=== PATIENT | male | born 1950 | race Caucasian/White ===

== ENCOUNTER 2022-11-28 10:15 | Outpatient (OUT) | payer MEDICARE, SELFPAY ==
--- NOTE | 2022-11-28 10:00 | CA_ITS ---
Patient: JOSE WEST Exam Date: 11/28/2022 : 1950 Gender:M Ordering : DR BERNADETTE KIM M.D. Admission #: [id number] Family : PETRA CASTELLANOS . Order #: [id number] CLICK HERE TO VIEW EXAM ECHOCARDIOGRAM REPORT PROCEDURE: CA ECHO DOPPLER COMPLETE INDICATIONS: Abnormal ECG, Hypertension, Mechanical Aortic Valve (2011) COMPARISON: None. DESCRIPTION: COMPLETE ECHOCARDIOGRAM Real-time transthoracic echocardiography with 2D, M-mode, spectral and color flow Doppler performed. QUALITY: Technical quality was good. LEFT VENTRICLE: Normal chamber size. Mild concentric left ventricular hypertrophy. Normal systolic function. LV EF: Normal left ventricular ejection fraction, (55-60%). DIASTOLIC: Normal diastolic function. ATRIAL SEPTUM: Visually appears intact. LEFT ATRIUM: Normal chamber size. RIGHT ATRIUM: Mild dilatation. RIGHT VENTRICLE: Normal chamber size. Normal right ventricular systolic function. TRICUSPID VALVE: Normal mobility and thickness. No stenosis with trivial regurgitation. Doppler studies reveal moderately (45-60) elevated right sided pressures. RVSP 48 mmHg MITRAL VALVE: Normal mobility and thickness. No evidence of mitral valve stenosis. Mild mitral annular calcification. Trivial mitral regurgitation. AORTIC VALVE: Mechanical valve appears well seated in the aortic position. Unable to assess Doppler flows accurately due to poor alignment of the Doppler beam with the aortic outflow. Trivial aortic regurgitation. AORTIC ROOT: Normal diameter and appearance. PULMONIC VALVE: Normal thickness and mobility. No stenosis. Mild regurgitation. PERICARDIUM: No evidence of pericardial effusion. IVC: Collapses with inspirations. PLEURA: CONCLUSION: 1. Concentric left ventricular hypertrophy. Normal ventricular systolic function. LVEF is 55 to 60%. 2. Mechanical aortic valve is well-seated with trivial regurgitation. Unable to assess systolic flows accurately due to poor alignment of the Doppler beam. 3. Moderately elevated right-sided pressures. 4. No pericardial effusion. Adult Echocardiography Procedure Report Left Ventricle LVEDD (3.7 - 5.6 cm): 4.50 cm LVESD (2.2 - 4.0 cm): 2.82 cm LVIVS thickness (0.6 - 1.2 cm): 1.20 cm LVPW thickness (0.5 - 1.0 cm): 1.20 cm e': 0.11 m/s E - e': 9.91 LVOT Max Gradient: 1.98 mm[Hg] LVOT Area (cm2): 0.70 m/s Peak Velocity (LVOT): 0.70 m/s LVOT Diameter 2.19 cm Left Atrium LA Volume Index (2D A2C): 32.00 ml/m2 Left Atrium Systolic Dimension: 3.41 cm Mitral Valve MV E to A Ratio: 1.08 Mitral Valve A-Wave Peak Velocity: 1.01 m/s Mitral Valve E-Wave Peak Velocity: 1.09 m/s Right Ventricle Aorta AO Root Diam: 3.31 cm Aortic Valve AoV Area (Peak Bubba): 1.08 cm2, 1.08 cm2 Peak Velocity(Antegrade Flow): 2.45 m/s Peak Gradient(Antegrade Flow): 24.00 mm[Hg] Tricuspid Valve Peak Velocity (Regurgitant Flow): 3.37 m/s, 2.83 m/s Pulmonic Valve Mean Gradient: 2.60 mm[Hg] Mean Velocity: 0.76 m/s Peak Velocity: 1.05 m/s, 0.98 m/s Peak Gradient: 4.39 mm[Hg], 3.81 mm[Hg] Right Atrium Right Atrium Systolic Pressure: 68.02 ml, 68.02 ml Dictated by: Jeremy Reddy M.D. on 12/03/2022 at 10:52 Approved by: Jeremy Reddy M.D. on 12/03/2022 at 11:02
== END 2022-11-28 10:16 ==
PROVIDERS: PCP Family Medicine; Visit Provider Internal Medicine Interventional Cardiology
DX: R94.31 Abnormal electrocardiogram [ECG] [EKG] (principal); I10 Essential (primary) hypertension; I51.7 Cardiomegaly; Z95.2 Presence of prosthetic heart valve
CPT/HCPCS: 93306

== ENCOUNTER 2022-12-02 18:33 | Outpatient (RCR) | payer MEDICARE, SELFPAY | END 2022-12-26 23:59 | disposition home or self-care (01) | LOC: MM 18:33 | PROVIDERS: PCP Internal Medicine; Visit Provider Internal Medicine | DX: Z51.81 Encounter for therapeutic drug level monitoring (principal); Z79.01 Long term (current) use of anticoagulants; I48.91 Unspecified atrial fibrillation | CPT/HCPCS: 85610; G0463 ==

== ENCOUNTER 2023-01-01 10:08 | Outpatient (RCR) | payer MEDICARE, SELFPAY | END 2023-01-26 17:06 | disposition home or self-care (01) | LOC: MM 10:08 | PROVIDERS: PCP Internal Medicine; Visit Provider Internal Medicine | DX: Z51.81 Encounter for therapeutic drug level monitoring (principal); Z79.01 Long term (current) use of anticoagulants; I48.91 Unspecified atrial fibrillation | CPT/HCPCS: 85610; G0463 ==

== ENCOUNTER 2023-01-27 09:35 | Outpatient (RCR) | payer MEDICARE, SELFPAY | END 2023-02-26 17:41 | disposition home or self-care (01) | LOC: MM 09:35 | PROVIDERS: PCP Internal Medicine; Visit Provider Internal Medicine | DX: Z51.81 Encounter for therapeutic drug level monitoring (principal); Z79.01 Long term (current) use of anticoagulants; I48.91 Unspecified atrial fibrillation | CPT/HCPCS: 85610; G0463 ==

== ENCOUNTER 2023-02-27 10:35 | Outpatient (RCR) | payer MEDICARE, SELFPAY | END 2023-03-27 16:59 | disposition home or self-care (01) | LOC: MM 10:35 | PROVIDERS: PCP Internal Medicine; Visit Provider Internal Medicine | DX: Z51.81 Encounter for therapeutic drug level monitoring (principal); Z79.01 Long term (current) use of anticoagulants; I48.91 Unspecified atrial fibrillation | CPT/HCPCS: 85610; G0463 ==

== ENCOUNTER 2023-03-30 02:05 | Outpatient (RCR) | payer MEDICARE, SELFPAY | END 2023-04-28 17:28 | disposition home or self-care (01) | LOC: MM 02:05 | PROVIDERS: PCP Family Medicine; Visit Provider Internal Medicine | DX: Z51.81 Encounter for therapeutic drug level monitoring (principal); Z79.01 Long term (current) use of anticoagulants; I48.91 Unspecified atrial fibrillation | CPT/HCPCS: 85610; G0463 ==

== ENCOUNTER 2023-03-30 14:39 | Outpatient (OUT) | payer MEDICARE, SELFPAY | END 2023-03-30 14:40 | disposition home or self-care (01) | LOC: PST 14:39 | PROVIDERS: PCP Family Medicine; Visit Provider Surgery | DX: Z01.818 Encounter for other preprocedural examination (principal); R19.5 Other fecal abnormalities ==

== ENCOUNTER 2023-04-08 06:20 | Day surgery (SDC) | payer MEDICARE, SELFPAY ==
--- NOTE | 2023-04-08 | OP_ITS ---
OPERATION DATE: ??04/08/2023 PREOPERATIVE DIAGNOSIS:? Positive fecal occult blood. POSTOPERATIVE DIAGNOSIS:? Severe sigmoid diverticulosis. PROCEDURE:? Colonoscopy to cecum. SURGEON:? Leo Knowles M.D. ANESTHESIA:? Monitored anesthesia care. ESTIMATED BLOOD LOSS:? Zero. INDICATIONS AND CONSENT:? Patient is a 73-year-old male with recent positive fecal occult blood.? Indications, risks, benefits, alternatives of proceeding with colonoscopy were explained extensively to the patient, including the risks of bleeding, colon perforation or anesthetic complications.? All of his questions were answered.? Informed consent was obtained. PROCEDURE:? Patient brought to the operating room, placed in the left lateral decubitus position.? Monitored anesthesia care was provided.? Rectal exam was performed which showed no masses or blood.? The scope was inserted into the anal canal.? Under direct visualization was advanced to the cecum where cecal markings were clearly identified.? There was noted to be a fair prep with some brown liquid stool and semi-solid stool throughout the colon that was partially irrigated clear.? Upon withdrawal of the scope, mucosal surfaces were carefully examined.? There were no mass lesions or polyps.? No inflammatory changes or ulcerations.? There was severe sigmoid diverticulosis without inflammatory changes or scarring.? The scope was retroflexed in the anal canal.? There was no significant hemorrhoidal disease.? Scope was then withdrawn.? Patient tolerated procedure well, was sent to recovery room in good condition.screening colonoscopy should be in 10 years if patient is in good health. CC:? Abhishek Wooten M.D. [id number]
[2023-04-08 06:38] VITALS: BP 135/71; PULSE 60; RESP 16; TEMP 35.9; O2SAT 100; BMI 35.2
[2023-04-08] MEDS: LACTATED RINGER'S SOLUTION 1,000 ML 50 ML IV (07:01)
[2023-04-08 07:59] VITALS: BP 98/54; PULSE 52; RESP 20; O2SAT 95
[2023-04-08 08:03] VITALS: BP 96/49; PULSE 60; RESP 20; O2SAT 93
[2023-04-08 08:18] VITALS: BP 122/66; PULSE 63; RESP 20; O2SAT 94
== END 2023-04-08 08:18 | disposition home or self-care (01) ==
PROVIDERS: PCP Family Medicine; Visit Provider Surgery
PROC: (CPT 45378; principal; 2023-04-08 07:30)
DX: R19.5 Other fecal abnormalities (principal); K57.30 Diverticulosis of large intestine without perforation or abscess without bleeding; I25.10 Atherosclerotic heart disease of native coronary artery without angina pectoris; J44.9 Chronic obstructive pulmonary disease, unspecified; I10 Essential (primary) hypertension; K21.9 Gastro-esophageal reflux disease without esophagitis; I25.2 Old myocardial infarction; E78.5 Hyperlipidemia, unspecified; Z79.01 Long term (current) use of anticoagulants; E66.01 Morbid (severe) obesity due to excess calories; Z68.35 Body mass index [BMI] 35.0-35.9, adult; Z95.2 Presence of prosthetic heart valve; G47.33 Obstructive sleep apnea (adult) (pediatric); Z79.82 Long term (current) use of aspirin; Z87.891 Personal history of nicotine dependence
CPT/HCPCS: 45378; J2704

== ENCOUNTER 2023-04-29 00:18 | Outpatient (RCR) | payer MEDICARE, SELFPAY | END 2023-05-28 16:07 | disposition home or self-care (01) | LOC: MM 00:18 | PROVIDERS: PCP Family Medicine; Visit Provider Internal Medicine | DX: Z51.81 Encounter for therapeutic drug level monitoring (principal); Z79.01 Long term (current) use of anticoagulants; I48.91 Unspecified atrial fibrillation | CPT/HCPCS: 85610; G0463 ==

== ENCOUNTER 2023-05-29 09:42 | Outpatient (RCR) | payer MEDICARE, SELFPAY | END 2023-06-26 15:25 | disposition home or self-care (01) | LOC: MM 09:42 | PROVIDERS: PCP Family Medicine; Visit Provider Internal Medicine | DX: Z51.81 Encounter for therapeutic drug level monitoring (principal); Z79.01 Long term (current) use of anticoagulants; I48.91 Unspecified atrial fibrillation | CPT/HCPCS: 85610; G0463 ==

== ENCOUNTER 2023-06-29 02:03 | Outpatient (RCR) | payer MEDICARE, SELFPAY | END 2023-07-29 17:06 | disposition home or self-care (01) | LOC: MM 02:03 | PROVIDERS: PCP Family Medicine; Visit Provider Internal Medicine | DX: Z51.81 Encounter for therapeutic drug level monitoring (principal); Z79.01 Long term (current) use of anticoagulants; I48.91 Unspecified atrial fibrillation ==

== ENCOUNTER 2023-07-30 01:42 | Outpatient (RCR) | payer MEDICARE, SELFPAY | END 2023-08-27 17:33 | disposition home or self-care (01) | LOC: MM 01:42 | PROVIDERS: PCP Family Medicine; Visit Provider Internal Medicine | DX: Z51.81 Encounter for therapeutic drug level monitoring (principal); Z79.01 Long term (current) use of anticoagulants; I48.91 Unspecified atrial fibrillation | CPT/HCPCS: 85610; G0463 ==

== ENCOUNTER 2023-08-28 01:23 | Outpatient (RCR) | payer MEDICARE, SELFPAY | END 2023-09-25 13:55 | disposition home or self-care (01) | LOC: MM 01:23 | PROVIDERS: PCP Family Medicine; Visit Provider Internal Medicine | DX: Z51.81 Encounter for therapeutic drug level monitoring (principal); Z79.01 Long term (current) use of anticoagulants; I48.91 Unspecified atrial fibrillation | CPT/HCPCS: 85610; G0463 ==

== ENCOUNTER 2023-09-28 00:14 | Outpatient (RCR) | payer MEDICARE, SELFPAY | END 2023-10-27 17:56 | disposition home or self-care (01) | LOC: MM 00:14 | PROVIDERS: PCP Family Medicine; Visit Provider Internal Medicine | DX: Z51.81 Encounter for therapeutic drug level monitoring (principal); Z79.01 Long term (current) use of anticoagulants; I48.91 Unspecified atrial fibrillation | CPT/HCPCS: 85610; G0463 ==

== ENCOUNTER 2023-10-28 00:20 | Outpatient (RCR) | payer MEDICARE, SELFPAY | END 2023-11-27 11:17 | disposition home or self-care (01) | LOC: MM 00:20 | PROVIDERS: PCP Family Medicine; Visit Provider Internal Medicine | DX: Z51.81 Encounter for therapeutic drug level monitoring (principal); Z79.01 Long term (current) use of anticoagulants; I48.91 Unspecified atrial fibrillation | CPT/HCPCS: 85610; G0463 ==

== ENCOUNTER 2023-11-26 10:37 | Outpatient (OUT) | payer MEDICARE, SELFPAY ==
--- OUTSIDE RECORDS SUMMARY | 2023-11-26 11:00 | XMS_ITS ---
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 Name Role Phone EMAUNEL ., DR LAMBERT Primary Care Unavailable FAWWAD, DIEZ H Attending Unavailable FAWWAD, DIEZ H Admitting Unavailable HOY ., DR LAMBERT Primary Care Unavailable FAWWAD, DIEZ H Attending Unavailable FAWWAD, DIEZ H Admitting Unavailable FAWWAD, DIEZ H Admitting Unavailable HOY ., DR LAMBERT Primary Care Unavailable FAWWAD, DIEZ H Attending Unavailable HOY ., DR LAMBERT Primary Care Unavailable FAWWAD, DIEZ H Attending Unavailable FAWWAD, DIEZ H Admitting Unavailable HOY ., DR LAMBERT Primary Care Unavailable FAWWAD, DIEZ H Attending Unavailable FAWWAD, DIEZ H Admitting Unavailable HOY ., DR LAMBERT Primary Care Unavailable HOY ., DR LAMBERT Consulting Unavailable HOY ., DR LAMBERT Admitting Unavailable HOY ., DR LAMBERT Attending Unavailable FAWWAD, DIEZ H Admitting Unavailable HOY ., DR LAMBERT Primary Care Unavailable FAWWAD, DIEZ H Attending Unavailable FAWWAD, DIEZ H Admitting Unavailable HOY ., DR LAMBERT Primary Care Unavailable FAWWAD, DIEZ H Attending Unavailable FAWWAD, DIEZ H Admitting Unavailable HOY ., DR LAMBERT Primary Care Unavailable FAWWAD, DIEZ H Attending Unavailable HOY ., DR LAMBERT Primary Care Unavailable FAWWAD, DIEZ H Attending Unavailable FAWWAD, DIEZ H Admitting Unavailable HOY ., DR LAMBERT Primary Care Unavailable FAWWAD, DIEZ H Attending Unavailable FAWWAD, DIEZ H Admitting Unavailable FAWWAD, DIEZ H Admitting Unavailable HOY ., DR LAMBERT Primary Care Unavailable FAWWAD, DIEZ H Attending Unavailable HOY ., DR LAMBERT Primary Care Unavailable JACKIE, DR AMBROSIO Boggs Consulting Unavailabl e REINJOSE A, DR AMBROSIO Boggs Attending Unavailabl e JACKIE, DR AMBROSIO Boggs Admitting Unavailabl e BAILEY ., VAL Consulting Unavailable HOY ., DR LAMBERT Attending Unavailable HOY ., DR LAMBERT Admitting Unavailable HOY ., DR LAMBERT Consulting Unavailable HOY ., DR LAMBERT Primary Care Unavailable REINECK, DR AMBROSIO Boggs Consulting Unavailabl e SNELL, MARTY Consulting Unavailable HOY ., DR LAMBERT Primary Care Unavailable HOY ., DR LAMBERT Admitting Unavailable HOY ., DR LAMBERT Consulting Unavailable HOY ., DR LAMBERT Attending Unavailable NEED[place]LE, DR LISBET Santamaria Consulting Unavailable RAULGAGE Consulting Unavailable HOY ., DR LAMBERT Primary Care Unavailable HOY ., DR LAMBERT Admitting Unavailable HOY ., DR LAMBERT Consulting Unavailable HOY ., DR LAMBERT Attending Unavailable HOY ., DR LAMBERT Primary Care Unavailable ELMP, DR FLEMING Consulting [facility]available [facility] DR FLEMING Attending Unavailable JULIO, DR FLMEING Admitting Unavailable Petra Wooten Primary Care Physician [phone] ALAYNA LANGLEY Attending Unavailable Leo TATE Attending Unavailable Leo TATE Attending Unavailable Allergies Allergy Classification Reported Allergen(s) Allergy Type Date of Onset Reaction(s) Facility (1 source) No Known Medication Allergies; Translations: [No Known Medication Allergies] Propensity to adverse reactions (disorder) [facility] Rep[facility] Encounters Encounter Date Encounter Type Care Provider Facility Start: 04-08-2023 End: 04-09-2023 ambulatory Leo TATE Facility:CD:[id number] Start: 03-18-2023 End: 03-19-2023 ambulatory Leo TATE Facility:[facility] Start: 03-18-2023 End: 03-18-2023 Patient encounter procedure Leo TATE General Surgery [facility]/Paula Villaseñor Start: 03-18-2023 End: 03-18-2023 [facility] Start: 03-06-2023 ambulatory Leo TATE Facility:[facility] Start: 03-05-2023 ambulatory Leo TATE Facility:[facility] Start: 11-14-2022 End: 11-15-[address] PETRA WOOTEN . Facility:[facility] Start: 10-27-2022 End: 11-26-[address] PETRA WOOTEN . Facility:[facility] Start: 09-29-2022 End: 10-24-[address] PETRA WOOTEN . Facility:[facility] Start: 08-27-2022 End: 09-26-[address] PETRA WOOTEN . Facility:[facility] Start: 07-30-2022 End: 08-27-[address] PETRA WOOTEN . Facility:[facility] Start: 06-30-2022 End: 07-30-[address] PETRA WOOTEN . Facility:[facility] Start: 06-08-2022 End: 06-08-[address] PETRA WOOTEN . Facility:[facility] Start: 06-02-2022 End: 06-02-[address] PETRA WOOTEN . Facility:[facility] Start: 05-29-2022 End: 06-29-2022 ambulatory Juan Luis EPSTEINLONNIE Facility:[facility] Start: 04-29-2022 End: 05-28-2022 ambulatory Juan Luis BEATRIZ Facility:[facility] Start: 03-30-2022 End: 04-28-2022 ambulatory Juan Luis BEATRIZ Facility:[facility] Start: 03-12-2022 End: 03-13-[address] PETRA WOOTEN . Facility:[facility] Start: 02-27-2022 End: 03-29-2022 ambulatory Juan Luis EPSTEINLONNIE Facility:[facility] Start: 01-27-2022 End: 02-26-2022 ambulatory Juan Luis BEATRIZ Facility:[facility] Start: 12-27-2021 End: 01-24-[address] PETRA WOOTEN . Facility:[facility] Start: 12-25-2021 End: 12-26-[address] PETRA WOOTEN . Facility:[facility] Start: 12-17-2021 End: 12-18-2021 Evaluation and management of inpatient DR PETRA WOOTEN . Facility:[facility] Immunizations Immunization Date Immunization Notes Care Provider Fa cility 04-03-2022 SARS-CoV-2 (COVID-19 ) [id number] Leo TATE [facility] 12-02-2021 SARS-CoV-2 mRNA (obtzrgochge-lacx-yling se) vaccine Leo TATE [facility] 03-23-2021 SARS-CoV-2 (COVID-19 ) mRNA BNT-162b2 vax Leo [facility] Comment on above: Result Comment: 2022: [id number] 08-30-2020 SARS-CoV-2 (COVID-19 ) mRNA BNT-162b2 vax [employer] [facility] Comment on above: Result Comment: 2022: [id number] 08-09-2020 SARS-CoV-2 (COVID-19 ) mRNA BNT-162b2 vax Leo [facility] Comment on above: Result Comment: 2022: [id number] Medications Current Medications Medication Drug Class(es) Dates Sig (Normalized) Sig (Original) aspirin 81 mg delayed release oral tablet (1 source) Platelet Aggregation Inhibitor, Nonsteroidal Anti-inflammatory Drug Start: 03-13-2023 take 1 tablet by mouth once daily aspirin 81 mg Oral EC Tab 81 mg = 1 tab(s), Oral, Daily, Refills(s) 0 Start Date: 03/13/23 Status: Ordered carvedilol 25 mg oral tablet (1 source) alpha-Adrenergic Benja, beta-Adrenergic Benja Start: 03-13-2023 take 1 tablet by mouth every eight hours carvedilol 25 mg Tab 25 mg = 1 tab(s), Oral, q8hr, Refills(s) 0 Start Date: 03/13/23 Status: Ordered Centrum Silver oral tablet (1 source) Start: 03-13-2023 take 1 tablet by mouth once daily Centrum Silver oral tablet 1 tab(s), Oral, Daily, Refill(s) 0 Start Date: 03/13/23 Status: Ordered chlorthalidone 25 mg oral tablet (1 source) Thiazide-like Diuretic Start: 03-13-2023 take 1 tablet by mouth once daily chlorthalidone 25 mg Tab 25 mg = 1 tab(s), Oral, Daily, Refills(s) 0 Start Date: 03/13/23 Status: Ordered citalopram 20 mg oral tablet (1 source) Serotonin Reuptake Inhibitor Start: 03-18-2023 take 1 tablet by mouth once daily CeleXA 20 mg Tab 20 mg = 1 tab(s), Oral, Daily, Refills(s) 0 Start Date: 03/18/23 Status: Ordered cloNIDine hydrochloride 0.1 mg oral tablet (1 source) Central alpha-2 Adrenergic Agonist Start: 03-13-2023 take 1 tablet by mouth three times daily cloNIDine 0.1 mg tab 0.1 mg = 1 tab(s), Oral, TID, Refills(s) 0 Start Date: 03/13/23 Status: Ordered doxazosin 8 mg oral tablet (1 source) alpha-Adrenergic Benja Start: 03-13-2023 take 1 tablet by mouth once daily doxazosin 8 mg oral tablet 8 mg = 1 tab(s), Oral, Daily, Refills(s) 0 Start Date: 03/13/23 Status: Ordered gemfibrozil 600 mg oral tablet (1 source) Peroxisome Proliferator Receptor alpha Agonist Start: 03-13-2023 take 1 tablet by mouth twice daily Lopid 600 mg Tab 600 mg = 1 tab(s), Oral, BID, Refills(s) 0 Start Date: 03/13/23 Status: Ordered lisinopril 40 mg oral tablet (1 source) Angiotensin Converting Enzyme Inhibitor Start: 03-13-2023 take 1 tablet by mouth once daily lisinopril 40 mg Tab 40 mg = 1 tab(s), Oral, Daily, Refills(s) 0 Start Date: 03/13/23 Status: Ordered pantoprazole 40 mg delayed release oral tablet (1 source) Proton Pump Inhibitor Start: 03-13-2023 take 1 tablet by mouth once daily Pantoprazole [address] Tab 40 mg = 1 tab(s), Oral, Daily, Refills(s) 0 Start Date: 03/13/23 Status: Ordered simvastatin 40 mg oral tablet (1 source) HMG-CoA Reductase Inhibitor Start: 03-13-2023 take 1 tablet by mouth once daily in the evening simvastatin 40 mg Tab 40 mg = 1 tab(s), Oral, qPM, Refills(s) 0 Start Date: 03/13/23 Status: Ordered warfarin sodium 4 mg oral tablet (1 source) Vitamin K Antagonist Start: 03-13-2023 warfarin 4 mg Tab 4 mg = 1 tab(s), Oral, as directed, Refills(s) 0 Start Date: 03/13/23 Status: Ordered Payers Date Payer Category Payer Unknown [id number] 1957 Medicare [id number] 1957 Unknown [id number] 1957 Unknown [id number] 1950 Unknown [id number] 2.16.84 0.1.914599.3.579.2.593 1950 Unknown [id number] 2.16.84 0.1.147863.3.579.2.593 1950 Unknown [id number] 2.16.84 0.1.235650.3.579.2.593 1950 Unknown [id number] 2.16.84 0.1.035567.3.579.2.593 1950 Unknown [id number] 2.16.84 0.1.943623.3.579.2.593 1950 Unknown [id number] 2.16.84 0.1.897213.3.579.2.593 1950 Unknown [id number] 2.16.84 0.1.432769.3.579.2.593 1950 Unknown [id number] 2.16.84 0.1.534884.3.579.2.593 1950 Unknown [id number] 2.16.84 0.1.373988.3.579.2.593 1950 Unknown [id number] 2.16.84 0.1.619339.3.579.2.593 1950 Unknown [id number] 2.16.84 0.1.785686.3.579.2.593 1950 Unknown [id number] 2.16.84 0.1.663891.3.579.2.593 1950 Unknown [id number] 2.16.84 0.1.722516.3.579.2.593 1950 Unknown [id number] 2.16.84 0.1.589319.3.579.2.593 1950 Unknown [id number] 2.16.84 0.1.438571.3.579.2.593 1950 Unknown [id number] 2.16.84 0.1.842689.3.579.2.593 1950 Unknown [id number] 2.16.84 0.1.024036.3.579.2.593 1950 Unknown [id number] 2.16.8 40.1.288779.3.579.2.727 1950 Unknown [id number] 2.16.8 40.1.184562.3.579.2.727 1950 Unknown [id number] 2.16.8 40.1.369099.3.579.2.727 Problems Active Problems Problem Classification Problem Date Documented Da te Episodic/Chronic Chronic obstructive pulmonary disease and bronchiectasis (2 sources) Chronic obstructive pulmonary disease, unspecified; Translations: [Chronic obstructive lung disease] Onset: 01-01-2022 03-13-2023 Chronic Congestive heart failure; nonhypertensive (2 sources) Heart failure, unspecified; Translations: [Heart failure] Onset: 06-11-2022 03-13-2023 Chronic Coronary atherosclerosis and other heart disease (5 sources) Old myocardial infarction; Translations: [Coronary arteriosclerosis] Onset: 06-11-2022 03-13-2023 Chronic Diabetes mellitus without complication (1 source) Type 2 diabetes mellitus without complications; Translations: [TYPE 2 DM WITHOUT COMPLICATIONS] Onset: 11-17-2022 Chronic Disorders of lipid metabolism (3 sources) Hyperlipidemia, unspecified; Translations: [Pure hypercholesterolemi a, unspecified] Onset: 06-11-2022 03-13-2023 Chronic Diverticulosis and diverticulitis (1 source) Diverticular disease 03-13-2023 Chronic Esophageal disorders (2 sources) Gastro-esophageal reflux disease without esophagitis; Translations: [Gastroesophageal reflux disease] Onset: 11-17-2022 03-13-2023 Chronic Essential hypertension (5 sources) Essential (primary) hypertension; Translations: [Essential hypertension] Onset: 11-14-2022 Chronic Headache; including migraine (4 sources) Headache; including migraine; Translations: [HEADACHE UNSPECIFIED] Onset: 12-25-2021 Heart valve disorders (1 source) Presence of prosthetic heart valve; Translations: [PRESENCE OF PROSTHETIC HEART VALVE] Onset: 01-01-2022 Chronic Hemorrhoids (1 source) Internal hemorrhoids 03-13-2023 Episodic Hypertension with complications and secondary hypertension (2 sources) Hypertensive heart disease with heart failure; Translations: [Hypertensive urgency] Onset: 01-01-2022 Chronic Other aftercare (5 sources) Encounter for therapeutic drug level monitoring; Translations: [ENC THERAPEUTC DRUG LEVL MONITORING] Onset: 01-01-2022 Episodic Other aftercare (1 source) 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; Translations: [GROUP HOME CURRNT USE ANTICOAGULANTS] Onset: 11-26-2022 Episodic Other aftercare (2 sources) Long-term current use of anticoagulant; Translations: [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] Onset: 03-18-2023 Episodic Other and ill-defined heart disease (1 source) Cardiomegaly 03-13-2023 Chronic Other circulatory disease (1 source) Carotid bruit 03-13-2023 Episodic Other gastrointestinal disorders (1 source) Abnormal feces; Translations: [Other fecal abnormalities] Onset: 03-18-2023 Episodic Other gastrointestinal disorders (1 source) Occult blood in stools 03-13-2023 Episodic Other nutritional; endocrine; and metabolic disorders (1 source) Body mass index 30+ - obesity 03-18-2023 Chronic Other nutritional; endocrine; and metabolic disorders (1 source) Morbid obesity 03-18-2023 Chronic Other screening for suspected conditions (not mental disorders or infectious disease) (2 sources) Encounter for screening for malignant neoplasm of prostate; Translations: [Encounter for screening for malignant neoplasm of rectum] Onset: 11-17-2022 Episodic Residual codes; unclassified (1 source) Sleep apnea 03-13-2023 Chronic Substance-related disorders (1 source) Nicotine dependence 03-18-2023 Chronic Unclassified (1 source) PERSONAL HISTORY OF COVID-19; Translations: [PERSONAL HISTORY OF COVID-19] Onset: 06-11-2022 Unclassified (4 sources) CONTACT W/AND (SUSP) EXPOS COVID-19; Translations: [CONTACT W/AND (SUSP) EXPOS COVID-19] Onset: 01-01-2022 Unclassified (1 source) COUGH, UNSPECIFIED; Translations: [COUGH, UNSPECIFIED] Onset: 06-07-2022 Past or Other Problems Problem Classification Problem Date Documented Da te Episodic/Chronic Diabetes mellitus without complication (4 sources) Hyperglycemia, unspecified; Translations: [HYPERGLYCEMIA UNSPECIFIED] Onset: 06-08-2022 Episodic Other aftercare (1 source) 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; Translations: [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 CURRENT DRUG THERAPY] Onset: 06-11-2022 Episodic Other aftercare (1 source) custodial (current) use of aspirin; Translations: [GROUP HOME CURRENT USE OF ASPIRIN] Onset: 01-01-2022 Episodic Other lower respiratory disease (1 source) Shortness of breath; Translations: [SHORTNESS OF BREATH] Onset: 12-24-2021 Episodic Other upper respiratory disease (1 source) Nasal congestion; Translations: [NASAL CONGESTION] Onset: 06-07-2022 Episodic Screening and history of mental health and substance abuse codes (1 source) Personal history of nicotine dependence; Translations: [PERSONAL HISTORY OF NICOTINE DEPEND] Onset: 01-01-2022 Episodic Unclassified (1 source) CONTACT W/AND (SUSP) EXPOS COVID-19; Translations: [CONTACT W/AND (SUSP) EXPOS COVID-19] Onset: 06-02-2022 Procedures Date Procedure Procedure Detail Performing Clinician Start: 11-14-[address] LIZZIE WOOTEN . Comment on above: Performed By: #### C MP, BNP #### [facility] [address] [place] [address] Dr. Kamlajit Browning Start: 03-17-2018 Colonoscopy Leo KONG Start: 08-28-2011 Replacement of aorti c valve Leo TATE Results Test Name Value Interpretation Reference Range Facility Outside Colonoscopyon 2022 Outside Colonoscopy [id number]#1 .00TIFF [facility] Reminderson 04-09-2023 Reminders - From: Karlene Stewart LPN To: N - Clinical; Sent: 04/09/2023 10:49:10 EDT Show up: 03/09/2033 07:00:00 EDT Subject: colonoscopy recall Due Date/Time: 04/08/2033 07:00:00 EDT Reminder/Recall Patient due for screening colonoscopy 04/08/2033. [facility] Consent for Procedure/Surger yon 03-19-2023 Consent for Procedure/Surgery [id number] 1.00CD:127 [facility] Facesheeton 03-19-2023 Facesheet [id number]# 1.00CD:127 [facility] Ambulatory Visit Summaryon 0 03-18-2023 Ambulatory Visit Summary MARTIN WEST :1950 Visit Date:03/18/2023 Ambulatory Visit Instructions Your Diagnosis Fecal occult blood test positive custodial current use of anticoagulant Your Care Team Attending Physician - BENSON RODRIGUES, Leo Melgar Primary Care Physician - Petra Wooten MD This Is Your Medications List Contact prescribing physician if questions or concerns aspirin (aspirin 81 mg Oral EC Tab) carvedilol (carvedilol 25 mg Tab) chlorthalidone (chlorthalidone 25 mg Tab) citalopram (CeleXA 20 mg Tab) clonidine (cloNIDine 0.1 mg tab) doxazosin (doxazosin 8 mg oral tablet) gemfibrozil (Lopid 600 mg Tab) lisinopril (lisinopril 40 mg Tab) multivitamin with minerals (Centrum Silver oral tablet) pantoprazole (Pantoprazole [address] Tab) simvastatin (simvastatin 40 mg Tab) warfarin (warfarin 4 mg Tab) Procedures Performed Colonoscopy (03/17/2018), AVR - Aortic valve replacement (08/2011). Discharge Vitals Heart Rate (Peripheral) 70 Respiratory Rate 16 Blood Pressure 130/86 Height 168.9 cm Height 66 in Weight 100.8 kg Weight 221.76 lb BMI 35.33 Medications What How Much When Instructions Unchanged aspirin (aspirin 81 mg Oral EC Tab) 1 Tablets By Mouth Every day Contact prescribing physician if questions or concerns Unchanged carvedilol (carvedilol 25 mg Tab) 1 Tablets By Mouth Every 8 hours Contact prescribing physician if questions or concerns Unchanged chlorthalidone (chlorthalidone 25 mg Tab) 1 Tablets By Mouth Every day Contact prescribing physician if questions or concerns Unchanged citalopram (CeleXA 20 mg Tab) 1 Tablets By Mouth Every day Contact prescribing physician if questions or concerns Unchanged clonidine (cloNIDine 0.1 mg tab) 1 Tablets By Mouth 3 times a day Contact prescribing physician if questions or concerns Unchanged doxazosin (doxazosin 8 mg oral tablet) 1 Tablets By Mouth Every day Contact prescribing physician if questions or concerns Unchanged gemfibrozil (Lopid 600 mg Tab) 1 Tablets By Mouth 2 times a day Contact prescribing physician if questions or concerns Unchanged lisinopril (lisinopril 40 mg Tab) 1 Tablets By Mouth Every day Contact prescribing physician if questions or concerns Unchanged multivitamin with minerals (Centrum Silver oral tablet) 1 Tablets By Mouth Every day Contact prescribing physician if questions or concerns Unchanged pantoprazole (Pantoprazole [address] Tab) 1 Tablets By Mouth Every day Contact prescribing physician if questions or concerns Unchanged simvastatin (simvastatin 40 mg Tab) 1 Tablets By Mouth Once a day (in the evening) Contact prescribing physician if questions or concerns Unchanged warfarin (warfarin 4 mg Tab) 1 Tablets By Mouth as directed Contact prescribing physician if questions or concerns Allergies No Known Allergies No Known Medication Allergies Problems Ongoing - Any problem that you are currently receiving treatment for. 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 Nicotine dependence Normal [facility] Office Visiton 03-18-2023 Follow-up visit [id number] Martin West 1950 M Date Provider Department Center 03/18/2023 [id number], EHAB CARD [facility] No family history on file Level of Service:70330 [place] OFFICE/OUTPATIENT ESTABLISHED LOW MDM 20-29 MIN Normal [facility] Physician Referralon 023 Physician Referral [id number]. 00CD:127 Normal [facility] INSULINon 11-15-2022 Insulin 20.3 uIU/mL Normal 2.6-24.9 [facility] Comment on above: Performed By: #### I NSULIN #### [facility] [address] [place] [address] Dr. Kamaljit Browning CBC AUTO DIFFon 11-14-2022 BASO # 0.0 103/ul Normal 0.0-0.1 [facility] Comment on above: Performed By: #### C MP, BNP #### [facility] [address] [place] [address] Dr. Kamaljit Browning Basophils/100 WBC (Bld) 0.8 % Normal 0.2-2.0 [facility] Comment on above: Performed By: #### C MP, BNP #### [facility] [address] [place] [address] Dr. Kamaljit Brownnig EO # 0.1 103/ul Normal 0.0-0.7 [facility] Comment on above: Performed By: #### C MP, BNP #### [facility] [address] [place] [address] Dr. Kamaljit Browning Eosinophils/100 WBC (Bld) 1.7 % Normal 0.9-7.0 [facility] Comment on above: Performed By: #### C MP, BNP #### [facility] [address] [place] [address] Dr. Kamaljit Browning Erythrocyte distribution width (RBC) [Ratio] 12.7 % Normal 11.0-15.0 [facility] Comment on above: Performed By: #### C MP, BNP #### [facility] [address] [place] [address] Dr. Kamaljit Browning Hematocrit (Bld) [Volume fraction] 38.4 % Critically low 42.0-54.0 [facility] Comment on above: Performed By: #### C MP, BNP #### [facility] [address] [place] [address] Dr. Kamaljit Browning Hemoglobin (Bld) [Mass/Vol] 12.8 g/dL Critically low 14.0-18.0 [facility] Comment on above: Performed By: #### C MP, BNP #### [facility] [address] [place] [address] Dr. Kamaljit Browning IG # 0.02 10e3/ul Normal 0.00-0.03 [facility] Comment on above: Performed By: #### C MP, BNP #### [facility] [address] [place] [address] Dr. Kamaljit Browning IG % 0.4 % Normal 0.0-0.5 [facility] Comment on above: Performed By: #### C MP, BNP #### [facility] [address] [place] [address] Dr. Kamaljit Browning LYMPH # 0.8 103/ul Critically low 1.2-3.8 [facility] Comment on above: Performed By: #### C MP, BNP #### [facility] [address] [place] [address] Dr. Kamaljit Browning Lymphocytes/100 WBC (Bld) 15.2 % Critically low 20.5-60.0 [facility] Comment on above: Performed By: #### C MP, BNP #### [facility] [address] [place] [address] Dr. Kamaljit Browning MANUAL DIFF REQ NO Normal [facility] Comment on above: Performed By: #### C MP, BNP #### [facility] [address] [place] [address] Dr. Kamaljit Browning MCH (RBC) [Entitic mass] 30.6 pg Normal 25.9-34.0 [facility] Comment on above: Performed By: #### C MP, BNP #### [facility] [address] [address] [address] Kamaljit Browning MCHC (RBC) [Mass/Vol] 33.3 g/dL Normal 29.9-35.2 [facility] Comment on above: Performed By: #### C MP, BNP #### [facility] [address] [place] [address] Dr. Kamaljit Browning MCV (RBC) [Entitic vol] 91.9 fL Normal 80.0-94.0 [facility] Comment on above: Performed By: #### C MP, BNP #### [facility] [address] [place] [address] Dr. Kamaljit Browning MONO # 0.5 103/ul Normal 0.3-0.8 [facility] Comment on above: Performed By: #### C MP, BNP #### [facility] [address] [place] [address] Dr. Kamaljit Browning Monocytes/100 WBC (Bld) 8.9 % Normal 1.7-12.0 [facility] Comment on above: Performed By: #### C MP, BNP #### [facility] [address] [place] [address] Dr. Kamaljit Browning NEUT # 3.8 103/ul Normal 1.4-6.5 [facility] Comment on above: Performed By: #### C MP, BNP #### [facility] [address] [place] [address] Dr. Kamaljit Browning Neutrophils/100 WBC (Bld) 73.0 % Normal 43.0-75.0 [facility] Comment on above: Performed By: #### C MP, BNP #### [facility] [address] [place] [address] Dr. Kamaljit Browning Platelet mean volume (Bld) [Entitic vol] 12.5 fL Normal 9.5-13.5 [facility] Comment on above: Performed By: #### C MP, BNP #### [facility] [address] [place] [address] Dr. Kamaljit Browning PLT 126 103/ul Critically low 150-450 [facility] Comment on above: Performed By: #### C MP, BNP #### [facility] [address] [address] [address] Kamaljit Browning RBC 4.18 106/ul Critically low 4.70-6.10 [facility] Comment on above: Performed By: #### C MP, BNP #### [facility] [address] [address] [address] Kamaljit Browning WBC 5.2 103/ul Normal 4.0-11.0 [facility] Comment on above: Performed By: #### C MP, BNP #### [facility] [address] [address] [address] Kamaljit Browning FREE THYROXINE INDEX T7on FTI 2.31 Normal 1.30-4.50 [facility] Comment on above: Performed By: #### C BC #### [facility] [address] [address] [address] Kamaljit Browning T3U 34.0 % Normal 33.0-40.0 [facility] Comment on above: Performed By: #### C BC #### [facility] [address] [address] [address] Kamaljit Browning T4 [Mass/Vol] 6.80 ug/dL Normal 4.50-12.10 [facility] Comment on above: Performed By: #### C BC #### [facility] [address] [address] [address] Kamaljit Browning GLYCOHEMOGLOBIN A1Con 2022 ADA RECOMMENDATION SEE BELOW Normal [facility] Comment on above: Result Comment: ADA RECOMMENDED LIMIT 4.0 - 6.0 ADA THERAPEUTIC TARGET < 7.0 ACTION SUGGESTED > 7.0 Performed By: #### A 1C #### [facility] [address] [address] [address] Kamaljit Browning Glucose [Mass/Vol] 154 mg/dL Normal [facility] Comment on above: Performed By: #### A 1C #### [facility] [address] [address] [address] Kamaljit Browning HbA1c (Bld) [Mass fraction] 7.0 % Critically high 4.5-6.2 [facility] Comment on above: Performed By: #### A 1C #### [facility] [address] [address] [address] Kamaljit Browning LIPID PROFILEon 11-14-2022 CHOL-HDL RATIO NORM SEE BELOW Normal [facility] Comment on above: Result Comment: 3.3 - 4.4 LOW RISK 4.4 - 7.1 AVERAGE RISK 7.1 - 11.0 MODERATE RISK >11.0 HIGH RISK Performed By: #### A 1C #### [facility] [address] [address] [address] Kamaljit Browning Cholesterol [Mass/Vol] 148 mg/dL Normal <=200 [facility] Comment on above: Performed By: #### A 1C #### [facility] [address] [address] [address] Kamaljit Browning Cholesterol in HDL [Mass/Vol] 41 mg/dL Normal 40-60 [facility] Comment on above: Performed By: #### A 1C #### [facility] [address] [address] [address] Kamaljit Browning Cholesterol in LDL [Mass/Vol] 81.6 mg/dL Normal [facility] Comment on above: Performed By: #### A 1C #### [facility] [address] [address] [address] Kamaljit Browning Cholesterol.total/Ch olesterol in HDL [Mass ratio] 3.6 {ratio} Normal [facility] Comment on above: Performed By: #### A 1C #### [facility] [address] [address] [address] Kamaljit Browning HDL NORMAL > or = 60 mg/dl - LO W CARDIOVASCULAR RISK <40 mg/dl - HIGH CARDIOVASCULAR RISK Normal [facility] Comment on above: Performed By: #### A 1C #### [facility] [address] [address] [address] Kamaljit Browning LDL CALC NORMAL SEE BELOW Normal [facility] Comment on above: Result Comment: <100 mg/dl OPTIMAL 100 - 129 mg/dl NEAR OR ABOVE OPTIMAL 130 - 159 mg/dl BORDERLINE HIGH 160 - 189 mg/dl HIGH >190 mg/dl VERY HIGH Performed By: #### A 1C #### [facility] [address] [place] [address] Dr. Kamaljit Browning Triglyceride [Mass/Vol] 127 mg/dL Normal <=150 [facility] Comment on above: Performed By: #### A 1C #### [facility] [address] [place] [address] Dr. Kamaljit Browning VLDL CALC 25.4 mg/dL Normal [facility] Comment on above: Performed By: #### A 1C #### [facility] [address] [place] [address] Dr. Kamaljit Browning PROF 14(COMP METB)on 023 Albumin [Mass/Vol] 4.2 g/dL Normal 3.4-5.0 [facility] Comment on above: Performed By: #### A 1C #### [facility] [address] [place] [address] Dr. Kamaljit Browning Albumin/Globulin [Mass ratio] 1.3 {ratio} Normal [facility] Comment on above: Performed By: #### A 1C #### [facility] [address] [place] [address] Dr. Kamaljit Browning ALP [Catalytic activity/Vol] 79 U/L Normal 46-116 [facility] Comment on above: Performed By: #### A 1C #### [facility] [address] [place] [address] Dr. Kamaljit Browning ALT [Catalytic activity/Vol] 27 U/L Normal 16-63 [facility] Comment on above: Performed By: #### A 1C #### [facility] [address] [place] [address] Dr. Kamaljit Browning Anion gap [Moles/Vol] 15.0 mmol/L Normal [facility] Comment on above: Performed By: #### A 1C #### [facility] [address] [place] [address] Dr. Kamaljit Browning AST [Catalytic activity/Vol] 23 U/L Normal 15-37 [facility] Comment on above: Performed By: #### A 1C #### [facility] [address] [place], [place] [id number] Dr. Kamaljit Browning Bilirubin [Mass/Vol] 0.3 mg/dL Normal 0.2-1.0 [facility] Comment on above: Performed By: #### A 1C #### [facility] [address] [place] [address] Dr. Kamaljit Browning Calcium [Mass/Vol] 9.0 mg/dL Normal 8.5-10.[address] [facility] Comment on above: Performed By: #### A 1C #### [facility] [address] [place] [address] Dr. Kamaljit Browning Chloride [Moles/Vol] 105 mmol/L Normal 98-107 [facility] Comment on above: Performed By: #### A 1C #### [facility] [address] [place] [address] Dr. Kamaljit Browning CO2 [Moles/Vol] 24.7 mmol/L Normal 21.0-32.0 [facility] Comment on above: Performed By: #### A 1C #### [facility] [address] [place] [address] Dr. Kamaljit Browning Creatinine [Mass/Vol] 1.55 mg/dL Critically high 0.70-1.30 [facility] Comment on above: Performed By: #### A 1C #### [facility] [address] [place] [address] Dr. Kamaljit Browning EGFR-AF SLOVAK 54 mL/min/1.73m2 Critically low >=60 [facility] Comment on above: Performed By: #### A 1C #### [facility] [address] [place] [address] Dr. Kamaljit Browning EGFR-NON AF SLOVAK 45 mL/min/1.73m2 Critically low >=60 [facility] Comment on above: Performed By: #### A 1C #### [facility] [address] [place] [address] Dr. Kamaljit Browning Globulin (S) [Mass/Vol] 3.3 g/dL Normal [facility] Comment on above: Performed By: #### A 1C #### [facility] [address] [place] [address] Dr. Kamaljit Browning Glucose [Mass/Vol] 129 mg/dL Critically high 74-106 [facility] Comment on above: Performed By: #### A 1C #### [facility] [address] [address] [address] Kamaljit Browning Potassium [Moles/Vol] 4.7 mmol/L Normal 3.5-5.1 [facility] Comment on above: Performed By: #### A 1C #### [facility] [address] [address] [address] Kamaljit Browning Protein [Mass/Vol] 7.5 g/dL Normal 6.4-8.[address] [facility] Comment on above: Performed By: #### A 1C #### [facility] [address] [address] [address] Kamaljit Browning Sodium [Moles/Vol] 140 mmol/L Normal 136-[address] [facility] Comment on above: Performed By: #### A 1C #### [facility] [address] [address] [address] Kamaljit Browning Urea nitrogen [Mass/Vol] 30.0 mg/dL Critically high 7.0-18.0 [facility] Comment on above: Performed By: #### A 1C #### [facility] [address] [address] [address] Kamaljit Browning Urea nitrogen/Creatinine [Mass ratio] 19.4 mg/mg Normal [facility] Comment on above: Performed By: #### A 1C #### [facility] [address] [address] [address] Kamaljit Browning TSHon 11-14-2022 TSH 1.597 uIU/mL Normal 0.358-3.740 [facility] Comment on above: Performed By: #### A 1C #### [facility] [address] [address] [address] Kamaljit Browning URIC ACID SERUMon 11-14-2022 Urate [Mass/Vol] 9.4 mg/dL Critically high 3.5-7.2 [facility] Comment on above: Performed By: #### C BC #### [facility] [address] [address] [address] Kamaljit Browning OCC BLD IMMUNO SCREENon 10-27 OCCULT BLOOD Positive Abnormal NEGATIVE [facility] Comment on above: Performed By: #### C MP, BNP #### [facility] [address] [address] [address] Kamaljit Browning POINT OF CARE GLUCOSEon 05-29 Glucose [Mass/Vol] 329 mg/dL Critically high 74-106 [facility] Comment on above: Performed By: #### A 1C #### [facility] [address] [address] [address] Kamaljit Browning Covid-19 PCR ([facility])on SARS-CoV-2 (COVID-19) RNA SOURAV+probe Ql (Unsp spec) Not detected Normal NOT DETECTED [facility] Comment on above: Result Comment: When diagnostic testing is negative, the possibility of a false negative should be considered in the context of a patient's recent exposures and the presence of clinical signs and symptoms consistent with SARS-CoV-2. This test is not yet approved or cleared by the [place] FDA. When there are no FDA-approved or cleared tests available, and other criteria are met, FDA can make tests available under an emergency access mechanism called an Emergency Use Authorization (EUA). The EUA for this test is supported by the [place] of Health and Human Service's declaration that circumstances exist to justify the emergency use of in vitro diagnostics for the detection and/or diagnosis of the virus that causes COVID-19. This EUA will remain in effect for the duration of the COVID-19 declaration justifying emergency of IVDs, unless it is terminated or revoked by the FDA (after which the test may no longer be used). Performed By: #### A 1C #### [facility] [address] [place] [address] Dr. Kamaljit Browning INFLUENZA A AND B AGon 06-02 INFLUANEGH SEE BELOW Normal [facility] Comment on above: Result Comment: Nega tive for Flu A protein angiten. Infection due to Flu A cannot be ruled out. Flu A angiten in the sample may be below the detection limit of the test. Performed By: #### C BC #### [facility] [address] [place] [address] Dr. Kamaljit Browning [facility] SEE BELOW Normal [facility] Comment on above: Result Comment: Nega tive for Flu B protein antigen. Infection due to Flu B cannot be ruled out. Flu B antigen in the sample may be below the detection limit of the test. Performed By: #### C BC #### [facility] [address] [place] [address] Dr. Kamaljit Browning INFLUENZA A AG Negative Normal NEGATIVE SEE COMMENT [facility] Comment on above: Performed By: #### C BC #### [facility] [address] [place] [address] Dr. Kamaljit Browning INFLUENZA B AG Negative Normal NEGATIVE SEE COMMENT [facility] Comment on above: Performed By: #### C BC #### [facility] [address] [place] [address] Dr. Kamaljit Browning INTERNAL CONTROLS Within Normal Limits Normal Wi thin Normal Limits [facility] Comment on above: Performed By: #### C BC #### [facility] [address] [place] [address] Dr. Kamaljit Browning PROF CHEM 8 (BAS METB)on Anion gap [Moles/Vol] 13.1 mmol/L Normal [facility] Comment on above: Performed By: #### C BC #### [facility] [address] [place] [address] Dr. Kamaljit Browning Calcium [Mass/Vol] 8.9 mg/dL Normal 8.5-10.1 [facility] Comment on above: Performed By: #### C BC #### [facility] [address] [place] [address] Dr. Kamaljit Browning Chloride [Moles/Vol] 105 mmol/L Normal 98-107 [facility] Comment on above: Performed By: #### C BC #### [facility] [address] [place] [address] Dr. Kamaljit Browning CO2 [Moles/Vol] 27.3 mmol/L Normal 21.0-32.0 [facility] Comment on above: Performed By: #### C BC #### [facility] [address] [address] [address] Kamaljit Browning Creatinine [Mass/Vol] 1.28 mg/dL Normal 0.70-1.30 [facility] Comment on above: Performed By: #### C BC #### [facility] [address] [address] [address] Kamaljit Browning EGFR-AF SLOVAK >60 Normal >=60 [facility] Comment on above: Performed By: #### C BC #### [facility] [address] [address] [address] Kamaljit Browning EGFR-NON AF SLOVAK 56 mL/min/1.73m2 Critically low >=60 [facility] Comment on above: Performed By: #### C BC #### [facility] [address] [address] [address] Kamaljit Browning Glucose [Mass/Vol] 119 mg/dL Critically high 74-106 [facility] Comment on above: Performed By: #### C BC #### [facility] [address] [address] [address] Kamaljit Browning Potassium [Moles/Vol] 4.4 mmol/L Normal 3.5-5.1 [facility] Comment on above: Performed By: #### C BC #### [facility] [address] [address] [address] Kamaljit Browning Sodium [Moles/Vol] 141 mmol/L Normal 136-[address] [facility] Comment on above: Performed By: #### C BC #### [facility] [address] [address] [address] Kamaljit Browning Urea nitrogen [Mass/Vol] 20.0 mg/dL Critically high 7.0-18.0 [facility] Comment on above: Performed By: #### C BC #### [facility] [address] [address] [address] Kamaljit Browning Urea nitrogen/Creatinine [Mass ratio] 15.6 mg/mg Normal [facility] Comment on above: Performed By: #### C BC #### [facility] [address] [place] [address] Dr. Kamaljit Browning METANEPHRINES PLASMA FREEon 01-18-2022 Metanephrine, Pl 46.2 pg/mL Normal 0.0-88.0 [facility] Comment on above: Performed By: #### C MP, BNP #### [facility] [address] [place] [address] Dr. Kamaljit Browning Normetanephrine, Pl 33.2 pg/mL Normal 0.0-285.2 [facility] Comment on above: Performed By: #### C MP, BNP #### [facility] [address] [place] [address] Dr. Kamaljit Browning ALDOSTERONE: RENIN RATIOon 0 01-08-2022 Aldos/Renin Ratio UPTCAL Normal [facility] Comment on above: Result Comment: Unab le to calculate result since non-numeric result obtained for component test. Units: ng/dL per ng/mL/hr Performed By: #### A LDOREN #### [facility] [address] [place] [address] Dr. Kamaljit Browning Aldosterone <1.0 Normal 0.0-30.0 [facility] Comment on above: Performed By: #### A LDOREN #### [facility] [address] [place] [address] Dr. Kamaljit Browning Renin Activity, Plasma <0.167 Critically low 0.167-5.380 [facility] Comment on above: Performed By: #### A LDOREN #### [facility] [address] [place] [address] Dr. Kamaljit Browning CATECHOLAMINES FRAC, PLASMAo n 12-31-2021 Dopamine, Pl <30 Normal 0-48 [facility] Comment on above: Performed By: #### C MP, BNP #### [facility] [address] [place] [address] Dr. Kamaljit Browning Epinephrine, Pl 58 pg/mL Normal 0-62 [facility] Comment on above: Performed By: #### C MP, BNP #### [facility] [address] [place] [address] Dr. Kamaljit Browning Norepinephrine, Pl 246 pg/mL Normal 0-874 [facility] Comment on above: Performed By: #### C MP, BNP #### [facility] [address] [place] [address] Dr. Kamaljit Browning BNPon 12-26-2021 Natriuretic peptide B (Bld) [Mass/Vol] 126.0 pg/mL Normal <=900.0 [facility] Comment on above: Performed By: #### C MP, BNP #### [facility] [address] [place] [address] Dr. Kamaljit Browning CBC AUTO DIFFon 12-26-2021 BASO # 0.1 103/ul Normal 0.0-0.1 [facility] Comment on above: Performed By: #### C BC #### [facility] [address] [place] [address] Dr. Kamaljit Browning Basophils/100 WBC (Bld) 0.9 % Normal 0.2-2.0 [facility] Comment on above: Performed By: #### C BC #### [facility] [address] [place] [address] Dr. Kamaljit Browning EO # 0.1 103/ul Normal 0.0-0.7 [facility] Comment on above: Performed By: #### C BC #### [facility] [address] [place] [address] Dr. Kamaljit Browning Eosinophils/100 WBC (Bld) 1.0 % Normal 0.9-7.0 [facility] Comment on above: Performed By: #### C BC #### [facility] [address] [place] [address] Dr. Kamaljit Browning Erythrocyte distribution width (RBC) [Ratio] 12.1 % Normal 11.0-15.0 [facility] Comment on above: Performed By: #### C BC #### [facility] [address] [place] [address] Dr. Kamaljit Browning Hematocrit (Bld) [Volume fraction] 39.2 % Critically low 42.0-54.0 [facility] Comment on above: Performed By: #### C BC #### [facility] [address] [address] [address] Kamaljit Browning Hemoglobin (Bld) [Mass/Vol] 13.2 g/dL Critically low 14.0-18.0 [facility] Comment on above: Performed By: #### C BC #### [facility] [address] [address] [address] Kamaljit Browning IG # 0.01 10e3/ul Normal 0.00-0.03 [facility] Comment on above: Performed By: #### C BC #### [facility] [address] [place] [address] Dr. Kamaljit Browning IG % 0.2 % Normal 0.0-0.5 [facility] Comment on above: Performed By: #### C BC #### [facility] [address] [place] [address] Dr. Kamaljit Browning LYMPH # 1.1 103/ul Critically low 1.2-3.8 [facility] Comment on above: Performed By: #### C BC #### [facility] [address] [place] [address] Dr. Kamaljit Browning Lymphocytes/100 WBC (Bld) 18.5 % Critically low 20.5-60.0 [facility] Comment on above: Performed By: #### C BC #### [facility] [address] [place] [address] Dr. Kamaljit Browning MANUAL DIFF REQ NO Normal [facility] Comment on above: Performed By: #### C BC #### [facility] [address] [place] [address] Dr. Kamaljit Browning MCH (RBC) [Entitic mass] 30.5 pg Normal 25.9-34.0 [facility] Comment on above: Performed By: #### C BC #### [facility] [address] [place] [address] Dr. Kamaljit Browning MCHC (RBC) [Mass/Vol] 33.7 g/dL Normal 29.9-35.2 [facility] Comment on above: Performed By: #### C BC #### [facility] [address] [place] [address] Dr. Kamaljit Browning MCV (RBC) [Entitic vol] 90.5 fL Normal 80.0-94.0 [facility] Comment on above: Performed By: #### C BC #### [facility] [address] [place] [address] Dr. Kamaljit Browning MONO # 0.4 103/ul Normal 0.3-0.8 [facility] Comment on above: Performed By: #### C BC #### [facility] [address] [place] [address] Dr. Kamaljit Browning Monocytes/100 WBC (Bld) 7.7 % Normal 1.7-12.0 [facility] Comment on above: Performed By: #### C BC #### [facility] [address] [place] [address] Dr. Kamaljit Browning NEUT # 4.1 103/ul Normal 1.4-6.5 [facility] Comment on above: Performed By: #### C BC #### [facility] [address] [place] [address] Dr. Kamaljit Browning Neutrophils/100 WBC (Bld) 71.7 % Normal 43.0-75.0 [facility] Comment on above: Performed By: #### C BC #### [facility] [address] [place] [address] Dr. Kamaljit Browning Platelet mean volume (Bld) [Entitic vol] 12.9 fL Normal 9.5-13.5 [facility] Comment on above: Performed By: #### C BC #### [facility] [address] [place] [address] Dr. Kamaljit Browning PLT 129 103/ul Critically low 150-450 [facility] Comment on above: Performed By: #### C BC #### [facility] [address] [place], [place] [id number] Dr. Kamaljit Browning RBC 4.33 106/ul Critically low 4.70-6.10 [facility] Comment on above: Performed By: #### C BC #### [facility] [address] [place] [address] Dr. Kamaljit Browning WBC 5.7 103/ul Normal 4.0-11.0 [facility] Comment on above: Performed By: #### C BC #### [facility] [address] [place] [address] Dr. Kamaljit Browning PROF 14(COMP METB)on 022 Albumin [Mass/Vol] 3.9 g/dL Normal 3.4-5.[address] [facility] Comment on above: Performed By: #### C MP, BNP #### [facility] [address] [place] [address] Dr. Kamaljit Browning Albumin/Globulin [Mass ratio] 1.2 {ratio} Normal [facility] Comment on above: Performed By: #### C MP, BNP #### [facility] [address] [place] [address] Dr. Kamaljit Browning ALP [Catalytic activity/Vol] 83 U/L Normal 46-116 [facility] Comment on above: Performed By: #### C MP, BNP #### [facility] [address] [place] [address] Dr. Kamaljit Browning ALT [Catalytic activity/Vol] 30 U/L Normal 16-63 [facility] Comment on above: Performed By: #### C MP, BNP #### [facility] [address] [place] [address] Dr. Kamaljit Browning Anion gap [Moles/Vol] 12.6 mmol/L Normal [facility] Comment on above: Performed By: #### C MP, BNP #### [facility] [address] [place] [address] Dr. Kamaljit Browning AST [Catalytic activity/Vol] 28 U/L Normal 15-37 [facility] Comment on above: Performed By: #### C MP, BNP #### [facility] [address] [place] [address] Dr. Kamaljit Browning Bilirubin [Mass/Vol] 0.6 mg/dL Normal 0.2-1.0 [facility] Comment on above: Performed By: #### C MP, BNP #### [facility] [address] [place] [address] Dr. Kamaljit Browning Calcium [Mass/Vol] 8.9 mg/dL Normal 8.5-10.[address] [facility] Comment on above: Performed By: #### C MP, BNP #### [facility] [address] [place] [address] Dr. Kamaljit Browning Chloride [Moles/Vol] 107 mmol/L Normal 98-107 [facility] Comment on above: Performed By: #### C MP, BNP #### [facility] [address] [place] [address] Dr. Kamaljit Browning CO2 [Moles/Vol] 26.4 mmol/L Normal 21.0-32.0 [facility] Comment on above: Performed By: #### C MP, BNP #### [facility] [facility] [address] [place] [address] Dr. Kamaljit Browning Creatinine [Mass/Vol] 1.11 mg/dL Normal 0.70-1.30 [facility] Comment on above: Performed By: #### C MP, BNP #### [facility] [address] [place] [address] Dr. Kamaljit Browning EGFR-AF SLOVAK >60 Normal >=60 [facility] Comment on above: Performed By: #### C MP, BNP #### [facility] [address] [place] [address] Dr. Kamaljit Browning EGFR-NON AF SLOVAK >60 Normal >=60 [facility] Comment on above: Performed By: #### C MP, BNP #### [facility] [address] [place] [address] Dr. Kamaljit Browning Globulin (S) [Mass/Vol] 3.2 g/dL Normal [facility] Comment on above: Performed By: #### C MP, BNP #### [facility] [address] [place] [address] Dr. Kamaljit Browning Glucose [Mass/Vol] 112 mg/dL Critically high 74-106 [facility] Comment on above: Performed By: #### C MP, BNP #### [facility] [address] [place] [address] Dr. Kamaljit Browning Potassium [Moles/Vol] 4.0 mmol/L Normal 3.5-5.1 [facility] Comment on above: Performed By: #### C MP, BNP #### [facility] [address] [place] [address] Dr. Kamaljit Browning Protein [Mass/Vol] 7.1 g/dL Normal 6.4-8.2 [facility] Comment on above: Performed By: #### C MP, BNP #### [facility] [address] [place] [address] Dr. Kamaljit Browning Sodium [Moles/Vol] 142 mmol/L Normal 136-145 [facility] Comment on above: Performed By: #### C MP, BNP #### [facility] [address] [place] [address] Dr. Kamaljit Browning Urea nitrogen [Mass/Vol] 15.0 mg/dL Normal 7.0-18.0 [facility] Comment on above: Performed By: #### C MP, BNP #### [facility] [address] [place] [address] Dr. Kamaljit Browning Urea nitrogen/Creatinine [Mass ratio] 13.5 mg/mg Normal [facility] Comment on above: Performed By: #### C MP, BNP #### [facility] [address] [place] [address] Dr. Kamaljit Browning PROTIMEon 12-26-2021 INR Coag (PPP) [Relative time] 3.98 {INR} Normal [facility] Comment on above: Performed By: #### A 1C #### [facility] [address] [place] [address] Dr. Kamaljit Browning INR GUIDELINES SEE BELOW Normal [facility] Comment on above: Result Comment: NILDA RED INR: 2.0 - 3.0 CONDITIONS NOT LISTED BELOW 2.5 - 3.5 FOR PROSTHETIC HEART VALVE REPLACEMENT 2.5 - 3.5 RECURRENT THROMBOSIS Performed By: #### A 1C #### [facility] [address] [place] [address] Dr. Kamaljit Browning PT Coag (PPP) [Time] 39.3 s Critically high 9.0-11.6 [facility] Comment on above: Performed By: #### A 1C #### [facility] [address] [address] [address] Kamaljit Browning T3, TOTAL (TRIIODOTHYRONINE) on 12-26-2021 T3, TOTAL 67 ng/dL Critically low 71-180 [facility] Comment on above: Performed By: #### C BC #### [facility] [address] [address] [address] Kamaljit Browning US VASCULAR ORG CMPLon 12-26 US VASCULAR ORG CMPL EXAMINATION: US KIDNEYS, US VASCULAR ORG CMPL, Doppler HISTORY: Hypertensive disorder COMPARISON: No relevant comparison available. TECHNIQUE: Ultrasound examination was performed of the bladder. FINDINGS: Right Kidney: Normal in size, contour and echotexture. No solid cortical mass, hydronephrosis or obstructing nephrolithiasis. The cortex measures 1.8 cm. 4 mm cortical echogenic focus, calcification Height: 5.2 cm Length: 10.7 cm Width: 6.0 cm Left Kidney: Normal in size, contour and echotexture. No solid cortical mass, hydronephrosis or obstructing nephrolithiasis. The cortex measures 1.9 cm Height: 5.8 cm Length: 11.7 cm Width: 4.7 cm The urinary bladder is normal in appearance measuring 8.3 x 7.6 x 4.8 cm a volume of 210 mL. Aorta: Peak systolic 107 cm/s Right renal artery: Proximal: 167 cm/s Mid: 134 cm/s Distal: 150 cm/s Left renal artery: Proximal: 160 cm/s Mid: 162 cm/s Distal: 143 cm/s IMPRESSION: No focal renal mass or hydronephrosis Renal arteries flow velocities and renal artery to aortic ratio are normal. Findings are not consistent with renovascular hypertension Electronically authenticated by: LISBET BRANCH Date: 2021-12-26 09:34 Normal [facility] BNPon 12-25-2021 Natriuretic peptide B (Bld) [Mass/Vol] 106.0 pg/mL Normal <=900.0 [facility] Comment on above: Performed By: #### C MP, BNP #### [facility] [address] [address] [address] Kamaljit Browning CARDIAC GABRIELLA 3-6on 2 CK [Catalytic activity/Vol] 98 U/L Normal 39-308 [facility] Comment on above: Performed By: #### C MP, BNP #### [facility] [address] [place] [address] Dr. Kamaljit Browning CK [Catalytic activity/Vol] 92 U/L Normal 39-308 [facility] Comment on above: Performed By: #### C MP, BNP #### [facility] [address] [place] [address] Dr. Kamaljit Browning CK.MB [Mass/Vol] 1.25 ng/mL Normal <=3.60 [facility] Comment on above: Performed By: #### C MP, BNP #### [facility] [address] [place] [address] Dr. Kamaljit Browning CK.MB [Mass/Vol] 1.08 ng/mL Normal <=3.60 [facility] Comment on above: Performed By: #### C MP, BNP #### [facility] [address] [place] [address] Dr. Kamaljit Browning HSTROP 23.6 pg/mL Normal 4.0-76.1 [facility] Comment on above: Result Comment: CUT- OFF POINTS HAVE BEEN ESTABLISHED BASED ON THE FOURTH UNIVERSAL DEFINITIONS OF MYOCARDIAL INFARCTION. THE UPPER REFERENCE LIMIT (URL) OF TROPONIN, DEFINED THE 99TH PERCENTILE OF cTnI DISTRIBUTION IN A REFERENCE POPULATION, HAS BEEN CONFIRMED THE DECISION THRESHOLD FOR PR DIAGNOSIS. Performed By: #### C MP, BNP #### [facility] [address] [place] [address] Dr. Kamaljit Browning HSTROP 21.7 pg/mL Normal 4.0-76.1 [facility] Comment on above: Result Comment: CUT- OFF POINTS HAVE BEEN ESTABLISHED BASED ON THE FOURTH UNIVERSAL DEFINITIONS OF MYOCARDIAL INFARCTION. THE UPPER REFERENCE LIMIT (URL) OF TROPONIN, DEFINED THE 99TH PERCENTILE OF cTnI DISTRIBUTION IN A REFERENCE POPULATION, HAS BEEN CONFIRMED THE DECISION THRESHOLD FOR PR DIAGNOSIS. Performed By: #### C MP, BNP #### [facility] [address] [place] [address] Dr. Kamaljit Browning CARDIAC GABRIELLA ADMITon 022 CK [Catalytic activity/Vol] 105 U/L Normal 39-308 [facility] Comment on above: Performed By: #### C MP, BNP #### [facility] [address] [place] [address] Dr. Kamaljit Browning CK.MB [Mass/Vol] 0.99 ng/mL Normal <=3.60 [facility] Comment on above: Performed By: #### C MP, BNP #### [facility] [address] [place] [address] Dr. Kamaljit Browning HSTROP 24.9 pg/mL Normal 4.0-76.1 [facility] Comment on above: Result Comment: CUT- OFF POINTS HAVE BEEN ESTABLISHED BASED ON THE FOURTH UNIVERSAL DEFINITIONS OF MYOCARDIAL INFARCTION. THE UPPER REFERENCE LIMIT (URL) OF TROPONIN, DEFINED THE 99TH PERCENTILE OF cTnI DISTRIBUTION IN A REFERENCE POPULATION, HAS BEEN CONFIRMED THE DECISION THRESHOLD FOR PR DIAGNOSIS. Performed By: #### C MP, BNP #### [facility] [address] [place] [address] Dr. Kamaljit Browning SANDI 51 ng/mL Normal 16-96 [facility] Comment on above: Performed By: #### C MP, BNP #### [facility] [address] [place] [address] Dr. Kamaljit Browning CBC AUTO DIFFon 12-25-2021 BASO # 0.1 103/ul Normal 0.0-0.1 [facility] Comment on above: Performed By: #### C BC #### [facility] [address] [place] [address] Dr. Kamaljit Browning Basophils/100 WBC (Bld) 0.8 % Normal 0.2-2.0 [facility] Comment on above: Performed By: #### C BC #### [facility] [address] [place] [address] Dr. Kamaljit Browning EO # 0.1 103/ul Normal 0.0-0.7 [facility] Comment on above: Performed By: #### C BC #### [facility] [address] [place] [address] Dr. Kamaljit Browning Eosinophils/100 WBC (Bld) 1.0 % Normal 0.9-7.0 [facility] Comment on above: Performed By: #### C BC #### [facility] [address] [place] [address] Dr. Kamaljit Browning Erythrocyte distribution width (RBC) [Ratio] 12.1 % Normal 11.0-15.0 [facility] Comment on above: Performed By: #### C BC #### [facility] [address] [place] [address] Dr. Kamaljit Browning Hematocrit (Bld) [Volume fraction] 42.2 % Normal 42.0-54.0 [facility] Comment on above: Performed By: #### C BC #### [facility] [address] [place] [address] Dr. Kamaljit Browning Hemoglobin (Bld) [Mass/Vol] 14.2 g/dL Normal 14.0-18.0 [facility] Comment on above: Performed By: #### C BC #### [facility] [address] [place] [address] Dr. Kamaljit Browning IG # 0.02 10e3/ul Normal 0.00-0.03 [facility] Comment on above: Performed By: #### C BC #### [facility] [address] [place] [address] Dr. Kamaljit Browning IG % 0.3 % Normal 0.0-0.5 [facility] Comment on above: Performed By: #### C BC #### [facility] [address] [place] [address] Dr. Kamaljit Browning LYMPH # 0.9 103/ul Critically low 1.2-3.8 [facility] Comment on above: Performed By: #### C BC #### [facility] [address] [place] [address] Dr. Kamaljit Browning Lymphocytes/100 WBC (Bld) 14.7 % Critically low 20.5-60.0 [facility] Comment on above: Performed By: #### C BC #### [facility] [address] [place] [address] Dr. Kamaljit Browning MANUAL DIFF REQ NO Normal [facility] Comment on above: Performed By: #### C BC #### [facility] [address] [address] [address] Kamaljit Browning MCH (RBC) [Entitic mass] 30.4 pg Normal 25.9-34.0 [facility] Comment on above: Performed By: #### C BC #### [facility] [address] [address] [address] Kamaljit Browning MCHC (RBC) [Mass/Vol] 33.6 g/dL Normal 29.9-35.2 [facility] Comment on above: Performed By: #### C BC #### [facility] [address] [address] [address] Kamaljit Browning MCV (RBC) [Entitic vol] 90.4 fL Normal 80.0-94.0 [facility] Comment on above: Performed By: #### C BC #### [facility] [address] [place] [address] Dr. Kamlajit Browning MONO # 0.4 103/ul Normal 0.3-0.8 [facility] Comment on above: Performed By: #### C BC #### [facility] [address] [place] [address] Dr. Kamaljit Browning Monocytes/100 WBC (Bld) 6.5 % Normal 1.7-12.0 [facility] Comment on above: Performed By: #### C BC #### [facility] [address] [place] [address] Dr. Kamaljit Browning NEUT # 4.6 103/ul Normal 1.4-6.5 [facility] Comment on above: Performed By: #### C BC #### [facility] [address] [place] [address] Dr. Kamaljit Browning Neutrophils/100 WBC (Bld) 76.7 % Critically high 43.0-75.0 [facility] Comment on above: Performed By: #### C BC #### [facility] [address] [place] [address] Dr. Kamaljit Browning Platelet mean volume (Bld) [Entitic vol] 12.2 fL Normal 9.5-13.5 [facility] Comment on above: Performed By: #### C BC #### [facility] [address] [address] [address] Kamaljit Browning PLT 120 103/ul Critically low 150-450 [facility] Comment on above: Performed By: #### C BC #### [facility] [address] [address] [address] Kamaljit Browning RBC 4.67 106/ul Critically low 4.70-6.10 [facility] Comment on above: Performed By: #### C BC #### [facility] [address] [address] [address] Kamaljit Browning WBC 6.0 103/ul Normal 4.0-11.0 [facility] Comment on above: Performed By: #### C BC #### [facility] [address] [place] [address] Dr. Kamaljit Browning CULTURE URINEon 12-25-2021 CULTURE URINE Culture Observations : NO GROWTH. Normal [facility] Comment on above: Performed By: #### C MP, BNP #### [facility] [address] [address] [address] Kamaljit Browning Covid-19 PCR ([facility])on 11-28 SARS-CoV-2 (COVID-19) RNA SOURAV+probe Ql (Unsp spec) Not detected Normal NOT DETECTED [facility] Comment on above: Result Comment: When diagnostic testing is negative, the possibility of a false negative should be considered in the context of a patient's recent exposures and the presence of clinical signs and symptoms consistent with SARS-CoV-2. This test is not yet approved or cleared by the [place] FDA. When there are no FDA-approved or cleared tests available, and other criteria are met, FDA can make tests available under an emergency access mechanism called an Emergency Use Authorization (EUA). The EUA for this test is supported by the Global Regulatory Affairs Manager of Health and Human Service's declaration that circumstances exist to justify the emergency use of in vitro diagnostics for the detection and/or diagnosis of the virus that causes COVID-19. This EUA will remain in effect for the duration of the COVID-19 declaration justifying emergency of IVDs, unless it is terminated or revoked by the FDA (after which the test may no longer be used). Performed By: #### C #### [facility] [address] [place] [address] Dr. Kamaljit Browning ECHOCARDIO M/2D COMPLETEon 0 12-25-2021 ECHOCARDIO M/2D COMPLETE Patient: MARTIN WEST Exam Date: 12/25/2021 : 1950 Gender:M Ordering : DR PETRA WOOTEN . Admission #: [id number] Family : DR ALAYNA LANGLEY M.D. Order #: [id number] CLICK HERE TO VIEW EXAM ECHOCARDIOGRAM REPORT PROCEDURE: CARDIO PULMONARY ECHOCARDIO M/2D COMP INDICATIONS: Hypertensive urgency COMPARISON: None. DESCRIPTION: COMPLETE ECHOCARDIOGRAM Real-time transthoracic echocardiography with 2D, M-mode, spectral and color flow Doppler performed. QUALITY: Technical quality was good. LEFT VENTRICLE: Normal chamber size. Mild concentric left ventricular hypertrophy. Global left ventricular systolic function is normal. LV EF: Calculated left ventricular ejection fraction is 63% DIASTOLIC: Grade II diastolic dysfunction. ATRIAL SEPTUM: LEFT ATRIUM: Normal chamber size. RIGHT ATRIUM: Mild dilatation. RIGHT VENTRICLE: Normal chamber size. Normal right ventricular systolic function. TRICUSPID VALVE: Normal mobility and thickness. No stenosis with trivial regurgitation. Mild pulmonary hypertension. RVSP 39 mmHg MITRAL VALVE: Normal mobility and thickness. No mitral valve prolapse. No evidence of mitral valve stenosis. Mild mitral annular calcification. Trivial mitral regurgitation. AORTIC VALVE: Mechanical valve with abnormal flow. Aortic valve area 0.85 cm?, DVI 0.27. Peak velocity 3.2 cm/s, peak gradient 41 mmHg. No perivalvular regurgitation. No aortic regurgitation. The findings are consistent with possible patient prosthesis mismatch. AORTIC ROOT: Normal diameter and appearance. PULMONIC VALVE: Normal thickness and mobility. No stenosis. Trivial regurgitation. PERICARDIUM: No evidence of pericardial effusion. IVC: Collapses with inspirations. Normal size. PLEURA: CONCLUSION: 1. Mild concentric left ventricular hypertrophy. 2. Normal left ventricular systolic function. LV ejection fraction is 65%. 3. Grade 2 diastolic dysfunction. 4. Normal right ventricular size and function. 5. Mechanical aortic valve with elevated Doppler flows suggestive of possible patient prosthesis mismatch. 6. Mildly elevated right-sided pressures. 7. No pericardial effusion. Adult Echocardiography Procedure Report Left Ventricle LVEDD (3.7 - 5.6 cm): 5.13 cm LVESD (2.2 - 4.0 cm): 2.78 cm LVIVS thickness (0.6 - 1.2 cm): 1.25 cm LVPW thickness (0.5 - 1.0 cm): 1.23 cm e': 7.02 cm/s E - e': 17.70 LVOT Area (cm2): 3.14 cm2 LVOT Diameter 2.00 cm Left Ventricular Ejection Fraction: 65 % Left Atrium LA Volume Index (2D A2C): 28.40 ml/m2 Left Atrium Systolic Dimension: 3.80 cm Left Atrium Systolic Area(A2C): 22.00 cm2 Left Atrium Systolic Area(A4C): 22.50 cm2 Left Atrium Systolic Volume(A2C): 73547 mm3 Left Atrium Systolic Volume(A4C): 23464 mm3 Mitral Valve MV E to A Ratio: 1 Deceleration Clay: 5860 mm/s2 Mitral Valve A-Wave Peak Velocity: 122.00 cm/s Mitral Valve E-Wave Peak Velocity: 124.00 cm/s Right Ventricle RV Internal Diastolic Dimension: 4.02 cm Aorta AO Root Diam: 2.00 cm Aortic Valve Peak Velocity (Antegrade Flow): 261.00 cm/s, 272.00 cm/s AoV Area (Peak Bubba): 1.01 cm2 AoV Area (VTI): 1.19 cm2 Peak Velocity(Antegrade Flow): 274.00 cm/s Peak Gradient(Antegrade Flow): 30 mm[Hg] Mean Velocity(Antegrade Flow): 174.00 cm/s Mean Gradient(Antegrade Flow): 14 mm[Hg], 14 mm[Hg] Velocity Time Integral: 63.20 cm Tricuspid Valve Peak Velocity (Regurgitant Flow): 267.00 cm/s, 273.00 cm/s Pulmonic Valve Peak Velocity: 114.00 cm/s Peak Gradient: 5 mm[Hg] Right Atrium Dictated by: Jeremy Reddy M.D. on 12/25/2021 at 16:36 Approved by: Jeremy Reddy M.D. on 12/25/2021 at 16:48 Normal [facility] MAGNESIUMon 12-25-2021 Magnesium [Mass/Vol] 2.2 mg/dL Normal 1.8-2.4 [facility] Comment on above: Performed By: #### C MP, BNP #### [facility] [address] [place] [address] Dr. Kamaljit Browning PHOSPHORUSon 12-25-2021 Phosphate [Mass/Vol] 3.2 mg/dL Normal 2.6-4.7 [facility] Comment on above: Performed By: #### C MP, BNP #### [facility] [address] [place] [address] Dr. Kamaljit Browning PROF 14(COMP METB)on 022 Albumin [Mass/Vol] 4.4 g/dL Normal 3.4-5.[address] [facility] Comment on above: Performed By: #### C MP, BNP #### [facility] [address] [place] [address] Dr. Kamaljit Browning Albumin/Globulin [Mass ratio] 1.2 {ratio} Normal [facility] Comment on above: Performed By: #### C MP, BNP #### [facility] [address] [place] [address] Dr. Kamaljit Browning ALP [Catalytic activity/Vol] 95 U/L Normal 46-116 [facility] Comment on above: Performed By: #### C MP, BNP #### [facility] [address] [place] [address] Dr. Kamaljit Browning ALT [Catalytic activity/Vol] 30 U/L Normal 16-63 [facility] Comment on above: Performed By: #### C MP, BNP #### [facility] [address] [place] [address] Dr. Kamaljit Browning Anion gap [Moles/Vol] 12.0 mmol/L Normal [facility] Comment on above: Performed By: #### C MP, BNP #### [facility] [address] [place] [address] Dr. Kamaljit Browning AST [Catalytic activity/Vol] 27 U/L Normal 15-37 [facility] Comment on above: Performed By: #### C MP, BNP #### [facility] [address] [place] [address] Dr. Kamaljit Browning Bilirubin [Mass/Vol] 0.8 mg/dL Normal 0.2-1.0 [facility] Comment on above: Performed By: #### C MP, BNP #### [facility] [address] [place] [address] Dr. Kamaljit Browning Calcium [Mass/Vol] 9.1 mg/dL Normal 8.5-10.[address] [facility] Comment on above: Performed By: #### C MP, BNP #### [facility] [address] [place] [address] Dr. Kamaljit Browning Chloride [Moles/Vol] 107 mmol/L Normal 98-107 [facility] Comment on above: Performed By: #### C MP, BNP #### [facility] [address] [place] [address] Dr. Kamaljit Browning CO2 [Moles/Vol] 27.6 mmol/L Normal 21.0-32.0 [facility] Comment on above: Performed By: #### C MP, BNP #### [facility] [address] [place] [address] Dr. Kamaljit Browning Creatinine [Mass/Vol] 1.01 mg/dL Normal 0.70-1.30 [facility] Comment on above: Performed By: #### C MP, BNP #### [facility] [address] [place] [address] Dr. Kamaljit Browning EGFR-AF SLOVAK >60 Normal >=60 [facility] Comment on above: Performed By: #### C MP, BNP #### [facility] [address] [place] [address] Dr. Kamaljit Browning EGFR-NON AF SLOVAK >60 Normal >=60 [facility] Comment on above: Performed By: #### C MP, BNP #### [facility] [address] [place] [address] Dr. Kamaljit Browning Globulin (S) [Mass/Vol] 3.6 g/dL Normal [facility] Comment on above: Performed By: #### C MP, BNP #### [facility] [address] [place] [address] Dr. Kamaljit Browning Glucose [Mass/Vol] 123 mg/dL Critically high 74-106 [facility] Comment on above: Performed By: #### C MP, BNP #### [facility] [address] [address] [address] Kamaljit Browning Potassium [Moles/Vol] 4.6 mmol/L Normal 3.5-5.1 [facility] Comment on above: Performed By: #### C MP, BNP #### [facility] [address] [place] [address] Dr. Kamaljit Browning Protein [Mass/Vol] 8.0 g/dL Normal 6.4-8.2 [facility] Comment on above: Performed By: #### C MP, BNP #### [facility] [address] [place] [address] Dr. Kamaljit Browning Sodium [Moles/Vol] 142 mmol/L Normal 136-[address] [facility] Comment on above: Performed By: #### C MP, BNP #### [facility] [address] [place] [address] Dr. Kamaljit Browning Urea nitrogen [Mass/Vol] 12.0 mg/dL Normal 7.0-18.0 [facility] Comment on above: Performed By: #### C MP, BNP #### [facility] [address] [place] [address] Dr. Kamaljit Browning Urea nitrogen/Creatinine [Mass ratio] 11.9 mg/mg Normal [facility] Comment on above: Performed By: #### C MP, BNP #### [facility] [address] [place] [address] Dr. Kamaljit Browning PROTIMEon 12-25-2021 INR Coag (PPP) [Relative time] 3.75 {INR} Normal [facility] Comment on above: Performed By: #### P T, PTT #### [facility] [address] [place] [address] Dr. Kamaljit Browning INR GUIDELINES SEE BELOW Normal [facility] Comment on above: Result Comment: NILDA RED INR: 2.0 - 3.0 CONDITIONS NOT LISTED BELOW 2.5 - 3.5 FOR PROSTHETIC HEART VALVE REPLACEMENT 2.5 - 3.5 RECURRENT THROMBOSIS Performed By: #### P T, PTT #### [facility] [address] [place] [address] Dr. Kamaljit Browning PT Coag (PPP) [Time] 37.1 s Critically high 9.0-11.6 [facility] Comment on above: Performed By: #### P T, PTT #### [facility] [address] [place] [address] Dr. Kamaljit Browning PTTon 12-25-2021 aPTT Coag (Bld) [Time] 55.4 s Critically high 22.3-36.2 [facility] Comment on above: Performed By: #### P T, PTT #### [facility] [address] [place] [address] Dr. Kamaljit Browning T4on 12-25-2021 T4 [Mass/Vol] 8.90 ug/dL Normal 4.50-12.10 [facility] Comment on above: Performed By: #### C MP, BNP #### [facility] [facility] [address] [place] [address] Dr. Kamaljit Browning TSHon 12-25-2021 TSH 0.778 uIU/mL Normal 0.358-3.740 [facility] Comment on above: Performed By: #### C MP, BNP #### [facility] [address] [place] [address] Dr. Kamaljit Browning UA RANDOM W/MICROSCOPICon BACTERIA NONE SEEN Normal NONE SEEN [facility] Comment on above: Performed By: #### A 1C #### [facility] [address] [place] [address] Dr. Kamaljit Browning Bilirubin Ql (U) Negative Normal NEGATIVE [facility] Comment on above: Performed By: #### A 1C #### [facility] [address] [place] [address] Dr. Kamaljit Browning CAST NONE SEEN Normal NONE SEEN [facility] Comment on above: Performed By: #### A 1C #### [facility] [address] [place] [address] Dr. Kamaljit Browning Clarity (U) CLEAR Normal CLEAR [facility] Comment on above: Performed By: #### A 1C #### [facility] [address] [place] [address] Dr. Kamaljit Browning Color (U) LT. YELLOW Normal YELLOW [facility] Comment on above: Performed By: #### A 1C #### [facility] [address] [place] [address] Dr. Kamaljit Browning Crystals LM Nom (Urine sed) NONE SEEN Normal NONE SEEN [facility] Comment on above: Performed By: #### A 1C #### [facility] [address] [place] [address] Dr. Kamaljit Browning Epithelial cells LM Ql (Urine sed) NONE SEEN Normal NONE SEEN /RARE [facility] Comment on above: Performed By: #### A 1C #### [facility] [address] [place] [address] Dr. Kamaljit Browning Glucose Ql (U) Negative Normal NEGATIVE [facility] Comment on above: Performed By: #### A 1C #### [facility] [address] [place] [address] Dr. Kamaljit Browning Hemoglobin Ql (U) Negative Normal NEGATIVE [facility] Comment on above: Performed By: #### A 1C #### [facility] [address] [place] [address] Dr. Kamaljit Browning Ketones Ql (U) Negative Normal NEGATIVE [facility] Comment on above: Performed By: #### A 1C #### [facility] [address] [place] [address] Dr. Kamaljit Browning LEUKOCYTES Negative Normal NEGATIVE [facility] Comment on above: Performed By: #### A 1C #### [facility] [address] [place] [address] Dr. Kamaljit Browning MUCOUS NONE SEEN Normal NONE SEEN [facility] Comment on above: Performed By: #### A 1C #### [facility] [address] [place] [address] Dr. Kamaljit Browning Nitrite Ql (U) Negative Normal NEGATIVE [facility] Comment on above: Performed By: #### A 1C #### [facility] [address] [place] [address] Dr. Kamaljit Browning pH (U) 6.0 [pH] Normal 5-9 [facility] Comment on above: Performed By: #### A 1C #### [facility] [address] [place] [address] Dr. Kamaljit Browning RBC NONE SEEN Abnormal 0-2 [facility] Comment on above: Performed By: #### A 1C #### [facility] [address] [place] [address] Dr. Kamaljit Browning SPEC GRAVITY 1.010 Normal 1.005-<=1.025 [facility] Comment on above: Performed By: #### A 1C #### [facility] [address] [place] [address] Dr. Kamaljit Browning UA PROTEIN Negative Normal NEGATIVE/ TRACE [facility] Comment on above: Performed By: #### A 1C #### [facility] [address] [place] [address] Dr. Kamaljit Browning Urobilinogen Qn (U) 0.2 {Mari'U}/dL Normal 0.2 - 1. 0 [facility] Comment on above: Performed By: #### A 1C #### [facility] [address] [place] [address] Dr. Kamaljit Browning WBC NONE SEEN Normal NONE SEEN [facility] Comment on above: Performed By: #### A 1C #### [facility] [address] [place] [address] Dr. Kamaljit Browning CBC AUTO DIFFon 12-18-2021 BASO # 0.0 103/ul Normal 0.0-0.1 [facility] Comment on above: Performed By: #### C BC #### [facility] [address] [place] [address] Dr. Kamaljit Browning Basophils/100 WBC (Bld) 0.6 % Normal 0.2-2.0 [facility] Comment on above: Performed By: #### C BC #### [facility] [address] [place] [address] Dr. Kamaljit Browning EO # 0.1 103/ul Normal 0.0-0.7 [facility] Comment on above: Performed By: #### C BC #### [facility] [address] [place] [address] Dr. Kamaljit Browning Eosinophils/100 WBC (Bld) 1.1 % Normal 0.9-7.0 [facility] Comment on above: Performed By: #### C BC #### [facility] [address] [place] [address] Dr. Kamaljit Browning Erythrocyte distribution width (RBC) [Ratio] 12.5 % Normal 11.0-15.0 [facility] Comment on above: Performed By: #### C BC #### [facility] [address] [place] [address] Dr. Kamaljit Browning Hematocrit (Bld) [Volume fraction] 40.5 % Critically low 42.0-54.0 [facility] Comment on above: Performed By: #### C BC #### [facility] [address] [place] [address] Dr. Kamaljit Browning Hemoglobin (Bld) [Mass/Vol] 13.5 g/dL Critically low 14.0-18.0 [facility] Comment on above: Performed By: #### C BC #### [facility] [address] [place] [address] Dr. Kamaljit Browning IG # 0.02 10e3/ul Normal 0.00-0.03 [facility] Comment on above: Performed By: #### C BC #### [facility] [address] [place] [address] Dr. Kamaljit Browning IG % 0.3 % Normal 0.0-0.5 [facility] Comment on above: Performed By: #### C BC #### [facility] [address] [place] [address] Dr. Kamaljit Browning LYMPH # 1.0 103/ul Critically low 1.2-3.8 [facility] Comment on above: Performed By: #### C BC #### [facility] [address] [place] [address] Dr. Kamaljit Browning Lymphocytes/100 WBC (Bld) 14.8 % Critically low 20.5-60.0 [facility] Comment on above: Performed By: #### C BC #### [facility] [address] [place] [address] Dr. Kamaljit Browning MANUAL DIFF REQ NO Normal [facility] Comment on above: Performed By: #### C BC #### [facility] [address] [place] [address] Dr. Kamaljit Browning MCH (RBC) [Entitic mass] 30.3 pg Normal 25.9-34.0 [facility] Comment on above: Performed By: #### C BC #### [facility] [address] [place] [address] Dr. Kamaljit Browning MCHC (RBC) [Mass/Vol] 33.3 g/dL Normal 29.9-35.2 [facility] Comment on above: Performed By: #### C BC #### [facility] [address] [place] [address] Dr. Kamaljit Browning MCV (RBC) [Entitic vol] 91.0 fL Normal 80.0-94.0 [facility] Comment on above: Performed By: #### C BC #### [facility] [address] [place] [address] Dr. Kamaljit Browning MONO # 0.6 103/ul Normal 0.3-0.8 [facility] Comment on above: Performed By: #### C BC #### [facility] [address] [place] [address] Dr. Kamaljit Browning Monocytes/100 WBC (Bld) 9.0 % Normal 1.7-12.0 [facility] Comment on above: Performed By: #### C BC #### [facility] [address] [place] [address] Dr. Kamaljit Browning NEUT # 5.2 103/ul Normal 1.4-6.5 [facility] Comment on above: Performed By: #### C BC #### [facility] [address] [place] [address] Dr. Kamaljit Browning Neutrophils/100 WBC (Bld) 74.2 % Normal 43.0-75.0 [facility] Comment on above: Performed By: #### C BC #### [facility] [address] [address] [address] Kamaljit Browning Platelet mean volume (Bld) [Entitic vol] 12.7 fL Normal 9.5-13.5 [facility] Comment on above: Performed By: #### C BC #### [facility] [address] [place] [address] Dr. Kamaljit Browning PLT 114 103/ul Critically low 150-450 [facility] Comment on above: Performed By: #### C BC #### [facility] [address] [address] [address] Kamaljit Browning RBC 4.45 106/ul Critically low 4.70-6.10 [facility] Comment on above: Performed By: #### C BC #### [facility] [address] [place] [address] Dr. Kamaljit Browning WBC 7.0 103/ul Normal 4.0-11.0 [facility] Comment on above: Performed By: #### C BC #### [facility] [address] [place] [address] Dr. Kamaljit Browning MAGNESIUMon 12-18-2021 Magnesium [Mass/Vol] 2.1 mg/dL Normal 1.8-2.4 [facility] Comment on above: Performed By: #### C BC #### [facility] [address] [place] [address] Dr. Kamaljit Browning PROF CHEM 8 (BAS METB)on Anion gap [Moles/Vol] 13.2 mmol/L Normal [facility] Comment on above: Performed By: #### C BC #### [facility] [address] [place] [address] Dr. Kamaljit Browning Calcium [Mass/Vol] 8.7 mg/dL Normal 8.5-10.1 [facility] Comment on above: Performed By: #### C BC #### [facility] [address] [place] [address] Dr. Kamaljit Browning Chloride [Moles/Vol] 108 mmol/L Critically high 98-107 [facility] Comment on above: Performed By: #### C BC #### [facility] [address] [address] [address] Kamaljit Browning CO2 [Moles/Vol] 25.7 mmol/L Normal 21.0-32.0 [facility] Comment on above: Performed By: #### C BC #### [facility] [address] [address] [address] Kamaljit Browning Creatinine [Mass/Vol] 1.10 mg/dL Normal 0.70-1.30 [facility] Comment on above: Performed By: #### C BC #### [facility] [address] [address] [address] Kamaljit Browning EGFR-AF SLOVAK >60 Normal >=60 [facility] Comment on above: Performed By: #### C BC #### [facility] [address] [address] [address] Kamaljit Browning EGFR-NON AF SLOVAK >60 Normal >=60 [facility] Comment on above: Performed By: #### C BC #### [facility] [address] [address] [address] Kamaljit Browning Glucose [Mass/Vol] 118 mg/dL Critically high 74-106 [facility] Comment on above: Performed By: #### C BC #### [facility] [address] [address] [address] Kamaljit Browning Potassium [Moles/Vol] 3.9 mmol/L Normal 3.5-5.1 [facility] Comment on above: Performed By: #### C BC #### [facility] [address] [address] [address] Kamaljit Browning Sodium [Moles/Vol] 143 mmol/L Normal 136-[address] [facility] Comment on above: Performed By: #### C BC #### [facility] [address] [address] [address] Kamaljit Browning Urea nitrogen [Mass/Vol] 12.0 mg/dL Normal 7.0-18.0 [facility] Comment on above: Performed By: #### C BC #### [facility] [address] [place] [address] Dr. Kamaljit Browning Urea nitrogen/Creatinine [Mass ratio] 10.9 mg/mg Normal [facility] Comment on above: Performed By: #### C BC #### [facility] [address] [place] [address] Dr. Kamaljit Browning PROTIMEon 12-18-2021 INR Coag (PPP) [Relative time] 2.47 {INR} Normal [facility] Comment on above: Performed By: #### C MP, BNP #### [facility] [address] [place] [address] Dr. Kamaljit Browning INR GUIDELINES SEE BELOW Normal [facility] Comment on above: Result Comment: NILDA RED INR: 2.0 - 3.0 CONDITIONS NOT LISTED BELOW 2.5 - 3.5 FOR PROSTHETIC HEART VALVE REPLACEMENT 2.5 - 3.5 RECURRENT THROMBOSIS Performed By: #### C MP, BNP #### [facility] [address] [place] [address] Dr. Kamaljit Browning PT Coag (PPP) [Time] 25.1 s Critically high 9.0-11.6 [facility] Comment on above: Performed By: #### C MP, BNP #### [facility] [address] [place] [address] Dr. Kamaljit Browning TSHon 12-18-2021 TSH 1.850 uIU/mL Normal 0.358-3.740 [facility] Comment on above: Performed By: #### C BC #### [facility] [address] [place] [address] Dr. Kamaljit Browning BNPon 12-17-2021 Natriuretic peptide B (Bld) [Mass/Vol] 50.0 pg/mL Normal <=900.0 [facility] Comment on above: Performed By: #### A 1C #### [facility] [address] [place] [address] Dr. Kamaljit Browning CBC AUTO DIFFon 12-17-2021 BASO # 0.1 103/ul Normal 0.0-0.1 [facility] Comment on above: Performed By: #### C BC #### [facility] [address] [place] [address] Dr. Kamaljit Browning Basophils/100 WBC (Bld) 1.0 % Normal 0.2-2.0 [facility] Comment on above: Performed By: #### C BC #### [facility] [address] [place] [address] Dr. Kamaljit Browning EO # 0.1 103/ul Normal 0.0-0.7 [facility] Comment on above: Performed By: #### C BC #### [facility] [address] [place] [address] Dr. Kamaljit Browning Eosinophils/100 WBC (Bld) 1.2 % Normal 0.9-7.0 [facility] Comment on above: Performed By: #### C BC #### [facility] [address] [place] [address] Dr. Kamaljit Browning Erythrocyte distribution width (RBC) [Ratio] 12.4 % Normal 11.0-15.0 [facility] Comment on above: Performed By: #### C BC #### [facility] [address] [place] [address] Dr. Kamaljit Browning Hematocrit (Bld) [Volume fraction] 43.8 % Normal 42.0-54.0 [facility] Comment on above: Performed By: #### C BC #### [facility] [address] [place] [address] Dr. Kamaljit Browning Hemoglobin (Bld) [Mass/Vol] 14.4 g/dL Normal 14.0-18.0 [facility] Comment on above: Performed By: #### C BC #### [facility] [address] [place] [address] Dr. Kamaljit Browning IG # 0.02 10e3/ul Normal 0.00-0.03 [facility] Comment on above: Performed By: #### C BC #### [facility] [address] [place] [address] Dr. Kamaljit Browning IG % 0.3 % Normal 0.0-0.5 [facility] Comment on above: Performed By: #### C BC #### [facility] [address] [address] [address] Kamaljit Browning LYMPH # 1.1 103/ul Critically low 1.2-3.8 [facility] Comment on above: Performed By: #### C BC #### [facility] [address] [place] [address] Dr. Kamaljit Browning Lymphocytes/100 WBC (Bld) 18.5 % Critically low 20.5-60.0 [facility] Comment on above: Performed By: #### C BC #### [facility] [address] [place] [address] Dr. Kamaljit Browning MANUAL DIFF REQ NO Normal [facility] Comment on above: Performed By: #### C BC #### [facility] [address] [place] [address] Dr. Kamaljit Browning MCH (RBC) [Entitic mass] 30.2 pg Normal 25.9-34.0 [facility] Comment on above: Performed By: #### C BC #### [facility] [address] [place] [address] Dr. Kamaljit Browning MCHC (RBC) [Mass/Vol] 32.9 g/dL Normal 29.9-35.2 [facility] Comment on above: Performed By: #### C BC #### [facility] [address] [place] [address] Dr. Kamaljit Browning MCV (RBC) [Entitic vol] 91.8 fL Normal 80.0-94.0 [facility] Comment on above: Performed By: #### C BC #### [facility] [address] [place] [address] Dr. Kamaljit Browning MONO # 0.4 103/ul Normal 0.3-0.8 [facility] Comment on above: Performed By: #### C BC #### [facility] [address] [place] [address] Dr. Kamaljit Browning Monocytes/100 WBC (Bld) 7.4 % Normal 1.7-12.0 [facility] Comment on above: Performed By: #### C BC #### [facility] [address] [place] [address] Dr. Kamaljit Browning NEUT # 4.1 103/ul Normal 1.4-6.5 [facility] Comment on above: Performed By: #### C BC #### [facility] [address] [place] [address] Dr. Kamaljit Browning Neutrophils/100 WBC (Bld) 71.6 % Normal 43.0-75.0 [facility] Comment on above: Performed By: #### C BC #### [facility] [address] [place] [address] Dr. Kamaljit Browning Platelet mean volume (Bld) [Entitic vol] 12.4 fL Normal 9.5-13.5 [facility] Comment on above: Performed By: #### C BC #### [facility] [address] [place] [address] Dr. Kamaljit Browning PLT 111 103/ul Critically low 150-450 [facility] Comment on above: Performed By: #### C BC #### [facility] [address] [place] [address] Dr. Kamaljit Browning RBC 4.77 106/ul Normal 4.70-6.10 [facility] Comment on above: Performed By: #### C BC #### [facility] [address] [place] [address] Dr. Kamaljit Browning WBC 5.8 103/ul Normal 4.0-11.0 [facility] Comment on above: Performed By: #### C BC #### [facility] [address] [place] [address] Dr. Kamaljit Browning Covid-19 PCR ([facility])on 11-28 SARS-CoV-2 (COVID-19) RNA SOURAV+probe Ql (Unsp spec) Not detected Normal NOT DETECTED [facility] Comment on above: Result Comment: When diagnostic testing is negative, the possibility of a false negative should be considered in the context of a patient's recent exposures and the presence of clinical signs and symptoms consistent with SARS-CoV-2. This test is not yet approved or cleared by the [place] FDA. When there are no FDA-approved or cleared tests available, and other criteria are met, FDA can make tests available under an emergency access mechanism called an Emergency Use Authorization (EUA). The EUA for this test is supported by the Global Regulatory Affairs Manager of Health and Human Service's declaration that circumstances exist to justify the emergency use of in vitro diagnostics for the detection and/or diagnosis of the virus that causes COVID-19. This EUA will remain in effect for the duration of the COVID-19 declaration justifying emergency of IVDs, unless it is terminated or revoked by the FDA (after which the test may no longer be used). Performed By: #### C MP, BNP #### [facility] [address] [place] [address] Dr. Kamaljit Browning PROF 14(COMP METB)on 022 Albumin [Mass/Vol] 4.3 g/dL Normal 3.4-5.[address] [facility] Comment on above: Performed By: #### A 1C #### [facility] [address] [place] [address] Dr. Kamaljit Browning Albumin/Globulin [Mass ratio] 1.2 {ratio} Normal [facility] Comment on above: Performed By: #### A 1C #### [facility] [address] [place] [address] Dr. Kamaljit Browning ALP [Catalytic activity/Vol] 115 U/L Normal 46-116 [facility] Comment on above: Performed By: #### A 1C #### [facility] [address] [place] [address] Dr. Kamaljit Browning ALT [Catalytic activity/Vol] 35 U/L Normal 16-63 [facility] Comment on above: Performed By: #### A 1C #### [facility] [address] [place] [address] Dr. Kamaljit Browning Anion gap [Moles/Vol] 15.0 mmol/L Normal [facility] Comment on above: Performed By: #### A 1C #### [facility] [address] [place] [address] Dr. Kamaljit Browning AST [Catalytic activity/Vol] 26 U/L Normal 15-37 [facility] Comment on above: Performed By: #### A 1C #### [facility] [address] [place], [place] [id number] Dr. Kamaljit Browning Bilirubin [Mass/Vol] 0.5 mg/dL Normal 0.2-1.0 [facility] Comment on above: Performed By: #### A 1C #### [facility] [address] [place] [address] Dr. Kamaljit Browning Calcium [Mass/Vol] 8.6 mg/dL Normal 8.5-10.[address] [facility] Comment on above: Performed By: #### A 1C #### [facility] [address] [place] [address] Dr. Kamaljit Browning Chloride [Moles/Vol] 106 mmol/L Normal 98-107 [facility] Comment on above: Performed By: #### A 1C #### [facility] [address] [place] [address] Dr. Kamaljit Browning CO2 [Moles/Vol] 24.0 mmol/L Normal 21.0-32.0 [facility] Comment on above: Performed By: #### A 1C #### [facility] [address] [place] [address] Dr. Kamaljit Browning Creatinine [Mass/Vol] 1.02 mg/dL Normal 0.70-1.30 [facility] Comment on above: Performed By: #### A 1C #### [facility] [address] [place] [address] Dr. Kamaljit Browning EGFR-AF SLOVAK >60 Normal >=60 [facility] Comment on above: Performed By: #### A 1C #### [facility] [address] [place] [address] Dr. Kamaljit Browning EGFR-NON AF SLOVAK >60 Normal >=60 [facility] Comment on above: Performed By: #### A 1C #### [facility] [address] [place] [address] Dr. Kamaljit Browning Globulin (S) [Mass/Vol] 3.5 g/dL Normal [facility] Comment on above: Performed By: #### A 1C #### [facility] [address] [place] [address] Dr. Kamaljit Browning Glucose [Mass/Vol] 138 mg/dL Critically high 74-106 [facility] Comment on above: Performed By: #### A 1C #### [facility] [address] [address] [address] Kamaljit Browning Potassium [Moles/Vol] 4.0 mmol/L Normal 3.5-5.1 [facility] Comment on above: Performed By: #### A 1C #### [facility] [address] [address] [address] Kamaljit Browning Protein [Mass/Vol] 7.8 g/dL Normal 6.4-8.[address] [facility] Comment on above: Performed By: #### A 1C #### [facility] [address] [address] [address] Kamaljit Browning Sodium [Moles/Vol] 141 mmol/L Normal 136-[address] [facility] Comment on above: Performed By: #### A 1C #### [facility] [address] [address] [address] Kamaljit Browning Urea nitrogen [Mass/Vol] 13.0 mg/dL Normal 7.0-18.0 [facility] Comment on above: Performed By: #### A 1C #### [facility] [address] [place] [address] Dr. Kamaljit Browning Urea nitrogen/Creatinine [Mass ratio] 12.7 mg/mg Normal [facility] Comment on above: Performed By: #### A 1C #### [facility] [address] [place] [address] Dr. Kamaljit Browning TROPONIN, HIGH SENSITIVITYon 12-17-2021 HSTROP 11.1 pg/mL Normal 4.0-76.1 [facility] Comment on above: Result Comment: CUT- OFF POINTS HAVE BEEN ESTABLISHED BASED ON THE FOURTH UNIVERSAL DEFINITIONS OF MYOCARDIAL INFARCTION. THE UPPER REFERENCE LIMIT (URL) OF TROPONIN, DEFINED THE 99TH PERCENTILE OF cTnI DISTRIBUTION IN A REFERENCE POPULATION, HAS BEEN CONFIRMED THE DECISION THRESHOLD FOR PR DIAGNOSIS. Performed By: #### A 1C #### [facility] [address] [place] [address] Dr. Kamaljit Browning Social History Date Type Detail Facility Start: 03-18-2023 Tobacco smoking status Ex-smoker (fi [facility]ding) [facility] [facility] Tobacco smoking status Never [facility] Sex Assigned At Male [facility] Vital Signs Date Time Vital Sign Value Performing Clinician Perez michaelayo 03-18-2023 14:09-0400 Blood Pressure Location [facility] 03-18-2023 14:09-0400 Diastolic blood pressure 86 mm[Hg] [facility] 03-18-2023 14:09-0400 Heart rate 70 /min [facility] 03-18-2023 14:09-0400 Respiratory rate 16 /min [facility] 03-18-2023 14:09-0400 Systolic blood pressure 130 mm[Hg] [facility] Functional Status Date Assessment Result Facility 03-18-2023 Functional Status N/A [facility] Clinical Note 04-01-2023 Note Date & Type Note Facility 04-01-2023 Note [id number] #[id number] Kiana from [facility] called stating he is ok to hold coumadin 4 days before procedure and will not need bridged, she will call pt tp inform him [facility] Comment on above: Result Comment: Elec tronically Signed By: Norma Barajas\Date and Time Signed: 04/01/23 11:59 EDT Clinical Note 03-18-2023 Note Date & Type Note Facility 03-18-2023 Note Chief Complaint consultation for positive occult stool HPI Staff 73 year old male presents on consultation from Dr. Wooten for positive occult stool. Denies abdominal or rectal pain. No rectal bleeding or change in bowel habits. Denies nausea or vomiting. No unexplained weight loss. Patient on Coumadin for history of valve replacement. He can not recall how this was managed for previous colonoscopy. He had yearly check up with Dr. Langley this morning. Last colonoscopy completed 02/2018 with diverticulosis, internal hemorrhoids and incomplete bowel prep. No known family history of colon cancer. History of Present Illness 73 yo male with h/o AVR, on Coumadin, CAD, htn, hyperlipidemia, COPD, PARAG, GERD, referred for positive fecal occult blood; denies change in bms or blood in stools, no abd complaints; no abd operations, last colonoscopy 2017 with diverticulosis, poor prep; on baby asa and Coumadin daily, no NSAIDs; uses SBE Prophylaxis; no fmhx of GI malignancy; former smoker, quit 11 years ago. Review of Systems PHQ Score Initial Depression Screen Score: 0 ROS - Provider Constitutional: no fever, no sweats, no weight loss. Eyes: no glasses, no blurred vision, no visual loss. ENMT: no dentures, no hoarseness, no swallowing difficulties, no hearing loss, no ear infection(s), no nose bleeds. Cardiovascular: normal blood pressure, no chest pain, regular heartbeat, no heart murmur. Respiratory: no shortness of breath, no cough, no asthma, no wheezing. Gastrointestinal: no nausea, no vomiting, no diarrhea, no constipation, no blood in stool, no change in bowel habits, no abdominal pain, no hepatitis. Genitourinary: no kidney stones, no urine infection, no dysuria. Musculoskeletal: no pain, no weakness. Skin: no changing moles, no rash, no skin lumps. Neurologic: no seizures, no epilepsy, no headache. Psychiatric: no emotional or psychiatric problem. Heme/Lymph: no bleeding problems, no anemia, no blood clots, no transfusions. Allergy/Immunologic: no swollen lymph nodes/glands, no IV drug abuse. Other: Additional ROS info: Except as noted in the above Review of Systems and in the History of Present Illness, all other systems have been reviewed and are negative or noncontributory. Physical Exam Vitals & Measurements HR: 70(Peripheral) RR: 16 BP: 130/86 HT: 66 in HT: 168.9 cm WT: 100.8 kg WT: 221.76 lb BMI: 35.33 HEENT: normal conjunctiva, sclera clear, no scleral icterus, EOM intact, PERRLA, oral mucosa moist without lesions. Neck: trachea midline, no mass, symmetric, no thyromegaly or nodules, no adenopathy Respiratory: lungs CTA, respirations non labored. Cardiovascular: regular rate and rhythm, no murmur, no pedal edema or varicosities. Gastrointestinal: obese, soft, non distended, no tenderness, no masses, no palpable hernias, diastasis recti no, no hepatosplenomegaly; normal bs Lymphatic: no cervical adenopathy, no supraclavicular adenopathy. Musculoskeletal: normal gait, digits and nails without infection, nodes, cyanosis, clubbing. Skin: no rashes, no lesions, no ulcers, no subcutaneous nodules, induration. Psychiatric/Neuro: oriented to time, place, person, judgement normal, affect appropriate for age, insight intact, no focal deficits. Tests: labs reviewed,review of old records completed, Discussed surgical options, risks, and possible complications with patient. Assessment/Plan 1. Fecal occult blood test positive (R19.5: Other fecal abnormalities) plan colonoscopy under anesthesia, informed consent obtained. discuss with Cardiology need for Bridging with Lovenox while Coumadin is held; Unasyn preop for SBE prophylaxis. 2. 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 Medications aspirin 81 mg Oral EC Tab, 81 mg= 1 tab(s), Oral, Daily carvedilol 25 mg Tab, 25 mg= 1 tab(s), Oral, q8hr CeleXA 20 mg Tab, 20 mg= 1 tab(s), Oral, Daily Centrum Silver oral tablet, 1 tab(s), Oral, Daily chlorthalidone 25 mg Tab, 25 mg= 1 tab(s), Oral, Daily cloNIDine 0.1 mg tab, 0.1 mg= 1 tab(s), Oral, TID doxazosin 8 mg oral tablet, 8 mg= 1 tab(s), Oral, Daily lisinopril 40 mg Tab, 40 mg= 1 tab(s), Oral, Daily Lopid 600 mg Tab, 600 mg= 1 tab(s), Oral, BID Pantoprazole [address] Tab, 40 mg= 1 tab(s), Oral, Daily simvastatin 40 mg Tab, 40 mg= 1 ta (more content not included)... [facility] Comment on above: Result Comment: Elec tronically Signed By: BENSON RODRIGUES, Leo Monae\Date and Time Signed: 03/18/23 14:47 EDT Progress note 03-18-2023 Note Date & Type Note Facility 03-18-2023 Note [facility] Cardiology Clinic Note Chief Complaint: Patient here for 1 year follow up aortic valve disorder, CAD, and hypertension. Hydrochlorothiazide was switched to chlorthalidone at last apt. Dr. Wooten switched it to every other day. He had echo in November 2022. He denies chest pain, SOB, and palpitations. Doing very well. HPI: Martin West is a 73 y.o. male with a history of coronary artery disease, aortic valve stenosis s/p valve replacement and labile hypertension here in routine follow-up Doing well; no new symptoms Blood pressure at home has been well controlled Cardiology ROS: Review of Systems All other systems reviewed and are negative. Past Medical History He has no past medical history on file. Surgical History He has no past surgical history on file. Social History He has no history on file for tobacco use, alcohol use, and drug use. Family History No family history on file. Allergies Patient has no allergy information on record. Medications Current Outpatient Medications: chlorthalidone (Hygroton) 25 mg tablet, Take 1 tablet (25 mg) by mouth in the morning., Disp: 90 tablet, Rfl: 0 Last Recorded Vitals BP (!) 185/79 (BP Location: Left arm, Patient Position: Sitting) Pulse 58 Ht 1.676 m (5' 6 ) Wt 89.8 kg (198 lb) SpO2 97% BMI 31.96 kg/m??? Physical Examination: GENERAL: alert and oriented x3, well developed, in no acute distress. HEAD: atraumatic, normocephalic. EYES: MARAH, EOMI. NECK: trachea midline, no JVD present, no carotid bruits present. CARDIAC: S1, S2 present. RRR. No murmur, rubs, or gallops. RESPIRATORY: CTAB, no increased effort of breathing, no rales, rhonchi, or wheezing. ABDOMEN: soft, nontender, nondistended. EXTREMITIES: no lower extremity edema, peripheral pulses are 2+ bilaterally. No rash/skin discoloration present. NEURO: strength/sensation equal and symmetric in bilateral upper and lower extremities. PSYCH: appropriate mood, affect, and judgement. Investigations: Echocardiography from 2017 show a maximum velocity of 3.42, mean gradient of 23.3 and a max gradient of 46.7. Doppler velocities are high likely due to elevated LVOT Doppler velocities and hyperdynamic LV systolic function. Renal Dopplers 12/25/2021: Renal artery flow velocities and renal artery to aortic ratio are normal. Findings are not consistent with renovascular hypertension. Echocardiogram 11/28/2022: Global left ventricular systolic function is normal; EF is 55 to 60%. Concentric left ventricular hypertrophy. Mechanical aortic valve is well-seated with trivial regurgitation. Unable to assess systolic flows accurately due to poor alignment of the Doppler beam. Moderately elevated right-sided pressures. Mild pulmonic regurgitation Assessment: 1. Aortic valve disorder - Established (stable) - 21 mmOnX Mechanical Valve On Coumadin I35.9: Nonrheumatic aortic valve disorder, unspecified HEART VALVE DISEASE: CARE INSTRUCTIONS 2. Coronary atherosclerosis - Established (stable) - MILD I25.10: Atherosclerotic heart disease of [place] coronary artery without angina pectoris 3. Essential hypertension - Established (stable) I10: Essential (primary) hypertension HIGH BLOOD PRESSURE: CARE INSTRUCTIONS LEARNING ABOUT HIGH BLOOD PRESSURE 4. Hypertensive urgency I16.0: Hypertensive urgency 5. Gastroesophageal reflux disease K21.9: Gastro-esophageal reflux disease without esophagitis GASTROESOPHAGEAL REFLUX DISEASE (GERD): CARE INSTRUCTIONS 6. Labile hypertension due to being in a clinical environment I15.8: Other secondary hypertension Plan: Continue optimal medical therapy for coronary artery disease including aspirin, statin, and a beta-benja He is on Coumadin and follows up with the Coumadin clinic for his history of mechanical aortic valve He is to monitor his blood pressure and heart rate at home and let us know of any significant fluctuations Return to clinic in 1 year or sooner should problems arise Alayna Langley MD, MPH, FACC, [facility], [facility] Interventional Cardiology Pager Email: [email or web address] Evaluation + Plan note Note Date & Type Note Facility Evaluation + Plan note No data available for this section [facility] Discharge instructions Note Date & Type Note Facility Hospital Discharge instructions No data available for this section [facility] note Note Date & Type Note Facility Progress note No data available for this section General [facility] Summary Purpose Family History No Family History Records FoundNo Family History Records FoundNo Family History Records Found Advance Directives No Advanced Directives Records FoundNo Advanced Directives Records FoundNo Advanced Directives Records Found Additional Source Comments (unrecognized sect ion and content) No Status Records FoundNo Status Records FoundNo Status Records Found INFORMATION SOURCE (unrecogn ized section and content) DATE CREATED AUTHOR 12/05/2022 [facility] DATE CREATED AUTHOR AUTHOR'S ORGANIZ ATION 03/20/2023 [facility] DATE CREATED AUTHOR AUTHOR'S ORGANIZ ATION 04/28/2023 [facility] Patient Care team informatio n (unrecognized section and content) Personnel Name: Petra Wooten MD Address: Address: [address] [place] [address] FOR RECORDS PERTAINING TO PATIENTS WHO ARE OR HAVE BEEN ENROLLED IN A CHEMICAL DEPENDENCY/SUBSTANCEABUSE PROGRAM, SOME INFORMATION MAY BE OMITTED. This clinical summary was aggregated from multiple sources. Caution should be exercised in using it in the provision of clinical care. This summary normalizes information from multiple sources, and as a consequence, information in this document may materially change the coding, format and clinical context of patient data. In addition, data may be omitted in some cases. CLINICAL DECISIONS SHOULD BE BASED ON THE PRIMARY CLINICAL RECORDS. [facility] [employer] provides no warranty or guarantee of the accuracy or completeness of information in this document.
[2023-11-26 12:03] LABS: Basophils Absolute Auto 0.1 10^3/uL (0.0-0.1); Basophils Percent Auto 0.9 % (0.2-2.0); Eosinophils Absolute Auto 0.1 10^3/uL (0.0-0.7); Eosinophils Percent Auto 1.5 % (0.9-7.0); Hematocrit 40.9 % (42.0-54.0); Hemoglobin 13.3 g/dL (14.0-18.0); Immature Granulocytes Abs Auto 0.02 10^3/uL (0.00-0.03); Immature Granulocytes Pct Auto 0.4 % (0.0-0.5); Lymphocytes Absolute Auto 0.9 10^3/uL (1.2-3.8); Mean Corpuscular HGB Conc 32.5 g/dL (29.9-35.2); Mean Corpuscular Hemoglobin 30.6 pg (25.9-34.0); Mean Platelet Volume 12.8 fL (9.5-13.5); Monocytes Absolute Auto 0.4 10^3/uL (0.3-0.8); Monocytes Percent Auto 6.8 % (1.7-12.0); Neutrophils Percent Auto 73.4 % (43.0-75.0); Platelet Count 109 10^3/uL (150-450); Red Blood Count 4.35 10^6/uL (4.70-6.10); White Blood Count 5.5 10^3/uL (4.0-11.0)
[2023-11-26 12:53] LABS: Alanine Aminotransferase 38 U/L (16-63); Albumin Globulin Ratio 1.2; Alkaline Phosphatase 94 U/L (46-116); Anion Gap 12.3; Aspartate Amino Transferase 27 U/L (15-37); BUN Creatinine Ratio 16.4; Bilirubin Total 0.4 mg/dL (0.2-1.0); Calcium 8.5 mg/dL (8.5-10.1); Carbon Dioxide 28.3 mmol/L (21.0-32.0); Chloride 106 mmol/L (98-107); Cholesterol 165 mg/dL (<=200); Estimated GFR (African America >60 (>=60); Estimated GFR (Non-African Ame 55 (>=60); Globulin 3.4 g/dL; Glucose 149 mg/dL (74-106); HDL Cholesterol 41 mg/dL (40-60); LDL Cholesterol Calculated 96.4 mg/dL; Potassium 4.6 mmol/L (3.5-5.1); Sodium 142 mmol/L (136-145); Thyroid Stimulating Hormone 1.514 uIU/mL (0.358-3.740); Total Protein 7.4 g/dL (6.4-8.2); Triglycerides 138 mg/dL (<=150); VLDL CHOLESTEROL 27.6 mg/dL
[2023-11-26 13:09] LABS: Estimated Average Glucose 163 mg/dL; Glycohemoglobin A1C 7.3 % (4.5-6.2)
== END 2023-11-26 10:38 | disposition home or self-care (01) ==
LOC: LAB 10:40
PROVIDERS: PCP Family Medicine; Visit Provider Family Medicine
DX: E78.5 Hyperlipidemia, unspecified (principal); E11.9 Type 2 diabetes mellitus without complications; I10 Essential (primary) hypertension; K21.9 Gastro-esophageal reflux disease without esophagitis
CPT/HCPCS: 36415; 80053; 80061; 83036; 84436; 84443; 84481; 85025

== ENCOUNTER 2023-11-30 03:18 | Outpatient (RCR) | payer MEDICARE, SELFPAY | END 2023-12-25 10:46 | disposition home or self-care (01) | LOC: MM 03:18 | PROVIDERS: PCP Family Medicine; Visit Provider Internal Medicine | DX: Z51.81 Encounter for therapeutic drug level monitoring (principal); Z79.01 Long term (current) use of anticoagulants; I48.91 Unspecified atrial fibrillation ==

== ENCOUNTER 2023-12-28 00:27 | Outpatient (RCR) | payer MEDICARE, SELFPAY | END 2024-01-27 10:06 | disposition home or self-care (01) | LOC: MM 00:27 | PROVIDERS: PCP Family Medicine; Visit Provider Internal Medicine | DX: Z51.81 Encounter for therapeutic drug level monitoring (principal); Z79.01 Long term (current) use of anticoagulants; I48.91 Unspecified atrial fibrillation | CPT/HCPCS: 85610; G0463 ==

== ENCOUNTER 2024-01-11 16:35 | Outpatient (OUT) | payer MEDICARE, SELFPAY ==
--- OUTSIDE RECORDS SUMMARY | 2024-01-11 16:55 | XMS_ITS ---
Patient Summarization (C-CDA 2.1 CCD) Created on: January 11, 2024 MARTIN WEST : 1950 Sex: Male Author Organization Sample organization Care Team Providers Care Pressroom Foreman Name Role Phone EMANUEL ., DR LAMBERT Primary Care Unavailable FAWWAD, [...] HOY ., DR LAMBERT Primary Care Unavailable ANNAECK, DR AMBROSIO Bogsg Consulting Unavailabl e JACKIE, DR AMBROSIO Boggs Attending Unavailabl e JACKIE, [...] Unavailable HOY ., DR LAMBERT Attending Unavailable [place], DR LISBET Santamaria Consulting Unavailable RAULGAGE Consulting Unavailable HOY ., DR LAMBERT Primary Care Unavailable HOY ., DR LAMBERT Admitting Unavailable HOY ., DR LAMBERT Consulting Unavailable HOY ., DR LAMBERT Attending Unavailable HOY ., DR LAMBERT Primary Care Unavailable ELTAHAWY, DR FLEMING Consulting Unavailable ELTAHAWJessica, DR FLEMING Attending Unavailable ELMP, DR FLEMING Admitting Unavailable Petra Wooten Primary Care Physician [phone] ALAYNA LANGLEY Attending Unavailable Leo TATE Attending Unavailable Leo TATE Attending Unavailable Allergies Allergy Classification Reported Allergen(s) Allergy Type Date of Onset Reaction(s) Facility (1 source) No Known Medication Allergies; Translations: [No Known Medication Allergies] Propensity to adverse reactions (disorder) [facility] Repository Encounters Encounter Date Encounter Type Care Provider Facility Start: 04-08-2023 End: 04-09-2023 ambulatory Leo TATE Facility:CD:[id number] Start: 03-18-2023 End: 03-19-2023 ambulatory Leo TATE Facility:DEVON Villaseñor Start: 03-18-2023 End: 03-18-2023 Patient encounter procedure Leo TATE General Surgery Benson/Paula Villaseñor Start: 03-18-2023 End: 03-18-2023 ambulatory ALAYNA [facility] Start: 03-06-2023 ambulatory Leo TATE Facility:[facility] Start: 03-05-2023 ambulatory Leo BENSON Facility:[facility] Start: 11-14-2022 End: 11-15-2022 ambulatory [...] BEATRIZ Facility:[facility] Start: 03-30-2022 End: 04-28-2022 ambulatory SHAIKH Juan Luis HENDERSON Facility:[facility] Start: 03-12-2022 End: 03-13-[address] [...] Date Immunization Notes Care Provider Fa cility 10-06-2022 SARS-CoV-2 (COVID-19 ) mRNAMUL.ORD![id number] Leo TATE [facility] 12-02-2021 SARS-CoV-2 mRNA (oplaxvvrinm-natw-ohugu se) vaccine Leo ADAMSFix That [facility] 03-23-2021 SARS-CoV-2 (COVID-19 ) mRNA BNT-162b2 vax [facility]You [facility] Comment on above: Result Comment: 2022: [id number] 08-30-2020 SARS-CoV-2 (COVID-19 ) mRNA BNT-162b2 vax [facility] Comment on above: Result Comment: 2022: [id number] 08-09-2020 SARS-CoV-2 (COVID-19 ) mRNA BNT-162b2 vax [facility]You [facility] Comment on above: Result Comment: 2022: [...] Ordered Payers Date Payer Category Payer Unknown [id number] 1957 Medicare [id number] 1959 Unknown [id number] 1959 Unknown [id number] 1950 Unknown [id number] 2.16.84 0.1.444835.3.579.2.593 1950 Unknown [id number] 2.16.84 0.1.709423.3.579.2.593 1950 Unknown [id number] 2.16.84 0.1.560451.3.579.2.593 1950 Unknown [id number] 2.16.84 0.1.506955.3.579.2.593 1950 Unknown [id number] 2.16.84 0.1.570039.3.579.2.593 1950 Unknown [id number] 2.16.84 0.1.657894.3.579.2.593 1950 Unknown [id number] 2.16.84 0.1.807283.3.579.2.593 1950 Unknown [id number] 2.16.84 0.1.562243.3.579.2.593 1950 Unknown [id number] 2.16.84 0.1.500939.3.579.2.593 1950 Unknown [id number] 2.16.84 0.1.483598.3.579.2.593 1950 Unknown [id number] 2.16.84 0.1.591229.3.579.2.593 1950 Unknown [id number] 2.16.84 0.1.551677.3.579.2.593 1950 Unknown [id number] 2.16.84 0.1.604908.3.579.2.593 1950 Unknown [id number] 2.16.84 0.1.481966.3.579.2.593 1950 Unknown [id number] 2.16.84 0.1.527973.3.579.2.593 1950 Unknown [id number] 2.16.84 0.1.786435.3.579.2.593 1950 Unknown [id number] 2.16.84 0.1.500625.3.579.2.593 1950 Unknown [id number] 2.16.8 40.1.202219.3.579.2.727 1950 Unknown [id number] 2.16.8 40.1.082315.3.579.2.727 1950 Unknown [id number] 2.16.8 40.1.379485.3.579.2.727 Problems Active Problems Problem Classification Problem Date [...] Onset: 01-01-2022 Episodic Other aftercare (1 source) care home (current) use of anticoagulants; Translations: [[facility]I CURRNT USE ANTICOAGULANTS] Onset: 11-26-2022 Episodic Other aftercare (2 sources) Long-term current use of anticoagulant; Translations: [care home (current) use of anticoagulants] Onset: 03-18-2023 Episodic [...] 06-08-2022 Episodic Other aftercare (1 source) Other shelter (current) drug therapy; Translations: [OTH [facility] CURRENT DRUG THERAPY] Onset: 06-11-2022 Episodic Other aftercare (1 source) care home (current) use of aspirin; Translations: [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 Kamaljit Browning Start: 03-17-2018 Colonoscopy Leo KNOG Start: 08-28-2011 Replacement of aorti c valve Leo TATE Results Test Name Value Interpretation Reference Range Facility Outside Colonoscopyon 2022 Outside Colonoscopy [id number]#1 .00TIFF [facility] Reminderson 04-09-2023 Reminders - From: Karlene Stewart LPN To: N - Clinical; Sent: 04/09/2023 10:49:10 EDT Show up: 03/09/2033 07:00:00 EDT Subject: colonoscopy recall Due Date/Time: 04/08/2033 07:00:00 EDT Reminder/Recall Patient due for screening colonoscopy 04/08/2033. 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 Nicotine dependence Normal [facility] Office Visiton 03-18-2023 Follow-up visit [id number] Martin West 1950 M Date Provider Department Center 03/18/2023 271-KADETAMASON, EHAB CARD [facility] No family history on file Level of Service:59370 CO OFFICE/OUTPATIENT ESTABLISHED LOW MDM 20-29 MIN Normal [facility] Physician Referralon 023 Physician Referral [id number]. 00CD:127 Normal [facility] INSULINon 11-15-2022 Insulin 20.3 uIU/mL Normal 2.6-24.9 [facility] Comment on above: Performed By: #### I NSULIN #### [facility] [address] [place] [address] Dr. Kamaljit Browning CBC AUTO DIFFon 11-14-2022 BASO # 0.0 103/ul Normal 0.0-0.1 [facility] Comment on above: Performed By: #### C MP, BNP #### [facility] [address] [place] [address] Dr. Kamaljit Browning Basophils/100 WBC (Bld) 0.8 % Normal 0.2-2.0 [facility] Comment on above: Performed By: #### C MP, BNP #### [facility] [address] [place] [address] Dr. Kamaljit Browning EO # 0.1 103/ul Normal 0.0-0.7 [facility] Comment on above: Performed By: #### C MP, BNP #### [facility] [address] [place] [address] Dr. Kamaljit Browning Eosinophils/100 WBC (Bld) 1.7 % Normal 0.9-7.0 [facility] Comment on above: Performed By: #### C MP, BNP #### [facility] [address] [place] [address] Dr. Kamaljit Browning Erythrocyte distribution width (RBC) [Ratio] 12.7 % Normal 11.0-15.0 [facility] Comment on above: Performed By: #### C MP, BNP #### [facility] [address] [place] [address] Dr. Kamaljit Browning Hematocrit (Bld) [Volume fraction] 38.4 % Critically low 42.0-54.0 [facility] Comment on above: Performed By: #### C MP, BNP #### [facility] [address] [place] [address] Dr. Kamaljit Browning Hemoglobin (Bld) [Mass/Vol] 12.8 g/dL Critically low 14.0-18.0 [facility] Comment on above: Performed By: #### C MP, BNP #### [facility] [address] [place] [address] Dr. Kamaljit Browning IG # 0.02 10e3/ul Normal 0.00-0.03 [facility] Comment on above: Performed By: #### C MP, BNP #### [facility] [address] [place] [address] Dr. Kamaljit Browning IG % 0.4 % Normal 0.0-0.5 [facility] Comment on above: Performed By: #### C MP, BNP #### [facility] [address] [place] [address] Dr. Kamaljit Browning LYMPH # 0.8 103/ul Critically low 1.2-3.8 [facility] Comment on above: Performed By: #### C MP, BNP #### [facility] [address] [place] [address] Dr. Kamaljit Browning Lymphocytes/100 WBC (Bld) 15.2 % Critically low 20.5-60.0 [facility] Comment on above: Performed By: #### C MP, BNP #### [facility] [address] [place] [address] Dr. Kamaljit Browning MANUAL DIFF REQ NO Normal [facility] Comment on above: Performed By: #### C MP, BNP #### [facility] [address] [place] [address] Dr. Kamaljit Browning MCH (RBC) [Entitic mass] 30.6 pg Normal 25.9-34.0 [facility] Comment on above: Performed By: #### C MP, BNP #### [facility] [address] [place], [place] [id number] Dr. Kamaljit Browning MCHC (RBC) [Mass/Vol] 33.3 g/dL Normal 29.9-35.2 [facility] Comment on above: Performed By: #### C MP, BNP #### [facility] [address] [place] [address] Dr. Kamaljit Browning MCV (RBC) [Entitic vol] 91.9 fL Normal 80.0-94.0 [facility] Comment on above: Performed By: #### C MP, BNP #### [facility] [address] [place] [address] Dr. Kamaljit Browning MONO # 0.5 103/ul Normal 0.3-0.8 [facility] Comment on above: Performed By: #### C MP, BNP #### [facility] [address] [place] [address] Dr. Kamaljit Browning Monocytes/100 WBC (Bld) 8.9 % Normal 1.7-12.0 [facility] Comment on above: Performed By: #### C MP, BNP #### [facility] [address] [place] [address] Dr. Kamaljit Browning NEUT # 3.8 103/ul Normal 1.4-6.5 [facility] Comment on above: Performed By: #### C MP, BNP #### [facility] [address] [place] [address] Dr. Kamaljit Browning Neutrophils/100 WBC (Bld) 73.0 % Normal 43.0-75.0 [facility] Comment on above: Performed By: #### C MP, BNP #### [facility] [address] [place] [address] Dr. Kamaljit Browning Platelet mean volume (Bld) [Entitic vol] 12.5 fL Normal 9.5-13.5 [facility] Comment on above: Performed By: #### C MP, BNP #### [facility] [address] [place] [address] Dr. Kamaljit Browning PLT 126 103/ul Critically low 150-450 [facility] Comment on above: Performed By: #### C MP, BNP #### [facility] [address] [address] [address] Kamaljit Browning RBC 4.18 106/ul Critically low 4.70-6.10 [facility] Comment on above: Performed By: #### C MP, BNP #### [facility] [address] [address] [address] Kamaljit Browning WBC 5.2 103/ul Normal 4.0-11.0 [facility] Comment on above: Performed By: #### C MP, BNP #### [facility] [address] [address] [address] Kamaljit Browning FREE THYROXINE INDEX T7on FTI 2.31 Normal 1.30-4.50 [facility] Comment on above: Performed By: #### C BC #### [facility] [address] [address] [address] Kamaljit Browning T3U 34.0 % Normal 33.0-40.0 [facility] Comment on above: Performed By: #### C BC #### [facility] [address] [address] [address] Kamaljit Browning T4 [Mass/Vol] 6.80 ug/dL Normal 4.50-12.10 [facility] Comment on above: Performed By: #### C BC #### [facility] [address] [address] [address] Kamaljit Browning GLYCOHEMOGLOBIN A1Con 2022 ADA RECOMMENDATION SEE BELOW Normal [facility] Comment on above: Result Comment: ADA RECOMMENDED LIMIT 4.0 - 6.0 ADA THERAPEUTIC TARGET < 7.0 ACTION SUGGESTED > 7.0 Performed By: #### A 1C #### [facility] [address] [address] [address] Kamaljit Browning Glucose [Mass/Vol] 154 mg/dL Normal [facility] Comment on above: Performed By: #### A 1C #### [facility] [address] [address] [address] Kamaljit Browning HbA1c (Bld) [Mass fraction] 7.0 % Critically high 4.5-6.2 [facility] Comment on above: Performed By: #### A 1C #### [facility] [address] [address] [address] Kamaljit Browning LIPID PROFILEon 11-14-2022 CHOL-HDL RATIO NORM SEE BELOW Normal [facility] Comment on above: Result Comment: 3.3 - 4.4 LOW RISK 4.4 - 7.1 AVERAGE RISK 7.1 - 11.0 MODERATE RISK >11.0 HIGH RISK Performed By: #### A 1C #### [facility] [address] [address] [address] Kamaljit Browning Cholesterol [Mass/Vol] 148 mg/dL Normal <=200 [facility] Comment on above: Performed By: #### A 1C #### [facility] [address] [address] [address] Kamaljit Browning Cholesterol in HDL [Mass/Vol] 41 mg/dL Normal 40-60 [facility] Comment on above: Performed By: #### A 1C #### [facility] [address] [address] [address] Kamaljit Browning Cholesterol in LDL [Mass/Vol] 81.6 mg/dL Normal [facility] Comment on above: Performed By: #### A 1C #### [facility] [address] [address] [address] Kamaljit Browning Cholesterol.total/Ch olesterol in HDL [Mass ratio] 3.6 {ratio} Normal [facility] Comment on above: Performed By: #### A 1C #### [facility] [address] [address] [address] Kamaljit Browning HDL NORMAL > or = 60 mg/dl - LO W CARDIOVASCULAR RISK <40 mg/dl - HIGH CARDIOVASCULAR RISK Normal [facility] Comment on above: Performed By: #### A 1C #### [facility] [address] [address] [address] Kamaljit Browning LDL CALC NORMAL SEE BELOW Normal [facility] Comment on above: Result Comment: <100 mg/dl OPTIMAL 100 - 129 mg/dl NEAR OR ABOVE OPTIMAL 130 - 159 mg/dl BORDERLINE HIGH 160 - 189 mg/dl HIGH >190 mg/dl VERY HIGH Performed By: #### A 1C #### [facility] [address] [place] [address] Dr. Kamaljit Browning Triglyceride [Mass/Vol] 127 mg/dL Normal <=150 [facility] Comment on above: Performed By: #### A 1C #### [facility] [address] [address] [address] Kamaljit Browning VLDL CALC 25.4 mg/dL Normal [facility] Comment on above: Performed By: #### A 1C #### [facility] [address] [place] [address] Dr. Kamaljit Browning PROF 14(COMP METB)on 023 Albumin [Mass/Vol] 4.2 g/dL Normal 3.4-5.0 [facility] Comment on above: Performed By: #### A 1C #### [facility] [address] [place] [address] Dr. Kamaljit Browning Albumin/Globulin [Mass ratio] 1.3 {ratio} Normal [facility] Comment on above: Performed By: #### A 1C #### [facility] [address] [place] [address] Dr. Kamaljit Browning ALP [Catalytic activity/Vol] 79 U/L Normal 46-116 [facility] Comment on above: Performed By: #### A 1C #### [facility] [address] [place] [address] Dr. Kamaljit Browning ALT [Catalytic activity/Vol] 27 U/L Normal 16-63 [facility] Comment on above: Performed By: #### A 1C #### [facility] [address] [place] [address] Dr. Kamaljit Browning Anion gap [Moles/Vol] 15.0 mmol/L Normal [facility] Comment on above: Performed By: #### A 1C #### [facility] [address] [place] [address] Dr. Kamaljit Browning AST [Catalytic activity/Vol] 23 U/L Normal 15-37 [facility] Comment on above: Performed By: #### A 1C #### [facility] [address] [place] [address] Dr. Kamaljit Browning Bilirubin [Mass/Vol] 0.3 mg/dL Normal 0.2-1.0 [facility] Comment on above: Performed By: #### A 1C #### [facility] [address] [address] [address] Kamaljit Browning Calcium [Mass/Vol] 9.0 mg/dL Normal 8.5-10.1 [facility] Comment on above: Performed By: #### A 1C #### [facility] [address] [address] [address] Kamaljit Browning Chloride [Moles/Vol] 105 mmol/L Normal 98-107 [facility] Comment on above: Performed By: #### A 1C #### [facility] [address] [address] [address] Kamaljit Browning CO2 [Moles/Vol] 24.7 mmol/L Normal 21.0-32.0 [facility] Comment on above: Performed By: #### A 1C #### [facility] [address] [address] [address] Kamaljit Browning Creatinine [Mass/Vol] 1.55 mg/dL Critically high 0.70-1.30 [facility] Comment on above: Performed By: #### A 1C #### [facility] [address] [place] [address] Dr. Kamaljit Browning EGFR-AF DUTCH 54 mL/min/1.73m2 Critically low >=60 [facility] Comment on above: Performed By: #### A 1C #### [facility] [address] [address] [address] Kamaljit Browning EGFR-NON AF DUTCH 45 mL/min/1.73m2 Critically low >=60 [facility] Comment on above: Performed By: #### A 1C #### [facility] [address] [address] [address] Kamaljit Browning Globulin (S) [Mass/Vol] 3.3 g/dL Normal [facility] Comment on above: Performed By: #### A 1C #### [facility] [address] [address] [address] Kamaljit Browning Glucose [Mass/Vol] 129 mg/dL Critically high 74-106 [facility] Comment on above: Performed By: #### A 1C #### [facility] [address] [address] [address] Kamaljit Browning Potassium [Moles/Vol] 4.7 mmol/L Normal 3.5-5.1 [facility] Comment on above: Performed By: #### A 1C #### [facility] [address] [address] [address] Kamaljit Browning Protein [Mass/Vol] 7.5 g/dL Normal 6.4-8.2 [facility] Comment on above: Performed By: #### A 1C #### [facility] [address] [place] [address] Dr. Kamaljit Browning Sodium [Moles/Vol] 140 mmol/L Normal 136-145 [facility] Comment on above: Performed By: #### A 1C #### [facility] [address] [place] [address] Dr. Kamaljit Browning Urea nitrogen [Mass/Vol] 30.0 mg/dL Critically high 7.0-18.0 [facility] Comment on above: Performed By: #### A 1C #### [facility] [address] [place] [address] Dr. Kamaljit Browning Urea nitrogen/Creatinine [Mass ratio] 19.4 mg/mg Normal [facility] Comment on above: Performed By: #### A 1C #### [facility] [address] [place] [address] Dr. Kamaljit Browning TSHon 11-14-2022 TSH 1.597 uIU/mL Normal 0.358-3.740 [facility] Comment on above: Performed By: #### A 1C #### [facility] [address] [place] [address] Dr. Kamaljit Browning URIC ACID SERUMon 11-14-2022 Urate [Mass/Vol] 9.4 mg/dL Critically high 3.5-7.2 [facility] Comment on above: Performed By: #### C BC #### [facility] [address] [address] [address] Kamaljit Browning OCC BLD IMMUNO SCREENon 10-27 OCCULT BLOOD Positive Abnormal NEGATIVE [facility] Comment on above: Performed By: #### C MP, BNP #### [facility] [address] [place], [place] [address] Dr. Kamaljit Browning POINT OF CARE GLUCOSEon 05-29 Glucose [Mass/Vol] 329 mg/dL Critically high 74-106 [facility] Comment on above: Performed By: #### A 1C #### [facility] [address] [address] [address] Kamaljit Browning Covid-19 PCR (CVDTB)on SARS-CoV-2 (COVID-19) RNA SOURAV+probe Ql (Unsp spec) Not detected Normal NOT DETECTED [facility] Comment on above: Result Comment: When [...] for this test is supported by the [employer]'s declaration that [...] used). Performed By: #### A 1C #### [facility] [address] [place] [address] Dr. Kamaljit Browning INFLUENZA A AND B AGon 06-02 INFLUANEGH SEE BELOW Normal [facility] Comment on above: Result Comment: Nega tive for Flu A protein angiten. Infection due to Flu A cannot be ruled out. Flu A angiten in the sample may be below the detection limit of the test. Performed By: #### C BC #### [facility] [address] [place] [address] Dr. Kamaljit Browning [facility] SEE BELOW Normal [facility] Comment on above: Result Comment: Nega tive for Flu B protein antigen. Infection due to Flu B cannot be ruled out. Flu B antigen in the sample may be below the detection limit of the test. Performed By: #### C BC #### [facility] [address] [place] [address] Dr. Kamaljit Browning INFLUENZA A AG Negative Normal NEGATIVE SEE COMMENT [facility] Comment on above: Performed By: #### C BC #### [facility] [address] [place] [address] Dr. Kamaljit Browning INFLUENZA B AG Negative Normal NEGATIVE SEE COMMENT [facility] Comment on above: Performed By: #### C BC #### [facility] [address] [place] [address] Dr. Kamaljit Browning INTERNAL CONTROLS Within Normal Limits Normal Wi thin Normal Limits [facility] Comment on above: Performed By: #### C BC #### [facility] [address] [place] [address] Dr. Kamaljit Browning PROF CHEM 8 (BAS METB)on Anion gap [Moles/Vol] 13.1 mmol/L Normal [facility] Comment on above: Performed By: #### C BC #### [facility] [address] [place] [address] Dr. Kamaljit Browning Calcium [Mass/Vol] 8.9 mg/dL Normal 8.5-10.1 [facility] Comment on above: Performed By: #### C BC #### [facility] [address] [place] [address] Dr. Kamaljit Browning Chloride [Moles/Vol] 105 mmol/L Normal 98-107 [facility] Comment on above: Performed By: #### C BC #### [facility] [address] [place] [address] Dr. Kamaljit Browning CO2 [Moles/Vol] 27.3 mmol/L Normal 21.0-32.0 [facility] Comment on above: Performed By: #### C BC #### [facility] [address] [address] [address] Kamaljit Browning Creatinine [Mass/Vol] 1.28 mg/dL Normal 0.70-1.30 [facility] Comment on above: Performed By: #### C BC #### [facility] [address] [address] [address] Kamaljit Browning EGFR-AF DUTCH >60 Normal >=60 [facility] Comment on above: Performed By: #### C BC #### [facility] [address] [address] [address] Kamaljit Browning EGFR-NON AF DUTCH 56 mL/min/1.73m2 Critically low >=60 [facility] Comment on above: Performed By: #### C BC #### [facility] [address] [address] [address] Kamaljit Browning Glucose [Mass/Vol] 119 mg/dL Critically high 74-106 [facility] Comment on above: Performed By: #### C BC #### [facility] [address] [address] [address] Kamaljit Browning Potassium [Moles/Vol] 4.4 mmol/L Normal 3.5-5.1 [facility] Comment on above: Performed By: #### C BC #### [facility] [address] [address] [address] Kamaljit Browning Sodium [Moles/Vol] 141 mmol/L Normal 136-145 [facility] Comment on above: Performed By: #### C BC #### [facility] [address] [id number] Dr. Kamaljit Browning Urea nitrogen [Mass/Vol] 20.0 mg/dL Critically high 7.0-18.0 [facility] Comment on above: Performed By: #### C BC #### [facility] [address] [address] [address] Kamaljit Browning Urea nitrogen/Creatinine [Mass ratio] 15.6 mg/mg Normal [facility] Comment on above: Performed By: #### C BC #### [facility] [address] [place] [address] Dr. Kamaljit Browning METANEPHRINES PLASMA FREEon 01-18-2022 Metanephrine, Pl 46.2 pg/mL Normal 0.0-88.0 [facility] Comment on above: Performed By: #### C MP, BNP #### [facility] [address] [place] [address] Dr. Kamaljit Browning Normetanephrine, Pl 33.2 pg/mL Normal 0.0-285.2 [facility] Comment on above: Performed By: #### C MP, BNP #### [facility] [address] [place] [address] Dr. Kamaljit Browning ALDOSTERONE: RENIN RATIOon 0 01-08-2022 Aldos/Renin Ratio UPTCAL Normal [facility] Comment on above: Result Comment: Unab le to calculate result since non-numeric result obtained for component test. Units: ng/dL per ng/mL/hr Performed By: #### A LDOREN #### [facility] [address] [place] [address] Dr. Kamaljit Browning Aldosterone <1.0 Normal 0.0-30.0 [facility] Comment on above: Performed By: #### A LDOREN #### [facility] [address] [place] [address] Dr. Kamaljit Browning Renin Activity, Plasma <0.167 Critically low 0.167-5.380 [facility] Comment on above: Performed By: #### A LDOREN #### [facility] [address] [address] [address] Kamaljit Browning CATECHOLAMINES FRAC, PLASMAo n 12-31-2021 Dopamine, Pl <30 Normal 0-48 [facility] Comment on above: Performed By: #### C MP, BNP #### [facility] [address] [place] [address] Dr. Kamaljit Browning Epinephrine, Pl 58 pg/mL Normal 0-62 [facility] Comment on above: Performed By: #### C MP, BNP #### [facility] [address] [place] [address] Dr. Kamaljit Browning Norepinephrine, Pl 246 pg/mL Normal 0-874 [facility] Comment on above: Performed By: #### C MP, BNP #### [facility] [address] [place] [address] Dr. Kamaljit Browning BNPon 12-26-2021 Natriuretic peptide B (Bld) [Mass/Vol] 126.0 pg/mL Normal <=900.0 [facility] Comment on above: Performed By: #### C MP, BNP #### [facility] [address] [place] [address] Dr. Kamaljit Browning CBC AUTO DIFFon 12-26-2021 BASO # 0.1 103/ul Normal 0.0-0.1 [facility] Comment on above: Performed By: #### C BC #### [facility] [address] [place] [address] Dr. Kamaljit Browning Basophils/100 WBC (Bld) 0.9 % Normal 0.2-2.0 [facility] Comment on above: Performed By: #### C BC #### [facility] [address] [place] [address] Dr. Kamaljit Browning EO # 0.1 103/ul Normal 0.0-0.7 [facility] Comment on above: Performed By: #### C BC #### [facility] [address] [place] [address] Dr. Kamaljit Browning Eosinophils/100 WBC (Bld) 1.0 % Normal 0.9-7.0 [facility] Comment on above: Performed By: #### C BC #### [facility] [address] [place] [address] Dr. Kamaljit Browning Erythrocyte distribution width (RBC) [Ratio] 12.1 % Normal 11.0-15.0 [facility] Comment on above: Performed By: #### C BC #### [facility] [address] [place] [address] Dr. Kamaljit Browning Hematocrit (Bld) [Volume fraction] 39.2 % Critically low 42.0-54.0 [facility] Comment on above: Performed By: #### C BC #### [facility] [address] [address] [address] Kamaljit Browning Hemoglobin (Bld) [Mass/Vol] 13.2 g/dL Critically low 14.0-18.0 [facility] Comment on above: Performed By: #### C BC #### [facility] [address] [address] [address] Kamaljit Browning IG # 0.01 10e3/ul Normal 0.00-0.03 [facility] Comment on above: Performed By: #### C BC #### [facility] [address] [place] [address] Dr. Kamaljit Browning IG % 0.2 % Normal 0.0-0.5 [facility] Comment on above: Performed By: #### C BC #### [facility] [address] [place] [address] Dr. Kamaljit Browning LYMPH # 1.1 103/ul Critically low 1.2-3.8 [facility] Comment on above: Performed By: #### C BC #### [facility] [address] [place] [address] Dr. Kamaljit Browning Lymphocytes/100 WBC (Bld) 18.5 % Critically low 20.5-60.0 [facility] Comment on above: Performed By: #### C BC #### [facility] [address] [place] [address] Dr. Kamaljit Browning MANUAL DIFF REQ NO Normal [facility] Comment on above: Performed By: #### C BC #### [facility] [address] [place] [address] Dr. Kamaljit Browning MCH (RBC) [Entitic mass] 30.5 pg Normal 25.9-34.0 [facility] Comment on above: Performed By: #### C BC #### [facility] [address] [place] [address] Dr. Kamaljit Browning MCHC (RBC) [Mass/Vol] 33.7 g/dL Normal 29.9-35.2 [facility] Comment on above: Performed By: #### C BC #### [facility] [address] [place] [address] Dr. Kamaljit Browning MCV (RBC) [Entitic vol] 90.5 fL Normal 80.0-94.0 [facility] Comment on above: Performed By: #### C BC #### [facility] [address] [place] [address] Dr. Kamaljit Browning MONO # 0.4 103/ul Normal 0.3-0.8 [facility] Comment on above: Performed By: #### C BC #### [facility] [address] [place] [address] Dr. Kamaljit Browning Monocytes/100 WBC (Bld) 7.7 % Normal 1.7-12.0 [facility] Comment on above: Performed By: #### C BC #### [facility] [address] [place] [address] Dr. Kamaljit Browning NEUT # 4.1 103/ul Normal 1.4-6.5 [facility] Comment on above: Performed By: #### C BC #### [facility] [address] [place] [address] Dr. Kamaljit Browning Neutrophils/100 WBC (Bld) 71.7 % Normal 43.0-75.0 [facility] Comment on above: Performed By: #### C BC #### [facility] [address] [place] [address] Dr. Kamaljit Browning Platelet mean volume (Bld) [Entitic vol] 12.9 fL Normal 9.5-13.5 [facility] Comment on above: Performed By: #### C BC #### [facility] [address] [place] [address] Dr. Kamaljit Browning PLT 129 103/ul Critically low 150-450 [facility] Comment on above: Performed By: #### C BC #### [facility] [address] [place], [place] [id number] Dr. Kamaljit Browning RBC 4.33 106/ul Critically low 4.70-6.10 [facility] Comment on above: Performed By: #### C BC #### [facility] [address] [place] [address] Dr. Kamaljit Browning WBC 5.7 103/ul Normal 4.0-11.0 [facility] Comment on above: Performed By: #### C BC #### [facility] [address] [place] [address] Dr. Kamaljit Browning PROF 14(COMP METB)on 022 Albumin [Mass/Vol] 3.9 g/dL Normal 3.4-5.0 [facility] Comment on above: Performed By: #### C MP, BNP #### [facility] [address] [place] [address] Dr. Kamaljit Browning Albumin/Globulin [Mass ratio] 1.2 {ratio} Normal [facility] Comment on above: Performed By: #### C MP, BNP #### [facility] [address] [place] [address] Dr. Kamaljit Brownign ALP [Catalytic activity/Vol] 83 U/L Normal 46-116 [facility] Comment on above: Performed By: #### C MP, BNP #### [facility] [address] [place] [address] Dr. Kamaljit Browning ALT [Catalytic activity/Vol] 30 U/L Normal 16-63 [facility] Comment on above: Performed By: #### C MP, BNP #### [facility] [address] [place] [address] Dr. Kamaljit Browning Anion gap [Moles/Vol] 12.6 mmol/L Normal [facility] Comment on above: Performed By: #### C MP, BNP #### [facility] [address] [place] [address] Dr. Kamaljit Browning AST [Catalytic activity/Vol] 28 U/L Normal 15-37 [facility] Comment on above: Performed By: #### C MP, BNP #### [facility] [address] [place] [address] Dr. Kamaljit Browning Bilirubin [Mass/Vol] 0.6 mg/dL Normal 0.2-1.0 [facility] Comment on above: Performed By: #### C MP, BNP #### [facility] [address] [place] [address] Dr. Kamaljit Browning Calcium [Mass/Vol] 8.9 mg/dL Normal 8.5-10.1 [facility] Comment on above: Performed By: #### C MP, BNP #### [facility] [address] [place] [address] Dr. Kamaljit Browning Chloride [Moles/Vol] 107 mmol/L Normal 98-107 [facility] Comment on above: Performed By: #### C MP, BNP #### [facility] [address] [place] [address] Dr. Kamaljit Browning CO2 [Moles/Vol] 26.4 mmol/L Normal 21.0-32.0 [facility] Comment on above: Performed By: #### C MP, BNP #### [facility] [address] [place] [address] Dr. Kamaljit Browning Creatinine [Mass/Vol] 1.11 mg/dL Normal 0.70-1.30 [facility] Comment on above: Performed By: #### C MP, BNP #### [facility] [address] [place] [address] Dr. Kamaljit Browning EGFR-AF DUTCH >60 Normal >=60 [facility] Comment on above: Performed By: #### C MP, BNP #### [facility] [address] [place] [address] Dr. Kamaljit Browning EGFR-NON AF DUTCH >60 Normal >=60 [facility] Comment on above: Performed By: #### C MP, BNP #### [facility] [address] [place] [address] Dr. Kamaljit Browning Globulin (S) [Mass/Vol] 3.2 g/dL Normal [facility] Comment on above: Performed By: #### C MP, BNP #### [facility] [address] [place] [address] Dr. Kamaljit Browning Glucose [Mass/Vol] 112 mg/dL Critically high 74-106 [facility] Comment on above: Performed By: #### C MP, BNP #### [facility] [address] [place] [address] Dr. Kamaljit Browning Potassium [Moles/Vol] 4.0 mmol/L Normal 3.5-5.1 [facility] Comment on above: Performed By: #### C MP, BNP #### [facility] [address] [place] [address] Dr. Kamaljit Browning Protein [Mass/Vol] 7.1 g/dL Normal 6.4-8.2 [facility] Comment on above: Performed By: #### C MP, BNP #### [facility] [address] [place] [address] Dr. Kamaljit Browning Sodium [Moles/Vol] 142 mmol/L Normal 136-145 [facility] Comment on above: Performed By: #### C MP, BNP #### [facility] [address] [place] [address] Dr. Kamaljit Browning Urea nitrogen [Mass/Vol] 15.0 mg/dL Normal 7.0-18.0 [facility] Comment on above: Performed By: #### C MP, BNP #### [facility] [address] [place] [address] Dr. Kamaljit Browning Urea nitrogen/Creatinine [Mass ratio] 13.5 mg/mg Normal [facility] Comment on above: Performed By: #### C MP, BNP #### [facility] [address] [place] [address] Dr. Kamaljit Browning PROTIMEon 12-26-2021 INR Coag (PPP) [Relative time] 3.98 {INR} Normal [facility] Comment on above: Performed By: #### A 1C #### [facility] [address] [place] [address] Dr. Kamaljit Browning INR GUIDELINES SEE BELOW Normal [facility] Comment on above: Result Comment: NILDA RED INR: 2.0 - 3.0 CONDITIONS NOT LISTED BELOW 2.5 - 3.5 FOR PROSTHETIC HEART VALVE REPLACEMENT 2.5 - 3.5 RECURRENT THROMBOSIS Performed By: #### A 1C #### [facility] [address] [place] [address] Dr. Kamaljit Browning PT Coag (PPP) [Time] 39.3 s Critically high 9.0-11.6 [facility] Comment on above: Performed By: #### A 1C #### [facility] [address] [address] [address] Kamaljit Browning T3, TOTAL (TRIIODOTHYRONINE) on 12-26-2021 T3, TOTAL 67 ng/dL Critically low 71-180 [facility] Comment on above: Performed By: #### C BC #### [facility] [address] [address] [address] Kamaljit Browning US VASCULAR ORG CMPLon [...] LISBET BRANCH Date: 2021-12-26 09:34 Normal [facility] BNPon 12-25-2021 Natriuretic peptide B (Bld) [Mass/Vol] 106.0 pg/mL Normal <=900.0 [facility] Comment on above: Performed By: #### C MP, BNP #### [facility] [address] [address] [address] Kamaljit Browning CARDIAC GABRIELLA 3-6on 2 CK [Catalytic activity/Vol] 98 U/L Normal 39-308 [facility] Comment on above: Performed By: #### C MP, BNP #### [facility] [address] [place] [address] Dr. Kamaljit Browning CK [Catalytic activity/Vol] 92 U/L Normal 39-308 [facility] Comment on above: Performed By: #### C MP, BNP #### [facility] [address] [place] [address] Dr. Kamaljit Browning CK.MB [Mass/Vol] 1.25 ng/mL Normal <=3.60 [facility] Comment on above: Performed By: #### C MP, BNP #### [facility] [address] [place] [address] Dr. Kamaljit Browning CK.MB [Mass/Vol] 1.08 ng/mL Normal <=3.60 [facility] Comment on above: Performed By: #### C MP, BNP #### [facility] [address] [place] [address] Dr. Kamaljit Browning HSTROP 23.6 pg/mL Normal 4.0-76.1 [facility] Comment on above: Result Comment: CUT- OFF POINTS HAVE BEEN ESTABLISHED BASED ON THE FOURTH UNIVERSAL DEFINITIONS OF MYOCARDIAL INFARCTION. THE UPPER REFERENCE LIMIT (URL) OF TROPONIN, DEFINED THE 99TH PERCENTILE OF cTnI DISTRIBUTION IN A REFERENCE POPULATION, HAS BEEN CONFIRMED THE DECISION THRESHOLD FOR MO DIAGNOSIS. Performed By: #### C MP, BNP #### [facility] [address] [place] [address] Dr. Kamaljit Browning HSTROP 21.7 pg/mL Normal 4.0-76.1 [facility] Comment on above: Result Comment: CUT- OFF POINTS HAVE BEEN ESTABLISHED BASED ON THE FOURTH UNIVERSAL DEFINITIONS OF MYOCARDIAL INFARCTION. THE UPPER REFERENCE LIMIT (URL) OF TROPONIN, DEFINED THE 99TH PERCENTILE OF cTnI DISTRIBUTION IN A REFERENCE POPULATION, HAS BEEN CONFIRMED THE DECISION THRESHOLD FOR MO DIAGNOSIS. Performed By: #### C MP, BNP #### [facility] [address] [place] [address] Dr. Kamaljit Browning CARDIAC GABRIELLA ADMITon 06-29-2 022 CK [Catalytic activity/Vol] 105 U/L Normal 39-308 [facility] Comment on above: Performed By: #### C MP, BNP #### [facility] [address] [place] [address] Dr. Kamaljit Browning CK.MB [Mass/Vol] 0.99 ng/mL Normal <=3.60 [facility] Comment on above: Performed By: #### C MP, BNP #### [facility] [address] [place] [address] Dr. Kamaljit Browning HSTROP 24.9 pg/mL Normal 4.0-76.1 [facility] Comment on above: Result Comment: CUT- OFF POINTS HAVE BEEN ESTABLISHED BASED ON THE FOURTH UNIVERSAL DEFINITIONS OF MYOCARDIAL INFARCTION. THE UPPER REFERENCE LIMIT (URL) OF TROPONIN, DEFINED THE 99TH PERCENTILE OF cTnI DISTRIBUTION IN A REFERENCE POPULATION, HAS BEEN CONFIRMED THE DECISION THRESHOLD FOR MO DIAGNOSIS. Performed By: #### C MP, BNP #### [facility] [address] [place] [address] Dr. Kamaljit Browning SANDI 51 ng/mL Normal 16-96 [facility] Comment on above: Performed By: #### C MP, BNP #### [facility] [address] [place] [address] Dr. Kamaljit Browning CBC AUTO DIFFon 12-25-2021 BASO # 0.1 103/ul Normal 0.0-0.1 [facility] Comment on above: Performed By: #### C BC #### [facility] [address] [place] [address] Dr. Kamaljit Browning Basophils/100 WBC (Bld) 0.8 % Normal 0.2-2.0 [facility] Comment on above: Performed By: #### C BC #### [facility] [address] [place] [address] Dr. Kamaljit Browning EO # 0.1 103/ul Normal 0.0-0.7 [facility] Comment on above: Performed By: #### C BC #### [facility] [address] [place] [address] Dr. Kamaljit Browning Eosinophils/100 WBC (Bld) 1.0 % Normal 0.9-7.0 [facility] Comment on above: Performed By: #### C BC #### [facility] [address] [place] [address] Dr. Kamaljit Browning Erythrocyte distribution width (RBC) [Ratio] 12.1 % Normal 11.0-15.0 [facility] Comment on above: Performed By: #### C BC #### [facility] [address] [place] [address] Dr. Kamaljit Browning Hematocrit (Bld) [Volume fraction] 42.2 % Normal 42.0-54.0 [facility] Comment on above: Performed By: #### C BC #### [facility] [address] [place] [address] Dr. Kamaljit Browning Hemoglobin (Bld) [Mass/Vol] 14.2 g/dL Normal 14.0-18.0 [facility] Comment on above: Performed By: #### C BC #### [facility] [address] [place] [address] Dr. Kamaljit Browning IG # 0.02 10e3/ul Normal 0.00-0.03 [facility] Comment on above: Performed By: #### C BC #### [facility] [address] [place] [address] Dr. Kamaljit Browning IG % 0.3 % Normal 0.0-0.5 [facility] Comment on above: Performed By: #### C BC #### [facility] [address] [place] [address] Dr. Kamaljit Browning LYMPH # 0.9 103/ul Critically low 1.2-3.8 [facility] Comment on above: Performed By: #### C BC #### [facility] [address] [place] [address] Dr. Kamaljit Browning Lymphocytes/100 WBC (Bld) 14.7 % Critically low 20.5-60.0 [facility] Comment on above: Performed By: #### C BC #### [facility] [address] [place] [address] Dr. Kamaljit Browning MANUAL DIFF REQ NO Normal [facility] Comment on above: Performed By: #### C BC #### [facility] [address] [address] [address] Kamaljit Browning MCH (RBC) [Entitic mass] 30.4 pg Normal 25.9-34.0 [facility] Comment on above: Performed By: #### C BC #### [facility] [address] [address] [address] Kamaljit Browning MCHC (RBC) [Mass/Vol] 33.6 g/dL Normal 29.9-35.2 [facility] Comment on above: Performed By: #### C BC #### [facility] [address] [address] [address] Kamaljit Browning MCV (RBC) [Entitic vol] 90.4 fL Normal 80.0-94.0 [facility] Comment on above: Performed By: #### C BC #### [facility] [address] [place] [address] Dr. Kamaljit Browning MONO # 0.4 103/ul Normal 0.3-0.8 [facility] Comment on above: Performed By: #### C BC #### [facility] [address] [place] [address] Dr. Kamaljit Browning Monocytes/100 WBC (Bld) 6.5 % Normal 1.7-12.0 [facility] Comment on above: Performed By: #### C BC #### [facility] [address] [place] [address] Dr. Kamaljit Browning NEUT # 4.6 103/ul Normal 1.4-6.5 [facility] Comment on above: Performed By: #### C BC #### [facility] [address] [place] [address] Dr. Kamaljit Browning Neutrophils/100 WBC (Bld) 76.7 % Critically high 43.0-75.0 [facility] Comment on above: Performed By: #### C BC #### [facility] [address] [place] [address] Dr. Kamaljit Browning Platelet mean volume (Bld) [Entitic vol] 12.2 fL Normal 9.5-13.5 [facility] Comment on above: Performed By: #### C BC #### [facility] [address] [address] [address] Kamaljit Browning PLT 120 103/ul Critically low 150-450 [facility] Comment on above: Performed By: #### C BC #### [facility] [address] [address] [address] Kamaljit Browning RBC 4.67 106/ul Critically low 4.70-6.10 [facility] Comment on above: Performed By: #### C BC #### [facility] [address] [address] [address] Kamaljit Browning WBC 6.0 103/ul Normal 4.0-11.0 [facility] Comment on above: Performed By: #### C BC #### [facility] [address] [address] [address] Kamaljit Browning CULTURE URINEon 12-25-2021 CULTURE URINE Culture Observations : NO GROWTH. Normal [facility] Comment on above: Performed By: #### C MP, BNP #### [facility] [address] [address] [address] Kamaljit Browning [facility]-28 SARS-CoV-2 (COVID-19) RNA SOURAV+probe Ql (Unsp spec) Not detected Normal NOT DETECTED [facility] Comment on above: Result Comment: When [...] for this test is supported by the [place] of Health and Human Service's declaration that [...] be used). Performed By: #### C #### [facility] [address] [place] [address] Dr. Kamaljit Browning ECHOCARDIO M/2D COMPLETEon 0 12-25-2021 ECHOCARDIO M/2D COMPLETE Patient: MARTIN WEST Exam Date: 12/25/2021 : 1950 Gender:M Ordering : DR PETRA WOOTEN . Admission #: [id number] Family : DR ALAYNA LANGLEY M.D. Order #: [id number] CLICK HERE TO VIEW EXAM ECHOCARDIOGRAM REPORT [...] Area(A4C): 22.50 cm2 Left Atrium Systolic Volume(A2C): 27295 mm3 Left Atrium Systolic Volume(A4C): 51674 mm3 Mitral Valve MV E to A Ratio: 1 Deceleration Treasure: 5860 mm/s2 Mitral Valve A-Wave Peak Velocity: [...] Reddy M.D. on 12/25/2021 at 16:[address] [facility] MAGNESIUMon 12-25-2021 Magnesium [Mass/Vol] 2.2 mg/dL Normal 1.8-2.4 [facility] Comment on above: Performed By: #### C MP, BNP #### [facility] [address] [place] [address] Dr. Kamaljit Browning PHOSPHORUSon 12-25-2021 Phosphate [Mass/Vol] 3.2 mg/dL Normal 2.6-4.7 [facility] Comment on above: Performed By: #### C MP, BNP #### [facility] [address] [place] [address] Dr. Kamaljit Browning PROF 14(COMP METB)on 022 Albumin [Mass/Vol] 4.4 g/dL Normal 3.4-5.0 [facility] Comment on above: Performed By: #### C MP, BNP #### [facility] [address] [place] [address] Dr. Kamaljit Browning Albumin/Globulin [Mass ratio] 1.2 {ratio} Normal [facility] Comment on above: Performed By: #### C MP, BNP #### [facility] [address] [place] [address] Dr. Kamaljit Browning ALP [Catalytic activity/Vol] 95 U/L Normal 46-116 [facility] Comment on above: Performed By: #### C MP, BNP #### [facility] [address] [place] [address] Dr. Kamaljit Browning ALT [Catalytic activity/Vol] 30 U/L Normal 16-63 [facility] Comment on above: Performed By: #### C MP, BNP #### [facility] [address] [place] [address] Dr. Kamaljit Browning Anion gap [Moles/Vol] 12.0 mmol/L Normal [facility] Comment on above: Performed By: #### C MP, BNP #### [facility] [address] [place] [address] Dr. Kamaljit Browning AST [Catalytic activity/Vol] 27 U/L Normal 15-37 [facility] Comment on above: Performed By: #### C MP, BNP #### [facility] [address] [place] [address] Dr. Kamaljit Browning Bilirubin [Mass/Vol] 0.8 mg/dL Normal 0.2-1.0 [facility] Comment on above: Performed By: #### C MP, BNP #### [facility] [address] [place] [address] Dr. Kamaljit Browning Calcium [Mass/Vol] 9.1 mg/dL Normal 8.5-10.1 [facility] Comment on above: Performed By: #### C MP, BNP #### [facility] [address] [place] [address] Dr. Kamaljit Browning Chloride [Moles/Vol] 107 mmol/L Normal 98-107 [facility] Comment on above: Performed By: #### C MP, BNP #### [facility] [address] [place] [address] Dr. Kamaljit Browning CO2 [Moles/Vol] 27.6 mmol/L Normal 21.0-32.0 [facility] Comment on above: Performed By: #### C MP, BNP #### [facility] [address] [place] [address] Dr. Kamaljit Browning Creatinine [Mass/Vol] 1.01 mg/dL Normal 0.70-1.30 [facility] Comment on above: Performed By: #### C MP, BNP #### [facility] [address] [place] [address] Dr. Kamaljit Browning EGFR-AF DUTCH >60 Normal >=60 [facility] Comment on above: Performed By: #### C MP, BNP #### [facility] [address] [place] [address] Dr. Kamaljit Browning EGFR-NON AF DUTCH >60 Normal >=60 [facility] Comment on above: Performed By: #### C MP, BNP #### [facility] [address] [place] [address] Dr. Kamaljit Browning Globulin (S) [Mass/Vol] 3.6 g/dL Normal [facility] Comment on above: Performed By: #### C MP, BNP #### [facility] [address] [place] [address] Dr. Kamaljit Browning Glucose [Mass/Vol] 123 mg/dL Critically high 74-106 T [facility] Comment on above: Performed By: #### C MP, BNP #### [facility] [address] [place] [address] Dr. Kamaljit Browning Potassium [Moles/Vol] 4.6 mmol/L Normal 3.5-5.1 [facility] Comment on above: Performed By: #### C MP, BNP #### [facility] [address] [place] [address] Dr. Kamaljit Browning Protein [Mass/Vol] 8.0 g/dL Normal 6.4-8.2 [facility] Comment on above: Performed By: #### C MP, BNP #### [facility] [address] [place] [address] Dr. Kamaljit Browning Sodium [Moles/Vol] 142 mmol/L Normal 136-145 [facility] Comment on above: Performed By: #### C MP, BNP #### [facility] [address] [place] [address] Dr. Kamaljit Browning Urea nitrogen [Mass/Vol] 12.0 mg/dL Normal 7.0-18.0 [facility] Comment on above: Performed By: #### C MP, BNP #### [facility] [address] [place] [address] Dr. Kamaljit Browning Urea nitrogen/Creatinine [Mass ratio] 11.9 mg/mg Normal [facility] Comment on above: Performed By: #### C MP, BNP #### [facility] [address] [place] [address] Dr. Kamaljit Browning PROTIMEon 12-25-2021 INR Coag (PPP) [Relative time] 3.75 {INR} Normal [facility] Comment on above: Performed By: #### P T, PTT #### [facility] [address] [place] [address] Dr. Kamaljit Browning INR GUIDELINES SEE BELOW Normal [facility] Comment on above: Result Comment: NILDA RED INR: 2.0 - 3.0 CONDITIONS NOT LISTED BELOW 2.5 - 3.5 FOR PROSTHETIC HEART VALVE REPLACEMENT 2.5 - 3.5 RECURRENT THROMBOSIS Performed By: #### P T, PTT #### [facility] [address] [place] [address] Dr. Kamaljit Browning PT Coag (PPP) [Time] 37.1 s Critically high 9.0-11.6 [facility] Comment on above: Performed By: #### P T, PTT #### [facility] [address] [place] [address] Dr. Kamaljit Browning PTTon 12-25-2021 aPTT Coag (Bld) [Time] 55.4 s Critically high 22.3-36.2 [facility] Comment on above: Performed By: #### P T, PTT #### [facility] [address] [place] [address] Dr. Kamaljit Browning T4on 12-25-2021 T4 [Mass/Vol] 8.90 ug/dL Normal 4.50-12.10 [facility] Comment on above: Performed By: #### C MP, BNP #### [facility] [address] [place] [address] Dr. Kamaljit Browning TSHon 12-25-2021 TSH 0.778 uIU/mL Normal 0.358-3.740 [facility] Comment on above: Performed By: #### C MP, BNP #### [facility] [address] [place] [address] Dr. Kamaljit Browning UA RANDOM W/MICROSCOPICon BACTERIA NONE SEEN Normal NONE SEEN [facility] Comment on above: Performed By: #### A 1C #### [facility] [address] [place] [address] Dr. Kamaljit Browning Bilirubin Ql (U) Negative Normal NEGATIVE [facility] Comment on above: Performed By: #### A 1C #### [facility] [address] [place] [address] Dr. Kamaljit Browning CAST NONE SEEN Normal NONE SEEN [facility] Comment on above: Performed By: #### A 1C #### [facility] [address] [place] [address] Dr. Kamaljit Browning Clarity (U) CLEAR Normal CLEAR [facility] Comment on above: Performed By: #### A 1C #### [facility] [address] [place] [address] Dr. Kamaljit Browning Color (U) LT. YELLOW Normal YELLOW [facility] Comment on above: Performed By: #### A 1C #### [facility] [address] [place] [address] Dr. Kamaljit Browning Crystals LM Nom (Urine sed) NONE SEEN Normal NONE SEEN [facility] Comment on above: Performed By: #### A 1C #### [facility] [address] [place] [address] Dr. Kamaljit Browning Epithelial cells LM Ql (Urine sed) NONE SEEN Normal NONE SEEN /RARE [facility] Comment on above: Performed By: #### A 1C #### [facility] [address] [place] [address] Dr. Kamaljit Browning Glucose Ql (U) Negative Normal NEGATIVE [facility] Comment on above: Performed By: #### A 1C #### [facility] [address] [place] [address] Dr. Kamaljit Browning Hemoglobin Ql (U) Negative Normal NEGATIVE [facility] Comment on above: Performed By: #### A 1C #### [facility] [address] [place] [address] Dr. Kamaljit Browning Ketones Ql (U) Negative Normal NEGATIVE [facility] Comment on above: Performed By: #### A 1C #### [facility] [address] [place] [address] Dr. Kamaljit Browning LEUKOCYTES Negative Normal NEGATIVE [facility] Comment on above: Performed By: #### A 1C #### [facility] [address] [place] [address] Dr. Kamaljit Browning MUCOUS NONE SEEN Normal NONE SEEN [facility] Comment on above: Performed By: #### A 1C #### [facility] [address] [place] [address] Dr. Kamaljit Browning Nitrite Ql (U) Negative Normal NEGATIVE [facility] Comment on above: Performed By: #### A 1C #### [facility] [address] [place] [address] Dr. Kamaljit Browning pH (U) 6.0 [pH] Normal 5-9 [facility] Comment on above: Performed By: #### A 1C #### [facility] [address] [place] [address] Dr. Kamaljit Browning RBC NONE SEEN Abnormal 0-2 [facility] Comment on above: Performed By: #### A 1C #### [facility] [address] [place] [address] Dr. Kamaljit Browning SPEC GRAVITY 1.010 Normal 1.005-<=1.025 [facility] Comment on above: Performed By: #### A 1C #### [facility] [address] [place] [address] Dr. Kamaljit Browning UA PROTEIN Negative Normal NEGATIVE/ TRACE [facility] Comment on above: Performed By: #### A 1C #### [facility] [address] [place] [address] Dr. Kamaljit Browning Urobilinogen Qn (U) 0.2 {Mari'U}/dL Normal 0.2 - 1. 0 [facility] Comment on above: Performed By: #### A 1C #### [facility] [address] [place] [address] Dr. Kamaljit Browning WBC NONE SEEN Normal NONE SEEN [facility] Comment on above: Performed By: #### A 1C #### [facility] [address] [place] [address] Dr. Kamaljit Browning CBC AUTO DIFFon 12-18-2021 BASO # 0.0 103/ul Normal 0.0-0.1 [facility] Comment on above: Performed By: #### C BC #### [facility] [address] [place] [address] Dr. Kamaljit Browning Basophils/100 WBC (Bld) 0.6 % Normal 0.2-2.0 [facility] Comment on above: Performed By: #### C BC #### [facility] [address] [place] [address] Dr. Kamaljit Browning EO # 0.1 103/ul Normal 0.0-0.7 [facility] Comment on above: Performed By: #### C BC #### [facility] [address] [place] [address] Dr. Kamaljit Browning Eosinophils/100 WBC (Bld) 1.1 % Normal 0.9-7.0 [facility] Comment on above: Performed By: #### C BC #### [facility] [address] [place] [address] Dr. Kamaljit Browning Erythrocyte distribution width (RBC) [Ratio] 12.5 % Normal 11.0-15.0 [facility] Comment on above: Performed By: #### C BC #### [facility] [address] [place] [address] Dr. Kamaljit Browning Hematocrit (Bld) [Volume fraction] 40.5 % Critically low 42.0-54.0 [facility] Comment on above: Performed By: #### C BC #### [facility] [address] [place] [address] Dr. Kamaljit Browning Hemoglobin (Bld) [Mass/Vol] 13.5 g/dL Critically low 14.0-18.0 [facility] Comment on above: Performed By: #### C BC #### [facility] [address] [place] [address] Dr. Kamaljit Browning IG # 0.02 10e3/ul Normal 0.00-0.03 [facility] Comment on above: Performed By: #### C BC #### [facility] [address] [place] [address] Dr. Kamaljit Browning IG % 0.3 % Normal 0.0-0.5 [facility] Comment on above: Performed By: #### C BC #### [facility] [address] [place] [address] Dr. Kamaljit Browning LYMPH # 1.0 103/ul Critically low 1.2-3.8 [facility] Comment on above: Performed By: #### C BC #### [facility] [address] [place] [address] Dr. Kamaljit Brownnig Lymphocytes/100 WBC (Bld) 14.8 % Critically low 20.5-60.0 [facility] Comment on above: Performed By: #### C BC #### [facility] [address] [place] [address] Dr. Kamaljit Browning MANUAL DIFF REQ NO Normal [facility] Comment on above: Performed By: #### C BC #### [facility] [address] [place] [address] Dr. Kamaljit Browning MCH (RBC) [Entitic mass] 30.3 pg Normal 25.9-34.0 [facility] Comment on above: Performed By: #### C BC #### [facility] [address] [place] [address] Dr. Kamaljit Browning MCHC (RBC) [Mass/Vol] 33.3 g/dL Normal 29.9-35.2 [facility] Comment on above: Performed By: #### C BC #### [facility] [address] [place] [address] Dr. Kamaljit Browning MCV (RBC) [Entitic vol] 91.0 fL Normal 80.0-94.0 [facility] Comment on above: Performed By: #### C BC #### [facility] [address] [place] [address] Dr. Kamaljit Browning MONO # 0.6 103/ul Normal 0.3-0.8 [facility] Comment on above: Performed By: #### C BC #### [facility] [address] [place] [address] Dr. Kamaljit Browning Monocytes/100 WBC (Bld) 9.0 % Normal 1.7-12.0 [facility] Comment on above: Performed By: #### C BC #### [facility] [address] [place] [address] Dr. Kamaljit Browning NEUT # 5.2 103/ul Normal 1.4-6.5 [facility] Comment on above: Performed By: #### C BC #### [facility] [address] [place] [address] Dr. Kamaljit Browning Neutrophils/100 WBC (Bld) 74.2 % Normal 43.0-75.0 [facility] Comment on above: Performed By: #### C BC #### [facility] [address] [address] [address] Kamaljit Browning Platelet mean volume (Bld) [Entitic vol] 12.7 fL Normal 9.5-13.5 [facility] Comment on above: Performed By: #### C BC #### [facility] [address] [address] [address] Kamaljit Browning PLT 114 103/ul Critically low 150-450 [facility] Comment on above: Performed By: #### C BC #### [facility] [address] [address] [address] Kamaljit Browning RBC 4.45 106/ul Critically low 4.70-6.10 [facility] Comment on above: Performed By: #### C BC #### [facility] [address] [place] [address] Dr. Kamaljit Browning WBC 7.0 103/ul Normal 4.0-11.0 [facility] Comment on above: Performed By: #### C BC #### [facility] [address] [place] [address] Dr. Kamaljit Browning MAGNESIUMon 12-18-2021 Magnesium [Mass/Vol] 2.1 mg/dL Normal 1.8-2.4 [facility] Comment on above: Performed By: #### C BC #### [facility] [address] [place] [address] Dr. Kamaljit Browning PROF CHEM 8 (BAS METB)on Anion gap [Moles/Vol] 13.2 mmol/L Normal [facility] Comment on above: Performed By: #### C BC #### [facility] [address] [place] [address] Dr. Kamaljit Browning Calcium [Mass/Vol] 8.7 mg/dL Normal 8.5-10.1 [facility] Comment on above: Performed By: #### C BC #### [facility] [address] [place] [address] Dr. Kamaljit Browning Chloride [Moles/Vol] 108 mmol/L Critically high 98-107 [facility] Comment on above: Performed By: #### C BC #### [facility] [address] [address] [address] Kamaljit Browning CO2 [Moles/Vol] 25.7 mmol/L Normal 21.0-32.0 [facility] Comment on above: Performed By: #### C BC #### [facility] [address] [address] [address] Kamaljit Browning Creatinine [Mass/Vol] 1.10 mg/dL Normal 0.70-1.30 [facility] Comment on above: Performed By: #### C BC #### [facility] [address] [address] [address] Kamaljit Browning EGFR-AF DUTCH >60 Normal >=60 [facility] Comment on above: Performed By: #### C BC #### [facility] [address] [address] [address] Kamaljit Browning EGFR-NON AF DUTCH >60 Normal >=60 [facility] Comment on above: Performed By: #### C BC #### [facility] [address] [address] [address] Kamaljit Browning Glucose [Mass/Vol] 118 mg/dL Critically high 74-106 [facility] Comment on above: Performed By: #### C BC #### [facility] [address] [address] [address] Kamaljit Browning Potassium [Moles/Vol] 3.9 mmol/L Normal 3.5-5.1 [facility] Comment on above: Performed By: #### C BC #### [facility] [address] [address] [address] Kamaljit Browning Sodium [Moles/Vol] 143 mmol/L Normal 136-145 [facility] Comment on above: Performed By: #### C BC #### [facility] [address] [address] [address] Kamaljit Browning Urea nitrogen [Mass/Vol] 12.0 mg/dL Normal 7.0-18.0 [facility] Comment on above: Performed By: #### C BC #### [facility] [address] [place] [address] Dr. Kamaljit Browning Urea nitrogen/Creatinine [Mass ratio] 10.9 mg/mg Normal [facility] Comment on above: Performed By: #### C BC #### [facility] [address] [place] [address] Dr. Kamaljit Browning PROTIMEon 12-18-2021 INR Coag (PPP) [Relative time] 2.47 {INR} Normal [facility] Comment on above: Performed By: #### C MP, BNP #### [facility] [address] [place] [address] Dr. Kamaljit Browning INR GUIDELINES SEE BELOW Normal [facility] Comment on above: Result Comment: NILDA RED INR: 2.0 - 3.0 CONDITIONS NOT LISTED BELOW 2.5 - 3.5 FOR PROSTHETIC HEART VALVE REPLACEMENT 2.5 - 3.5 RECURRENT THROMBOSIS Performed By: #### C MP, BNP #### [facility] [address] [place] [address] Dr. Kamaljit Browning PT Coag (PPP) [Time] 25.1 s Critically high 9.0-11.6 [facility] Comment on above: Performed By: #### C MP, BNP #### [facility] [address] [place] [address] Dr. Kamaljit Browning TSHon 12-18-2021 TSH 1.850 uIU/mL Normal 0.358-3.740 [facility] Comment on above: Performed By: #### C BC #### [facility] [address] [place] [address] Dr. Kamaljit Browning BNPon 12-17-2021 Natriuretic peptide B (Bld) [Mass/Vol] 50.0 pg/mL Normal <=900.0 [facility] Comment on above: Performed By: #### A 1C #### [facility] [address] [place] [address] Dr. Kamaljit Browning CBC AUTO DIFFon 12-17-2021 BASO # 0.1 103/ul Normal 0.0-0.1 [facility] Comment on above: Performed By: #### C BC #### [facility] [address] [place] [address] Dr. Kamaljit Browning Basophils/100 WBC (Bld) 1.0 % Normal 0.2-2.0 [facility] Comment on above: Performed By: #### C BC #### [facility] [address] [place] [address] Dr. Kamaljit Browning EO # 0.1 103/ul Normal 0.0-0.7 [facility] Comment on above: Performed By: #### C BC #### [facility] [address] [place] [address] Dr. Kamaljit Browning Eosinophils/100 WBC (Bld) 1.2 % Normal 0.9-7.0 [facility] Comment on above: Performed By: #### C BC #### [facility] [address] [place] [address] Dr. Kamaljit Browning Erythrocyte distribution width (RBC) [Ratio] 12.4 % Normal 11.0-15.0 [facility] Comment on above: Performed By: #### C BC #### [facility] [address] [place] [address] Dr. Kamaljit Browning Hematocrit (Bld) [Volume fraction] 43.8 % Normal 42.0-54.0 [facility] Comment on above: Performed By: #### C BC #### [facility] [address] [place] [address] Dr. Kamaljit Browning Hemoglobin (Bld) [Mass/Vol] 14.4 g/dL Normal 14.0-18.0 [facility] Comment on above: Performed By: #### C BC #### [facility] [address] [place] [address] Dr. Kamaljit Browning IG # 0.02 10e3/ul Normal 0.00-0.03 [facility] Comment on above: Performed By: #### C BC #### [facility] [address] [place] [address] Dr. Kamaljit Browning IG % 0.3 % Normal 0.0-0.5 [facility] Comment on above: Performed By: #### C BC #### [facility] [address] [place], [place] [id number] Dr. Kamaljit Browning LYMPH # 1.1 103/ul Critically low 1.2-3.8 [facility] Comment on above: Performed By: #### C BC #### [facility] [address] [place] [address] Dr. Kamaljit Browning Lymphocytes/100 WBC (Bld) 18.5 % Critically low 20.5-60.0 [facility] Comment on above: Performed By: #### C BC #### [facility] [address] [place] [address] Dr. Kamaljit Browning MANUAL DIFF REQ NO Normal [facility] Comment on above: Performed By: #### C BC #### [facility] [address] [place] [address] Dr. Kamaljit Browning MCH (RBC) [Entitic mass] 30.2 pg Normal 25.9-34.0 [facility] Comment on above: Performed By: #### C BC #### [facility] [address] [place] [address] Dr. Kamaljit Browning MCHC (RBC) [Mass/Vol] 32.9 g/dL Normal 29.9-35.2 [facility] Comment on above: Performed By: #### C BC #### [facility] [address] [place] [address] Dr. Kamalijt Browning MCV (RBC) [Entitic vol] 91.8 fL Normal 80.0-94.0 [facility] Comment on above: Performed By: #### C BC #### [facility] [address] [place] [address] Dr. Kamaljit Browning MONO # 0.4 103/ul Normal 0.3-0.8 [facility] Comment on above: Performed By: #### C BC #### [facility] [address] [place] [address] Dr. Kamaljit Browning Monocytes/100 WBC (Bld) 7.4 % Normal 1.7-12.0 [facility] Comment on above: Performed By: #### C BC #### [facility] [address] [place] [address] Dr. Kamaljit Browning NEUT # 4.1 103/ul Normal 1.4-6.5 [facility] Comment on above: Performed By: #### C BC #### [facility] [address] [place] [address] Dr. Kamaljit Browning Neutrophils/100 WBC (Bld) 71.6 % Normal 43.0-75.0 [facility] Comment on above: Performed By: #### C BC #### [facility] [address] [place] [address] Dr. Kamaljit Browning Platelet mean volume (Bld) [Entitic vol] 12.4 fL Normal 9.5-13.5 [facility] Comment on above: Performed By: #### C BC #### [facility] [address] [place] [address] Dr. Kamaljit Browning PLT 111 103/ul Critically low 150-450 [facility] Comment on above: Performed By: #### C BC #### [facility] [address] [place] [address] Dr. Kamaljit Browning RBC 4.77 106/ul Normal 4.70-6.10 [facility] Comment on above: Performed By: #### C BC #### [facility] [address] [place] [address] Dr. Kamaljit Browning WBC 5.8 103/ul Normal 4.0-11.0 [facility] Comment on above: Performed By: #### C BC #### [facility] [address] [place] [address] Dr. Kamaljit Browning Covid-19 PCR ([facility])on 11-28 SARS-CoV-2 (COVID-19) RNA SOURAV+probe Ql (Unsp spec) Not detected Normal NOT DETECTED [facility] Comment on above: Result Comment: When [...] for this test is supported by the [place] of Health and Human Service's declaration that [...] Performed By: #### C MP, BNP #### [facility] [address] [place] [address] Dr. Kamaljit Browning PROF 14(COMP METB)on 022 Albumin [Mass/Vol] 4.3 g/dL Normal 3.4-5.0 [facility] Comment on above: Performed By: #### A 1C #### [facility] [address] [place] [address] Dr. Kamaljit Browning Albumin/Globulin [Mass ratio] 1.2 {ratio} Normal [facility] Comment on above: Performed By: #### A 1C #### [facility] [address] [place] [address] Dr. Kamaljit Browning ALP [Catalytic activity/Vol] 115 U/L Normal 46-116 [facility] Comment on above: Performed By: #### A 1C #### [facility] [address] [place] [address] Dr. Kamaljit Browning ALT [Catalytic activity/Vol] 35 U/L Normal 16-63 [facility] Comment on above: Performed By: #### A 1C #### [facility] [address] [place] [address] Dr. Kamaljit Browning Anion gap [Moles/Vol] 15.0 mmol/L Normal [facility] Comment on above: Performed By: #### A 1C #### [facility] [address] [place] [address] Dr. Kamaljit Browning AST [Catalytic activity/Vol] 26 U/L Normal 15-37 [facility] Comment on above: Performed By: #### A 1C #### [facility] [address] [place] [address] Dr. Kamaljit Browning Bilirubin [Mass/Vol] 0.5 mg/dL Normal 0.2-1.0 [facility] Comment on above: Performed By: #### A 1C #### [facility] [address] [address] [address] Kamaljit Browning Calcium [Mass/Vol] 8.6 mg/dL Normal 8.5-10.1 [facility] Comment on above: Performed By: #### A 1C #### [facility] [address] [address] [address] Kamaljit Browning Chloride [Moles/Vol] 106 mmol/L Normal 98-107 [facility] Comment on above: Performed By: #### A 1C #### [facility] [address] [address] [address] Kamaljit Browning CO2 [Moles/Vol] 24.0 mmol/L Normal 21.0-32.0 [facility] Comment on above: Performed By: #### A 1C #### [facility] [address] [address] [address] Kamaljit Browning Creatinine [Mass/Vol] 1.02 mg/dL Normal 0.70-1.30 [facility] [facility] Comment on above: Performed By: #### A 1C #### [facility] [address] [place] [address] Dr. Kamaljit Browning EGFR-AF DUTCH >60 Normal >=60 [facility] Comment on above: Performed By: #### A 1C #### [facility] [address] [address] [address] Kamaljit Browning EGFR-NON AF DUTCH >60 Normal >=60 [facility] Comment on above: Performed By: #### A 1C #### [facility] [address] [address] [address] Kamaljit Browning Globulin (S) [Mass/Vol] 3.5 g/dL Normal [facility] Comment on above: Performed By: #### A 1C #### [facility] [address] [address] [address] Kamaljit Browning Glucose [Mass/Vol] 138 mg/dL Critically high 74-106 T [facility] Comment on above: Performed By: #### A 1C #### [facility] [address] [address] [address] Kamaljit Browinng Potassium [Moles/Vol] 4.0 mmol/L Normal 3.5-5.1 [facility] Comment on above: Performed By: #### A 1C #### [facility] [address] [address] [address] Kamaljit Browning Protein [Mass/Vol] 7.8 g/dL Normal 6.4-8.2 [facility] Comment on above: Performed By: #### A 1C #### [facility] [address] [address] [address] Kamaljit Browning Sodium [Moles/Vol] 141 mmol/L Normal 136-145 [facility] Comment on above: Performed By: #### A 1C #### [facility] [address] [address] [address] Kamaljit Browning Urea nitrogen [Mass/Vol] 13.0 mg/dL Normal 7.0-18.0 [facility] Comment on above: Performed By: #### A 1C #### [facility] [address] [address] [address] Kamaljit Browning Urea nitrogen/Creatinine [Mass ratio] 12.7 mg/mg Normal [facility] Comment on above: Performed By: #### A 1C #### [facility] [address] [address] [address] Kamaljit Browning TROPONIN, HIGH SENSITIVITYon 12-17-2021 HSTROP 11.1 pg/mL Normal 4.0-76.1 [facility] Comment on above: Result Comment: CUT- OFF POINTS HAVE BEEN ESTABLISHED BASED ON THE FOURTH UNIVERSAL DEFINITIONS OF MYOCARDIAL INFARCTION. THE UPPER REFERENCE LIMIT (URL) OF TROPONIN, DEFINED THE 99TH PERCENTILE OF cTnI DISTRIBUTION IN A REFERENCE POPULATION, HAS BEEN CONFIRMED THE DECISION THRESHOLD FOR MO DIAGNOSIS. Performed By: #### A 1C #### [facility] [address] [place] [address] Dr. Kamaljit Browning Social History Date Type Detail Facility Start: 03-18-2023 Tobacco smoking status Ex-smoker (fi nding) [facility] Tobacco smoking status Never [facility] [place] Sex Assigned At Male [facility] Vital Signs Date Time Vital Sign Value Performing Clinician Perez ortiz 03-18-2023 14:09-0400 Blood Pressure Location [place] [facility] 03-18-2023 14:09-0400 Diastolic blood pressure 86 mm[Hg] [facility] 03-18-2023 14:09-0400 Heart rate 70 /min [facility] 03-18-2023 14:09-0400 Respiratory rate 16 /min 9[facility] 03-18-2023 14:09-0400 Systolic blood pressure 130 mm[Hg] [place] [facility] Functional Status Date Assessment Result Facility 03-18-2023 Functional Status N/A [facility] Clinical Note 04-01-2023 Note Date & Type Note Facility 04-01-2023 Note [id number] #[id number] Kiana from [facility] med management called stating he is ok to hold coumadin 4 days before procedure and will not need bridged, she will call pt tp inform him [facility] Comment on above: Result Comment: Elec tronically Signed By: Norma Barajas\.devan\Date and Time Signed: 04/01/23 11:59 EDT Clinical [...] held; Unasyn preop for SBE prophylaxis. 2. 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 [facility] Comment on above: Result Comment: Elec tronically Signed By: BENSON RODRIGUES, Leo Monae\Date and Time Signed: 03/18/23 14:47 EDT Progress note 03-18-2023 Note Date & Type Note Facility 03-18-2023 Note [facility] Note Chief Complaint: Patient here [...] - MILD I25.10: Atherosclerotic heart disease of [place] coronary artery without angina pectoris 3. Essential [...] problems arise Alayna Langley MD, MPH, FACC, [facility] [place], [facility] Interventional Cardiology Pager Email: [email or web address] Evaluation + Plan note Note Date & Type Note Facility Evaluation + Plan note No data available for this section General [facility] Discharge instructions Note Date & Type Note Facility Hospital Discharge instructions No data available for this section General [facility] [place] Progress note Note Date & Type Note Facility Progress note No data available for this section General [facility] [place] Summary Purpose Family History No Family History [...] DATE CREATED AUTHOR 12/05/2022 [facility] DATE CREATED AUTHOR AUTHOR'S ORGANIZ ATION 03/20/2023 [facility] DATE CREATED AUTHOR AUTHOR'S ORGANIZ ATION 04/28/2023 [facility] Patient Care team informatio n (unrecognized section and content) Personnel Name: Petra Wooten MD Address: Address: [address] [place] [address] FOR RECORDS PERTAINING TO PATIENTS WHO ARE [...] BE BASED ON THE PRIMARY CLINICAL RECORDS. [facility] [employer] provides no warranty or guarantee of the accuracy or completeness of information in this document.
[2024-01-11 17:10] LABS: Basophils Absolute Auto 0.1 10^3/uL (0.0-0.1); Basophils Percent Auto 0.9 % (0.2-2.0); Eosinophils Absolute Auto 0.1 10^3/uL (0.0-0.7); Eosinophils Percent Auto 1.4 % (0.9-7.0); Hematocrit 38.5 % (42.0-54.0); Hemoglobin 12.7 g/dL (14.0-18.0); Immature Granulocytes Abs Auto 0.04 10^3/uL (0.00-0.03); Immature Granulocytes Pct Auto 0.7 % (0.0-0.5); Lymphocytes Absolute Auto 1.1 10^3/uL (1.2-3.8); Mean Corpuscular Hemoglobin 30.7 pg (25.9-34.0); Mean Platelet Volume 12.4 fL (9.5-13.5); Monocytes Absolute Auto 0.4 10^3/uL (0.3-0.8); Monocytes Percent Auto 7.5 % (1.7-12.0); Neutrophils Absolute Auto 4.1 10^3/uL (1.4-6.5); Neutrophils Percent Auto 70.5 % (43.0-75.0); Platelet Count 121 10^3/uL (150-450); Red Blood Count 4.14 10^6/uL (4.70-6.10); Red Cell Distribution Width 12.3 % (11.0-15.0); White Blood Count 5.8 10^3/uL (4.0-11.0)
[2024-01-11 17:31] LABS: Alanine Aminotransferase 39 U/L (16-63); Albumin Globulin Ratio 1.3; Alkaline Phosphatase 97 U/L (46-116); Anion Gap 13.5; Aspartate Amino Transferase 27 U/L (15-37); BUN Creatinine Ratio 14.4; Bilirubin Total 0.4 mg/dL (0.2-1.0); Calcium 8.6 mg/dL (8.5-10.1); Carbon Dioxide 27.9 mmol/L (21.0-32.0); Chloride 106 mmol/L (98-107); Estimated GFR (African America >60 (>=60); Estimated GFR (Non-African Ame 50 (>=60); Globulin 3.2 g/dL; Glucose 130 mg/dL (74-106); Potassium 4.4 mmol/L (3.5-5.1); Sodium 143 mmol/L (136-145); Thyroid Stimulating Hormone 1.923 uIU/mL (0.358-3.740); Total Protein 7.2 g/dL (6.4-8.2)
[2024-01-11 18:07] LABS: Free T4 0.99 ng/dL (0.76-1.46)
== END 2024-01-11 16:36 | disposition home or self-care (01) ==
LOC: LAB 16:38
PROVIDERS: PCP Family Medicine; Visit Provider Family Medicine
DX: I10 Essential (primary) hypertension (principal)
CPT/HCPCS: 36415; 80053; 83880; 84439; 84443; 85025

== ENCOUNTER 2024-01-12 12:54 | Outpatient (OUT) | payer MEDICARE, SELFPAY ==
--- OUTSIDE RECORDS SUMMARY | 2024-01-12 13:01 | XMS_ITS | CCD ---
Author Organization [facility] Care Team Providers Care Shank Breaker Name Role Phone EMANUEL ., DR LAMBERT [...] HOY ., DR LAMBERT Primary Care Unavailable SHAIKH Juan Luis HENDERSON Attending Unavailable EMANUEL ., DR LAMBERT Primary Care Unavailable JACKIE, DR AMBROSIO Boggs Consulting Unavailabl e JACKIE, DR AMBROSIO Boggs [...] Unavailable HOY ., DR LAMBERT Attending Unavailable BROCK, DR LISBET Santamaria Consulting Unavailable GAGE CARTER Consulting Unavailable HOY ., DR LAMBERT Primary Care Unavailable HOY ., DR LAMBERT Admitting Unavailable HOY ., DR LAMBERT Consulting Unavailable HOY ., DR LAMBERT Attending Unavailable HOY ., DR LAMBERT Primary Care Unavailable ELTAGINOY, DR FLEMING Consulting Unavailable ELTAHAWY, DR FLEMING Attending Unavailable ELMP, DR FLEMING Admitting Unavailable Petra Wooten Primary Care Physician ALAYNA LANGLEY Attending Unavailable Leo TATE Attending Unavailable Leo TATE Attending Unavailable Allergies Allergy Classification Reported Allergen(s) Allergy Type Date of Onset Reaction(s) Facility (1 source) No Known Medication Allergies; Translations: [No Known Medication Allergies] Propensity to adverse reactions (disorder) [facility] Repository Medications Current Medications Medication Drug Class(es) Dates [...] Refills(s) 0 Start Date: 03/13/23 Status: Ordered Problems Active Problems Problem Classification Problem Date [...] Onset: 01-01-2022 Episodic Other aftercare (1 source) [facility] (current) use of anticoagulants; Translations: [BOOK ILLUSTRATOR CURRNT USE ANTICOAGULANTS] Onset: 11-26-2022 Episodic Other aftercare (2 sources) Long-term current use of anticoagulant; Translations: [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] Onset: 03-18-2023 Episodic [...] 06-08-2022 Episodic Other aftercare (1 source) Other supervisor intermediates (current) drug therapy; Translations: [OTH USP CURRENT DRUG THERAPY] Onset: 06-11-2022 Episodic Other aftercare (1 source) [facility] (current) use of aspirin; Translations: [USP CURRENT USE OF ASPIRIN] Onset: 01-01-2022 Episodic [...] [CONTACT W/AND (SUSP) EXPOS COVID-19] Onset: 06-02-2022 Results Test Name Value Interpretation Reference Range Facility Outside Colonoscopyon 2022 Outside Colonoscopy [id number] .00TIFF [facility] Reminderson 04-09-2023 Reminders - From: Karlene Stewart LPN To: N - Clinical; Sent: 04/09/2023 10:49:10 EDT Show up: 03/09/2033 07:00:00 EDT Subject: colonoscopy recall Due Date/Time: 04/08/2033 07:00:00 EDT Reminder/Recall Patient due for screening colonoscopy 04/08/2033. 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 Nicotine dependence Normal [facility] Office Visiton 03-18-2023 Follow-up visit [id number] Martin West 1950 M Date Provider Department Center 03/18/2023 271-ALAYNA LANGLEY [facility] No family history on file Level of Service:35725 MA OFFICE/OUTPATIENT ESTABLISHED LOW MDM 20-29 MIN Normal [facility] Physician Referralon 023 Physician Referral [id number]. 00CD:127 Normal [facility] INSULINon 11-15-2022 Insulin 20.3 uIU/mL Normal 2.6-24.9 [facility] Comment on above: Performed By: #### I NSULIN #### [facility] [address] [place] [address] Dr. Kamaljit Browning CBC AUTO DIFFon 11-14-2022 BASO # 0.0 103/ul Normal 0.0-0.1 [facility] Comment on above: Performed By: #### C MP, BNP #### [facility] [address] [place] [address] Dr. Kamaljit Browning Basophils/100 WBC (Bld) 0.8 % Normal 0.2-2.0 [facility] Comment on above: Performed By: #### C MP, BNP #### [facility] [address] [place] [address] Dr. Kamaljit Browning EO # 0.1 103/ul Normal 0.0-0.7 [facility] Comment on above: Performed By: #### C MP, BNP #### [facility] [address] [place] [address] Dr. Kamaljit Browning Eosinophils/100 WBC (Bld) 1.7 % Normal 0.9-7.0 [facility] Comment on above: Performed By: #### C MP, BNP #### [facility] [address] [place] [address] Dr. Kamaljit Browning Erythrocyte distribution width (RBC) [Ratio] 12.7 % Normal 11.0-15.0 [facility] Comment on above: Performed By: #### C MP, BNP #### [facility] [address] [place] [address] Dr. Kamaljit Browning Hematocrit (Bld) [Volume fraction] 38.4 % Critically low 42.0-54.0 [facility] Comment on above: Performed By: #### C MP, BNP #### [facility] [address] [place] [address] Dr. Kamaljit Browning Hemoglobin (Bld) [Mass/Vol] 12.8 g/dL Critically low 14.0-18.0 [facility] Comment on above: Performed By: #### C MP, BNP #### [facility] [address] [place] [address] Dr. Kamaljit Browning IG # 0.02 10e3/ul Normal 0.00-0.03 [facility] Comment on above: Performed By: #### C MP, BNP #### [facility] [address] [place] [address] Dr. Kamaljit Browning IG % 0.4 % Normal 0.0-0.5 [facility] Comment on above: Performed By: #### C MP, BNP #### [facility] [address] [address] [address] Kamaljit Browning LYMPH # 0.8 103/ul Critically low 1.2-3.8 [facility] Comment on above: Performed By: #### C MP, BNP #### [facility] [address] [address] [address] Kamaljit Browning Lymphocytes/100 WBC (Bld) 15.2 % Critically low 20.5-60.0 [facility] Comment on above: Performed By: #### C MP, BNP #### [facility] [address] [address] [address] Kamaljit Browning MANUAL DIFF REQ NO Normal [facility] Comment on above: Performed By: #### C MP, BNP #### [facility] [address] [place] [address] Dr. Kamaljit Browning MCH (RBC) [Entitic mass] 30.6 pg Normal 25.9-34.0 [facility] Comment on above: Performed By: #### C MP, BNP #### [facility] [address] [place] [address] Dr. Kamaljit Browning MCHC (RBC) [Mass/Vol] 33.3 g/dL Normal 29.9-35.2 [facility] Comment on above: Performed By: #### C MP, BNP #### [facility] [address] [place] [address] Dr. Kamaljit Browning MCV (RBC) [Entitic vol] 91.9 fL Normal 80.0-94.0 [facility] Comment on above: Performed By: #### C MP, BNP #### [facility] [address] [place] [address] Dr. Kamaljit Browning MONO # 0.5 103/ul Normal 0.3-0.8 [facility] Comment on above: Performed By: #### C MP, BNP #### [facility] [address] [place] [address] Dr. Kamaljit Browning Monocytes/100 WBC (Bld) 8.9 % Normal 1.7-12.0 [facility] Comment on above: Performed By: #### C MP, BNP #### [facility] [address] [place] [address] Dr. Kamaljit Browning NEUT # 3.8 103/ul Normal 1.4-6.5 [facility] Comment on above: Performed By: #### C MP, BNP #### [facility] [address] [address] [address] Kamaljit Browning Neutrophils/100 WBC (Bld) 73.0 % Normal 43.0-75.0 [facility] Comment on above: Performed By: #### C MP, BNP #### [facility] [address] [place] [address] Dr. Kamaljit Browning Platelet mean volume (Bld) [Entitic vol] 12.5 fL Normal 9.5-13.5 [facility] Comment on above: Performed By: #### C MP, BNP #### [facility] [address] [place] [address] Dr. Kamaljit Browning PLT 126 103/ul Critically low 150-450 [facility] Comment on above: Performed By: #### C MP, BNP #### [facility] [address] [place] [address] Dr. Kamaljit Browning RBC 4.18 106/ul Critically low 4.70-6.10 [facility] Comment on above: Performed By: #### C MP, BNP #### [facility] [address] [place] [address] Dr. Kamaljit Browning WBC 5.2 103/ul Normal 4.0-11.0 [facility] Comment on above: Performed By: #### C MP, BNP #### [facility] [address] [place] [address] Dr. Kamaljit Browning FREE THYROXINE INDEX T7on FTI 2.31 Normal 1.30-4.50 [facility] Comment on above: Performed By: #### C BC #### [facility] [address] [place] [address] Dr. Kamaljit Browning T3U 34.0 % Normal 33.0-40.0 [facility] Comment on above: Performed By: #### C BC #### [facility] [address] [address] [address] Kamaljit Browning T4 [Mass/Vol] 6.80 ug/dL Normal 4.50-12.10 [facility] Comment on above: Performed By: #### C BC #### [facility] [address] [address] [address] Kamaljit Browning GLYCOHEMOGLOBIN A1Con 2022 ADA RECOMMENDATION SEE BELOW Normal [facility] Comment on above: Result Comment: ADA RECOMMENDED LIMIT 4.0 - 6.0 ADA THERAPEUTIC TARGET < 7.0 ACTION SUGGESTED > 7.0 Performed By: #### A 1C #### [facility] [address] [place] [address] Dr. Kamaljit Browning Glucose [Mass/Vol] 154 mg/dL Normal [facility] Comment on above: Performed By: #### A 1C #### [facility] [address] [place] [address] Dr. Kamaljit Browning HbA1c (Bld) [Mass fraction] 7.0 % Critically high 4.5-6.2 [facility] Comment on above: Performed By: #### A 1C #### [facility] [address] [place] [address] Dr. Kamaljit Browning LIPID PROFILEon 11-14-2022 CHOL-HDL RATIO NORM SEE BELOW Normal [facility] Comment on above: Result Comment: 3.3 - 4.4 LOW RISK 4.4 - 7.1 AVERAGE RISK 7.1 - 11.0 MODERATE RISK >11.0 HIGH RISK Performed By: #### A 1C #### [facility] [address] [place] [address] Dr. Kamaljit Browning Cholesterol [Mass/Vol] 148 mg/dL Normal <=200 [facility] Comment on above: Performed By: #### A 1C #### [facility] [address] [place] [address] Dr. Kamaljit Browning Cholesterol in HDL [Mass/Vol] 41 mg/dL Normal 40-60 [facility] Comment on above: Performed By: #### A 1C #### [facility] [address] [place], [place] [id number] Dr. Kamaljit Browning Cholesterol in LDL [Mass/Vol] 81.6 mg/dL Normal [facility] Comment on above: Performed By: #### A 1C #### [facility] [address] [address] [address] Kamaljit Browning Cholesterol.total/Ch olesterol in HDL [Mass ratio] 3.6 {ratio} Normal [facility] Comment on above: Performed By: #### A 1C #### [facility] [address] [address] [address] Kamaljit Browning HDL NORMAL > or = 60 mg/dl - LO W CARDIOVASCULAR RISK <40 mg/dl - HIGH CARDIOVASCULAR RISK Normal [facility] Comment on above: Performed By: #### A 1C #### [facility] [address] [place] [address] Dr. Kamaljit Browning LDL CALC NORMAL SEE BELOW Normal [facility] Comment on above: Result Comment: <100 mg/dl OPTIMAL 100 - 129 mg/dl NEAR OR ABOVE OPTIMAL 130 - 159 mg/dl BORDERLINE HIGH 160 - 189 mg/dl HIGH >190 mg/dl VERY HIGH Performed By: #### A 1C #### [facility] [address] [address] [address] Kamaljit Browning Triglyceride [Mass/Vol] 127 mg/dL Normal <=150 [facility] Comment on above: Performed By: #### A 1C #### [facility] [address] [place] [address] Dr. Kamaljit Browning VLDL CALC 25.4 mg/dL Normal [facility] Comment on above: Performed By: #### A 1C #### [facility] [address] [address] [address] Kamaljit Browning PROF 14(COMP METB)on 023 Albumin [Mass/Vol] 4.2 g/dL Normal 3.4-5.0 [facility] Comment on above: Performed By: #### A 1C #### [facility] [address] [place] [address] Dr. Kamaljit Browning Albumin/Globulin [Mass ratio] 1.3 {ratio} Normal [facility] Comment on above: Performed By: #### A 1C #### [facility] [address] [address] [address] Kamaljit Browning ALP [Catalytic activity/Vol] 79 U/L Normal 46-116 [facility] Comment on above: Performed By: #### A 1C #### [facility] [address] [address] [address] Kamaljit Browning ALT [Catalytic activity/Vol] 27 U/L Normal 16-63 [facility] Comment on above: Performed By: #### A 1C #### [facility] [address] [address] [address] Kamaljit Browning Anion gap [Moles/Vol] 15.0 mmol/L Normal [facility] Comment on above: Performed By: #### A 1C #### [facility] [address] [place] [address] Dr. Kamaljit Browning AST [Catalytic activity/Vol] 23 U/L Normal 15-37 [facility] Comment on above: Performed By: #### A 1C #### [facility] [address] [place] [address] Dr. Kamaljit Browning Bilirubin [Mass/Vol] 0.3 mg/dL Normal 0.2-1.0 [facility] Comment on above: Performed By: #### A 1C #### [facility] [address] [place] [address] Dr. Kamaljit Browning Calcium [Mass/Vol] 9.0 mg/dL Normal 8.5-10.1 [facility] Comment on above: Performed By: #### A 1C #### [facility] [address] [place] [address] Dr. Kamaljit Browning Chloride [Moles/Vol] 105 mmol/L Normal 98-107 [facility] Comment on above: Performed By: #### A 1C #### [facility] [address] [place] [address] Dr. Kamaljit Browning CO2 [Moles/Vol] 24.7 mmol/L Normal 21.0-32.0 [facility] Comment on above: Performed By: #### A 1C #### [facility] [address] [address] [address] Kamaljit Browning Creatinine [Mass/Vol] 1.55 mg/dL Critically high 0.70-1.30 [facility] Comment on above: Performed By: #### A 1C #### [facility] [address] [address] [address] Kamaljit Browning EGFR-AF LAO 54 mL/min/1.73m2 Critically low >=60 [facility] Comment on above: Performed By: #### A 1C #### [facility] [address] [address] [address] Kamaljit Browning EGFR-NON AF LAO 45 mL/min/1.73m2 Critically low >=60 [facility] Comment on above: Performed By: #### A 1C #### [facility] [address] [address] [address] Kamaljit Browning Globulin (S) [Mass/Vol] 3.3 g/dL Normal [facility] Comment on above: Performed By: #### A 1C #### [facility] [address] [address] [address] Kamaljit Browning Glucose [Mass/Vol] 129 mg/dL Critically high 74-106 [facility] Comment on above: Performed By: #### A 1C #### [facility] [address] [address] [address] Kamaljit Browning Potassium [Moles/Vol] 4.7 mmol/L Normal 3.5-5.1 [facility] Comment on above: Performed By: #### A 1C #### [facility] [address] [address] [address] Kamaljit Browning Protein [Mass/Vol] 7.5 g/dL Normal 6.4-8.2 [facility] Comment on above: Performed By: #### A 1C #### [facility] [address] [address] [address] Kamaljit Browning Sodium [Moles/Vol] 140 mmol/L Normal 136-145 [facility] Comment on above: Performed By: #### A 1C #### [facility] [address] [address] [address] Kamaljit Browning Urea nitrogen [Mass/Vol] 30.0 mg/dL Critically high 7.0-18.0 [facility] Comment on above: Performed By: #### A 1C #### [facility] [address] [place] [address] Dr. Kamaljit Browning Urea nitrogen/Creatinine [Mass ratio] 19.4 mg/mg Normal [facility] Comment on above: Performed By: #### A 1C #### [facility] [address] [place] [address] Dr. Kamaljit Browning TSHon 11-14-2022 TSH 1.597 uIU/mL Normal 0.358-3.740 [facility] Comment on above: Performed By: #### A 1C #### [facility] [address] [place] [address] Dr. Kamaljit Browning URIC ACID SERUMon 11-14-2022 Urate [Mass/Vol] 9.4 mg/dL Critically high 3.5-7.2 [facility] Comment on above: Performed By: #### C BC #### [facility] [address] [place] [address] Dr. Kamaljit Browning OCC BLD IMMUNO SCREENon 10-27 OCCULT BLOOD Positive Abnormal NEGATIVE [facility] Comment on above: Performed By: #### C MP, BNP #### [facility] [address] [place] [address] Dr. Kamaljit Browning POINT OF CARE GLUCOSEon 05-29 Glucose [Mass/Vol] 329 mg/dL Critically high 74-106 [facility] Comment on above: Performed By: #### A 1C #### [facility] [address] [place] [address] Dr. Kamaljit Browning [facility]on SARS-CoV-2 (COVID-19) RNA SOURAV+probe Ql (Unsp spec) Not detected Normal NOT DETECTED [facility] Comment on above: Result Comment: When [...] for this test is supported by the [place] of Health and Human Service's declaration that [...] used). Performed By: #### A 1C #### [facility] [address] [place] [address] Dr. Kamaljit Browning INFLUENZA A AND B [facility] 06-02 [facility] SEE BELOW Normal [facility] Comment on above: Result Comment: Nega tive for Flu A protein angiten. Infection due to Flu A cannot be ruled out. Flu A angiten in the sample may be below the detection limit of the test. Performed By: #### C BC #### [facility] [address] [place] [address] Dr. Kamaljit Browning [facility] Normal [facility] Comment on above: Result Comment: Nega tive for Flu B protein antigen. Infection due to Flu B cannot be ruled out. Flu B antigen in the sample may be below the detection limit of the test. Performed By: #### C BC #### [facility] [address] [place] [address] Dr. Kamaljit Browning INFLUENZA A AG Negative Normal NEGATIVE SEE COMMENT [facility] Comment on above: Performed By: #### C BC #### [facility] [address] [place] [address] Dr. Kamaljit Browning INFLUENZA B AG Negative Normal NEGATIVE SEE COMMENT [facility] Comment on above: Performed By: #### C BC #### [facility] [address] [place] [address] Dr. Kamaljit Browning INTERNAL CONTROLS Within Normal Limits Normal Wi thin Normal Limits [facility] Comment on above: Performed By: #### C BC #### [facility] [address] [address] [address] Kamaljit Browning PROF CHEM 8 (BAS METB)on Anion gap [Moles/Vol] 13.1 mmol/L Normal [facility] Comment on above: Performed By: #### C BC #### [facility] [address] [address] [address] Kamaljit Browning Calcium [Mass/Vol] 8.9 mg/dL Normal 8.5-10.1 [facility] Comment on above: Performed By: #### C BC #### [facility] [address] [place] [address] Dr. Kamaljit Browning Chloride [Moles/Vol] 105 mmol/L Normal 98-107 [facility] Comment on above: Performed By: #### C BC #### [facility] [address] [place] [address] Dr. Kamaljit Browning CO2 [Moles/Vol] 27.3 mmol/L Normal 21.0-32.0 [facility] Comment on above: Performed By: #### C BC #### [facility] [address] [place] [address] Dr. Kamaljit Browning Creatinine [Mass/Vol] 1.28 mg/dL Normal 0.70-1.30 [facility] Comment on above: Performed By: #### C BC #### [facility] [address] [place] [address] Dr. Kamaljit Browning EGFR-AF LAO >60 Normal >=60 [facility] Comment on above: Performed By: #### C BC #### [facility] [address] [place] [address] Dr. Kamaljit Browning EGFR-NON AF LAO 56 mL/min/1.73m2 Critically low >=60 [facility] Comment on above: Performed By: #### C BC #### [facility] [address] [place] [address] Dr. Kamaljit Browning Glucose [Mass/Vol] 119 mg/dL Critically high 74-106 [facility] Comment on above: Performed By: #### C BC #### [facility] [address] [address] [address] Kamaljit Browning Potassium [Moles/Vol] 4.4 mmol/L Normal 3.5-5.1 [facility] Comment on above: Performed By: #### C BC #### [facility] [address] [address] [address] Kamaljit Browning Sodium [Moles/Vol] 141 mmol/L Normal 136-145 [facility] Comment on above: Performed By: #### C BC #### [facility] [address] [address] [address] Kamaljit Browning Urea nitrogen [Mass/Vol] 20.0 mg/dL Critically high 7.0-18.0 [facility] Comment on above: Performed By: #### C BC #### [facility] [address] [place] [address] Dr. Kamaljit Browning Urea nitrogen/Creatinine [Mass ratio] 15.6 mg/mg Normal [facility] Comment on above: Performed By: #### C BC #### [facility] [address] [address] [address] Kamaljit Browning METANEPHRINES PLASMA FREEon 01-18-2022 Metanephrine, Pl 46.2 pg/mL Normal 0.0-88.0 [facility] Comment on above: Performed By: #### C MP, BNP #### [facility] [address] [address] [address] Kamaljit Browning Normetanephrine, Pl 33.2 pg/mL Normal 0.0-285.2 [facility] Comment on above: Performed By: #### C MP, BNP #### [facility] [address] [address] [address] Kamaljit Browning ALDOSTERONE: RENIN RATIOon 0 01-08-2022 Aldos/Renin Ratio UPTCAL Normal [facility] Comment on above: Result Comment: Unab le to calculate result since non-numeric result obtained for component test. Units: ng/dL per ng/mL/hr Performed By: #### A LDOREN #### [facility] [address] [place] [address] Dr. Kamaljit Browning Aldosterone <1.0 Normal 0.0-30.0 [facility] Comment on above: Performed By: #### A LDOREN #### [facility] [address] [place] [address] Dr. Kamaljit Browning Renin Activity, Plasma <0.167 Critically low 0.167-5.380 [facility] Comment on above: Performed By: #### A LDOREN #### [facility] [address] [place] [address] Dr. Kamaljit Browning CATECHOLAMINES FRAC, PLASMAo n 12-31-2021 Dopamine, Pl <30 Normal 0-48 [facility] Comment on above: Performed By: #### C MP, BNP #### [facility] [address] [place] [address] Dr. Kamaljit Browning Epinephrine, Pl 58 pg/mL Normal 0-62 [facility] Comment on above: Performed By: #### C MP, BNP #### [facility] [address] [place] [address] Dr. Kamaljit Browning Norepinephrine, Pl 246 pg/mL Normal 0-874 [facility] Comment on above: Performed By: #### C MP, BNP #### [facility] [address] [place] [address] Dr. Kamaljit Browning BNPon 12-26-2021 Natriuretic peptide B (Bld) [Mass/Vol] 126.0 pg/mL Normal <=900.0 [facility] Comment on above: Performed By: #### C MP, BNP #### [facility] [address] [place] [address] Dr. Kamaljit Browning CBC AUTO DIFFon 12-26-2021 BASO # 0.1 103/ul Normal 0.0-0.1 [facility] Comment on above: Performed By: #### C BC #### [facility] [address] [place] [address] Dr. Kamaljit Browning Basophils/100 WBC (Bld) 0.9 % Normal 0.2-2.0 [facility] Comment on above: Performed By: #### C BC #### [facility] [address] [place] [address] Dr. Kamaljit Browning EO # 0.1 103/ul Normal 0.0-0.7 [facility] Comment on above: Performed By: #### C BC #### [facility] [address] [place] [address] Dr. Kamaljit Browning Eosinophils/100 WBC (Bld) 1.0 % Normal 0.9-7.0 [facility] Comment on above: Performed By: #### C BC #### [facility] [address] [place] [address] Dr. Kamaljit Browning Erythrocyte distribution width (RBC) [Ratio] 12.1 % Normal 11.0-15.0 [facility] Comment on above: Performed By: #### C BC #### [facility] [address] [place] [address] Dr. Kamaljit Browning Hematocrit (Bld) [Volume fraction] 39.2 % Critically low 42.0-54.0 [facility] Comment on above: Performed By: #### C BC #### [facility] [address] [place] [address] Dr. Kamaljit Browning Hemoglobin (Bld) [Mass/Vol] 13.2 g/dL Critically low 14.0-18.0 [facility] Comment on above: Performed By: #### C BC #### [facility] [address] [place] [address] Dr. Kamaljit Browning IG # 0.01 10e3/ul Normal 0.00-0.03 [facility] Comment on above: Performed By: #### C BC #### [facility] [address] [place] [address] Dr. Kamaljit Browning IG % 0.2 % Normal 0.0-0.5 [facility] Comment on above: Performed By: #### C BC #### [facility] [address] [place] [address] Dr. Kamaljit Browning LYMPH # 1.1 103/ul Critically low 1.2-3.8 [facility] Comment on above: Performed By: #### C BC #### [facility] [address] [address] [address] Kamaljit Browning Lymphocytes/100 WBC (Bld) 18.5 % Critically low 20.5-60.0 [facility] Comment on above: Performed By: #### C BC #### [facility] [address] [address] [address] Kamaljit Browning MANUAL DIFF REQ NO Normal [facility] Comment on above: Performed By: #### C BC #### [facility] [address] [place] [address] Dr. Kamaljit Browning MCH (RBC) [Entitic mass] 30.5 pg Normal 25.9-34.0 [facility] Comment on above: Performed By: #### C BC #### [facility] [address] [place] [address] Dr. Kamaljit Browning MCHC (RBC) [Mass/Vol] 33.7 g/dL Normal 29.9-35.2 [facility] Comment on above: Performed By: #### C BC #### [facility] [address] [place] [address] Dr. Kamaljit Browning MCV (RBC) [Entitic vol] 90.5 fL Normal 80.0-94.0 [facility] Comment on above: Performed By: #### C BC #### [facility] [address] [place] [address] Dr. Kamaljit Browning MONO # 0.4 103/ul Normal 0.3-0.8 [facility] Comment on above: Performed By: #### C BC #### [facility] [address] [place] [address] Dr. Kamaljit Browning Monocytes/100 WBC (Bld) 7.7 % Normal 1.7-12.0 [facility] Comment on above: Performed By: #### C BC #### [facility] [address] [place] [address] Dr. Kamaljit Browning NEUT # 4.1 103/ul Normal 1.4-6.5 [facility] Comment on above: Performed By: #### C BC #### [facility] [address] [address] [address] Kamaljit Browning Neutrophils/100 WBC (Bld) 71.7 % Normal 43.0-75.0 [facility] Comment on above: Performed By: #### C BC #### [facility] [address] [address] [address] Kamaljit Browning Platelet mean volume (Bld) [Entitic vol] 12.9 fL Normal 9.5-13.5 [facility] Comment on above: Performed By: #### C BC #### [facility] [address] [address] [address] Kamaljit Browning PLT 129 103/ul Critically low 150-450 [facility] Comment on above: Performed By: #### C BC #### [facility] [address] [place] [address] Dr. Kamaljit Browning RBC 4.33 106/ul Critically low 4.70-6.10 [facility] Comment on above: Performed By: #### C BC #### [facility] [address] [place] [address] Dr. Kamaljit Browning WBC 5.7 103/ul Normal 4.0-11.0 [facility] Comment on above: Performed By: #### C BC #### [facility] [address] [place] [address] Dr. Kamaljit Browning PROF 14(COMP METB)on 022 Albumin [Mass/Vol] 3.9 g/dL Normal 3.4-5.0 [facility] Comment on above: Performed By: #### C MP, BNP #### [facility] [address] [place] [address] Dr. Kamaljit Browning Albumin/Globulin [Mass ratio] 1.2 {ratio} Normal [facility] Comment on above: Performed By: #### C MP, BNP #### [facility] [address] [place] [address] Dr. Kamaljit Browning ALP [Catalytic activity/Vol] 83 U/L Normal 46-116 [facility] Comment on above: Performed By: #### C MP, BNP #### [facility] [address] [place] [address] Dr. Kamaljit Browning ALT [Catalytic activity/Vol] 30 U/L Normal 16-63 [facility] Comment on above: Performed By: #### C MP, BNP #### [facility] [address] [place] [address] Dr. Kamaljit Browning Anion gap [Moles/Vol] 12.6 mmol/L Normal [facility] Comment on above: Performed By: #### C MP, BNP #### [facility] [address] [place] [address] Dr. Kamaljit Browning AST [Catalytic activity/Vol] 28 U/L Normal 15-37 [facility] Comment on above: Performed By: #### C MP, BNP #### [facility] [address] [place] [address] Dr. Kamaljit Browning Bilirubin [Mass/Vol] 0.6 mg/dL Normal 0.2-1.0 [facility] Comment on above: Performed By: #### C MP, BNP #### [facility] [address] [place] [address] Dr. Kamaljit Browning Calcium [Mass/Vol] 8.9 mg/dL Normal 8.5-10.1 [facility] Comment on above: Performed By: #### C MP, BNP #### [facility] [address] [place] [address] Dr. Kamaljit Browning Chloride [Moles/Vol] 107 mmol/L Normal 98-107 [facility] Comment on above: Performed By: #### C MP, BNP #### [facility] [address] [place] [address] Dr. Kamaljit Browning CO2 [Moles/Vol] 26.4 mmol/L Normal 21.0-32.0 [facility] Comment on above: Performed By: #### C MP, BNP #### [facility] [address] [place] [address] Dr. Kamaljit Browning Creatinine [Mass/Vol] 1.11 mg/dL Normal 0.70-1.30 [facility] Comment on above: Performed By: #### C MP, BNP #### [facility] [address] [place] [address] Dr. Kamaljit Browning EGFR-AF LAO >60 Normal >=60 [facility] Comment on above: Performed By: #### C MP, BNP #### [facility] [address] [place] [address] Dr. Kamaljit Browning EGFR-NON AF LAO >60 Normal >=60 [facility] Comment on above: Performed By: #### C MP, BNP #### [facility] [address] [address] [address] Kamaljit Browning Globulin (S) [Mass/Vol] 3.2 g/dL Normal [facility] Comment on above: Performed By: #### C MP, BNP #### [facility] [address] [place] [address] Dr. Kamaljit Browning Glucose [Mass/Vol] 112 mg/dL Critically high 74-106 [facility] Comment on above: Performed By: #### C MP, BNP #### [facility] [address] [place] [address] Dr. Kamaljit Browning Potassium [Moles/Vol] 4.0 mmol/L Normal 3.5-5.1 [facility] Comment on above: Performed By: #### C MP, BNP #### [facility] [address] [place] [address] Dr. Kamaljit Browning Protein [Mass/Vol] 7.1 g/dL Normal 6.4-8.2 [facility] Comment on above: Performed By: #### C MP, BNP #### [facility] [address] [place] [address] Dr. Kamaljit Browning Sodium [Moles/Vol] 142 mmol/L Normal 136-145 [facility] Comment on above: Performed By: #### C MP, BNP #### [facility] [address] [place] [address] Dr. Kamaljit Browning Urea nitrogen [Mass/Vol] 15.0 mg/dL Normal 7.0-18.0 [facility] Comment on above: Performed By: #### C MP, BNP #### [facility] [address] [place], [place] [id number] Dr. Kamaljit Browning Urea nitrogen/Creatinine [Mass ratio] 13.5 mg/mg Normal [facility] Comment on above: Performed By: #### C MP, BNP #### [facility] [address] [place] [address] Dr. Kamaljit Browning PROTIMEon 12-26-2021 INR Coag (PPP) [Relative time] 3.98 {INR} Normal [facility] Comment on above: Performed By: #### A 1C #### [facility] [address] [place] [address] Dr. Kamaljit Browning INR GUIDELINES SEE BELOW Normal [facility] Comment on above: Result Comment: NILDA RED INR: 2.0 - 3.0 CONDITIONS NOT LISTED BELOW 2.5 - 3.5 FOR PROSTHETIC HEART VALVE REPLACEMENT 2.5 - 3.5 RECURRENT THROMBOSIS Performed By: #### A 1C #### [facility] [address] [place] [address] Dr. Kamaljit Browning PT Coag (PPP) [Time] 39.3 s Critically high 9.0-11.6 [facility] Comment on above: Performed By: #### A 1C #### [facility] [address] [place] [address] Dr. Kamaljit Browning T3, TOTAL (TRIIODOTHYRONINE) on 12-26-2021 T3, TOTAL 67 ng/dL Critically low 71-180 [facility] Comment on above: Performed By: #### C BC #### [facility] [address] [place] [address] Dr. Kamaljit Browning US VASCULAR ORG CMPLon [...] LISBET BRANCH Date: 2021-12-26 09:34 Normal [facility] BNPon 12-25-2021 Natriuretic peptide B (Bld) [Mass/Vol] 106.0 pg/mL Normal <=900.0 [facility] Comment on above: Performed By: #### C MP, BNP #### [facility] [address] [place] [address] Dr. Kamaljit Browning CARDIAC GABRIELLA 3-6on 2 CK [Catalytic activity/Vol] 92 U/L Normal 39-308 [facility] Comment on above: Performed By: #### C MP, BNP #### [facility] [address] [place] [address] Dr. Kamaljit Browning CK.MB [Mass/Vol] 1.08 ng/mL Normal <=3.60 [facility] Comment on above: Performed By: #### C MP, BNP #### [facility] [address] [place] [address] Dr. Kamaljit Browning HSTROP 21.7 pg/mL Normal 4.0-76.1 [facility] Comment on above: Result Comment: CUT- OFF POINTS HAVE BEEN ESTABLISHED BASED ON THE FOURTH UNIVERSAL DEFINITIONS OF MYOCARDIAL INFARCTION. THE UPPER REFERENCE LIMIT (URL) OF TROPONIN, DEFINED THE 99TH PERCENTILE OF cTnI DISTRIBUTION IN A REFERENCE POPULATION, HAS BEEN CONFIRMED THE DECISION THRESHOLD FOR DE DIAGNOSIS. Performed By: #### C MP, BNP #### [facility] [address] [place] [address] Dr. Kamaljit Browning CK [Catalytic activity/Vol] 98 U/L Normal 39-308 [facility] Comment on above: Performed By: #### C MP, BNP #### [facility] [address] [place] [address] Dr. Kamaljit Browning CK.MB [Mass/Vol] 1.25 ng/mL Normal <=3.60 [facility] Comment on above: Performed By: #### C MP, BNP #### [facility] [address] [place] [address] Dr. Kamaljit Browning HSTROP 23.6 pg/mL Normal 4.0-76.1 [facility] Comment on above: Result Comment: CUT- OFF POINTS HAVE BEEN ESTABLISHED BASED ON THE FOURTH UNIVERSAL DEFINITIONS OF MYOCARDIAL INFARCTION. THE UPPER REFERENCE LIMIT (URL) OF TROPONIN, DEFINED THE 99TH PERCENTILE OF cTnI DISTRIBUTION IN A REFERENCE POPULATION, HAS BEEN CONFIRMED THE DECISION THRESHOLD FOR DE DIAGNOSIS. Performed By: #### C MP, BNP #### [facility] [address] [place] [address] Dr. Kamaljit Browning CARDIAC GABRIELLA ADMITon 022 CK [Catalytic activity/Vol] 105 U/L Normal 39-308 [facility] Comment on above: Performed By: #### C MP, BNP #### [facility] [address] [place] [address] Dr. Kamaljit Browning CK.MB [Mass/Vol] 0.99 ng/mL Normal <=3.60 [facility] Comment on above: Performed By: #### C MP, BNP #### [facility] [address] [place] [address] Dr. Kamaljit Browning HSTROP 24.9 pg/mL Normal 4.0-76.1 [facility] Comment on above: Result Comment: CUT- OFF POINTS HAVE BEEN ESTABLISHED BASED ON THE FOURTH UNIVERSAL DEFINITIONS OF MYOCARDIAL INFARCTION. THE UPPER REFERENCE LIMIT (URL) OF TROPONIN, DEFINED THE 99TH PERCENTILE OF cTnI DISTRIBUTION IN A REFERENCE POPULATION, HAS BEEN CONFIRMED THE DECISION THRESHOLD FOR DE DIAGNOSIS. Performed By: #### C MP, BNP #### [facility] [address] [place] [address] Dr. Kamaljit Browning SANDI 51 ng/mL Normal 16-96 [facility] Comment on above: Performed By: #### C MP, BNP #### [facility] [address] [place] [address] Dr. Kamaljit Browning CBC AUTO DIFFon 12-25-2021 BASO # 0.1 103/ul Normal 0.0-0.1 [facility] Comment on above: Performed By: #### C BC #### [facility] [address] [place] [address] Dr. Kamaljit Browning Basophils/100 WBC (Bld) 0.8 % Normal 0.2-2.0 [facility] Comment on above: Performed By: #### C BC #### [facility] [address] [place] [address] Dr. Kamaljit Browning EO # 0.1 103/ul Normal 0.0-0.7 [facility] Comment on above: Performed By: #### C BC #### [facility] [address] [place] [address] Dr. Kamaljit Browning Eosinophils/100 WBC (Bld) 1.0 % Normal 0.9-7.0 [facility] Comment on above: Performed By: #### C BC #### [facility] [address] [place] [address] Dr. Kamaljit Browning Erythrocyte distribution width (RBC) [Ratio] 12.1 % Normal 11.0-15.0 [facility] Comment on above: Performed By: #### C BC #### [facility] [address] [place] [address] Dr. Kamaljit Browning Hematocrit (Bld) [Volume fraction] 42.2 % Normal 42.0-54.0 [facility] Comment on above: Performed By: #### C BC #### [facility] [address] [place] [address] Dr. Kamaljit Browning Hemoglobin (Bld) [Mass/Vol] 14.2 g/dL Normal 14.0-18.0 [facility] Comment on above: Performed By: #### C BC #### [facility] [address] [place] [address] Dr. Kamaljit Browinng IG # 0.02 10e3/ul Normal 0.00-0.03 [facility] Comment on above: Performed By: #### C BC #### [facility] [address] [place] [address] Dr. Kamaljit Browning IG % 0.3 % Normal 0.0-0.5 [facility] Comment on above: Performed By: #### C BC #### [facility] [address] [place] [address] Dr. Kamaljit Browning LYMPH # 0.9 103/ul Critically low 1.2-3.8 [facility] Comment on above: Performed By: #### C BC #### [facility] [address] [place] [address] Dr. Kamaljit Browning Lymphocytes/100 WBC (Bld) 14.7 % Critically low 20.5-60.0 [facility] Comment on above: Performed By: #### C BC #### [facility] [address] [place] [address] Dr. Kamaljit Browning MANUAL DIFF REQ NO Normal [facility] Comment on above: Performed By: #### C BC #### [facility] [address] [place] [address] Dr. Kamaljit Browning MCH (RBC) [Entitic mass] 30.4 pg Normal 25.9-34.0 [facility] Comment on above: Performed By: #### C BC #### [facility] [address] [place] [address] Dr. Kamaljit Browning MCHC (RBC) [Mass/Vol] 33.6 g/dL Normal 29.9-35.2 [facility] Comment on above: Performed By: #### C BC #### [facility] [address] [place] [address] Dr. Kamaljit Browning MCV (RBC) [Entitic vol] 90.4 fL Normal 80.0-94.0 [facility] Comment on above: Performed By: #### C BC #### [facility] [address] [place] [address] Dr. Kamlajit Browning MONO # 0.4 103/ul Normal 0.3-0.8 [facility] Comment on above: Performed By: #### C BC #### [facility] [address] [address] [address] Kamaljit Browning Monocytes/100 WBC (Bld) 6.5 % Normal 1.7-12.0 [facility] Comment on above: Performed By: #### C BC #### [facility] [address] [address] [address] Kamaljit Browning NEUT # 4.6 103/ul Normal 1.4-6.5 [facility] Comment on above: Performed By: #### C BC #### [facility] [address] [place] [address] Dr. Kamaljit Browning Neutrophils/100 WBC (Bld) 76.7 % Critically high 43.0-75.0 [facility] Comment on above: Performed By: #### C BC #### [facility] [address] [place] [address] Dr. Kamaljit Brownnig Platelet mean volume (Bld) [Entitic vol] 12.2 fL Normal 9.5-13.5 [facility] Comment on above: Performed By: #### C BC #### [facility] [address] [place] [address] Dr. Kamaljit Browning PLT 120 103/ul Critically low 150-450 [facility] Comment on above: Performed By: #### C BC #### [facility] [address] [place] [address] Dr. Kamaljit Browning RBC 4.67 106/ul Critically low 4.70-6.10 [facility] Comment on above: Performed By: #### C BC #### [facility] [address] [place] [address] Dr. Kamaljit Browning WBC 6.0 103/ul Normal 4.0-11.0 [facility] Comment on above: Performed By: #### C BC #### [facility] [address] [place] [address] Dr. Kamaljit Browning CULTURE URINEon 12-25-2021 CULTURE URINE Culture Observations : NO GROWTH. Normal [facility] Comment on above: Performed By: #### C MP, BNP #### [facility] [address] [address] [address] Kamaljit Browning [facility] SARS-CoV-2 (COVID-19) RNA SOURAV+probe Ql (Unsp spec) Not detected Normal NOT DETECTED [facility] Comment on above: Result Comment: When [...] for this test is supported by the Software Developer Intern of Health and Human Service's declaration that [...] longer be used). Performed By: #### C BC #### [facility] [address] [place] [address] Dr. Kamaljit Browning ECHOCARDIO M/2D COMPLETEon 0 12-25-2021 ECHOCARDIO M/2D COMPLETE Patient: MARTIN WEST Exam Date: 12/25/2021 : 1950 Gender:M Ordering : DR PETRA WOOTEN . Admission #: [id number] Family : DR ALAYNA LANGLEY M.D. Order #: [id number] CLICK HERE TO VIEW EXAM ECHOCARDIOGRAM REPORT [...] Area(A4C): 22.50 cm2 Left Atrium Systolic Volume(A2C): 07558 mm3 Left Atrium Systolic Volume(A4C): 72038 mm3 Mitral Valve MV E to A Ratio: 1 Deceleration Colbert: 5860 mm/s2 Mitral Valve A-Wave Peak Velocity: [...] Reddy M.D. on 12/25/2021 at 16:48 Normal [facility] MAGNESIUMon 12-25-2021 Magnesium [Mass/Vol] 2.2 mg/dL Normal 1.8-2.4 [facility] Comment on above: Performed By: #### C MP, BNP #### [facility] [address] [place] [address] Dr. Kamaljit Browning PHOSPHORUSon 12-25-2021 Phosphate [Mass/Vol] 3.2 mg/dL Normal 2.6-4.7 [facility] Comment on above: Performed By: #### C MP, BNP #### [facility] [address] [place] [address] Dr. Kamaljit Browning PROF 14(COMP METB)on 022 Albumin [Mass/Vol] 4.4 g/dL Normal 3.4-5.0 [facility] Comment on above: Performed By: #### C MP, BNP #### [facility] [address] [place] [address] Dr. Kamaljit Browning Albumin/Globulin [Mass ratio] 1.2 {ratio} Normal [facility] Comment on above: Performed By: #### C MP, BNP #### [facility] [address] [address] [address] Kamaljit Browning ALP [Catalytic activity/Vol] 95 U/L Normal 46-116 [facility] Comment on above: Performed By: #### C MP, BNP #### [facility] [address] [address] [address] Kamaljit Browning ALT [Catalytic activity/Vol] 30 U/L Normal 16-63 [facility] Comment on above: Performed By: #### C MP, BNP #### [facility] [address] [address] [address] Kamaljit Browning Anion gap [Moles/Vol] 12.0 mmol/L Normal [facility] Comment on above: Performed By: #### C MP, BNP #### [facility] [address] [place] [address] Dr. Kamaljit Browning AST [Catalytic activity/Vol] 27 U/L Normal 15-37 [facility] Comment on above: Performed By: #### C MP, BNP #### [facility] [address] [place] [address] Dr. Kamaljit Browning Bilirubin [Mass/Vol] 0.8 mg/dL Normal 0.2-1.0 [facility] Comment on above: Performed By: #### C MP, BNP #### [facility] [address] [place] [address] Dr. Kamaljit Browning Calcium [Mass/Vol] 9.1 mg/dL Normal 8.5-10.1 [facility] Comment on above: Performed By: #### C MP, BNP #### [facility] [address] [place] [address] Dr. Kamaljit Browning Chloride [Moles/Vol] 107 mmol/L Normal 98-107 [facility] Comment on above: Performed By: #### C MP, BNP #### [facility] [address] [place] [address] Dr. Kamaljit Browning CO2 [Moles/Vol] 27.6 mmol/L Normal 21.0-32.0 [facility] Comment on above: Performed By: #### C MP, BNP #### [facility] [address] [place] [address] Dr. Kamaljit Browning Creatinine [Mass/Vol] 1.01 mg/dL Normal 0.70-1.30 [facility] Comment on above: Performed By: #### C MP, BNP #### [facility] [address] [address] [address] Kamaljit Browning EGFR-AF LAO >60 Normal >=60 [facility] Comment on above: Performed By: #### C MP, BNP #### [facility] [address] [place] [address] Dr. Kamaljti Browning EGFR-NON AF LAO >60 Normal >=60 [facility] Comment on above: Performed By: #### C MP, BNP #### [facility] [address] [place] [address] Dr. Kamaljit Browning Globulin (S) [Mass/Vol] 3.6 g/dL Normal [facility] Comment on above: Performed By: #### C MP, BNP #### [facility] [address] [place] [address] Dr. Kamaljit Browning Glucose [Mass/Vol] 123 mg/dL Critically high 74-106 [facility] Comment on above: Performed By: #### C MP, BNP #### [facility] [address] [place] [address] Dr. Kamaljit Browning Potassium [Moles/Vol] 4.6 mmol/L Normal 3.5-5.1 [facility] Comment on above: Performed By: #### C MP, BNP #### [facility] [address] [place] [address] Dr. Kamaljit Browning Protein [Mass/Vol] 8.0 g/dL Normal 6.4-8.2 [facility] Comment on above: Performed By: #### C MP, BNP #### [facility] [address] [place] [address] Dr. Kamaljit Browning Sodium [Moles/Vol] 142 mmol/L Normal 136-145 [facility] Comment on above: Performed By: #### C MP, BNP #### [facility] [address] [place] [address] Dr. Kamaljit Browning Urea nitrogen [Mass/Vol] 12.0 mg/dL Normal 7.0-18.0 [facility] Comment on above: Performed By: #### C MP, BNP #### [facility] [address] [place] [address] Dr. Kamaljit Browning Urea nitrogen/Creatinine [Mass ratio] 11.9 mg/mg Normal [facility] Comment on above: Performed By: #### C MP, BNP #### [facility] [address] [place] [address] Dr. Kamaljit Browning PROTIMEon 12-25-2021 INR Coag (PPP) [Relative time] 3.75 {INR} Normal [facility] Comment on above: Performed By: #### P T, PTT #### [facility] [address] [place] [address] Dr. Kamaljit Browning INR GUIDELINES SEE BELOW Normal [facility] Comment on above: Result Comment: NILDA RED INR: 2.0 - 3.0 CONDITIONS NOT LISTED BELOW 2.5 - 3.5 FOR PROSTHETIC HEART VALVE REPLACEMENT 2.5 - 3.5 RECURRENT THROMBOSIS Performed By: #### P T, PTT #### [facility] [address] [place] [address] Dr. Kamaljit Browning PT Coag (PPP) [Time] 37.1 s Critically high 9.0-11.6 [facility] Comment on above: Performed By: #### P T, PTT #### [facility] [address] [place] [address] Dr. Kamaljit Browning PTTon 12-25-2021 aPTT Coag (Bld) [Time] 55.4 s Critically high 22.3-36.2 [facility] Comment on above: Performed By: #### P T, PTT #### [facility] [address] [place] [address] Dr. Kamaljit Browning T4on 12-25-2021 T4 [Mass/Vol] 8.90 ug/dL Normal 4.50-12.10 [facility] Comment on above: Performed By: #### C MP, BNP #### [facility] [address] [place] [address] Dr. Kamaljit Browning TSHon 12-25-2021 TSH 0.778 uIU/mL Normal 0.358-3.740 [facility] Comment on above: Performed By: #### C MP, BNP #### [facility] [address] [place] [address] Dr. Kamaljit Browning UA RANDOM W/MICROSCOPICon BACTERIA NONE SEEN Normal NONE SEEN [facility] Comment on above: Performed By: #### A 1C #### [facility] [address] [place] [address] Dr. Kamaljit Browning Bilirubin Ql (U) Negative Normal NEGATIVE [facility] Comment on above: Performed By: #### A 1C #### [facility] [address] [place] [address] Dr. Kamaljit Browning CAST NONE SEEN Normal NONE SEEN [facility] Comment on above: Performed By: #### A 1C #### [facility] [address] [place] [address] Dr. Kamaljit Browning Clarity (U) CLEAR Normal CLEAR [facility] Comment on above: Performed By: #### A 1C #### [facility] [address] [place] [address] Dr. Kamaljit Browning Color (U) LT. YELLOW Normal YELLOW [facility] Comment on above: Performed By: #### A 1C #### [facility] [address] [place] [address] Dr. Kamaljit Browning Crystals LM Nom (Urine sed) NONE SEEN Normal NONE SEEN [facility] Comment on above: Performed By: #### A 1C #### [facility] [address] [place] [address] Dr. Kamaljit Browning Epithelial cells LM Ql (Urine sed) NONE SEEN Normal NONE SEEN /RARE [facility] Comment on above: Performed By: #### A 1C #### [facility] [address] [place] [address] Dr. Kamaljit Browning Glucose Ql (U) Negative Normal NEGATIVE [facility] Comment on above: Performed By: #### A 1C #### [facility] [address] [place] [address] Dr. Kamaljit Browning Hemoglobin Ql (U) Negative Normal NEGATIVE [facility] Comment on above: Performed By: #### A 1C #### [facility] [address] [place] [address] Dr. Kamaljit Browning Ketones Ql (U) Negative Normal NEGATIVE [facility] Comment on above: Performed By: #### A 1C #### [facility] [address] [place] [address] Dr. Kamaljit Browning LEUKOCYTES Negative Normal NEGATIVE [facility] Comment on above: Performed By: #### A 1C #### [facility] [address] [place] [address] Dr. Kamaljit Browning MUCOUS NONE SEEN Normal NONE SEEN [facility] Comment on above: Performed By: #### A 1C #### [facility] [address] [place] [address] Dr. Kamaljit Browning Nitrite Ql (U) Negative Normal NEGATIVE [facility] Comment on above: Performed By: #### A 1C #### [facility] [address] [place] [address] Dr. Kamaljit Browning pH (U) 6.0 [pH] Normal 5-9 [facility] Comment on above: Performed By: #### A 1C #### [facility] [address] [place] [address] Dr. Kamaljit Browning RBC NONE SEEN Abnormal 0-2 [facility] Comment on above: Performed By: #### A 1C #### [facility] [address] [place] [address] Dr. Kamaljit Browning SPEC GRAVITY 1.010 Normal 1.005-<=1.025 [facility] Comment on above: Performed By: #### A 1C #### [facility] [address] [place] [address] Dr. Kamaljit Browning UA PROTEIN Negative Normal NEGATIVE/ TRACE [facility] Comment on above: Performed By: #### A 1C #### [facility] [address] [place] [address] Dr. Kamaljit Browning Urobilinogen Qn (U) 0.2 {Mari'U}/dL Normal 0.2 - 1. 0 [facility] Comment on above: Performed By: #### A 1C #### [facility] [address] [place] [address] Dr. Kamaljit Browning WBC NONE SEEN Normal NONE SEEN [facility] Comment on above: Performed By: #### A 1C #### [facility] [address] [place] [address] Dr. Kamaljit Browning CBC AUTO DIFFon 12-18-2021 BASO # 0.0 103/ul Normal 0.0-0.1 [facility] Comment on above: Performed By: #### C BC #### [facility] [address] [place] [address] Dr. Kamaljit Browning Basophils/100 WBC (Bld) 0.6 % Normal 0.2-2.0 [facility] Comment on above: Performed By: #### C BC #### [facility] [address] [place] [address] Dr. Kamaljit Browning EO # 0.1 103/ul Normal 0.0-0.7 [facility] Comment on above: Performed By: #### C BC #### [facility] [address] [place] [address] Dr. Kamaljit Bronwing Eosinophils/100 WBC (Bld) 1.1 % Normal 0.9-7.0 [facility] Comment on above: Performed By: #### C BC #### [facility] [address] [place] [address] Dr. Kamaljit Browning Erythrocyte distribution width (RBC) [Ratio] 12.5 % Normal 11.0-15.0 [facility] Comment on above: Performed By: #### C BC #### [facility] [address] [place] [address] Dr. Kamaljit Browning Hematocrit (Bld) [Volume fraction] 40.5 % Critically low 42.0-54.0 [facility] Comment on above: Performed By: #### C BC #### [facility] [address] [place] [address] Dr. Kamaljit Browning Hemoglobin (Bld) [Mass/Vol] 13.5 g/dL Critically low 14.0-18.0 [facility] Comment on above: Performed By: #### C BC #### [facility] [address] [place] [address] Dr. Kamaljit Browning IG # 0.02 10e3/ul Normal 0.00-0.03 [facility] Comment on above: Performed By: #### C BC #### [facility] [address] [place] [address] Dr. Kamaljit Browning IG % 0.3 % Normal 0.0-0.5 [facility] Comment on above: Performed By: #### C BC #### [facility] [address] [place] [address] Dr. Kamaljit Browning LYMPH # 1.0 103/ul Critically low 1.2-3.8 [facility] Comment on above: Performed By: #### C BC #### [facility] [address] [place] [address] Dr. Kamaljit Browning Lymphocytes/100 WBC (Bld) 14.8 % Critically low 20.5-60.0 [facility] Comment on above: Performed By: #### C BC #### [facility] [address] [place] [address] Dr. Kamaljit Browning MANUAL DIFF REQ NO Normal [facility] Comment on above: Performed By: #### C BC #### [facility] [address] [place] [address] Dr. Kamaljit Browning MCH (RBC) [Entitic mass] 30.3 pg Normal 25.9-34.0 [facility] Comment on above: Performed By: #### C BC #### [facility] [address] [place] [address] Dr. Kamaljit Browning MCHC (RBC) [Mass/Vol] 33.3 g/dL Normal 29.9-35.2 [facility] Comment on above: Performed By: #### C BC #### [facility] [address] [place] [address] Dr. Kamaljit Browning MCV (RBC) [Entitic vol] 91.0 fL Normal 80.0-94.0 [facility] Comment on above: Performed By: #### C BC #### [facility] [address] [address] [address] Kamaljit Browning MONO # 0.6 103/ul Normal 0.3-0.8 [facility] Comment on above: Performed By: #### C BC #### [facility] [address] [address] [address] Kamaljit Browning Monocytes/100 WBC (Bld) 9.0 % Normal 1.7-12.0 [facility] Comment on above: Performed By: #### C BC #### [facility] [address] [address] [address] Kamaljit Browning NEUT # 5.2 103/ul Normal 1.4-6.5 [facility] Comment on above: Performed By: #### C BC #### [facility] [address] [address] [address] Kamaljit Browning Neutrophils/100 WBC (Bld) 74.2 % Normal 43.0-75.0 [facility] Comment on above: Performed By: #### C BC #### [facility] [address] [address] [address] Kamaljit Browning Platelet mean volume (Bld) [Entitic vol] 12.7 fL Normal 9.5-13.5 [facility] Comment on above: Performed By: #### C BC #### [facility] [address] [address] [address] Kamaljit Browning PLT 114 103/ul Critically low 150-450 [facility] Comment on above: Performed By: #### C BC #### [facility] [address] [address] [address] Kamaljit Browning RBC 4.45 106/ul Critically low 4.70-6.10 [facility] Comment on above: Performed By: #### C BC #### [facility] [address] [address] [address] Kamaljit Browning WBC 7.0 103/ul Normal 4.0-11.0 [facility] Comment on above: Performed By: #### C BC #### [facility] [address] [address] [address] Kamaljit Browning MAGNESIUMon 12-18-2021 Magnesium [Mass/Vol] 2.1 mg/dL Normal 1.8-2.4 [facility] Comment on above: Performed By: #### C BC #### [facility] [address] [address] [address] Kamaljit Browning PROF CHEM 8 (BAS METB)on Anion gap [Moles/Vol] 13.2 mmol/L Normal [facility] Comment on above: Performed By: #### C BC #### [facility] [address] [address] [address] Kamaljit Browning Calcium [Mass/Vol] 8.7 mg/dL Normal 8.5-10.1 [facility] Comment on above: Performed By: #### C BC #### [facility] [address] [place] [address] Dr. Kamaljit Browning Chloride [Moles/Vol] 108 mmol/L Critically high 98-107 [facility] Comment on above: Performed By: #### C BC #### [facility] [address] [address] [address] Kamaljit Browning CO2 [Moles/Vol] 25.7 mmol/L Normal 21.0-32.0 [facility] Comment on above: Performed By: #### C BC #### [facility] [address] [address] [address] Kamaljit Browning Creatinine [Mass/Vol] 1.10 mg/dL Normal 0.70-1.30 [facility] Comment on above: Performed By: #### C BC #### [facility] [address] [address] [address] Kamaljit Browning EGFR-AF LAO >60 Normal >=60 [facility] Comment on above: Performed By: #### C BC #### [facility] [address] [place] [address] Dr. Kamaljit Browning EGFR-NON AF LAO >60 Normal >=60 [facility] Comment on above: Performed By: #### C BC #### [facility] [address] [address] [address] Kamaljit Browning Glucose [Mass/Vol] 118 mg/dL Critically high 74-106 [facility] Comment on above: Performed By: #### C BC #### [facility] [address] [address] [address] Kamaljit Browning Potassium [Moles/Vol] 3.9 mmol/L Normal 3.5-5.1 [facility] Comment on above: Performed By: #### C BC #### [facility] [address] [address] [address] Kamaljit Browning Sodium [Moles/Vol] 143 mmol/L Normal 136-145 [facility] Comment on above: Performed By: #### C BC #### [facility] [address] [address] [address] Kamaljit Browning Urea nitrogen [Mass/Vol] 12.0 mg/dL Normal 7.0-18.0 [facility] Comment on above: Performed By: #### C BC #### [facility] [address] [address] [address] Kamaljit Browning Urea nitrogen/Creatinine [Mass ratio] 10.9 mg/mg Normal [facility] Comment on above: Performed By: #### C BC #### [facility] [address] [address] [address] Kamaljit Browning PROTIMEon 12-18-2021 INR Coag (PPP) [Relative time] 2.47 {INR} Normal [facility] Comment on above: Performed By: #### C MP, BNP #### [facility] [address] [place] [address] Dr. Kamaljit Browning INR GUIDELINES SEE BELOW Normal [facility] Comment on above: Result Comment: NILDA RED INR: 2.0 - 3.0 CONDITIONS NOT LISTED BELOW 2.5 - 3.5 FOR PROSTHETIC HEART VALVE REPLACEMENT 2.5 - 3.5 RECURRENT THROMBOSIS Performed By: #### C MP, BNP #### [facility] [address] [place] [address] Dr. Kamaljit Browning PT Coag (PPP) [Time] 25.1 s Critically high 9.0-11.6 [facility] Comment on above: Performed By: #### C MP, BNP #### [facility] [address] [place] [address] Dr. Kamaljit Browning TSHon 12-18-2021 TSH 1.850 uIU/mL Normal 0.358-3.740 [facility] Comment on above: Performed By: #### C BC #### [facility] [address] [place] [address] Dr. Kamaljit Browning BNPon 12-17-2021 Natriuretic peptide B (Bld) [Mass/Vol] 50.0 pg/mL Normal <=900.0 [facility] Comment on above: Performed By: #### A 1C #### [facility] [address] [place] [address] Dr. Kamaljit Browning CBC AUTO DIFFon 12-17-2021 BASO # 0.1 103/ul Normal 0.0-0.1 [facility] Comment on above: Performed By: #### C BC #### [facility] [address] [place] [address] Dr. Kamaljit Browning Basophils/100 WBC (Bld) 1.0 % Normal 0.2-2.0 [facility] Comment on above: Performed By: #### C BC #### [facility] [address] [place] [address] Dr. Kamaljit Browning EO # 0.1 103/ul Normal 0.0-0.7 [facility] Comment on above: Performed By: #### C BC #### [facility] [address] [place] [address] Dr. Kamaljit Browning Eosinophils/100 WBC (Bld) 1.2 % Normal 0.9-7.0 [facility] Comment on above: Performed By: #### C BC #### [facility] [address] [place] [address] Dr. Kamaljit Bronwing Erythrocyte distribution width (RBC) [Ratio] 12.4 % Normal 11.0-15.0 [facility] Comment on above: Performed By: #### C BC #### [facility] [address] [address] [address] Kamaljit Browning Hematocrit (Bld) [Volume fraction] 43.8 % Normal 42.0-54.0 [facility] Comment on above: Performed By: #### C BC #### [facility] [address] [address] [address] Kamaljit Browning Hemoglobin (Bld) [Mass/Vol] 14.4 g/dL Normal 14.0-18.0 [facility] Comment on above: Performed By: #### C BC #### [facility] [address] [place] [address] Dr. Kamaljit Browning IG # 0.02 10e3/ul Normal 0.00-0.03 [facility] Comment on above: Performed By: #### C BC #### [facility] [address] [place] [address] Dr. Kamaljit Browning IG % 0.3 % Normal 0.0-0.5 [facility] Comment on above: Performed By: #### C BC #### [facility] [address] [place] [address] Dr. Kamaljit Browning LYMPH # 1.1 103/ul Critically low 1.2-3.8 [facility] Comment on above: Performed By: #### C BC #### [facility] [address] [place] [address] Dr. Kamaljit Browning Lymphocytes/100 WBC (Bld) 18.5 % Critically low 20.5-60.0 [facility] Comment on above: Performed By: #### C BC #### [facility] [address] [place] [address] Dr. Kamaljit Browning MANUAL DIFF REQ NO Normal [facility] Comment on above: Performed By: #### C BC #### [facility] [address] [place] [address] Dr. Kamaljit Browning MCH (RBC) [Entitic mass] 30.2 pg Normal 25.9-34.0 [facility] Comment on above: Performed By: #### C BC #### [facility] [address] [place] [address] Dr. Kamaljit Browning MCHC (RBC) [Mass/Vol] 32.9 g/dL Normal 29.9-35.2 [facility] Comment on above: Performed By: #### C BC #### [facility] [address] [place] [address] Dr. Kamaljit Browning MCV (RBC) [Entitic vol] 91.8 fL Normal 80.0-94.0 [facility] Comment on above: Performed By: #### C BC #### [facility] [address] [place] [address] Dr. Kamaljit Browning MONO # 0.4 103/ul Normal 0.3-0.8 [facility] Comment on above: Performed By: #### C BC #### [facility] [address] [place] [address] Dr. Kamaljit Browning Monocytes/100 WBC (Bld) 7.4 % Normal 1.7-12.0 [facility] Comment on above: Performed By: #### C BC #### [facility] [address] [place] [address] Dr. Kamaljit Browning NEUT # 4.1 103/ul Normal 1.4-6.5 [facility] Comment on above: Performed By: #### C BC #### [facility] [address] [place] [address] Dr. Kamaljit Browning Neutrophils/100 WBC (Bld) 71.6 % Normal 43.0-75.0 [facility] Comment on above: Performed By: #### C BC #### [facility] [address] [place] [address] Dr. Kamaljit Browning Platelet mean volume (Bld) [Entitic vol] 12.4 fL Normal 9.5-13.5 [facility] Comment on above: Performed By: #### C BC #### [facility] [address] [place] [address] Dr. Kamaljit Browning PLT 111 103/ul Critically low 150-450 [facility] Comment on above: Performed By: #### C BC #### [facility] [address] [place] [address] Dr. Kamaljit Browning RBC 4.77 106/ul Normal 4.70-6.10 [facility] Comment on above: Performed By: #### C BC #### [facility] [address] [place] [address] Dr. Kamaljit Browning WBC 5.8 103/ul Normal 4.0-11.0 [facility] Comment on above: Performed By: #### C BC #### [facility] [address] [place] [address] Dr. Kamaljit Browning Covid-19 PCR ([facility])on 11-28 SARS-CoV-2 (COVID-19) RNA SOURAV+probe Ql (Unsp spec) Not detected Normal NOT DETECTED [facility] Comment on above: Result Comment: When [...] for this test is supported by the Software Developer [employer] of Health and Human Service's declaration that [...] Performed By: #### C MP, BNP #### [facility] [address] [place] [address] Dr. Kamaljit Browning PROF 14(COMP METB)on 022 Albumin [Mass/Vol] 4.3 g/dL Normal 3.4-5.0 [facility] Comment on above: Performed By: #### A 1C #### [facility] [address] [place] [address] Dr. Kamaljit Browning Albumin/Globulin [Mass ratio] 1.2 {ratio} Normal [facility] Comment on above: Performed By: #### A 1C #### [facility] [address] [address] [address] Kamaljit Browning ALP [Catalytic activity/Vol] 115 U/L Normal 46-116 [facility] Comment on above: Performed By: #### A 1C #### [facility] [address] [address] [address] Kamaljit Browning ALT [Catalytic activity/Vol] 35 U/L Normal 16-63 [facility] Comment on above: Performed By: #### A 1C #### [facility] [address] [address] [address] Kamaljit Browning Anion gap [Moles/Vol] 15.0 mmol/L Normal [facility] Comment on above: Performed By: #### A 1C #### [facility] [address] [place] [address] Dr. Kamaljit Browning AST [Catalytic activity/Vol] 26 U/L Normal 15-37 [facility] Comment on above: Performed By: #### A 1C #### [facility] [address] [place] [address] Dr. Kamaljit Browning Bilirubin [Mass/Vol] 0.5 mg/dL Normal 0.2-1.0 [facility] Comment on above: Performed By: #### A 1C #### [facility] [address] [place] [address] Dr. Kamaljit Browning Calcium [Mass/Vol] 8.6 mg/dL Normal 8.5-10.1 [facility] Comment on above: Performed By: #### A 1C #### [facility] [address] [place] [address] Dr. Kamaljit Browning Chloride [Moles/Vol] 106 mmol/L Normal 98-107 [facility] Comment on above: Performed By: #### A 1C #### [facility] [address] [place] [address] Dr. Kamaljit Browning CO2 [Moles/Vol] 24.0 mmol/L Normal 21.0-32.0 [facility] Comment on above: Performed By: #### A 1C #### [facility] [address] [address] [address] Kamaljit Browning Creatinine [Mass/Vol] 1.02 mg/dL Normal 0.70-1.30 [facility] Comment on above: Performed By: #### A 1C #### [facility] [address] [place] [address] Dr. Kamaljit Browning EGFR-AF LAO >60 Normal >=60 [facility] Comment on above: Performed By: #### A 1C #### [facility] [address] [address] [address] Kamaljit Browning EGFR-NON AF LAO >60 Normal >=60 [facility] Comment on above: Performed By: #### A 1C #### [facility] [address] [place] [address] Dr. Kamaljit Browning Globulin (S) [Mass/Vol] 3.5 g/dL Normal [facility] Comment on above: Performed By: #### A 1C #### [facility] [address] [address] [address] Kamaljit Browning Glucose [Mass/Vol] 138 mg/dL Critically high 74-106 [facility] Comment on above: Performed By: #### A 1C #### [facility] [address] [place] [address] Dr. Kamaljit Browning Potassium [Moles/Vol] 4.0 mmol/L Normal 3.5-5.1 [facility] Comment on above: Performed By: #### A 1C #### [facility] [address] [place] [address] Dr. Kamaljit Browning Protein [Mass/Vol] 7.8 g/dL Normal 6.4-8.2 [facility] Comment on above: Performed By: #### A 1C #### [facility] [address] [place] [address] Dr. Kamaljit Browning Sodium [Moles/Vol] 141 mmol/L Normal 136-145 [facility] Comment on above: Performed By: #### A 1C #### [facility] [address] [place] [address] Dr. Kamaljit Browning Urea nitrogen [Mass/Vol] 13.0 mg/dL Normal 7.0-18.0 [facility] Comment on above: Performed By: #### A 1C #### [facility] [address] [place] [address] Dr. Kamaljit Browning Urea nitrogen/Creatinine [Mass ratio] 12.7 mg/mg Normal [facility] Comment on above: Performed By: #### A 1C #### [facility] [address] [address] [address] Kamaljit Browning TROPONIN, HIGH SENSITIVITYon 12-17-2021 HSTROP 11.1 pg/mL Normal 4.0-76.1 [facility] Comment on above: Result Comment: CUT- OFF POINTS HAVE BEEN ESTABLISHED BASED ON THE FOURTH UNIVERSAL DEFINITIONS OF MYOCARDIAL INFARCTION. THE UPPER REFERENCE LIMIT (URL) OF TROPONIN, DEFINED THE 99TH PERCENTILE OF cTnI DISTRIBUTION IN A REFERENCE POPULATION, HAS BEEN CONFIRMED THE DECISION THRESHOLD FOR DE DIAGNOSIS. Performed By: #### A 1C #### [facility] [address] [place] [address] Dr. Kamaljit Browning Vital Signs Date Time Vital Sign Value Performing Clinician Faci lity 03-18-2023 14:09-0400 Blood Pressure Location Leo NILL [facility] 03-18-2023 14:09-0400 Diastolic blood pressure 86 mm[Hg] Leo NILL [facility] 03-18-2023 14:09-0400 Heart rate 70 /min Leo NILL [facility] 03-18-2023 14:09-0400 Respiratory rate 16 /min Leo NILL [facility] 03-18-2023 14:09-0400 Systolic blood pressure 130 mm[Hg] Leo NILL [facility] Encounters Encounter Date Encounter Type Care Provider Facility Start: 04-08-2023 End: 04-09-2023 ambulatory Leo TATE Facility:CD:[id number] Start: 03-18-2023 End: 03-19-2023 ambulatory Leo Melgar NILL Facility:[facility] Start: 03-18-2023 End: 03-18-2023 Patient encounter procedure [facility] Melgar [facility]Paula Villaseñor Start: 03-18-2023 End: 03-18-2023 ambulatory AB [facility] Start: 03-06-2023 ambulatory Leo BEBETO [facility] Start: 03-05-2023 ambulatory Leo TATE [facility] Start: 11-14-2022 End: 11-15-[address] PETRA [...] . Facility:[facility] Start: 05-29-2022 End: 06-29-2022 ambulatory SHAIKH Juan Luis HENDERSON Facility:[facility] Start: 04-29-2022 End: 05-28-2022 ambulatory SHAIKH Juan Luis HENDERSON Facility:[facility] Start: 03-30-2022 End: 04-28-2022 ambulatory SHAIKH Juan Luis HENDERSON Facility:[facility] Start: 03-12-2022 End: 03-13-[address] PETRA WOOTEN . Facility:[facility] Start: 02-27-2022 End: 03-29-2022 ambulatory SHAIKH Juan Luis HENDERSON Facility:[facility] Start: 01-27-2022 End: 02-26-2022 ambulatory H FAWWAD Facility:[facility] Start: 12-27-2021 End: 01-24-[address] PETRA WOOTEN . Facility:[facility] Start: 12-25-2021 End: 12-26-[address] PETRA WOOTEN . Facility:[facility] Start: 12-17-2021 End: 12-18-2021 Evaluation and management of inpatient DR PETRA WOOTEN . Facility: Procedures Date Procedure Procedure Detail Performing Clinician Start: 11-14-[address] LIZZIE WOOTEN . Comment on above: Performed By: #### C MP, BNP #### [facility] [address] [address] [address] 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 Immunizations Immunization Date Immunization Notes Care Provider Fa cili 04-03-2022 SARS-CoV-2 (COVID-19 ) [id number] Leo TATE [facility] 12-02-2021 SARS-CoV-2 mRNA (hhnlmjqhpul-miyb-yculf se) vaccine Leo TATE [facility] 03-23-2021 SARS-CoV-2 (COVID-19 ) mRNA BNT-162b2 vax Leo ADAMSL [facility] Comment on above: Result Comment: 2022: [id number] 08-30-2020 SARS-CoV-2 (COVID-19 ) mRNA BNT-162b2 vax Leo NILL [facility] Comment on above: Result Comment: 2022: [id number] 08-09-2020 SARS-CoV-2 (COVID-19 ) mRNA BNT-162b2 vax Leo NILL [facility] Comment on above: Result Comment: 2022: [id number] Payers Date Payer Category Payer Unknown [id number] 1957 Medicare [id number] 1957 Unknown [id number] 1957 Unknown [id number] 1952 Unknown [id number] 2.16.84 0.1.791714.3.579.2.593 1952 Unknown [id number] 2.16.84 0.1.111237.3.579.2.593 1952 Unknown [id number] 2.16.84 0.1.449489.3.579.2.593 1952 Unknown [id number] 2.16.84 0.1.172514.3.579.2.593 1952 Unknown [id number] 2.16.84 0.1.041890.3.579.2.593 1952 Unknown [id number] 2.16.84 0.1.148283.3.579.2.593 1952 Unknown [id number] 2.16.84 0.1.536276.3.579.2.593 1952 Unknown [id number] 2.16.84 0.1.076772.3.579.2.593 1952 Unknown [id number] 2.16.84 0.1.816825.3.579.2.593 1952 Unknown [id number] 2.16.84 0.1.238581.3.579.2.593 1952 Unknown [id number] 2.16.84 0.1.364645.3.579.2.593 1952 Unknown [id number] 2.16.84 0.1.303220.3.579.2.593 1952 Unknown [id number] 2.16.84 0.1.659321.3.579.2.593 1952 Unknown [id number] 2.16.84 0.1.372396.3.579.2.593 1952 Unknown [id number] 2.16.84 0.1.078110.3.579.2.593 1952 Unknown [id number] 2.16.84 0.1.349324.3.579.2.593 1952 Unknown [id number] 2.16.84 0.1.189528.3.579.2.593 1952 Unknown [id number] 2.16.8 40.1.694194.3.579.2.727 1952 Unknown [id number] 2.16.8 40.1.800364.3.579.2.727 1952 Unknown [id number] 2.16.8 40.1.817078.3.579.2.727 Social History Date Type Detail Facility Start: 03-18-2023 Tobacco smoking status Ex-smoker (fi nding) [facility] Tobacco smoking status Never [facility] Sex Assigned At Male [facility] Functional Status Date Assessment Result Facility 03-18-2023 Functional Status N/A [facility] Clinical Note 04-01-2023 Note Date & Type Note Facility 04-01-2023 Note [id number] #[id number]:127 Kiana from [facility] called stating he is ok to hold coumadin 4 days before procedure and will not need bridged, she will call pt tp inform him [facility] Comment on above: Result Comment: Elec tronically Signed By: Norma Barajas.br\Date and Time Signed: 04/01/23 11:59 EDT Clinical [...] held; Unasyn preop for SBE prophylaxis. 2. [facility] current use of anticoagulant (Z79.01: [facility] (current) use of anticoagulants) see # 1 Follow-up No qualifying data available Problem List/Past Medical History Ongoing BMI 35.0-35.9,adult CAD (coronary artery disease) Cardiomegaly Carotid bruit Chronic obstructive pulmonary disease Diverticular disease Essential hypertension Fecal occult blood test positive GERD (gastroesophageal reflux disease) Heart failure History of myocardial infarction Hyperlipidemia Internal hemorrhoids [facility] current use of anticoagulant Morbid obesity Sleep [...] mg= 1 ta (more content not included)... [facility] Comment on above: Result Comment: Elec tronically Signed By: BEBETO RODRIGUES, Leo Monae\Date and Time Signed: 03/18/23 14:47 EDT Progress note 03-18-2023 Note Date & Type Note Facility 03-18-2023 Note [facility] Card[facility] Clinic Note Chief Complaint: [...] - MILD I25.10: Atherosclerotic heart disease of [place] coronary artery without angina pectoris 3. Essential [...] problems arise Alayna Langley MD, MPH, FACC, [facility], [facility] Interventional Cardiology Pager Email: [email or web address] Evaluation + Plan note Note Date & Type Note Facility Evaluation + Plan note No data available for this section [facility] Discharge instructions Note Date & Type Note Facility Hospital Discharge instructions No data available for this section [facility] Progress note Note Date & Type Note Facility Progress note No data available for this section [facility] Summary Purpose Family History No Family History Records FoundNo Family History Records FoundNo Family History Records Found Advance Directives No Advanced Directives Records FoundNo Advanced Directives Records FoundNo Advanced Directives Records Found Additional Source Comments (unrecognized sect ion and content) No Status Records FoundNo Status Records FoundNo Status Records Found INFORMATION SOURCE (unrecogn ized section and content) DATE CREATED AUTHOR 12/05/2022 [facility] DATE CREATED AUTHOR AUTHOR'S ORGANIZ ATION 03/20/2023 [facility] DATE CREATED AUTHOR AUTHOR'S ORGANIZ ATION 04/28/2023 [facility] Patient Care team informatio n (unrecognized section and content) Personnel Name: Petra Wooten MD Address: Address: [address] [place] [address] FOR RECORDS PERTAINING TO PATIENTS WHO ARE [...] BE BASED ON THE PRIMARY CLINICAL RECORDS. [facility]. provides no warranty or guarantee of the accuracy or completeness of information in this document.
== END 2024-01-12 12:55 | disposition home or self-care (01) ==
LOC: CARD 12:55
PROVIDERS: PCP Family Medicine; Visit Provider Family Medicine
DX: R09.89 Other specified symptoms and signs involving the circulatory and respiratory systems (principal); I10 Essential (primary) hypertension; R55 Syncope and collapse
CPT/HCPCS: 93246

== ENCOUNTER 2024-01-28 00:35 | Outpatient (RCR) | payer MEDICARE, SELFPAY | END 2024-02-26 10:07 | disposition home or self-care (01) | LOC: MM 00:35 | PROVIDERS: PCP Family Medicine; Visit Provider Internal Medicine | DX: Z51.81 Encounter for therapeutic drug level monitoring (principal); Z79.01 Long term (current) use of anticoagulants; I48.91 Unspecified atrial fibrillation | CPT/HCPCS: 85610; G0463 ==

== ENCOUNTER 2024-02-17 06:42 | Outpatient (OUT) | payer MEDICARE, SELFPAY ==
--- NOTE | 2024-02-17 06:42 | PCN_ITS ---
CARDIAC STRESS TEST ? Requesting Physician:? Alayna Langley M.D. ? Procedure Date:? 02/17/2024 ? PERFORMING PROVIDER:? Ciaran Frederick M.D. ? INDICATION:? Dizziness, NSVT. ? STRESS TEST PROTOCOL:? Lexiscan myocardial perfusion imaging. ? Resting heart rate:? 53 Max heart rate:? 70 Peak maximal heart rate percentage:? 47 Resting blood pressure:? 122/92 Maximum blood pressure:? 122/92 Reason for termination:? Completion of test. ST changes:? No ST changes meeting the criteria for ischemia. Symptoms:? No symptoms. Arrhythmias:? Isolated PVC. ? CONCLUSION: 1.? Resting EKG demonstrate sinus bradycardia. 2.? There were no EKG changes meeting the criteria for ischemia post Lexiscan infusion. 3.? Please refer to separately interpreted and reported nuclear myocardial perfusion imaging. [facility]
--- OUTSIDE RECORDS SUMMARY | 2024-02-17 06:47 | XMS_ITS | CCD ---
Author Organization [facility] Care Team Providers Care Stage Hand Name Role Phone EMANUEL ., DR LAMBERT [...] Unavailable HOY ., DR LAMBERT Attending Unavailable DAYTON, DR LISBET Santamaria Consulting Unavailable GAGE CARTER Consulting Unavailable HOY ., DR LAMBERT Primary Care Unavailable HOY ., DR LAMBERT Admitting Unavailable HOY ., DR LAMBERT Consulting Unavailable HOY ., DR LAMBERT Attending Unavailable HOY ., DR LAMBERT Primary Care Unavailable ELTAHAWY, DR FLEMING Consulting Unavailable ELTAMASON, DR FLEMING Attending Unavailable JULIO, DR FLEMNIG Admitting Unavailable Petra Wooten Primary Care Physician [phone] Leo TATE Attending Unavailable Leo TATE Attending Unavailable [facility]IUM[facility]ica, ALAYNA Attending Unavailable JULIO, ALAYNA Attending Unavailable Allergies Allergy Classification Reported Allergen(s) Allergy Type Date of Onset Reaction(s) Facility (1 source) No Known Medication Allergies; Translations: [No Known Medication Allergies] Propensity to adverse reactions (disorder) [facility] Repository Medications Current Medications Medication Drug Class(es) [...] obstructive lung disease] Onset: 01-01-2022 03-13-2023 Chronic Conditions associated with dizziness or vertigo (2 sources) Dizziness and giddiness; Translations: [Dizziness and giddiness] Onset: 02-01-2024 Episodic Congestive heart failure; nonhypertensive (2 sources) Heart [...] disease] Onset: 11-17-2022 03-13-2023 Chronic Essential hypertension (7 sources) Essential (primary) hypertension; Translations: [Essential hypertension] [...] Onset: 01-01-2022 Episodic Other aftercare (1 source) 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 (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) use of anticoagulants; Translations: [PRISON CURRNT USE ANTICOAGULANTS] Onset: 11-26-2022 Episodic Other aftercare (2 sources) Long-term current use of anticoagulant; Translations: [residential (current) use of anticoagulants] Onset: 03-18-2023 Episodic [...] disorders (1 source) Nicotine dependence 03-18-2023 Chronic Syncope (2 sources) Syncope and collapse; Translations: [Syncope and collapse] Onset: 02-01-2024 Episodic Unclassified (1 source) PERSONAL HISTORY OF COVID-19; [...] Other shelter (current) drug therapy; Translations: [OTH PRISON CURRENT DRUG THERAPY] Onset: 06-11-2022 Episodic Other aftercare (1 source) residential (current) use of aspirin; Translations: [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ALAYNA LANGLEY C[facility] Family History Problem Relation Age of Onset No Known Problems Mother No Known Problems Father Family Status - Relation Status Age at Mother Father Level of Service:07406 NM OFFICE/OUTPATIENT ESTABLISHED MOD MDM 30 MIN Normal [facility] Outside Colonoscopyon 2022 Outside Colonoscopy [id number] .[id number] Normal [facility] Reminderson 04-09-2023 Reminders - From: Karlene Stewart LPN To: N - Clinical; Sent: 04/09/2023 10:49:10 EDT Show up: 03/09/2033 07:00:00 EDT Subject: colonoscopy recall Due Date/Time: 04/08/2033 07:00:00 EDT Reminder/Recall Patient due for screening colonoscopy 04/08/2033. 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 Nicotine dependence Normal [facility] Office Visiton 03-18-2023 Follow-up visit [id number] Martin [place] 1950 M Date Provider Department Center 03/18/2023 [id number], MARLONAB BH CARD [facility] No family history on file Level of Service:70641 NM OFFICE/OUTPATIENT ESTABLISHED LOW MDM 20-29 MIN Normal [facility] Physician Referralon 023 Physician Referral [id number]. 00CD:127 Normal [facility] INSULINon 11-15-2022 Insulin 20.3 uIU/mL Normal 2.6-24.9 [facility] Comment on above: Performed By: #### I NSULIN #### [facility] [address] [place] [address] Dr. Kamaljit Browning CBC AUTO DIFFon 11-14-2022 BASO # 0.0 103/ul Normal 0.0-0.1 [facility] Comment on above: Performed By: #### C MP, BNP #### [facility] [address] [place] [address] Dr. Kamaljit Browning Basophils/100 WBC (Bld) 0.8 % Normal 0.2-2.0 [facility] Comment on above: Performed By: #### C MP, BNP #### [facility] [address] [place] [address] Dr. Kamaljit Browning EO # 0.1 103/ul Normal 0.0-0.7 [facility] Comment on above: Performed By: #### C MP, BNP #### [facility] [address] [place] [address] Dr. Kamaljit Browning Eosinophils/100 WBC (Bld) 1.7 % Normal 0.9-7.0 [facility] Comment on above: Performed By: #### C MP, BNP #### [facility] [address] [place] [address] Dr. Kamaljit Browning Erythrocyte distribution width (RBC) [Ratio] 12.7 % Normal 11.0-15.0 [facility] Comment on above: Performed By: #### C MP, BNP #### [facility] [address] [place] [address] Dr. Kamaljit Browning Hematocrit (Bld) [Volume fraction] 38.4 % Critically low 42.0-54.0 [facility] Comment on above: Performed By: #### C MP, BNP #### [facility] [address] [place] [address] Dr. Kamaljit Browning Hemoglobin (Bld) [Mass/Vol] 12.8 g/dL Critically low 14.0-18.0 [facility] Comment on above: Performed By: #### C MP, BNP #### [facility] [address] [place] [address] Dr. Kamaljit Browning IG # 0.02 10e3/ul Normal 0.00-0.03 [facility] Comment on above: Performed By: #### C MP, BNP #### [facility] [address] [place] [address] Dr. Kamaljit Browning IG % 0.4 % Normal 0.0-0.5 [facility] Comment on above: Performed By: #### C MP, BNP #### [facility] [address] [place] [address] Dr. Kamaljit Browning LYMPH # 0.8 103/ul Critically low 1.2-3.8 [facility] Comment on above: Performed By: #### C MP, BNP #### [facility] [address] [place] [address] Dr. Kamaljit Browning Lymphocytes/100 WBC (Bld) 15.2 % Critically low 20.5-60.0 [facility] Comment on above: Performed By: #### C MP, BNP #### [facility] [address] [place] [address] Dr. Kamaljit Browning MANUAL DIFF REQ NO Normal [facility] Comment on above: Performed By: #### C MP, BNP #### [facility] [address] [place] [address] Dr. Kamaljit Browning MCH (RBC) [Entitic mass] 30.6 pg Normal 25.9-34.0 [facility] Comment on above: Performed By: #### C MP, BNP #### [facility] [address] [place] [address] Dr. Kamaljit Browning MCHC (RBC) [Mass/Vol] 33.3 g/dL Normal 29.9-35.2 [facility] Comment on above: Performed By: #### C MP, BNP #### [facility] [address] [place] [address] Dr. Kamaljit Browning MCV (RBC) [Entitic vol] 91.9 fL Normal 80.0-94.0 [facility] Comment on above: Performed By: #### C MP, BNP #### [facility] [address] [place] [address] Dr. Kamaljit Browning MONO # 0.5 103/ul Normal 0.3-0.8 [facility] Comment on above: Performed By: #### C MP, BNP #### [facility] [address] [place] [address] Dr. Kamaljit Browning Monocytes/100 WBC (Bld) 8.9 % Normal 1.7-12.0 [facility] Comment on above: Performed By: #### C MP, BNP #### [facility] [address] [place] [address] Dr. Kamaljit Browning NEUT # 3.8 103/ul Normal 1.4-6.5 [facility] Comment on above: Performed By: #### C MP, BNP #### [facility] [address] [place] [address] Dr. Kamaljit Browning Neutrophils/100 WBC (Bld) 73.0 % Normal 43.0-75.0 [facility] Comment on above: Performed By: #### C MP, BNP #### [facility] [address] [place] [address] Dr. Kamaljit Browning Platelet mean volume (Bld) [Entitic vol] 12.5 fL Normal 9.5-13.5 [facility] Comment on above: Performed By: #### C MP, BNP #### [facility] [address] [place] [address] Dr. Kamaljit Browning PLT 126 103/ul Critically low 150-450 [facility] Comment on above: Performed By: #### C MP, BNP #### [facility] [address] [place] [address] Dr. Kamaljit Browning RBC 4.18 106/ul Critically low 4.70-6.10 [facility] Comment on above: Performed By: #### C MP, BNP #### [facility] [address] [address] [address] Kamaljit Browning WBC 5.2 103/ul Normal 4.0-11.0 [facility] Comment on above: Performed By: #### C MP, BNP #### [facility] [address] [address] [address] Kamaljit Browning FREE THYROXINE INDEX T7on FTI 2.31 Normal 1.30-4.50 [facility] Comment on above: Performed By: #### C BC #### [facility] [address] [place] [address] Dr. Kamaljit Browning T3U 34.0 % Normal 33.0-40.0 [facility] Comment on above: Performed By: #### C BC #### [facility] [address] [place] [address] Dr. Kamaljit Browning T4 [Mass/Vol] 6.80 ug/dL Normal 4.50-12.10 [facility] Comment on above: Performed By: #### C BC #### [facility] [address] [place] [address] Dr. Kamaljit Browning GLYCOHEMOGLOBIN A1Con 2022 ADA RECOMMENDATION SEE BELOW Normal [facility] Comment on above: Result Comment: ADA RECOMMENDED LIMIT 4.0 - 6.0 ADA THERAPEUTIC TARGET < 7.0 ACTION SUGGESTED > 7.0 Performed By: #### A 1C #### [facility] [address] [place] [address] Dr. Kamaljit Browning Glucose [Mass/Vol] 154 mg/dL Normal [facility] Comment on above: Performed By: #### A 1C #### [facility] [address] [place] [address] Dr. Kamaljit Browning HbA1c (Bld) [Mass fraction] 7.0 % Critically high 4.5-6.2 [facility] Comment on above: Performed By: #### A 1C #### [facility] [address] [place] [address] Dr. Kamaljit Browning LIPID PROFILEon 11-14-2022 CHOL-HDL RATIO NORM SEE BELOW Normal [facility] Comment on above: Result Comment: 3.3 - 4.4 LOW RISK 4.4 - 7.1 AVERAGE RISK 7.1 - 11.0 MODERATE RISK >11.0 HIGH RISK Performed By: #### A 1C #### [facility] [address] [address] [address] Kamaljit Browning Cholesterol [Mass/Vol] 148 mg/dL Normal <=200 [facility] Comment on above: Performed By: #### A 1C #### [facility] [address] [address] [address] Kamaljit Browning Cholesterol in HDL [Mass/Vol] 41 mg/dL Normal 40-60 [facility] Comment on above: Performed By: #### A 1C #### [facility] [address] [place] [address] Dr. Kamaljit Browning Cholesterol in LDL [Mass/Vol] 81.6 mg/dL Normal [facility] Comment on above: Performed By: #### A 1C #### [facility] [address] [address] [address] Kamaljit Browning Cholesterol.total/Ch olesterol in HDL [Mass ratio] 3.6 {ratio} Normal [facility] Comment on above: Performed By: #### A 1C #### [facility] [address] [place] [address] Dr. Kamaljit Browning HDL NORMAL > or = 60 mg/dl - LO W CARDIOVASCULAR RISK <40 mg/dl - HIGH CARDIOVASCULAR RISK Normal [facility] Comment on above: Performed By: #### A 1C #### [facility] [address] [address] [address] Kamaljit Browning LDL CALC NORMAL SEE BELOW Normal [facility] Comment on above: Result Comment: <100 mg/dl OPTIMAL 100 - 129 mg/dl NEAR OR ABOVE OPTIMAL 130 - 159 mg/dl BORDERLINE HIGH 160 - 189 mg/dl HIGH >190 mg/dl VERY HIGH Performed By: #### A 1C #### [facility] [address] [address] [address] Kamaljit Browning Triglyceride [Mass/Vol] 127 mg/dL Normal <=150 [facility] Comment on above: Performed By: #### A 1C #### [facility] [address] [place] [address] Dr. Kamaljit Browning VLDL CALC 25.4 mg/dL Normal [facility] Comment on above: Performed By: #### A 1C #### [facility] [address] [place] [address] Dr. Kamaljit Browning PROF 14(COMP METB)on 023 Albumin [Mass/Vol] 4.2 g/dL Normal 3.4-5.0 [facility] Comment on above: Performed By: #### A 1C #### [facility] [address] [place] [address] Dr. Kamaljit Browning Albumin/Globulin [Mass ratio] 1.3 {ratio} Normal [facility] Comment on above: Performed By: #### A 1C #### [facility] [address] [place] [address] Dr. Kamaljit Browning ALP [Catalytic activity/Vol] 79 U/L Normal 46-116 [facility] Comment on above: Performed By: #### A 1C #### [facility] [address] [place] [address] Dr. Kamaljit Browning ALT [Catalytic activity/Vol] 27 U/L Normal 16-63 [facility] Comment on above: Performed By: #### A 1C #### [facility] [address] [place] [address] Dr. Kamaljit Browning Anion gap [Moles/Vol] 15.0 mmol/L Normal [facility] Comment on above: Performed By: #### A 1C #### [facility] [address] [place] [address] Dr. Kamaljit Browning AST [Catalytic activity/Vol] 23 U/L Normal 15-37 [facility] Comment on above: Performed By: #### A 1C #### [facility] [address] [place] [address] Dr. Kamaljit Brownign Bilirubin [Mass/Vol] 0.3 mg/dL Normal 0.2-1.0 [facility] Comment on above: Performed By: #### A 1C #### [facility] [address] [place] [address] Dr. Kamaljit Browning Calcium [Mass/Vol] 9.0 mg/dL Normal 8.5-10.1 [facility] Comment on above: Performed By: #### A 1C #### [facility] [address] [address] [address] Kamaljit Browning Chloride [Moles/Vol] 105 mmol/L Normal 98-107 [facility] Comment on above: Performed By: #### A 1C #### [facility] [address] [address] [address] Kamaljit Browning CO2 [Moles/Vol] 24.7 mmol/L Normal 21.0-32.0 [facility] Comment on above: Performed By: #### A 1C #### [facility] [address] [place] [address] Dr. Kamaljit Browning Creatinine [Mass/Vol] 1.55 mg/dL Critically high 0.70-1.30 [facility] Comment on above: Performed By: #### A 1C #### [facility] [address] [place] [address] Dr. Kamaljit Browning EGFR-AF SAO TOMEAN 54 mL/min/1.73m2 Critically low >=60 [facility] Comment on above: Performed By: #### A 1C #### [facility] [address] [place] [address] Dr. Kamaljit Browning EGFR-NON AF SAO TOMEAN 45 mL/min/1.73m2 Critically low >=60 [facility] Comment on above: Performed By: #### A 1C #### [facility] [address] [address] [address] Kamaljit Browning Globulin (S) [Mass/Vol] 3.3 g/dL Normal [facility] Comment on above: Performed By: #### A 1C #### [facility] [address] [place] [address] Dr. Kamaljit Browning Glucose [Mass/Vol] 129 mg/dL Critically high 74-106 [facility] Comment on above: Performed By: #### A 1C #### [facility] [address] [place] [address] Dr. Kamaljit Browning Potassium [Moles/Vol] 4.7 mmol/L Normal 3.5-5.1 [facility] Comment on above: Performed By: #### A 1C #### [facility] [address] [place] [address] Dr. Kamaljit Browning Protein [Mass/Vol] 7.5 g/dL Normal 6.4-8.2 [facility] Comment on above: Performed By: #### A 1C #### [facility] [address] [place] [address] Dr. Kamaljit Browning Sodium [Moles/Vol] 140 mmol/L Normal 136-145 [facility] Comment on above: Performed By: #### A 1C #### [facility] [address] [place] [address] Dr. Kamaljit Browning Urea nitrogen [Mass/Vol] 30.0 mg/dL Critically high 7.0-18.0 [facility] Comment on above: Performed By: #### A 1C #### [facility] [address] [place] [address] Dr. Kamaljit Browning Urea nitrogen/Creatinine [Mass ratio] 19.4 mg/mg Normal [facility] Comment on above: Performed By: #### A 1C #### [facility] [address] [place] [address] Dr. Kamaljit Browning TSHon 11-14-2022 TSH 1.597 uIU/mL Normal 0.358-3.740 [facility] Comment on above: Performed By: #### A 1C #### [facility] [address] [place] [address] Dr. Kamaljit Browning URIC ACID SERUMon 11-14-2022 Urate [Mass/Vol] 9.4 mg/dL Critically high 3.5-7.2 [facility] Comment on above: Performed By: #### C BC #### [facility] [address] [place] [address] Dr. Kamaljit Browning OCC BLD IMMUNO SCREENon 10-27 OCCULT BLOOD Positive Abnormal NEGATIVE [facility] Comment on above: Performed By: #### C MP, BNP #### [facility] [address] [place] [address] Dr. Kamaljit Browning POINT OF CARE GLUCOSEon 05-29 Glucose [Mass/Vol] 329 mg/dL Critically high 74-106 T he [facility] Comment on above: Performed By: #### A 1C #### [facility] [address] [place] [address] [id number] [address] Kamaljit Browning Covid-19 PCR ([facility])on SARS-CoV-2 (COVID-19) RNA SOURAV+probe Ql (Unsp spec) Not detected Normal NOT DETECTED [facility] Comment on above: Result Comment: When [...] for this test is supported by the [employer] of [employer] and Human Service's declaration that [...] used). Performed By: #### A 1C #### [facility] [address] [place] [address] Dr. Kamaljit Browning INFLUENZA A AND B AGon 06-02 INFLUANEGH SEE BELOW Normal [facility] Comment on above: Result Comment: Nega tive for Flu A protein angiten. Infection due to Flu A cannot be ruled out. Flu A angiten in the sample may be below the detection limit of the test. Performed By: #### C BC #### [facility] [address] [place], [place] [id number] Dr. Kamaljit Browning INFLUBNEG SEE BELOW Normal [facility] Comment on above: Result Comment: Nega tive for Flu B protein antigen. Infection due to Flu B cannot be ruled out. Flu B antigen in the sample may be below the detection limit of the test. Performed By: #### C BC #### [facility] [address] [place] [address] Dr. Kamaljit Browning INFLUENZA A AG Negative Normal NEGATIVE SEE COMMENT [facility] Comment on above: Performed By: #### C BC #### [facility] [address] [place] [address] Dr. Kamaljit Browning INFLUENZA B AG Negative Normal NEGATIVE SEE COMMENT [facility] Comment on above: Performed By: #### C BC #### [facility] [address] [place] [address] Dr. Kamaljit Browning INTERNAL CONTROLS Within Normal Limits Normal Wi thin Normal Limits [facility] Comment on above: Performed By: #### C BC #### [facility] [address] [place] [address] Dr. Kamaljit Browning PROF CHEM 8 (BAS METB)on Anion gap [Moles/Vol] 13.1 mmol/L Normal [facility] Comment on above: Performed By: #### C BC #### [facility] [address] [place] [address] Dr. Kamaljit Browning Calcium [Mass/Vol] 8.9 mg/dL Normal 8.5-10.1 [facility] Comment on above: Performed By: #### C BC #### [facility] [address] [place] [address] Dr. Kamaljit Browning Chloride [Moles/Vol] 105 mmol/L Normal 98-107 [facility] Comment on above: Performed By: #### C BC #### [facility] [address] [place] [address] Dr. Kamaljit Browning CO2 [Moles/Vol] 27.3 mmol/L Normal 21.0-32.0 [facility] Comment on above: Performed By: #### C BC #### [facility] [address] [place] [address] Dr. Kamaljit Browning Creatinine [Mass/Vol] 1.28 mg/dL Normal 0.70-1.30 [facility] Comment on above: Performed By: #### C BC #### [facility] [address] [address] [address] Kamaljit Browning EGFR-AF SAO TOMEAN >60 Normal >=60 [facility] [facility] Comment on above: Performed By: #### C BC #### [facility] [address] [address] [address] Kamaljit Browning EGFR-NON AF SAO TOMEAN 56 mL/min/1.73m2 Critically low >=60 [facility] Comment on above: Performed By: #### C BC #### [facility] [address] [address] [address] Kamaljit Browning Glucose [Mass/Vol] 119 mg/dL Critically high 74-106 [facility] Comment on above: Performed By: #### C BC #### [facility] [address] [address] [address] Kamaljit Browning Potassium [Moles/Vol] 4.4 mmol/L Normal 3.5-5.1 [facility] Comment on above: Performed By: #### C BC #### [facility] [address] [address] [address] Kamaljit Browning Sodium [Moles/Vol] 141 mmol/L Normal 136-145 [facility] Comment on above: Performed By: #### C BC #### [facility] [address] [address] [address] Kamaljit Browning Urea nitrogen [Mass/Vol] 20.0 mg/dL Critically high 7.0-18.0 [facility] Comment on above: Performed By: #### C BC #### [facility] [address] [address] [address] Kamaljit Browning Urea nitrogen/Creatinine [Mass ratio] 15.6 mg/mg Normal [facility] Comment on above: Performed By: #### C BC #### [facility] [address] [address] [address] Kamaljit Browning METANEPHRINES PLASMA FREEon 01-18-2022 Metanephrine, Pl 46.2 pg/mL Normal 0.0-88.0 [facility] Comment on above: Performed By: #### C MP, BNP #### [facility] [address] [place] [address] Dr. Kamaljit Browning Normetanephrine, Pl 33.2 pg/mL Normal 0.0-285.2 [facility] Comment on above: Performed By: #### C MP, BNP #### [facility] [address] [place] [address] Dr. Kamaljit Browning ALDOSTERONE: RENIN RATIOon 0 01-08-2022 Aldos/Renin Ratio UPTCAL Normal [facility] Comment on above: Result Comment: Unab le to calculate result since non-numeric result obtained for component test. Units: ng/dL per ng/mL/hr Performed By: #### A LDOREN #### [facility] [address] [place] [address] Dr. Kamaljit Browning Aldosterone <1.0 Normal 0.0-30.0 [facility] Comment on above: Performed By: #### A LDOREN #### [facility] [address] [place] [address] Dr. Kamaljit Browning Renin Activity, Plasma <0.167 Critically low 0.167-5.380 [facility] Comment on above: Performed By: #### A LDOREN #### [facility] [address] [place] [address] Dr. Kamaljit Browning CATECHOLAMINES FRAC, PLASMAo n 12-31-2021 Dopamine, Pl <30 Normal 0-48 [facility] Comment on above: Performed By: #### C MP, BNP #### [facility] [address] [place] [address] Dr. Kamaljit Browning Epinephrine, Pl 58 pg/mL Normal 0-62 [facility] Comment on above: Performed By: #### C MP, BNP #### [facility] [address] [place] [address] Dr. Kamaljit Browning Norepinephrine, Pl 246 pg/mL Normal 0-874 [facility] Comment on above: Performed By: #### C MP, BNP #### [facility] [address] [place] [address] Dr. Kamaljit Browning BNPon 12-26-2021 Natriuretic peptide B (Bld) [Mass/Vol] 126.0 pg/mL Normal <=900.0 [facility] Comment on above: Performed By: #### C MP, BNP #### [facility] [address] [place] [address] Dr. Kamaljit Browning CBC AUTO DIFFon 12-26-2021 BASO # 0.1 103/ul Normal 0.0-0.1 [facility] Comment on above: Performed By: #### C BC #### [facility] [address] [place] [address] Dr. Kamaljit Browning Basophils/100 WBC (Bld) 0.9 % Normal 0.2-2.0 [facility] Comment on above: Performed By: #### C BC #### [facility] [address] [place] [address] Dr. Kamaljit Browning EO # 0.1 103/ul Normal 0.0-0.7 [facility] Comment on above: Performed By: #### C BC #### [facility] [address] [place] [address] Dr. Kamaljit Browning Eosinophils/100 WBC (Bld) 1.0 % Normal 0.9-7.0 [facility] Comment on above: Performed By: #### C BC #### [facility] [address] [place] [address] Dr. Kamaljit Browning Erythrocyte distribution width (RBC) [Ratio] 12.1 % Normal 11.0-15.0 [facility] Comment on above: Performed By: #### C BC #### [facility] [address] [place] [address] Dr. Kamaljit Browning Hematocrit (Bld) [Volume fraction] 39.2 % Critically low 42.0-54.0 [facility] Comment on above: Performed By: #### C BC #### [facility] [address] [place] [address] Dr. Kamaljit Browning Hemoglobin (Bld) [Mass/Vol] 13.2 g/dL Critically low 14.0-18.0 [facility] Comment on above: Performed By: #### C BC #### [facility] [address] [place] [address] Dr. Kamaljit Browning IG # 0.01 10e3/ul Normal 0.00-0.03 [facility] Comment on above: Performed By: #### C BC #### [facility] [address] [place] [address] Dr. Kamaljit Browning IG % 0.2 % Normal 0.0-0.5 [facility] Comment on above: Performed By: #### C BC #### [facility] [address] [place] [address] Dr. Kamaljit Browning LYMPH # 1.1 103/ul Critically low 1.2-3.8 [facility] Comment on above: Performed By: #### C BC #### [facility] [address] [place] [address] Dr. Kamaljit Browning Lymphocytes/100 WBC (Bld) 18.5 % Critically low 20.5-60.0 [facility] Comment on above: Performed By: #### C BC #### [facility] [address] [place] [address] Dr. Kamaljit Browning MANUAL DIFF REQ NO Normal [facility] Comment on above: Performed By: #### C BC #### [facility] [address] [place] [address] Dr. Kamaljit Browning MCH (RBC) [Entitic mass] 30.5 pg Normal 25.9-34.0 [facility] Comment on above: Performed By: #### C BC #### [facility] [address] [place] [address] Dr. Kamaljit Browning MCHC (RBC) [Mass/Vol] 33.7 g/dL Normal 29.9-35.2 [facility] Comment on above: Performed By: #### C BC #### [facility] [address] [place] [address] Dr. Kamaljit Browning MCV (RBC) [Entitic vol] 90.5 fL Normal 80.0-94.0 [facility] Comment on above: Performed By: #### C BC #### [facility] [address] [place] [address] Dr. Kamaljit Browning MONO # 0.4 103/ul Normal 0.3-0.8 [facility] Comment on above: Performed By: #### C BC #### [facility] [address] [address] [address] Kamaljit Browning Monocytes/100 WBC (Bld) 7.7 % Normal 1.7-12.0 [facility] Comment on above: Performed By: #### C BC #### [facility] [address] [address] [address] Kamaljit Browning NEUT # 4.1 103/ul Normal 1.4-6.5 [facility] Comment on above: Performed By: #### C BC #### [facility] [address] [place] [address] Dr. Kamaljit Bronwing Neutrophils/100 WBC (Bld) 71.7 % Normal 43.0-75.0 [facility] Comment on above: Performed By: #### C BC #### [facility] [address] [place] [address] Dr. Kamaljit Browning Platelet mean volume (Bld) [Entitic vol] 12.9 fL Normal 9.5-13.5 [facility] Comment on above: Performed By: #### C BC #### [facility] [address] [place] [address] Dr. Kamaljit Browning PLT 129 103/ul Critically low 150-450 [facility] Comment on above: Performed By: #### C BC #### [facility] [address] [address] [address] Kamaljit Browning RBC 4.33 106/ul Critically low 4.70-6.10 [facility] Comment on above: Performed By: #### C BC #### [facility] [address] [place] [address] Dr. Kamaljit Browning WBC 5.7 103/ul Normal 4.0-11.0 [facility] Comment on above: Performed By: #### C BC #### [facility] [address] [place] [address] Dr. Kamaljit Browning PROF 14(COMP METB)on 022 Albumin [Mass/Vol] 3.9 g/dL Normal 3.4-5.0 [facility] Comment on above: Performed By: #### C MP, BNP #### [facility] [address] [place] [address] Dr. Kamaljit Browning Albumin/Globulin [Mass ratio] 1.2 {ratio} Normal [facility] Comment on above: Performed By: #### C MP, BNP #### [facility] [address] [place] [address] Dr. Kamaljit Browning ALP [Catalytic activity/Vol] 83 U/L Normal 46-116 [facility] Comment on above: Performed By: #### C MP, BNP #### [facility] [address] [place] [address] Dr. Kamaljit Browning ALT [Catalytic activity/Vol] 30 U/L Normal 16-63 [facility] Comment on above: Performed By: #### C MP, BNP #### [facility] [address] [place] [address] Dr. Kamaljit Browning Anion gap [Moles/Vol] 12.6 mmol/L Normal [facility] Comment on above: Performed By: #### C MP, BNP #### [facility] [address] [place] [address] Dr. Kamaljit Browning AST [Catalytic activity/Vol] 28 U/L Normal 15-37 [facility] Comment on above: Performed By: #### C MP, BNP #### [facility] [address] [place] [address] Dr. Kamaljit Browning Bilirubin [Mass/Vol] 0.6 mg/dL Normal 0.2-1.0 [facility] Comment on above: Performed By: #### C MP, BNP #### [facility] [address] [place] [address] Dr. Kamaljit Browning Calcium [Mass/Vol] 8.9 mg/dL Normal 8.5-10.1 [facility] Comment on above: Performed By: #### C MP, BNP #### [facility] [address] [place] [address] Dr. Kamaljit Browning Chloride [Moles/Vol] 107 mmol/L Normal 98-107 [facility] Comment on above: Performed By: #### C MP, BNP #### [facility] [address] [place] [address] Dr. Kamaljit Browning CO2 [Moles/Vol] 26.4 mmol/L Normal 21.0-32.0 [facility] Comment on above: Performed By: #### C MP, BNP #### [facility] [address] [place] [address] Dr. Kamaljit Browning Creatinine [Mass/Vol] 1.11 mg/dL Normal 0.70-1.30 [facility] Comment on above: Performed By: #### C MP, BNP #### [facility] [address] [place] [address] Dr. Kamaljit Browning EGFR-AF SAO TOMEAN >60 Normal >=60 [facility] Comment on above: Performed By: #### C MP, BNP #### [facility] [address] [place] [address] Dr. Kamaljit Browning EGFR-NON AF SAO TOMEAN >60 Normal >=60 [facility] Comment on above: Performed By: #### C MP, BNP #### [facility] [address] [place] [address] Dr. Kamaljit Browning Globulin (S) [Mass/Vol] 3.2 g/dL Normal [facility] Comment on above: Performed By: #### C MP, BNP #### [facility] [address] [place] [address] Dr. Kamaljit Browning Glucose [Mass/Vol] 112 mg/dL Critically high 74-106 [facility] Comment on above: Performed By: #### C MP, BNP #### [facility] [address] [place] [address] Dr. Kamaljit Browning Potassium [Moles/Vol] 4.0 mmol/L Normal 3.5-5.1 [facility] Comment on above: Performed By: #### C MP, BNP #### [facility] [address] [place] [address] Dr. Kamaljit Browning Protein [Mass/Vol] 7.1 g/dL Normal 6.4-8.2 [facility] Comment on above: Performed By: #### C MP, BNP #### [facility] [address] [place] [address] Dr. Kamaljit Browning Sodium [Moles/Vol] 142 mmol/L Normal 136-145 [facility] Comment on above: Performed By: #### C MP, BNP #### [facility] [address] [place] [address] Dr. Kamaljit Browning Urea nitrogen [Mass/Vol] 15.0 mg/dL Normal 7.0-18.0 [facility] Comment on above: Performed By: #### C MP, BNP #### [facility] [address] [place] [address] Dr. Kamaljit Browning Urea nitrogen/Creatinine [Mass ratio] 13.5 mg/mg Normal [facility] Comment on above: Performed By: #### C MP, BNP #### [facility] [address] [place] [address] Dr. Kamaljit Browning PROTIMEon 12-26-2021 INR Coag (PPP) [Relative time] 3.98 {INR} Normal [facility] Comment on above: Performed By: #### A 1C #### [facility] [address] [place] [address] Dr. Kamaljit Browning INR GUIDELINES SEE BELOW Normal [facility] Comment on above: Result Comment: NILDA RED INR: 2.0 - 3.0 CONDITIONS NOT LISTED BELOW 2.5 - 3.5 FOR PROSTHETIC HEART VALVE REPLACEMENT 2.5 - 3.5 RECURRENT THROMBOSIS Performed By: #### A 1C #### [facility] [address] [place] [address] Dr. Kamaljit Browning PT Coag (PPP) [Time] 39.3 s Critically high 9.0-11.6 [facility] Comment on above: Performed By: #### A 1C #### [facility] [address] [place] [address] Dr. Kamaljit Browning T3, TOTAL (TRIIODOTHYRONINE) on 12-26-2021 T3, TOTAL 67 ng/dL Critically low 71-180 [facility] Comment on above: Performed By: #### C BC #### [facility] [address], [place] [address] Dr. Kamaljit Browning VASCULAR ORG CMPLon 12-26 US VASCULAR ORG [...] LISBET BRANCH Date: 2021-12-26 09:34 Normal [facility] BNPon 12-25-2021 Natriuretic peptide B (Bld) [Mass/Vol] 106.0 pg/mL Normal <=900.0 [facility] Comment on above: Performed By: #### C MP, BNP #### [facility] [address] [address] [address] Kamaljit Browning CARDIAC GABRIELLA 3-6on 2 CK [Catalytic activity/Vol] 92 U/L Normal 39-308 [facility] Comment on above: Performed By: #### C MP, BNP #### [facility] [address], [place] [address] Dr. Kamaljit Browning CK.MB [Mass/Vol] 1.08 ng/mL Normal <=3.60 [facility] Comment on above: Performed By: #### C MP, BNP #### [facility] [address] [place] [address] Dr. Kamaljit Browning HSTROP 21.7 pg/mL Normal 4.0-76.1 [facility] Comment on above: Result Comment: CUT- OFF POINTS HAVE BEEN ESTABLISHED BASED ON THE FOURTH UNIVERSAL DEFINITIONS OF MYOCARDIAL INFARCTION. THE UPPER REFERENCE LIMIT (URL) OF TROPONIN, DEFINED THE 99TH PERCENTILE OF cTnI DISTRIBUTION IN A REFERENCE POPULATION, HAS BEEN CONFIRMED THE DECISION THRESHOLD FOR TX DIAGNOSIS. Performed By: #### C MP, BNP #### [facility] [address] [place] [address] Dr. Kamaljit Browning CK [Catalytic activity/Vol] 98 U/L Normal 39-308 [facility] Comment on above: Performed By: #### C MP, BNP #### [facility] [address] [place] [address] Dr. Kamaljit Browning CK.MB [Mass/Vol] 1.25 ng/mL Normal <=3.60 [facility] Comment on above: Performed By: #### C MP, BNP #### [facility] [address] [place] [address] Dr. Kamaljit Browning HSTROP 23.6 pg/mL Normal 4.0-76.1 [facility] Comment on above: Result Comment: CUT- OFF POINTS HAVE BEEN ESTABLISHED BASED ON THE FOURTH UNIVERSAL DEFINITIONS OF MYOCARDIAL INFARCTION. THE UPPER REFERENCE LIMIT (URL) OF TROPONIN, DEFINED THE 99TH PERCENTILE OF cTnI DISTRIBUTION IN A REFERENCE POPULATION, HAS BEEN CONFIRMED THE DECISION THRESHOLD FOR TX DIAGNOSIS. Performed By: #### C MP, BNP #### [facility] [address] [place] [address] Dr. Kamaljit Browning CARDIAC GABRIELLA ADMITon 022 CK [Catalytic activity/Vol] 105 U/L Normal 39-308 [facility] Comment on above: Performed By: #### C MP, BNP #### [facility] [address] [place] [address] Dr. Kamaljit Browning CK.MB [Mass/Vol] 0.99 ng/mL Normal <=3.60 [facility] Comment on above: Performed By: #### C MP, BNP #### [facility] [address] [place] [address] Dr. Kamaljit Browning HSTROP 24.9 pg/mL Normal 4.0-76.1 [facility] Comment on above: Result Comment: CUT- OFF POINTS HAVE BEEN ESTABLISHED BASED ON THE FOURTH UNIVERSAL DEFINITIONS OF MYOCARDIAL INFARCTION. THE UPPER REFERENCE LIMIT (URL) OF TROPONIN, DEFINED THE 99TH PERCENTILE OF cTnI DISTRIBUTION IN A REFERENCE POPULATION, HAS BEEN CONFIRMED THE DECISION THRESHOLD FOR TX DIAGNOSIS. Performed By: #### C MP, BNP #### [facility] [address] [place] [address] Dr. Kamaljit Browning SANDI 51 ng/mL Normal 16-96 [facility] Comment on above: Performed By: #### C MP, BNP #### [facility] [address] [place] [address] Dr. Kamaljit Browinng CBC AUTO DIFFon 12-25-2021 BASO # 0.1 103/ul Normal 0.0-0.1 [facility] Comment on above: Performed By: #### C BC #### [facility] [address] [place] [address] Dr. Kamaljit Browning Basophils/100 WBC (Bld) 0.8 % Normal 0.2-2.0 [facility] Comment on above: Performed By: #### C BC #### [facility] [address] [place] [address] Dr. Kamaljit Browning EO # 0.1 103/ul Normal 0.0-0.7 [facility] Comment on above: Performed By: #### C BC #### [facility] [address] [place] [address] Dr. Kamaljit Browning Eosinophils/100 WBC (Bld) 1.0 % Normal 0.9-7.0 [facility] Comment on above: Performed By: #### C BC #### [facility] [address] [place] [address] Dr. Kamaljit Browning Erythrocyte distribution width (RBC) [Ratio] 12.1 % Normal 11.0-15.0 [facility] Comment on above: Performed By: #### C BC #### [facility] [address] [place] [address] Dr. Kamaljit Browning Hematocrit (Bld) [Volume fraction] 42.2 % Normal 42.0-54.0 [facility] Comment on above: Performed By: #### C BC #### [facility] [address] [place] [address] Dr. Kamaljit Browning Hemoglobin (Bld) [Mass/Vol] 14.2 g/dL Normal 14.0-18.0 [facility] Comment on above: Performed By: #### C BC #### [facility] [address] [place] [address] Dr. Kamaljit Browning IG # 0.02 10e3/ul Normal 0.00-0.03 [facility] Comment on above: Performed By: #### C BC #### [facility] [address] [place] [address] Dr. Kamaljit Browning IG % 0.3 % Normal 0.0-0.5 [facility] Comment on above: Performed By: #### C BC #### [facility] [address] [place] [address] Dr. Kamaljit Browning LYMPH # 0.9 103/ul Critically low 1.2-3.8 [facility] Comment on above: Performed By: #### C BC #### [facility] [address] [place] [address] Dr. Kamaljit Browning Lymphocytes/100 WBC (Bld) 14.7 % Critically low 20.5-60.0 [facility] Comment on above: Performed By: #### C BC #### [facility] [address] [place] [address] Dr. Kamaljit Browning MANUAL DIFF REQ NO Normal [facility] Comment on above: Performed By: #### C BC #### [facility] [address] [place] [address] Dr. Kamaljit Browning MCH (RBC) [Entitic mass] 30.4 pg Normal 25.9-34.0 [facility] Comment on above: Performed By: #### C BC #### [facility] [address] [address] [address] Kamaljit Browning MCHC (RBC) [Mass/Vol] 33.6 g/dL Normal 29.9-35.2 [facility] Comment on above: Performed By: #### C BC #### [facility] [address] [address] [address] Kamaljit Browning MCV (RBC) [Entitic vol] 90.4 fL Normal 80.0-94.0 [facility] Comment on above: Performed By: #### C BC #### [facility] [address] [address] [address] Kamaljit Browning MONO # 0.4 103/ul Normal 0.3-0.8 [facility] Comment on above: Performed By: #### C BC #### [facility] [address] [place] [address] Dr. Kamaljit Browning Monocytes/100 WBC (Bld) 6.5 % Normal 1.7-12.0 [facility] Comment on above: Performed By: #### C BC #### [facility] [address] [address] [address] Kamaljit Browning NEUT # 4.6 103/ul Normal 1.4-6.5 [facility] Comment on above: Performed By: #### C BC #### [facility] [address] [place] [address] Dr. Kamaljit Browning Neutrophils/100 WBC (Bld) 76.7 % Critically high 43.0-75.0 [facility] Comment on above: Performed By: #### C BC #### [facility] [address] [address] [address] Kamaljit Browning Platelet mean volume (Bld) [Entitic vol] 12.2 fL Normal 9.5-13.5 [facility] Comment on above: Performed By: #### C BC #### [facility] [address] [place] [address] Dr. Kamaljit Browning PLT 120 103/ul Critically low 150-450 [facility] Comment on above: Performed By: #### C BC #### [facility] [address] [address] [address] Kamaljit Browning RBC 4.67 106/ul Critically low 4.70-6.10 [facility] Comment on above: Performed By: #### C BC #### [facility] [address] [address] [address] Kamaljit Browning WBC 6.0 103/ul Normal 4.0-11.0 [facility] Comment on above: Performed By: #### C BC #### [facility] [address] [address] [address] Kamaljit Browning CULTURE URINEon 12-25-2021 CULTURE URINE Culture Observations : NO GROWTH. Normal [facility] Comment on above: Performed By: #### C MP, BNP #### [facility] [address] [place] [address] Dr. Kamaljit Browning Covid-19 PCR (CVDTB)on 11-28 SARS-CoV-2 (COVID-19) RNA SOURAV+probe Ql (Unsp spec) Not detected Normal NOT DETECTED [facility] Comment on above: Result Comment: When [...] for this test is supported by the [place] of [employer] and Human Service's declaration that [...] used). Performed By: #### C BC #### [facility] [address] [place] [address] Dr. Kamaljit Browning ECHOCARDIO M/2D COMPLETEon 0 12-25-2021 ECHOCARDIO M/2D COMPLETE Patient: MARTIN WEST Exam Date: 12/25/2021 : 1950 Gender:M Ordering : DR PETRA WOOTEN . Admission #: [id number] Family : DR ALAYNA LANGLEY M.D. Order #: [id number] CLICK HERE TO VIEW EXAM ECHOCARDIOGRAM REPORT [...] Area(A4C): 22.50 cm2 Left Atrium Systolic Volume(A2C): 70543 mm3 Left Atrium Systolic Volume(A4C): 58224 mm3 Mitral Valve MV E to A Ratio: 1 Deceleration Miller: 5860 mm/s2 Mitral Valve A-Wave Peak Velocity: [...] Reddy M.D. on 12/25/2021 at 16:48 Normal [facility] MAGNESIUMon 12-25-2021 Magnesium [Mass/Vol] 2.2 mg/dL Normal 1.8-2.4 [facility] Comment on above: Performed By: #### C MP, BNP #### [facility] [address] [place] [address] Dr. Kamaljit Browning PHOSPHORUSon 12-25-2021 Phosphate [Mass/Vol] 3.2 mg/dL Normal 2.6-4.7 [facility] Comment on above: Performed By: #### C MP, BNP #### [facility] [address] [place] [address] Dr. Kamaljit Browning PROF 14(COMP METB)on 022 Albumin [Mass/Vol] 4.4 g/dL Normal 3.4-5.0 [facility] Comment on above: Performed By: #### C MP, BNP #### [facility] [address] [place] [address] Dr. Kamaljit Browning Albumin/Globulin [Mass ratio] 1.2 {ratio} Normal [facility] Comment on above: Performed By: #### C MP, BNP #### [facility] [address] [place] [address] Dr. Kamaljit Browning ALP [Catalytic activity/Vol] 95 U/L Normal 46-116 [facility] Comment on above: Performed By: #### C MP, BNP #### [facility] [address] [place] [address] Dr. Kamaljit Browning ALT [Catalytic activity/Vol] 30 U/L Normal 16-63 [facility] Comment on above: Performed By: #### C MP, BNP #### [facility] [address] [place] [address] Dr. Kamaljit Browning Anion gap [Moles/Vol] 12.0 mmol/L Normal [facility] Comment on above: Performed By: #### C MP, BNP #### [facility] [address] [place] [address] Dr. Kamaljit Browning AST [Catalytic activity/Vol] 27 U/L Normal 15-37 [facility] Comment on above: Performed By: #### C MP, BNP #### [facility] [address] [place] [address] Dr. Kamaljit Browning Bilirubin [Mass/Vol] 0.8 mg/dL Normal 0.2-1.0 [facility] Comment on above: Performed By: #### C MP, BNP #### [facility] [address] [place] [address] Dr. Kamaljit Browning Calcium [Mass/Vol] 9.1 mg/dL Normal 8.5-10.1 [facility] Comment on above: Performed By: #### C MP, BNP #### [facility] [address] [place] [address] Dr. Kamaljit Browning Chloride [Moles/Vol] 107 mmol/L Normal 98-107 [facility] Comment on above: Performed By: #### C MP, BNP #### [facility] [address] [place] [address] Dr. Kamaljit Browning CO2 [Moles/Vol] 27.6 mmol/L Normal 21.0-32.0 [facility] Comment on above: Performed By: #### C MP, BNP #### [facility] [address] [place] [address] Dr. Kamaljit Browning Creatinine [Mass/Vol] 1.01 mg/dL Normal 0.70-1.30 [facility] Comment on above: Performed By: #### C MP, BNP #### [facility] [address] [place] [address] Dr. Kamaljit Browning EGFR-AF SAO TOMEAN >60 Normal >=60 [facility] Comment on above: Performed By: #### C MP, BNP #### [facility] [address] [place] [address] Dr. Kamaljit Browning EGFR-NON AF SAO TOMEAN >60 Normal >=60 [facility] Comment on above: Performed By: #### C MP, BNP #### [facility] [address] [place] [address] Dr. Kamaljit Browning Globulin (S) [Mass/Vol] 3.6 g/dL Normal [facility] Comment on above: Performed By: #### C MP, BNP #### [facility] [address] [place] [address] Dr. Kamaljit Browning Glucose [Mass/Vol] 123 mg/dL Critically high 74-106 [facility] Comment on above: Performed By: #### C MP, BNP #### [facility] [address] [place] [address] Dr. Kamaljit Browning Potassium [Moles/Vol] 4.6 mmol/L Normal 3.5-5.1 [facility] Comment on above: Performed By: #### C MP, BNP #### [facility] [address] [place] [address] Dr. Kamaljit Browning Protein [Mass/Vol] 8.0 g/dL Normal 6.4-8.2 [facility] Comment on above: Performed By: #### C MP, BNP #### [facility] [address] [place] [address] Dr. Kamaljit Browning Sodium [Moles/Vol] 142 mmol/L Normal 136-145 [facility] Comment on above: Performed By: #### C MP, BNP #### [facility] [address] [place] [address] Dr. Kamaljit Browning Urea nitrogen [Mass/Vol] 12.0 mg/dL Normal 7.0-18.0 [facility] Comment on above: Performed By: #### C MP, BNP #### [facility] [address] [place] [address] Dr. Kamaljit Browning Urea nitrogen/Creatinine [Mass ratio] 11.9 mg/mg Normal [facility] Comment on above: Performed By: #### C MP, BNP #### [facility] [address] [place] [address] Dr. Kamaljit Browning PROTIMEon 12-25-2021 INR Coag (PPP) [Relative time] 3.75 {INR} Normal [facility] Comment on above: Performed By: #### P T, PTT #### [facility] [address] [place] [address] Dr. Kamaljit Browning INR GUIDELINES SEE BELOW Normal [facility] Comment on above: Result Comment: NILDA RED INR: 2.0 - 3.0 CONDITIONS NOT LISTED BELOW 2.5 - 3.5 FOR PROSTHETIC HEART VALVE REPLACEMENT 2.5 - 3.5 RECURRENT THROMBOSIS Performed By: #### P T, PTT #### [facility] [address] [place] [address] Dr. Kamaljit Browning PT Coag (PPP) [Time] 37.1 s Critically high 9.0-11.6 [facility] Comment on above: Performed By: #### P T, PTT #### [facility] [address] [place] [address] Dr. Kamaljit Browning PTTon 12-25-2021 aPTT Coag (Bld) [Time] 55.4 s Critically high 22.3-36.2 [facility] Comment on above: Performed By: #### P T, PTT #### [facility] [address] [place] [address] Dr. Kamaljit Browning T4on 12-25-2021 T4 [Mass/Vol] 8.90 ug/dL Normal 4.50-12.10 [facility] Comment on above: Performed By: #### C MP, BNP #### [facility] [address] [place] [address] Dr. Kamaljit Browning TSHon 12-25-2021 TSH 0.778 uIU/mL Normal 0.358-3.740 [facility] Comment on above: Performed By: #### C MP, BNP #### [facility] [address] [place] [address] Dr. Kamaljit Browning UA RANDOM W/MICROSCOPICon BACTERIA NONE SEEN Normal NONE SEEN [facility] Comment on above: Performed By: #### A 1C #### [facility] [address] [place] [address] Dr. Kamaljit Browning Bilirubin Ql (U) Negative Normal NEGATIVE [facility] Comment on above: Performed By: #### A 1C #### [facility] [address] [place] [address] Dr. Kamaljit Browning CAST NONE SEEN Normal NONE SEEN [facility] Comment on above: Performed By: #### A 1C #### [facility] [address] [place] [address] Dr. Kamaljit Browning Clarity (U) CLEAR Normal CLEAR [facility] Comment on above: Performed By: #### A 1C #### [facility] [address] [place] [address] Dr. Kamaljit Browning Color (U) LT. YELLOW Normal YELLOW [facility] Comment on above: Performed By: #### A 1C #### [facility] [address] [place] [address] Dr. Kamaljit Browning Crystals LM Nom (Urine sed) NONE SEEN Normal NONE SEEN [facility] Comment on above: Performed By: #### A 1C #### [facility] [address] [place] [address] Dr. Kamaljit Browning Epithelial cells LM Ql (Urine sed) NONE SEEN Normal NONE SEEN /RARE [facility] Comment on above: Performed By: #### A 1C #### [facility] [address] [place] [address] Dr. Kamaljit Browning Glucose Ql (U) Negative Normal NEGATIVE [facility] Comment on above: Performed By: #### A 1C #### [facility] [address] [place] [address] Dr. Kamaljit Browning Hemoglobin Ql (U) Negative Normal NEGATIVE [facility] Comment on above: Performed By: #### A 1C #### [facility] [address] [place] [address] Dr. Kamaljit Browning Ketones Ql (U) Negative Normal NEGATIVE [facility] Comment on above: Performed By: #### A 1C #### [facility] [address] [place] [address] Dr. Kamaljit Browning LEUKOCYTES Negative Normal NEGATIVE [facility] Comment on above: Performed By: #### A 1C #### [facility] [address] [place] [address] Dr. Kamaljit Browning MUCOUS NONE SEEN Normal NONE SEEN [facility] Comment on above: Performed By: #### A 1C #### [facility] [address] [place] [address] Dr. Kamaljit Browning Nitrite Ql (U) Negative Normal NEGATIVE [facility] Comment on above: Performed By: #### A 1C #### [facility] [address] [place] [address] Dr. Kamaljit Browning pH (U) 6.0 [pH] Normal 5-9 [facility] Comment on above: Performed By: #### A 1C #### [facility] [address] [place] [address] Dr. Kamaljit Browning RBC NONE SEEN Abnormal 0-2 [facility] Comment on above: Performed By: #### A 1C #### [facility] [address] [place] [address] Dr. Kamaljit Browning SPEC GRAVITY 1.010 Normal 1.005-<=1.025 [facility] Comment on above: Performed By: #### A 1C #### [facility] [address] [place] [address] Dr. Kamaljit Browning UA PROTEIN Negative Normal NEGATIVE/ TRACE [facility] Comment on above: Performed By: #### A 1C #### [facility] [address] [place] [address] Dr. Kamaljit Browning Urobilinogen Qn (U) 0.2 {Mari'U}/dL Normal 0.2 - 1. 0 [facility] Comment on above: Performed By: #### A 1C #### [facility] [address] [place] [address] Dr. Kamaljit Browning WBC NONE SEEN Normal NONE SEEN [facility] Comment on above: Performed By: #### A 1C #### [facility] [address] [place] [address] Dr. Kamaljit Browning CBC AUTO DIFFon 12-18-2021 BASO # 0.0 103/ul Normal 0.0-0.1 [facility] Comment on above: Performed By: #### C BC #### [facility] [address] [place] [address] Dr. Kamaljit Browning Basophils/100 WBC (Bld) 0.6 % Normal 0.2-2.0 [facility] Comment on above: Performed By: #### C BC #### [facility] [address] [place] [address] Dr. Kamaljit Browning EO # 0.1 103/ul Normal 0.0-0.7 [facility] Comment on above: Performed By: #### C BC #### [facility] [address] [place] [address] Dr. Kamaljit Browning Eosinophils/100 WBC (Bld) 1.1 % Normal 0.9-7.0 [facility] Comment on above: Performed By: #### C BC #### [facility] [address] [place] [address] Dr. Kamaljit Browning Erythrocyte distribution width (RBC) [Ratio] 12.5 % Normal 11.0-15.0 [facility] Comment on above: Performed By: #### C BC #### [facility] [address] [place] [address] Dr. Kamaljit Browning Hematocrit (Bld) [Volume fraction] 40.5 % Critically low 42.0-54.0 [facility] Comment on above: Performed By: #### C BC #### [facility] [address] [place] [address] Dr. Kamaljit Browning Hemoglobin (Bld) [Mass/Vol] 13.5 g/dL Critically low 14.0-18.0 [facility] Comment on above: Performed By: #### C BC #### [facility] [address] [place] [address] Dr. Kamaljit Browning IG # 0.02 10e3/ul Normal 0.00-0.03 [facility] Comment on above: Performed By: #### C BC #### [facility] [address] [place] [address] Dr. Kamaljit Browning IG % 0.3 % Normal 0.0-0.5 [facility] Comment on above: Performed By: #### C BC #### [facility] [address] [place] [address] Dr. Kamaljit Browning LYMPH # 1.0 103/ul Critically low 1.2-3.8 [facility] Comment on above: Performed By: #### C BC #### [facility] [address] [place] [address] Dr. Kamaljit Browning Lymphocytes/100 WBC (Bld) 14.8 % Critically low 20.5-60.0 [facility] Comment on above: Performed By: #### C BC #### [facility] [address] [place] [address] Dr. Kamaljit Browning MANUAL DIFF REQ NO Normal [facility] Comment on above: Performed By: #### C BC #### [facility] [address] [place] [address] Dr. Kamaljit Browning MCH (RBC) [Entitic mass] 30.3 pg Normal 25.9-34.0 [facility] Comment on above: Performed By: #### C BC #### [facility] [address] [place] [address] Dr. Kamaljit Browning MCHC (RBC) [Mass/Vol] 33.3 g/dL Normal 29.9-35.2 [facility] Comment on above: Performed By: #### C BC #### [facility] [address] [place] [address] Dr. Kamaljit Browning MCV (RBC) [Entitic vol] 91.0 fL Normal 80.0-94.0 [facility] Comment on above: Performed By: #### C BC #### [facility] [address] [place] [address] Dr. Kamaljit Browning MONO # 0.6 103/ul Normal 0.3-0.8 [facility] Comment on above: Performed By: #### C BC #### [facility] [address] [place] [address] Dr. Kamaljit Browning Monocytes/100 WBC (Bld) 9.0 % Normal 1.7-12.0 [facility] Comment on above: Performed By: #### C BC #### [facility] [address] [place] [address] Dr. Kamaljit Browning NEUT # 5.2 103/ul Normal 1.4-6.5 [facility] Comment on above: Performed By: #### C BC #### [facility] [address] [place] [address] Dr. Kamaljit Browning Neutrophils/100 WBC (Bld) 74.2 % Normal 43.0-75.0 [facility] Comment on above: Performed By: #### C BC #### [facility] [address] [place] [address] Dr. Kamaljit Browning Platelet mean volume (Bld) [Entitic vol] 12.7 fL Normal 9.5-13.5 [facility] Comment on above: Performed By: #### C BC #### [facility] [address] [address] [address] Kamaljti Browning PLT 114 103/ul Critically low 150-450 [facility] Comment on above: Performed By: #### C BC #### [facility] [address] [address] [address] Kamaljit Browning RBC 4.45 106/ul Critically low 4.70-6.10 [facility] Comment on above: Performed By: #### C BC #### [facility] [address] [place] [address] Dr. Kamaljit Browning WBC 7.0 103/ul Normal 4.0-11.0 [facility] Comment on above: Performed By: #### C BC #### [facility] [address] [place] [address] Dr. Kamaljit Browning MAGNESIUMon 12-18-2021 Magnesium [Mass/Vol] 2.1 mg/dL Normal 1.8-2.4 [facility] Comment on above: Performed By: #### C BC #### [facility] [address] [place] [address] Dr. Kamaljit Browning PROF CHEM 8 (BAS METB)on Anion gap [Moles/Vol] 13.2 mmol/L Normal [facility] Comment on above: Performed By: #### C BC #### [facility] [address] [place] [address] Dr. Kamaljit Browning Calcium [Mass/Vol] 8.7 mg/dL Normal 8.5-10.1 [facility] Comment on above: Performed By: #### C BC #### [facility] [address] [place] [address] Dr. Kamaljit Browning Chloride [Moles/Vol] 108 mmol/L Critically high 98-107 [facility] Comment on above: Performed By: #### C BC #### [facility] [address] [place] [address] Dr. Kamaljit Browning CO2 [Moles/Vol] 25.7 mmol/L Normal 21.0-32.0 [facility] Comment on above: Performed By: #### C BC #### [facility] [address] [place] [address] Dr. Kamaljit Browning Creatinine [Mass/Vol] 1.10 mg/dL Normal 0.70-1.30 [facility] Comment on above: Performed By: #### C BC #### [facility] [address] [place] [address] Dr. Kamaljit Bronwing EGFR-AF SAO TOMEAN >60 Normal >=60 [facility] Comment on above: Performed By: #### C BC #### [facility] [address] [place] [address] Dr. Kamaljit Browning EGFR-NON AF SAO TOMEAN >60 Normal >=60 [facility] Comment on above: Performed By: #### C BC #### [facility] [address] [place] [address] Dr. Kamaljit Browning Glucose [Mass/Vol] 118 mg/dL Critically high 74-106 [facility] Comment on above: Performed By: #### C BC #### [facility] [address] [place] [address] Dr. Kamaljit Browning Potassium [Moles/Vol] 3.9 mmol/L Normal 3.5-5.1 [facility] Comment on above: Performed By: #### C BC #### [facility] [address] [place] [address] Dr. Kamaljit Browning Sodium [Moles/Vol] 143 mmol/L Normal 136-145 [facility] Comment on above: Performed By: #### C BC #### [facility] [address] [place] [address] Dr. Kamaljit Browning Urea nitrogen [Mass/Vol] 12.0 mg/dL Normal 7.0-18.0 [facility] Comment on above: Performed By: #### C BC #### [facility] [address] [place] [address] Dr. Kamaljit Browning Urea nitrogen/Creatinine [Mass ratio] 10.9 mg/mg Normal [facility] Comment on above: Performed By: #### C BC #### [facility] [address] [place] [address] Dr. Kamaljit Browning PROTIMEon 12-18-2021 INR Coag (PPP) [Relative time] 2.47 {INR} Normal [facility] Comment on above: Performed By: #### C MP, BNP #### [facility] [address] [place] [address] Dr. Kamaljit Browning INR GUIDELINES SEE BELOW Normal [facility] Comment on above: Result Comment: NILDA RED INR: 2.0 - 3.0 CONDITIONS NOT LISTED BELOW 2.5 - 3.5 FOR PROSTHETIC HEART VALVE REPLACEMENT 2.5 - 3.5 RECURRENT THROMBOSIS Performed By: #### C MP, BNP #### [facility] [address] [place] [address] Dr. Kamaljit Browning PT Coag (PPP) [Time] 25.1 s Critically high 9.0-11.6 [facility] Comment on above: Performed By: #### C MP, BNP #### [facility] [address] [place] [address] Dr. Kamaljit Browning TSHon 12-18-2021 TSH 1.850 uIU/mL Normal 0.358-3.740 [facility] Comment on above: Performed By: #### C BC #### [facility] [address] [place] [address] Dr. Kamaljit Browning BNPon 12-17-2021 Natriuretic peptide B (Bld) [Mass/Vol] 50.0 pg/mL Normal <=900.0 [facility] Comment on above: Performed By: #### A 1C #### [facility] [address] [place] [address] Dr. Kamaljit Browning CBC AUTO DIFFon 12-17-2021 BASO # 0.1 103/ul Normal 0.0-0.1 [facility] Comment on above: Performed By: #### C BC #### [facility] [address] [place] [address] Dr. Kamaljit Browning Basophils/100 WBC (Bld) 1.0 % Normal 0.2-2.0 [facility] Comment on above: Performed By: #### C BC #### [facility] [address] [place] [address] Dr. Kamaljit Browning EO # 0.1 103/ul Normal 0.0-0.7 [facility] Comment on above: Performed By: #### C BC #### [facility] [address] [place] [address] Dr. Kamaljit Browning Eosinophils/100 WBC (Bld) 1.2 % Normal 0.9-7.0 [facility] Comment on above: Performed By: #### C BC #### [facility] [address] [place] [address] Dr. Kamaljit Browning Erythrocyte distribution width (RBC) [Ratio] 12.4 % Normal 11.0-15.0 [facility] Comment on above: Performed By: #### C BC #### [facility] [address] [place] [address] Dr. Kamaljit Browning Hematocrit (Bld) [Volume fraction] 43.8 % Normal 42.0-54.0 [facility] Comment on above: Performed By: #### C BC #### [facility] [address] [place] [address] Dr. Kamaljit Browning Hemoglobin (Bld) [Mass/Vol] 14.4 g/dL Normal 14.0-18.0 [facility] Comment on above: Performed By: #### C BC #### [facility] [address] [place] [address] Dr. Kamaljit Browning IG # 0.02 10e3/ul Normal 0.00-0.03 [facility] Comment on above: Performed By: #### C BC #### [facility] [address] [place] [address] Dr. Kamaljit Browning IG % 0.3 % Normal 0.0-0.5 [facility] Comment on above: Performed By: #### C BC #### [facility] [address] [place] [address] Dr. Kamaljit Browning LYMPH # 1.1 103/ul Critically low 1.2-3.8 [facility] Comment on above: Performed By: #### C BC #### [facility] [address] [place] [address] Dr. Kamaljit Browning Lymphocytes/100 WBC (Bld) 18.5 % Critically low 20.5-60.0 [facility] Comment on above: Performed By: #### C BC #### [facility] [address] [place] [address] Dr. Kamaljit Browning MANUAL DIFF REQ NO Normal [facility] Comment on above: Performed By: #### C BC #### [facility] [address] [place] [address] Dr. Kamaljit Browning MCH (RBC) [Entitic mass] 30.2 pg Normal 25.9-34.0 [facility] Comment on above: Performed By: #### C BC #### [facility] [address] [place] [address] Dr. Kamaljit Browning MCHC (RBC) [Mass/Vol] 32.9 g/dL Normal 29.9-35.2 [facility] Comment on above: Performed By: #### C BC #### [facility] [address] [place] [address] Dr. Kamaljit Browning MCV (RBC) [Entitic vol] 91.8 fL Normal 80.0-94.0 [facility] Comment on above: Performed By: #### C BC #### [facility] [address] [place] [address] Dr. Kamaljit Browning MONO # 0.4 103/ul Normal 0.3-0.8 [facility] Comment on above: Performed By: #### C BC #### [facility] [address] [place] [address] Dr. Kamaljit Browning Monocytes/100 WBC (Bld) 7.4 % Normal 1.7-12.0 [facility] Comment on above: Performed By: #### C BC #### [facility] [address] [place] [address] Dr. Kamaljit Browning NEUT # 4.1 103/ul Normal 1.4-6.5 [facility] Comment on above: Performed By: #### C BC #### [facility] [address] [place] [address] Dr. Kamaljit Browning Neutrophils/100 WBC (Bld) 71.6 % Normal 43.0-75.0 [facility] Comment on above: Performed By: #### C BC #### [facility] [address] [place] [address] Dr. Kamaljit Browning Platelet mean volume (Bld) [Entitic vol] 12.4 fL Normal 9.5-13.5 [facility] Comment on above: Performed By: #### C BC #### [facility] [address] [place] [address] Dr. Kamaljit Browning PLT 111 103/ul Critically low 150-450 [facility] Comment on above: Performed By: #### C BC #### [facility] [address] [place] [address] Dr. Kamaljit Browning RBC 4.77 106/ul Normal 4.70-6.10 [facility] Comment on above: Performed By: #### C BC #### [facility] [address] [place] [address] Dr. Kamaljit Browning WBC 5.8 103/ul Normal 4.0-11.0 [facility] Comment on above: Performed By: #### C BC #### [facility] [address] [place] [address] Dr. Kamaljit Browning Covid-19 PCR ([facility])on 11-28 SARS-CoV-2 (COVID-19) RNA SOURAV+probe Ql (Unsp spec) Not detected Normal NOT DETECTED [facility] Comment on above: Result Comment: When [...] for this test is supported by the [employer] Education [employer] Teacher of Health and Human Service's declaration that [...] Performed By: #### C MP, BNP #### [facility] [address] [place] [address] Dr. Kamaljit Browning PROF 14(COMP METB)on 022 Albumin [Mass/Vol] 4.3 g/dL Normal 3.4-5.0 [facility] Comment on above: Performed By: #### A 1C #### [facility] [address] [place] [address] Dr. Kamaljit Browning Albumin/Globulin [Mass ratio] 1.2 {ratio} Normal [facility] Comment on above: Performed By: #### A 1C #### [facility] [address] [place] [address] Dr. Kamaljit Browning ALP [Catalytic activity/Vol] 115 U/L Normal 46-116 [facility] Comment on above: Performed By: #### A 1C #### [facility] [address] [place] [address] Dr. Kamaljit Browning ALT [Catalytic activity/Vol] 35 U/L Normal 16-63 [facility] Comment on above: Performed By: #### A 1C #### [facility] [address] [place] [address] Dr. Kamaljit Browning Anion gap [Moles/Vol] 15.0 mmol/L Normal [facility] Comment on above: Performed By: #### A 1C #### [facility] [address] [place] [address] Dr. Kamaljit Browning AST [Catalytic activity/Vol] 26 U/L Normal 15-37 [facility] Comment on above: Performed By: #### A 1C #### [facility] [address] [place] [address] Dr. Kamaljit Browning Bilirubin [Mass/Vol] 0.5 mg/dL Normal 0.2-1.0 [facility] Comment on above: Performed By: #### A 1C #### [facility] [address] [place] [address] Dr. Kamaljit Browning Calcium [Mass/Vol] 8.6 mg/dL Normal 8.5-10.1 [facility] Comment on above: Performed By: #### A 1C #### [facility] [address] [place] [address] Dr. Kamaljit Browning Chloride [Moles/Vol] 106 mmol/L Normal 98-107 [facility] Comment on above: Performed By: #### A 1C #### [facility] [address] [address] [address] Kamaljit Browning CO2 [Moles/Vol] 24.0 mmol/L Normal 21.0-32.0 [facility] Comment on above: Performed By: #### A 1C #### [facility] [address] [place] [address] Dr. Kamaljit Browning Creatinine [Mass/Vol] 1.02 mg/dL Normal 0.70-1.30 [facility] Comment on above: Performed By: #### A 1C #### [facility] [address] [place] [address] Dr. Kamaljit Browning EGFR-AF SAO TOMEAN >60 Normal >=60 [facility] Comment on above: Performed By: #### A 1C #### [facility] [address] [place] [address] Dr. Kamaljit Browning EGFR-NON AF SAO TOMEAN >60 Normal >=60 [facility] Comment on above: Performed By: #### A 1C #### [facility] [address] [place] [address] Dr. Kamaljit Browning Globulin (S) [Mass/Vol] 3.5 g/dL Normal [facility] Comment on above: Performed By: #### A 1C #### [facility] [address] [place] [address] Dr. Kamaljit Browning Glucose [Mass/Vol] 138 mg/dL Critically high 74-106 [facility] Comment on above: Performed By: #### A 1C #### [facility] [address] [place] [address] Dr. Kamaljit Browning Potassium [Moles/Vol] 4.0 mmol/L Normal 3.5-5.1 [facility] Comment on above: Performed By: #### A 1C #### [facility] [address] [address] [address] Kamaljit Browning Protein [Mass/Vol] 7.8 g/dL Normal 6.4-8.2 [facility] Comment on above: Performed By: #### A 1C #### [facility] [address] [address] [address] Kamaljit Browning Sodium [Moles/Vol] 141 mmol/L Normal 136-145 [facility] Comment on above: Performed By: #### A 1C #### [facility] [address] [address] [address] Kamaljit Browning Urea nitrogen [Mass/Vol] 13.0 mg/dL Normal 7.0-18.0 [facility] Comment on above: Performed By: #### A 1C #### [facility] [address] [address] [address] Kamaljit Browning Urea nitrogen/Creatinine [Mass ratio] 12.7 mg/mg Normal [facility] Comment on above: Performed By: #### A 1C #### [facility] [address] [address] [address] Kamaljit Browning TROPONIN, HIGH SENSITIVITYon 12-17-2021 HSTROP 11.1 pg/mL Normal 4.0-76.1 [facility] Comment on above: Result Comment: CUT- OFF POINTS HAVE BEEN ESTABLISHED BASED ON THE FOURTH UNIVERSAL DEFINITIONS OF MYOCARDIAL INFARCTION. THE UPPER REFERENCE LIMIT (URL) OF TROPONIN, DEFINED THE 99TH PERCENTILE OF cTnI DISTRIBUTION IN A REFERENCE POPULATION, HAS BEEN CONFIRMED THE DECISION THRESHOLD FOR TX DIAGNOSIS. Performed By: #### A 1C #### [facility] [address] [address] [address] Kamaljit Browning Vital Signs Date Time Vital Sign Value Performing Clinician Perez ortiz 03-18-2023 14:09-0400 Blood Pressure Location Leo TATE [facility] 03-18-2023 14:09-0400 Diastolic blood pressure 86 mm[Hg] Leo TATE [facility] 03-18-2023 14:090400 Heart rate 70 /min Leo BRYANL [facility] [place] 03-18-2023 14:090400 Respiratory rate 16 /min Leo BRYANL [facility] 03-18-2023 14:09-0400 Systolic blood pressure 130 mm[Hg] Leo ADAMSL [facility] [place] Encounters Encounter Date Encounter Type Care Provider Facility Start: 02-01-2024 End: 02-01-2024 ambulatory [facility] Start: 04-08-2023 End: 04-09-2023 ambulatory Leo Melgar BEBETO Facility:CD:[id number] Start: 03-18-2023 End: 03-19-2023 ambulatory Leo ADAMSL Facility:[facility] Start: 03-18-2023 End: 03-18-2023 Patient encounter procedure Leo Melgar BEBETO [facility] Start: 03-18-2023 End: 03-18-2023 ambulatory [facility] Start: 03-06-2023 ambulatory Leo TATE Facility:[facility] Start: 03-05-2023 ambulatory Leo TATE Facility:[facility] Start: 11-14-2022 End: 11-15-[address] PETRA [...] 03-30-2022 End: 04-28-2022 ambulatory SHAIKH Juan Luis ROBERTSSowmya Facility:[facility] Start: 03-12-2022 End: 03-13-[address] PETRA WOOTEN . Facility:[facility] Start: 02-27-2022 End: 03-29-2022 ambulatory SHAIKH Juan Luis ROBERTSSowmya Facility:[facility] Start: 01-27-2022 End: 02-26-2022 ambulatory SHAIKH Juan Luis HENDERSON Facility:[facility] Start: 12-27-2021 End: 01-24-[address] PETRA WOOTEN . Facility:[facility] Start: 12-25-2021 End: 12-26-[address] PETRA WOOTEN . Facility:[facility] Start: 12-17-2021 End: 12-18-2021 Evaluation and management of inpatient DR PETRA WOOTEN . Facility: Procedures Date Procedure Procedure Detail Performing Clinician Start: 11-14-[address] LIZZIE WOOTEN . Comment on above: Performed By: #### C MP, BNP #### [facility] [address] [place] [address] Dr. 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 Immunizations Immunization Date Immunization Notes Care Provider Fa cility 04-03-2022 SARS-CoV-2 (COVID-19 ) [id number] Leo TATE [facility] 12-02-2021 SARS-CoV-2 mRNA (pviybaezwil-ryes-mvabs se) vaccine Leo TATE [facility] 03-23-2021 SARS-CoV-2 (COVID-19 ) mRNA BNT-162b2 sejal ADAMSL [facility] [place] Comment on above: Result Comment: 2022: [id number] 08-30-2020 SARS-CoV-2 (COVID-19 ) mRNA BNT-162b2 sejal Bailey [employer] [facility] [place] Comment on above: Result Comment: 2022: [id number] 08-09-2020 SARS-CoV-2 (COVID-19 ) mRNA BNT-162b2 [employer] Leo [employer] [facility] [place] Comment on above: Result Comment: 2022: [id number] Payers Date Payer Category Payer Unknown [id number] 1957 Medicare [id number] 1957 Unknown [id number] 1957 Unknown [id number] 1952 Unknown [id number] 2.16.84 0.1.769403.3.579.2.593 1952 Unknown [id number] 2.16.84 0.1.597272.3.579.2.593 1952 Unknown [id number] 2.16.84 0.1.873040.3.579.2.593 1952 Unknown [id number] 2.16.84 0.1.356790.3.579.2.593 1952 Unknown [id number] 2.16.84 0.1.443845.3.579.2.593 1952 Unknown [id number] 2.16.84 0.1.565146.3.579.2.593 1952 Unknown [id number] 2.16.84 0.1.034122.3.579.2.593 1952 Unknown [id number] 2.16.84 0.1.223614.3.579.2.593 1952 Unknown [id number] 2.16.84 0.1.775792.3.579.2.593 1952 Unknown [id number] 2.16.84 0.1.158095.3.579.2.593 1952 Unknown [id number] 2.16.84 0.1.850288.3.579.2.593 1952 Unknown [id number] 2.16.84 0.1.022642.3.579.2.593 1952 Unknown [id number] 2.16.84 0.1.585298.3.579.2.593 1952 Unknown [id number] 2.16.84 0.1.273529.3.579.2.593 1952 Unknown [id number] 2.16.84 0.1.251608.3.579.2.593 1952 Unknown [id number] 2.16.84 0.1.701946.3.579.2.593 1952 Unknown [id number] 2.16.84 0.1.226215.3.579.2.593 1952 Unknown [id number] 2.16.8 40.1.349472.3.579.2.727 1952 Unknown [id number] 2.16.8 40.1.299104.3.579.2.727 1952 Unknown [id number] 2.16.8 40.1.346653.3.579.2.727 Social History Date Type Detail Facility Start: 03-18-2023 Tobacco smoking status Ex-smoker (fi nding) [facility] [place] Tobacco smoking status Never [facility] [place] Sex Assigned At Male [facility] Functional Status Date Assessment Result Facility 03-18-2023 Functional Status N/A [facility] Progress note 02-01-2024 Note Date & Type Note Facility 02-01-2024 Note car [facility] Progress note 02-01-2024 Note Date & Type Note Facility 02-01-2024 Note [facility] Cardiology Clinic Note Chief Complaint: Patient here for 1 year follow up aortic valve disorder, CAD, and hypertension. Had routine labs w/ lipid panel in October 2023. Wore 7 day Holter monitor a few weeks ago for Dr. Wooten for 3 episodes of lightheadedness/loss of balance. He denies chest pain, SOB, palpitations, and syncope. HPI: Martin West is a 74 y.o. male With history of coronary artery disease, mechanical aortic valve, and hypertension Episode as described above Has had less significant or severe symptoms multiple times since No chest pain, no shortness of breath Cardiology ROS: Review of Systems All other systems reviewed and are negative. Past Medical History He has a past medical history of Abnormal ECG, Arrhythmia, Atrial fibrillation (CMS/HCC), Coronary artery disease, GERD (gastroesophageal reflux disease), Heart valve disease, and Hyperlipidemia. Surgical History He has a past surgical history that includes Cardiac catheterization and Aortic valve replacement. Social History He reports that he has quit smoking. His smoking use included cigarettes. He has never used smokeless tobacco. No history on file for alcohol use and drug use. Family History Family History Problem Relation Name Age of Onset No Known Problems Mother No Known Problems Father Allergies Patient has no known allergies. Medications Current Outpatient Medications: aspirin 81 mg EC tablet, Take 1 tablet by mouth in the morning., Disp: , Rfl: carvedilol (Coreg) 25 mg tablet, TAKE 1 TABLET BY MOUTH EVERY 8 HOURS WITH FOOD, Disp: , Rfl: chlorthalidone (Hygroton) 25 mg tablet, Take 1 tablet (25 mg) by mouth in the morning. (Patient taking differently: Take 25 mg by mouth every other day.), Disp: 90 tablet, Rfl: 3 citalopram (CeleXA) 20 mg tablet, Take 1 tablet by mouth in the morning., Disp: , Rfl: cloNIDine (Catapres) 0.1 mg tablet, Take 0.1 mg by mouth in the morning, afternoon, and at bedtime., Disp: , Rfl: doxazosin (Cardura) 8 mg tablet, Take 1 tablet by mouth in the morning., Disp: , Rfl: gemfibrozil (Lopid) 600 mg tablet, Take 1 tablet by mouth in the morning and at bedtime., Disp: , Rfl: lisinopril 40 mg tablet, Take 1 tablet by mouth in the morning., Disp: , Rfl: pantoprazole (ProtoNix) 40 mg EC tablet, Take 1 tablet by mouth in the morning., Disp: , Rfl: simvastatin (Zocor) 40 mg tablet, Take 40 mg by mouth in the morning., Disp: , Rfl: warfarin (Coumadin) 4 mg tablet, Take 4 mg by mouth., Disp: , Rfl: Last Recorded Vitals BP 130/84 (BP Location: Left arm, Patient Position: Sitting) Pulse 56 Ht 1.676 m (5' 6 ) Wt 98.9 kg (218 lb) SpO2 97% BMI 35.19 kg/m??? Physical Examination: GENERAL: alert and oriented [...] Moderately elevated right-sided pressures. Mild pulmonic regurgitation Holter monitor 01/25/2024: Predominant rhythm is sinus with an average rate of 57 bpm Fastest rate of 158 bpm PSVT and a/rate of 39 bpm 40 PVCs, 4 couplets 1 short run of nonsustained ventricular tachycardia 4 beat duration No atrial fibrillation No blocks or pauses Cholesterol panel 11/26/2023: Triglycerides 138, total cholesterol 165, LDL 96.4, HDL 41 Assessment: 1. Aortic valve disorder - Established (stable) - 21 mmOnX Mechanical Valve On Coumadin I35.9: Nonrheumatic aortic valve disorder, unspecified HEART VALVE DISEASE: CARE INSTRUCTIONS 2. Coronary atherosclerosis - Established (stable) - MILD I25.10: Atherosclerotic heart disease of nikolski coronary artery without angina pectoris 3. Essential hypertension - Established (stable) I10: Essential (primary) hypertensio (more content not included)... [facility] Clinical Note 04-01-2023 Note Date & Type Note Facility 04-01-2023 Note [id number] #[id number] Kiana from [facility] med management called stating he is ok to hold coumadin 4 days before procedure and will not need bridged, she will call pt tp inform him [facility] Comment on above: Result Comment: Elec tronically Signed By: Norma Barajas\.br\Date and Time Signed: 04/01/23 11:59 EDT Clinical [...] held; Unasyn preop for SBE prophylaxis. 2. residential current use of anticoagulant (Z79.01: residential (current) use of anticoagulants) see # 1 Follow-up No qualifying data available Problem List/Past Medical History Ongoing BMI 35.0-35.9,adult CAD (coronary artery disease) Cardiomegaly Carotid bruit Chronic obstructive pulmonary disease Diverticular disease Essential hypertension Fecal occult blood test positive GERD (gastroesophageal reflux disease) Heart failure History of myocardial infarction Hyperlipidemia Internal hemorrhoids residential current use of anticoagulant Morbid obesity Sleep [...] mg= 1 ta (more content not included)... [facility] Comment on above: Result Comment: Elec tronically Signed By: BEBETO RODRIGUES, Leo R\.br\Date and Time Signed: 03/18/23 14:47 EDT Progress note 03-18-2023 Note Date & Type Note Facility 03-18-2023 Note [facility] Cardiology Clinic Note Chief Complaint: Patient [...] - MILD I25.10: Atherosclerotic heart disease of nikolski coronary artery without angina pectoris 3. Essential [...] problems arise Alayna Langley MD, MPH, FACC, [facility], [facility] Interventional Cardiology Pager Email: [email or web address] Evaluation + Plan note Note Date & Type Note Facility Evaluation + Plan note No data available for this section [facility] [place] [facility] Discharge instructions Note Date & Type Note Facility Hospital Discharge instructions No data available for this section [facility] [place] Progress note Note Date & Type Note Facility Progress note No data available for this section [facility] Summary Purpose Family History No Family History Records FoundNo Family History Records FoundNo Family History Records Found Advance Directives No Advanced Directives Records FoundNo Advanced Directives Records FoundNo Advanced Directives Records Found Additional Source Comments (unrecognized sect ion and content) No Status Records FoundNo Status Records FoundNo Status Records Found INFORMATION SOURCE (unrecogn ized section and content) DATE CREATED AUTHOR 12/05/2022 [facility] DATE CREATED AUTHOR AUTHOR'S ORGANIZ ATION 04/28/2023 [facility] DATE CREATED AUTHOR AUTHOR'S ORGANIZ ATION 02/02/2024 [facility] Patient Care team informatio n (unrecognized section and content) Personnel Name: Petra Wooten MD Address: Address: [address] [place], [place] [id number] FOR RECORDS PERTAINING TO PATIENTS WHO ARE [...] BE BASED ON THE PRIMARY CLINICAL RECORDS. [facility] [employer] [facility]. provides no warranty or guarantee of the accuracy or completeness of information in this document.
--- NOTE | 2024-02-17 06:58 | CA_ITS ---
Patient Name: JOSE WEST MR#: [id number] : 1950 Exam Date: 02/17/2024 Ordering Doctor: DR Alayna Langley M.D. ECHOCARDIOGRAM REPORT PROCEDURE: CA ECHO DOPPLER COMPLETE INDICATIONS: Nonrheumatic aortic valve stenosis COMPARISON: None. DESCRIPTION: COMPLETE ECHOCARDIOGRAM Real-time transthoracic echocardiography with 2D, M-mode, spectral and color flow Doppler performed. QUALITY: Technical quality was good. LEFT VENTRICLE: Normal chamber size. Thickened septal wall. LV EF: Global left ventricular systolic function is normal; visually estimated ejection fraction is 60 to 65%. No significant wall motion abnormalities. DIASTOLIC: Diastolic function is indeterminate. ATRIAL SEPTUM: Inadequately seen. LEFT ATRIUM: Normal chamber size. RIGHT ATRIUM: Normal chamber size. RIGHT VENTRICLE: Normal chamber size. Normal right ventricular systolic function. TRICUSPID VALVE: Normal mobility and thickness. Trivial tricuspid regurgitation. Mild pulmonary hypertension. RVSP 35mmHg MITRAL VALVE: Normal mobility and thickness. No evidence of mitral valve stenosis. Mild mitral annular calcification. Trivial mitral regurgitation. AORTIC VALVE: Mechanical valve well seated in the aortic position with elevated Doppler flow. Peak velocity is 3.58 m/sec. DVI is 0.32. Trivial aortic regurgitation. AORTIC ROOT: Normal diameter and appearance. PULMONIC VALVE: Normal thickness and mobility. No stenosis. Mild regurgitation. PERICARDIUM: No evidence of pericardial effusion. IVC: Collapses with inspirations. Normal size. CONCLUSION: 1. Global left ventricular systolic function is normal; visually estimated ejection fraction is 60 to 65% 2. Normal right ventricular size and systolic function 3. Diastolic function is indeterminate 4. Mildly elevated right ventricular systolic pressure; RVSP 35 mmHg 5. A mechanical aortic valve is seen with elevated Doppler flow; trivial aortic regurgitation 6. Mild pulmonic regurgitation Adult Echocardiography Procedure Report Left Ventricle LVEDD (3.7 - 5.6 cm): 3.81 cm LVESD (2.2 - 4.0 cm): 2.46 cm LVIVS thickness (0.6 - 1.2 cm): 1.45 cm LVPW thickness (0.5 - 1.0 cm): 1.23 cm e': 0.08 m/s E - e': 8.45 LVOT Max Gradient: 5.12 mm[Hg] LVOT Area (cm2): 1.13 m/s Peak Velocity (LVOT): 1.13 m/s Mean Velocity (LVOT): 0.80 m/s LVOT Diameter 2.17 cm Left Ventricular Ejection Fraction: 61.93 % Left Atrium LA Volume Index (2D A2C): 35.99 ml/m2 Left Atrium Systolic Dimension: 4.13 cm Mitral Valve MV E to A Ratio: 0.64 Mitral Valve A-Wave Peak Velocity: 0.99 m/s Mitral Valve E-Wave Peak Velocity: 0.64 m/s Right Ventricle RV Internal Diastolic Dimension: 3.33 cm Aorta AO Root Diam: 2.53 cm Ascending Ao Diam: 2.85 cm Aortic Valve AoV Area (Peak Bubba): 1.58 cm2, 1.56 cm2, 1.68 cm2, 1.68 cm2 AoV Area (VTI): 1.76 cm2, 1.68 cm2 Peak Velocity(Antegrade Flow): 2.68 m/s, 2.63 m/s, 2.49 m/s Peak Gradient(Antegrade Flow): 28.81 mm[Hg], 27.76 mm[Hg], 24.76 mm[Hg] Mean Velocity(Antegrade Flow): 1.83 m/s, 1.62 m/s Mean Gradient(Antegrade Flow): 15.26 mm[Hg], 12.80 mm[Hg] Velocity Time Integral: 51.95 cm, 47.59 cm Tricuspid Valve Peak Velocity (Regurgitant Flow): 2.54 m/s, 2.54 m/s, 2.84 m/s Pulmonic Valve Mean Gradient: 2.47 mm[Hg], 1.91 mm[Hg] Mean Velocity: 0.73 m/s, 0.64 m/s Peak Velocity: 1.07 m/s Peak Gradient: 5.12 mm[Hg], 4.10 mm[Hg] Right Atrium Right Atrium Systolic Pressure: 43.93 ml, 43.93 ml Dictated by: Alayna Langley M.D. on 02/17/2024 at 13:44 Approved by: Alayna Langley M.D. on 02/17/2024 at 13:50
[2024-02-17 07:56] LABS: Chol HDL Ratio 3.4; Cholesterol 151 mg/dL (<=200); HDL Cholesterol 44 mg/dL (40-60); Triglycerides 190 mg/dL (<=150)
--- NOTE | 2024-02-17 08:15 | NM_ITS ---
Patient Name: JOSE WEST MR#: [id number] : 1950 Exam Date: 02/17/2024 Ordering Doctor: DR BERNADETTE KIM M.D. RADIOLOGY REPORT PROCEDURE: NM SANDI PERF SPECT REST STR COMPARISON: None. INDICATIONS: ABNORMAL EKG, VENTRICULAR TACHYCARDIA TECHNIQUE: Exam Description: Stress/Rest one day protocol gated SPECT Rest Imagin.9 mCi Tc-99m Cardiolite IV on 02/17/2024 Stress Imaging 29.5 mCi Tc-99m Cardiolite IV on 02/17/2024 Exercise Protocol: 0.4 mg Lexiscan given IV Heart Rate (bpm): Rest: 53 Max: 70 PMHR: 47 Blood Pressure: Rest: 122/92 Max: 122/92 Symptoms: Rest and peak stress ECG findings were normal and the exercise portion of the study was normal per attending physician Dr. Frederick . For more details please see separate cardiac stress test report. FINDINGS: QUALITY OF STUDY: Excellent. PERFUSION DEFECT: LOCATION: Mid-inferior. SIZE: Small (1-2 segments). SEVERITY: Mild. TYPE: Persistent. WALL MOTION: Normal. LV SIZE: Normal. 59 mL. TID / TCD: None; 0.9 LVEF: Normal. Calculated EF 76%. SUMMARY: Myocardial perfusion imaging study has ABNORMAL findings. CONCLUSION: 1. No acute or reversible ischemia. 2. Diaphragm attenuation artifact versus small , mild fixed perfusion defect of mid inferior wall. 3. Normal wall motion, left ventricle volume, and ejection fraction. Dictated by: Jay Hernandez M.D. on 02/18/2024 at 12:51 Approved by: Jay Hernandez M.D. on 02/18/2024 at 15:24
[2024-02-17 09:53] LABS: Alanine Aminotransferase 42 U/L (16-63); Albumin Globulin Ratio 1.2; Albumin Level 4.1 g/dL (3.4-5.0); Alkaline Phosphatase 107 U/L (46-116); Aspartate Amino Transferase 31 U/L (15-37); Bilirubin Direct 0.1 mg/dL (0.0-0.2); Bilirubin Total 0.4 mg/dL (0.2-1.0); Globulin 3.4 g/dL; Total Protein 7.5 g/dL (6.4-8.2)
[2024-02-17] MEDS: REGADENOSON 0.4 MG/5 ML SYRINGE IV (10:35)
--- NOTE | 2024-02-17 10:52 | PC.NURSE ---
Nursing Note Cardiac Stress Test Reviewed: Medication, allergies and patient history reviewed. Stress Test: [x ] Patient tolerated stress test well. [ ] Patient unable to tolerate walking on treadmill. Switched to Lexiscan stress test. [x ] No chest pain noted per patient [ ] Chest pain that resolved prior to leaving stress lab. [ x] No dyspnea noted. [ ] Dyspnea that resolved prior to leaving stress lab. [x ] Patient left stress lab asymptomatic and hemodynamically stable. [ ] Patient taken to the Emergency Room due to non-resolving symptoms following stress test. [ ] Patient achieved target heart rate. [ ] Patient unable to achieve target heart rate. [ ] Aminophylline administered as reversal agent to Lexiscan (Regadenoson). [ ] Nitro administered. Nursing Comments:Pt tolerated Lexiscan stress test well. No issues noted. Pt left stress lab to go eat breakfast with no symptoms.
--- NOTE | 2024-02-17 11:36 | US_ITS ---
The [address] [address] Patient Name: JOSE WEST MRN: [id number] date: 1950 Sex: M Assigned Patient Location: LAB Current Patient Location: LAB Accession/Order Number: [id number] Exam Date: 02/17/2024 11:40 Report Date: 02/17/2024 20:26 At the request of: BERNADETTE KIM Procedure: US carotid duplex BI DUPLEX ULTRASOUND EXAMINATION OF THE CAROTID ARTERIES. COMPARISON: None. HISTORY / INDICATIONS: Dizziness TECHNIQUE: Bilateral common carotid arteries, extracranial internal and external carotid arteries are evaluated with woodward-scale imaging, color Doppler, and spectral analysis according to a standard protocol. ICA-CCA ratios are calculated with civil rights representative peak-systolic velocities and recorded. Vertebral arteries are evaluated in one segment to evaluate for patency and character of flow. Comparison with previous evaluation is performed when available. Unless otherwise specified, all velocities are measured in cm/sec. Carotid stenosis is reported according to validated velocity parameters, similar to NASCET criteria. FINDINGS: Right Carotid: Plaque was noted. Velocity measurements as follows: Internal Carotid Artery 81/27, 58/12, and 143/53. ICA to CCA ratio: 1.4. Left Carotid: Plaque was noted. Velocity measurements as follows: Internal Carotid Artery 111/19, 89/22, and 82/17. ICA to CCA ratio: 0.9. Retrograde flow is noted within the right vertebral artery. Antegrade flow seen within the left vertebral artery. CONCLUSION: 1. Less than 50% stenosis of the right ICA. 2. Less than 50% stenosis of the left ICA. 3. Retrograde right vertebral artery flow with antegrade left vertebral artery flow. Electronically authenticated by: Juan ANDERSEN Date: 02/17/2024 20:26
== END 2024-02-17 06:43 | disposition home or self-care (01) ==
LOC: LAB 06:44
PROVIDERS: PCP Family Medicine; Visit Provider Internal Medicine Interventional Cardiology
DX: R94.31 Abnormal electrocardiogram [ECG] [EKG] (principal); I47.29 Other ventricular tachycardia; I35.0 Nonrheumatic aortic (valve) stenosis; R42 Dizziness and giddiness; E78.5 Hyperlipidemia, unspecified
CPT/HCPCS: 36415; 78452; 80061; 80076; 93017; 93306; 93880; A9500; J2785

== ENCOUNTER 2024-02-29 01:37 | Outpatient (RCR) | payer MEDICARE, SELFPAY | END 2024-03-28 23:57 | disposition home or self-care (01) | LOC: MM 01:37 | PROVIDERS: PCP Family Medicine; Visit Provider Internal Medicine | DX: Z51.81 Encounter for therapeutic drug level monitoring (principal); Z79.01 Long term (current) use of anticoagulants; I48.91 Unspecified atrial fibrillation ==

== ENCOUNTER 2024-03-04 09:49 | Outpatient (OUT) | payer MEDICARE, SELFPAY ==
--- OUTSIDE RECORDS SUMMARY | 2024-03-04 10:03 | XMS_ITS | CCD ---
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 Name Role Phone SUGAR ., DR LAMBERT Primary Care Unavailable FAWWAD, [...] Unavailable SHAIKH Juan Luis HENDERSON Attending Unavailable SUGAR ., DR LAMBERT Primary Care Unavailable JACKIE, [...] Unavailable HOY ., DR LAMBERT Attending Unavailable DALLAS, DR LISBET Santamaria Consulting Unavailable GAGE CARTER Consulting Unavailable HOY ., DR LAMBERT Primary Care Unavailable HOY ., DR LAMBERT Admitting Unavailable HOY ., DR LAMBERT Consulting Unavailable HOY ., DR LAMBERT Attending Unavailable HOY ., DR LAMBERT Primary Care Unavailable ELTAHAWY, DR FLEMING Consulting Unavailable ELTAHAWJessica, DR FLEMING Attending Unavailable JULIO, DR FLEMING Admitting Unavailable Petra Wooten Primary Care Physician Leo TATE Attending Unavailable Leo TATE Attending Unavailable ELTAHAWJessica, ALAYNA Attending Unavailable ELTAHAWJessica, ALAYNA Attending Unavailable [facility]LAYNA Attending Unavailable Allergies Allergy Classification Reported Allergen(s) Allergy Type Date of Onset Reaction(s) Facility (1 source) No Known Medication Allergies; Translations: [No Known Medication Allergies] Propensity to adverse reactions (disorder) [facility] Repository Medications Current Medications Medication [...] Onset: 11-17-2022 Chronic Disorders of lipid metabolism (5 sources) Hyperlipidemia, unspecified; Translations: [Pure hypercholesterolemi a, [...] Onset: 01-01-2022 Episodic Other aftercare (1 source) FDC (current) use of anticoagulants; Translations: [LOG FEEDER CURRNT USE ANTICOAGULANTS] Onset: 11-26-2022 Episodic Other aftercare (2 sources) Long-term current use of anticoagulant; Translations: [terminal makeup operator (current) use of anticoagulants] Onset: 03-18-2023 Episodic [...] mental disorders or infectious disease) (2 sources) Abnormal findings on diagnostic imaging of other specified body structures; Translations: [Abnormal findings on diagnostic imaging of other specified body structures] Onset: 03-01-2024 Chronic Other screening for suspected conditions (not [...] 06-08-2022 Episodic Other aftercare (1 source) Other terminal makeup operator (current) drug therapy; Translations: [OTH PRISON CURRENT DRUG THERAPY] Onset: 06-11-2022 Episodic Other aftercare (1 source) terminal makeup operator (current) use of aspirin; Translations: [PRISON CURRENT USE OF ASPIRIN] Onset: 01-01-2022 Episodic [...] Test Name Value Interpretation Reference Range Facility Office Visiton 03-01-2024 Follow-up visit [id number] Martin West 1950 M Date Provider Department Center 03/01/2024 Sandra-ALAYNA LANGLEY DELISA Kelley Family History Problem Relation Age of Onset No Known Problems Mother No Known Problems Father Family Status - Relation Status Age at Mother Father Level of Service:[address] [place] OFFICE/OUTPATIENT ESTABLISHED MOD MDM 30 MIN Normal [facility] 36on 02-24-2024 36 Spoke with patient and informed him of results. He is scheduled for follow up with Dr. Langley on 03/01 and would like to discuss things with him then. [facility] 36on 02-22-2024 36 Regarding stress bro t from 02/17/2024: MD Sophy Breaux MA Please reassure the patient that his stress test was nonischemic Thank you Dr. Langley, were you able to also review his carotid US and echo from last week? [facility] 36on 02-17-2024 36 I just scanned in patient's lipid and liver profiles that were drawn this morning. I believe you wanted them done in Apr. Can you review them and I'll also let the patient know they'll need to be repeated in 3 months if you still want them. Thanks! [facility] Follow-Upon 02-01-2024 Follow-Up [id number] Martin West 1950 M Date Provider Department Center 02/01/2024 ALAYNA RANDALL CARD Charleen Hos Family History Problem Relation Age of Onset No Known Problems Mother No Known Problems Father Family Status - Relation Status Age at Mother Father Level of Service:[address]625 [place] OFFICE/OUTPATIENT ESTABLISHED MOD MDM 30 MIN [facility] Outside Colonoscopyon 2022 Outside Colonoscopy [id number] .00TIFF [facility] Reminderson 04-09-2023 Reminders - From: Karlene Stewart LPN To: GSN - Clinical; Sent: 04/09/2023 10:49:10 EDT Show up: 03/09/2033 07:00:00 EDT Subject: colonoscopy recall Due Date/Time: 04/08/2033 07:00:00 EDT Reminder/Recall Patient due for screening colonoscopy 04/08/2033. [facility] Consent for Procedure/Surger yon 03-19-2023 Consent for Procedure/Surgery [id number]# 1.00CD:127 Normal [facility] Facesheeton 03-19-2023 Facesheet [id number]# 1.00CD:127 Normal [facility] Ambulatory Visit Summaryon 0 03-18-2023 Ambulatory Visit Summary MARTIN WEST :1950 Visit Date:03/18/2023 Ambulatory Visit Instructions Your Diagnosis Fecal occult blood test positive FDC current use of anticoagulant Your Care Team Attending Physician - BEBETO RODRIGUES, Leo Melgar Primary Care Physician - Sugar RODRIGUES, Petra This Is Your Medications List Contact prescribing [...] History of myocardial infarction Hyperlipidemia Internal hemorrhoids 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 Nicotine dependence Normal [facility] Office Visiton 03-18-2023 Follow-up visit [id number] Martin West 1950 M Date Provider Department [facility] No family history on file Level of Service:[address] [place] OFFICE/OUTPATIENT ESTABLISHED LOW MDM 20-29 MIN Normal [facility] Physician Referralon 023 Physician Referral [id number]. 00CD:127 Normal [facility] INSULINon 11-15-2022 Insulin 20.3 uIU/mL Normal 2.6-24.9 [facility] Comment on above: Performed By: #### I NSULIN #### [facility] [address] [address] [address] Kamaljit Browning CBC AUTO DIFFon 11-14-2022 BASO # 0.0 103/ul Normal 0.0-0.1 [facility] Comment on above: Performed By: #### C MP, BNP #### [facility] [address] [place] [address] Dr. Kamaljit Browning Basophils/100 WBC (Bld) 0.8 % Normal 0.2-2.0 [facility] Comment on above: Performed By: #### C MP, BNP #### [facility] [address] [place] [address] Dr. Kamaljit Browning EO # 0.1 103/ul Normal 0.0-0.7 [facility] Comment on above: Performed By: #### C MP, BNP #### [facility] [address] [place] [address] Dr. Kamaljit Browning Eosinophils/100 WBC (Bld) 1.7 % Normal 0.9-7.0 [facility] Comment on above: Performed By: #### C MP, BNP #### [facility] [address] [place] [address] Dr. Kamaljit Browning Erythrocyte distribution width (RBC) [Ratio] 12.7 % Normal 11.0-15.0 [facility] Comment on above: Performed By: #### C MP, BNP #### [facility] [address] [place] [address] Dr. Kamaljit Browning Hematocrit (Bld) [Volume fraction] 38.4 % Critically low 42.0-54.0 [facility] Comment on above: Performed By: #### C MP, BNP #### [facility] [address] [place] [address] Dr. Kamaljit Browning Hemoglobin (Bld) [Mass/Vol] 12.8 g/dL Critically low 14.0-18.0 [facility] Comment on above: Performed By: #### C MP, BNP #### [facility] [address] [place] [address] Dr. Kamaljit Browning IG # 0.02 10e3/ul Normal 0.00-0.03 [facility] Comment on above: Performed By: #### C MP, BNP #### [facility] [address] [place] [address] Dr. Kamaljit Browning IG % 0.4 % Normal 0.0-0.5 [facility] Comment on above: Performed By: #### C MP, BNP #### [facility] [address] [place] [address] Dr. Kamaljit Browning LYMPH # 0.8 103/ul Critically low 1.2-3.8 [facility] Comment on above: Performed By: #### C MP, BNP #### [facility] [address] [place] [address] Dr. Kamaljit Browning Lymphocytes/100 WBC (Bld) 15.2 % Critically low 20.5-60.0 [facility] Comment on above: Performed By: #### C MP, BNP #### [facility] [address] [place] [address] Dr. Kamaljit Browning MANUAL DIFF REQ NO Normal [facility] Comment on above: Performed By: #### C MP, BNP #### [facility] [address] [place] [address] Dr. Kamaljit Browning MCH (RBC) [Entitic mass] 30.6 pg Normal 25.9-34.0 [facility] Comment on above: Performed By: #### C MP, BNP #### [facility] [address] [place] [address] Dr. Kamaljit Browning MCHC (RBC) [Mass/Vol] 33.3 g/dL Normal 29.9-35.2 [facility] Comment on above: Performed By: #### C MP, BNP #### [facility] [address] [place] [address] Dr. Kamaljit Browning MCV (RBC) [Entitic vol] 91.9 fL Normal 80.0-94.0 [facility] Comment on above: Performed By: #### C MP, BNP #### [facility] [address] [place] [address] Dr. Kamaljit Browning MONO # 0.5 103/ul Normal 0.3-0.8 [facility] Comment on above: Performed By: #### C MP, BNP #### [facility] [address] [place], [place] [id number] Dr. Kamaljit Browning Monocytes/100 WBC (Bld) 8.9 % Normal 1.7-12.0 [facility] Comment on above: Performed By: #### C MP, BNP #### [facility] [address] [place] [address] Dr. Kamaljit Browning NEUT # 3.8 103/ul Normal 1.4-6.5 [facility] Comment on above: Performed By: #### C MP, BNP #### [facility] [address] [place] [address] Dr. Kamaljit Browning Neutrophils/100 WBC (Bld) 73.0 % Normal 43.0-75.0 [facility] Comment on above: Performed By: #### C MP, BNP #### [facility] [address] [place] [address] Dr. Kamaljit Browning Platelet mean volume (Bld) [Entitic vol] 12.5 fL Normal 9.5-13.5 [facility] Comment on above: Performed By: #### C MP, BNP #### [facility] [address] [place] [address] Dr. Kamaljit Browning PLT 126 103/ul Critically low 150-450 [facility] Comment on above: Performed By: #### C MP, BNP #### [facility] [address] [place] [address] Dr. Kamaljit Browning RBC 4.18 106/ul Critically low 4.70-6.10 [facility] Comment on above: Performed By: #### C MP, BNP #### [facility] [address] [place] [address] Dr. Kamaljit Browning WBC 5.2 103/ul Normal 4.0-11.0 [facility] Comment on above: Performed By: #### C MP, BNP #### [facility] [address] [place] [address] Dr. Kamaljit Browning FREE THYROXINE INDEX T7on FTI 2.31 Normal 1.30-4.50 [facility] Comment on above: Performed By: #### C BC #### [facility] [address] [address] [address] Kamaljit Browning T3U 34.0 % Normal 33.0-40.0 [facility] Comment on above: Performed By: #### C BC #### [facility] [address] [address] [address] Kamaljit Browning T4 [Mass/Vol] 6.80 ug/dL Normal 4.50-12.10 [facility] Comment on above: Performed By: #### C BC #### [facility] [address] [place] [address] Dr. Kamaljit Browning GLYCOHEMOGLOBIN A1Con 2022 ADA RECOMMENDATION SEE BELOW Normal [facility] Comment on above: Result Comment: ADA RECOMMENDED LIMIT 4.0 - 6.0 ADA THERAPEUTIC TARGET < 7.0 ACTION SUGGESTED > 7.0 Performed By: #### A 1C #### [facility] [address] [place] [address] Dr. Kamaljit Browning Glucose [Mass/Vol] 154 mg/dL Normal [facility] Comment on above: Performed By: #### A 1C #### [facility] [address] [place] [address] Dr. Kamaljit Browning HbA1c (Bld) [Mass fraction] 7.0 % Critically high 4.5-6.2 [facility] Comment on above: Performed By: #### A 1C #### [facility] [address] [place] [address] Dr. Kamaljit Browning LIPID PROFILEon 11-14-2022 CHOL-HDL RATIO NORM SEE BELOW Normal [facility] Comment on above: Result Comment: 3.3 - 4.4 LOW RISK 4.4 - 7.1 AVERAGE RISK 7.1 - 11.0 MODERATE RISK >11.0 HIGH RISK Performed By: #### A 1C #### [facility] [address] [place] [address] Dr. Kamaljit Browning Cholesterol [Mass/Vol] 148 mg/dL Normal <=200 [facility] Comment on above: Performed By: #### A 1C #### [facility] [address] [place] [address] Dr. Kamaljit Browning Cholesterol in HDL [Mass/Vol] 41 mg/dL Normal 40-60 [facility] Comment on above: Performed By: #### A 1C #### [facility] [address] [address] [address] Kamaljit Browning Cholesterol in LDL [Mass/Vol] 81.6 mg/dL Normal [facility] Comment on above: Performed By: #### A 1C #### [facility] [address] [address] [address] Kamaljit Browning Cholesterol.total/Ch olesterol in HDL [Mass ratio] 3.6 {ratio} Normal [facility] Comment on above: Performed By: #### A 1C #### [facility] [address] [place] [address] Dr. Kamaljit Browning HDL NORMAL > or = 60 mg/dl - LO W CARDIOVASCULAR RISK <40 mg/dl - HIGH CARDIOVASCULAR RISK Normal [facility] Comment on above: Performed By: #### A 1C #### [facility] [address] [address] [address] Kamaljit Browning LDL CALC NORMAL SEE BELOW Normal [facility] Comment on above: Result Comment: <100 mg/dl OPTIMAL 100 - 129 mg/dl NEAR OR ABOVE OPTIMAL 130 - 159 mg/dl BORDERLINE HIGH 160 - 189 mg/dl HIGH >190 mg/dl VERY HIGH Performed By: #### A 1C #### [facility] [address] [place] [address] Dr. Kamaljit Browning Triglyceride [Mass/Vol] 127 mg/dL Normal <=150 [facility] Comment on above: Performed By: #### A 1C #### [facility] [address] [place] [address] Dr. Kamaljit Browning VLDL CALC 25.4 mg/dL Normal [facility] Comment on above: Performed By: #### A 1C #### [facility] [address] [place] [address] Dr. Kamaljit Browning PROF 14(COMP METB)on 023 Albumin [Mass/Vol] 4.2 g/dL Normal 3.4-5.0 [facility] Comment on above: Performed By: #### A 1C #### [facility] [address] [place] [address] Dr. Kamaljit Browning Albumin/Globulin [Mass ratio] 1.3 {ratio} Normal [facility] Comment on above: Performed By: #### A 1C #### [facility] [address] [place] [address] Dr. Kamaljit Browning ALP [Catalytic activity/Vol] 79 U/L Normal 46-116 [facility] Comment on above: Performed By: #### A 1C #### [facility] [address] [place] [address] Dr. Kamaljit Browning ALT [Catalytic activity/Vol] 27 U/L Normal 16-63 [facility] Comment on above: Performed By: #### A 1C #### [facility] [address] [place] [address] Dr. Kamaljit Browning Anion gap [Moles/Vol] 15.0 mmol/L Normal [facility] Comment on above: Performed By: #### A 1C #### [facility] [address] [place] [address] Dr. Kamaljit Browning AST [Catalytic activity/Vol] 23 U/L Normal 15-37 [facility] Comment on above: Performed By: #### A 1C #### [facility] [address] [place] [address] Dr. Kamaljit Browning Bilirubin [Mass/Vol] 0.3 mg/dL Normal 0.2-1.0 [facility] Comment on above: Performed By: #### A 1C #### [facility] [address] [place] [address] Dr. Kamaljit Browning Calcium [Mass/Vol] 9.0 mg/dL Normal 8.5-10.1 [facility] Comment on above: Performed By: #### A 1C #### [facility] [address] [place] [address] Dr. Kamaljit Browning Chloride [Moles/Vol] 105 mmol/L Normal 98-107 [facility] Comment on above: Performed By: #### A 1C #### [facility] [address] [place] [address] Dr. Kamaljit Browning CO2 [Moles/Vol] 24.7 mmol/L Normal 21.0-32.0 [facility] Comment on above: Performed By: #### A 1C #### [facility] [address] [address] [address] Kamaljit Browning Creatinine [Mass/Vol] 1.55 mg/dL Critically high 0.70-1.30 [facility] Comment on above: Performed By: #### A 1C #### [facility] [address] [address] [address] Kamaljit Browning EGFR-AF [place] 54 mL/min/1.73m2 Critically low >=60 [facility] Comment on above: Performed By: #### A 1C #### [facility] [address] [address] [address] Kamaljit Browning EGFR-NON AF [place] 45 mL/min/1.73m2 Critically low >=60 [facility] Comment on above: Performed By: #### A 1C #### [facility] [address] [address] [address] Kamaljit Browning Globulin (S) [Mass/Vol] 3.3 g/dL Normal [facility] Comment on above: Performed By: #### A 1C #### [facility] [address] [address] [address] Kamaljit Browning Glucose [Mass/Vol] 129 mg/dL Critically high 74-[address] [facility] Comment on above: Performed By: #### A 1C #### [facility] [address] [address] [address] Kamaljit Browning Potassium [Moles/Vol] 4.7 mmol/L Normal 3.5-5.1 [facility] Comment on above: Performed By: #### A 1C #### [facility] [address] [address] [address] Kamaljit Browning Protein [Mass/Vol] 7.5 g/dL Normal 6.4-8.2 [facility] Comment on above: Performed By: #### A 1C #### [facility] [address] [address] [address] Kamaljit Browning Sodium [Moles/Vol] 140 mmol/L Normal 136-145 [facility] Comment on above: Performed By: #### A 1C #### [facility] [address] [place] [address] Dr. Kamaljit Browning Urea nitrogen [Mass/Vol] 30.0 mg/dL Critically high 7.0-18.0 [facility] Comment on above: Performed By: #### A 1C #### [facility] [address] [place] [address] Dr. Kamaljit Browning Urea nitrogen/Creatinine [Mass ratio] 19.4 mg/mg Normal [facility] Comment on above: Performed By: #### A 1C #### [facility] [address] [place] [address] Dr. Kamaljit Browning TSHon 11-14-2022 TSH 1.597 uIU/mL Normal 0.358-3.740 [facility] Comment on above: Performed By: #### A 1C #### [facility] [address] [place] [address] Dr. Kamaljit Browning URIC ACID SERUMon 11-14-2022 Urate [Mass/Vol] 9.4 mg/dL Critically high 3.5-7.2 [facility] Comment on above: Performed By: #### C BC #### [facility] [address] [place] [address] Dr. Kamaljit Browning OCC BLD IMMUNO SCREENon 10-27 OCCULT BLOOD Positive Abnormal NEGATIVE [facility] Comment on above: Performed By: #### C MP, BNP #### [facility] [address] [place] [address] Dr. Kamaljit Browning POINT OF CARE GLUCOSEon 05-29 Glucose [Mass/Vol] 329 mg/dL Critically high 74-[address] [facility] Comment on above: Performed By: #### A 1C #### [facility] [address] [place] [address] Dr. Kamaljit Browning Covid-19 [facility]on SARS-CoV-2 (COVID-19) RNA SOURAV+probe Ql (Unsp spec) Not detected Normal NOT DETECTED [facility] Comment on above: Result Comment: When [...] for this test is supported by the [employer] Sales Consultant of Health and Human Service's declaration that [...] used). Performed By: #### A 1C #### [facility] [address] [place] [address] Dr. Kamaljit Browning INFLUENZA A AND B [facility] 06-02 [facility] SEE BELOW Normal [facility] Comment on above: Result Comment: Nega tive for Flu A protein angiten. Infection due to Flu A cannot be ruled out. Flu A angiten in the sample may be below the detection limit of the test. Performed By: #### C BC #### [facility] [address] [place] [address] Dr. Kamaljit Browning [facility] SEE BELOW Normal [facility] Comment on above: Result Comment: Nega tive for Flu B protein antigen. Infection due to Flu B cannot be ruled out. Flu B antigen in the sample may be below the detection limit of the test. Performed By: #### C BC #### [facility] [address] [place] [address] Dr. Kamaljit Browning INFLUENZA A AG Negative Normal NEGATIVE SEE COMMENT [facility] Comment on above: Performed By: #### C BC #### [facility] [address] [place] [address] Dr. Kamaljit Browning INFLUENZA B AG Negative Normal NEGATIVE SEE COMMENT [facility] Comment on above: Performed By: #### C BC #### [facility] [address] [address] [address] Kamaljit Browning INTERNAL CONTROLS Within Normal Limits Normal Wi thin Normal Limits [facility] Comment on above: Performed By: #### C BC #### [facility] [address] [address] [address] Kamaljit Browning PROF CHEM 8 (BAS METB)on Anion gap [Moles/Vol] 13.1 mmol/L Normal [facility] Comment on above: Performed By: #### C BC #### [facility] [address] [address] [address] Kamaljit Browning Calcium [Mass/Vol] 8.9 mg/dL Normal 8.5-10.1 [facility] Comment on above: Performed By: #### C BC #### [facility] [address] [address] [address] Kamaljit Browning Chloride [Moles/Vol] 105 mmol/L Normal 98-107 [facility] Comment on above: Performed By: #### C BC #### [facility] [address] [address] [address] Kamaljit Browning CO2 [Moles/Vol] 27.3 mmol/L Normal 21.0-32.0 [facility] Comment on above: Performed By: #### C BC #### [facility] [address] [address] [address] Kamaljit Browning Creatinine [Mass/Vol] 1.28 mg/dL Normal 0.70-1.30 [facility] Comment on above: Performed By: #### C BC #### [facility] [address] [address] [address] Kamaljit Browning EGFR-AF [place]ER >60 Normal >=60 [facility] Comment on above: Performed By: #### C BC #### [facility] [address] [address] [address] Kamaljit Browning EGFR-NON AF [place] 56 mL/min/1.73m2 Critically low >=60 [facility] Comment on above: Performed By: #### C BC #### [facility] [address] [address] [address] Kamaljit Browning Glucose [Mass/Vol] 119 mg/dL Critically high 74-[address] [facility] Comment on above: Performed By: #### C BC #### [facility] [address] [address] [address] Kamaljit Browning Potassium [Moles/Vol] 4.4 mmol/L Normal 3.5-5.1 [facility] Comment on above: Performed By: #### C BC #### [facility] [address] [address] [address] Kamaljit Browning Sodium [Moles/Vol] 141 mmol/L Normal 136-145 [facility] Comment on above: Performed By: #### C BC #### [facility] [address] [place] [address] Dr. Kamaljit Browning Urea nitrogen [Mass/Vol] 20.0 mg/dL Critically high 7.0-18.0 [facility] Comment on above: Performed By: #### C BC #### [facility] [address] [place] [address] Dr. Kamaljit Browning Urea nitrogen/Creatinine [Mass ratio] 15.6 mg/mg Normal [facility] Comment on above: Performed By: #### C BC #### [facility] [address] [address] [address] Kamaljit Browning METANEPHRINES PLASMA FREEon 01-18-2022 Metanephrine, Pl 46.2 pg/mL Normal 0.0-88.0 [facility] Comment on above: Performed By: #### C MP, BNP #### [facility] [address] [place] [address] Dr. aKmaljit Browning Normetanephrine, Pl 33.2 pg/mL Normal 0.0-285.2 [facility] Comment on above: Performed By: #### C MP, BNP #### [facility] [address] [address] [address] Kamaljit Browning ALDOSTERONE: RENIN RATIOon 0 01-08-2022 Aldos/Renin Ratio UPTCAL Normal [facility] Comment on above: Result Comment: Unab le to calculate result since non-numeric result obtained for component test. Units: ng/dL per ng/mL/hr Performed By: #### A LDOREN #### [facility] [address] [place] [address] Dr. Kamaljit Browning Aldosterone <1.0 Normal 0.0-30.0 [facility] Comment on above: Performed By: #### A LDOREN #### [facility] [address] [place] [address] Dr. Kamaljit Browning Renin Activity, Plasma <0.167 Critically low 0.167-5.380 [facility] Comment on above: Performed By: #### A LDOREN #### [facility] [address] [place] [address] Dr. Kamaljit Browning CATECHOLAMINES FRAC, PLASMAo n 12-31-2021 Dopamine, Pl <30 Normal 0-48 [facility] Comment on above: Performed By: #### C MP, BNP #### [facility] [address] [place] [address] Dr. Kamaljit Browning Epinephrine, Pl 58 pg/mL Normal 0-62 [facility] Comment on above: Performed By: #### C MP, BNP #### [facility] [address] [place] [address] Dr. Kamaljit Browning Norepinephrine, Pl 246 pg/mL Normal 0-874 [facility] Comment on above: Performed By: #### C MP, BNP #### [facility] [address] [place] [address] Dr. Kamaljit Browning BNPon 12-26-2021 Natriuretic peptide B (Bld) [Mass/Vol] 126.0 pg/mL Normal <=900.0 [facility] Comment on above: Performed By: #### C MP, BNP #### [facility] [address] [place] [address] Dr. Kamaljit Browning CBC AUTO DIFFon 12-26-2021 BASO # 0.1 103/ul Normal 0.0-0.1 [facility] Comment on above: Performed By: #### C BC #### [facility] [address] [place] [address] Dr. Kamaljit Browning Basophils/100 WBC (Bld) 0.9 % Normal 0.2-2.0 [facility] Comment on above: Performed By: #### C BC #### [facility] [address] [place] [address] Dr. Kamaljit Browning EO # 0.1 103/ul Normal 0.0-0.7 [facility] Comment on above: Performed By: #### C BC #### [facility] [address] [place] [address] Dr. Kamaljit Browning Eosinophils/100 WBC (Bld) 1.0 % Normal 0.9-7.0 [facility] Comment on above: Performed By: #### C BC #### [facility] [address] [place] [address] Dr. Kamaljit Browning Erythrocyte distribution width (RBC) [Ratio] 12.1 % Normal 11.0-15.0 [facility] Comment on above: Performed By: #### C BC #### [facility] [address] [place] [address] Dr. Kamaljit Browning Hematocrit (Bld) [Volume fraction] 39.2 % Critically low 42.0-54.0 [facility] Comment on above: Performed By: #### C BC #### [facility] [address] [place] [address] Dr. Kamaljit Browning Hemoglobin (Bld) [Mass/Vol] 13.2 g/dL Critically low 14.0-18.0 [facility] Comment on above: Performed By: #### C BC #### [facility] [address] [place] [address] Dr. Kamaljit Browning IG # 0.01 10e3/ul Normal 0.00-0.03 [facility] Comment on above: Performed By: #### C BC #### [facility] [address] [place] [address] Dr. Kamaljit Browning IG % 0.2 % Normal 0.0-0.5 [facility] Comment on above: Performed By: #### C BC #### [facility] [address] [place], [place] [id number] Dr. Kamaljit Browning LYMPH # 1.1 103/ul Critically low 1.2-3.8 [facility] Comment on above: Performed By: #### C BC #### [facility] [address] [place] [address] Dr. Kamaljit rBowning Lymphocytes/100 WBC (Bld) 18.5 % Critically low 20.5-60.0 [facility] Comment on above: Performed By: #### C BC #### [facility] [address] [place] [address] Dr. Kamaljit Browning MANUAL DIFF REQ NO Normal [facility] Comment on above: Performed By: #### C BC #### [facility] [address] [place] [address] Dr. Kamaljit Browning MCH (RBC) [Entitic mass] 30.5 pg Normal 25.9-34.0 [facility] Comment on above: Performed By: #### C BC #### [facility] [address] [place] [address] Dr. Kamaljit Browning MCHC (RBC) [Mass/Vol] 33.7 g/dL Normal 29.9-35.2 [facility] Comment on above: Performed By: #### C BC #### [facility] [address] [place] [address] Dr. Kamaljit Browning MCV (RBC) [Entitic vol] 90.5 fL Normal 80.0-94.0 [facility] Comment on above: Performed By: #### C BC #### [facility] [address] [place] [address] Dr. Kamaljit Browning MONO # 0.4 103/ul Normal 0.3-0.8 [facility] Comment on above: Performed By: #### C BC #### [facility] [address] [place] [address] Dr. Kamaljit Browning Monocytes/100 WBC (Bld) 7.7 % Normal 1.7-12.0 [facility] Comment on above: Performed By: #### C BC #### [facility] [address] [place] [address] Dr. Kamaljit Browning NEUT # 4.1 103/ul Normal 1.4-6.5 [facility] Comment on above: Performed By: #### C BC #### [facility] [address] [place] [address] Dr. Kamaljit Browning Neutrophils/100 WBC (Bld) 71.7 % Normal 43.0-75.0 [facility] Comment on above: Performed By: #### C BC #### [facility] [address] [place] [address] Dr. Kamaljit Browning Platelet mean volume (Bld) [Entitic vol] 12.9 fL Normal 9.5-13.5 [facility] Comment on above: Performed By: #### C BC #### [facility] [address] [place] [address] Dr. Kamaljit Browning PLT 129 103/ul Critically low 150-450 [facility] Comment on above: Performed By: #### C BC #### [facility] [address] [place] [address] Dr. Kamaljit Browning RBC 4.33 106/ul Critically low 4.70-6.10 [facility] Comment on above: Performed By: #### C BC #### [facility] [address] [place] [address] Dr. Kamaljit Browning WBC 5.7 103/ul Normal 4.0-11.0 [facility] Comment on above: Performed By: #### C BC #### [facility] [address] [place] [address] Dr. Kamaljit Browning PROF 14(COMP METB)on 022 Albumin [Mass/Vol] 3.9 g/dL Normal 3.4-5.0 [facility] Comment on above: Performed By: #### C MP, BNP #### [facility] [address] [place] [address] Dr. Kamaljit Browning Albumin/Globulin [Mass ratio] 1.2 {ratio} Normal [facility] Comment on above: Performed By: #### C MP, BNP #### [facility] [address] [place] [address] Dr. Kamaljit Browning ALP [Catalytic activity/Vol] 83 U/L Normal 46-116 [facility] Comment on above: Performed By: #### C MP, BNP #### [facility] [address] [place] [address] Dr. Kamaljit Browning ALT [Catalytic activity/Vol] 30 U/L Normal 16-63 [facility] Comment on above: Performed By: #### C MP, BNP #### [facility] [address] [place] [address] Dr. Kamaljit Browning Anion gap [Moles/Vol] 12.6 mmol/L Normal [facility] Comment on above: Performed By: #### C MP, BNP #### [facility] [address] [place] [address] Dr. Kamaljit Browning AST [Catalytic activity/Vol] 28 U/L Normal 15-37 [facility] Comment on above: Performed By: #### C MP, BNP #### [facility] [address] [place] [address] Dr. Kamaljit Browning Bilirubin [Mass/Vol] 0.6 mg/dL Normal 0.2-1.0 [facility] Comment on above: Performed By: #### C MP, BNP #### [facility] [address] [place] [address] Dr. Kamaljit Browning Calcium [Mass/Vol] 8.9 mg/dL Normal 8.5-10.1 [facility] Comment on above: Performed By: #### C MP, BNP #### [facility] [address] [place] [address] Dr. Kamaljit Browning Chloride [Moles/Vol] 107 mmol/L Normal 98-107 [facility] Comment on above: Performed By: #### C MP, BNP #### [facility] [address] [place] [address] Dr. Kamaljit Browning CO2 [Moles/Vol] 26.4 mmol/L Normal 21.0-32.0 [facility] Comment on above: Performed By: #### C MP, BNP #### [facility] [address] [place] [address] Dr. Kamaljit Browning Creatinine [Mass/Vol] 1.11 mg/dL Normal 0.70-1.30 [facility] Comment on above: Performed By: #### C MP, BNP #### [facility] [address] [place] [address] Dr. Kamaljit Browning EGFR-AF CAY[place] ISLANDER >60 Normal >=60 [facility] Comment on above: Performed By: #### C MP, BNP #### [facility] [address] [address] [address] Kamaljit Browning EGFR-NON AF [place] ISLANDER >60 Normal >=60 [facility] Comment on above: Performed By: #### C MP, BNP #### [facility] [address] [place] [address] Dr. Kamaljit Browning Globulin (S) [Mass/Vol] 3.2 g/dL Normal [facility] Comment on above: Performed By: #### C MP, BNP #### [facility] [address] [place] [address] Dr. Kamaljit Browning Glucose [Mass/Vol] 112 mg/dL Critically high 74-106 [facility] Comment on above: Performed By: #### C MP, BNP #### [facility] [address] [place] [address] Dr. Kamaljit Browning Potassium [Moles/Vol] 4.0 mmol/L Normal 3.5-5.1 [facility] Comment on above: Performed By: #### C MP, BNP #### [facility] [address] [place] [address] Dr. Kamaljit Browning Protein [Mass/Vol] 7.1 g/dL Normal 6.4-8.2 [facility] Comment on above: Performed By: #### C MP, BNP #### [facility] [address] [place] [address] Dr. Kamaljit Browning Sodium [Moles/Vol] 142 mmol/L Normal 136-145 [facility] Comment on above: Performed By: #### C MP, BNP #### [facility] [address] [place] [address] Dr. Kamaljit Browning Urea nitrogen [Mass/Vol] 15.0 mg/dL Normal 7.0-18.0 [facility] Comment on above: Performed By: #### C MP, BNP #### [facility] [address] [place] [address] Dr. Kamaljit Browning Urea nitrogen/Creatinine [Mass ratio] 13.5 mg/mg Normal [facility] Comment on above: Performed By: #### C MP, BNP #### [facility] [address] [place] [address] Dr. Kamaljit Browning PROTIMEon 12-26-2021 INR Coag (PPP) [Relative time] 3.98 {INR} Normal [facility] Comment on above: Performed By: #### A 1C #### [facility] [address] [place] [address] Dr. Kamaljit Browning INR GUIDELINES SEE BELOW Normal [facility] Comment on above: Result Comment: NILDA RED INR: 2.0 - 3.0 CONDITIONS NOT LISTED BELOW 2.5 - 3.5 FOR PROSTHETIC HEART VALVE REPLACEMENT 2.5 - 3.5 RECURRENT THROMBOSIS Performed By: #### A 1C #### [facility] [address] [place] [address] Dr. Kamaljit Browning PT Coag (PPP) [Time] 39.3 s Critically high 9.0-11.6 [facility] Comment on above: Performed By: #### A 1C #### [facility] [address] [place] [address] Dr. Kamaljit Browning T3, TOTAL (TRIIODOTHYRONINE) on 12-26-2021 T3, TOTAL 67 ng/dL Critically low 71-180 [facility] Comment on above: Performed By: #### C BC #### [facility] [address] [place] [address] Dr. Kamaljit Browning US VASCULAR ORG CMPLon [...] LISBET BRANCH Date: 2021-12-26 09:34 Normal [facility] BNPon 12-25-2021 Natriuretic peptide B (Bld) [Mass/Vol] 106.0 pg/mL Normal <=900.0 [facility] Comment on above: Performed By: #### C MP, BNP #### [facility] [address] [place] [address] Dr. Kamaljit Browning CARDIAC GABRIELLA 3-6on 2 CK [Catalytic activity/Vol] 92 U/L Normal 39-308 [facility] Comment on above: Performed By: #### C MP, BNP #### [facility] [address] [place] [address] Dr. Kamaljit Browning CK.MB [Mass/Vol] 1.08 ng/mL Normal <=3.60 [facility] Comment on above: Performed By: #### C MP, BNP #### [facility] [address] [place] [address] Dr. Kamaljit Browning HSTROP 21.7 pg/mL Normal 4.0-76.1 [facility] Comment on above: Result Comment: CUT- OFF POINTS HAVE BEEN ESTABLISHED BASED ON THE FOURTH UNIVERSAL DEFINITIONS OF MYOCARDIAL INFARCTION. THE UPPER REFERENCE LIMIT (URL) OF TROPONIN, DEFINED THE 99TH PERCENTILE OF cTnI DISTRIBUTION IN A REFERENCE POPULATION, HAS BEEN CONFIRMED THE DECISION THRESHOLD FOR NH DIAGNOSIS. Performed By: #### C MP, BNP #### [facility] [address] [address] [address] Kamaljit Browning CK [Catalytic activity/Vol] 98 U/L Normal 39-308 [facility] Comment on above: Performed By: #### C MP, BNP #### [facility] [address] [address] [address] Kamaljit Browning CK.MB [Mass/Vol] 1.25 ng/mL Normal <=3.60 [facility] Comment on above: Performed By: #### C MP, BNP #### [facility] [address] [address] [address] Kamaljit Browning HSTROP 23.6 pg/mL Normal 4.0-76.1 [facility] Comment on above: Result Comment: CUT- OFF POINTS HAVE BEEN ESTABLISHED BASED ON THE FOURTH UNIVERSAL DEFINITIONS OF MYOCARDIAL INFARCTION. THE UPPER REFERENCE LIMIT (URL) OF TROPONIN, DEFINED THE 99TH PERCENTILE OF cTnI DISTRIBUTION IN A REFERENCE POPULATION, HAS BEEN CONFIRMED THE DECISION THRESHOLD FOR NH DIAGNOSIS. Performed By: #### C MP, BNP #### [facility] [address] [address] [address] Kamaljit Browning CARDIAC GABRIELLA ADMITon 022 CK [Catalytic activity/Vol] 105 U/L Normal 39-308 [facility] Comment on above: Performed By: #### C MP, BNP #### [facility] [address] [address] [address] Kamaljit Browning CK.MB [Mass/Vol] 0.99 ng/mL Normal <=3.60 [facility] Comment on above: Performed By: #### C MP, BNP #### [facility] [address] [address] [address] Kamaljit Browning HSTROP 24.9 pg/mL Normal 4.0-76.1 [facility] Comment on above: Result Comment: CUT- OFF POINTS HAVE BEEN ESTABLISHED BASED ON THE FOURTH UNIVERSAL DEFINITIONS OF MYOCARDIAL INFARCTION. THE UPPER REFERENCE LIMIT (URL) OF TROPONIN, DEFINED THE 99TH PERCENTILE OF cTnI DISTRIBUTION IN A REFERENCE POPULATION, HAS BEEN CONFIRMED THE DECISION THRESHOLD FOR NH DIAGNOSIS. Performed By: #### C MP, BNP #### [facility] [address] [address] [address] Kaamljit Browning SANDI 51 ng/mL Normal 16-96 [facility] Comment on above: Performed By: #### C MP, BNP #### [facility] [address] [place] [address] Dr. Kamaljit Browning CBC AUTO DIFFon 12-25-2021 BASO # 0.1 103/ul Normal 0.0-0.1 [facility] Comment on above: Performed By: #### C BC #### [facility] [address] [place] [address] Dr. Kamaljit Browning Basophils/100 WBC (Bld) 0.8 % Normal 0.2-2.0 [facility] Comment on above: Performed By: #### C BC #### [facility] [address] [place] [address] Dr. Kamaljit Browning EO # 0.1 103/ul Normal 0.0-0.7 [facility] Comment on above: Performed By: #### C BC #### [facility] [address] [place] [address] Dr. Kamaljit Browning Eosinophils/100 WBC (Bld) 1.0 % Normal 0.9-7.0 [facility] Comment on above: Performed By: #### C BC #### [facility] [address] [place] [address] Dr. Kamaljit Browning Erythrocyte distribution width (RBC) [Ratio] 12.1 % Normal 11.0-15.0 [facility] Comment on above: Performed By: #### C BC #### [facility] [address] [place] [address] Dr. Kamaljit Browning Hematocrit (Bld) [Volume fraction] 42.2 % Normal 42.0-54.0 [facility] Comment on above: Performed By: #### C BC #### [facility] [address] [place] [address] Dr. Kamaljit Browning Hemoglobin (Bld) [Mass/Vol] 14.2 g/dL Normal 14.0-18.0 [facility] Comment on above: Performed By: #### C BC #### [facility] [address] [address] [address] Kamaljit Browning IG # 0.02 10e3/ul Normal 0.00-0.03 [facility] Comment on above: Performed By: #### C BC #### [facility] [address] [address] [address] Kamaljit Browning IG % 0.3 % Normal 0.0-0.5 [facility] Comment on above: Performed By: #### C BC #### [facility] [address] [place] [address] Dr. Kamaljit Browning LYMPH # 0.9 103/ul Critically low 1.2-3.8 [facility] Comment on above: Performed By: #### C BC #### [facility] [address] [place] [address] Dr. Kamaljit Browning Lymphocytes/100 WBC (Bld) 14.7 % Critically low 20.5-60.0 [facility] Comment on above: Performed By: #### C BC #### [facility] [address] [place] [address] Dr. Kamaljit Browning MANUAL DIFF REQ NO Normal [facility] Comment on above: Performed By: #### C BC #### [facility] [address] [place] [address] Dr. Kamaljit Browning MCH (RBC) [Entitic mass] 30.4 pg Normal 25.9-34.0 [facility] Comment on above: Performed By: #### C BC #### [facility] [address] [place] [address] Dr. Kamaljit Browning MCHC (RBC) [Mass/Vol] 33.6 g/dL Normal 29.9-35.2 [facility] Comment on above: Performed By: #### C BC #### [facility] [address] [place] [address] Dr. Kamaljit Browning MCV (RBC) [Entitic vol] 90.4 fL Normal 80.0-94.0 [facility] Comment on above: Performed By: #### C BC #### [facility] [address] [address] [address] Kamaljit Browning MONO # 0.4 103/ul Normal 0.3-0.8 [facility] Comment on above: Performed By: #### C BC #### [facility] [address] [address] [address] Kamaljit Browning Monocytes/100 WBC (Bld) 6.5 % Normal 1.7-12.0 [facility] Comment on above: Performed By: #### C BC #### [facility] [address] [address] [address] Kamaljit Browning NEUT # 4.6 103/ul Normal 1.4-6.5 [facility] Comment on above: Performed By: #### C BC #### [facility] [address] [address] [address] Kamaljit Browning Neutrophils/100 WBC (Bld) 76.7 % Critically high 43.0-75.0 [facility] Comment on above: Performed By: #### C BC #### [facility] [address] [address] [address] Kamaljit Browning Platelet mean volume (Bld) [Entitic vol] 12.2 fL Normal 9.5-13.5 [facility] Comment on above: Performed By: #### C BC #### [facility] [address] [address] [address] Kamaljit Browning PLT 120 103/ul Critically low 150-450 [facility] Comment on above: Performed By: #### C BC #### [facility] [address] [address] [address] Kamaljit Browning RBC 4.67 106/ul Critically low 4.70-6.10 [facility] Comment on above: Performed By: #### C BC #### [facility] [address] [address] [address] Kamaljit Browning WBC 6.0 103/ul Normal 4.0-11.0 [facility] Comment on above: Performed By: #### C BC #### [facility] [address] [place], [place] [address] Dr. Kamaljit Browning CULTURE URINEon 12-25-2021 CULTURE URINE Culture Observations : NO GROWTH. Normal [facility] Comment on above: Performed By: #### C MP, BNP #### [facility] [address] [place], [place] [address] Dr. Kamaljit Browning Cov[facility]28 SARS-CoV-2 (COVID-19) RNA SOURAV+probe Ql (Unsp spec) Not detected Normal NOT DETECTED [facility] Comment on above: Result Comment: When [...] for this test is supported by the [employer]ant of Health and Human Service's declaration that [...] used). Performed By: #### C BC #### [facility] [id number] Kamaljit Browning ECHOCARDIO M/2D COMPLETEon 0 12-25-2021 ECHOCARDIO M/2D COMPLETE Patient: MARTIN WEST Exam Date: 12/25/2021 : 1950 Gender:M Ordering : DR PETRA WOOTEN . Admission #: [id number] Family : DR ALAYNA LANGLEY M.D. Order #: [id number] CLICK HERE TO VIEW EXAM ECHOCARDIOGRAM REPORT [...] Area(A4C): 22.50 cm2 Left Atrium Systolic Volume(A2C): 80120 mm3 Left Atrium Systolic Volume(A4C): 48470 mm3 Mitral Valve MV E to A Ratio: 1 Deceleration [place]: 5860 mm/s2 Mitral Valve A-Wave Peak Velocity: [...] Reddy M.D. on 12/25/2021 at 16:48 Normal [facility] MAGNESIUMon 12-25-2021 Magnesium [Mass/Vol] 2.2 mg/dL Normal 1.8-2.4 [facility] Comment on above: Performed By: #### C MP, BNP #### [facility] [address] [place] [address] Dr. Kamaljit Browning PHOSPHORUSon 12-25-2021 Phosphate [Mass/Vol] 3.2 mg/dL Normal 2.6-4.7 [facility] Comment on above: Performed By: #### C MP, BNP #### [facility] [address] [place] [address] Dr. Kamaljit Browning PROF 14(COMP METB)on 022 Albumin [Mass/Vol] 4.4 g/dL Normal 3.4-5.0 [facility] Comment on above: Performed By: #### C MP, BNP #### [facility] [address] [place] [address] Dr. Kamaljit Browning Albumin/Globulin [Mass ratio] 1.2 {ratio} Normal [facility] Comment on above: Performed By: #### C MP, BNP #### [facility] [address] [place] [address] Dr. Kamaljit Browning ALP [Catalytic activity/Vol] 95 U/L Normal 46-116 [facility] Comment on above: Performed By: #### C MP, BNP #### [facility] [address] [place] [address] Dr. Kamaljit Browning ALT [Catalytic activity/Vol] 30 U/L Normal 16-63 [facility] Comment on above: Performed By: #### C MP, BNP #### [facility] [address] [place] [address] Dr. Kamaljit Browning Anion gap [Moles/Vol] 12.0 mmol/L Normal [facility] Comment on above: Performed By: #### C MP, BNP #### [facility] [address] [place] [address] Dr. Kamaljit Browning AST [Catalytic activity/Vol] 27 U/L Normal 15-37 [facility] Comment on above: Performed By: #### C MP, BNP #### [facility] [address] [place] [address] Dr. Kamaljit Browning Bilirubin [Mass/Vol] 0.8 mg/dL Normal 0.2-1.0 [facility] [facility] Comment on above: Performed By: #### C MP, BNP #### [facility] [address] [place] [address] Dr. Kamaljit Browning Calcium [Mass/Vol] 9.1 mg/dL Normal 8.5-10.1 [facility] Comment on above: Performed By: #### C MP, BNP #### [facility] [address] [place] [address] Dr. Kamaljit Browning Chloride [Moles/Vol] 107 mmol/L Normal 98-107 [facility] Comment on above: Performed By: #### C MP, BNP #### [facility] [address] [place] [address] Dr. Kamaljit Browning CO2 [Moles/Vol] 27.6 mmol/L Normal 21.0-32.0 [facility] Comment on above: Performed By: #### C MP, BNP #### [facility] [address] [place] [address] Dr. Kamaljit Browning Creatinine [Mass/Vol] 1.01 mg/dL Normal 0.70-1.30 [facility] Comment on above: Performed By: #### C MP, BNP #### [facility] [address] [address] [address] Kamaljit Browning EGFR-AF CAYMAN ISLANDER >60 Normal >=60 [facility] Comment on above: Performed By: #### C MP, BNP #### [facility] [address] [place] [address] Dr. Kamaljit Browning EGFR-NON AF CAY[place] ISLANDER >60 Normal >=60 [facility] Comment on above: Performed By: #### C MP, BNP #### [facility] [address] [place] [address] Dr. Kamaljit Browning Globulin (S) [Mass/Vol] 3.6 g/dL Normal [facility] Comment on above: Performed By: #### C MP, BNP #### [facility] [address] [place] [address] Dr. Kamaljit Browning Glucose [Mass/Vol] 123 mg/dL Critically high 74-106 [facility] Comment on above: Performed By: #### C MP, BNP #### [facility] [address] [place] [address] Dr. Kamaljit Browning Potassium [Moles/Vol] 4.6 mmol/L Normal 3.5-5.1 [facility] Comment on above: Performed By: #### C MP, BNP #### [facility] [address] [place] [address] Dr. Kamaljit Browning Protein [Mass/Vol] 8.0 g/dL Normal 6.4-8.2 [facility] Comment on above: Performed By: #### C MP, BNP #### [facility] [address] [place] [address] Dr. Kamaljit Browning Sodium [Moles/Vol] 142 mmol/L Normal 136-145 [facility] Comment on above: Performed By: #### C MP, BNP #### [facility] [address] [place] [address] Dr. Kamaljit Browning Urea nitrogen [Mass/Vol] 12.0 mg/dL Normal 7.0-18.0 [facility] Comment on above: Performed By: #### C MP, BNP #### [facility] [address] [place] [address] Dr. Kamaljit Browning Urea nitrogen/Creatinine [Mass ratio] 11.9 mg/mg Normal [facility] Comment on above: Performed By: #### C MP, BNP #### [facility] [address] [place] [address] Dr. Kamaljit Browning PROTIMEon 12-25-2021 INR Coag (PPP) [Relative time] 3.75 {INR} Normal [facility] Comment on above: Performed By: #### P T, PTT #### [facility] [address] [place] [address] Dr. Kamaljit Browning INR GUIDELINES SEE BELOW Normal [facility] Comment on above: Result Comment: NILDA RED INR: 2.0 - 3.0 CONDITIONS NOT LISTED BELOW 2.5 - 3.5 FOR PROSTHETIC HEART VALVE REPLACEMENT 2.5 - 3.5 RECURRENT THROMBOSIS Performed By: #### P T, PTT #### [facility] [address] [place] [address] Dr. Kamaljit Brwoning PT Coag (PPP) [Time] 37.1 s Critically high 9.0-11.6 [facility] Comment on above: Performed By: #### P T, PTT #### [facility] [address] [place] [address] Dr. Kamaljit Browning PTTon 12-25-2021 aPTT Coag (Bld) [Time] 55.4 s Critically high 22.3-36.2 [facility] Comment on above: Performed By: #### P T, PTT #### [facility] [address] [place] [address] Dr. Kamaljit Browning T4on 12-25-2021 T4 [Mass/Vol] 8.90 ug/dL Normal 4.50-12.10 [facility] Comment on above: Performed By: #### C MP, BNP #### [facility] [address] [place] [address] Dr. Kamaljit Browning TSHon 12-25-2021 TSH 0.778 uIU/mL Normal 0.358-3.740 [facility] Comment on above: Performed By: #### C MP, BNP #### [facility] [address] [place] [address] Dr. Kamaljit Browning UA RANDOM W/MICROSCOPICon BACTERIA NONE SEEN Normal NONE SEEN [facility] Comment on above: Performed By: #### A 1C #### [facility] [address] [place] [address] Dr. Kamaljit Browning Bilirubin Ql (U) Negative Normal NEGATIVE [facility] Comment on above: Performed By: #### A 1C #### [facility] [address] [place] [address] Dr. Kamaljit Browning CAST NONE SEEN Normal NONE SEEN [facility] Comment on above: Performed By: #### A 1C #### [facility] [address] [place] [address] Dr. Kamaljit Browning Clarity (U) CLEAR Normal CLEAR [facility] Comment on above: Performed By: #### A 1C #### [facility] [address] [place] [address] Dr. Kamaljit Browning Color (U) LT. YELLOW Normal YELLOW [facility] Comment on above: Performed By: #### A 1C #### [facility] [address] [place] [address] Dr. Kamaljit Browning Crystals LM Nom (Urine sed) NONE SEEN Normal NONE SEEN [facility] Comment on above: Performed By: #### A 1C #### [facility] [address] [place] [address] Dr. Kamaljit Browning Epithelial cells LM Ql (Urine sed) NONE SEEN Normal NONE SEEN /RARE [facility] Comment on above: Performed By: #### A 1C #### [facility] [address] [place] [address] Dr. Kamaljit Browning Glucose Ql (U) Negative Normal NEGATIVE [facility] Comment on above: Performed By: #### A 1C #### [facility] [address] [place] [address] Dr. Kamaljit Browning Hemoglobin Ql (U) Negative Normal NEGATIVE [facility] Comment on above: Performed By: #### A 1C #### [facility] [address] [place] [address] Dr. Kamaljit Browning Ketones Ql (U) Negative Normal NEGATIVE [facility] Comment on above: Performed By: #### A 1C #### [facility] [address] [place] [address] Dr. Kamaljit Browning LEUKOCYTES Negative Normal NEGATIVE [facility] Comment on above: Performed By: #### A 1C #### [facility] [address] [place] [address] Dr. Kamaljit Browning MUCOUS NONE SEEN Normal NONE SEEN [facility] Comment on above: Performed By: #### A 1C #### [facility] [address] [place] [address] Dr. Kamaljit Browning Nitrite Ql (U) Negative Normal NEGATIVE [facility] Comment on above: Performed By: #### A 1C #### [facility] [address] [place] [address] Dr. Kamaljit Browning pH (U) 6.0 [pH] Normal 5-9 [facility] Comment on above: Performed By: #### A 1C #### [facility] [address] [place] [address] Dr. Kamaljit Browning RBC NONE SEEN Abnormal 0-2 [facility] Comment on above: Performed By: #### A 1C #### [facility] [address] [place] [address] Dr. Kamaljit Browning SPEC GRAVITY 1.010 Normal 1.005-<=1.025 [facility] Comment on above: Performed By: #### A 1C #### [facility] [address] [place] [address] Dr. Kamaljit Browning UA PROTEIN Negative Normal NEGATIVE/ TRACE [facility] Comment on above: Performed By: #### A 1C #### [facility] [address] [place] [address] Dr. Kamaljit Browning Urobilinogen Qn (U) 0.2 {Mari'U}/dL Normal 0.2 - 1. 0 [facility] Comment on above: Performed By: #### A 1C #### [facility] [address] [place] [address] Dr. Kamaljit Browning WBC NONE SEEN Normal NONE SEEN [facility] Comment on above: Performed By: #### A 1C #### [facility] [address] [place] [address] Dr. Kamaljit Browning CBC AUTO DIFFon 12-18-2021 BASO # 0.0 103/ul Normal 0.0-0.1 [facility] Comment on above: Performed By: #### C BC #### [facility] [address] [place] [address] Dr. Kamaljit Browning Basophils/100 WBC (Bld) 0.6 % Normal 0.2-2.0 [facility] Comment on above: Performed By: #### C BC #### [facility] [address] [place] [address] Dr. Kamaljit Browning EO # 0.1 103/ul Normal 0.0-0.7 [facility] Comment on above: Performed By: #### C BC #### [facility] [address] [place] [address] Dr. Kamaljit Browning Eosinophils/100 WBC (Bld) 1.1 % Normal 0.9-7.0 [facility] Comment on above: Performed By: #### C BC #### [facility] [address] [place] [address] Dr. Kamaljit Browning Erythrocyte distribution width (RBC) [Ratio] 12.5 % Normal 11.0-15.0 [facility] Comment on above: Performed By: #### C BC #### [facility] [address] [place] [address] Dr. Kamaljit Browning Hematocrit (Bld) [Volume fraction] 40.5 % Critically low 42.0-54.0 [facility] Comment on above: Performed By: #### C BC #### [facility] [address] [place] [address] Dr. Kamaljit Browning Hemoglobin (Bld) [Mass/Vol] 13.5 g/dL Critically low 14.0-18.0 [facility] Comment on above: Performed By: #### C BC #### [facility] [address] [place] [address] Dr. Kamaljit Browning IG # 0.02 10e3/ul Normal 0.00-0.03 [facility] Comment on above: Performed By: #### C BC #### [facility] [address] [place] [address] Dr. Kamaljit Browning IG % 0.3 % Normal 0.0-0.5 [facility] Comment on above: Performed By: #### C BC #### [facility] [address] [place] [address] Dr. Kamaljit Browning LYMPH # 1.0 103/ul Critically low 1.2-3.8 [facility] Comment on above: Performed By: #### C BC #### [facility] [address] [place] [address] Dr. Kamaljit Browning Lymphocytes/100 WBC (Bld) 14.8 % Critically low 20.5-60.0 [facility] Comment on above: Performed By: #### C BC #### [facility] [address] [place] [address] Dr. Kamaljit Browning MANUAL DIFF REQ NO Normal [facility] Comment on above: Performed By: #### C BC #### [facility] [address] [place] [address] Dr. Kamaljit Browning MCH (RBC) [Entitic mass] 30.3 pg Normal 25.9-34.0 [facility] Comment on above: Performed By: #### C BC #### [facility] [address] [place] [address] Dr. Kamaljit Browning MCHC (RBC) [Mass/Vol] 33.3 g/dL Normal 29.9-35.2 [facility] Comment on above: Performed By: #### C BC #### [facility] [id number] Kamaljit Browning MCV (RBC) [Entitic vol] 91.0 fL Normal 80.0-94.0 [facility] Comment on above: Performed By: #### C BC #### [facility] [id number] Kamaljit Browning MONO # 0.6 103/ul Normal 0.3-0.8 [facility] Comment on above: Performed By: #### C BC #### [facility] [address] [address] [address] Kamaljit Browning Monocytes/100 WBC (Bld) 9.0 % Normal 1.7-12.0 [facility] Comment on above: Performed By: #### C BC #### [facility] [address] [address] [address] Kamaljit Browning NEUT # 5.2 103/ul Normal 1.4-6.5 [facility] Comment on above: Performed By: #### C BC #### [facility] [address] [address] [address] Kamaljit Browning Neutrophils/100 WBC (Bld) 74.2 % Normal 43.0-75.0 [facility] Comment on above: Performed By: #### C BC #### [facility] [address] [address] [address] Kamaljit Browning Platelet mean volume (Bld) [Entitic vol] 12.7 fL Normal 9.5-13.5 [facility] Comment on above: Performed By: #### C BC #### [facility] [address] [address] [address] Kamaljit Browning PLT 114 103/ul Critically low 150-450 [facility] Comment on above: Performed By: #### C BC #### [facility] [id number] Kamaljit Browning RBC 4.45 106/ul Critically low 4.70-6.10 [facility] Comment on above: Performed By: #### C BC #### [facility] [address] [address] [address] Kamaljit Browning WBC 7.0 103/ul Normal 4.0-11.0 [facility] Comment on above: Performed By: #### C BC #### [facility] [address] [place] [address] Dr. Kamaljit Browning MAGNESIUMon 12-18-2021 Magnesium [Mass/Vol] 2.1 mg/dL Normal 1.8-2.4 [facility] Comment on above: Performed By: #### C BC #### [facility] [address] [place] [address] Dr. Kamaljit Browning PROF CHEM 8 (BAS METB)on Anion gap [Moles/Vol] 13.2 mmol/L Normal [facility] Comment on above: Performed By: #### C BC #### [facility] [address] [place] [address] Dr. Kamaljit Browning Calcium [Mass/Vol] 8.7 mg/dL Normal 8.5-10.1 [facility] Comment on above: Performed By: #### C BC #### [facility] [address] [place] [address] Dr. Kamaljit Browning Chloride [Moles/Vol] 108 mmol/L Critically high 98-107 [facility] Comment on above: Performed By: #### C BC #### [facility] [address] [place] [address] Dr. Kamaljit Browning CO2 [Moles/Vol] 25.7 mmol/L Normal 21.0-32.0 [facility] Comment on above: Performed By: #### C BC #### [facility] [address] [place] [address] Dr. Kamaljit Browning Creatinine [Mass/Vol] 1.10 mg/dL Normal 0.70-1.30 [facility] Comment on above: Performed By: #### C BC #### [facility] [address] [place] [address] Dr. Kamaljit Browning EGFR-AF [place] ISLANDER >60 Normal >=60 [facility] Comment on above: Performed By: #### C BC #### [facility] [address] [address] [address] Kamaljit Browning EGFR-NON AF [place] ISLANDER >60 Normal >=60 [facility] Comment on above: Performed By: #### C BC #### [facility] [address] [address] [address] Kamaljit Browning Glucose [Mass/Vol] 118 mg/dL Critically high 74-[address] [facility] Comment on above: Performed By: #### C BC #### [facility] [address] [address] [address] Kamaljit Browning Potassium [Moles/Vol] 3.9 mmol/L Normal 3.5-5.1 [facility] Comment on above: Performed By: #### C BC #### [facility] [address] [address] [address] Kamaljit Browning Sodium [Moles/Vol] 143 mmol/L Normal 136-145 [facility] Comment on above: Performed By: #### C BC #### [facility] [address] [address] [address] Kamaljit Browning Urea nitrogen [Mass/Vol] 12.0 mg/dL Normal 7.0-18.0 [facility] Comment on above: Performed By: #### C BC #### [facility] [address] [address] [address] Kamaljit Browning Urea nitrogen/Creatinine [Mass ratio] 10.9 mg/mg Normal [facility] Comment on above: Performed By: #### C BC #### [facility] [address] [address] [address] Kamaljit Browning PROTIMEon 12-18-2021 INR Coag (PPP) [Relative time] 2.47 {INR} Normal [facility] Comment on above: Performed By: #### C MP, BNP #### [facility] [address] [address] [address] Kamaljit Browning INR GUIDELINES SEE BELOW Normal [facility] Comment on above: Result Comment: NILDA RED INR: 2.0 - 3.0 CONDITIONS NOT LISTED BELOW 2.5 - 3.5 FOR PROSTHETIC HEART VALVE REPLACEMENT 2.5 - 3.5 RECURRENT THROMBOSIS Performed By: #### C MP, BNP #### [facility] [address] [place] [address] Dr. Kamaljit Browning PT Coag (PPP) [Time] 25.1 s Critically high 9.0-11.6 [facility] Comment on above: Performed By: #### C MP, BNP #### [facility] [address] [place] [address] Dr. Kamaljit Browning TSHon 12-18-2021 TSH 1.850 uIU/mL Normal 0.358-3.740 [facility] Comment on above: Performed By: #### C BC #### [facility] [address] [place] [address] Dr. Kamaljit Browning BNPon 12-17-2021 Natriuretic peptide B (Bld) [Mass/Vol] 50.0 pg/mL Normal <=900.0 [facility] Comment on above: Performed By: #### A 1C #### [facility] [address] [place] [address] Dr. Kamaljit Browning CBC AUTO DIFFon 12-17-2021 BASO # 0.1 103/ul Normal 0.0-0.1 [facility] Comment on above: Performed By: #### C BC #### [facility] [address] [place] [address] Dr. Kamaljit Browning Basophils/100 WBC (Bld) 1.0 % Normal 0.2-2.0 [facility] Comment on above: Performed By: #### C BC #### [facility] [address] [place] [address] Dr. Kamaljit Browning EO # 0.1 103/ul Normal 0.0-0.7 [facility] Comment on above: Performed By: #### C BC #### [facility] [address] [place] [address] Dr. Kamaljit Browning Eosinophils/100 WBC (Bld) 1.2 % Normal 0.9-7.0 [facility] Comment on above: Performed By: #### C BC #### [facility] [address] [place] [address] Dr. Kamaljit Browning Erythrocyte distribution width (RBC) [Ratio] 12.4 % Normal 11.0-15.0 [facility] Comment on above: Performed By: #### C BC #### [facility] [address] [place] [address] Dr. Kamaljit Browning Hematocrit (Bld) [Volume fraction] 43.8 % Normal 42.0-54.0 [facility] Comment on above: Performed By: #### C BC #### [facility] [address] [place] [address] Dr. Kamaljit Browning Hemoglobin (Bld) [Mass/Vol] 14.4 g/dL Normal 14.0-18.0 [facility] Comment on above: Performed By: #### C BC #### [facility] [address] [place] [address] Dr. Kamaljit Browning IG # 0.02 10e3/ul Normal 0.00-0.03 [facility] Comment on above: Performed By: #### C BC #### [facility] [address] [place] [address] Dr. Kamaljit Browning IG % 0.3 % Normal 0.0-0.5 [facility] Comment on above: Performed By: #### C BC #### [facility] [address] [place] [address] Dr. Kamaljit Browning LYMPH # 1.1 103/ul Critically low 1.2-3.8 [facility] Comment on above: Performed By: #### C BC #### [facility] [address] [place] [address] Dr. Kamaljit Browning Lymphocytes/100 WBC (Bld) 18.5 % Critically low 20.5-60.0 [facility] Comment on above: Performed By: #### C BC #### [facility] [address] [place] [address] Dr. Kamaljit Browning MANUAL DIFF REQ NO Normal [facility] Comment on above: Performed By: #### C BC #### [facility] [address] [place] [address] Dr. Kamaljit Browning MCH (RBC) [Entitic mass] 30.2 pg Normal 25.9-34.0 [facility] Comment on above: Performed By: #### C BC #### [facility] [address] [place] [address] Dr. Kamaljit Browning MCHC (RBC) [Mass/Vol] 32.9 g/dL Normal 29.9-35.2 [facility] Comment on above: Performed By: #### C BC #### [facility] [address] [place] [address] Dr. Kamaljit Browning MCV (RBC) [Entitic vol] 91.8 fL Normal 80.0-94.0 [facility] Comment on above: Performed By: #### C BC #### [facility] [address] [place] [address] Dr. Kamaljit Browning MONO # 0.4 103/ul Normal 0.3-0.8 [facility] Comment on above: Performed By: #### C BC #### [facility] [address] [place] [address] Dr. Kamaljit Browning Monocytes/100 WBC (Bld) 7.4 % Normal 1.7-12.0 [facility] Comment on above: Performed By: #### C BC #### [facility] [address] [place] [address] Dr. Kamaljit Browning NEUT # 4.1 103/ul Normal 1.4-6.5 [facility] Comment on above: Performed By: #### C BC #### [facility] [address] [place] [address] Dr. Kamaljit Browning Neutrophils/100 WBC (Bld) 71.6 % Normal 43.0-75.0 [facility] Comment on above: Performed By: #### C BC #### [facility] [address] [place] [address] Dr. Kamaljit Browning Platelet mean volume (Bld) [Entitic vol] 12.4 fL Normal 9.5-13.5 [facility] Comment on above: Performed By: #### C BC #### [facility] [address] [place] [address] Dr. Kamaljit Browning PLT 111 103/ul Critically low 150-450 [facility] Comment on above: Performed By: #### C BC #### [facility] [address] [place] [address] Dr. Kamaljit Browning RBC 4.77 106/ul Normal 4.70-6.10 [facility] Comment on above: Performed By: #### C BC #### [facility] [address] [address] [address] Kamaljit Browning WBC 5.8 103/ul Normal 4.0-11.0 [facility] Comment on above: Performed By: #### C BC #### [facility] [address] [address] [address] Kamaljit Browning Covid-19 PCR ([facility])on 11-28 SARS-CoV-2 (COVID-19) RNA SOURAV+probe Ql (Unsp spec) Not detected Normal NOT DETECTED [facility] Comment on above: Result Comment: When [...] for this test is supported by the [employer] of Health and Human Service's declaration that [...] Performed By: #### C MP, BNP #### [facility] [address] [place] [address] Dr. Kamaljit Browning PROF 14(COMP METB)on 022 Albumin [Mass/Vol] 4.3 g/dL Normal 3.4-5.0 [facility] Comment on above: Performed By: #### A 1C #### [facility] [address] [place] [address] Dr. Kamaljit Browning Albumin/Globulin [Mass ratio] 1.2 {ratio} Normal [facility] Comment on above: Performed By: #### A 1C #### [facility] [address] [place] [address] Dr. Kamaljit Browning ALP [Catalytic activity/Vol] 115 U/L Normal 46-116 [facility] Comment on above: Performed By: #### A 1C #### [facility] [address] [place] [address] Dr. Kamaljit Browning ALT [Catalytic activity/Vol] 35 U/L Normal 16-63 [facility] Comment on above: Performed By: #### A 1C #### [facility] [address] [place] [address] Dr. Kamaljit Browning Anion gap [Moles/Vol] 15.0 mmol/L Normal [facility] Comment on above: Performed By: #### A 1C #### [facility] [address] [place] [address] Dr. Kamaljit Browning AST [Catalytic activity/Vol] 26 U/L Normal 15-37 [facility] Comment on above: Performed By: #### A 1C #### [facility] [address] [place] [address] Dr. Kamaljit Browning Bilirubin [Mass/Vol] 0.5 mg/dL Normal 0.2-1.0 [facility] Comment on above: Performed By: #### A 1C #### [facility] [address] [place] [address] Dr. Kamaljit Browning Calcium [Mass/Vol] 8.6 mg/dL Normal 8.5-10.1 [facility] Comment on above: Performed By: #### A 1C #### [facility] [address] [place] [address] Dr. Kamaljit Browning Chloride [Moles/Vol] 106 mmol/L Normal 98-107 [facility] Comment on above: Performed By: #### A 1C #### [facility] [address] [place] [address] Dr. Kamaljit Browning CO2 [Moles/Vol] 24.0 mmol/L Normal 21.0-32.0 [facility] Comment on above: Performed By: #### A 1C #### [facility] [address] [address] [address] Kamaljit Browning Creatinine [Mass/Vol] 1.02 mg/dL Normal 0.70-1.30 [facility] Comment on above: Performed By: #### A 1C #### [facility] [address] [address] [address] Kamaljit Browning EGFR-AF [place]ER >60 Normal >=60 [facility] Comment on above: Performed By: #### A 1C #### [facility] [address] [place] [address] Dr. Kamaljit Browning EGFR-NON AF [place] >60 Normal >=60 [facility] Comment on above: Performed By: #### A 1C #### [facility] [address] [address] [address] Kamaljit Browning Globulin (S) [Mass/Vol] 3.5 g/dL Normal [facility] Comment on above: Performed By: #### A 1C #### [facility] [address] [address] [address] Kamaljit Browning Glucose [Mass/Vol] 138 mg/dL Critically high 74-106 [facility] Comment on above: Performed By: #### A 1C #### [facility] [address] [place] [address] Dr. Kamaljit Browning Potassium [Moles/Vol] 4.0 mmol/L Normal 3.5-5.1 [facility] Comment on above: Performed By: #### A 1C #### [facility] [address] [address] [address] Kamaljit Browning Protein [Mass/Vol] 7.8 g/dL Normal 6.4-8.2 [facility] Comment on above: Performed By: #### A 1C #### [facility] [address] [place] [address] Dr. Kamaljit Browning Sodium [Moles/Vol] 141 mmol/L Normal 136-145 [facility] Comment on above: Performed By: #### A 1C #### [facility] [address] [place], [place] [address] Dr. Kamaljit Browning Urea nitrogen [Mass/Vol] 13.0 mg/dL Normal 7.0-18.0 [facility] Comment on above: Performed By: #### A 1C #### [facility] [address] [place], [place] [address] Dr. Kamaljit Browning Urea nitrogen/Creatinine [Mass ratio] 12.7 mg/mg Normal [facility] Comment on above: Performed By: #### A 1C #### [facility] [address] [place], [place] [address] Dr. Kamaljit Browning TROPONIN, HIGH SENSITIVITYon 12-17-2021 HSTROP 11.1 pg/mL Normal 4.0-76.1 [facility] Comment on above: Result Comment: CUT- OFF POINTS HAVE BEEN ESTABLISHED BASED ON THE FOURTH UNIVERSAL DEFINITIONS OF MYOCARDIAL INFARCTION. THE UPPER REFERENCE LIMIT (URL) OF TROPONIN, DEFINED THE 99TH PERCENTILE OF cTnI DISTRIBUTION IN A REFERENCE POPULATION, HAS BEEN CONFIRMED THE DECISION THRESHOLD FOR [place] DIAGNOSIS. Performed By: #### A 1C #### [facility] [address] [place], [place] [address] Dr. Kamaljit Browning Vital Signs Date Time Vital Sign Value Performing Clinician Perez ortiz 03-18-2023 14:09-0400 Blood Pressure Location Leo BEBETO [facility] 03-18-2023 14:09-0400 Diastolic blood pressure 86 mm[Hg] Leo TATE [facility] 03-18-2023 14:09-0400 Heart rate 70 /min Leo ADAMSL [facility] 03-18-2023 14:09-0400 Respiratory rate 16 /min Leo TATE [facility] 03-18-2023 14:09-0400 Systolic blood pressure 130 mm[Hg] Leo TATE [facility] Encounters Encounter Date Encounter Type Care Provider Facility Start: 03-01-2024 End: 03-01-[address] [facility] Start: 02-01-2024 End: 02-01-[address] [facility] Start: 04-08-2023 End: 04-09-2023 ambulatory Leo Melgar BRYANHawa Facility:[id number] Start: 03-18-2023 End: 03-19-2023 ambulatory Leo Melgar BRYANL Facility:[facility] Start: 03-18-2023 End: 03-18-2023 Patient encounter procedure Leo Melgar BEBETO [facility] Start: 03-18-2023 End: 03-18-[address] [facility] Start: 03-06-2023 ambulatory Leo TATE Facility:[facility] Start: 03-05-2023 ambulatory Leo TATE Facility:[facility] Start: 11-14-2022 End: 11-15-[address] PETRA WOOTEN . Facility:[facility] Start: 10-27-2022 End: 11-26-[address] PTERA WOOTEN . Facility:[facility] Start: 09-29-2022 End: 10-24-2022 [...] ROBERTSSowmya Facility:[facility] Start: 01-27-2022 End: 02-26-2022 ambulatory DIEZSHIRLENE ROBERTSSowmya Facility:[facility] Start: 12-27-2021 End: 01-24-[address] PETRA WOOTEN . Facility:[facility] Start: 12-25-2021 End: 12-26-[address] PETRA WOOTEN . Facility:[facility] Start: 12-17-2021 End: 12-18-2021 Evaluation and management of inpatient DR PETRA WOOTEN . Facility: Procedures Date Procedure Procedure Detail Performing Clinician Start: 11-14-[address] LIZZIE WOOTEN . Comment on above: Performed By: #### C MP, BNP #### [facility] [address] [place] [address] Dr. 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 Immunizations Immunization Date Immunization Notes Care Provider Fa cili 04-03-2022 SARS-CoV-2 (COVID-19 ) [id number] Leo TATE [facility] 12-02-2021 SARS-CoV-2 mRNA (dwskvuasrpa-ykpi-qxhgk se) vaccine Leo TATE [facility] 03-23-2021 SARS-CoV-2 (COVID-19 ) mRNA BNT-162b2 vax Leo TATE [facility] Comment on above: Result Comment: 2022: [id number] 08-30-2020 SARS-CoV-2 (COVID-19 ) mRNA BNT-162b2 vax [facility]ATE [facility] Comment on above: Result Comment: 2022: [email or web address] 08-09-2020 SARS-CoV-2 (COVID-19 ) mRNA BNT-162b2 sejal TATE [facility] [place] Comment on above: Result Comment: 2022: [id number] Payers Date Payer Category Payer Unknown [id number] 1957 Medicare [id number] 1957 Unknown [id number] 1959 Unknown [id number] 1950 Unknown [id number] 2.16.84 0.1.633448.3.579.2.593 1952 Unknown [id number] 2.16.84 0.1.060716.3.579.2.593 1952 Unknown [id number] 2.16.84 0.1.022127.3.579.2.593 1952 Unknown [id number] 2.16.84 0.1.106157.3.579.2.593 1952 Unknown [id number] 2.16.84 0.1.859433.3.579.2.593 1952 Unknown [id number] 2.16.84 0.1.049921.3.579.2.593 1952 Unknown [id number] 2.16.84 0.1.556164.3.579.2.593 1952 Unknown [id number] 2.16.84 0.1.059204.3.579.2.593 1952 Unknown [id number] 2.16.84 0.1.691125.3.579.2.593 1952 Unknown [id number] 2.16.84 0.1.864724.3.579.2.593 1952 Unknown [id number] 2.16.84 0.1.275626.3.579.2.593 1952 Unknown [id number] 2.16.84 0.1.054671.3.579.2.593 1952 Unknown [id number] 2.16.84 0.1.352938.3.579.2.593 1952 Unknown [id number] 2.16.84 0.1.172645.3.579.2.593 1952 Unknown [id number] 2.16.84 0.1.341245.3.579.2.593 1952 Unknown [id number] 2.16.84 0.1.071128.3.579.2.593 1952 Unknown [id number] 2.16.84 0.1.967553.3.579.2.593 1952 Unknown [id number] 2.16.8 40.1.316334.3.579.2.727 1952 Unknown [id number] 2.16.8 40.1.884020.3.579.2.727 1952 Unknown [id number] 2.16.8 40.1.913252.3.579.2.727 Social History Date Type Detail Facility Start: 03-18-2023 Tobacco smoking status Ex-smoker (fi nding) [facility] [place] Tobacco smoking status Never [facility] [place] Sex Assigned At Male [facility] Functional Status Date Assessment Result Facility 03-18-2023 Functional Status N/A [facility] [place] [facility] Progress note 03-01-2024 Note Date & Type Note Facility 03-01-2024 Note [facility] Cardiology Clinic Note Chief Complaint: Patient here for follow up stress test, carotid duplex, and echo. At last visit, simvastatin was switched to rosuvastatin. Still denies chest pain, SOB, lightheadedness/syncope, palpitations, and bleeding on warfarin. HPI: Martin West is a 74 y.o. male Cardiology ROS: Review of Systems All other [...] Take 1 tablet (25 mg) by mouth every other day., Disp: 45 tablet, Rfl: 3 citalopram (CeleXA) 20 mg [...] mouth in the morning., Disp: , Rfl: rosuvastatin (Crestor) 40 mg tablet, Take 1 tablet (40 mg) by mouth in the morning., Disp: 90 tablet, Rfl: 3 simvastatin (Zocor) 40 mg tablet, Take 40 mg by mouth in the morning., Disp: , Rfl: warfarin (Coumadin) 4 mg tablet, Take 4 mg by mouth., Disp: , Rfl: Last Recorded Vitals BP 128/60 (BP Location: Left arm, Patient Position: Sitting) Pulse 57 Ht 1.676 m (5' 6 ) Wt 99.3 kg (219 lb) SpO2 97% BMI 35.35 kg/m??? Physical Examination: GENERAL: alert and oriented [...] total cholesterol 165, LDL 96.4, HDL 41 Echocardiogram 02/17/2024 Global left ventricular systolic function is normal; visually estimated ejection fraction is 60 to 65% Normal right ventricular size and systolic function Diastolic function is indeterminate Mildly elevated right ventricular systolic pressure; RVSP 35 mmHg A mechanical aortic valve is seen with elevated Doppler flow; peak velocity 3.58 m/s, DVI 0.32. Trivial aortic valve regurgitation Mild pulmonic regurgitation Stress test 02/17/2024 No acute or reversible ischemia Inferior fixed defect likely diaphragm attenuation Normal wall motion, left ventricular volume, and ejection fraction Carotid Dopplers 02/17/2024: Conclusion: 1. L (more content not included)... [facility] Progress note 02-01-2024 Note Date & Type Note Facility 02-01-2024 Note car [facility] Progress note 02-01-2024 Note Date & Type Note Facility 02-01-2024 Note [facility] Cardiology Clinic Note Chief Complaint: Patient [...] - MILD I25.10: Atherosclerotic heart disease of [place] coronary artery without angina pectoris 3. Essential hypertension - Established (stable) I10: Essential (primary) hypertensio (more content not included)... [facility] Clinical Note 04-01-2023 Note Date & Type Note Facility 04-01-2023 Note [id number] #1.00CD:127 Kiana from [place] [facility] med management called stating he is ok to hold coumadin 4 days before procedure and will not need bridged, she will call pt tp inform him [facility] Comment on above: Result Comment: [...] held; Unasyn preop for SBE prophylaxis. 2. 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 [facility] Comment on above: Result Comment: Elec tronically Signed By: BEBETO RODRIGUES, Leo Monae\Date and Time Signed: 03/18/23 14:47 EDT Progress note 03-18-2023 Note Date & Type Note Facility 03-18-2023 Note [facility] Cardiology Clinic Note Chief Complaint: Patient [...] - MILD I25.10: Atherosclerotic heart disease of [place] coronary artery without angina pectoris 3. Essential [...] problems arise Alayna Langley MD, MPH, FACC, [facility], [facility] Interventional Cardiology Pager Email: [email or web address] Evaluation + Plan note Note Date & Type Note Facility Evaluation + Plan note No data available for this section [facility] [place] [facility] Discharge instructions Note Date & Type Note Facility Hospital Discharge instructions No data available for this section [facility] Progress note Note Date & Type Note [...] content) DATE CREATED AUTHOR [facility]/05/2022 [facility] DATE CREATED AUTHOR AUTHOR'S ORGANIZ ATION 04/28/2023 [facility] DATE CREATED AUTHOR AUTHOR'S ORGANIZ ATION 03/01/2024 [facility] Patient Care team informatio n (unrecognized section and content) Personnel Name: Petra Wooten MD Address: Address: [address] [place] [address] FOR RECORDS PERTAINING TO PATIENTS WHO ARE [...] BE BASED ON THE PRIMARY CLINICAL RECORDS. [facility] [employer] [facility]. provides no warranty or guarantee of the accuracy or completeness of information in this document.
--- NOTE | 2024-03-04 10:05 | CT_ITS ---
[address] [address] Patient Name: JOSE WEST MRN: [id number] date: 1950 Sex: M Assigned Patient Location: LAB Current Patient Location: Accession/Order Number: [id number] Exam Date: 03/04/2024 10:35 Report Date: 03/05/2024 07:24 At the request of: BERNADETTE KIM Procedure: CT angio head EXAMINATION: CT angio head, CT angio neck HISTORY: Bilateral Carotid Bruits R09.89 COMPARISON: No relevant comparison available. TECHNIQUE: Axial, Coronal, and Sagittal CT images with IV contrast. Multi-planar/3-D imaging to optimize visualization of vascular anatomy. Percent stenosis is based on NASCET criteria. Dose reduction techniques were achieved by using automated exposure control and/or adjustment of mA and/or kV according to patient size and/or use of iterative reconstruction technique. FINDINGS: HEAD: VASCULATURE: Moderate atherosclerotic disease of the parasellar carotid arteries. No aneurysm or occlusion. VENTRICLES: No enlargement or displacement. CEREBRUM: Large area of low-attenuation within left basal ganglia, 6.4 x 4.0 x 4.6 cm. Vessels pass through this area, but there is mild mass effect on the left lateral ventricle and the sylvian fissure. CEREBELLUM: Normal for age. No excessive atrophy, mass, or hemorrhage, or abnormal enhancement. BRAINSTEM: Normal for age. No excessive atrophy, mass, or hemorrhage, or abnormal enhancement. BASAL CISTERNS: Normal. No subarachnoid hemorrhage or effacement. SKULL: Negative. NECK: RIGHT INTERNAL CAROTID: No hemodynamically significant stenosis or dissection. EXTERNAL CAROTID: No hemodynamically significant stenosis or dissection. COMMON CAROTID: No hemodynamically significant stenosis or dissection. VERTEBRAL: No hemodynamically significant stenosis or dissection. LEFT INTERNAL CAROTID: Mild-moderate atherosclerotic narrowing of bulb and proximal ICA. EXTERNAL CAROTID: No hemodynamically significant stenosis or dissection. COMMON CAROTID: No hemodynamically significant stenosis or dissection. VERTEBRAL: No hemodynamically significant stenosis or dissection. OTHER: Moderate to marked degenerative disc disease C5-C6, C6-C7. CT/CT angio head IMPRESSION: 1. Large area of abnormally decreased density within the left basal ganglia (6.4 x 4.0 x 4.6 cm) extending from the base of the brain to above the lateral ventricle. Vessels course through this area suggesting this is not a mass, however, there is mild mass effect on the lateral ventricle and sylvian fissure. MRI of the brain is recommended for further evaluation. 2. Moderate atherosclerotic narrowing of the left carotid bulb/proximal ICA and bilateral parasellar carotid arteries. 3. Moderate-marked degenerative disc disease of lower cervical spine. Electronically authenticated by: MAURICIO TORRES Date: 03/05/2024 07:24
--- NOTE | 2024-03-04 10:05 | CT_ITS ---
[address] [address] Patient Name: JOSE WEST MRN: [id number] date: 1950 Sex: M Assigned Patient Location: LAB Current Patient Location: Accession/Order Number: [id number] Exam Date: 03/04/2024 10:35 Report Date: 03/05/2024 07:24 At the request of: BERNADETTE KIM Procedure: CT angio neck EXAMINATION: CT angio head, CT angio neck HISTORY: Bilateral Carotid Bruits R09.89 COMPARISON: No relevant comparison available. TECHNIQUE: Axial, Coronal, and Sagittal CT images with IV contrast. Multi-planar/3-D imaging to optimize visualization of vascular anatomy. Percent stenosis is based on NASCET criteria. Dose reduction techniques were achieved by using automated exposure control and/or adjustment of mA and/or kV according to patient size and/or use of iterative reconstruction technique. FINDINGS: HEAD: VASCULATURE: Moderate atherosclerotic disease of the parasellar carotid arteries. No aneurysm or occlusion. VENTRICLES: No enlargement or displacement. CEREBRUM: Large area of low-attenuation within left basal ganglia, 6.4 x 4.0 x 4.6 cm. Vessels pass through this area, but there is mild mass effect on the left lateral ventricle and the sylvian fissure. CEREBELLUM: Normal for age. No excessive atrophy, mass, or hemorrhage, or abnormal enhancement. BRAINSTEM: Normal for age. No excessive atrophy, mass, or hemorrhage, or abnormal enhancement. BASAL CISTERNS: Normal. No subarachnoid hemorrhage or effacement. SKULL: Negative. NECK: RIGHT INTERNAL CAROTID: No hemodynamically significant stenosis or dissection. EXTERNAL CAROTID: No hemodynamically significant stenosis or dissection. COMMON CAROTID: No hemodynamically significant stenosis or dissection. VERTEBRAL: No hemodynamically significant stenosis or dissection. LEFT INTERNAL CAROTID: Mild-moderate atherosclerotic narrowing of bulb and proximal ICA. EXTERNAL CAROTID: No hemodynamically significant stenosis or dissection. COMMON CAROTID: No hemodynamically significant stenosis or dissection. VERTEBRAL: No hemodynamically significant stenosis or dissection. OTHER: Moderate to marked degenerative disc disease C5-C6, C6-C7. CT/CT angio neck IMPRESSION: 1. Large area of abnormally decreased density within the left basal ganglia (6.4 x 4.0 x 4.6 cm) extending from the base of the brain to above the lateral ventricle. Vessels course through this area suggesting this is not a mass, however, there is mild mass effect on the lateral ventricle and sylvian fissure. MRI of the brain is recommended for further evaluation. 2. Moderate atherosclerotic narrowing of the left carotid bulb/proximal ICA and bilateral parasellar carotid arteries. 3. Moderate-marked degenerative disc disease of lower cervical spine. Electronically authenticated by: MAURICIO TORRES Date: 03/05/2024 07:24
[2024-03-04 10:19] LABS: Estimated GFR (African America 44 (>=60); Estimated GFR (Non-African Ame 36 (>=60)
== END 2024-03-04 09:50 | disposition home or self-care (01) ==
LOC: LAB 09:49
PROVIDERS: PCP Family Medicine; Visit Provider Internal Medicine Interventional Cardiology
DX: Z01.818 Encounter for other preprocedural examination (principal); R09.89 Other specified symptoms and signs involving the circulatory and respiratory systems; R94.02 Abnormal brain scan
CPT/HCPCS: 36415; 70496; 70498; 82565; Q9966

== ENCOUNTER 2024-03-28 08:50 | Outpatient (OUT) | payer MEDICARE, SELFPAY ==
--- NOTE | 2024-03-28 08:53 | US_ITS ---
The [address] [address] Patient Name: JOSE WEST MRN: [id number] date: 1950 Sex: M Assigned Patient Location: Current Patient Location: [place] Accession/Order Number: [id number] Exam Date: 03/28/2024 08:54 Report Date: 03/28/2024 11:57 At the request of: PETRA CASTELLANOS Procedure: US arterial duplex UE BI EXAM: US arterial duplex UE BI HISTORY: Subclavian Steal Syndrome G45.8 COMPARISON: CTA neck 03/04/2024 and carotid duplex 02/17/2024 TECHNIQUE: Grayscale, color Doppler, spectral Doppler waveform analysis was used to evaluate the upper extremity arteries. FINDINGS: Waveforms are monophasic throughout the right upper extremity compared to the left upper extremity. Review of a CTA 03/04/2024 shows a high-grade right subclavian stenosis. The stenosis is within the proximal right subclavian artery before the takeoff of the vertebral artery. US/US arterial duplex UE BI IMPRESSION: Monophasic waveforms throughout the right upper extremity. Retrospective review of a previous CTA of the neck shows a high-grade right subclavian stenosis. Electronically authenticated by: Juan ANDERSEN Date: 03/28/2024 11:57
--- OUTSIDE RECORDS SUMMARY | 2024-03-28 09:13 | XMS_ITS | CCD ---
Author Organization [facility] Care Team Providers Care Fire Sprinkler Service Technician Name Role Phone EMANUEL ., DR LAMBERT [...] Unavailable HOY ., DR LAMBERT Attending Unavailable CORYDON, DR LISBET Santamaria Consulting Unavailable GAGE CARTER [...] ALAYNA Attending Unavailable ELTAHAWJessica, ALAYNA Attending Unavailable [facility] Attending Unavailable Allergies Allergy Classification Reported Allergen(s) Allergy Type Date of Onset Reaction(s) Facility (1 source) No Known Medication Allergies; Translations: [No Known Medication Allergies] Propensity to adverse reactions (disorder) [facility] Repository Medications Current Medications Medication Drug Class(es) [...] Onset: 01-01-2022 Episodic Other aftercare (1 source) 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; Translations: [SKILLED NURSING CURRNT USE ANTICOAGULANTS] Onset: 11-26-2022 Episodic Other aftercare (2 sources) Long-term current use of anticoagulant; Translations: [correction (current) use of anticoagulants] Onset: 03-18-2023 Episodic [...] 06-08-2022 Episodic Other aftercare (1 source) Other office admin (current) drug therapy; Translations: [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 He likely needs an MRI but I will defer to neurology. Thank you. Dr. Wooten's office made aware of the plan. I also spoke with the patient and made him aware. He doesn't see neurology so I will send referral to [facility] in [place]. Patient verbalized understanding and agrees to referral. [facility] Office Visiton 03-01-2024 Follow-up visit [id number] Martin West 1950 M Date Provider Department Center 03/01/2024 ALAYNA RANDALL [facility] Family History Problem Relation Age of Onset No Known Problems Mother No Known Problems Father Family Status - Relation Status Age at Mother Father Level of Service:29968 OR OFFICE/OUTPATIENT ESTABLISHED MOD MDM 30 MIN [facility] 36on 02-24-2024 36 Spoke with patient and informed him of results. He is scheduled for follow up with Dr. Kim on 03/01 and would like to discuss things with him then. [facility] 36on 02-22-2024 36 Regarding stress bro t from 02/17/2024: MD Sophy Breaux MA Please reassure the patient that his stress test was nonischemic Thank you Dr. Kim, were you able to also review his carotid US and echo from last week? [facility] 36on 02-17-2024 36 I just scanned in patient's lipid and liver profiles that were drawn this morning. I believe you wanted them done in Apr. Can you review them and I'll also let the patient know they'll need to be repeated in 3 months if you still want them. Thanks! [facility] Follow-Upon 02-01-2024 Follow-Up [id number] Martin West 1950 M Date Provider Department Center 02/01/2024 ALAYNA RANDALL [facility] Family History Problem Relation Age of Onset No Known Problems Mother No Known Problems Father Family Status - Relation Status Age at Mother Father Level of Service:43381 OR OFFICE/OUTPATIENT ESTABLISHED MOD MDM 30 MIN [facility] Outside Colonoscopyon 2022 Outside Colonoscopy [id number] .[id number] [facility] Reminderson 04-09-2023 Reminders - From: Karlene Stewart LPN To: N - Clinical; Sent: 04/09/2023 10:49:10 EDT Show up: 03/09/2033 07:00:00 EDT Subject: colonoscopy recall Due Date/Time: 04/08/2033 07:00:00 EDT Reminder/Recall Patient due for screening colonoscopy 04/08/2033. Normal [facility] Consent for Procedure/Surger yon 03-19-2023 Consent for Procedure/Surgery [id number]# 1.00CD:127 Normal [facility] Facesheeton 03-19-2023 Facesheet [id number]# 1.00CD:127 Normal [facility] Ambulatory Visit Summaryon 0 03-18-2023 Ambulatory Visit Summary MARTIN WEST :1950 Visit Date:03/18/2023 Ambulatory Visit Instructions Your Diagnosis Fecal occult blood test positive correction current use of anticoagulant Your Care Team [...] History of myocardial infarction Hyperlipidemia Internal hemorrhoids 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 Nicotine dependence Normal [facility] Office Visiton 03-18-2023 Follow-up visit [id number] Martin West 1950 M Date Provider Department Center 03/18/2023 [id number], EHAB BH CARD [facility] No family history on file Level of Service:89516 OR OFFICE/OUTPATIENT ESTABLISHED LOW MDM 20-29 MIN Normal [facility] Physician Referralon 023 Physician Referral [id number]. 00CD:127 Normal [facility] INSULINon 11-15-2022 Insulin 20.3 uIU/mL Normal 2.6-24.9 [facility] Comment on above: Performed By: #### I NSULIN #### [facility] [address] [place] [address] Dr. Kamaljit Browning CBC AUTO DIFFon 11-14-2022 BASO # 0.0 103/ul Normal 0.0-0.1 [facility] Comment on above: Performed By: #### C MP, BNP #### [facility] [address] [place] [address] Dr. Kamaljit Browning Basophils/100 WBC (Bld) 0.8 % Normal 0.2-2.0 [facility] Comment on above: Performed By: #### C MP, BNP #### [facility] [address] [place] [address] Dr. Kamaljit Browning EO # 0.1 103/ul Normal 0.0-0.7 [facility] Comment on above: Performed By: #### C MP, BNP #### [facility] [address] [place] [address] Dr. Kamaljit Browning Eosinophils/100 WBC (Bld) 1.7 % Normal 0.9-7.0 [facility] Comment on above: Performed By: #### C MP, BNP #### [facility] [address] [place] [address] Dr. Kamaljit Browning Erythrocyte distribution width (RBC) [Ratio] 12.7 % Normal 11.0-15.0 [facility] Comment on above: Performed By: #### C MP, BNP #### [facility] [address] [place] [address] Dr. Kamaljit Browning Hematocrit (Bld) [Volume fraction] 38.4 % Critically low 42.0-54.0 [facility] Comment on above: Performed By: #### C MP, BNP #### [facility] [address] [place] [address] Dr. Kamaljit Browning Hemoglobin (Bld) [Mass/Vol] 12.8 g/dL Critically low 14.0-18.0 [facility] Comment on above: Performed By: #### C MP, BNP #### [facility] [address] [place] [address] Dr. Kamaljit Browning IG # 0.02 10e3/ul Normal 0.00-0.03 [facility] Comment on above: Performed By: #### C MP, BNP #### [facility] [address] [place] [address] Dr. Kamaljit Browning IG % 0.4 % Normal 0.0-0.5 [facility] Comment on above: Performed By: #### C MP, BNP #### [facility] [address] [place] [address] Dr. Kamaljit Browning LYMPH # 0.8 103/ul Critically low 1.2-3.8 [facility] Comment on above: Performed By: #### C MP, BNP #### [facility] [address] [place] [address] Dr. Kamaljit Browning Lymphocytes/100 WBC (Bld) 15.2 % Critically low 20.5-60.0 [facility] Comment on above: Performed By: #### C MP, BNP #### [facility] [address] [place] [address] Dr. Kamaljit Browning MANUAL DIFF REQ NO Normal [facility] Comment on above: Performed By: #### C MP, BNP #### [facility] [address] [place] [address] Dr. Kamaljit Browning MCH (RBC) [Entitic mass] 30.6 pg Normal 25.9-34.0 [facility] Comment on above: Performed By: #### C MP, BNP #### [facility] [address] [place] [address] Dr. Kamaljit Browning MCHC (RBC) [Mass/Vol] 33.3 g/dL Normal 29.9-35.2 [facility] Comment on above: Performed By: #### C MP, BNP #### [facility] [address] [address] [address] Kamaljit Browning MCV (RBC) [Entitic vol] 91.9 fL Normal 80.0-94.0 [facility] Comment on above: Performed By: #### C MP, BNP #### [facility] [address] [address] [address] Kamaljit Browning MONO # 0.5 103/ul Normal 0.3-0.8 [facility] Comment on above: Performed By: #### C MP, BNP #### [facility] [address] [place] [address] Dr. Kamaljit Browning Monocytes/100 WBC (Bld) 8.9 % Normal 1.7-12.0 [facility] Comment on above: Performed By: #### C MP, BNP #### [facility] [address] [place] [address] Dr. Kamaljit Browning NEUT # 3.8 103/ul Normal 1.4-6.5 [facility] Comment on above: Performed By: #### C MP, BNP #### [facility] [address] [place] [address] Dr. Kamaljit Browning Neutrophils/100 WBC (Bld) 73.0 % Normal 43.0-75.0 [facility] Comment on above: Performed By: #### C MP, BNP #### [facility] [address] [place] [address] Dr. Kamaljit Browning Platelet mean volume (Bld) [Entitic vol] 12.5 fL Normal 9.5-13.5 [facility] Comment on above: Performed By: #### C MP, BNP #### [facility] [address] [place] [address] Dr. Kamaljit Browning PLT 126 103/ul Critically low 150-450 [facility] Comment on above: Performed By: #### C MP, BNP #### [facility] [address] [place] [address] Dr. Kamaljit Browning RBC 4.18 106/ul Critically low 4.70-6.10 [facility] Comment on above: Performed By: #### C MP, BNP #### [facility] [address] [address] [address] Kamaljit Browning WBC 5.2 103/ul Normal 4.0-11.0 [facility] Comment on above: Performed By: #### C MP, BNP #### [facility] [address] [address] [address] Kamaljit Browning FREE THYROXINE INDEX T7on FTI 2.31 Normal 1.30-4.50 [facility] Comment on above: Performed By: #### C BC #### [facility] [address] [address] [address] Kamaljit Browning T3U 34.0 % Normal 33.0-40.0 [facility] Comment on above: Performed By: #### C BC #### [facility] [address] [place] [address] Dr. Kamaljit Browning T4 [Mass/Vol] 6.80 ug/dL Normal 4.50-12.10 [facility] Comment on above: Performed By: #### C BC #### [facility] [address] [address] [address] Kamaljit Browning GLYCOHEMOGLOBIN A1Con 2022 ADA RECOMMENDATION SEE BELOW Normal [facility] Comment on above: Result Comment: ADA RECOMMENDED LIMIT 4.0 - 6.0 ADA THERAPEUTIC TARGET < 7.0 ACTION SUGGESTED > 7.0 Performed By: #### A 1C #### [facility] [address] [address] [address] Kamaljit Browning Glucose [Mass/Vol] 154 mg/dL Normal [facility] Comment on above: Performed By: #### A 1C #### [facility] [address] [address] [address] Kamaljit Browning HbA1c (Bld) [Mass fraction] 7.0 % Critically high 4.5-6.2 [facility] Comment on above: Performed By: #### A 1C #### [facility] [address] [place] [address] Dr. Kamaljit Browning LIPID PROFILEon 11-14-2022 CHOL-HDL RATIO NORM SEE BELOW Normal [facility] Comment on above: Result Comment: 3.3 - 4.4 LOW RISK 4.4 - 7.1 AVERAGE RISK 7.1 - 11.0 MODERATE RISK >11.0 HIGH RISK Performed By: #### A 1C #### [facility] [address] [address] [address] Kamaljit Browning Cholesterol [Mass/Vol] 148 mg/dL Normal <=200 [facility] Comment on above: Performed By: #### A 1C #### [facility] [address] [address] [address] Kamaljit Browning Cholesterol in HDL [Mass/Vol] 41 mg/dL Normal 40-60 [facility] Comment on above: Performed By: #### A 1C #### [facility] [address] [address] [address] Kamaljit Browning Cholesterol in LDL [Mass/Vol] 81.6 mg/dL Normal [facility] Comment on above: Performed By: #### A 1C #### [facility] [address] [address] [address] Kamaljit Browning Cholesterol.total/Ch olesterol in HDL [Mass ratio] 3.6 {ratio} Normal [facility] Comment on above: Performed By: #### A 1C #### [facility] [address] [address] [address] Kamaljit Browning HDL NORMAL > or = 60 mg/dl - LO W CARDIOVASCULAR RISK <40 mg/dl - HIGH CARDIOVASCULAR RISK Normal [facility] Comment on above: Performed By: #### A 1C #### [facility] [address] [address] [address] Kamaljit Browning LDL CALC NORMAL SEE BELOW Normal [facility] Comment on above: Result Comment: <100 mg/dl OPTIMAL 100 - 129 mg/dl NEAR OR ABOVE OPTIMAL 130 - 159 mg/dl BORDERLINE HIGH 160 - 189 mg/dl HIGH >190 mg/dl VERY HIGH Performed By: #### A 1C #### [facility] [address] [place] [address] Dr. Kamaljit Browning Triglyceride [Mass/Vol] 127 mg/dL Normal <=150 [facility] Comment on above: Performed By: #### A 1C #### [facility] [address] [place] [address] Dr. Kamaljit Browning VLDL CALC 25.4 mg/dL Normal [facility] Comment on above: Performed By: #### A 1C #### [facility] [address] [place] [address] Dr. Kamaljit Browning PROF 14(COMP METB)on 023 Albumin [Mass/Vol] 4.2 g/dL Normal 3.4-5.0 [facility] Comment on above: Performed By: #### A 1C #### [facility] [address] [place] [address] Dr. Kamaljit Browning Albumin/Globulin [Mass ratio] 1.3 {ratio} Normal [facility] Comment on above: Performed By: #### A 1C #### [facility] [address] [place] [address] Dr. Kamaljit Browning ALP [Catalytic activity/Vol] 79 U/L Normal 46-116 [facility] Comment on above: Performed By: #### A 1C #### [facility] [address] [place] [address] Dr. Kamaljit Browning ALT [Catalytic activity/Vol] 27 U/L Normal 16-63 [facility] Comment on above: Performed By: #### A 1C #### [facility] [address] [place] [address] Dr. Kamaljit Browning Anion gap [Moles/Vol] 15.0 mmol/L Normal [facility] Comment on above: Performed By: #### A 1C #### [facility] [address] [place] [address] Dr. Kamaljit Browning AST [Catalytic activity/Vol] 23 U/L Normal 15-37 [facility] Comment on above: Performed By: #### A 1C #### [facility] [address] [place] [address] Dr. Kamaljit Browning Bilirubin [Mass/Vol] 0.3 mg/dL Normal 0.2-1.0 [facility] Comment on above: Performed By: #### A 1C #### [facility] [address] [place] [address] Dr. Kamaljit Browning Calcium [Mass/Vol] 9.0 mg/dL Normal 8.5-10.1 [facility] Comment on above: Performed By: #### A 1C #### [facility] [address] [place] [address] Dr. Kamaljit Browning Chloride [Moles/Vol] 105 mmol/L Normal 98-107 [facility] Comment on above: Performed By: #### A 1C #### [facility] [address] [address] [address] Kamaljit Browning CO2 [Moles/Vol] 24.7 mmol/L Normal 21.0-32.0 [facility] Comment on above: Performed By: #### A 1C #### [facility] [address] [place] [address] Dr. Kamaljit Browning Creatinine [Mass/Vol] 1.55 mg/dL Critically high 0.70-1.30 [facility] Comment on above: Performed By: #### A 1C #### [facility] [address] [place] [address] Dr. Kamaljit Browning EGFR-AF LUXEMBOURGER 54 mL/min/1.73m2 Critically low >=60 [facility] Comment on above: Performed By: #### A 1C #### [facility] [address] [place] [address] Dr. Kamaljit Browning EGFR-NON AF LUXEMBOURGER 45 mL/min/1.73m2 Critically low >=60 [facility] Comment on above: Performed By: #### A 1C #### [facility] [address] [place] [address] Dr. Kamaljit Browning Globulin (S) [Mass/Vol] 3.3 g/dL Normal [facility] Comment on above: Performed By: #### A 1C #### [facility] [address] [place] [address] Dr. Kamaljit Browning Glucose [Mass/Vol] 129 mg/dL Critically high 74-106 [facility] Comment on above: Performed By: #### A 1C #### [facility] [address] [place] [address] Dr. Kamaljit Browning Potassium [Moles/Vol] 4.7 mmol/L Normal 3.5-5.1 [facility] Comment on above: Performed By: #### A 1C #### [facility] [address] [address] [address] Kamaljit Browning Protein [Mass/Vol] 7.5 g/dL Normal 6.4-8.2 [facility] Comment on above: Performed By: #### A 1C #### [facility] [address] [address] [address] Kamaljit Browning Sodium [Moles/Vol] 140 mmol/L Normal 136-145 [facility] Comment on above: Performed By: #### A 1C #### [facility] [address] [place] [address] Dr. Kamaljit Browning Urea nitrogen [Mass/Vol] 30.0 mg/dL Critically high 7.0-18.0 [facility] Comment on above: Performed By: #### A 1C #### [facility] [address] [place] [address] Dr. Kamaljit Browning Urea nitrogen/Creatinine [Mass ratio] 19.4 mg/mg Normal [facility] Comment on above: Performed By: #### A 1C #### [facility] [address] [place] [address] Dr. Kamaljit Browning TSHon 11-14-2022 TSH 1.597 uIU/mL Normal 0.358-3.740 [facility] Comment on above: Performed By: #### A 1C #### [facility] [address] [place] [address] Dr. Kamaljit Browning URIC ACID SERUMon 11-14-2022 Urate [Mass/Vol] 9.4 mg/dL Critically high 3.5-7.2 [facility] Comment on above: Performed By: #### C BC #### [facility] [address] [place] [address] Dr. Kamaljit Browning OCC BLD IMMUNO SCREENon 10-27 OCCULT BLOOD Positive Abnormal NEGATIVE [facility] Comment on above: Performed By: #### C MP, BNP #### [facility] [address] [place] [address] Dr. Kamaljit Browning POINT OF CARE GLUCOSEon 05-29 Glucose [Mass/Vol] 329 mg/dL Critically high 74-106 [facility] Comment on above: Performed By: #### A 1C #### [facility] [address] [place], [place] [address] Dr. Kamaljit Browning [facility]on SARS-CoV-2 (COVID-19) RNA SOURAV+probe Ql (Unsp spec) Not detected Normal NOT DETECTED [facility] Comment on above: Result Comment: When [...] for this test is supported by the Official Court Reporter of Health and Human Service's declaration that [...] used). Performed By: #### A 1C #### [facility] [address] [place] [address] Dr. Kamaljit Browning INFLUENZA A AND B AGon 06-02 INFLUANEGH SEE BELOW Normal [facility] Comment on above: Result Comment: Nega tive for Flu A protein angiten. Infection due to Flu A cannot be ruled out. Flu A angiten in the sample may be below the detection limit of the test. Performed By: #### C BC #### [facility] [address] [place] [address] Dr. Kamaljit Browning INFLUBNEGH SEE BELOW Normal [facility] Comment on above: Result Comment: Nega tive for Flu B protein antigen. Infection due to Flu B cannot be ruled out. Flu B antigen in the sample may be below the detection limit of the test. Performed By: #### C BC #### [facility] [address] [place] [address] Dr. Kamaljit Browning INFLUENZA A AG Negative Normal NEGATIVE SEE COMMENT [facility] Comment on above: Performed By: #### C BC #### [facility] [address] [place] [address] Dr. Kamaljit Browning INFLUENZA B AG Negative Normal NEGATIVE SEE COMMENT [facility] Comment on above: Performed By: #### C BC #### [facility] [address] [place] [address] Dr. aKmaljit Browning INTERNAL CONTROLS Within Normal Limits Normal Wi thin Normal Limits [facility] Comment on above: Performed By: #### C BC #### [facility] [address] [place] [address] Dr. Kamaljit Browning PROF CHEM 8 (BAS METB)on Anion gap [Moles/Vol] 13.1 mmol/L Normal [facility] Comment on above: Performed By: #### C BC #### [facility] [address] [place] [address] Dr. Kamaljit Browning Calcium [Mass/Vol] 8.9 mg/dL Normal 8.5-10.1 [facility] Comment on above: Performed By: #### C BC #### [facility] [address] [place] [address] Dr. Kamaljit Browning Chloride [Moles/Vol] 105 mmol/L Normal 98-107 [facility] Comment on above: Performed By: #### C BC #### [facility] [address] [place] [address] Dr. Kamaljit Browning CO2 [Moles/Vol] 27.3 mmol/L Normal 21.0-32.0 [facility] Comment on above: Performed By: #### C BC #### [facility] [address] [place] [address] Dr. Kamaljit Browning Creatinine [Mass/Vol] 1.28 mg/dL Normal 0.70-1.30 [facility] Comment on above: Performed By: #### C BC #### [facility] [address] [address] [address] Kamaljit Browning EGFR-AF LUXEMBOURGER >60 Normal >=60 [facility] Comment on above: Performed By: #### C BC #### [facility] [address] [address] [address] Kamaljit Browning EGFR-NON AF LUXEMBOURGER 56 mL/min/1.73m2 Critically low >=60 [facility] Comment on above: Performed By: #### C BC #### [facility] [address] [address] [address] Kamaljit Browning Glucose [Mass/Vol] 119 mg/dL Critically high 74-106 [facility] Comment on above: Performed By: #### C BC #### [facility] [address] [address] [address] Kamaljit Browning Potassium [Moles/Vol] 4.4 mmol/L Normal 3.5-5.1 [facility] Comment on above: Performed By: #### C BC #### [facility] [address] [address] [address] Kamaljit Browning Sodium [Moles/Vol] 141 mmol/L Normal 136-145 [facility] Comment on above: Performed By: #### C BC #### [facility] [address] [address] [address] aKmaljit Browning Urea nitrogen [Mass/Vol] 20.0 mg/dL Critically high 7.0-18.0 [facility] Comment on above: Performed By: #### C BC #### [facility] [address] [address] [address] Kamaljit Browning Urea nitrogen/Creatinine [Mass ratio] 15.6 mg/mg Normal [facility] Comment on above: Performed By: #### C BC #### [facility] [address] [place] [address] Dr. Kamaljit Browning METANEPHRINES PLASMA FREEon 01-18-2022 Metanephrine, Pl 46.2 pg/mL Normal 0.0-88.0 [facility] Comment on above: Performed By: #### C MP, BNP #### [facility] [address] [place] [address] Dr. Kamaljit Browning Normetanephrine, Pl 33.2 pg/mL Normal 0.0-285.2 [facility] Comment on above: Performed By: #### C MP, BNP #### [facility] [address] [place] [address] Dr. Kamaljit Browning ALDOSTERONE: RENIN RATIOon 0 01-08-2022 Aldos/Renin Ratio UPTCAL Normal [facility] Comment on above: Result Comment: Unab le to calculate result since non-numeric result obtained for component test. Units: ng/dL per ng/mL/hr Performed By: #### A LDOREN #### [facility] [address] [place] [address] Dr. Kamaljit Browning Aldosterone <1.0 Normal 0.0-30.0 [facility] Comment on above: Performed By: #### A LDOREN #### [facility] [address] [place] [address] Dr. Kamaljit Browning Renin Activity, Plasma <0.167 Critically low 0.167-5.380 [facility] Comment on above: Performed By: #### A LDOREN #### [facility] [address] [place] [address] Dr. Kamaljit Browning CATECHOLAMINES FRAC, PLASMAo n 07 Dopamine, Pl <30 Normal 0-48 [facility] Comment on above: Performed By: #### C MP, BNP #### [facility] [address] [place] [address] Dr. Kamaljit Browning Epinephrine, Pl 58 pg/mL Normal 0-62 [facility] Comment on above: Performed By: #### C MP, BNP #### [facility] [address] [place] [address] Dr. Kamaljit Browning Norepinephrine, Pl 246 pg/mL Normal 0-874 [facility] Comment on above: Performed By: #### C MP, BNP #### [facility] [address] [place] [address] Dr. Kamaljit Browning BNPon 12-26-2021 Natriuretic peptide B (Bld) [Mass/Vol] 126.0 pg/mL Normal <=900.0 [facility] Comment on above: Performed By: #### C MP, BNP #### [facility] [address] [place] [address] Dr. Kamaljit Browning CBC AUTO DIFFon 12-26-2021 BASO # 0.1 103/ul Normal 0.0-0.1 [facility] Comment on above: Performed By: #### C BC #### [facility] [address] [place] [address] Dr. Kamaljit Browning Basophils/100 WBC (Bld) 0.9 % Normal 0.2-2.0 [facility] Comment on above: Performed By: #### C BC #### [facility] [address] [place] [address] Dr. Kamaljit Browning EO # 0.1 103/ul Normal 0.0-0.7 [facility] Comment on above: Performed By: #### C BC #### [facility] [address] [place] [address] Dr. Kamaljit Browning Eosinophils/100 WBC (Bld) 1.0 % Normal 0.9-7.0 [facility] Comment on above: Performed By: #### C BC #### [facility] [address] [place] [address] Dr. Kamaljit Browning Erythrocyte distribution width (RBC) [Ratio] 12.1 % Normal 11.0-15.0 [facility] Comment on above: Performed By: #### C BC #### [facility] [address] [place] [address] Dr. Kamaljit Browning Hematocrit (Bld) [Volume fraction] 39.2 % Critically low 42.0-54.0 [facility] Comment on above: Performed By: #### C BC #### [facility] [address] [place] [address] Dr. Kamaljit Browning Hemoglobin (Bld) [Mass/Vol] 13.2 g/dL Critically low 14.0-18.0 [facility] Comment on above: Performed By: #### C BC #### [facility] [address] [address] [address] Kamaljit Browning IG # 0.01 10e3/ul Normal 0.00-0.03 [facility] Comment on above: Performed By: #### C BC #### [facility] [address] [address] [address] Kamaljit Browning IG % 0.2 % Normal 0.0-0.5 [facility] Comment on above: Performed By: #### C BC #### [facility] [address] [place] [address] Dr. Kamaljit Browning LYMPH # 1.1 103/ul Critically low 1.2-3.8 [facility] Comment on above: Performed By: #### C BC #### [facility] [address] [place] [address] Dr. Kamaljit Browning Lymphocytes/100 WBC (Bld) 18.5 % Critically low 20.5-60.0 [facility] Comment on above: Performed By: #### C BC #### [facility] [address] [place] [address] Dr. Kamaljit Browning MANUAL DIFF REQ NO Normal [facility] Comment on above: Performed By: #### C BC #### [facility] [address] [place] [address] Dr. Kamaljit Browning MCH (RBC) [Entitic mass] 30.5 pg Normal 25.9-34.0 [facility] Comment on above: Performed By: #### C BC #### [facility] [address] [place] [address] Dr. Kamaljit Browning MCHC (RBC) [Mass/Vol] 33.7 g/dL Normal 29.9-35.2 [facility] Comment on above: Performed By: #### C BC #### [facility] [address] [place] [address] Dr. Kamaljit Browning MCV (RBC) [Entitic vol] 90.5 fL Normal 80.0-94.0 [facility] Comment on above: Performed By: #### C BC #### [facility] [address] [address] [address] Kamaljit Browning MONO # 0.4 103/ul Normal 0.3-0.8 [facility] Comment on above: Performed By: #### C BC #### [facility] [address] [place] [address] Dr. Kamaljit Browning Monocytes/100 WBC (Bld) 7.7 % Normal 1.7-12.0 [facility] Comment on above: Performed By: #### C BC #### [facility] [address] [place] [address] Dr. Kamaljit Browning NEUT # 4.1 103/ul Normal 1.4-6.5 [facility] Comment on above: Performed By: #### C BC #### [facility] [address] [place] [address] Dr. Kamaljit Browning Neutrophils/100 WBC (Bld) 71.7 % Normal 43.0-75.0 [facility] Comment on above: Performed By: #### C BC #### [facility] [address] [place] [address] Dr. Kamaljit Browning Platelet mean volume (Bld) [Entitic vol] 12.9 fL Normal 9.5-13.5 [facility] Comment on above: Performed By: #### C BC #### [facility] [address] [place] [address] Dr. Kamaljit Browning PLT 129 103/ul Critically low 150-450 [facility] Comment on above: Performed By: #### C BC #### [facility] [address] [place] [address] Dr. Kamaljit Browning RBC 4.33 106/ul Critically low 4.70-6.10 [facility] Comment on above: Performed By: #### C BC #### [facility] [address] [place] [address] Dr. Kamaljit Browning WBC 5.7 103/ul Normal 4.0-11.0 [facility] Comment on above: Performed By: #### C BC #### [facility] [address] [place] [address] Dr. Kamaljit Browning PROF 14(COMP METB)on 022 Albumin [Mass/Vol] 3.9 g/dL Normal 3.4-5.0 [facility] Comment on above: Performed By: #### C MP, BNP #### [facility] [address] [place] [address] Dr. Kamaljit Browning Albumin/Globulin [Mass ratio] 1.2 {ratio} Normal [facility] Comment on above: Performed By: #### C MP, BNP #### [facility] [address] [place] [address] Dr. Kamaljit Browning ALP [Catalytic activity/Vol] 83 U/L Normal 46-116 [facility] Comment on above: Performed By: #### C MP, BNP #### [facility] [address] [place] [address] Dr. Kamaljit Browning ALT [Catalytic activity/Vol] 30 U/L Normal 16-63 [facility] Comment on above: Performed By: #### C MP, BNP #### [facility] [address] [place] [address] Dr. Kamaljit Browning Anion gap [Moles/Vol] 12.6 mmol/L Normal [facility] Comment on above: Performed By: #### C MP, BNP #### [facility] [address] [place] [address] Dr. Kamaljit Browning AST [Catalytic activity/Vol] 28 U/L Normal 15-37 [facility] Comment on above: Performed By: #### C MP, BNP #### [facility] [address] [place] [address] Dr. Kamaljit Browning Bilirubin [Mass/Vol] 0.6 mg/dL Normal 0.2-1.0 [facility] Comment on above: Performed By: #### C MP, BNP #### [facility] [address] [place] [address] Dr. Kamaljit Browning Calcium [Mass/Vol] 8.9 mg/dL Normal 8.5-10.1 [facility] Comment on above: Performed By: #### C MP, BNP #### [facility] [address] [place] [address] Dr. Kamaljit Browning Chloride [Moles/Vol] 107 mmol/L Normal 98-107 [facility] Comment on above: Performed By: #### C MP, BNP #### [facility] [address] [place] [address] Dr. Kamaljit Browning CO2 [Moles/Vol] 26.4 mmol/L Normal 21.0-32.0 [facility] Comment on above: Performed By: #### C MP, BNP #### [facility] [address] [place] [address] Dr. Kamaljit Browning Creatinine [Mass/Vol] 1.11 mg/dL Normal 0.70-1.30 [facility] Comment on above: Performed By: #### C MP, BNP #### [facility] [address] [place] [address] Dr. Kamaljit Browning EGFR-AF LUXEMBOURGER >60 Normal >=60 [facility] Comment on above: Performed By: #### C MP, BNP #### [facility] [address] [place] [address] Dr. Kamaljit Browning EGFR-NON AF LUXEMBOURGER >60 Normal >=60 [facility] Comment on above: Performed By: #### C MP, BNP #### [facility] [address] [place] [address] Dr. Kamaljit Browning Globulin (S) [Mass/Vol] 3.2 g/dL Normal [facility] Comment on above: Performed By: #### C MP, BNP #### [facility] [address] [place] [address] Dr. Kamaljit Browning Glucose [Mass/Vol] 112 mg/dL Critically high 74-106 [facility] Comment on above: Performed By: #### C MP, BNP #### [facility] [address] [place] [address] Dr. Kamaljit Browning Potassium [Moles/Vol] 4.0 mmol/L Normal 3.5-5.1 [facility] Comment on above: Performed By: #### C MP, BNP #### [facility] [address] [place] [address] Dr. Kamaljit Browning Protein [Mass/Vol] 7.1 g/dL Normal 6.4-8.2 [facility] Comment on above: Performed By: #### C MP, BNP #### [facility] [address] [place] [address] Dr. Kamaljit Browning Sodium [Moles/Vol] 142 mmol/L Normal 136-145 [facility] Comment on above: Performed By: #### C MP, BNP #### [facility] [address] [place] [address] Dr. Kamaljit Browning Urea nitrogen [Mass/Vol] 15.0 mg/dL Normal 7.0-18.0 [facility] Comment on above: Performed By: #### C MP, BNP #### [facility] [address] [place] [address] Dr. Kamaljit Browning Urea nitrogen/Creatinine [Mass ratio] 13.5 mg/mg Normal [facility] Comment on above: Performed By: #### C MP, BNP #### [facility] [address] [place] [address] Dr. Kamaljit Browning PROTIMEon 12-26-2021 INR Coag (PPP) [Relative time] 3.98 {INR} Normal [facility] Comment on above: Performed By: #### A 1C #### [facility] [address] [place] [address] Dr. Kamaljit Browning INR GUIDELINES SEE BELOW Normal [facility] Comment on above: Result Comment: NILDA RED INR: 2.0 - 3.0 CONDITIONS NOT LISTED BELOW 2.5 - 3.5 FOR PROSTHETIC HEART VALVE REPLACEMENT 2.5 - 3.5 RECURRENT THROMBOSIS Performed By: #### A 1C #### [facility] [address] [place] [address] Dr. Kamaljit Browning PT Coag (PPP) [Time] 39.3 s Critically high 9.0-11.6 [facility] Comment on above: Performed By: #### A 1C #### [facility] [address] [place] [address] Dr. Kamaljit Browning T3, TOTAL (TRIIODOTHYRONINE) on 12-26-2021 T3, TOTAL 67 ng/dL Critically low 71-180 [facility] Comment on above: Performed By: #### C BC #### [facility] [address] [address] [address] Kamaljit Browning VASCULAR ORG CMPLon 12-26 [...] by: LISBET BRANCH Date: 2021-12-26 09:34 Normal [facility] BNPon 12-25-2021 Natriuretic peptide B (Bld) [Mass/Vol] 106.0 pg/mL Normal <=900.0 [facility] Comment on above: Performed By: #### C MP, BNP #### [facility] [address] [place] [address] Dr. Kamaljit Browning CARDIAC GABRIELLA 3-6on 2 CK [Catalytic activity/Vol] 92 U/L Normal 39-308 [facility] Comment on above: Performed By: #### C MP, BNP #### [facility] [address] [place] [address] Dr. Kamaljit Browning CK.MB [Mass/Vol] 1.08 ng/mL Normal <=3.60 [facility] Comment on above: Performed By: #### C MP, BNP #### [facility] [address] [place] [address] Dr. Kamaljit Browning HSTROP 21.7 pg/mL Normal 4.0-76.1 [facility] Comment on above: Result Comment: CUT- OFF POINTS HAVE BEEN ESTABLISHED BASED ON THE FOURTH UNIVERSAL DEFINITIONS OF MYOCARDIAL INFARCTION. THE UPPER REFERENCE LIMIT (URL) OF TROPONIN, DEFINED THE 99TH PERCENTILE OF cTnI DISTRIBUTION IN A REFERENCE POPULATION, HAS BEEN CONFIRMED THE DECISION THRESHOLD FOR [place] DIAGNOSIS. Performed By: #### C MP, BNP #### [facility] [address] [place] [address] Dr. Kamaljit Browning CK [Catalytic activity/Vol] 98 U/L Normal 39-308 [facility] Comment on above: Performed By: #### C MP, BNP #### [facility] [address] [place] [address] Dr. Kamaljit Browning CK.MB [Mass/Vol] 1.25 ng/mL Normal <=3.60 [facility] Comment on above: Performed By: #### C MP, BNP #### [facility] [address] [place] [address] Dr. Kamaljit Browning HSTROP 23.6 pg/mL Normal 4.0-76.1 [facility] Comment on above: Result Comment: CUT- OFF POINTS HAVE BEEN ESTABLISHED BASED ON THE FOURTH UNIVERSAL DEFINITIONS OF MYOCARDIAL INFARCTION. THE UPPER REFERENCE LIMIT (URL) OF TROPONIN, DEFINED THE 99TH PERCENTILE OF cTnI DISTRIBUTION IN A REFERENCE POPULATION, HAS BEEN CONFIRMED THE DECISION THRESHOLD FOR [place] DIAGNOSIS. Performed By: #### C MP, BNP #### [facility] [address] [address] [address] Kamaljit Browning CARDIAC GABRIELLA ADMITon 022 CK [Catalytic activity/Vol] 105 U/L Normal 39-308 [facility] Comment on above: Performed By: #### C MP, BNP #### [facility] [address] [place] [address] Dr. Kamaljit Browning CK.MB [Mass/Vol] 0.99 ng/mL Normal <=3.60 [facility] Comment on above: Performed By: #### C MP, BNP #### [facility] [address] [place] [address] Dr. Kamaljit Browning HSTROP 24.9 pg/mL Normal 4.0-76.1 [facility] Comment on above: Result Comment: CUT- OFF POINTS HAVE BEEN ESTABLISHED BASED ON THE FOURTH UNIVERSAL DEFINITIONS OF MYOCARDIAL INFARCTION. THE UPPER REFERENCE LIMIT (URL) OF TROPONIN, DEFINED THE 99TH PERCENTILE OF cTnI DISTRIBUTION IN A REFERENCE POPULATION, HAS BEEN CONFIRMED THE DECISION THRESHOLD FOR [place] DIAGNOSIS. Performed By: #### C MP, BNP #### [facility] [address] [place] [address] Dr. Kamaljit Browning SANDI 51 ng/mL Normal 16-96 [facility] Comment on above: Performed By: #### C MP, BNP #### [facility] [address] [place] [address] Dr. Kamaljit Browning CBC AUTO DIFFon 12-25-2021 BASO # 0.1 103/ul Normal 0.0-0.1 [facility] Comment on above: Performed By: #### C BC #### [facility] [address] [place] [address] Dr. Kamaljit Browning Basophils/100 WBC (Bld) 0.8 % Normal 0.2-2.0 [facility] Comment on above: Performed By: #### C BC #### [facility] [address] [place] [address] Dr. Kamaljit Browning EO # 0.1 103/ul Normal 0.0-0.7 [facility] Comment on above: Performed By: #### C BC #### [facility] [address] [place] [address] Dr. Kamaljit Browning Eosinophils/100 WBC (Bld) 1.0 % Normal 0.9-7.0 [facility] Comment on above: Performed By: #### C BC #### [facility] [address] [place] [address] Dr. Kamaljit Browning Erythrocyte distribution width (RBC) [Ratio] 12.1 % Normal 11.0-15.0 [facility] Comment on above: Performed By: #### C BC #### [facility] [address] [place] [address] Dr. Kamaljit Browning Hematocrit (Bld) [Volume fraction] 42.2 % Normal 42.0-54.0 [facility] Comment on above: Performed By: #### C BC #### [facility] [address] [place] [address] Dr. Kamaljit Browning Hemoglobin (Bld) [Mass/Vol] 14.2 g/dL Normal 14.0-18.0 [facility] Comment on above: Performed By: #### C BC #### [facility] [address] [place] [address] Dr. Kamaljit Browning IG # 0.02 10e3/ul Normal 0.00-0.03 [facility] Comment on above: Performed By: #### C BC #### [facility] [address] [place] [address] Dr. Kamaljit Browning IG % 0.3 % Normal 0.0-0.5 [facility] Comment on above: Performed By: #### C BC #### [facility] [address] [place] [address] Dr. Kamaljit Browning LYMPH # 0.9 103/ul Critically low 1.2-3.8 [facility] Comment on above: Performed By: #### C BC #### [facility] [address] [place] [address] Dr. Kamaljit Browning Lymphocytes/100 WBC (Bld) 14.7 % Critically low 20.5-60.0 [facility] Comment on above: Performed By: #### C BC #### [facility] [address] [place] [address] Dr. Kamaljit Browning MANUAL DIFF REQ NO Normal [facility] Comment on above: Performed By: #### C BC #### [facility] [address] [place] [address] Dr. Kamaljit Browning MCH (RBC) [Entitic mass] 30.4 pg Normal 25.9-34.0 [facility] Comment on above: Performed By: #### C BC #### [facility] [address] [address] [address] Kamaljit Browning MCHC (RBC) [Mass/Vol] 33.6 g/dL Normal 29.9-35.2 [facility] Comment on above: Performed By: #### C BC #### [facility] [address] [address] [address] Kamaljit Browning MCV (RBC) [Entitic vol] 90.4 fL Normal 80.0-94.0 [facility] Comment on above: Performed By: #### C BC #### [facility] [address] [address] [address] Kamaljit Browning MONO # 0.4 103/ul Normal 0.3-0.8 [facility] Comment on above: Performed By: #### C BC #### [facility] [address] [place] [address] Dr. Kamaljit Browning Monocytes/100 WBC (Bld) 6.5 % Normal 1.7-12.0 [facility] Comment on above: Performed By: #### C BC #### [facility] [address] [address] [address] Kamaljit Browning NEUT # 4.6 103/ul Normal 1.4-6.5 [facility] Comment on above: Performed By: #### C BC #### [facility] [address] [place] [address] Dr. Kamaljit Browning Neutrophils/100 WBC (Bld) 76.7 % Critically high 43.0-75.0 [facility] Comment on above: Performed By: #### C BC #### [facility] [address] [address] [address] Kamaljit Browning Platelet mean volume (Bld) [Entitic vol] 12.2 fL Normal 9.5-13.5 [facility] Comment on above: Performed By: #### C BC #### [facility] [address] [place] [address] Dr. Kamaljit Browning PLT 120 103/ul Critically low 150-450 [facility] Comment on above: Performed By: #### C BC #### [facility] [address] [address] [address] Kamaljit Browning RBC 4.67 106/ul Critically low 4.70-6.10 [facility] Comment on above: Performed By: #### C BC #### [facility] [address] [address] [address] Kamaljit Browning WBC 6.0 103/ul Normal 4.0-11.0 [facility] Comment on above: Performed By: #### C BC #### [facility] [address] [address] [address] Kamaljit Browning CULTURE URINEon 12-25-2021 CULTURE URINE Culture Observations : NO GROWTH. Normal [facility] Comment on above: Performed By: #### C MP, BNP #### [facility] [address] [address] [address] Kamaljit Browning Covid-19 PCR (CVDTB)on 11-28 SARS-CoV-2 (COVID-19) RNA SOURAV+probe Ql (Unsp spec) Not detected Normal NOT DETECTED [facility] Comment on above: Result Comment: When [...] for this test is supported by the Official Court Reporter of Health and Human Service's declaration that [...] used). Performed By: #### C BC #### [facility] [address] [place] [address] Dr. Kamaljit Browning ECHOCARDIO M/2D COMPLETEon 0 12-25-2021 ECHOCARDIO M/2D COMPLETE Patient: MARTIN WEST Exam Date: 12/25/2021 : 1950 Gender:M Ordering : DR PETRA WOOTEN . Admission #: [id number] Family : DR ALAYNA KIM M.D. Order #: [id number] CLICK HERE TO VIEW EXAM ECHOCARDIOGRAM REPORT [...] Area(A4C): 22.50 cm2 Left Atrium Systolic Volume(A2C): 58231 mm3 Left Atrium Systolic Volume(A4C): 34162 mm3 Mitral Valve MV E to A Ratio: 1 Deceleration [place]: 5860 mm/s2 Mitral Valve A-Wave Peak Velocity: [...] M.D. on 12/25/2021 at 16:48 Normal [facility] MAGNESIUMon 12-25-2021 Magnesium [Mass/Vol] 2.2 mg/dL Normal 1.8-2.4 [facility] Comment on above: Performed By: #### C MP, BNP #### [facility] [address] [place] [address] Dr. Kamaljit Browning PHOSPHORUSon 12-25-2021 Phosphate [Mass/Vol] 3.2 mg/dL Normal 2.6-4.7 [facility] Comment on above: Performed By: #### C MP, BNP #### [facility] [address] [place] [address] Dr. Kamaljit Browning PROF 14(COMP METB)on 022 Albumin [Mass/Vol] 4.4 g/dL Normal 3.4-5.0 [facility] Comment on above: Performed By: #### C MP, BNP #### [facility] [address] [place] [address] Dr. Kamaljit Browning Albumin/Globulin [Mass ratio] 1.2 {ratio} Normal [facility] Comment on above: Performed By: #### C MP, BNP #### [facility] [address] [place] [address] Dr. Kamaljit Browning ALP [Catalytic activity/Vol] 95 U/L Normal 46-116 [facility] Comment on above: Performed By: #### C MP, BNP #### [facility] [address] [place] [address] Dr. Kamaljit Browning ALT [Catalytic activity/Vol] 30 U/L Normal 16-63 [facility] Comment on above: Performed By: #### C MP, BNP #### [facility] [address] [place] [address] Dr. Kamaljit Browning Anion gap [Moles/Vol] 12.0 mmol/L Normal [facility] Comment on above: Performed By: #### C MP, BNP #### [facility] [address] [place] [address] Dr. Kamaljit Browning AST [Catalytic activity/Vol] 27 U/L Normal 15-37 [facility] Comment on above: Performed By: #### C MP, BNP #### [facility] [address] [place] [address] Dr. Kamaljit Browning Bilirubin [Mass/Vol] 0.8 mg/dL Normal 0.2-1.0 [facility] Comment on above: Performed By: #### C MP, BNP #### [facility] [address] [place] [address] Dr. Kamaljit Browning Calcium [Mass/Vol] 9.1 mg/dL Normal 8.5-10.1 [facility] Comment on above: Performed By: #### C MP, BNP #### [facility] [address] [place] [address] Dr. Kamaljit Browning Chloride [Moles/Vol] 107 mmol/L Normal 98-107 [facility] Comment on above: Performed By: #### C MP, BNP #### [facility] [address] [place] [address] Dr. Kamaljit Browning CO2 [Moles/Vol] 27.6 mmol/L Normal 21.0-32.0 [facility] Comment on above: Performed By: #### C MP, BNP #### [facility] [address] [place] [address] Dr. Kamaljit Browning Creatinine [Mass/Vol] 1.01 mg/dL Normal 0.70-1.30 [facility] Comment on above: Performed By: #### C MP, BNP #### [facility] [address] [place] [address] Dr. Kamaljit Browning EGFR-AF LUXEMBOURGER >60 Normal >=60 [facility] Comment on above: Performed By: #### C MP, BNP #### [facility] [address] [place] [address] Dr. Kamaljit Browning EGFR-NON AF LUXEMBOURGER >60 Normal >=60 [facility] [facility] Comment on above: Performed By: #### C MP, BNP #### [facility] [address] [place] [address] Dr. Kamaljit Browning Globulin (S) [Mass/Vol] 3.6 g/dL Normal [facility] Comment on above: Performed By: #### C MP, BNP #### [facility] [address] [place] [address] Dr. Kamaljit Browning Glucose [Mass/Vol] 123 mg/dL Critically high 74-106 [facility] Comment on above: Performed By: #### C MP, BNP #### [facility] [address] [place] [address] Dr. Kamaljit Browning Potassium [Moles/Vol] 4.6 mmol/L Normal 3.5-5.1 [facility] Comment on above: Performed By: #### C MP, BNP #### [facility] [address] [place] [address] Dr. Kamaljit Browning Protein [Mass/Vol] 8.0 g/dL Normal 6.4-8.2 [facility] Comment on above: Performed By: #### C MP, BNP #### [facility] [address] [place] [address] Dr. Kamaljit Browning Sodium [Moles/Vol] 142 mmol/L Normal 136-145 [facility] Comment on above: Performed By: #### C MP, BNP #### [facility] [address] [place] [address] Dr. Kamaljit Browning Urea nitrogen [Mass/Vol] 12.0 mg/dL Normal 7.0-18.0 [facility] Comment on above: Performed By: #### C MP, BNP #### [facility] [address] [place] [address] Dr. Kamaljit Browning Urea nitrogen/Creatinine [Mass ratio] 11.9 mg/mg Normal [facility] Comment on above: Performed By: #### C MP, BNP #### [facility] [address] [place] [address] Dr. Kamaljit Browning PROTIMEon 12-25-2021 INR Coag (PPP) [Relative time] 3.75 {INR} Normal [facility] Comment on above: Performed By: #### P T, PTT #### [facility] [address] [place] [address] Dr. Kamaljit Browning INR GUIDELINES SEE BELOW Normal [facility] Comment on above: Result Comment: NILDA RED INR: 2.0 - 3.0 CONDITIONS NOT LISTED BELOW 2.5 - 3.5 FOR PROSTHETIC HEART VALVE REPLACEMENT 2.5 - 3.5 RECURRENT THROMBOSIS Performed By: #### P T, PTT #### [facility] [address] [place] [address] Dr. Kamaljit Browning PT Coag (PPP) [Time] 37.1 s Critically high 9.0-11.6 [facility] Comment on above: Performed By: #### P T, PTT #### [facility] [address] [place] [address] Dr. Kamaljit Browning PTTon 12-25-2021 aPTT Coag (Bld) [Time] 55.4 s Critically high 22.3-36.2 [facility] Comment on above: Performed By: #### P T, PTT #### [facility] [address] [place] [address] Dr. Kamaljit Browning T4on 12-25-2021 T4 [Mass/Vol] 8.90 ug/dL Normal 4.50-12.10 The [facility] Comment on above: Performed By: #### C MP, BNP #### [facility] [address] [place] [address] Dr. Kamaljit Browning TSHon 12-25-2021 TSH 0.778 uIU/mL Normal 0.358-3.740 The [facility] Comment on above: Performed By: #### C MP, BNP #### [facility] [address] [place] [address] Dr. Kamaljit Browning UA RANDOM W/MICROSCOPICon BACTERIA NONE SEEN Normal NONE SEEN [facility] Comment on above: Performed By: #### A 1C #### [facility] [address] [place] [address] Dr. Kamaljit Browning Bilirubin Ql (U) Negative Normal NEGATIVE [facility] Comment on above: Performed By: #### A 1C #### [facility] [address] [place] [address] Dr. Kamaljit Browning CAST NONE SEEN Normal NONE SEEN [facility] Comment on above: Performed By: #### A 1C #### [facility] [address] [place] [address] Dr. Kamaljit Browning Clarity (U) CLEAR Normal CLEAR [facility] Comment on above: Performed By: #### A 1C #### [facility] [address] [place] [address] Dr. Kamaljit Browning Color (U) LT. YELLOW Normal YELLOW [facility] Comment on above: Performed By: #### A 1C #### [facility] [address] [place] [address] Dr. Kamaljit Browning Crystals LM Nom (Urine sed) NONE SEEN Normal NONE SEEN [facility] Comment on above: Performed By: #### A 1C #### [facility] [address] [place] [address] Dr. Kamaljit Browning Epithelial cells LM Ql (Urine sed) NONE SEEN Normal NONE SEEN /RARE [facility] Comment on above: Performed By: #### A 1C #### [facility] [address] [place] [address] Dr. Kamaljit Browning Glucose Ql (U) Negative Normal NEGATIVE [facility] Comment on above: Performed By: #### A 1C #### [facility] [address] [place] [address] Dr. Kamaljit Browning Hemoglobin Ql (U) Negative Normal NEGATIVE [facility] Comment on above: Performed By: #### A 1C #### [facility] [address] [place] [address] Dr. Kamaljit Browning Ketones Ql (U) Negative Normal NEGATIVE [facility] Comment on above: Performed By: #### A 1C #### [facility] [address] [place] [address] Dr. Kamaljit Browning LEUKOCYTES Negative Normal NEGATIVE [facility] Comment on above: Performed By: #### A 1C #### [facility] [address] [place] [address] Dr. Kamaljit Browning MUCOUS NONE SEEN Normal NONE SEEN [facility] Comment on above: Performed By: #### A 1C #### [facility] [address] [place] [address] Dr. Kamaljit Browning Nitrite Ql (U) Negative Normal NEGATIVE [facility] Comment on above: Performed By: #### A 1C #### [facility] [address] [place] [address] Dr. Kamaljit Browning pH (U) 6.0 [pH] Normal 5-9 [facility] Comment on above: Performed By: #### A 1C #### [facility] [address] [place] [address] Dr. Kamaljit Browning RBC NONE SEEN Abnormal 0-2 [facility] Comment on above: Performed By: #### A 1C #### [facility] [address] [place] [address] Dr. Kamaljit Browning SPEC GRAVITY 1.010 Normal 1.005-<=1.025 [facility] Comment on above: Performed By: #### A 1C #### [facility] [address] [place] [address] Dr. Kamaljit Browning UA PROTEIN Negative Normal NEGATIVE/ TRACE [facility] Comment on above: Performed By: #### A 1C #### [facility] [address] [place] [address] Dr. Kamaljit Browning Urobilinogen Qn (U) 0.2 {Mari'U}/dL Normal 0.2 - 1. 0 [facility] Comment on above: Performed By: #### A 1C #### [facility] [address] [place] [address] Dr. Kamaljit Browning WBC NONE SEEN Normal NONE SEEN [facility] Comment on above: Performed By: #### A 1C #### [facility] [address] [place] [address] Dr. Kamaljit Browning CBC AUTO DIFFon 12-18-2021 BASO # 0.0 103/ul Normal 0.0-0.1 [facility] Comment on above: Performed By: #### C BC #### [facility] [address] [place] [address] Dr. Kamaljit Browning Basophils/100 WBC (Bld) 0.6 % Normal 0.2-2.0 [facility] Comment on above: Performed By: #### C BC #### [facility] [address] [place] [address] Dr. Kamaljit Browning EO # 0.1 103/ul Normal 0.0-0.7 [facility] Comment on above: Performed By: #### C BC #### [facility] [address] [place] [address] Dr. Kamaljit Browning Eosinophils/100 WBC (Bld) 1.1 % Normal 0.9-7.0 [facility] Comment on above: Performed By: #### C BC #### [facility] [address] [place] [address] Dr. Kamaljit Browning Erythrocyte distribution width (RBC) [Ratio] 12.5 % Normal 11.0-15.0 [facility] Comment on above: Performed By: #### C BC #### [facility] [address] [place] [address] Dr. Kamaljit Browning Hematocrit (Bld) [Volume fraction] 40.5 % Critically low 42.0-54.0 [facility] Comment on above: Performed By: #### C BC #### [facility] [address] [place] [address] Dr. Kamaljit Browning Hemoglobin (Bld) [Mass/Vol] 13.5 g/dL Critically low 14.0-18.0 [facility] Comment on above: Performed By: #### C BC #### [facility] [address] [place] [address] Dr. Kamaljit Browning IG # 0.02 10e3/ul Normal 0.00-0.03 [facility] Comment on above: Performed By: #### C BC #### [facility] [address] [place] [address] Dr. Kamaljit Browning IG % 0.3 % Normal 0.0-0.5 [facility] Comment on above: Performed By: #### C BC #### [facility] [address] [place] [address] Dr. Kamaljit Browning LYMPH # 1.0 103/ul Critically low 1.2-3.8 [facility] Comment on above: Performed By: #### C BC #### [facility] [address] [place] [address] Dr. Kamaljit Browning Lymphocytes/100 WBC (Bld) 14.8 % Critically low 20.5-60.0 [facility] Comment on above: Performed By: #### C BC #### [facility] [address] [place] [address] Dr. Kamaljit Browning MANUAL DIFF REQ NO Normal [facility] Comment on above: Performed By: #### C BC #### [facility] [address] [place] [address] Dr. Kamaljit Browning MCH (RBC) [Entitic mass] 30.3 pg Normal 25.9-34.0 [facility] Comment on above: Performed By: #### C BC #### [facility] [address] [place] [address] Dr. Kamaljit Browning MCHC (RBC) [Mass/Vol] 33.3 g/dL Normal 29.9-35.2 [facility] Comment on above: Performed By: #### C BC #### [facility] [address] [place] [address] Dr. Kamaljit Browning MCV (RBC) [Entitic vol] 91.0 fL Normal 80.0-94.0 [facility] Comment on above: Performed By: #### C BC #### [facility] [address] [place] [address] Dr. Kamaljit Browning MONO # 0.6 103/ul Normal 0.3-0.8 [facility] Comment on above: Performed By: #### C BC #### [facility] [address] [place] [address] Dr. Kamaljit Browning Monocytes/100 WBC (Bld) 9.0 % Normal 1.7-12.0 [facility] Comment on above: Performed By: #### C BC #### [facility] [address] [place] [address] Dr. Kamaljit Browning NEUT # 5.2 103/ul Normal 1.4-6.5 [facility] Comment on above: Performed By: #### C BC #### [facility] [address] [place] [address] Dr. Kamaljit Browning Neutrophils/100 WBC (Bld) 74.2 % Normal 43.0-75.0 [facility] Comment on above: Performed By: #### C BC #### [facility] [address] [place] [address] Dr. Kamaljit Browning Platelet mean volume (Bld) [Entitic vol] 12.7 fL Normal 9.5-13.5 [facility] Comment on above: Performed By: #### C BC #### [facility] [address] [address] [address] Kamaljit Browning PLT 114 103/ul Critically low 150-450 [facility] Comment on above: Performed By: #### C BC #### [facility] [address] [place] [address] Dr. Kamaljit Browning RBC 4.45 106/ul Critically low 4.70-6.10 [facility] Comment on above: Performed By: #### C BC #### [facility] [address] [place] [address] Dr. Kamaljit Browning WBC 7.0 103/ul Normal 4.0-11.0 [facility] Comment on above: Performed By: #### C BC #### [facility] [address] [place] [address] Dr. Kamaljit Browning MAGNESIUMon 12-18-2021 Magnesium [Mass/Vol] 2.1 mg/dL Normal 1.8-2.4 [facility] Comment on above: Performed By: #### C BC #### [facility] [address] [place] [address] Dr. Kamaljit Browning PROF CHEM 8 (BAS METB)on Anion gap [Moles/Vol] 13.2 mmol/L Normal [facility] Comment on above: Performed By: #### C BC #### [facility] [address] [place] [address] Dr. Kamaljit Browning Calcium [Mass/Vol] 8.7 mg/dL Normal 8.5-10.1 [facility] Comment on above: Performed By: #### C BC #### [facility] [address] [place] [address] Dr. Kamaljit Browning Chloride [Moles/Vol] 108 mmol/L Critically high 98-107 [facility] Comment on above: Performed By: #### C BC #### [facility] [address] [place] [address] Dr. Kamaljit Browning CO2 [Moles/Vol] 25.7 mmol/L Normal 21.0-32.0 [facility] Comment on above: Performed By: #### C BC #### [facility] [address] [address] [address] Kamaljit Browning Creatinine [Mass/Vol] 1.10 mg/dL Normal 0.70-1.30 [facility] Comment on above: Performed By: #### C BC #### [facility] [address] [address] [address] Kamaljit Browning EGFR-AF LUXEMBOURGER >60 Normal >=60 [facility] Comment on above: Performed By: #### C BC #### [facility] [address] [address] [address] Kamaljit Browning EGFR-NON AF LUXEMBOURGER >60 Normal >=60 [facility] Comment on above: Performed By: #### C BC #### [facility] [address] [place] [address] Dr. Kamaljit Browning Glucose [Mass/Vol] 118 mg/dL Critically high 74-106 [facility] Comment on above: Performed By: #### C BC #### [facility] [address] [place] [address] Dr. Kamaljit Browning Potassium [Moles/Vol] 3.9 mmol/L Normal 3.5-5.1 [facility] Comment on above: Performed By: #### C BC #### [facility] [address] [place] [address] Dr. Kamaljit Browning Sodium [Moles/Vol] 143 mmol/L Normal 136-145 [facility] Comment on above: Performed By: #### C BC #### [facility] [address] [place] [address] Dr. Kamaljit Browning Urea nitrogen [Mass/Vol] 12.0 mg/dL Normal 7.0-18.0 [facility] Comment on above: Performed By: #### C BC #### [facility] [address] [place] [address] Dr. Kamaljit Browning Urea nitrogen/Creatinine [Mass ratio] 10.9 mg/mg Normal [facility] Comment on above: Performed By: #### C BC #### [facility] [address] [place] [address] Dr. Kamaljit Browning PROTIMEon 12-18-2021 INR Coag (PPP) [Relative time] 2.47 {INR} Normal [facility] Comment on above: Performed By: #### C MP, BNP #### [facility] [address] [place] [address] Dr. Kamaljit Browning INR GUIDELINES SEE BELOW Normal [facility] Comment on above: Result Comment: NILDA RED INR: 2.0 - 3.0 CONDITIONS NOT LISTED BELOW 2.5 - 3.5 FOR PROSTHETIC HEART VALVE REPLACEMENT 2.5 - 3.5 RECURRENT THROMBOSIS Performed By: #### C MP, BNP #### [facility] [address] [place] [address] Dr. Kamaljit Browning PT Coag (PPP) [Time] 25.1 s Critically high 9.0-11.6 [facility] Comment on above: Performed By: #### C MP, BNP #### [facility] [address] [place] [address] Dr. Kamaljit Browning TSHon 12-18-2021 TSH 1.850 uIU/mL Normal 0.358-3.740 The [facility] Comment on above: Performed By: #### C BC #### [facility] [address] [place] [address] Dr. Kamaljit Browning BNPon 12-17-2021 Natriuretic peptide B (Bld) [Mass/Vol] 50.0 pg/mL Normal <=900.0 [facility] Comment on above: Performed By: #### A 1C #### [facility] [address] [place] [address] Dr. Kamaljit Browning CBC AUTO DIFFon 12-17-2021 BASO # 0.1 103/ul Normal 0.0-0.1 [facility] Comment on above: Performed By: #### C BC #### [facility] [address] [place] [address] Dr. Kamaljit Browning Basophils/100 WBC (Bld) 1.0 % Normal 0.2-2.0 [facility] Comment on above: Performed By: #### C BC #### [facility] [address] [place] [address] Dr. Kamaljit Browning EO # 0.1 103/ul Normal 0.0-0.7 [facility] Comment on above: Performed By: #### C BC #### [facility] [address] [place] [address] Dr. Kamaljit Browning Eosinophils/100 WBC (Bld) 1.2 % Normal 0.9-7.0 [facility] Comment on above: Performed By: #### C BC #### [facility] [address] [place] [address] Dr. Kamaljit Browning Erythrocyte distribution width (RBC) [Ratio] 12.4 % Normal 11.0-15.0 [facility] Comment on above: Performed By: #### C BC #### [facility] [address] [place] [address] Dr. Kamaljit Browning Hematocrit (Bld) [Volume fraction] 43.8 % Normal 42.0-54.0 [facility] Comment on above: Performed By: #### C BC #### [facility] [address] [place] [address] Dr. Kamaljit Browning Hemoglobin (Bld) [Mass/Vol] 14.4 g/dL Normal 14.0-18.0 [facility] Comment on above: Performed By: #### C BC #### [facility] [address] [place] [address] Dr. Kamaljit Browning IG # 0.02 10e3/ul Normal 0.00-0.03 [facility] Comment on above: Performed By: #### C BC #### [facility] [address] [place] [address] Dr. Kamaljit Browning IG % 0.3 % Normal 0.0-0.5 [facility] Comment on above: Performed By: #### C BC #### [facility] [address] [place] [address] Dr. Kamaljit Browning LYMPH # 1.1 103/ul Critically low 1.2-3.8 [facility] Comment on above: Performed By: #### C BC #### [facility] [address] [place] [address] Dr. Kamaljit Browning Lymphocytes/100 WBC (Bld) 18.5 % Critically low 20.5-60.0 [facility] Comment on above: Performed By: #### C BC #### [facility] [address] [place] [address] Dr. Kamaljit Browning MANUAL DIFF REQ NO Normal [facility] Comment on above: Performed By: #### C BC #### [facility] [address] [place] [address] Dr. Kamaljit Browning MCH (RBC) [Entitic mass] 30.2 pg Normal 25.9-34.0 [facility] Comment on above: Performed By: #### C BC #### [facility] [address] [place] [address] Dr. Kamaljit Browning MCHC (RBC) [Mass/Vol] 32.9 g/dL Normal 29.9-35.2 [facility] Comment on above: Performed By: #### C BC #### [facility] [address] [place] [address] Dr. Kamaljit Browning MCV (RBC) [Entitic vol] 91.8 fL Normal 80.0-94.0 [facility] Comment on above: Performed By: #### C BC #### [facility] [address] [place] [address] Dr. Kamaljit Browning MONO # 0.4 103/ul Normal 0.3-0.8 [facility] Comment on above: Performed By: #### C BC #### [facility] [address] [place] [address] Dr. Kamaljit Browning Monocytes/100 WBC (Bld) 7.4 % Normal 1.7-12.0 [facility] Comment on above: Performed By: #### C BC #### [facility] [address] [place] [address] Dr. Kamaljit Browning NEUT # 4.1 103/ul Normal 1.4-6.5 [facility] Comment on above: Performed By: #### C BC #### [facility] [address] [place] [address] Dr. Kamaljit Browning Neutrophils/100 WBC (Bld) 71.6 % Normal 43.0-75.0 [facility] Comment on above: Performed By: #### C BC #### [facility] [address] [place] [address] Dr. Kamaljit Browning Platelet mean volume (Bld) [Entitic vol] 12.4 fL Normal 9.5-13.5 [facility] Comment on above: Performed By: #### C BC #### [facility] [address] [place] [address] Dr. Kamaljit Browning PLT 111 103/ul Critically low 150-450 [facility] Comment on above: Performed By: #### C BC #### [facility] [address] [place] [address] Dr. Kamaljit Browning RBC 4.77 106/ul Normal 4.70-6.10 [facility] Comment on above: Performed By: #### C BC #### [facility] [address] [place] [address] Dr. Kamaljit Browning WBC 5.8 103/ul Normal 4.0-11.0 [facility] Comment on above: Performed By: #### C BC #### [facility] [address] [place] [address] Dr. Kamaljit Browning Covid-19 PCR ([facility])on 11-28 SARS-CoV-2 (COVID-19) RNA SOURAV+probe Ql (Unsp spec) Not detected Normal NOT DETECTED [facility] Comment on above: Result Comment: When [...] for this test is supported by the Official Court Reporter of Health and Human Service's declaration that [...] Performed By: #### C MP, BNP #### [facility] [address] [place] [address] Dr. Kamaljit Browning PROF 14(COMP METB)on 022 Albumin [Mass/Vol] 4.3 g/dL Normal 3.4-5.0 [facility] Comment on above: Performed By: #### A 1C #### [facility] [address] [place] [address] Dr. Kamaljit Browning Albumin/Globulin [Mass ratio] 1.2 {ratio} Normal [facility] Comment on above: Performed By: #### A 1C #### [facility] [address] [place] [address] Dr. Kamaljit Browning ALP [Catalytic activity/Vol] 115 U/L Normal 46-116 [facility] Comment on above: Performed By: #### A 1C #### [facility] [address] [place] [address] Dr. Kamaljit Browning ALT [Catalytic activity/Vol] 35 U/L Normal 16-63 [facility] Comment on above: Performed By: #### A 1C #### [facility] [address] [place] [address] Dr. Kamaljit Browning Anion gap [Moles/Vol] 15.0 mmol/L Normal [facility] Comment on above: Performed By: #### A 1C #### [facility] [address] [place] [address] Dr. Kamaljit Browning AST [Catalytic activity/Vol] 26 U/L Normal 15-37 [facility] Comment on above: Performed By: #### A 1C #### [facility] [address] [place] [address] Dr. Kamaljit Browning Bilirubin [Mass/Vol] 0.5 mg/dL Normal 0.2-1.0 [facility] Comment on above: Performed By: #### A 1C #### [facility] [address] [place] [address] Dr. Kamaljit Browning Calcium [Mass/Vol] 8.6 mg/dL Normal 8.5-10.1 [facility] Comment on above: Performed By: #### A 1C #### [facility] [address] [place] [address] Dr. Kamaljit Browning Chloride [Moles/Vol] 106 mmol/L Normal 98-107 [facility] Comment on above: Performed By: #### A 1C #### [facility] [address] [place] [address] Dr. Kamaljit Browning CO2 [Moles/Vol] 24.0 mmol/L Normal 21.0-32.0 [facility] Comment on above: Performed By: #### A 1C #### [facility] [address] [place] [address] Dr. Kamaljit Browning Creatinine [Mass/Vol] 1.02 mg/dL Normal 0.70-1.30 [facility] Comment on above: Performed By: #### A 1C #### [facility] [address] [place] [address] Dr. Kamaljit Browning EGFR-AF LUXEMBOURGER >60 Normal >=60 [facility] Comment on above: Performed By: #### A 1C #### [facility] [address] [place] [address] Dr. Kamaljit Browning EGFR-NON AF LUXEMBOURGER >60 Normal >=60 [facility] Comment on above: Performed By: #### A 1C #### [facility] [address] [place] [address] Dr. Kamaljit Browning Globulin (S) [Mass/Vol] 3.5 g/dL Normal [facility] Comment on above: Performed By: #### A 1C #### [facility] [address] [place] [address] Dr. Kamaljit Browning Glucose [Mass/Vol] 138 mg/dL Critically high 74-106 [facility] Comment on above: Performed By: #### A 1C #### [facility] [address] [place] [address] Dr. Kamaljit Browning Potassium [Moles/Vol] 4.0 mmol/L Normal 3.5-5.1 [facility] Comment on above: Performed By: #### A 1C #### [facility] [address] [address] [address] Kamaljit Browning Protein [Mass/Vol] 7.8 g/dL Normal 6.4-8.2 [facility] Comment on above: Performed By: #### A 1C #### [facility] [address] [address] [address] Kamaljit Browning Sodium [Moles/Vol] 141 mmol/L Normal 136-145 [facility] Comment on above: Performed By: #### A 1C #### [facility] [address] [address] [address] Kamaljit Browning Urea nitrogen [Mass/Vol] 13.0 mg/dL Normal 7.0-18.0 [facility] Comment on above: Performed By: #### A 1C #### [facility] [address] [address] [address] Kamaljit Browning Urea nitrogen/Creatinine [Mass ratio] 12.7 mg/mg Normal [facility] Comment on above: Performed By: #### A 1C #### [facility] [address] [address] [address] Kamaljit Browning TROPONIN, HIGH SENSITIVITYon 12-17-2021 HSTROP 11.1 pg/mL Normal 4.0-76.1 [facility] Comment on above: Result Comment: CUT- OFF POINTS HAVE BEEN ESTABLISHED BASED ON THE FOURTH UNIVERSAL DEFINITIONS OF MYOCARDIAL INFARCTION. THE UPPER REFERENCE LIMIT (URL) OF TROPONIN, DEFINED THE 99TH PERCENTILE OF cTnI DISTRIBUTION IN A REFERENCE POPULATION, HAS BEEN CONFIRMED THE DECISION THRESHOLD FOR [place] DIAGNOSIS. Performed By: #### A 1C #### [facility] [address] [place] [address] Dr. Kamaljit Browning Vital Signs Date Time Vital Sign Value Performing Clinician Perez ortiz 03-18-2023 14:09-0400 Blood Pressure Location Leo TATE [facility] 03-18-2023 14:09-0400 Diastolic blood pressure 86 mm[Hg] Leo TATE [facility] 03-18-2023 14:090400 Heart rate 70 /min Leo NILL [facility] 03-18-2023 14:090400 Respiratory rate 16 /min Leo NILL [facility] 03-18-2023 14:090400 Systolic blood pressure 130 mm[Hg] Leo NILL [facility] Encounters Encounter Date Encounter Type Care Provider Facility Start: 03-01-2024 End: 03-01-2024 ambulatory [facility] Start: 02-01-2024 End: 02-01-2024 ambulatory [facility] Start: 04-08-2023 End: 04-09-2023 ambulatory Leo R NILL Facility:CD:[id number] Start: 03-18-2023 End: 03-19-2023 ambulatory Leo R NILL Facility:[facility] Start: 03-18-2023 End: 03-18-2023 Patient encounter procedure Leo R NILL [facility] Start: 03-18-2023 End: 03-18-2023 ambulatory [facility] Start: 03-06-2023 ambulatory Leo ADAMSL Facility:[facility] Start: 03-05-2023 ambulatory Leo ADAMSL Facility:[facility] Start: 11-14-2022 End: 11-15-2022 ambulatory [...] 05-29-2022 End: 06-29-2022 ambulatory SHAIKH Juan Luis ROBERTSSowmya Facility:[facility] Start: 04-29-2022 End: 05-28-2022 ambulatory SHAIKH Juan Luis ROBERTSSowmya Facility:[facility] Start: 03-30-2022 End: 04-28-2022 ambulatory DIEZSHIRLENE MANESHIRLEY Facility:[facility] Start: 03-12-2022 End: 03-13-[address] PETRA WOOTEN . Facility:[facility] Start: 02-27-2022 End: 03-29-2022 ambulatory SHAIKH Juan Luis MANESHIRLEY Facility:[facility] Start: 01-27-2022 End: 02-26-2022 ambulatory DIEZ H LUCIANSharriSHIRLEY Facility:[facility] Start: 12-27-2021 End: 01-24-[address] PETRA WOOTEN . Facility:[facility] Start: 12-25-2021 End: 12-26-[address] PETRA WOOTEN . Facility:[facility] Start: 12-17-2021 End: 12-18-2021 Evaluation and management of inpatient DR PETRA WOOTEN . Facility: Procedures Date Procedure Procedure Detail Performing Clinician Start: 11-14-[address] LIZZIE WOOTEN . Comment on above: Performed By: #### C MP, BNP #### [facility] [address] [place] [address] Dr. Kamaljit Browning Start: 03-17-2018 Colonoscopy Leo KOGN Start: 08-28-2011 Replacement of aorti c valve Leo TATE Immunizations Immunization Date Immunization Notes Care Provider Fa cili 04-03-2022 SARS-CoV-2 (COVID-19 ) [id number] Leo TATE [facility] 12-02-2021 SARS-CoV-2 mRNA (sxbisnciuxq-hhnv-lmmjw se) vaccine Leo TATE [facility] 03-23-2021 SARS-CoV-2 (COVID-19 ) mRNA BNT-162b2 vax Leo TATE [facility] Comment on above: Result Comment: 2022: [id number] 08-30-2020 SARS-CoV-2 (COVID-19 ) mRNA BNT-162b2 vax Leo TATE [facility] Comment on above: Result Comment: 2022: [id number] 08-09-2020 SARS-CoV-2 (COVID-19 ) mRNA BNT-162b2 vax Leo TATE [facility] Comment on above: Result Comment: 2022: [id number] Payers Date Payer Category Payer Unknown [id number] 1957 Medicare [id number] 1957 Unknown [id number] 1959 Unknown [id number] 1950 Unknown [id number] 2.16.84 0.1.653678.3.579.2.593 1950 Unknown [id number] 2.16.84 0.1.296670.3.579.2.593 1952 Unknown [id number] 2.16.84 0.1.063865.3.579.2.593 1952 Unknown [id number] 2.16.84 0.1.632755.3.579.2.593 1952 Unknown [id number] 2.16.84 0.1.299282.3.579.2.593 1952 Unknown [id number] 2.16.84 0.1.385226.3.579.2.593 1952 Unknown [id number] 2.16.84 0.1.167610.3.579.2.593 1952 Unknown [id number] 2.16.84 0.1.362927.3.579.2.593 1952 Unknown [id number] 2.16.84 0.1.708597.3.579.2.593 1952 Unknown [id number] 2.16.84 0.1.032696.3.579.2.593 1952 Unknown [id number] 2.16.84 0.1.340204.3.579.2.593 1952 Unknown [id number] 2.16.84 0.1.271820.3.579.2.593 1952 Unknown [id number] 2.16.84 0.1.400177.3.579.2.593 1952 Unknown [id number] 2.16.84 0.1.726979.3.579.2.593 1952 Unknown [id number] 2.16.84 0.1.651859.3.579.2.593 1952 Unknown [id number] 2.16.84 0.1.974697.3.579.2.593 1952 Unknown [id number] 2.16.84 0.1.395365.3.579.2.593 1952 Unknown [id number] 2.16.8 40.1.489480.3.579.2.727 1952 Unknown [id number] 2.16.8 40.1.552998.3.579.2.727 1950 Unknown [id number] 2.16.8 40.1.124709.3.579.2.727 Social History Date Type Detail Facility Start: 03-18-2023 Tobacco smoking status Ex-smoker (fi nding) [facility] Tobacco smoking status Never [facility] Sex Assigned At Male [facility] Functional Status Date Assessment Result Facility 03-18-2023 Functional Status N/A [facility] Progress note 03-01-2024 Note Date & Type Note Facility 03-01-2024 Note [facility] Cardiology Clinic Note Chief Complaint: Patient here [...] Conclusion: 1. L (more content not included)... [facility] Progress note 02-01-2024 Note Date & Type Note Facility 02-01-2024 Note car [facility] Progress note 02-01-2024 Note Date & Type Note Facility 02-01-2024 Note [facility] Cardiology Clinic Note Chief Complaint: Patient here [...] - MILD I25.10: Atherosclerotic heart disease of [place] coronary artery without angina pectoris 3. Essential hypertension - Established (stable) I10: Essential (primary) hypertensio (more content not included)... [facility] Clinical Note 04-01-2023 Note Date & Type Note Facility 04-01-2023 Note [id number] #1.00CD:127 Kiana from [facility] called stating he is ok to hold coumadin 4 days before procedure and will not need bridged, she will call pt tp inform him [facility] Comment on above: Result Comment: Elec tronically [...] He had yearly check up with Dr. Kim this morning. Last colonoscopy completed 02/2018 with [...] held; Unasyn preop for SBE prophylaxis. 2. 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 [facility] Comment on above: Result Comment: Elec tronically Signed By: BEBETO RODRIGUES, Leo Monae\Date and Time Signed: 03/18/23 14:47 EDT Progress note 03-18-2023 Note Date & Type Note Facility 03-18-2023 Note [facility] Cardiology Clinic Note Chief Complaint: Patient here [...] - MILD I25.10: Atherosclerotic heart disease of [place] coronary artery without angina pectoris 3. Essential [...] year or sooner should problems arise Alayna Kim MD, MPH, [facility], [facility], [facility] Interventional Cardiology Pager Email: [email or web address] + Plan note Note Date & Type Note Facility Evaluation + Plan note No data available for this section [facility] Discharge instructions Note Date & Type Note Facility Hospital Discharge instructions No data available for this section [facility] Progress note Note Date & Type Note Facility Progress note No data available for this section [facility] Summary Purpose Family History No Family History Records FoundNo Family History Records FoundNo Family History Records Found Advance Directives No Advanced Directives Records FoundNo Advanced Directives Records FoundNo Advanced Directives Records Found Additional Source Comments (unrecognized sect ion and content) No Status Records FoundNo Status Records FoundNo Status Records Found INFORMATION SOURCE (unrecogn ized section and content) DATE CREATED AUTHOR 12/05/2022 [facility] DATE CREATED AUTHOR AUTHOR'S ORGANIZ ATION 04/28/2023 [facility] DATE CREATED AUTHOR AUTHOR'S ORGANIZ ATION 03/09/2024 [facility] Patient Care team informatio n (unrecognized section and content) Personnel Name: Petra Wooten MD Address: Address: [address] [place] [address] FOR RECORDS PERTAINING TO PATIENTS WHO ARE [...] BE BASED ON THE PRIMARY CLINICAL RECORDS. [employer] [facility]. provides no warranty or guarantee of the accuracy or completeness of information in this document.
== END 2024-03-28 08:51 | disposition home or self-care (01) ==
LOC: US 08:50
PROVIDERS: PCP Family Medicine; Visit Provider Family Medicine
DX: G45.8 Other transient cerebral ischemic attacks and related syndromes (principal)
CPT/HCPCS: 93930

== ENCOUNTER 2024-03-29 02:38 | Outpatient (RCR) | payer MEDICARE, SELFPAY | END 2024-04-28 23:33 | disposition home or self-care (01) | LOC: MM 02:38 | PROVIDERS: PCP Family Medicine; Visit Provider Internal Medicine | DX: Z51.81 Encounter for therapeutic drug level monitoring (principal); Z79.01 Long term (current) use of anticoagulants; I48.91 Unspecified atrial fibrillation | CPT/HCPCS: 85610; G0463 ==

== ENCOUNTER 2024-04-27 08:27 | Outpatient (OUT) | payer MEDICARE, SELFPAY ==
--- NOTE | 2024-04-27 08:42 | MR_ITS ---
The [address] [address] Patient Name: JOSE WEST MRN: [id number] date: 1950 Sex: M Assigned Patient Location: LAB Current Patient Location: Accession/Order Number: [id number] Exam Date: 04/27/2024 08:55 Report Date: 04/28/2024 09:06 At the request of: GERARDO PETERSEN Procedure: MR head/brain wo/w con MR head/brain wo/w con, 04/27/2024 8:55 AM EDT INDICATION: Abnormal CT Of Head, Balance Disorder COMPARISON: Prior CTA of the head dated 03/04/2024 TECHNIQUE: Multiplanar, multisequential MRI images of brain were obtained without and with injection of contrast. FINDINGS: The cerebral sulci as well as ventricular system are appropriate for age. There is no restricted diffusion. A cystic lesion anterior to the left temporal lobe is noted measuring approximately 2.9 x 3.8 cm (transverse, AP) most likely consistent with an arachnoid cyst. There is an intraparenchymal multilobular cystic lesion with no enhancement epicentered within the left basal ganglia and insula extending to the pollard radiata of the left frontal lobe measuring approximately 4.8 x 6.4 x 4 cm (SI, AP, transverse). There is T2 FLAIR hyperintensity superior to this lesion with no evidence of blooming artifacts suggesting of hemorrhage. Hyperintensities on T2 and FLAIR images in the pollard radiata and centrum semiovale with sparing of U fibers are nonspecific, statistically most likely consistent with mild microvascular ischemic changes. There is no midline shift, or large hemorrhage. Few foci of hemosiderin deposition within the frontal lobes is noted. Normal flow-void in the intracranial vessels is noted. The visualized portions of orbits, mastoid air cells as well as paranasal sinuses are unremarkable. MR/MR head/brain wo/w con IMPRESSION: No acute intracranial process is noted. 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 Low-grade glioma is less likely due to lack of injection of contrast. However, follow-up with MRI in 6 month is recommended to ensure stability. Left temporal arachnoid cyst. Electronically authenticated by: DEACON Mayes: 04/28/2024 09:06
--- OUTSIDE RECORDS SUMMARY | 2024-04-27 08:45 | XMS_ITS | CCD ---
Author Organization [facility] Care Team Providers Care Quiller Operator Name Role Phone SUGAR ., DR LAMBERT [...] ., DR LAMBERT Primary Care Unavailable SHAIKH HENDERSON Juan Luis Attending Unavailable SUGAR ., DR LAMBERT Primary Care Unavailable JACKIE, DR AMBROSIO Boggs Consulting Unavailaaron e JACKIE, DR AMBROSIO Boggs Attending Unavailabl [...] Unavailable HOY ., DR LAMBERT Attending Unavailable RUTHERFORD, DR LISBET Santamaria Consulting Unavailable GAGE CARTER Consulting Unavailable HOY ., DR LAMBERT Primary Care Unavailable HOY ., DR LAMBERT Admitting Unavailable HOY ., DR LAMBERT Consulting Unavailable HOY ., DR LAMBERT Attending Unavailable HOY ., DR LAMBERT Primary Care Unavailable ELTAHAWJessica, DR FLEMING Consulting Unavailable ELTAMASON, DR FLEMING Attending Unavailable JULIO, DR FLEMING Admitting Unavailable Petra Wooten Primary Care Physician Leo TATE Attending Unavailable Leo TATE Attending Unavailable [facility] ALAYNA Attending Unavailable [facility] ALAYNA Attending Unavailable [facility] ALAYNA Attending Unavailable Unavailable Primary Care Provider UnavailPetra Santa MD Primary Care Provider [phone] Alayna Kim MD Unavailable GERARDO PETERSEN Attending Unavailable Allergies Allergy Classification Reported Allergen(s) Allergy Type Date of Onset Reaction(s) Facility (1 source) No Known Medication Allergies; Translations: [No Known Medication Allergies] Propensity to adverse reactions (disorder) [facility] Medications Current Medications Medication Drug Class(es) Dates Sig (Normalized) Sig (Original) aspirin 81 mg delayed release oral tablet (1 source) Platelet Aggregation Inhibitor, Nonsteroidal Anti-inflammatory Drug Start: 03-13-2023 take 1 tablet by mouth once daily aspirin 81 mg Oral EC Tab 81 mg = 1 tab(s), Oral, Daily, Refills(s) 0 Start Date: 03/13/23 Status: Ordered carvedilol 25 mg oral tablet (3 sources) alpha-Adrenergic Benja, beta-Adrenergic Benja Start: 03-13-2023 take [...] Status: Ordered chlorthalidone 25 mg oral tablet (3 sources) Thiazide-like Diuretic Start: 02-01-2024 End: 01-31-2025 take 1 tablet by mouth every other day chlorthalidone (Hygroton) 25 MG tablet Take 25 mg by mouth every other day 02/01/2024 01/31/2025 Active Start: 03-13-2023 take 1 tablet by durga once daily chlorthalidone 25 mg Tab 25 mg = 1 tab(s), Oral, Daily, Refills(s) 0 Start Date: 03/13/23 Status: Ordered citalopram 20 mg oral tablet (3 sources) Serotonin Reuptake Inhibitor Start: 03-18-2023 take 1 tablet by mouth once daily CeleXA 20 mg Tab 20 mg = 1 tab(s), Oral, Daily, Refills(s) 0 Start Date: 03/18/23 Status: Ordered cloNIDine hydrochloride 0.1 mg oral tablet (3 sources) Central alpha-2 Adrenergic Agonist Start: 03-13-2023 take 1 tablet by mouth three times daily cloNIDine 0.1 mg tab 0.1 mg = 1 tab(s), Oral, TID, Refills(s) 0 Start Date: 03/13/23 Status: Ordered doxazosin 8 mg oral tablet (3 sources) alpha-Adrenergic Benja Start: 03-13-2023 take 1 tablet by mouth once daily doxazosin 8 mg oral tablet 8 mg = 1 tab(s), Oral, Daily, Refills(s) 0 Start Date: 03/13/23 Status: Ordered gemfibrozil 600 mg oral tablet (3 sources) Peroxisome Proliferator Receptor alpha Agonist Start: 03-13-2023 take 1 tablet by mouth twice daily Lopid 600 mg Tab 600 mg = 1 tab(s), Oral, BID, Refills(s) 0 Start Date: 03/13/23 Status: Ordered glimepiride 1 mg oral tablet (2 sources) Sulfonylurea Start: 04-12-2024 take 1 tablet by mouth before mealtime glimepiride (Amaryl) 1 MG tablet Take 1 mg by mouth in the morning. Take before meals. 04/12/2024 Active lisinopril 40 mg oral tablet (3 sources) Angiotensin Converting Enzyme Inhibitor Start: 03-13-2023 take 1 tablet by mouth once daily lisinopril 40 mg Tab 40 mg = 1 tab(s), Oral, Daily, Refills(s) 0 Start Date: 03/13/23 Status: Ordered pantoprazole 40 mg delayed release oral tablet (3 sources) Proton Pump Inhibitor Start: 03-13-2023 take 1 tablet by mouth once daily Pantoprazole [address] Tab 40 mg = 1 tab(s), Oral, Daily, Refills(s) 0 Start Date: 03/13/23 Status: Ordered rosuvastatin calcium 40 mg oral tablet (2 sources) HMG-CoA Reductase Inhibitor Start: 02-01-2024 End: 01-31-2025 take 1 tablet by mouth in the morning rosuvastatin (Crestor) 40 MG tablet Take 40 mg by mouth in the morning. 02/01/2024 01/31/2025 Active simvastatin 40 mg oral tablet (1 source) HMG-CoA Reductase Inhibitor Start: 03-13-2023 take 1 tablet by mouth once daily in the evening simvastatin 40 mg Tab 40 mg = 1 tab(s), Oral, qPM, Refills(s) 0 Start Date: 03/13/23 Status: Ordered warfarin sodium 4 mg oral tablet (3 sources) Vitamin K Antagonist Start: 03-13-2023 warfarin 4 mg Tab 4 mg = 1 tab(s), Oral, as directed, Refills(s) 0 Start Date: 03/13/23 Status: Ordered Problems Active Problems Problem Classification Problem Date Documented Da te Episodic/Chronic Chronic obstructive pulmonary disease and bronchiectasis (2 sources) Chronic obstructive pulmonary disease, unspecified; Translations: [Chronic obstructive lung disease] Onset: 01-01-2022 03-13-2023 Chronic Conditions associated with dizziness or vertigo (4 sources) Dizziness and giddiness; Translations: [Postural dizziness] Onset: 02-01-2024 Episodic Congestive heart failure; nonhypertensive [...] metabolism (5 sources) Hyperlipidemia, unspecified; Translations: [Pure hypercholesterolemia, unspecified] Onset: 06-11-2022 03-13-2023 Chronic Diverticulosis and [...] 01-01-2022 Episodic Other aftercare (1 source) terminal worker (current) use of anticoagulants; Translations: [SENIOR RECEPTIONIST CURRNT USE ANTICOAGULANTS] Onset: 11-26-2022 Episodic Other aftercare (2 sources) Long-term current use of anticoagulant; Translations: [terminal worker (current) use of anticoagulants] Onset: 03-18-2023 Episodic Other and ill-defined cerebrovascular disease (2 sources) Cerebrovascular and spinal vascular disorders; Translations: [Cerebrovascular disease, unspecified] 04-18-2024 Chronic Other and ill-defined heart disease (1 source) Cardiomegaly 03-13-2023 Chronic Other circulatory disease (1 source) Carotid bruit 03-13-2023 Episodic Other gastrointestinal disorders (1 source) Abnormal feces; Translations: [Other fecal abnormalities] Onset: 03-18-2023 Episodic Other gastrointestinal disorders (1 source) Occult blood in stools 03-13-2023 Episodic Other nervous system disorders (4 sources) Impairment of balance; Translations: [Other abnormalities of gait and mobility] 04-18-2024 Episodic Other nervous system disorders (2 sources) Numbness and tingling sensation of skin; Translations: [Anesthesia of skin] 04-18-2024 Episodic Other nutritional; endocrine; and metabolic disorders [...] conditions (not mental disorders or infectious disease) (6 sources) Encounter for screening for malignant neoplasm of prostate; Translations: [Encounter for screening for malignant neoplasm of rectum] Onset: 11-17-2022 04-18-2024 Episodic Residual codes; unclassified (1 source) Sleep apnea 03-13-2023 Chronic Residual codes; unclassified (3 sources) Obstructive sleep apnea syndrome; Translations: [Obstructive sleep apnea (adult) (pediatric)] Onset: 04-06-2024 04-06-2024 Chronic Residual codes; unclassified (3 sources) Hypersomnia; Translations: [Hypersomnia, unspecified] Onset: 04-06-2024 04-06-2024 Chronic Substance-related disorders (1 source) Nicotine dependence [...] 06-08-2022 Episodic Other aftercare (1 source) Other buttermilk drier operator (current) drug therapy; Translations: [OTH SENIOR RECEPTIONIST CURRENT DRUG THERAPY] Onset: 06-11-2022 Episodic Other aftercare (1 source) terminal worker (current) use of aspirin; Translations: [SENIOR RECEPTIONIST CURRENT USE OF ASPIRIN] Onset: 01-01-2022 Episodic [...] will send referral to [facility] in [place]. Patient verbalized understanding and agrees to referral. Normal [facility] Office Visiton 03-01-2024 Follow-up visit [id number] Martin West 1950 Date Provider Department Center 03/01/2024 271-ELTAHAWALAYNA Lopez Family History Problem Relation Age of Onset No Known Problems Mother No Known Problems Father Family Status - Relation Status Age at Mother Father Level of Service:22629 [place] OFFICE/OUTPATIENT ESTABLISHED MOD MDM 30 MIN [facility] 36on 02-24-2024 36 Spoke with patient and informed him of results. He is scheduled for follow up with Dr. Kim on 03/01 and would like to discuss things with him then. [facility] 36on 02-22-2024 36 Regarding stress bro t from 02/17/2024: MD Sophy Breaux MA Please reassure the patient that his stress test was nonischemic Thank you Dr. Kim, were you able to also review his carotid US and echo from last week? [facility] 36on 02-17-2024 36 I just scanned in patient's lipid and liver profiles that were drawn this morning. I believe you wanted them done in Apr. Can you review them and I'll also let the patient know they'll need to be repeated in 3 months if you still want them. Thanks! [facility] Follow-Upon 02-01-2024 Follow-Up [id number] Martin West 1950 M Date Provider Department Center 02/01/2024 Sandra-ALAYNA KIM Family History Problem Relation Age of Onset No Known Problems Mother No Known Problems Father Family Status - Relation Status Age at Mother Father Level of Service:34029 [place] OFFICE/OUTPATIENT ESTABLISHED MOD MDM 30 MIN [facility] Outside Colonoscopyon 2022 Outside Colonoscopy [id number] .[id number] [facility] Reminderson 04-09-2023 Reminders - From: Karlene Stewart LPN To: N - Clinical; Sent: 04/09/2023 10:49:10 EDT Show up: 03/09/2033 07:00:00 EDT Subject: colonoscopy recall Due Date/Time: 04/08/2033 07:00:00 EDT Reminder/Recall Patient due for screening colonoscopy 04/08/2033. Normal [facility] Consent for Procedure/Surger yon 03-19-2023 Consent for Procedure/Surgery [id number]# 1.00CD:127 Normal [facility] Facesheeton 03-19-2023 Facesheet [id number]# 1.00CD:127 Normal [facility] Ambulatory Visit Summaryon 0 03-18-2023 Ambulatory Visit Summary MARTIN WEST :1950 Visit Date:03/18/2023 Ambulatory Visit Instructions Your Diagnosis Fecal occult blood test positive long-term current use of anticoagulant Your Care Team [...] of myocardial infarction Hyperlipidemia Internal hemorrhoids terminal worker current use of anticoagulant Morbid obesity Sleep apnea Historical - Any problem that you are no longer receiving treatment for. Nicotine dependence Normal [facility] Office Visiton 03-18-2023 Follow-up visit [id number] Martin West 1950 M Date Provider Department Center 03/18/2023 271-ALAYNA KIM [facility] No family history on file Level of Service:97904 [place] OFFICE/OUTPATIENT ESTABLISHED LOW MDM 20-29 MIN Normal [facility] Physician Referralon 023 Physician Referral [id number]. 00CD:127 Normal [facility] INSULINon 11-15-2022 Insulin 20.3 uIU/mL Normal 2.6-24.9 [facility] Comment on above: Performed By: #### I NSULIN #### [facility] [address] [place] [address] Dr. Kamaljit Browning CBC AUTO DIFFon 11-14-2022 BASO # 0.0 103/ul Normal 0.0-0.1 [facility] Comment on above: Performed By: #### C MP, BNP #### [facility] [address] [place] [address] Dr. Kamaljit Browning Basophils/100 WBC (Bld) 0.8 % Normal 0.2-2.0 [facility] Comment on above: Performed By: #### C MP, BNP #### [facility] [address] [place] [address] Dr. Kamaljit Browning EO # 0.1 103/ul Normal 0.0-0.7 [facility] Comment on above: Performed By: #### C MP, BNP #### [facility] [address] [place] [address] Dr. Kamaljit Browning Eosinophils/100 WBC (Bld) 1.7 % Normal 0.9-7.0 [facility] Comment on above: Performed By: #### C MP, BNP #### [facility] [address] [place] [address] Dr. Kamaljit Browning Erythrocyte distribution width (RBC) [Ratio] 12.7 % Normal 11.0-15.0 [facility] Comment on above: Performed By: #### C MP, BNP #### [facility] [address] [place] [address] Dr. Kamaljit Browning Hematocrit (Bld) [Volume fraction] 38.4 % Critically low 42.0-54.0 [facility] Comment on above: Performed By: #### C MP, BNP #### [facility] [address] [place] [address] Dr. Kamaljit Browning Hemoglobin (Bld) [Mass/Vol] 12.8 g/dL Critically low 14.0-18.0 [facility] Comment on above: Performed By: #### C MP, BNP #### [facility] [address] [place] [address] Dr. Kamaljit Browning IG # 0.02 10e3/ul Normal 0.00-0.03 [facility] Comment on above: Performed By: #### C MP, BNP #### [facility] [address] [place] [address] Dr. Kamaljit Browning IG % 0.4 % Normal 0.0-0.5 [facility] Comment on above: Performed By: #### C MP, BNP #### [facility] [address] [place] [address] Dr. Kamaljit Browning LYMPH # 0.8 103/ul Critically low 1.2-3.8 [facility] Comment on above: Performed By: #### C MP, BNP #### [facility] [address] [place] [address] Dr. Kamaljit Browning Lymphocytes/100 WBC (Bld) 15.2 % Critically low 20.5-60.0 [facility] Comment on above: Performed By: #### C MP, BNP #### [facility] [address] [place] [address] Dr. Kamaljit Browning MANUAL DIFF REQ NO Normal [facility] Comment on above: Performed By: #### C MP, BNP #### [facility] [address] [place] [address] Dr. Kamaljit Browning MCH (RBC) [Entitic mass] 30.6 pg Normal 25.9-34.0 [facility] Comment on above: Performed By: #### C MP, BNP #### [facility] [address] [place] [address] Dr. Kamaljit Browning MCHC (RBC) [Mass/Vol] 33.3 g/dL Normal 29.9-35.2 [facility] Comment on above: Performed By: #### C MP, BNP #### [facility] [address] [place] [address] Dr. Kamaljit Browning MCV (RBC) [Entitic vol] 91.9 fL Normal 80.0-94.0 [facility] Comment on above: Performed By: #### C MP, BNP #### [facility] [address] [place] [address] Dr. Kamaljit Browning MONO # 0.5 103/ul Normal 0.3-0.8 [facility] Comment on above: Performed By: #### C MP, BNP #### [facility] [address] [place] [address] Dr. Kamlajit Browning Monocytes/100 WBC (Bld) 8.9 % Normal 1.7-12.0 [facility] Comment on above: Performed By: #### C MP, BNP #### [facility] [address] [place] [address] Dr. Kamaljit Browning NEUT # 3.8 103/ul Normal 1.4-6.5 [facility] Comment on above: Performed By: #### C MP, BNP #### [facility] [address] [place] [address] Dr. Kamaljit Browning Neutrophils/100 WBC (Bld) 73.0 % Normal 43.0-75.0 [facility] Comment on above: Performed By: #### C MP, BNP #### [facility] [address] [place] [address] Dr. Kamaljit Browning Platelet mean volume (Bld) [Entitic vol] 12.5 fL Normal 9.5-13.5 [facility] Comment on above: Performed By: #### C MP, BNP #### [facility] [address] [place] [address] Dr. Kamaljit Browning PLT 126 103/ul Critically low 150-450 [facility] Comment on above: Performed By: #### C MP, BNP #### [facility] [address] [place] [address] Dr. Kamaljit Browning RBC 4.18 106/ul Critically low 4.70-6.10 [facility] Comment on above: Performed By: #### C MP, BNP #### [facility] [address] [place] [address] Dr. Kamaljit Browning WBC 5.2 103/ul Normal 4.0-11.0 [facility] Comment on above: Performed By: #### C MP, BNP #### [facility] [address] [place] [address] Dr. Kamaljit Browning FREE THYROXINE INDEX T7on FTI 2.31 Normal 1.30-4.50 [facility] Comment on above: Performed By: #### C BC #### [facility] [address] [address] [address] Kamaljit Browning T3U 34.0 % Normal 33.0-40.0 [facility] Comment on above: Performed By: #### C BC #### [facility] [address] [address] [address] Kamaljit Browning T4 [Mass/Vol] 6.80 ug/dL Normal 4.50-12.10 [facility] Comment on above: Performed By: #### C BC #### [facility] [address] [address] [address] Kamaljit Browning GLYCOHEMOGLOBIN A1Con 2022 ADA RECOMMENDATION SEE BELOW Normal [facility] Comment on above: Result Comment: ADA RECOMMENDED LIMIT 4.0 - 6.0 ADA THERAPEUTIC TARGET < 7.0 ACTION SUGGESTED > 7.0 Performed By: #### A 1C #### [facility] [address] [address] [address] Kamaljit Browning Glucose [Mass/Vol] 154 mg/dL Normal [facility] Comment on above: Performed By: #### A 1C #### [facility] [address] [address] [address] Kamaljit Browning HbA1c (Bld) [Mass fraction] 7.0 % Critically high 4.5-6.2 [facility] Comment on above: Performed By: #### A 1C #### [facility] [address] [address] [address] Kamaljit Browning LIPID PROFILEon 11-14-2022 CHOL-HDL RATIO NORM SEE BELOW Normal [facility] Comment on above: Result Comment: 3.3 - 4.4 LOW RISK 4.4 - 7.1 AVERAGE RISK 7.1 - 11.0 MODERATE RISK >11.0 HIGH RISK Performed By: #### A 1C #### [facility] [address] [place] [address] Dr. Kamaljit Browning Cholesterol [Mass/Vol] 148 mg/dL Normal <=200 [facility] Comment on above: Performed By: #### A 1C #### [facility] [address] [address] [address] Kamaljit Browning Cholesterol in HDL [Mass/Vol] 41 mg/dL Normal 40-60 [facility] Comment on above: Performed By: #### A 1C #### [facility] [address] [address] [address] Kamaljit Browning Cholesterol in LDL [Mass/Vol] 81.6 mg/dL Normal [facility] Comment on above: Performed By: #### A 1C #### [facility] [address] [address] [address] Kamaljit Browning Cholesterol.total/Ch olesterol in HDL [Mass ratio] 3.6 {ratio} Normal [facility] Comment on above: Performed By: #### A 1C #### [facility] [address] [place] [address] Dr. Kamaljit Browning HDL NORMAL > or = 60 mg/dl - LO W CARDIOVASCULAR RISK <40 mg/dl - HIGH CARDIOVASCULAR RISK Normal [facility] Comment on above: Performed By: #### A 1C #### [facility] [address] [place] [address] Dr. Kamaljit Browning LDL CALC NORMAL SEE BELOW Normal [facility] Comment on above: Result Comment: <100 mg/dl OPTIMAL 100 - 129 mg/dl NEAR OR ABOVE OPTIMAL 130 - 159 mg/dl BORDERLINE HIGH 160 - 189 mg/dl HIGH >190 mg/dl VERY HIGH Performed By: #### A 1C #### [facility] [address] [place] [address] Dr. Kamaljit Browning Triglyceride [Mass/Vol] 127 mg/dL Normal <=150 [facility] Comment on above: Performed By: #### A 1C #### [facility] [address] [place] [address] Dr. Kamaljit Browning VLDL CALC 25.4 mg/dL Normal [facility] Comment on above: Performed By: #### A 1C #### [facility] [address] [place] [address] Dr. Kamaljit Browning PROF 14(COMP METB)on 023 Albumin [Mass/Vol] 4.2 g/dL Normal 3.4-5.0 [facility] Comment on above: Performed By: #### A 1C #### [facility] [address] [place] [address] Dr. Kamaljit Browning Albumin/Globulin [Mass ratio] 1.3 {ratio} Normal [facility] Comment on above: Performed By: #### A 1C #### [facility] [address] [place] [address] Dr. Kamaljit Browning ALP [Catalytic activity/Vol] 79 U/L Normal 46-116 [facility] Comment on above: Performed By: #### A 1C #### [facility] [address] [place] [address] Dr. Kamaljit Browning ALT [Catalytic activity/Vol] 27 U/L Normal 16-63 [facility] Comment on above: Performed By: #### A 1C #### [facility] [address] [place] [address] Dr. Kamaljit Browning Anion gap [Moles/Vol] 15.0 mmol/L Normal [facility] Comment on above: Performed By: #### A 1C #### [facility] [address] [place] [address] Dr. Kamaljit Browning AST [Catalytic activity/Vol] 23 U/L Normal 15-37 [facility] Comment on above: Performed By: #### A 1C #### [facility] [address] [place] [address] Dr. Kamaljit Browning Bilirubin [Mass/Vol] 0.3 mg/dL Normal 0.2-1.0 [facility] Comment on above: Performed By: #### A 1C #### [facility] [address] [place] [address] Dr. Kamaljit Browning Calcium [Mass/Vol] 9.0 mg/dL Normal 8.5-10.1 [facility] Comment on above: Performed By: #### A 1C #### [facility] [address] [place] [address] Dr. Kamaljit Browning Chloride [Moles/Vol] 105 mmol/L Normal 98-107 [facility] Comment on above: Performed By: #### A 1C #### [facility] [address] [place] [address] Dr. Kamaljit Browning CO2 [Moles/Vol] 24.7 mmol/L Normal 21.0-32.0 [facility] Comment on above: Performed By: #### A 1C #### [facility] [address] [place] [address] Dr. Kamaljit Browning Creatinine [Mass/Vol] 1.55 mg/dL Critically high 0.70-1.30 [facility] Comment on above: Performed By: #### A 1C #### [facility] [address] [place] [address] Dr. Kamaljit Browning EGFR-AF BOLIVIAN 54 mL/min/1.73m2 Critically low >=60 [facility] Comment on above: Performed By: #### A 1C #### [facility] [address] [place] [address] Dr. Kamaljit Browning EGFR-NON AF BOLIVIAN 45 mL/min/1.73m2 Critically low >=60 [facility] Comment on above: Performed By: #### A 1C #### [facility] [address] [place] [address] Dr. Kamaljit Browning Globulin (S) [Mass/Vol] 3.3 g/dL Normal [facility] Comment on above: Performed By: #### A 1C #### [facility] [address] [place] [address] Dr. Kamaljit Browning Glucose [Mass/Vol] 129 mg/dL Critically high 74-106 [facility] Comment on above: Performed By: #### A 1C #### [facility] [address] [place] [address] Dr. Kamaljit Browning Potassium [Moles/Vol] 4.7 mmol/L Normal 3.5-5.1 [facility] Comment on above: Performed By: #### A 1C #### [facility] [address] [place] [address] Dr. Kamaljit Browning Protein [Mass/Vol] 7.5 g/dL Normal 6.4-8.2 [facility] Comment on above: Performed By: #### A 1C #### [facility] [address] [place] [address] Dr. Kamaljit Browning Sodium [Moles/Vol] 140 mmol/L Normal 136-145 [facility] Comment on above: Performed By: #### A 1C #### [facility] [address] [place] [address] Dr. Kamaljit Browning Urea nitrogen [Mass/Vol] 30.0 mg/dL Critically high 7.0-18.0 [facility] Comment on above: Performed By: #### A 1C #### [facility] [address] [place] [address] Dr. Kamaljit Browning Urea nitrogen/Creatinine [Mass ratio] 19.4 mg/mg Normal [facility] Comment on above: Performed By: #### A 1C #### [facility] [address] [place] [address] Dr. Kamaljit Browning TSHon 11-14-2022 TSH 1.597 uIU/mL Normal 0.358-3.740 [facility] Comment on above: Performed By: #### A 1C #### [facility] [address] [place] [address] Dr. Kamaljit Browning URIC ACID SERUMon 11-14-2022 Urate [Mass/Vol] 9.4 mg/dL Critically high 3.5-7.2 [facility] Comment on above: Performed By: #### C BC #### [facility] [address] [place] [address] Dr. Kamaljit Browning OCC BLD IMMUNO SCREENon 10-27 OCCULT BLOOD Positive Abnormal NEGATIVE [facility] Comment on above: Performed By: #### C MP, BNP #### [facility] [address] [place] [address] Dr. Kamaljit Browning POINT OF CARE GLUCOSEon 05-29 Glucose [Mass/Vol] 329 mg/dL Critically high 74-106 [facility] Comment on above: Performed By: #### A 1C #### [facility] [address] [place] [address] Dr. Kamaljit Browning [facility]on SARS-CoV-2 (COVID-19) RNA SOURAV+probe Ql (Unsp spec) Not detected Normal NOT DETECTED [facility] Comment on above: Result Comment: When [...] for this test is supported by the Gas Meter Checker of Health and Human Service's declaration that [...] used). Performed By: #### A 1C #### [facility] [address] [place] [address] Dr. Kamaljit Browning INFLUENZA A AND B AGon 06-02 INFLUANEGH SEE BELOW Normal [facility] Comment on above: Result Comment: Nega tive for Flu A protein angiten. Infection due to Flu A cannot be ruled out. Flu A angiten in the sample may be below the detection limit of the test. Performed By: #### C BC #### [facility] [address] [place] [address] Dr. Kamaljit Browning INFLUBNEG SEE BELOW Normal [facility] Comment on above: Result Comment: Nega tive for Flu B protein antigen. Infection due to Flu B cannot be ruled out. Flu B antigen in the sample may be below the detection limit of the test. Performed By: #### C BC #### [facility] [address] [place] [address] Dr. Kamaljit Browning INFLUENZA A AG Negative Normal NEGATIVE SEE COMMENT [facility] Comment on above: Performed By: #### C BC #### [facility] [address] [place] [address] Dr. Kamaljit Browning INFLUENZA B AG Negative Normal NEGATIVE SEE COMMENT [facility] Comment on above: Performed By: #### C BC #### [facility] [address] [place] [address] Dr. Kamaljit Browning INTERNAL CONTROLS Within Normal Limits Normal Wi thin Normal Limits [facility] Comment on above: Performed By: #### C BC #### [facility] [address] [place] [address] Dr. Kamaljit Browning PROF CHEM 8 (BAS METB)on Anion gap [Moles/Vol] 13.1 mmol/L Normal [facility] Comment on above: Performed By: #### C BC #### [facility] [address] [place] [address] Dr. Kamaljit Browning Calcium [Mass/Vol] 8.9 mg/dL Normal 8.5-10.1 [facility] Comment on above: Performed By: #### C BC #### [facility] [address] [place] [address] Dr. Kamaljit Browning Chloride [Moles/Vol] 105 mmol/L Normal 98-107 [facility] Comment on above: Performed By: #### C BC #### [facility] [address] [place] [address] Dr. Kamaljit Browning CO2 [Moles/Vol] 27.3 mmol/L Normal 21.0-32.0 [facility] Comment on above: Performed By: #### C BC #### [facility] [address] [place] [address] Dr. Kamaljit Browning Creatinine [Mass/Vol] 1.28 mg/dL Normal 0.70-1.30 [facility] Comment on above: Performed By: #### C BC #### [facility] [address] [place] [address] Dr. Kamaljit Browning EGFR-AF BOLIVIAN >60 Normal >=60 [facility] Comment on above: Performed By: #### C BC #### [facility] [address] [place] [address] Dr. Kamaljit Browning EGFR-NON AF BOLIVIAN 56 mL/min/1.73m2 Critically low >=60 [facility] Comment on above: Performed By: #### C BC #### [facility] [address] [address] [address] Kamaljit Browning Glucose [Mass/Vol] 119 mg/dL Critically high 74-106 [facility] Comment on above: Performed By: #### C BC #### [facility] [address] [address] [address] Kamaljit Browning Potassium [Moles/Vol] 4.4 mmol/L Normal 3.5-5.1 [facility] Comment on above: Performed By: #### C BC #### [facility] [address] [address] [address] Kamaljit Browning Sodium [Moles/Vol] 141 mmol/L Normal 136-145 [facility] Comment on above: Performed By: #### C BC #### [facility] [address] [address] [address] Kamaljit Browning Urea nitrogen [Mass/Vol] 20.0 mg/dL Critically high 7.0-18.0 [facility] Comment on above: Performed By: #### C BC #### [facility] [address] [address] [address] Kamlajit Browning Urea nitrogen/Creatinine [Mass ratio] 15.6 mg/mg Normal [facility] Comment on above: Performed By: #### C BC #### [facility] [address] [address] [address] Kamaljit Browning METANEPHRINES PLASMA FREEon 01-18-2022 Metanephrine, Pl 46.2 pg/mL Normal 0.0-88.0 [facility] Comment on above: Performed By: #### C MP, BNP #### [facility] [address] [address] [address] Kamaljit Browning Normetanephrine, Pl 33.2 pg/mL Normal 0.0-285.2 [facility] Comment on above: Performed By: #### C MP, BNP #### [facility] [address] [place] [address] Dr. Kamaljit Browning ALDOSTERONE: RENIN RATIOon 0 01-08-2022 Aldos/Renin Ratio UPTCAL Normal [facility] Comment on above: Result Comment: Unab le to calculate result since non-numeric result obtained for component test. Units: ng/dL per ng/mL/hr Performed By: #### A LDOREN #### [facility] [address] [place] [address] Dr. Kamaljit Browning Aldosterone <1.0 Normal 0.0-30.0 [facility] Comment on above: Performed By: #### A LDOREN #### [facility] [address] [place] [address] Dr. Kamaljit Browning Renin Activity, Plasma <0.167 Critically low 0.167-5.380 [facility] Comment on above: Performed By: #### A LDOREN #### [facility] [address] [place] [address] Dr. Kamaljit Browning CATECHOLAMINES FRAC, PLASMAo n 12-31-2021 Dopamine, Pl <30 Normal 0-48 [facility] Comment on above: Performed By: #### C MP, BNP #### [facility] [address] [place] [address] Dr. Kamaljit Browning Epinephrine, Pl 58 pg/mL Normal 0-62 [facility] Comment on above: Performed By: #### C MP, BNP #### [facility] [address] [place] [address] Dr. Kamaljit Browning Norepinephrine, Pl 246 pg/mL Normal 0-874 [facility] Comment on above: Performed By: #### C MP, BNP #### [facility] [address] [place] [address] Dr. Kamaljit Browning BNPon 12-26-2021 Natriuretic peptide B (Bld) [Mass/Vol] 126.0 pg/mL Normal <=900.0 [facility] Comment on above: Performed By: #### C MP, BNP #### [facility] [address] [place] [address] Dr. Kamaljit Browning CBC AUTO DIFFon 12-26-2021 BASO # 0.1 103/ul Normal 0.0-0.1 [facility] Comment on above: Performed By: #### C BC #### [facility] [address] [place] [address] Dr. Kamaljit Browning Basophils/100 WBC (Bld) 0.9 % Normal 0.2-2.0 [facility] Comment on above: Performed By: #### C BC #### [facility] [address] [place] [address] Dr. Kamaljit Browning EO # 0.1 103/ul Normal 0.0-0.7 [facility] Comment on above: Performed By: #### C BC #### [facility] [address] [place] [address] Dr. Kamaljit Browning Eosinophils/100 WBC (Bld) 1.0 % Normal 0.9-7.0 [facility] Comment on above: Performed By: #### C BC #### [facility] [address] [place] [address] Dr. Kamaljit Browning Erythrocyte distribution width (RBC) [Ratio] 12.1 % Normal 11.0-15.0 [facility] Comment on above: Performed By: #### C BC #### [facility] [address] [place] [address] Dr. Kamaljit Browning Hematocrit (Bld) [Volume fraction] 39.2 % Critically low 42.0-54.0 [facility] Comment on above: Performed By: #### C BC #### [facility] [address] [place] [address] Dr. Kamaljit Browning Hemoglobin (Bld) [Mass/Vol] 13.2 g/dL Critically low 14.0-18.0 [facility] Comment on above: Performed By: #### C BC #### [facility] [address] [place] [address] Dr. Kamaljit Browning IG # 0.01 10e3/ul Normal 0.00-0.03 [facility] Comment on above: Performed By: #### C BC #### [facility] [address] [place] [address] Dr. Kamaljit Browning IG % 0.2 % Normal 0.0-0.5 [facility] Comment on above: Performed By: #### C BC #### [facility] [address] [place] [address] Dr. Kamaljit Browning LYMPH # 1.1 103/ul Critically low 1.2-3.8 [facility] Comment on above: Performed By: #### C BC #### [facility] [address] [place] [address] Dr. Kamaljit Bronwing Lymphocytes/100 WBC (Bld) 18.5 % Critically low 20.5-60.0 [facility] Comment on above: Performed By: #### C BC #### [facility] [address] [place] [address] Dr. Kamaljit Browning MANUAL DIFF REQ NO Normal [facility] Comment on above: Performed By: #### C BC #### [facility] [address] [place] [address] Dr. Kamaljit Browning MCH (RBC) [Entitic mass] 30.5 pg Normal 25.9-34.0 [facility] Comment on above: Performed By: #### C BC #### [facility] [address] [place] [address] Dr. Kamaljit Browning MCHC (RBC) [Mass/Vol] 33.7 g/dL Normal 29.9-35.2 [facility] Comment on above: Performed By: #### C BC #### [facility] [address] [place] [address] Dr. Kamaljit Browning MCV (RBC) [Entitic vol] 90.5 fL Normal 80.0-94.0 [facility] Comment on above: Performed By: #### C BC #### [facility] [address] [place] [address] Dr. Kamaljit Browning MONO # 0.4 103/ul Normal 0.3-0.8 [facility] Comment on above: Performed By: #### C BC #### [facility] [address] [place] [address] Dr. Kamaljit Browning Monocytes/100 WBC (Bld) 7.7 % Normal 1.7-12.0 [facility] Comment on above: Performed By: #### C BC #### [facility] [address] [place] [address] Dr. Kamaljit Browning NEUT # 4.1 103/ul Normal 1.4-6.5 [facility] Comment on above: Performed By: #### C BC #### [facility] [address] [place] [address] Dr. Kamaljit Browning Neutrophils/100 WBC (Bld) 71.7 % Normal 43.0-75.0 [facility] Comment on above: Performed By: #### C BC #### [facility] [address] [place] [address] Dr. Kamaljit Browning Platelet mean volume (Bld) [Entitic vol] 12.9 fL Normal 9.5-13.5 [facility] Comment on above: Performed By: #### C BC #### [facility] [address] [place] [address] Dr. Kamaljit Browning PLT 129 103/ul Critically low 150-450 [facility] Comment on above: Performed By: #### C BC #### [facility] [address] [place] [address] Dr. Kamaljit Browning RBC 4.33 106/ul Critically low 4.70-6.10 [facility] Comment on above: Performed By: #### C BC #### [facility] [address] [place] [address] Dr. Kamaljit Browning WBC 5.7 103/ul Normal 4.0-11.0 [facility] Comment on above: Performed By: #### C BC #### [facility] [address] [place] [address] Dr. Kamaljit Browning PROF 14(COMP METB)on 022 Albumin [Mass/Vol] 3.9 g/dL Normal 3.4-5.0 [facility] Comment on above: Performed By: #### C MP, BNP #### [facility] [address] [place] [address] Dr. Kamaljit Browning Albumin/Globulin [Mass ratio] 1.2 {ratio} Normal [facility] Comment on above: Performed By: #### C MP, BNP #### [facility] [address] [place] [address] Dr. Kamaljit Browning ALP [Catalytic activity/Vol] 83 U/L Normal 46-116 [facility] Comment on above: Performed By: #### C MP, BNP #### [facility] [address] [place] [address] Dr. Kamaljit Browning ALT [Catalytic activity/Vol] 30 U/L Normal 16-63 [facility] Comment on above: Performed By: #### C MP, BNP #### [facility] [address] [place] [address] Dr. Kamaljit Browning Anion gap [Moles/Vol] 12.6 mmol/L Normal [facility] Comment on above: Performed By: #### C MP, BNP #### [facility] [address] [place] [address] Dr. Kamaljit Browning AST [Catalytic activity/Vol] 28 U/L Normal 15-37 [facility] Comment on above: Performed By: #### C MP, BNP #### [facility] [address] [place] [address] Dr. Kamaljit Browning Bilirubin [Mass/Vol] 0.6 mg/dL Normal 0.2-1.0 [facility] Comment on above: Performed By: #### C MP, BNP #### [facility] [address] [place] [address] Dr. Kamaljit Browning Calcium [Mass/Vol] 8.9 mg/dL Normal 8.5-10.1 [facility] Comment on above: Performed By: #### C MP, BNP #### [facility] [address] [place] [address] Dr. Kamaljit Browning Chloride [Moles/Vol] 107 mmol/L Normal 98-107 [facility] Comment on above: Performed By: #### C MP, BNP #### [facility] [address] [place] [address] Dr. Kamaljit Browning CO2 [Moles/Vol] 26.4 mmol/L Normal 21.0-32.0 [facility] Comment on above: Performed By: #### C MP, BNP #### [facility] [address] [address] [address] Kamaljit Browning Creatinine [Mass/Vol] 1.11 mg/dL Normal 0.70-1.30 [facility] Comment on above: Performed By: #### C MP, BNP #### [facility] [address] [address] [address] Kamaljit Browning EGFR-AF BOLIVIAN >60 Normal >=60 [facility] Comment on above: Performed By: #### C MP, BNP #### [facility] [address] [address] [address] Kamaljit Browning EGFR-NON AF BOLIVIAN >60 Normal >=60 [facility] Comment on above: Performed By: #### C MP, BNP #### [facility] [address] [place] [address] Dr. Kamaljit Browning Globulin (S) [Mass/Vol] 3.2 g/dL Normal [facility] Comment on above: Performed By: #### C MP, BNP #### [facility] [address] [address] [address] Kamaljit Browning Glucose [Mass/Vol] 112 mg/dL Critically high 74-106 [facility] Comment on above: Performed By: #### C MP, BNP #### [facility] [address] [place] [address] Dr. Kamaljit Browning Potassium [Moles/Vol] 4.0 mmol/L Normal 3.5-5.1 [facility] Comment on above: Performed By: #### C MP, BNP #### [facility] [address] [place] [address] Dr. Kamaljit Browning Protein [Mass/Vol] 7.1 g/dL Normal 6.4-8.2 [facility] Comment on above: Performed By: #### C MP, BNP #### [facility] [address] [address] [address] Kamaljit Browning Sodium [Moles/Vol] 142 mmol/L Normal 136-145 [facility] Comment on above: Performed By: #### C MP, BNP #### [facility] [address] [address] [address] Kamaljit Browning Urea nitrogen [Mass/Vol] 15.0 mg/dL Normal 7.0-18.0 [facility] Comment on above: Performed By: #### C MP, BNP #### [facility] [address] [address] [address] Kamaljit Browning Urea nitrogen/Creatinine [Mass ratio] 13.5 mg/mg Normal [facility] Comment on above: Performed By: #### C MP, BNP #### [facility] [address] [place] [address] Dr. Kamaljit Browning PROTIMEon 12-26-2021 INR Coag (PPP) [Relative time] 3.98 {INR} Normal [facility] Comment on above: Performed By: #### A 1C #### [facility] [address] [place] [address] Dr. Kamaljit Browning INR GUIDELINES SEE BELOW Normal [facility] Comment on above: Result Comment: NILDA RED INR: 2.0 - 3.0 CONDITIONS NOT LISTED BELOW 2.5 - 3.5 FOR PROSTHETIC HEART VALVE REPLACEMENT 2.5 - 3.5 RECURRENT THROMBOSIS Performed By: #### A 1C #### [facility] [address] [place] [address] Dr. Kamaljit Browning PT Coag (PPP) [Time] 39.3 s Critically high 9.0-11.6 [facility] Comment on above: Performed By: #### A 1C #### [facility] [address] [place] [address] Dr. Kamaljit Browning T3, TOTAL (TRIIODOTHYRONINE) on 12-26-2021 T3, TOTAL 67 ng/dL Critically low 71-180 [facility] Comment on above: Performed By: #### C BC #### [facility] [address] [place] [address] Dr. Kamaljit Browning US VASCULAR ORG CMPLon [...] LISBET BRANCH Date: 2021-12-26 09:34 Normal [facility] BNPon 12-25-2021 Natriuretic peptide B (Bld) [Mass/Vol] 106.0 pg/mL Normal <=900.0 [facility] Comment on above: Performed By: #### C MP, BNP #### [facility] [address] [place] [address] Dr. Kamaljit Browning CARDIAC GABRIELLA 3-6on 2 CK [Catalytic activity/Vol] 92 U/L Normal 39-308 [facility] Comment on above: Performed By: #### C MP, BNP #### [facility] [address] [place], [place] [address] Dr. Kamaljit Browning CK.MB [Mass/Vol] 1.08 ng/mL Normal <=3.60 [facility] Comment on above: Performed By: #### C MP, BNP #### [facility] [address] [address] [address] Kamaljit Browning HSTROP 21.7 pg/mL Normal 4.0-76.1 [facility] Comment on above: Result Comment: CUT- OFF POINTS HAVE BEEN ESTABLISHED BASED ON THE FOURTH UNIVERSAL DEFINITIONS OF MYOCARDIAL INFARCTION. THE UPPER REFERENCE LIMIT (URL) OF TROPONIN, DEFINED THE 99TH PERCENTILE OF cTnI DISTRIBUTION IN A REFERENCE POPULATION, HAS BEEN CONFIRMED THE DECISION THRESHOLD FOR CT DIAGNOSIS. Performed By: #### C MP, BNP #### [facility] [address] [address] [address] Kamaljit Browning CK [Catalytic activity/Vol] 98 U/L Normal 39-308 [facility] Comment on above: Performed By: #### C MP, BNP #### [facility] [address] [address] [address] Kamaljit Browning CK.MB [Mass/Vol] 1.25 ng/mL Normal <=3.60 [facility] Comment on above: Performed By: #### C MP, BNP #### [facility] [address] [address] [address] Kamaljit Browning HSTROP 23.6 pg/mL Normal 4.0-76.1 [facility] Comment on above: Result Comment: CUT- OFF POINTS HAVE BEEN ESTABLISHED BASED ON THE FOURTH UNIVERSAL DEFINITIONS OF MYOCARDIAL INFARCTION. THE UPPER REFERENCE LIMIT (URL) OF TROPONIN, DEFINED THE 99TH PERCENTILE OF cTnI DISTRIBUTION IN A REFERENCE POPULATION, HAS BEEN CONFIRMED THE DECISION THRESHOLD FOR CT DIAGNOSIS. Performed By: #### C MP, BNP #### [facility] [address] [address] [address] Kamaljit Browning CARDIAC GABRIELLA ADMITon 022 CK [Catalytic activity/Vol] 105 U/L Normal 39-308 [facility] Comment on above: Performed By: #### C MP, BNP #### [facility] [address] [address] [address] Kamaljit SHEETS.MB [Mass/Vol] 0.99 ng/mL Normal <=3.60 [facility] Comment on above: Performed By: #### C MP, BNP #### [facility] [address] [address] [address] Kamaljit Browning HSTROP 24.9 pg/mL Normal 4.0-76.1 [facility] Comment on above: Result Comment: CUT- OFF POINTS HAVE BEEN ESTABLISHED BASED ON THE FOURTH UNIVERSAL DEFINITIONS OF MYOCARDIAL INFARCTION. THE UPPER REFERENCE LIMIT (URL) OF TROPONIN, DEFINED THE 99TH PERCENTILE OF cTnI DISTRIBUTION IN A REFERENCE POPULATION, HAS BEEN CONFIRMED THE DECISION THRESHOLD FOR CT DIAGNOSIS. Performed By: #### C MP, BNP #### [facility] [address] [place] [address] Dr. Kamaljit Browning SANDI 51 ng/mL Normal 16-96 [facility] Comment on above: Performed By: #### C MP, BNP #### [facility] [address] [place] [address] Dr. Kamaljit Browning CBC AUTO DIFFon 12-25-2021 BASO # 0.1 103/ul Normal 0.0-0.1 [facility] Comment on above: Performed By: #### C BC #### [facility] [address] [place] [address] Dr. Kamaljit Browning Basophils/100 WBC (Bld) 0.8 % Normal 0.2-2.0 [facility] Comment on above: Performed By: #### C BC #### [facility] [address] [place] [address] Dr. Kamaljit Browning EO # 0.1 103/ul Normal 0.0-0.7 [facility] Comment on above: Performed By: #### C BC #### [facility] [address] [place] [address] Dr. Kamaljit Browning Eosinophils/100 WBC (Bld) 1.0 % Normal 0.9-7.0 [facility] Comment on above: Performed By: #### C BC #### [facility] [address] [place] [address] Dr. Kamaljit Browning Erythrocyte distribution width (RBC) [Ratio] 12.1 % Normal 11.0-15.0 [facility] Comment on above: Performed By: #### C BC #### [facility] [address] [place] [address] Dr. Kamaljit Browning Hematocrit (Bld) [Volume fraction] 42.2 % Normal 42.0-54.0 [facility] Comment on above: Performed By: #### C BC #### [facility] [address] [address] [address] Kamaljit Browning Hemoglobin (Bld) [Mass/Vol] 14.2 g/dL Normal 14.0-18.0 [facility] Comment on above: Performed By: #### C BC #### [facility] [address] [place] [address] Dr. Kamaljit Browning IG # 0.02 10e3/ul Normal 0.00-0.03 [facility] Comment on above: Performed By: #### C BC #### [facility] [address] [place] [address] Dr. Kamaljit Browning IG % 0.3 % Normal 0.0-0.5 [facility] Comment on above: Performed By: #### C BC #### [facility] [address] [place] [address] Dr. Kamaljit Browning LYMPH # 0.9 103/ul Critically low 1.2-3.8 [facility] Comment on above: Performed By: #### C BC #### [facility] [address] [place] [address] Dr. Kamaljit Browning Lymphocytes/100 WBC (Bld) 14.7 % Critically low 20.5-60.0 [facility] Comment on above: Performed By: #### C BC #### [facility] [address] [place] [address] Dr. Kamaljit Browning MANUAL DIFF REQ NO Normal [facility] Comment on above: Performed By: #### C BC #### [facility] [facility] [address] [place] [address] Dr. Kamaljit Browning MCH (RBC) [Entitic mass] 30.4 pg Normal 25.9-34.0 [facility] Comment on above: Performed By: #### C BC #### [facility] [address] [place] [address] Dr. Kamaljit Browning MCHC (RBC) [Mass/Vol] 33.6 g/dL Normal 29.9-35.2 [facility] Comment on above: Performed By: #### C BC #### [facility] [address] [address] [address] Kamaljit Browning MCV (RBC) [Entitic vol] 90.4 fL Normal 80.0-94.0 [facility] Comment on above: Performed By: #### C BC #### [facility] [address] [address] [address] Kamaljit Browning MONO # 0.4 103/ul Normal 0.3-0.8 [facility] Comment on above: Performed By: #### C BC #### [facility] [address] [address] [address] Kamaljit Browning Monocytes/100 WBC (Bld) 6.5 % Normal 1.7-12.0 [facility] Comment on above: Performed By: #### C BC #### [facility] [address] [address] [address] Kamaljit Browning NEUT # 4.6 103/ul Normal 1.4-6.5 [facility] Comment on above: Performed By: #### C BC #### [facility] [address] [address] [address] Kamaljit Browning Neutrophils/100 WBC (Bld) 76.7 % Critically high 43.0-75.0 [facility] Comment on above: Performed By: #### C BC #### [facility] [address] [address] [address] Kamaljit Browning Platelet mean volume (Bld) [Entitic vol] 12.2 fL Normal 9.5-13.5 [facility] Comment on above: Performed By: #### C BC #### [facility] [address] [address] [address] Kamaljit Browning PLT 120 103/ul Critically low 150-450 [facility] Comment on above: Performed By: #### C BC #### [facility] [id number] Kamaljit Browning RBC 4.67 106/ul Critically low 4.70-6.10 [facility] Comment on above: Performed By: #### C BC #### [facility] [address] [place] [address] Dr. Kamaljit Browning WBC 6.0 103/ul Normal 4.0-11.0 [facility] Comment on above: Performed By: #### C BC #### [facility] [id number] Kamaljit Browning CULTURE URINEon 12-25-2021 CULTURE URINE Culture Observations : NO GROWTH. Normal [facility] Comment on above: Performed By: #### C MP, BNP #### [facility] [address] [address] [address] Kamaljit Browning Covid-19 PCR ([facility])on 11-28 SARS-CoV-2 (COVID-19) RNA SOURAV+probe Ql (Unsp spec) Not detected Normal NOT DETECTED [facility] Comment on above: Result Comment: When [...] for this test is supported by the [employer]er of Health and Human Service's declaration that [...] used). Performed By: #### C BC #### [facility] [address] [place] [address] Dr. Kamaljit Browning ECHOCARDIO M/2D COMPLETEon 0 12-25-2021 ECHOCARDIO M/2D COMPLETE Patient: MARTIN WEST Exam Date: 12/25/2021 : 1950 Gender:M Ordering : DR PETRA WOOTEN . Admission #: [id number] Family : DR ALAYNA KIM M.D. Order #: [id number] CLICK HERE TO VIEW EXAM ECHOCARDIOGRAM REPORT [...] Area(A4C): 22.50 cm2 Left Atrium Systolic Volume(A2C): 91303 mm3 Left Atrium Systolic Volume(A4C): 71418 mm3 Mitral Valve MV E to A Ratio: 1 Deceleration [place]: 5860 mm/s2 Mitral Valve A-Wave Peak Velocity: [...] M.D. on 12/25/2021 at 16:48 Normal [facility] MAGNESIUMon 12-25-2021 Magnesium [Mass/Vol] 2.2 mg/dL Normal 1.8-2.4 [facility] Comment on above: Performed By: #### C MP, BNP #### [facility] [address] [place] [address] Dr. Kamaljit Browning PHOSPHORUSon 12-25-2021 Phosphate [Mass/Vol] 3.2 mg/dL Normal 2.6-4.7 [facility] Comment on above: Performed By: #### C MP, BNP #### [facility] [address] [place] [address] Dr. Kamaljit Browning PROF 14(COMP METB)on 022 Albumin [Mass/Vol] 4.4 g/dL Normal 3.4-5.0 [facility] Comment on above: Performed By: #### C MP, BNP #### [facility] [address] [place] [address] Dr. Kamaljit Browning Albumin/Globulin [Mass ratio] 1.2 {ratio} Normal [facility] Comment on above: Performed By: #### C MP, BNP #### [facility] [address] [address] [address] Kamaljit Browning ALP [Catalytic activity/Vol] 95 U/L Normal 46-116 [facility] Comment on above: Performed By: #### C MP, BNP #### [facility] [address] [place] [address] Dr. Kamaljit Browning ALT [Catalytic activity/Vol] 30 U/L Normal 16-63 [facility] Comment on above: Performed By: #### C MP, BNP #### [facility] [address] [place] [address] Dr. Kamaljit Browning Anion gap [Moles/Vol] 12.0 mmol/L Normal [facility] Comment on above: Performed By: #### C MP, BNP #### [facility] [address] [place] [address] Dr. Kamaljit Browning AST [Catalytic activity/Vol] 27 U/L Normal 15-37 [facility] Comment on above: Performed By: #### C MP, BNP #### [facility] [address] [place] [address] Dr. Kamaljit Browning Bilirubin [Mass/Vol] 0.8 mg/dL Normal 0.2-1.0 [facility] Comment on above: Performed By: #### C MP, BNP #### [facility] [address] [place] [address] Dr. Kamaljit Browning Calcium [Mass/Vol] 9.1 mg/dL Normal 8.5-10.1 [facility] Comment on above: Performed By: #### C MP, BNP #### [facility] [address] [place] [address] Dr. Kamaljit Browning Chloride [Moles/Vol] 107 mmol/L Normal 98-107 [facility] Comment on above: Performed By: #### C MP, BNP #### [facility] [address] [place] [address] Dr. Kamaljit Browning CO2 [Moles/Vol] 27.6 mmol/L Normal 21.0-32.0 [facility] Comment on above: Performed By: #### C MP, BNP #### [facility] [address] [place] [address] Dr. Kamaljit Browning Creatinine [Mass/Vol] 1.01 mg/dL Normal 0.70-1.30 [facility] Comment on above: Performed By: #### C MP, BNP #### [facility] [address] [place] [address] Dr. Kamaljit Browning EGFR-AF BOLIVIAN >60 Normal >=60 [facility] Comment on above: Performed By: #### C MP, BNP #### [facility] [address] [place] [address] Dr. Kamaljit Browning EGFR-NON AF BOLIVIAN >60 Normal >=60 [facility] Comment on above: Performed By: #### C MP, BNP #### [facility] [address] [place] [address] Dr. Kamaljit Browning Globulin (S) [Mass/Vol] 3.6 g/dL Normal [facility] Comment on above: Performed By: #### C MP, BNP #### [facility] [address] [place] [address] Dr. Kamaljit Browning Glucose [Mass/Vol] 123 mg/dL Critically high 74-106 [facility] Comment on above: Performed By: #### C MP, BNP #### [facility] [address] [place] [address] Dr. Kamaljit Browning Potassium [Moles/Vol] 4.6 mmol/L Normal 3.5-5.1 [facility] Comment on above: Performed By: #### C MP, BNP #### [facility] [address] [place] [address] Dr. Kamaljit Browning Protein [Mass/Vol] 8.0 g/dL Normal 6.4-8.2 [facility] Comment on above: Performed By: #### C MP, BNP #### [facility] [address] [place] [address] Dr. Kamaljit Browning Sodium [Moles/Vol] 142 mmol/L Normal 136-145 [facility] Comment on above: Performed By: #### C MP, BNP #### [facility] [address] [place] [address] Dr. Kamaljit Browning Urea nitrogen [Mass/Vol] 12.0 mg/dL Normal 7.0-18.0 [facility] Comment on above: Performed By: #### C MP, BNP #### [facility] [address] [place] [address] Dr. Kamaljit Browning Urea nitrogen/Creatinine [Mass ratio] 11.9 mg/mg Normal [facility] Comment on above: Performed By: #### C MP, BNP #### [facility] [address] [place] [address] Dr. Kamaljit Browning PROTIMEon 12-25-2021 INR Coag (PPP) [Relative time] 3.75 {INR} Normal [facility] Comment on above: Performed By: #### P T, PTT #### [facility] [address] [place] [address] Dr. Kamaljit Browning INR GUIDELINES SEE BELOW Normal [facility] Comment on above: Result Comment: NILDA RED INR: 2.0 - 3.0 CONDITIONS NOT LISTED BELOW 2.5 - 3.5 FOR PROSTHETIC HEART VALVE REPLACEMENT 2.5 - 3.5 RECURRENT THROMBOSIS Performed By: #### P T, PTT #### [facility] [address] [place] [address] Dr. Kamaljit Browning PT Coag (PPP) [Time] 37.1 s Critically high 9.0-11.6 [facility] Comment on above: Performed By: #### P T, PTT #### [facility] [address] [place] [address] Dr. Kamaljit Browning PTTon 12-25-2021 aPTT Coag (Bld) [Time] 55.4 s Critically high 22.3-36.2 [facility] Comment on above: Performed By: #### P T, PTT #### [facility] [address] [place] [address] Dr. Kamaljit Browning T4on 12-25-2021 T4 [Mass/Vol] 8.90 ug/dL Normal 4.50-12.10 [facility] Comment on above: Performed By: #### C MP, BNP #### [facility] [address] [place] [address] Dr. Kamaljit Browning TSHon 12-25-2021 TSH 0.778 uIU/mL Normal 0.358-3.740 [facility] Comment on above: Performed By: #### C MP, BNP #### [facility] [address] [place] [address] Dr. Kamaljit Browning UA RANDOM W/MICROSCOPICon BACTERIA NONE SEEN Normal NONE SEEN [facility] Comment on above: Performed By: #### A 1C #### [facility] [address] [place] [address] Dr. Kamaljit Browning Bilirubin Ql (U) Negative Normal NEGATIVE [facility] Comment on above: Performed By: #### A 1C #### [facility] [address] [place] [address] Dr. Kamaljit Browning CAST NONE SEEN Normal NONE SEEN [facility] Comment on above: Performed By: #### A 1C #### [facility] [address] [place] [address] Dr. Kamaljit Browning Clarity (U) CLEAR Normal CLEAR [facility] Comment on above: Performed By: #### A 1C #### [facility] [address] [place] [address] Dr. Kamaljit Browning Color (U) LT. YELLOW Normal YELLOW [facility] Comment on above: Performed By: #### A 1C #### [facility] [address] [place] [address] Dr. Kamaljit Browning Crystals LM Nom (Urine sed) NONE SEEN Normal NONE SEEN [facility] Comment on above: Performed By: #### A 1C #### [facility] [address] [place] [address] Dr. Kamaljit Browning Epithelial cells LM Ql (Urine sed) NONE SEEN Normal NONE SEEN /RARE [facility] Comment on above: Performed By: #### A 1C #### [facility] [address] [place] [address] Dr. Kamaljit Browning Glucose Ql (U) Negative Normal NEGATIVE [facility] Comment on above: Performed By: #### A 1C #### [facility] [address] [place] [address] Dr. Kamaljit Browning Hemoglobin Ql (U) Negative Normal NEGATIVE [facility] Comment on above: Performed By: #### A 1C #### [facility] [address] [place] [address] Dr. Kamaljit Browning Ketones Ql (U) Negative Normal NEGATIVE [facility] Comment on above: Performed By: #### A 1C #### [facility] [address] [place] [address] Dr. Kamaljit Browning LEUKOCYTES Negative Normal NEGATIVE [facility] Comment on above: Performed By: #### A 1C #### [facility] [address] [place] [address] Dr. Kamaljit Browning MUCOUS NONE SEEN Normal NONE SEEN [facility] Comment on above: Performed By: #### A 1C #### [facility] [address] [place] [address] Dr. Kamaljit Browning Nitrite Ql (U) Negative Normal NEGATIVE [facility] Comment on above: Performed By: #### A 1C #### [facility] [address] [place] [address] Dr. Kamaljit Browning pH (U) 6.0 [pH] Normal 5-9 [facility] Comment on above: Performed By: #### A 1C #### [facility] [address] [place] [address] Dr. Kamaljit Browning RBC NONE SEEN Abnormal 0-2 [facility] Comment on above: Performed By: #### A 1C #### [facility] [address] [place] [address] Dr. Kamaljit Browning SPEC GRAVITY 1.010 Normal 1.005-<=1.025 [facility] Comment on above: Performed By: #### A 1C #### [facility] [address] [place] [address] Dr. Kamaljit Browning UA PROTEIN Negative Normal NEGATIVE/ TRACE [facility] Comment on above: Performed By: #### A 1C #### [facility] [address] [place] [address] Dr. Kamaljit Browning Urobilinogen Qn (U) 0.2 {Mari'U}/dL Normal 0.2 - 1. 0 [facility] Comment on above: Performed By: #### A 1C #### [facility] [address] [place] [address] Dr. Kamaljit Browning WBC NONE SEEN Normal NONE SEEN [facility] Comment on above: Performed By: #### A 1C #### [facility] [address] [place] [address] Dr. Kamaljit Browning CBC AUTO DIFFon 12-18-2021 BASO # 0.0 103/ul Normal 0.0-0.1 [facility] Comment on above: Performed By: #### C BC #### [facility] [address] [place] [address] Dr. Kamaljit Browning Basophils/100 WBC (Bld) 0.6 % Normal 0.2-2.0 [facility] Comment on above: Performed By: #### C BC #### [facility] [address] [place] [address] Dr. Kamaljit Browning EO # 0.1 103/ul Normal 0.0-0.7 [facility] Comment on above: Performed By: #### C BC #### [facility] [address] [place] [address] Dr. Kamaljit Browning Eosinophils/100 WBC (Bld) 1.1 % Normal 0.9-7.0 [facility] Comment on above: Performed By: #### C BC #### [facility] [address] [place] [address] Dr. Kamaljit Browning Erythrocyte distribution width (RBC) [Ratio] 12.5 % Normal 11.0-15.0 [facility] Comment on above: Performed By: #### C BC #### [facility] [address] [address] [address] Kamaljit Browning Hematocrit (Bld) [Volume fraction] 40.5 % Critically low 42.0-54.0 [facility] Comment on above: Performed By: #### C BC #### [facility] [address] [address] [address] Kamaljit Browning Hemoglobin (Bld) [Mass/Vol] 13.5 g/dL Critically low 14.0-18.0 [facility] Comment on above: Performed By: #### C BC #### [facility] [address] [address] [address] Kamaljit Browning IG # 0.02 10e3/ul Normal 0.00-0.03 [facility] Comment on above: Performed By: #### C BC #### [facility] [address] [place] [address] Dr. Kamaljit Browning IG % 0.3 % Normal 0.0-0.5 [facility] Comment on above: Performed By: #### C BC #### [facility] [address] [place] [address] Dr. Kamaljit Browning LYMPH # 1.0 103/ul Critically low 1.2-3.8 [facility] Comment on above: Performed By: #### C BC #### [facility] [address] [place] [address] Dr. Kamaljit Browning Lymphocytes/100 WBC (Bld) 14.8 % Critically low 20.5-60.0 [facility] Comment on above: Performed By: #### C BC #### [facility] [address] [place] [address] Dr. Kamaljit Browning MANUAL DIFF REQ NO Normal [facility] Comment on above: Performed By: #### C BC #### [facility] [address] [place] [address] Dr. Kamaljit Browning MCH (RBC) [Entitic mass] 30.3 pg Normal 25.9-34.0 [facility] Comment on above: Performed By: #### C BC #### [facility] [address] [place] [address] Dr. Kamaljit Browning MCHC (RBC) [Mass/Vol] 33.3 g/dL Normal 29.9-35.2 [facility] Comment on above: Performed By: #### C BC #### [facility] [address] [address] [address] Kamaljit Browning MCV (RBC) [Entitic vol] 91.0 fL Normal 80.0-94.0 [facility] Comment on above: Performed By: #### C BC #### [facility] [address] [address] [address] Kamaljit Browning MONO # 0.6 103/ul Normal 0.3-0.8 [facility] Comment on above: Performed By: #### C BC #### [facility] [address] [place] [address] Dr. Kamaljit Browning Monocytes/100 WBC (Bld) 9.0 % Normal 1.7-12.0 [facility] Comment on above: Performed By: #### C BC #### [facility] [address] [place] [address] Dr. Kamaljit Browning NEUT # 5.2 103/ul Normal 1.4-6.5 [facility] Comment on above: Performed By: #### C BC #### [facility] [address] [place] [address] Dr. Kamaljit Browning Neutrophils/100 WBC (Bld) 74.2 % Normal 43.0-75.0 [facility] Comment on above: Performed By: #### C BC #### [facility] [address] [place] [address] Dr. Kamaljit Browning Platelet mean volume (Bld) [Entitic vol] 12.7 fL Normal 9.5-13.5 [facility] Comment on above: Performed By: #### C BC #### [facility] [address] [place] [address] Dr. Kamaljit Browning PLT 114 103/ul Critically low 150-450 [facility] Comment on above: Performed By: #### C BC #### [facility] [address] [address] [address] Kamaljit Browning RBC 4.45 106/ul Critically low 4.70-6.10 [facility] Comment on above: Performed By: #### C BC #### [facility] [address] [place] [address] Dr. Kamaljit Browning WBC 7.0 103/ul Normal 4.0-11.0 [facility] Comment on above: Performed By: #### C BC #### [facility] [address] [place] [address] Dr. Kamaljit Browning MAGNESIUMon 12-18-2021 Magnesium [Mass/Vol] 2.1 mg/dL Normal 1.8-2.4 [facility] Comment on above: Performed By: #### C BC #### [facility] [address] [place] [address] Dr. Kamaljit Browning PROF CHEM 8 (BAS METB)on Anion gap [Moles/Vol] 13.2 mmol/L Normal [facility] Comment on above: Performed By: #### C BC #### [facility] [address] [place] [address] Dr. Kamaljit Browning Calcium [Mass/Vol] 8.7 mg/dL Normal 8.5-10.1 [facility] Comment on above: Performed By: #### C BC #### [facility] [address] [place] [address] Dr. Kamaljit Browning Chloride [Moles/Vol] 108 mmol/L Critically high 98-107 [facility] Comment on above: Performed By: #### C BC #### [facility] [address] [place] [address] Dr. Kamaljit Browning CO2 [Moles/Vol] 25.7 mmol/L Normal 21.0-32.0 [facility] Comment on above: Performed By: #### C BC #### [facility] [address] [place] [address] Dr. Kamaljit Browning Creatinine [Mass/Vol] 1.10 mg/dL Normal 0.70-1.30 [facility] Comment on above: Performed By: #### C BC #### [facility] [address] [address] [address] Kamaljit Browning EGFR-AF BOLIVIAN >60 Normal >=60 [facility] Comment on above: Performed By: #### C BC #### [facility] [id number] Kamaljit Browning EGFR-NON AF BOLIVIAN >60 Normal >=60 [facility] Comment on above: Performed By: #### C BC #### [facility] [address] [address] [address] Kamaljit Browning Glucose [Mass/Vol] 118 mg/dL Critically high 74-106 [facility] Comment on above: Performed By: #### C BC #### [facility] [address] [place] [address] Dr. Kamaljit Browning Potassium [Moles/Vol] 3.9 mmol/L Normal 3.5-5.1 [facility] Comment on above: Performed By: #### C BC #### [facility] [address] [place] [address] Dr. Kamaljit Browning Sodium [Moles/Vol] 143 mmol/L Normal 136-145 [facility] Comment on above: Performed By: #### C BC #### [facility] [address] [place] [address] Dr. Kamaljit Browning Urea nitrogen [Mass/Vol] 12.0 mg/dL Normal 7.0-18.0 [facility] Comment on above: Performed By: #### C BC #### [facility] [address] [place] [address] Dr. Kamaljit Browning Urea nitrogen/Creatinine [Mass ratio] 10.9 mg/mg Normal [facility] Comment on above: Performed By: #### C BC #### [facility] [address] [place] [address] Dr. Kamaljit Browning PROTIMEon 12-18-2021 INR Coag (PPP) [Relative time] 2.47 {INR} Normal [facility] Comment on above: Performed By: #### C MP, BNP #### [facility] [address] [place] [address] Dr. Kamaljit Browning INR GUIDELINES SEE BELOW Normal [facility] Comment on above: Result Comment: NILDA RED INR: 2.0 - 3.0 CONDITIONS NOT LISTED BELOW 2.5 - 3.5 FOR PROSTHETIC HEART VALVE REPLACEMENT 2.5 - 3.5 RECURRENT THROMBOSIS Performed By: #### C MP, BNP #### [facility] [address] [place] [address] Dr. Kamaljit Browning PT Coag (PPP) [Time] 25.1 s Critically high 9.0-11.6 [facility] Comment on above: Performed By: #### C MP, BNP #### [facility] [address] [place] [address] Dr. Kamaljit Browning TSHon 12-18-2021 TSH 1.850 uIU/mL Normal 0.358-3.740 [facility] Comment on above: Performed By: #### C BC #### [facility] [address] [place] [address] Dr. Kamaljit Browning BNPon 12-17-2021 Natriuretic peptide B (Bld) [Mass/Vol] 50.0 pg/mL Normal <=900.0 [facility] Comment on above: Performed By: #### A 1C #### [facility] [address] [place] [address] Dr. Kamaljit Browning CBC AUTO DIFFon 12-17-2021 BASO # 0.1 103/ul Normal 0.0-0.1 [facility] Comment on above: Performed By: #### C BC #### [facility] [address] [place] [address] Dr. Kamaljit Browning Basophils/100 WBC (Bld) 1.0 % Normal 0.2-2.0 [facility] Comment on above: Performed By: #### C BC #### [facility] [address] [place] [address] Dr. Kamaljit Browning EO # 0.1 103/ul Normal 0.0-0.7 [facility] Comment on above: Performed By: #### C BC #### [facility] [address] [place] [address] Dr. Kamaljit Browning Eosinophils/100 WBC (Bld) 1.2 % Normal 0.9-7.0 [facility] Comment on above: Performed By: #### C BC #### [facility] Laboratory [address] [place] [address] Dr. Kamaljit Browning Erythrocyte distribution width (RBC) [Ratio] 12.4 % Normal 11.0-15.0 [facility] Comment on above: Performed By: #### C BC #### [facility] [address] [place] [address] Dr. Kamaljit Browning Hematocrit (Bld) [Volume fraction] 43.8 % Normal 42.0-54.0 [facility] Comment on above: Performed By: #### C BC #### [facility] [address] [place] [address] Dr. Kamaljit Browning Hemoglobin (Bld) [Mass/Vol] 14.4 g/dL Normal 14.0-18.0 [facility] Comment on above: Performed By: #### C BC #### [facility] [address] [place] [address] Dr. Kamaljit Browning IG # 0.02 10e3/ul Normal 0.00-0.03 [facility] Comment on above: Performed By: #### C BC #### [facility] [address] [place] [address] Dr. Kamaljit Browning IG % 0.3 % Normal 0.0-0.5 [facility] Comment on above: Performed By: #### C BC #### [facility] [address] [place] [address] Dr. Kamaljit Browning LYMPH # 1.1 103/ul Critically low 1.2-3.8 [facility] Comment on above: Performed By: #### C BC #### [facility] [address] [place] [address] Dr. Kamaljit Browning Lymphocytes/100 WBC (Bld) 18.5 % Critically low 20.5-60.0 [facility] Comment on above: Performed By: #### C BC #### [facility] [address] [place] [address] Dr. Kamaljit Browning MANUAL DIFF REQ NO Normal [facility] Comment on above: Performed By: #### C BC #### [facility] [address] [place] [address] Dr. Kamaljit Browning MCH (RBC) [Entitic mass] 30.2 pg Normal 25.9-34.0 [facility] Comment on above: Performed By: #### C BC #### [facility] [address] [place] [address] Dr. Kamaljit Browning MCHC (RBC) [Mass/Vol] 32.9 g/dL Normal 29.9-35.2 [facility] Comment on above: Performed By: #### C BC #### [facility] [address] [place] [address] Dr. Kamaljit Browning MCV (RBC) [Entitic vol] 91.8 fL Normal 80.0-94.0 [facility] Comment on above: Performed By: #### C BC #### [facility] [address] [place] [address] Dr. Kamaljit Browning MONO # 0.4 103/ul Normal 0.3-0.8 [facility] Comment on above: Performed By: #### C BC #### [facility] [address] [place] [address] Dr. Kamaljit Browning Monocytes/100 WBC (Bld) 7.4 % Normal 1.7-12.0 [facility] Comment on above: Performed By: #### C BC #### [facility] [address] [place] [address] Dr. Kamaljit Browning NEUT # 4.1 103/ul Normal 1.4-6.5 [facility] Comment on above: Performed By: #### C BC #### [facility] [address] [place] [address] Dr. Kamaljit Browning Neutrophils/100 WBC (Bld) 71.6 % Normal 43.0-75.0 [facility] Comment on above: Performed By: #### C BC #### [facility] [address] [place] [address] Dr. Kamaljit Browning Platelet mean volume (Bld) [Entitic vol] 12.4 fL Normal 9.5-13.5 [facility] Comment on above: Performed By: #### C BC #### [facility] [address] [place] [address] Dr. Kamaljit Browning PLT 111 103/ul Critically low 150-450 [facility] Comment on above: Performed By: #### C BC #### [facility] [address] [place] [address] Dr. Kamaljit Browning RBC 4.77 106/ul Normal 4.70-6.10 [facility] Comment on above: Performed By: #### C BC #### [facility] [address] [place] [address] Dr. Kamaljit Browning WBC 5.8 103/ul Normal 4.0-11.0 [facility] Comment on above: Performed By: #### C BC #### [facility] [address] [place] [address] Dr. Kamaljit Browning Covid-19 PCR ([facility])on 11-28 SARS-CoV-2 (COVID-19) RNA SOURAV+probe Ql (Unsp spec) Not detected Normal NOT DETECTED [facility] Comment on above: Result Comment: When [...] for this test is supported by the Gas Meter Checker of Health and Human Service's declaration that [...] Performed By: #### C MP, BNP #### [facility] [address] [place] [address] Dr. Kamaljit Browning PROF 14(COMP METB)on 022 Albumin [Mass/Vol] 4.3 g/dL Normal 3.4-5.0 [facility] Comment on above: Performed By: #### A 1C #### [facility] [address] [place] [address] Dr. Kamaljit Browning Albumin/Globulin [Mass ratio] 1.2 {ratio} Normal [facility] Comment on above: Performed By: #### A 1C #### [facility] [address] [place] [address] Dr. Kamaljit Browning ALP [Catalytic activity/Vol] 115 U/L Normal 46-116 [facility] Comment on above: Performed By: #### A 1C #### [facility] [address] [place] [address] Dr. Kamaljit Browning ALT [Catalytic activity/Vol] 35 U/L Normal 16-63 [facility] Comment on above: Performed By: #### A 1C #### [facility] [address] [place] [address] Dr. Kamaljit Browning Anion gap [Moles/Vol] 15.0 mmol/L Normal [facility] Comment on above: Performed By: #### A 1C #### [facility] [address] [place] [address] Dr. Kamaljit Browning AST [Catalytic activity/Vol] 26 U/L Normal 15-37 [facility] Comment on above: Performed By: #### A 1C #### [facility] [address] [place] [address] Dr. Kamaljit Browning Bilirubin [Mass/Vol] 0.5 mg/dL Normal 0.2-1.0 [facility] Comment on above: Performed By: #### A 1C #### [facility] [address] [place] [address] Dr. Kamaljit Browning Calcium [Mass/Vol] 8.6 mg/dL Normal 8.5-10.1 [facility] Comment on above: Performed By: #### A 1C #### [facility] [address] [place] [address] Dr. Kamaljit Browning Chloride [Moles/Vol] 106 mmol/L Normal 98-107 [facility] Comment on above: Performed By: #### A 1C #### [facility] [address] [place] [address] Dr. Kamaljit Browning CO2 [Moles/Vol] 24.0 mmol/L Normal 21.0-32.0 [facility] Comment on above: Performed By: #### A 1C #### [facility] [address] [place] [address] Dr. Kamaljit Browning Creatinine [Mass/Vol] 1.02 mg/dL Normal 0.70-1.30 [facility] Comment on above: Performed By: #### A 1C #### [facility] [address] [place] [address] Dr. Kamaljit Browning EGFR-AF BOLIVIAN >60 Normal >=60 [facility] Comment on above: Performed By: #### A 1C #### [facility] [address] [place] [address] Dr. Kamaljit Browning EGFR-NON AF BOLIVIAN >60 Normal >=60 [facility] Comment on above: Performed By: #### A 1C #### [facility] [address] [place] [address] Dr. Kamaljit Browning Globulin (S) [Mass/Vol] 3.5 g/dL Normal [facility] Comment on above: Performed By: #### A 1C #### [facility] [address] [place] [address] Dr. Kamaljit Browning Glucose [Mass/Vol] 138 mg/dL Critically high 74-106 [facility] Comment on above: Performed By: #### A 1C #### [facility] [address] [place] [address] Dr. Kamaljit Browning Potassium [Moles/Vol] 4.0 mmol/L Normal 3.5-5.1 [facility] Comment on above: Performed By: #### A 1C #### [facility] [address] [place] [address] Dr. Kamaljit Browning Protein [Mass/Vol] 7.8 g/dL Normal 6.4-8.2 [facility] Comment on above: Performed By: #### A 1C #### [facility] [address] [place], [place] [address] Dr. Kamaljit Browning Sodium [Moles/Vol] 141 mmol/L Normal 136-145 [facility] Comment on above: Performed By: #### A 1C #### [facility] [address] [place], [place] [address] Dr. Kamaljit Browning Urea nitrogen [Mass/Vol] 13.0 mg/dL Normal 7.0-18.0 [facility] Comment on above: Performed By: #### A 1C #### [facility] [address] [place], [place] [address] Dr. Kamaljit Browning Urea nitrogen/Creatinine [Mass ratio] 12.7 mg/mg Normal [facility] Comment on above: Performed By: #### A 1C #### [facility] [address] [address] [address] Kamaljit Browning TROPONIN, HIGH SENSITIVITYon 12-17-2021 HSTROP 11.1 pg/mL Normal 4.0-76.1 [facility] Comment on above: Result Comment: CUT- OFF POINTS HAVE BEEN ESTABLISHED BASED ON THE FOURTH UNIVERSAL DEFINITIONS OF MYOCARDIAL INFARCTION. THE UPPER REFERENCE LIMIT (URL) OF TROPONIN, DEFINED THE 99TH PERCENTILE OF cTnI DISTRIBUTION IN A REFERENCE POPULATION, HAS BEEN CONFIRMED THE DECISION THRESHOLD FOR CT DIAGNOSIS. Performed By: #### A 1C #### [facility] [address] [place] [address] Dr. Kamaljit Browning Vital Signs Date Time Vital Sign Value Performing Clinician Facility 04-18-2024 12:59-0400 Body height 167.6 cm GerardoBlueVine DO Work Phone: [facility] 04-18-2024 12:59-0400 Body mass index (BMI) [Ratio] 35.22 kg/m2 Gerardo Rickie DO Work Phone: [facility] 04-18-2024 12:59-0400 Body weight 98.97 kg Gerardo HeyCrowd DO Work Phone: [facility] 04-18-2024 12:59-0400 Diastolic blood pressure 68 mm[Hg] Gerardo Rickie DO Work Phone: [facility] 04-18-2024 12:59-0400 Heart rate 85 /min Gerardo Petersen DO Work Phone: [facility] 04-18-2024 12:59-0400 SaO2% (BldA) [Mass fraction] 97 % Gerardo Rickie DO Work Phone: [facility] 04-18-2024 12:59-0400 Systolic blood pressure 138 mm[Hg] Gerardo Rickie DO Work Phone: [facility] 03-18-2023 14:09-0400 Blood Pressure Location [facility] [employer] 03-18-2023 14:09-0400 Diastolic blood pressure 86 mm[Hg] Leo NILL [facility] 03-18-2023 14:09-0400 Heart rate 70 /min Leo NILL [facility] 03-18-2023 14:09-0400 Respiratory rate 16 /min Leo NILL [facility] 03-18-2023 14:09-0400 Systolic blood pressure 130 mm[Hg] Leo NILL [facility] Encounters Encounter Date Encounter Type Care Provider Facility Start: 04-18-2024 End: 04-18-2024 Bamboo flowsheet Gerardo Rickie DO [facility] [address] [facility] Start: 04-18-2024 End: 04-18-2024 Bamboo flowsheet Gerardo Rickie DO [facility] [address] Start: 04-18-2024 End: 04-18-2024 Office outpatient new 45 minutes Gerardo Rickie DO [facility] [address] Comment on above: Abnormal CT of the h ead (Primary Dx); Postural dizziness with presyncope; Cerebral hypoperfusion; Balance disorder; Numbness and tingling Start: 04-18-2024 End: 04-18-2024 ambulatory GERARDO PETERSEN Not Available Start: 03-01-2024 End: 03-01-2024 ambulatory [facility] Start: 02-01-2024 End: 02-01-2024 ambulatory [facility] Start: 04-08-2023 End: 04-09-2023 ambulatory Leo R BRYANL Facility:[id number] Start: 03-18-2023 End: 03-19-2023 ambulatory Leo R BRYANL Facility:[facility] Start: 03-18-2023 End: 03-18-2023 Patient encounter procedure Leo R BRYANL General Surgery [facility]/Paula Villaseñor Start: 03-18-2023 End: 03-18-2023 ambulatory [facility] Start: 03-06-2023 ambulatory Leo TATE Facility:Ambrose Villaseñor [...] HENDERSON Facility:H1 Start: 01-27-2022 End: 02-26-2022 ambulatory SHAIKH [...] Performed By: #### C MP, BNP #### [facility] [address] [place] [address] Dr. 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 Plan of Treatment Date Care Activity Detail Author Start: 06-15-2024 End: 06-15-2024 Patient encounter procedure 06/15/2024 4:20 PM EST Office Visit [facility] [address] [place] [phone] Shelly Prakash NP [address] [place] [address] [facility] [address] Start: 05-16-2024 End: 05-16-2024 Patient encounter procedure 05/16/2024 9:00 AM EST Procedure Visit [facility] [address] [place] [phone] Gerardo Petersen DO [address] [place] [address] [facility] [address] Start: 04-18-2024 End: 04-18-2025 EMG 2 Extremities EMG 2 Extremities Neurology Routine Balance disorder Numbness and tingling Expected: 04/18/2024 (Approximate), Expires: 04/18/2025 [facility] Comment on above: Expected: 04/18/2024 (Approximate), Expires: 04/18/2025 Start: 04-18-2024 End: 04-18-2025 MR Brain WO and W contrast IV MR brain w and wo contrast routine Imaging Routine Abnormal CT of the head Balance disorder Expected: 04/18/2024, Expires: 04/18/2025 [facility] Work Phone: Comment on above: Expected: 04/18/2024 , Expires: 04/18/2025 Start: 04-18-2024 End: 04-18-2025 NVC 9-10 Nerves NVC 9-10 Nerves Neurology Routine Balance disorder Numbness and tingling Expected: 04/18/2024 (Approximate), Expires: 04/18/2025 [facility] Comment on above: Expected: 04/18/2024 (Approximate), Expires: 04/18/2025 Start: 04-18-2024 End: 04-18-2024 Patient encounter procedure 04/18/2024 1:00 PM EDT Office Visit [facility] [address] [place] [id number] Gerardo Petersen DO [address] [place] [address] Arrived [facility] Comment on above: Arrived Start: 1950 Screening for malign ant neoplasm of colon [facility] Immunizations Immunization Date Immunization Notes Care Provider Fa cility 04-03-2022 SARS-CoV-2 (COVID-19 ) [id number] Leo TATE [facility] 12-02-2021 SARS-CoV-2 mRNA (fjorohbasbz-zxha-hrian se) vaccine Leo NILL [facility] 03-23-2021 SARS-CoV-2 (COVID-19 ) mRNA BNT-162b2 vax [facility] Comment on above: Result Comment: 2022: [id number] 08-30-2020 SARS-CoV-2 (COVID-19 ) mRNA BNT-162b2 vax Leo N[facility] Comment on above: Result Comment: 2022: [id number] 08-09-2020 SARS-CoV-2 (COVID-19 ) mRNA BNT-162b2 vax Leo NILL [facility] Comment on above: Result Comment: 2022: [id number] Payers Date Payer Category Payer Private Health Insurance [id number] 2016 Medicare MEDICARE [id number] 2016 Unknown [id number] 1959 Medicare [id number] 1959 Unknown [id number] 1959 Unknown [id number] 1952 Unknown [id number] 2.16.840.1.634371.3.579.2. 593 1952 Unknown [id number] .16.840.1.413958.3.579.2. 593 1952 Unknown [id number] 2.16.840.1.281666.3.579.2. 593 1952 Unknown [id number] 2.16.840.1.253229.3.579.2. 593 1952 Unknown [id number] 2.16.840.1.784897.3.579.2. 593 1952 Unknown [id number] 2.16.840.1.445376.3.579.2. 593 1952 Unknown [id number] 2.16.840.1.482966.3.579.2. 593 1952 Unknown [id number] 2.16.840.1.578496.3.579.2. 593 1952 Unknown [id number] 2.16.840.1.949123.3.579.2. 593 1952 Unknown [id number] 2.16.840.1.221724.3.579.2. 593 1952 Unknown [id number] 2.16.840.1.528904.3.579.2. 593 1952 Unknown [id number] 2.16.840.1.492133.3.579.2. 593 1952 Unknown [id number] 2.16.840.1.430975.3.579.2. 593 1952 Unknown [id number] 2.16.840.1.279119.3.579.2. 593 1952 Unknown [id number] 2.16.840.1.829396.3.579.2. 593 1952 Unknown [id number] 2.16.840.1.550969.3.579.2. 593 1952 Unknown [id number] 2.16.840.1.934222.3.579.2. 593 1952 Unknown [id number] 2.16.840.1.198313.3.579.2. 727 1952 Unknown [id number] 2.16.840.1.087520.3.579.2. 727 1952 Unknown [id number] 2.16.840.1.681349.3.579.2. 727 1952 Unknown [id number] 2.16.840.1.877666.3.579.2. 1259 Social History Date Type Detail Facility Start: 03-18-2023 End: 04-18-2024 Tobacco smoking status Ex-smoker (finding) [facility] Tobacco smoking status Never [facility] Start: 04-18-2024 Sex Assigned At Male F [facility] Tobacco smoking status NHIS Tobacco smoking consumption unknown [facility] Start: 1950 Sex assigned at Male [facility] Start: 04-11-2024 Gender identity Identifies as male gender (finding) [facility] History of tobacco use Current smoker [facility] History of tobacco use Cigarette Smoker [facility] Start: 04-18-2024 Tobacco use and exposure Smokeless tobacco non-user [facility] Start: 04-18-2024 History of Social function [facility] Functional Status Date Assessment Result Facility 03-18-2023 Functional Status N/A [facility] Clinical Notes 03-18-2023 to 04-18-2024 Gerardo Petersen DO - 04/18/2024 1:00 PM EDT Note Date & Type Note Facility 04-18-2024 History of Present illness Narrative Images from the original note were not included. Chief Complaint Patient presents with Syncope Subjective Martin Shaikh Rye, 74 y.o., male who is being seen in outpatient neurological consultation after request of Dr Nieves for syncope./presyncope. The events started in November. He states that he was pushing a shopping cart and felt like he was falling to the left, was dizzy, and off balance. He did not black out. The episodes last about 20 seconds. He states that this has happened again 2 times since the first time. He states that he has a little episode yesterday. He felt lightheaded and weak but did not lose his balance. He denies any warning signs. He has had 3 major events and a few smaller ones. He will have an event once every 2 weeks. He has not completely lost consciousness. He has to grab onto something and then wait it out. He will get lightheaded. The events only occur when he is up and standing. The events occur more in the day time not at night. He does not get any exercise. He drinks Pepsi Zero or coffee. 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 Past Medical History: Diagnosis Date COPD (chronic obstructive pulmonary disease) ([facility]) Diabetes mellitus ([facility]) Past Surgical History: Procedure Laterality Date AORTIC VALVE REPLACEMENT Family History Problem Relation Name Age of Onset Alcohol abuse Other Diabetes Other Hyperlipidemia Other Hypertension Other Social History Tobacco Use Smoking status: Former Types: Cigarettes Smokeless tobacco: Never Substance Use Topics Alcohol use: Not on file Allergies: Patient has no known allergies. General: No fever or chills HEENT: No nasal congestion or runny nose Pulmonary: No shortness of breath or cough Cardiovascular: No chest pain or palpitations GI: No nausea or vomiting : No dysuria or hematuria Musculoskeletal: No new aches or pains or muscle weakness Infectious: no recurrent fevers or infections Dermatologic: No rashes or skin lesions Neurologic: No new headaches or dizziness Vitals: 04/18/24 1259 BP: 138/68 Pulse: 85 SpO2: 97% Body mass index is 35.22 kg/m . weight: 218 lb 3.2 oz Neurologic exam: General: Normal body habitus, cooperative, pleasant Mental status: Awake, alert to person, place and time. Recent and remote memory are intact. Attention and concentration are normal. Fund of knowledge is appropriate for level of education. HEENT: NC/AT Cranial nerves: CN II: Visual upton full to confrontation. No loss of vision CN III, IV, : pupils equal round and reactive to light. Extraocular movements intact. No ptosis present. CN V: Facial sensation is normal. CN VII: Full and symmetric facial movement. CN VIII: Hearing is normal CN IX and X: Palate elevates symmetrically. CN XI: Shoulder shrug is normal bilaterally. CN XII: Tongue is midline without atrophy or fasciculation. Speech: Clear and fluent no aphasia or dysarthria Pronator drift: Negative bilateral upper extremity Coordination: Intact, no signs of dysmetria Good finger to nose and rapid alternating movements Sensory: Sensation is intact to light, temperature touch throughout four extremities. Pinprick intact in all four extremities. Vibratory decreased in a stocking distribution. Motor: LUE 5/5 RUE 5/5 LLE 5/5 RLE 5/5 Tone: Physiologic, no tremor, bradykinesia or rigidity DTR: Bilateral Biceps 2/4 Bilateral BR 2/4 Bilateral Patellar 1/4 No spasticity Gait: Normal to casual gait but has trouble with tandem gait. Romberg's Positive mildly Review and summary of old records: Assessment/Plan Diagnoses and all orders for this visit: Abnormal CT of the head Postural dizziness with presyncope Cerebral hypoperfusion Balance disorder Numbness and tingling 74 year old male Events of presyncope. He has not really had any true syncopal events. He states he feels more lightheaded and off balance. This only occurs when he is standing. He did have an event monitor and the times it was triggered majority he had some mild bradycardia into the mid 50s. Certainly this could have caused some cerebral hypoperfusion. I suspect he may also be having events of hypotension causing cerebral hypoperfusion and the symptoms. He also has some sort of venous occlusion in his chest per his reports. He states he is getting surgery by Dr. Castro however I can not see any record of that at this point in time. We will try to track down what exactly is occluded. He had a CTA of the head and neck that did not show any major occlusions other than retrograde flow on his carotid ultrasound in the right vertebral. May be more some sort of subclavian steal syndrome or other. His blood pressure when he is having 1 of his spells. He needs to drink water and not just Pepsi and coffee all day long. He is not exercising and needs to engage in some regular exercise. Patient is on multiple cardiac medications including Coreg Catapres Cardura that could also slow the dilation and constriction of his vessels causing some dysautonomia. Patient also has signs of some decreased sensation in his feet likely a diabetic neuropathy which also can contribute to dysautonomia. A bigger concern and likely the main reason he was sent here is that his CT of the head when he had the CTA showed a large area of abnormality in the left basal ganglion that is 6.4 x for x 4.6 cm extending from the base of the brain to above the lateral ventricle. Etiology as this is unclear there are vessels that coursed through this area suggesting it is not a mass however there is some mass effect on the lateral ventricle and sylvian fissure. MRI of the brain is recommended. We will go ahead and try to get an MRI of the brain with and without gadolinium. He does have a mechanical valve and is on Coumadin and we will need clearance that he can have an MRI with a mechanical valve. I did not see on his information she any contraindication or indication that he could have an MRI. He needs further workup. Plan We will attempt to get an MRI of the brain with and without gadolinium. He will need clearance with this with his mechanical heart valve. I am hopeful this will give us better information as to what this abnormality on the CT scan is I will order an electromyograph evaluation of the lower extremities to assess for nerve damage such as lumbar radiculopathy, lumbar plexopathy, or peripheral neuropathy. Increase water intake and decrease the pop and coffee /caffeine intake Get a blood pressure cuff and monitor his blood pressure and pulse rate when he is having some of these events We will leave the bradycardia to his implementation technician We will try to get more information as to what vessel is occluded in his chest area as to where he is having surgery He was counseled he needs to take better care of himself he needs to be exercising regularly work on diet exercise and weight loss The diagnosis was all discussed with the patient. All questions were answered and they agreed with the treatment plan. Patient will call if there are any new issues or questions. Pt has been fully educated on their diagnosis, treatment options, follow up plan, and return instructions Return to clinic: 3 weeks documented in this encounter [facility] 03-01-2024 Note [facility] Cardiology Clinic Note Chief Complaint: Patient [...] Conclusion: 1. L (more content not included)... [facility] 02-01-2024 Note car [facility] 02-01-2024 Note [facility] Cardiology Clinic Note Chief Complaint: Patient [...] - MILD I25.10: Atherosclerotic heart disease of [place] coronary artery without angina pectoris 3. Essential hypertension - Established (stable) I10: Essential (primary) hypertensio (more content not included)... [facility] 04-01-2023 Note [phone] [id number] Kiana from [facility] called stating he is ok to hold coumadin 4 days before procedure and will not need bridged, she will call pt tp inform him [facility] Comment on above: Result Comment: Elec tronically Signed By: Norma Barajas\.br\Date and Time Signed: 04/01/23 11:59 EDT 03-18-2023 Note Chief Complaint consultation for positive [...] abd complaints; no abd operations, last colonoscopy 2018 with diverticulosis, poor prep; on baby asa [...] held; Unasyn preop for SBE prophylaxis. 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 [facility] Comment on above: Result Comment: Elec tronically Signed By: BEBETO RODRIGUES, Leo Monae\Date and Time Signed: 03/18/23 14:47 EDT 03-18-2023 Note [facility] Cardiology Clinic Note Chief Complaint: Patient [...] - MILD I25.10: Atherosclerotic heart disease of [place] coronary artery without angina pectoris 3. Essential [...] should problems arise Alayna Kim MD, MPH, FACC, [facility], [facility] Interventional Cardiology Pager Email: [email or web address] Evaluation + Plan note No data available for this section General Surgery [facility] Evaluation note Diagnosis Abnormal CT of the head- Primary Nonspecific (abnormal) findings on radiological and other examination of skull and head Postural dizziness with presyncope Cerebral hypoperfusion Balance disorder Numbness and tingling Disturbance of skin sensation documented in this encounter [facility] No data available for this section General Surgery [facility] note No data available for this section [facility] Surgery [facility] Summary Purpose Family History No Family History Records FoundNo Family History Records FoundNo Family History Records FoundNo Family History Records Found Advance Directives No Advanced Directives Records FoundNo Advanced Directives Records FoundNo Advanced Directives Records FoundNo Advanced Directives Records Found Additional Source Comments (unrecognized sect ion and content) No Status Records FoundNo Status Records FoundNo Status Records FoundNo Status Records Found INFORMATION SOURCE (unrecogn ized section and content) DATE CREATED AUTHOR 12/05/2022 [facility] DATE CREATED AUTHOR AUTHOR'S ORGANIZ ATION 04/28/2023 [facility] DATE CREATED AUTHOR AUTHOR'S ORGANIZ ATION 03/09/2024 [facility] DATE CREATED AUTHOR AUTHOR'S ORGANIZ ATION 04/20/2024 [facility] Patient Care team informatio n (unrecognized section and content) 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 [facility] [employer] [facility]. provides no warranty or guarantee of the accuracy or completeness of information in this document.
[2024-04-27 08:49] LABS: Estimated GFR (African America 54 (>=60 mL/min/1.73m^2); Estimated GFR (Non-African Ame 44 (>=60 mL/min/1.73m^2)
== END 2024-04-27 08:28 | disposition home or self-care (01) ==
LOC: LAB 08:27
PROVIDERS: PCP Family Medicine; Visit Provider Psychiatry & Neurology Neurology
DX: R93.0 Abnormal findings on diagnostic imaging of skull and head, not elsewhere classified (principal); R26.89 Other abnormalities of gait and mobility; R42 Dizziness and giddiness; R55 Syncope and collapse; I67.9 Cerebrovascular disease, unspecified; R20.0 Anesthesia of skin; R20.2 Paresthesia of skin
CPT/HCPCS: 36415; 70553; 82565; 84520

== ENCOUNTER 2024-04-29 13:04 | Outpatient (RCR) | payer MEDICARE, SELFPAY | END 2024-05-28 23:59 | disposition home or self-care (01) | LOC: MM 13:04 | PROVIDERS: PCP Family Medicine; Visit Provider Internal Medicine | DX: Z51.81 Encounter for therapeutic drug level monitoring (principal); Z79.01 Long term (current) use of anticoagulants; I48.91 Unspecified atrial fibrillation | CPT/HCPCS: 85610; G0463 ==

== ENCOUNTER 2024-05-30 05:22 | Outpatient (RCR) | payer MEDICARE, SELFPAY | END 2024-06-28 09:17 | disposition home or self-care (01) | LOC: MM 05:22 | PROVIDERS: PCP Family Medicine; Visit Provider Internal Medicine | DX: Z51.81 Encounter for therapeutic drug level monitoring (principal); Z79.01 Long term (current) use of anticoagulants; I48.91 Unspecified atrial fibrillation ==

== ENCOUNTER 2024-06-02 09:08 | Outpatient (OUT) | payer MEDICARE, SELFPAY ==
--- NOTE | 2024-06-02 09:11 | US_ITS ---
[address] [address] Patient Name: JOSE WEST MRN: [id number] date: 1950 Sex: M Assigned Patient Location: [place] Current Patient Location: [place] Accession/Order Number: [id number] Exam Date: 06/02/2024 09:12 Report Date: 06/02/2024 12:28 At the request of: JUNI BASILIO Procedure: US carotid duplex BI DUPLEX ULTRASOUND EXAMINATION OF THE CAROTID ARTERIES. COMPARISON: None. HISTORY/INDICATIONS: Right carotid subclavian bypass. TECHNIQUE: Bilateral common carotid arteries, extracranial internal and external carotid arteries are evaluated with woodward-scale imaging, color Doppler, and spectral analysis according to a standard protocol. ICA/CCA ratios are calculated with jewelry sales representative peak-systolic velocities and recorded. Vertebral arteries are evaluated in one segment to evaluate for patency and character of flow. Comparison with previous evaluation is performed when available. Unless otherwise specified, all velocities are measured in cm/sec. Carotid stenosis is reported according to validated velocity parameters, similar to NASCET criteria. FINDINGS: Right Carotid: Mild plaque was noted. Velocity measurements as follows: Internal Carotid Artery 80/24 and 127/33. ICA/CCA ratio: 1.8. Left Carotid: Mild plaque was noted. Velocity measurements as follows: Internal Carotid Artery 81/21 and 90/24. ICA/CCA ratio: 1.8. Antegrade flow was seen in both vertebral arteries. There is a patent right carotid to subclavian bypass. No significant velocity elevations were seen to suggest a significant stenosis. Minimal perigraft fluid is noted. Likely postoperative. CONCLUSION: 1. 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 2. Less than 50% stenosis of the left ICA. 3. Vertebral arteries are patent and demonstrate antegrade flow. 4. Patent right subclavian to carotid bypass graft. Electronically authenticated by: Juan ANDERSEN Date: 06/02/2024 12:28
== END 2024-06-02 09:09 | disposition home or self-care (01) ==
LOC: US 09:08
PROVIDERS: PCP Family Medicine; Visit Provider Student in an Organized Health Care Education/Training Program
DX: Z09 Encounter for follow-up examination after completed treatment for conditions other than malignant neoplasm (principal)
CPT/HCPCS: 93880

== ENCOUNTER 2024-06-30 01:44 | Outpatient (RCR) | payer MEDICARE, SELFPAY | END 2024-07-29 14:35 | disposition home or self-care (01) | LOC: MM 01:44 | PROVIDERS: PCP Family Medicine; Visit Provider Internal Medicine | DX: Z51.81 Encounter for therapeutic drug level monitoring (principal); Z79.01 Long term (current) use of anticoagulants; I48.91 Unspecified atrial fibrillation | CPT/HCPCS: 85610; G0463 ==

== ENCOUNTER 2024-08-01 00:40 | Outpatient (RCR) | payer MEDICARE, SELFPAY | END 2024-08-26 10:24 | disposition home or self-care (01) | LOC: MM 00:40 | PROVIDERS: PCP Family Medicine; Visit Provider Internal Medicine | DX: Z51.81 Encounter for therapeutic drug level monitoring (principal); Z79.01 Long term (current) use of anticoagulants; I48.91 Unspecified atrial fibrillation | CPT/HCPCS: 85610; G0463 ==

== ENCOUNTER 2024-08-16 08:27 | Outpatient (OUT) | payer MEDICARE, SELFPAY ==
--- OUTSIDE RECORDS SUMMARY | 2024-08-16 08:40 | XMS_ITS | CCD ---
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 Phone EMANUEL ., DR LAMBERT [...] Unavailabl e JACKIE, DR AMBROSIO Boggs Admitting Unavailaaron e BAILEY .VAL Consulting Unavailable EMANUEL ., DR LAMBERT Attending Unavailable HOY ., DR LAMBERT Admitting Unavailable HOY ., DR LAMBERT Consulting Unavailable HOY ., DR LAMBERT Primary Care Unavailable REINECK, DR AMBROSIO Boggs Consulting Unavailaaron e SNELL, MARTY Consulting Unavailable HOY ., DR LAMBERT Primary Care Unavailable HOY ., DR LAMBERT Admitting Unavailable HOY ., DR LAMBERT Consulting Unavailable HOY ., DR LAMBERT Attending Unavailable LISBON, DR LISBET Santamaria Consulting Unavailable GAGE CARTER Consulting Unavailable HOY ., DR LAMBERT Primary Care Unavailable HOY ., DR LAMBERT Admitting Unavailable HOY ., DR LAMBERT Consulting Unavailable HOY ., DR LAMBERT Attending Unavailable HOY ., DR LAMBERT Primary Care Unavailable ELTAMAOSN, DR FLEMING Consulting Unavailable ELTAMASON, DR FLEMING Attending Unavailable JULIO, DR FLEMING Admitting Unavailable Petra Wooten Primary Care Physician [phone] Leo TATE Attending Unavailable Leo ATTE Attending Unavailable Unavailable Primary Care Provider UnavailPetra Santa MD Primary Care Provider [phone] Alayna Kim MD Unavailable ALAYNA KIM Attending Unavailable ALAYNA KIM Attending Unavailable ALAYNA KIM Attending Unavailable Gerardo Petersen DO Unavailable GERARDO PETERSEN Attending Unavailable GERARDO PETERSEN Attending Unavailable NAYANA PRAKASH Attending Unavailable Allergies Allergy Classification Reported Allergen(s) Allergy Type Date of Onset Reaction(s) Facility (1 source) No Known Medication Allergies; Translations: [No Known Medication Allergies] Propensity to adverse reactions (disorder) [facility] Repository Medications Current Medications Medication Drug Class(es) Dates Sig (Normalized) Sig (Original) aspirin 81 mg delayed release oral tablet (1 source) Platelet Aggregation Inhibitor, Nonsteroidal Anti-inflammatory Drug Start: 03-13-2023 take 1 tablet by mouth once daily aspirin 81 mg Oral EC Tab 81 mg = 1 tab(s), Oral, Daily, Refills(s) 0 Start Date: 03/13/23 Status: Ordered carvedilol 25 mg oral tablet (9 sources) alpha-Adrenergic Benja, beta-Adrenergic Benja Start: 03-13-2023 [...] Status: Ordered chlorthalidone 25 mg oral tablet (9 sources) Thiazide-like Diuretic Start: 02-01-2024 End: 01-31-2025 take 1 tablet by mouth every other day chlorthalidone (Hygroton) 25 MG tablet Take 25 mg by mouth every other day 02/01/2024 01/31/2025 Active Start: 03-13-2023 take 1 tablet by durga th once daily chlorthalidone 25 mg Tab 25 mg = 1 tab(s), Oral, Daily, Refills(s) 0 Start Date: 03/13/23 Status: Ordered citalopram 20 mg oral tablet (9 sources) Serotonin Reuptake Inhibitor Start: 03-18-2023 take 1 tablet by mouth once daily CeleXA 20 mg Tab 20 mg = 1 tab(s), Oral, Daily, Refills(s) 0 Start Date: 03/18/23 Status: Ordered cloNIDine hydrochloride 0.1 mg oral tablet (9 sources) Central alpha-2 Adrenergic Agonist Start: 03-13-2023 take 1 tablet by mouth three times daily cloNIDine 0.1 mg tab 0.1 mg = 1 tab(s), Oral, TID, Refills(s) 0 Start Date: 03/13/23 Status: Ordered clopidogrel 75 mg oral tablet (2 sources) P2Y12 Platelet Inhibitor Start: 05-08-2024 take 1 tablet by mouth in the morning clopidogrel (Plavix) 75 MG tablet TAKE 1 TABLET (75 MG TOTAL) BY MOUTH IN THE MORNING 05/08/2024 Active doxazosin 8 mg oral tablet (9 sources) alpha-Adrenergic Benja Start: 03-13-2023 take 1 tablet by mouth once daily doxazosin 8 mg oral tablet 8 mg = 1 tab(s), Oral, Daily, Refills(s) 0 Start Date: 03/13/23 Status: Ordered gemfibrozil 600 mg oral tablet (9 sources) Peroxisome Proliferator Receptor alpha Agonist Start: 03-13-2023 take 1 tablet by mouth twice daily Lopid 600 mg Tab 600 mg = 1 tab(s), Oral, BID, Refills(s) 0 Start Date: 03/13/23 Status: Ordered glimepiride 1 mg oral tablet (8 sources) Sulfonylurea Start: 04-12-2024 take 1 tablet by mouth before mealtime glimepiride (Amaryl) 1 MG tablet Take 1 mg by mouth in the morning. Take before meals. 04/12/2024 Active lisinopril 40 mg oral tablet (9 sources) Angiotensin Converting Enzyme Inhibitor Start: 03-13-2023 take 1 tablet by mouth once daily lisinopril 40 mg Tab 40 mg = 1 tab(s), Oral, Daily, Refills(s) 0 Start Date: 03/13/23 Status: Ordered pantoprazole 40 mg delayed release oral tablet (9 sources) Proton Pump Inhibitor Start: 03-13-2023 take 1 tablet by mouth once daily Pantoprazole [address] Tab 40 mg = 1 tab(s), Oral, Daily, Refills(s) 0 Start Date: 03/13/23 Status: Ordered rosuvastatin calcium 40 mg oral tablet (8 sources) HMG-CoA Reductase Inhibitor Start: 02-01-2024 End: [...] Ordered warfarin sodium 4 mg oral tablet (9 sources) Vitamin K Antagonist Start: 03-13-2023 warfarin [...] Chronic Conditions associated with dizziness or vertigo (6 sources) Postural dizziness; Translations: [Dizziness and giddiness] Onset: 02-01-2024 04-18-2024 Episodic Congestive heart failure; nonhypertensive (2 sources) Heart failure, unspecified; Translations: [Heart failure] Onset: 06-11-2022 03-13-2023 Chronic Coronary atherosclerosis and other heart disease (3 sources) Old myocardial infarction; Translations: [Coronary arteriosclerosis] [...] [HEADACHE UNSPECIFIED] Onset: 12-25-2021 Heart valve disorders (3 sources) Presence of prosthetic heart valve; Translations: [PRESENCE [...] Onset: 01-01-2022 Episodic Other aftercare (1 source) long-term (current) use of anticoagulants; Translations: [USP CURRNT USE ANTICOAGULANTS] Onset: 11-26-2022 Episodic Other [...] stools 03-13-2023 Episodic Other nervous system disorders (7 sources) Impairment of balance; Translations: [Other abnormalities of gait and mobility] 04-18-2024 Episodic Other nervous system disorders (5 sources) Numbness and tingling sensation of skin; [...] conditions (not mental disorders or infectious disease) (14 sources) Encounter for screening for malignant neoplasm of prostate; Translations: [Encounter for screening for malignant neoplasm of rectum] Onset: 11-17-2022 04-18-2024 Episodic Residual codes; unclassified (1 source) Sleep apnea 03-13-2023 Chronic Residual codes; unclassified (9 sources) Obstructive sleep apnea syndrome; Translations: [Obstructive sleep apnea (adult) (pediatric)] Onset: 04-06-2024 04-06-2024 Chronic Residual codes; unclassified (9 sources) Hypersomnia; Translations: [Hypersomnia, unspecified] Onset: 04-06-2024 [...] 06-08-2022 Episodic Other aftercare (1 source) Other mcc (current) drug therapy; Translations: [OTH USP CURRENT DRUG THERAPY] Onset: 06-11-2022 Episodic Other aftercare (1 source) long-term (current) use of aspirin; Translations: [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] Onset: 01-01-2022 Episodic Other lower respiratory disease (1 source) Shortness of breath; Translations: [SHORTNESS OF BREATH] Onset: 12-24-2021 Episodic Other upper respiratory disease (1 source) Nasal congestion; Translations: [NASAL CONGESTION] Onset: 06-07-2022 Episodic Screening and history of mental health and substance abuse codes (1 source) Personal history of nicotine dependence; Translations: [PERSONAL HISTORY OF NICOTINE DEPEND] Onset: 01-01-2022 Episodic Syncope (2 sources) Syncope and collapse; Translations: [Syncope and collapse] Onset: 03-01-2024 Episodic Unclassified (1 source) CONTACT W/AND (SUSP) EXPOS COVID-19; Translations: [CONTACT W/AND (SUSP) EXPOS COVID-19] Onset: 06-02-2022 Results Test Name Value Interpretation Reference Range Facility Office Visiton 05-30-2024 Follow-up visit [id number] [facility] [place] 1950 M Date Provider Department Center 05/30/2024 Sandra-ALAYNA KIM CARD [facility] Family History Problem Relation Age of Onset No Known Problems Mother No Known Problems Father Family Status - Relation Status Age at Mother Father Level of Service:77834 [place] OFFICE/OUTPATIENT ESTABLISHED LOW MDM 20 MIN Normal [facility] EMG 2 Extremitieson 05-16-20 EMG/NCS BLE 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 CREATININEon 04-27-2024 Creatinine [Mass/Vol] 1.55 mg/dL High 0.70 - 1.30 mg/dL [facility] GFR/1.73 sq M.predicted CKD-EPI (S/P/Bld) [Vol rate/Area] 54 Low >=60 mL/min/1.73m 2 [facility] EGFR-NON AF SLOVAK 44 Low >=60 mL/min/1.73m 2 [facility] 36on 03-08-2024 36 Regarding CTA head and [...] neurology so I will send referral to [facility] neurology in [place]. Patient verbalized understanding and agrees to referral. Normal [facility] Office Visiton 03-01-2024 Follow-up visit [id number] [facility] [place] 1950 M Date Provider Department Center 03/01/2024 ALAYNA RANDALL [facility] Family History Problem Relation Age of Onset No Known Problems Mother No Known Problems Father Family Status - Relation Status Age at Mother Father Level of Service:13263 [place] OFFICE/OUTPATIENT ESTABLISHED MOD MDM 30 MIN [facility] 36on 02-24-2024 36 Spoke with patient and informed him of results. He is scheduled for follow up with Dr. Kim on 03/01 and would like to discuss things with him then. [facility] 36on 02-22-2024 36 Regarding stress bro t from 02/17/2024: MD Sophy Breaux MA Please reassure the patient that his stress test was nonischemic Thank you Dr. Kim, were you able to also review his carotid US and echo from last week? [facility] 36on 02-17-2024 36 I just scanned in patient's lipid and liver profiles that were drawn this morning. I believe you wanted them done in Nov. Can you review them and I'll also let the patient know they'll need to be repeated in 3 months if you still want them. Thanks! [facility] Follow-Upon 02-01-2024 Follow-Up [id number] [facility] [place] 1950 M Date Provider Department Center 02/01/2024 Sandra-ALAYNA KIM CARD [facility] Family History Problem Relation Age of Onset No Known Problems Mother No Known Problems Father Family Status - Relation Status Age at Mother Father Level of Service:87914 [place] OFFICE/OUTPATIENT ESTABLISHED MOD MDM 30 MIN [facility] Outside Colonoscopyon 2022 Outside Colonoscopy [id number] .00TIFF [facility] Reminderson 04-09-2023 Reminders - From: Karlene Stewart LPN To: GSN - Clinical; Sent: 04/09/2023 10:49:10 EDT Show up: 03/09/2033 07:00:00 EDT Subject: colonoscopy recall Due Date/Time: 04/08/2033 07:00:00 EDT Reminder/Recall Patient due for screening colonoscopy 04/08/2033. [facility] Consent for Procedure/Surger yon 03-19-2023 Consent for Procedure/Surgery [id number]# 1.00CD:127 [facility] Facesheeton 03-19-2023 Facesheet [id number]# 1.00CD:127 Normal [facility] Ambulatory Visit Summaryon 0 03-18-2023 Ambulatory Visit [...] longer receiving treatment for. Nicotine dependence Normal [facility] Physician Referralon 023 Physician Referral [id number]. 00CD:127 Normal [facility] INSULINon 11-15-2022 Insulin 20.3 uIU/mL Normal 2.6-24.9 [facility] Comment on above: Performed By: #### I NSULIN #### [facility] [address] [place] [address] Dr. Kamaljit Browning CBC AUTO DIFFon 11-14-2022 BASO # 0.0 103/ul Normal 0.0-0.1 [facility] Comment on above: Performed By: #### C MP, BNP #### [facility] [address] [place] [address] Dr. Kamaljit Browning Basophils/100 WBC (Bld) 0.8 % Normal 0.2-2.0 [facility] Comment on above: Performed By: #### C MP, BNP #### [facility] [address] [place] [address] Dr. Kamaljit Browning EO # 0.1 103/ul Normal 0.0-0.7 [facility] Comment on above: Performed By: #### C MP, BNP #### [facility] [address] [place] [address] Dr. Kamaljit Browning Eosinophils/100 WBC (Bld) 1.7 % Normal 0.9-7.0 [facility] Comment on above: Performed By: #### C MP, BNP #### [facility] [address] [place] [address] Dr. Kamaljit Browning Erythrocyte distribution width (RBC) [Ratio] 12.7 % Normal 11.0-15.0 [facility] Comment on above: Performed By: #### C MP, BNP #### [facility] [address] [place] [address] Dr. Kamaljit Browning Hematocrit (Bld) [Volume fraction] 38.4 % Critically low 42.0-54.0 [facility] Comment on above: Performed By: #### C MP, BNP #### [facility] [address] [place] [address] Dr. Kamaljit Browning Hemoglobin (Bld) [Mass/Vol] 12.8 g/dL Critically low 14.0-18.0 [facility] Comment on above: Performed By: #### C MP, BNP #### [facility] [address] [place] [address] Dr. Kamaljit Browning IG # 0.02 10e3/ul Normal 0.00-0.03 [facility] Comment on above: Performed By: #### C MP, BNP #### [facility] [address] [place] [address] Dr. Kamaljit Browning IG % 0.4 % Normal 0.0-0.5 [facility] Comment on above: Performed By: #### C MP, BNP #### [facility] [address] [place] [address] Dr. Kamaljit Browning LYMPH # 0.8 103/ul Critically low 1.2-3.8 [facility] Comment on above: Performed By: #### C MP, BNP #### [facility] [address] [place] [address] Dr. Kamaljit Browning Lymphocytes/100 WBC (Bld) 15.2 % Critically low 20.5-60.0 [facility] Comment on above: Performed By: #### C MP, BNP #### [facility] [address] [place] [address] Dr. Kamaljit Browning MANUAL DIFF REQ NO Normal [facility] Comment on above: Performed By: #### C MP, BNP #### [facility] [address] [place] [address] Dr. Kamaljit Browning MCH (RBC) [Entitic mass] 30.6 pg Normal 25.9-34.0 [facility] Comment on above: Performed By: #### C MP, BNP #### [facility] [address] [place] [address] Dr. Kamaljit Browning MCHC (RBC) [Mass/Vol] 33.3 g/dL Normal 29.9-35.2 [facility] Comment on above: Performed By: #### C MP, BNP #### [facility] [address] [place] [address] Dr. Kamaljit Browning MCV (RBC) [Entitic vol] 91.9 fL Normal 80.0-94.0 [facility] Comment on above: Performed By: #### C MP, BNP #### [facility] [address] [place] [address] Dr. Kamaljit Browning MONO # 0.5 103/ul Normal 0.3-0.8 [facility] Comment on above: Performed By: #### C MP, BNP #### [facility] [address] [place] [address] Dr. Kamaljit Browning Monocytes/100 WBC (Bld) 8.9 % Normal 1.7-12.0 [facility] Comment on above: Performed By: #### C MP, BNP #### [facility] [address] [place] [address] Dr. Kamaljit Browning NEUT # 3.8 103/ul Normal 1.4-6.5 [facility] Comment on above: Performed By: #### C MP, BNP #### [facility] [address] [address] [address] Kamaljit Browning Neutrophils/100 WBC (Bld) 73.0 % Normal 43.0-75.0 [facility] Comment on above: Performed By: #### C MP, BNP #### [facility] [address] [address] [address] Kamaljit Browning Platelet mean volume (Bld) [Entitic vol] 12.5 fL Normal 9.5-13.5 [facility] Comment on above: Performed By: #### C MP, BNP #### [facility] [address] [address] [address] Kamaljit Browning PLT 126 103/ul Critically low 150-450 [facility] Comment on above: Performed By: #### C MP, BNP #### [facility] [address] [place] [address] Dr. Kamaljit Browning RBC 4.18 106/ul Critically low 4.70-6.10 [facility] Comment on above: Performed By: #### C MP, BNP #### [facility] [address] [place] [address] Dr. Kamaljit Browning WBC 5.2 103/ul Normal 4.0-11.0 [facility] Comment on above: Performed By: #### C MP, BNP #### [facility] [address] [place] [address] Dr. Kamaljit Browning FREE THYROXINE INDEX T7on FTI 2.31 Normal 1.30-4.50 [facility] Comment on above: Performed By: #### C BC #### [facility] [address] [place] [address] Dr. Kamaljit Browning T3U 34.0 % Normal 33.0-40.0 [facility] Comment on above: Performed By: #### C BC #### [facility] [address] [place] [address] Dr. Kamaljit Browning T4 [Mass/Vol] 6.80 ug/dL Normal 4.50-12.10 [facility] Comment on above: Performed By: #### C BC #### [facility] [address] [address] [address] Kamaljit Browning GLYCOHEMOGLOBIN A1Con 2022 ADA RECOMMENDATION SEE BELOW Normal [facility] Comment on above: Result Comment: ADA RECOMMENDED LIMIT 4.0 - 6.0 ADA THERAPEUTIC TARGET < 7.0 ACTION SUGGESTED > 7.0 Performed By: #### A 1C #### [facility] [address] [address] [address] Kamaljit Browning Glucose [Mass/Vol] 154 mg/dL Normal [facility] Comment on above: Performed By: #### A 1C #### [facility] [address] [place] [address] Dr. Kamaljit Browning HbA1c (Bld) [Mass fraction] 7.0 % Critically high 4.5-6.2 [facility] Comment on above: Performed By: #### A 1C #### [facility] [address] [place] [address] Dr. Kamaljit Browning LIPID PROFILEon 11-14-2022 CHOL-HDL RATIO NORM SEE BELOW Normal [facility] Comment on above: Result Comment: 3.3 - 4.4 LOW RISK 4.4 - 7.1 AVERAGE RISK 7.1 - 11.0 MODERATE RISK >11.0 HIGH RISK Performed By: #### A 1C #### [facility] [address] [place] [address] Dr. Kamaljit Browning Cholesterol [Mass/Vol] 148 mg/dL Normal <=200 [facility] Comment on above: Performed By: #### A 1C #### [facility] [address] [place] [address] Dr. Kamaljit Browning Cholesterol in HDL [Mass/Vol] 41 mg/dL Normal 40-60 [facility] Comment on above: Performed By: #### A 1C #### [facility] [address] [place] [address] Dr. Kamaljit Browning Cholesterol in LDL [Mass/Vol] 81.6 mg/dL Normal [facility] Comment on above: Performed By: #### A 1C #### [facility] [address] [place] [address] Dr. Kamaljit Browning Cholesterol.total/Ch olesterol in HDL [Mass ratio] 3.6 {ratio} Normal [facility] Comment on above: Performed By: #### A 1C #### [facility] [address] [address] [address] Kamaljit Browning HDL NORMAL > or = 60 mg/dl - LO W CARDIOVASCULAR RISK <40 mg/dl - HIGH CARDIOVASCULAR RISK Normal [facility] Comment on above: Performed By: #### A 1C #### [facility] [address] [address] [address] Kamaljit Browning LDL CALC NORMAL SEE BELOW Normal [facility] Comment on above: Result Comment: <100 mg/dl OPTIMAL 100 - 129 mg/dl NEAR OR ABOVE OPTIMAL 130 - 159 mg/dl BORDERLINE HIGH 160 - 189 mg/dl HIGH >190 mg/dl VERY HIGH Performed By: #### A 1C #### [facility] [address] [address] [address] Kamaljit Browning Triglyceride [Mass/Vol] 127 mg/dL Normal <=150 [facility] Comment on above: Performed By: #### A 1C #### [facility] [address] [address] [address] Kamaljit Browning VLDL CALC 25.4 mg/dL Normal [facility] Comment on above: Performed By: #### A 1C #### [facility] [address] [address] [address] Kamaljit Browning PROF 14(COMP METB)on 023 Albumin [Mass/Vol] 4.2 g/dL Normal 3.4-5.0 [facility] Comment on above: Performed By: #### A 1C #### [facility] [address] [address] [address] Kamaljit Browning Albumin/Globulin [Mass ratio] 1.3 {ratio} Normal [facility] Comment on above: Performed By: #### A 1C #### [facility] [address] [address] [address] Kamaljit Browning ALP [Catalytic activity/Vol] 79 U/L Normal 46-116 [facility] Comment on above: Performed By: #### A 1C #### [facility] [address] [address] [address] Kamaljit Browning ALT [Catalytic activity/Vol] 27 U/L Normal 16-63 [facility] Comment on above: Performed By: #### A 1C #### [facility] [address] [address] [address] Kamaljit Browning Anion gap [Moles/Vol] 15.0 mmol/L Normal [facility] Comment on above: Performed By: #### A 1C #### [facility] [address] [address] [address] Kamaljit Browning AST [Catalytic activity/Vol] 23 U/L Normal 15-37 [facility] Comment on above: Performed By: #### A 1C #### [facility] [address] [place] [address] Dr. Kamaljit Browning Bilirubin [Mass/Vol] 0.3 mg/dL Normal 0.2-1.0 [facility] Comment on above: Performed By: #### A 1C #### [facility] [address] [place] [address] Dr. Kamaljit Browning Calcium [Mass/Vol] 9.0 mg/dL Normal 8.5-10.1 [facility] Comment on above: Performed By: #### A 1C #### [facility] [address] [place] [address] Dr. Kamaljit Browning Chloride [Moles/Vol] 105 mmol/L Normal 98-107 [facility] Comment on above: Performed By: #### A 1C #### [facility] [address] [place] [address] Dr. Kamaljit Browning CO2 [Moles/Vol] 24.7 mmol/L Normal 21.0-32.0 [facility] Comment on above: Performed By: #### A 1C #### [facility] [address] [place] [address] Dr. Kamaljit Browning Creatinine [Mass/Vol] 1.55 mg/dL Critically high 0.70-1.30 [facility] Comment on above: Performed By: #### A 1C #### [facility] [address] [address] [address] Kamaljit Browning EGFR-AF SLOVAK 54 mL/min/1.73m2 Critically low >=60 [facility] Comment on above: Performed By: #### A 1C #### [facility] [address] [address] [address] Kamaljit Browning EGFR-NON AF SLOVAK 45 mL/min/1.73m2 Critically low >=60 [facility] Comment on above: Performed By: #### A 1C #### [facility] [address] [address] [address] Kamaljit Browning Globulin (S) [Mass/Vol] 3.3 g/dL Normal [facility] Comment on above: Performed By: #### A 1C #### [facility] [address] [address] [address] Kamaljit Browning Glucose [Mass/Vol] 129 mg/dL Critically high 74-106 [facility] Comment on above: Performed By: #### A 1C #### [facility] [address] [address] [address] Kamaljit Browning Potassium [Moles/Vol] 4.7 mmol/L Normal 3.5-5.1 [facility] Comment on above: Performed By: #### A 1C #### [facility] [address] [place] [address] Dr. Kamaljit Browning Protein [Mass/Vol] 7.5 g/dL Normal 6.4-8.2 [facility] Comment on above: Performed By: #### A 1C #### [facility] [address] [address] [address] Kamaljit Browning Sodium [Moles/Vol] 140 mmol/L Normal 136-145 [facility] Comment on above: Performed By: #### A 1C #### [facility] [address] [address] [address] Kamaljit Browning Urea nitrogen [Mass/Vol] 30.0 mg/dL Critically high 7.0-18.0 [facility] Comment on above: Performed By: #### A 1C #### [facility] [address] [address] [address] Kamaljit Browning Urea nitrogen/Creatinine [Mass ratio] 19.4 mg/mg Normal [facility] Comment on above: Performed By: #### A 1C #### [facility] [address] [place] [address] Dr. Kamaljit Browning TSHon 11-14-2022 TSH 1.597 uIU/mL Normal 0.358-3.740 [facility] Comment on above: Performed By: #### A 1C #### [facility] [address] [place] [address] Dr. Kamaljit Browning URIC ACID SERUMon 11-14-2022 Urate [Mass/Vol] 9.4 mg/dL Critically high 3.5-7.2 [facility] Comment on above: Performed By: #### C BC #### [facility] [address] [place] [address] Dr. Kamaljit Browning OCC BLD IMMUNO SCREENon 10-27 OCCULT BLOOD Positive Abnormal NEGATIVE [facility] Comment on above: Performed By: #### C MP, BNP #### [facility] [address] [place] [address] Dr. Kamaljit Browning POINT OF CARE GLUCOSEon 05-29 Glucose [Mass/Vol] 329 mg/dL Critically high 74-106 [facility] Comment on above: Performed By: #### A 1C #### [facility] [address] [place] [address] Dr. Kamaljit Browning [facility]on SARS-CoV-2 (COVID-19) RNA SOURAV+probe Ql (Unsp spec) Not detected Normal NOT DETECTED [facility] Comment on above: Result Comment: When [...] for this test is supported by the [place] of [employer] and Human Service's declaration that [...] used). Performed By: #### A 1C #### [facility] [address] [place] [address] Dr. Kamaljit Browning INFLUENZA A AND B AGon 06-02 INFLUANEGH SEE BELOW Normal [facility] Comment on above: Result Comment: Nega tive for Flu A protein angiten. Infection due to Flu A cannot be ruled out. Flu A angiten in the sample may be below the detection limit of the test. Performed By: #### C BC #### [facility] [address] [place] [address] Dr. Kamaljit Browning INFLUBNEGH SEE BELOW Normal [facility] Comment on above: Result Comment: Nega tive for Flu B protein antigen. Infection due to Flu B cannot be ruled out. Flu B antigen in the sample may be below the detection limit of the test. Performed By: #### C BC #### [facility] [address] [place] [address] Dr. Kamaljit Browning INFLUENZA A AG Negative Normal NEGATIVE SEE COMMENT [facility] Comment on above: Performed By: #### C BC #### [facility] [address] [place] [address] Dr. Kamaljit Browning INFLUENZA B AG Negative Normal NEGATIVE SEE COMMENT [facility] Comment on above: Performed By: #### C BC #### [facility] [address] [place] [address] Dr. Kamaljit Browning INTERNAL CONTROLS Within Normal Limits Normal Wi thin Normal Limits [facility] Comment on above: Performed By: #### C BC #### [facility] [address] [place] [address] Dr. Kamaljit Browning PROF CHEM 8 (BAS METB)on Anion gap [Moles/Vol] 13.1 mmol/L Normal [facility] Comment on above: Performed By: #### C BC #### [facility] [address] [address] [address] Kamaljit Browning Calcium [Mass/Vol] 8.9 mg/dL Normal 8.5-10.1 [facility] Comment on above: Performed By: #### C BC #### [facility] [address] [address] [address] Kamaljit Browning Chloride [Moles/Vol] 105 mmol/L Normal 98-107 [facility] Comment on above: Performed By: #### C BC #### [facility] [address] [address] [address] Kamaljit Browning CO2 [Moles/Vol] 27.3 mmol/L Normal 21.0-32.0 [facility] Comment on above: Performed By: #### C BC #### [facility] [address] [address] [address] Kamaljit Browning Creatinine [Mass/Vol] 1.28 mg/dL Normal 0.70-1.30 [facility] Comment on above: Performed By: #### C BC #### [facility] [address] [address] [address] Kamaljit Browning EGFR-AF SLOVAK >60 Normal >=60 [facility] Comment on above: Performed By: #### C BC #### [facility] [address] [address] [address] Kamaljit Browning EGFR-NON AF SLOVAK 56 mL/min/1.73m2 Critically low >=60 [facility] Comment on above: Performed By: #### C BC #### [facility] [address] [address] [address] Kamaljit Browning Glucose [Mass/Vol] 119 mg/dL Critically high 74-106 [facility] Comment on above: Performed By: #### C BC #### [facility] [address] [address] [address] Kamaljit Browning Potassium [Moles/Vol] 4.4 mmol/L Normal 3.5-5.1 [facility] Comment on above: Performed By: #### C BC #### [facility] [address] [address] [address] Kamaljit Browning Sodium [Moles/Vol] 141 mmol/L Normal 136-145 [facility] Comment on above: Performed By: #### C BC #### [facility] [address] [address] [address] Kamaljit Browning Urea nitrogen [Mass/Vol] 20.0 mg/dL Critically high 7.0-18.0 [facility] Comment on above: Performed By: #### C BC #### [facility] [address] [address] [address] Kamaljit Browning Urea nitrogen/Creatinine [Mass ratio] 15.6 mg/mg Normal [facility] Comment on above: Performed By: #### C BC #### [facility] [address] [place] [address] Dr. Kamaljit Browning METANEPHRINES PLASMA FREEon 01-18-2022 Metanephrine, Pl 46.2 pg/mL Normal 0.0-88.0 [facility] Comment on above: Performed By: #### C MP, BNP #### [facility] [address] [address] [address] Kamaljit Browning Normetanephrine, Pl 33.2 pg/mL Normal 0.0-285.2 [facility] Comment on above: Performed By: #### C MP, BNP #### [facility] [address] [place] [address] Dr. Kamaljit Browning ALDOSTERONE: RENIN RATIOon 0 01-08-2022 Aldos/Renin Ratio UPTCAL Normal [facility] Comment on above: Result Comment: Unab le to calculate result since non-numeric result obtained for component test. Units: ng/dL per ng/mL/hr Performed By: #### A LDOREN #### [facility] [address] [place] [address] Dr. Kamaljit Browning Aldosterone <1.0 Normal 0.0-30.0 [facility] Comment on above: Performed By: #### A LDOREN #### [facility] [address] [place] [address] Dr. Kamaljit Browning Renin Activity, Plasma <0.167 Critically low 0.167-5.380 [facility] Comment on above: Performed By: #### A LDOREN #### [facility] [address] [place] [address] Dr. Kamaljit Browning CATECHOLAMINES FRAC, PLASMAo n 12-31-2021 Dopamine, Pl <30 Normal 0-48 [facility] Comment on above: Performed By: #### C MP, BNP #### [facility] [address] [place] [address] Dr. Kamaljit Browning Epinephrine, Pl 58 pg/mL Normal 0-62 [facility] Comment on above: Performed By: #### C MP, BNP #### [facility] [address] [place] [address] Dr. Kamaljit Browning Norepinephrine, Pl 246 pg/mL Normal 0-874 [facility] Comment on above: Performed By: #### C MP, BNP #### [facility] [address] [place] [address] Dr. Kamaljit Browning BNPon 12-26-2021 Natriuretic peptide B (Bld) [Mass/Vol] 126.0 pg/mL Normal <=900.0 [facility] Comment on above: Performed By: #### C MP, BNP #### [facility] [address] [place] [address] Dr. Kamaljit Browning CBC AUTO DIFFon 12-26-2021 BASO # 0.1 103/ul Normal 0.0-0.1 [facility] Comment on above: Performed By: #### C BC #### [facility] [address] [place] [address] Dr. Kamaljit Browning Basophils/100 WBC (Bld) 0.9 % Normal 0.2-2.0 [facility] Comment on above: Performed By: #### C BC #### [facility] [address] [place] [address] Dr. Kamaljit Browning EO # 0.1 103/ul Normal 0.0-0.7 [facility] Comment on above: Performed By: #### C BC #### [facility] [address] [place] [address] Dr. Kamaljit Browning Eosinophils/100 WBC (Bld) 1.0 % Normal 0.9-7.0 [facility] Comment on above: Performed By: #### C BC #### [facility] [address] [place] [address] Dr. Kamaljit Browning Erythrocyte distribution width (RBC) [Ratio] 12.1 % Normal 11.0-15.0 [facility] Comment on above: Performed By: #### C BC #### [facility] [address] [place] [address] Dr. Kamaljit Browning Hematocrit (Bld) [Volume fraction] 39.2 % Critically low 42.0-54.0 [facility] Comment on above: Performed By: #### C BC #### [facility] [address] [place] [address] Dr. Kamaljit Browning Hemoglobin (Bld) [Mass/Vol] 13.2 g/dL Critically low 14.0-18.0 [facility] Comment on above: Performed By: #### C BC #### [facility] [address] [place] [address] Dr. Kamaljit Browning IG # 0.01 10e3/ul Normal 0.00-0.03 [facility] Comment on above: Performed By: #### C BC #### [facility] [address] [place] [address] Dr. Kamaljit Browning IG % 0.2 % Normal 0.0-0.5 [facility] Comment on above: Performed By: #### C BC #### [facility] [address] [place] [address] Dr. Kamaljit Browning LYMPH # 1.1 103/ul Critically low 1.2-3.8 [facility] Comment on above: Performed By: #### C BC #### [facility] [address] [place] [address] Dr. Kamaljit Browning Lymphocytes/100 WBC (Bld) 18.5 % Critically low 20.5-60.0 [facility] Comment on above: Performed By: #### C BC #### [facility] [address] [place] [address] Dr. Kamaljit Browning MANUAL DIFF REQ NO Normal [facility] Comment on above: Performed By: #### C BC #### [facility] [address] [place] [address] Dr. Kamaljit Browning MCH (RBC) [Entitic mass] 30.5 pg Normal 25.9-34.0 [facility] Comment on above: Performed By: #### C BC #### [facility] [address] [place] [address] Dr. Kamaljit Browning MCHC (RBC) [Mass/Vol] 33.7 g/dL Normal 29.9-35.2 [facility] Comment on above: Performed By: #### C BC #### [facility] [address] [place] [address] Dr. Kamaljit Browning MCV (RBC) [Entitic vol] 90.5 fL Normal 80.0-94.0 [facility] Comment on above: Performed By: #### C BC #### [facility] [address] [place] [address] Dr. Kamaljit Browning MONO # 0.4 103/ul Normal 0.3-0.8 [facility] Comment on above: Performed By: #### C BC #### [facility] [address] [place] [address] Dr. Kamaljit Browning Monocytes/100 WBC (Bld) 7.7 % Normal 1.7-12.0 [facility] Comment on above: Performed By: #### C BC #### [facility] [address] [place] [address] Dr. Kamaljit Browning NEUT # 4.1 103/ul Normal 1.4-6.5 [facility] Comment on above: Performed By: #### C BC #### [facility] [address] [place] [address] Dr. Kamaljit Browning Neutrophils/100 WBC (Bld) 71.7 % Normal 43.0-75.0 [facility] Comment on above: Performed By: #### C BC #### [facility] [address] [place] [address] Dr. Kamaljit Browning Platelet mean volume (Bld) [Entitic vol] 12.9 fL Normal 9.5-13.5 [facility] Comment on above: Performed By: #### C BC #### [facility] [address] [place] [address] Dr. Kamaljit Browning PLT 129 103/ul Critically low 150-450 [facility] Comment on above: Performed By: #### C BC #### [facility] [address] [place] [address] Dr. Kamaljit Browning RBC 4.33 106/ul Critically low 4.70-6.10 [facility] Comment on above: Performed By: #### C BC #### [facility] [address] [place] [address] Dr. Kamaljit Browning WBC 5.7 103/ul Normal 4.0-11.0 [facility] Comment on above: Performed By: #### C BC #### [facility] [address] [place] [address] Dr. Kamaljit Browning PROF 14(COMP METB)on 022 Albumin [Mass/Vol] 3.9 g/dL Normal 3.4-5.0 [facility] Comment on above: Performed By: #### C MP, BNP #### [facility] [address] [place] [address] Dr. Kamaljit Browning Albumin/Globulin [Mass ratio] 1.2 {ratio} Normal [facility] Comment on above: Performed By: #### C MP, BNP #### [facility] [address] [place] [address] Dr. Kamaljit Browning ALP [Catalytic activity/Vol] 83 U/L Normal 46-116 [facility] Comment on above: Performed By: #### C MP, BNP #### [facility] [address] [place] [address] Dr. Kamaljit Browning ALT [Catalytic activity/Vol] 30 U/L Normal 16-63 [facility] Comment on above: Performed By: #### C MP, BNP #### [facility] [address] [place] [address] Dr. Kamaljit Browning Anion gap [Moles/Vol] 12.6 mmol/L Normal [facility] Comment on above: Performed By: #### C MP, BNP #### [facility] [address] [place] [address] Dr. Kamaljit Browning AST [Catalytic activity/Vol] 28 U/L Normal 15-37 [facility] Comment on above: Performed By: #### C MP, BNP #### [facility] [address] [place] [address] Dr. Kamaljit Browning Bilirubin [Mass/Vol] 0.6 mg/dL Normal 0.2-1.0 [facility] Comment on above: Performed By: #### C MP, BNP #### [facility] [address] [place] [address] Dr. Kamaljit Browning Calcium [Mass/Vol] 8.9 mg/dL Normal 8.5-10.1 [facility] Comment on above: Performed By: #### C MP, BNP #### [facility] [address] [place] [address] Dr. Kamaljit Browning Chloride [Moles/Vol] 107 mmol/L Normal 98-107 [facility] Comment on above: Performed By: #### C MP, BNP #### [facility] [address] [place] [address] Dr. Kamaljit Browning CO2 [Moles/Vol] 26.4 mmol/L Normal 21.0-32.0 [facility] Comment on above: Performed By: #### C MP, BNP #### [facility] [address] [place] [address] Dr. Kamaljit Browning Creatinine [Mass/Vol] 1.11 mg/dL Normal 0.70-1.30 [facility] Comment on above: Performed By: #### C MP, BNP #### [facility] [address] [place] [address] Dr. Kamaljit Browning EGFR-AF SLOVAK >60 Normal >=60 [facility] Comment on above: Performed By: #### C MP, BNP #### [facility] [address] [place] [address] Dr. Kamaljit Browning EGFR-NON AF SLOVAK >60 Normal >=60 [facility] Comment on above: Performed By: #### C MP, BNP #### [facility] [address] [place] [address] Dr. Kamaljit Browning Globulin (S) [Mass/Vol] 3.2 g/dL Normal [facility] Comment on above: Performed By: #### C MP, BNP #### [facility] [address] [place] [address] Dr. Kamaljit Browning Glucose [Mass/Vol] 112 mg/dL Critically high 74-106 [facility] Comment on above: Performed By: #### C MP, BNP #### [facility] [address] [place] [address] Dr. Kamaljit Browning Potassium [Moles/Vol] 4.0 mmol/L Normal 3.5-5.1 [facility] Comment on above: Performed By: #### C MP, BNP #### [facility] [address] [place] [address] Dr. Kamaljit Browning Protein [Mass/Vol] 7.1 g/dL Normal 6.4-8.2 [facility] Comment on above: Performed By: #### C MP, BNP #### [facility] [address] [place] [address] Dr. Kamaljit Browning Sodium [Moles/Vol] 142 mmol/L Normal 136-145 [facility] Comment on above: Performed By: #### C MP, BNP #### [facility] [address] [place] [address] Dr. Kamaljit Browning Urea nitrogen [Mass/Vol] 15.0 mg/dL Normal 7.0-18.0 [facility] Comment on above: Performed By: #### C MP, BNP #### [facility] [address] [place] [address] Dr. Kamaljit Browning Urea nitrogen/Creatinine [Mass ratio] 13.5 mg/mg Normal [facility] Comment on above: Performed By: #### C MP, BNP #### [facility] [address] [place] [address] Dr. Kamaljit Browning PROTIMEon 12-26-2021 INR Coag (PPP) [Relative time] 3.98 {INR} Normal [facility] Comment on above: Performed By: #### A 1C #### [facility] [address] [place] [address] Dr. Kamaljit Browning INR GUIDELINES SEE BELOW Normal [facility] Comment on above: Result Comment: NILDA RED INR: 2.0 - 3.0 CONDITIONS NOT LISTED BELOW 2.5 - 3.5 FOR PROSTHETIC HEART VALVE REPLACEMENT 2.5 - 3.5 RECURRENT THROMBOSIS Performed By: #### A 1C #### [facility] [address] [address] [address] Kamaljit Browning PT Coag (PPP) [Time] 39.3 s Critically high 9.0-11.6 [facility] Comment on above: Performed By: #### A 1C #### [facility] [address] [place] [address] Dr. Kamaljit Browning T3, TOTAL (TRIIODOTHYRONINE) on 12-26-2021 T3, TOTAL 67 ng/dL Critically low 71-180 [facility] Comment on above: Performed By: #### C BC #### [facility] [address] [place] [address] Dr. Kamaljit Browning US VASCULAR ORG CMPLon 12-26 VASCULAR ORG CMPL EXAMINATION: US KIDNEYS, US [...] BRANCH Date: 2021-12-26 09:34 Normal [facility] BNPon 12-25-2021 Natriuretic peptide B (Bld) [Mass/Vol] 106.0 pg/mL Normal <=900.0 [facility] Comment on above: Performed By: #### C MP, BNP #### [facility] [address] [place] [address] Dr. Kamaljit Browning CARDIAC GABRIELLA 3-6on 2 CK [Catalytic activity/Vol] 92 U/L Normal 39-308 [facility] Comment on above: Performed By: #### C MP, BNP #### [facility] [address] [place] [address] Dr. Kamaljit Browning CK.MB [Mass/Vol] 1.08 ng/mL Normal <=3.60 [facility] Comment on above: Performed By: #### C MP, BNP #### [facility] [address] [place] [address] Dr. Kamaljit Browning HSTROP 21.7 pg/mL Normal 4.0-76.1 [facility] Comment on above: Result Comment: CUT- OFF POINTS HAVE BEEN ESTABLISHED BASED ON THE FOURTH UNIVERSAL DEFINITIONS OF MYOCARDIAL INFARCTION. THE UPPER REFERENCE LIMIT (URL) OF TROPONIN, DEFINED THE 99TH PERCENTILE OF cTnI DISTRIBUTION IN A REFERENCE POPULATION, HAS BEEN CONFIRMED THE DECISION THRESHOLD FOR MA DIAGNOSIS. Performed By: #### C MP, BNP #### [facility] [address] [place] [address] Dr. Kamaljit Browning CK [Catalytic activity/Vol] 98 U/L Normal 39-308 [facility] Comment on above: Performed By: #### C MP, BNP #### [facility] [address] [place] [address] Dr. Kamaljit Browning CK.MB [Mass/Vol] 1.25 ng/mL Normal <=3.60 [facility] Comment on above: Performed By: #### C MP, BNP #### [facility] [address] [place] [address] Dr. Kamaljit Browning HSTROP 23.6 pg/mL Normal 4.0-76.1 [facility] Comment on above: Result Comment: CUT- OFF POINTS HAVE BEEN ESTABLISHED BASED ON THE FOURTH UNIVERSAL DEFINITIONS OF MYOCARDIAL INFARCTION. THE UPPER REFERENCE LIMIT (URL) OF TROPONIN, DEFINED THE 99TH PERCENTILE OF cTnI DISTRIBUTION IN A REFERENCE POPULATION, HAS BEEN CONFIRMED THE DECISION THRESHOLD FOR MA DIAGNOSIS. Performed By: #### C MP, BNP #### [facility] [address] [place] [address] Dr. Kamaljit Browning CARDIAC GABRIELLA ADMITon 022 CK [Catalytic activity/Vol] 105 U/L Normal 39-308 [facility] Comment on above: Performed By: #### C MP, BNP #### [facility] [address] [place] [address] Dr. Kamaljit Browning CK.MB [Mass/Vol] 0.99 ng/mL Normal <=3.60 [facility] Comment on above: Performed By: #### C MP, BNP #### [facility] [address] [place] [address] Dr. Kamaljit Browning HSTROP 24.9 pg/mL Normal 4.0-76.1 [facility] Comment on above: Result Comment: CUT- OFF POINTS HAVE BEEN ESTABLISHED BASED ON THE FOURTH UNIVERSAL DEFINITIONS OF MYOCARDIAL INFARCTION. THE UPPER REFERENCE LIMIT (URL) OF TROPONIN, DEFINED THE 99TH PERCENTILE OF cTnI DISTRIBUTION IN A REFERENCE POPULATION, HAS BEEN CONFIRMED THE DECISION THRESHOLD FOR MA DIAGNOSIS. Performed By: #### C MP, BNP #### [facility] [address] [place] [address] Dr. Kamaljit Browning SANDI 51 ng/mL Normal 16-96 [facility] Comment on above: Performed By: #### C MP, BNP #### [facility] [address] [place] [address] Dr. Kamaljit Browning CBC AUTO DIFFon 06-29-2022 BASO # 0.1 103/ul Normal 0.0-0.1 [facility] Comment on above: Performed By: #### C BC #### [facility] [address] [place] [address] Dr. Kamaljit Browning Basophils/100 WBC (Bld) 0.8 % Normal 0.2-2.0 [facility] Comment on above: Performed By: #### C BC #### [facility] [address] [place] [address] Dr. Kamaljit Browning EO # 0.1 103/ul Normal 0.0-0.7 [facility] Comment on above: Performed By: #### C BC #### [facility] [address] [place] [address] Dr. Kamaljit Browning Eosinophils/100 WBC (Bld) 1.0 % Normal 0.9-7.0 [facility] Comment on above: Performed By: #### C BC #### [facility] [address] [place] [address] Dr. Kamaljit Browning Erythrocyte distribution width (RBC) [Ratio] 12.1 % Normal 11.0-15.0 [facility] Comment on above: Performed By: #### C BC #### [facility] [address] [place] [address] Dr. Kamaljit Browning Hematocrit (Bld) [Volume fraction] 42.2 % Normal 42.0-54.0 [facility] Comment on above: Performed By: #### C BC #### [facility] [address] [place] [address] Dr. Kamlajit Browning Hemoglobin (Bld) [Mass/Vol] 14.2 g/dL Normal 14.0-18.0 [facility] Comment on above: Performed By: #### C BC #### [facility] [address] [place] [address] Dr. Kamaljit Browning IG # 0.02 10e3/ul Normal 0.00-0.03 [facility] Comment on above: Performed By: #### C BC #### [facility] [address] [place] [address] Dr. Kamaljit Browning IG % 0.3 % Normal 0.0-0.5 [facility] Comment on above: Performed By: #### C BC #### [facility] [address] [place] [address] Dr. Kamaljit Browning LYMPH # 0.9 103/ul Critically low 1.2-3.8 [facility] Comment on above: Performed By: #### C BC #### [facility] [address] [place] [address] Dr. Kamaljit Browning Lymphocytes/100 WBC (Bld) 14.7 % Critically low 20.5-60.0 [facility] Comment on above: Performed By: #### C BC #### [facility] [address] [place] [address] Dr. Kamaljit Browning MANUAL DIFF REQ NO Normal [facility] Comment on above: Performed By: #### C BC #### [facility] [address] [place] [address] Dr. Kamaljit Browning MCH (RBC) [Entitic mass] 30.4 pg Normal 25.9-34.0 [facility] Comment on above: Performed By: #### C BC #### [facility] [address] [place] [address] Dr. Kamaljit Browning MCHC (RBC) [Mass/Vol] 33.6 g/dL Normal 29.9-35.2 [facility] Comment on above: Performed By: #### C BC #### [facility] [address] [place] [address] Dr. Kamaljit Browning MCV (RBC) [Entitic vol] 90.4 fL Normal 80.0-94.0 [facility] Comment on above: Performed By: #### C BC #### [facility] [address] [place] [address] Dr. Kamaljit Browning MONO # 0.4 103/ul Normal 0.3-0.8 [facility] Comment on above: Performed By: #### C BC #### [facility] [address] [place] [address] Dr. Kamaljit Browning Monocytes/100 WBC (Bld) 6.5 % Normal 1.7-12.0 [facility] Comment on above: Performed By: #### C BC #### [facility] [address] [address] [address] Kamaljit Browning NEUT # 4.6 103/ul Normal 1.4-6.5 [facility] Comment on above: Performed By: #### C BC #### [facility] [address] [address] [address] Kamaljit Browning Neutrophils/100 WBC (Bld) 76.7 % Critically high 43.0-75.0 [facility] Comment on above: Performed By: #### C BC #### [facility] [address] [address] [address] Kamaljit Browning Platelet mean volume (Bld) [Entitic vol] 12.2 fL Normal 9.5-13.5 [facility] Comment on above: Performed By: #### C BC #### [facility] [address] [place] [address] Dr. Kamaljit Browning PLT 120 103/ul Critically low 150-450 [facility] Comment on above: Performed By: #### C BC #### [facility] [address] [place] [address] Dr. Kamaljit Browning RBC 4.67 106/ul Critically low 4.70-6.10 [facility] Comment on above: Performed By: #### C BC #### [facility] [address] [place] [address] Dr. Kamaljit Browning WBC 6.0 103/ul Normal 4.0-11.0 [facility] Comment on above: Performed By: #### C BC #### [facility] [address] [place] [address] Dr. Kamaljit Browning CULTURE URINEon 12-25-2021 CULTURE URINE Culture Observations : NO GROWTH. Normal [facility] Comment on above: Performed By: #### C MP, BNP #### [facility] [address] [place] [address] Dr. Kamaljit Browning Covid-19 PCR (CVDTB)on 11-28 SARS-CoV-2 (COVID-19) RNA SOURAV+probe Ql (Unsp spec) Not detected Normal NOT DETECTED [facility] Comment on above: Result Comment: When [...] for this test is supported by the [employer] and [employer]'s declaration that [...] used). Performed By: #### C BC #### [facility] [address] [place] [address] Dr. Kamaljit Browning ECHOCARDIO M/2D COMPLETEon 0 12-25-2021 ECHOCARDIO M/2D COMPLETE Patient: MARTIN WEST Exam Date: 12/25/2021 : 1950 Gender:M Ordering : DR PETRA WOOTEN . Admission #: [id number] Family : DR ALAYNA KIM M.D. Order #: [id number] CLICK HERE TO VIEW EXAM ECHOCARDIOGRAM REPORT [...] Area(A4C): 22.50 cm2 Left Atrium Systolic Volume(A2C): 26126 mm3 Left Atrium Systolic Volume(A4C): 40576 mm3 Mitral Valve MV E to A Ratio: 1 Deceleration [place]: 5860 mm/s2 Mitral Valve A-Wave Peak Velocity: [...] Reddy M.D. on 12/25/2021 at 16:48 Normal [facility] MAGNESIUMon 12-25-2021 Magnesium [Mass/Vol] 2.2 mg/dL Normal 1.8-2.4 [facility] Comment on above: Performed By: #### C MP, BNP #### [facility] [address] [place] [address] Dr. Kamaljit Browning PHOSPHORUSon 12-25-2021 Phosphate [Mass/Vol] 3.2 mg/dL Normal 2.6-4.7 [facility] Comment on above: Performed By: #### C MP, BNP #### [facility] [address] [place] [address] Dr. Kamaljit Browning PROF 14(COMP METB)on 022 Albumin [Mass/Vol] 4.4 g/dL Normal 3.4-5.0 [facility] Comment on above: Performed By: #### C MP, BNP #### [facility] [address] [place] [address] Dr. Kamaljit Browning Albumin/Globulin [Mass ratio] 1.2 {ratio} Normal [facility] Comment on above: Performed By: #### C MP, BNP #### [facility] [address] [place] [address] Dr. Kamaljit Browning ALP [Catalytic activity/Vol] 95 U/L Normal 46-116 [facility] Comment on above: Performed By: #### C MP, BNP #### [facility] [address] [address] [address] Kamaljit Browning ALT [Catalytic activity/Vol] 30 U/L Normal 16-63 [facility] Comment on above: Performed By: #### C MP, BNP #### [facility] [address] [place] [address] Dr. Kamaljit Browning Anion gap [Moles/Vol] 12.0 mmol/L Normal [facility] Comment on above: Performed By: #### C MP, BNP #### [facility] [address] [place] [address] Dr. Kamaljit Browning AST [Catalytic activity/Vol] 27 U/L Normal 15-37 [facility] Comment on above: Performed By: #### C MP, BNP #### [facility] [address] [place] [address] Dr. Kamaljit Browning Bilirubin [Mass/Vol] 0.8 mg/dL Normal 0.2-1.0 [facility] Comment on above: Performed By: #### C MP, BNP #### [facility] [address] [place] [address] Dr. Kamaljit Browning Calcium [Mass/Vol] 9.1 mg/dL Normal 8.5-10.1 [facility] Comment on above: Performed By: #### C MP, BNP #### [facility] [address] [place] [address] Dr. Kamaljit Browning Chloride [Moles/Vol] 107 mmol/L Normal 98-107 [facility] Comment on above: Performed By: #### C MP, BNP #### [facility] [address] [place] [address] Dr. Kamaljit Browning CO2 [Moles/Vol] 27.6 mmol/L Normal 21.0-32.0 [facility] Comment on above: Performed By: #### C MP, BNP #### [facility] [address] [place] [address] Dr. Kamaljit Browning Creatinine [Mass/Vol] 1.01 mg/dL Normal 0.70-1.30 [facility] Comment on above: Performed By: #### C MP, BNP #### [facility] [address] [place] [address] Dr. Kamaljit Browning EGFR-AF SLOVAK >60 Normal >=60 [facility] Comment on above: Performed By: #### C MP, BNP #### [facility] [address] [place] [address] Dr. Kamaljit Browning EGFR-NON AF SLOVAK >60 Normal >=60 [facility] Comment on above: Performed By: #### C MP, BNP #### [facility] [address] [address] [address] Kamaljit Browning Globulin (S) [Mass/Vol] 3.6 g/dL Normal [facility] Comment on above: Performed By: #### C MP, BNP #### [facility] [address] [place] [address] Dr. Kamaljit Browning Glucose [Mass/Vol] 123 mg/dL Critically high 74-106 [facility] Comment on above: Performed By: #### C MP, BNP #### [facility] [address] [place] [address] Dr. Kamaljit Browning Potassium [Moles/Vol] 4.6 mmol/L Normal 3.5-5.1 [facility] Comment on above: Performed By: #### C MP, BNP #### [facility] [address] [place] [address] Dr. Kamaljit Browning Protein [Mass/Vol] 8.0 g/dL Normal 6.4-8.2 [facility] Comment on above: Performed By: #### C MP, BNP #### [facility] [address] [place] [address] Dr. Kamaljit Browning Sodium [Moles/Vol] 142 mmol/L Normal 136-145 [facility] Comment on above: Performed By: #### C MP, BNP #### [facility] [address] [place] [address] Dr. Kamaljit Browning Urea nitrogen [Mass/Vol] 12.0 mg/dL Normal 7.0-18.0 [facility] Comment on above: Performed By: #### C MP, BNP #### [facility] [address] [place] [address] Dr. Kamaljit Browning Urea nitrogen/Creatinine [Mass ratio] 11.9 mg/mg Normal [facility] Comment on above: Performed By: #### C MP, BNP #### [facility] [address] [place] [address] Dr. Kamaljit Browning PROTIMEon 12-25-2021 INR Coag (PPP) [Relative time] 3.75 {INR} Normal [facility] Comment on above: Performed By: #### P T, PTT #### [facility] [address] [place] [address] Dr. Kamaljit Browning INR GUIDELINES SEE BELOW Normal [facility] Comment on above: Result Comment: NILDA RED INR: 2.0 - 3.0 CONDITIONS NOT LISTED BELOW 2.5 - 3.5 FOR PROSTHETIC HEART VALVE REPLACEMENT 2.5 - 3.5 RECURRENT THROMBOSIS Performed By: #### P T, PTT #### [facility] [address] [place] [address] Dr. Kamaljit Browning PT Coag (PPP) [Time] 37.1 s Critically high 9.0-11.6 [facility] Comment on above: Performed By: #### P T, PTT #### [facility] [address] [place] [address] Dr. Kamaljit Browning PTTon 12-25-2021 aPTT Coag (Bld) [Time] 55.4 s Critically high 22.3-36.2 [facility] Comment on above: Performed By: #### P T, PTT #### [facility] [address] [place] [address] Dr. Kamaljit Browning T4on 12-25-2021 T4 [Mass/Vol] 8.90 ug/dL Normal 4.50-12.10 [facility] Comment on above: Performed By: #### C MP, BNP #### [facility] [address] [place] [address] Dr. Kamaljit Browning TSHon 12-25-2021 TSH 0.778 uIU/mL Normal 0.358-3.740 [facility] Comment on above: Performed By: #### C MP, BNP #### [facility] [address] [place] [address] Dr. Kamaljit Browning UA RANDOM W/MICROSCOPICon BACTERIA NONE SEEN Normal NONE SEEN [facility] Comment on above: Performed By: #### A 1C #### [facility] [address] [place] [address] Dr. Kamaljit Browning Bilirubin Ql (U) Negative Normal NEGATIVE [facility] Comment on above: Performed By: #### A 1C #### [facility] [address] [place] [address] Dr. Kamaljit Browning CAST NONE SEEN Normal NONE SEEN [facility] Comment on above: Performed By: #### A 1C #### [facility] [address] [place] [address] Dr. Kamaljit Browning Clarity (U) CLEAR Normal CLEAR [facility] Comment on above: Performed By: #### A 1C #### [facility] [address] [place] [address] Dr. Kamaljit Browning Color (U) LT. YELLOW Normal YELLOW [facility] Comment on above: Performed By: #### A 1C #### [facility] [address] [place] [address] Dr. Kamaljit Browning Crystals LM Nom (Urine sed) NONE SEEN Normal NONE SEEN [facility] Comment on above: Performed By: #### A 1C #### [facility] [address] [place] [address] Dr. Kamaljit Browning Epithelial cells LM Ql (Urine sed) NONE SEEN Normal NONE SEEN /RARE [facility] Comment on above: Performed By: #### A 1C #### [facility] [address] [place] [address] Dr. Kamaljit Browning Glucose Ql (U) Negative Normal NEGATIVE [facility] Comment on above: Performed By: #### A 1C #### [facility] [address] [place] [address] Dr. Kamaljit Browning Hemoglobin Ql (U) Negative Normal NEGATIVE [facility] Comment on above: Performed By: #### A 1C #### [facility] [address] [place] [address] Dr. Kamaljit Browning Ketones Ql (U) Negative Normal NEGATIVE [facility] Comment on above: Performed By: #### A 1C #### [facility] [address] [place] [address] Dr. Kamaljit Browning LEUKOCYTES Negative Normal NEGATIVE [facility] Comment on above: Performed By: #### A 1C #### [facility] [address] [place] [address] Dr. Kamaljit Browning MUCOUS NONE SEEN Normal NONE SEEN [facility] Comment on above: Performed By: #### A 1C #### [facility] [address] [place] [address] Dr. Kamaljit Browning Nitrite Ql (U) Negative Normal NEGATIVE [facility] Comment on above: Performed By: #### A 1C #### [facility] [address] [place] [address] Dr. Kamaljit Browning pH (U) 6.0 [pH] Normal 5-9 [facility] Comment on above: Performed By: #### A 1C #### [facility] [address] [place] [address] Dr. Kamaljit Browning RBC NONE SEEN Abnormal 0-2 [facility] Comment on above: Performed By: #### A 1C #### [facility] [address] [place] [address] Dr. Kamaljit Browning SPEC GRAVITY 1.010 Normal 1.005-<=1.025 [facility] Comment on above: Performed By: #### A 1C #### [facility] [address] [place] [address] Dr. Kamaljit Browning UA PROTEIN Negative Normal NEGATIVE/ TRACE [facility] Comment on above: Performed By: #### A 1C #### [facility] [address] [place] [address] Dr. Kamaljit Browning Urobilinogen Qn (U) 0.2 {Mari'U}/dL Normal 0.2 - 1. 0 [facility] Comment on above: Performed By: #### A 1C #### [facility] [address] [place] [address] Dr. Kamaljit Browning WBC NONE SEEN Normal NONE SEEN [facility] Comment on above: Performed By: #### A 1C #### [facility] [address] [address] [address] Kamaljit Browning CBC AUTO DIFFon 12-18-2021 BASO # 0.0 103/ul Normal 0.0-0.1 [facility] Comment on above: Performed By: #### C BC #### [facility] [address] [address] [address] Kamaljit Browning Basophils/100 WBC (Bld) 0.6 % Normal 0.2-2.0 [facility] Comment on above: Performed By: #### C BC #### [facility] [address] [address] [address] Kamaljit Browning EO # 0.1 103/ul Normal 0.0-0.7 [facility] Comment on above: Performed By: #### C BC #### [facility] [address] [place] [address] Dr. Kamaljit Browning Eosinophils/100 WBC (Bld) 1.1 % Normal 0.9-7.0 [facility] Comment on above: Performed By: #### C BC #### [facility] [address] [place] [address] Dr. Kamaljit Browning Erythrocyte distribution width (RBC) [Ratio] 12.5 % Normal 11.0-15.0 [facility] Comment on above: Performed By: #### C BC #### [facility] [address] [place] [address] Dr. Kamaljit Browning Hematocrit (Bld) [Volume fraction] 40.5 % Critically low 42.0-54.0 [facility] Comment on above: Performed By: #### C BC #### [facility] [address] [place] [address] Dr. Kamaljit Browning Hemoglobin (Bld) [Mass/Vol] 13.5 g/dL Critically low 14.0-18.0 [facility] Comment on above: Performed By: #### C BC #### [facility] [address] [place] [address] Dr. Kamaljit Browning IG # 0.02 10e3/ul Normal 0.00-0.03 [facility] Comment on above: Performed By: #### C BC #### [facility] [address] [place] [address] Dr. Kamaljit Browning IG % 0.3 % Normal 0.0-0.5 [facility] Comment on above: Performed By: #### C BC #### [facility] [address] [place] [address] Dr. Kamaljit Browning LYMPH # 1.0 103/ul Critically low 1.2-3.8 [facility] Comment on above: Performed By: #### C BC #### [facility] [address] [place] [address] Dr. Kamaljit Browning Lymphocytes/100 WBC (Bld) 14.8 % Critically low 20.5-60.0 [facility] Comment on above: Performed By: #### C BC #### [facility] [address] [place] [address] Dr. Kamaljit Browning MANUAL DIFF REQ NO Normal [facility] Comment on above: Performed By: #### C BC #### [facility] [address] [place] [address] Dr. Kamaljit Browning MCH (RBC) [Entitic mass] 30.3 pg Normal 25.9-34.0 [facility] Comment on above: Performed By: #### C BC #### [facility] [address] [place] [address] Dr. Kamaljit Browning MCHC (RBC) [Mass/Vol] 33.3 g/dL Normal 29.9-35.2 [facility] Comment on above: Performed By: #### C BC #### [facility] [address] [place] [address] Dr. Kamaljit Browning MCV (RBC) [Entitic vol] 91.0 fL Normal 80.0-94.0 [facility] Comment on above: Performed By: #### C BC #### [facility] [address] [place] [address] Dr. Kamaljit Browning MONO # 0.6 103/ul Normal 0.3-0.8 [facility] Comment on above: Performed By: #### C BC #### [facility] [address] [place] [address] Dr. Kamaljit Browning Monocytes/100 WBC (Bld) 9.0 % Normal 1.7-12.0 [facility] Comment on above: Performed By: #### C BC #### [facility] [address] [place] [address] Dr. Kamaljit Browning NEUT # 5.2 103/ul Normal 1.4-6.5 [facility] Comment on above: Performed By: #### C BC #### [facility] [address] [place] [address] Dr. Kamaljit Browning Neutrophils/100 WBC (Bld) 74.2 % Normal 43.0-75.0 [facility] Comment on above: Performed By: #### C BC #### [facility] [address] [place] [address] Dr. Kamaljit Browning Platelet mean volume (Bld) [Entitic vol] 12.7 fL Normal 9.5-13.5 [facility] Comment on above: Performed By: #### C BC #### [facility] [address] [place] [address] Dr. Kamaljit Browning PLT 114 103/ul Critically low 150-450 [facility] Comment on above: Performed By: #### C BC #### [facility] [address] [place] [address] Dr. Kamaljit Browning RBC 4.45 106/ul Critically low 4.70-6.10 [facility] Comment on above: Performed By: #### C BC #### [facility] [address] [place] [address] Dr. Kamaljit Browning WBC 7.0 103/ul Normal 4.0-11.0 [facility] Comment on above: Performed By: #### C BC #### [facility] [address] [place] [address] Dr. Kamaljit Browning MAGNESIUMon 12-18-2021 Magnesium [Mass/Vol] 2.1 mg/dL Normal 1.8-2.4 [facility] Comment on above: Performed By: #### C BC #### [facility] [address] [address] [address] Kamaljit Browning PROF CHEM 8 (BAS METB)on Anion gap [Moles/Vol] 13.2 mmol/L Normal [facility] Comment on above: Performed By: #### C BC #### [facility] [address] [address] [address] Kamaljit Browning Calcium [Mass/Vol] 8.7 mg/dL Normal 8.5-10.1 [facility] Comment on above: Performed By: #### C BC #### [facility] [address] [address] [address] Kamaljit Browning Chloride [Moles/Vol] 108 mmol/L Critically high 98-107 [facility] Comment on above: Performed By: #### C BC #### [facility] [address] [place] [address] Dr. Kamaljit Browning CO2 [Moles/Vol] 25.7 mmol/L Normal 21.0-32.0 [facility] Comment on above: Performed By: #### C BC #### [facility] [address] [place] [address] Dr. Kamaljit Browning Creatinine [Mass/Vol] 1.10 mg/dL Normal 0.70-1.30 [facility] Comment on above: Performed By: #### C BC #### [facility] [address] [place] [address] Dr. Kamaljit Browning EGFR-AF SLOVAK >60 Normal >=60 [facility] Comment on above: Performed By: #### C BC #### [facility] [address] [address] [address] Kamaljit Browning EGFR-NON AF SLOVAK >60 Normal >=60 [facility] Comment on above: Performed By: #### C BC #### [facility] [address] [place] [address] Dr. Kamaljit Browning Glucose [Mass/Vol] 118 mg/dL Critically high 74-106 [facility] Comment on above: Performed By: #### C BC #### [facility] [address] [address] [address] Kamaljit Browning Potassium [Moles/Vol] 3.9 mmol/L Normal 3.5-5.1 [facility] Comment on above: Performed By: #### C BC #### [facility] [address] [address] [address] Kamaljit Browning Sodium [Moles/Vol] 143 mmol/L Normal 136-145 [facility] Comment on above: Performed By: #### C BC #### [facility] [address] [address] [address] Kamaljit Browning Urea nitrogen [Mass/Vol] 12.0 mg/dL Normal 7.0-18.0 [facility] Comment on above: Performed By: #### C BC #### [facility] [address] [place] [address] Dr. Kamaljit Browning Urea nitrogen/Creatinine [Mass ratio] 10.9 mg/mg Normal [facility] Comment on above: Performed By: #### C BC #### [facility] [address] [place] [address] Dr. Kamaljit Browning PROTIMEon 12-18-2021 INR Coag (PPP) [Relative time] 2.47 {INR} Normal [facility] Comment on above: Performed By: #### C MP, BNP #### [facility] [address] [place] [address] Dr. Kamaljit Browning INR GUIDELINES SEE BELOW Normal [facility] Comment on above: Result Comment: NILDA RED INR: 2.0 - 3.0 CONDITIONS NOT LISTED BELOW 2.5 - 3.5 FOR PROSTHETIC HEART VALVE REPLACEMENT 2.5 - 3.5 RECURRENT THROMBOSIS Performed By: #### C MP, BNP #### [facility] [address] [place] [address] Dr. Kamaljit Browning PT Coag (PPP) [Time] 25.1 s Critically high 9.0-11.6 [facility] Comment on above: Performed By: #### C MP, BNP #### [facility] [address] [place] [address] Dr. Kamaljit Browning TSHon 12-18-2021 TSH 1.850 uIU/mL Normal 0.358-3.740 [facility] Comment on above: Performed By: #### C BC #### [facility] [address] [place] [address] Dr. Kamaljit Browning BNPon 12-17-2021 Natriuretic peptide B (Bld) [Mass/Vol] 50.0 pg/mL Normal <=900.0 The [facility] Comment on above: Performed By: #### A 1C #### [facility] [address] [place] [address] Dr. Kamaljit Browning CBC AUTO DIFFon 12-17-2021 BASO # 0.1 103/ul Normal 0.0-0.1 The [facility] Comment on above: Performed By: #### C BC #### [facility] [address] [place] [address] Dr. Kamaljit Browning Basophils/100 WBC (Bld) 1.0 % Normal 0.2-2.0 [facility] Comment on above: Performed By: #### C BC #### [facility] [address] [place] [address] Dr. Kamaljit Browning EO # 0.1 103/ul Normal 0.0-0.7 [facility] Comment on above: Performed By: #### C BC #### [facility] [address] [place] [address] Dr. Kamaljit Browning Eosinophils/100 WBC (Bld) 1.2 % Normal 0.9-7.0 The [facility] Comment on above: Performed By: #### C BC #### [facility] [address] [place] [address] Dr. Kamaljit Browning Erythrocyte distribution width (RBC) [Ratio] 12.4 % Normal 11.0-15.0 [facility] Comment on above: Performed By: #### C BC #### [facility] [address] [place] [address] Dr. Kamaljit Browning Hematocrit (Bld) [Volume fraction] 43.8 % Normal 42.0-54.0 [facility] Comment on above: Performed By: #### C BC #### [facility] [address] [place] [address] Dr. Kamaljit Browning Hemoglobin (Bld) [Mass/Vol] 14.4 g/dL Normal 14.0-18.0 [facility] Comment on above: Performed By: #### C BC #### [facility] [address] [place] [address] Dr. Kamaljit Browning IG # 0.02 10e3/ul Normal 0.00-0.03 [facility] Comment on above: Performed By: #### C BC #### [facility] [address] [place] [address] Dr. Kamaljit Browning IG % 0.3 % Normal 0.0-0.5 [facility] Comment on above: Performed By: #### C BC #### [facility] [address] [place] [address] Dr. Kamaljit Browning LYMPH # 1.1 103/ul Critically low 1.2-3.8 [facility] Comment on above: Performed By: #### C BC #### [facility] [address] [place] [address] Dr. Kamaljti Browning Lymphocytes/100 WBC (Bld) 18.5 % Critically low 20.5-60.0 [facility] Comment on above: Performed By: #### C BC #### [facility] [address] [place] [address] Dr. Kamaljit Browning MANUAL DIFF REQ NO Normal [facility] Comment on above: Performed By: #### C BC #### [facility] [address] [place] [address] Dr. Kamaljit Browning MCH (RBC) [Entitic mass] 30.2 pg Normal 25.9-34.0 [facility] Comment on above: Performed By: #### C BC #### [facility] [address] [place] [address] Dr. Kamaljit Browning MCHC (RBC) [Mass/Vol] 32.9 g/dL Normal 29.9-35.2 [facility] Comment on above: Performed By: #### C BC #### [facility] [address] [place] [address] Dr. Kamaljit Browning MCV (RBC) [Entitic vol] 91.8 fL Normal 80.0-94.0 [facility] Comment on above: Performed By: #### C BC #### [facility] [address] [place] [address] Dr. Kamaljit Browning MONO # 0.4 103/ul Normal 0.3-0.8 [facility] Comment on above: Performed By: #### C BC #### [facility] [address] [place] [address] Dr. Kamaljit Browning Monocytes/100 WBC (Bld) 7.4 % Normal 1.7-12.0 [facility] Comment on above: Performed By: #### C BC #### [facility] [address] [place] [address] Dr. Kamaljit Browning NEUT # 4.1 103/ul Normal 1.4-6.5 [facility] Comment on above: Performed By: #### C BC #### [facility] [address] [place] [address] Dr. Kamaljit Browning Neutrophils/100 WBC (Bld) 71.6 % Normal 43.0-75.0 [facility] Comment on above: Performed By: #### C BC #### [facility] [address] [place] [address] Dr. Kamaljit Browning Platelet mean volume (Bld) [Entitic vol] 12.4 fL Normal 9.5-13.5 [facility] Comment on above: Performed By: #### C BC #### [facility] [address] [place] [address] Dr. Kamaljit Browning PLT 111 103/ul Critically low 150-450 [facility] Comment on above: Performed By: #### C BC #### [facility] [address] [place] [address] Dr. Kamaljit Browning RBC 4.77 106/ul Normal 4.70-6.10 [facility] Comment on above: Performed By: #### C BC #### [facility] [address] [place] [address] Dr. Kamaljit Browning WBC 5.8 103/ul Normal 4.0-11.0 [facility] Comment on above: Performed By: #### C BC #### [facility] [address] [place] [address] Dr. Kamaljit Browning [facility]28 SARS-CoV-2 (COVID-19) RNA SOURAV+probe Ql (Unsp spec) Not detected Normal NOT DETECTED [facility] Comment on above: Result Comment: When [...] for this test is supported by the [employer] of Health and Human Service's declaration that [...] Performed By: #### C MP, BNP #### [facility] [address] [place] [address] Dr. Kamaljit Browning PROF 14(COMP METB)on 022 Albumin [Mass/Vol] 4.3 g/dL Normal 3.4-5.0 [facility] Comment on above: Performed By: #### A 1C #### [facility] [address] [place] [address] Dr. Kamaljit Browning Albumin/Globulin [Mass ratio] 1.2 {ratio} Normal [facility] Comment on above: Performed By: #### A 1C #### [facility] [address] [place] [address] Dr. Kamaljit Browning ALP [Catalytic activity/Vol] 115 U/L Normal 46-116 [facility] Comment on above: Performed By: #### A 1C #### [facility] [address] [address] [address] Kamaljit Browning ALT [Catalytic activity/Vol] 35 U/L Normal 16-63 [facility] Comment on above: Performed By: #### A 1C #### [facility] [address] [address] [address] Kamaljit Browning Anion gap [Moles/Vol] 15.0 mmol/L Normal [facility] Comment on above: Performed By: #### A 1C #### [facility] [address] [address] [address] Kamaljit Browning AST [Catalytic activity/Vol] 26 U/L Normal 15-37 [facility] Comment on above: Performed By: #### A 1C #### [facility] [address] [place] [address] Dr. Kamaljit Browning Bilirubin [Mass/Vol] 0.5 mg/dL Normal 0.2-1.0 [facility] Comment on above: Performed By: #### A 1C #### [facility] [address] [place] [address] Dr. Kamaljit Browning Calcium [Mass/Vol] 8.6 mg/dL Normal 8.5-10.1 [facility] Comment on above: Performed By: #### A 1C #### [facility] [address] [place] [address] Dr. Kamaljit Browning Chloride [Moles/Vol] 106 mmol/L Normal 98-107 [facility] Comment on above: Performed By: #### A 1C #### [facility] [address] [place] [address] Dr. Kamaljit Browning CO2 [Moles/Vol] 24.0 mmol/L Normal 21.0-32.0 [facility] [place] [facility] Comment on above: Performed By: #### A 1C #### [facility] [address] [place] [address] Dr. Kamaljit Browning Creatinine [Mass/Vol] 1.02 mg/dL Normal 0.70-1.30 [facility] Comment on above: Performed By: #### A 1C #### [facility] [address] [place] [address] Dr. Kamaljit Browning EGFR-AF SLOVAK >60 Normal >=60 [facility] Comment on above: Performed By: #### A 1C #### [facility] [address] [place] [address] Dr. Kamaljit Browning EGFR-NON AF SLOVAK >60 Normal >=60 [facility] Comment on above: Performed By: #### A 1C #### [facility] [address] [place] [address] Dr. Kamaljit Browning Globulin (S) [Mass/Vol] 3.5 g/dL Normal [facility] Comment on above: Performed By: #### A 1C #### [facility] [address] [place] [address] Dr. Kamaljit Browning Glucose [Mass/Vol] 138 mg/dL Critically high 74-106 [facility] [place] Comment on above: Performed By: #### A 1C #### [facility] [address] [place] [address] Dr. Kamaljit Browning Potassium [Moles/Vol] 4.0 mmol/L Normal 3.5-5.1 [facility] Comment on above: Performed By: #### A 1C #### [facility] [address] [place] [address] Dr. Kamaljit Browning Protein [Mass/Vol] 7.8 g/dL Normal 6.4-8.2 [facility] Comment on above: Performed By: #### A 1C #### [facility] [address] [place] [address] Dr. Kamaljit Browning Sodium [Moles/Vol] 141 mmol/L Normal 136-145 [facility] Comment on above: Performed By: #### A 1C #### [facility] [address] [place] [address] Dr. Kamaljit Browning Urea nitrogen [Mass/Vol] 13.0 mg/dL Normal 7.0-18.0 [facility] Comment on above: Performed By: #### A 1C #### [facility] [address] [place] [address] Dr. Kamaljit Browning Urea nitrogen/Creatinine [Mass ratio] 12.7 mg/mg Normal [facility] Comment on above: Performed By: #### A 1C #### [facility] [address] [place], [place] [address] Dr. Kamaljit Browning TROPONIN, HIGH SENSITIVITYon 12-17-2021 HSTROP 11.1 pg/mL Normal 4.0-76.1 [facility] Comment on above: Result Comment: CUT- OFF POINTS HAVE BEEN ESTABLISHED BASED ON THE FOURTH UNIVERSAL DEFINITIONS OF MYOCARDIAL INFARCTION. THE UPPER REFERENCE LIMIT (URL) OF TROPONIN, DEFINED THE 99TH PERCENTILE OF cTnI DISTRIBUTION IN A REFERENCE POPULATION, HAS BEEN CONFIRMED THE DECISION THRESHOLD FOR MA DIAGNOSIS. Performed By: #### A 1C #### [facility] [address] [place], [place] [address] Dr. Kamaljit Browning Vital Signs Date Time Vital Sign Value Performing Clinician Facility 06-15-2024 16:21-0500 Body height 167.6 cm Nayana Prakash [employer] Work Phone: [facility] 06-15-2024 16:21-0500 Body mass index (BMI) [Ratio] 33.89 kg/m2 Nayana Prakash [employer] Work Phone: [facility] 06-15-2024 16:21-0500 Body weight 95.25 kg Nayana Prakash [employer] Work Phone: [facility] 06-15-2024 16:21-0500 Diastolic blood pressure 65 mm[Hg] Nayana Prakash [employer] Work Phone: [facility] 06-15-2024 16:21-0500 Heart rate 55 /min Nayana Prakash [employer] Work Phone: [facility] 06-15-2024 16:21-0500 Systolic blood pressure 138 mm[Hg] Nayana Prakash [employer] Work Phone: [facility] 04-18-2024 12:59-0400 Body height 167.6 cm Gerardo Rickie DO Work Phone: [facility] 04-18-2024 12:59-0400 Body mass index (BMI) [Ratio] 35.22 kg/m2 Gerardo Rickie DO Work Phone: [facility] 04-18-2024 12:59-0400 Body weight 98.97 kg Gerardo Rickie DO Work Phone: [facility] 04-18-2024 12:59-0400 Diastolic blood pressure 68 mm[Hg] Gerardo Rickie DO Work Phone: [facility] 04-18-2024 12:59-0400 Heart rate 85 /min Gerardo Rickie DO Work Phone: [facility] 04-18-2024 12:59-0400 SaO2% (BldA) [Mass fraction] 97 % Gerardo Rickie DO Work Phone: [facility] 04-18-2024 12:59-0400 Systolic blood pressure 138 mm[Hg] Gerardo Rickie DO Work Phone: [facility] 03-18-2023 14:09-0400 Blood Pressure Location Leo ADAMSL [facility] 03-18-2023 14:09-0400 Diastolic blood pressure 86 mm[Hg] Leo ADAMSL [facility] [place] 03-18-2023 14:09-0400 Heart rate 70 /min Leo ADAMSL [facility] Surgery [place] 03-18-2023 14:09-0400 Respiratory rate 16 /min Leo ADAMSL [facility] Surgery [place] 03-18-2023 14:09-0400 Systolic blood pressure 130 mm[Hg] Leo ADAMSL [facility] Encounters Encounter Date Encounter Type Care Provider Facility Start: 06-15-2024 End: 06-15-2024 Office outpatient visit 25 minutes Nayana Prakash NP Work Phone: [facility] Comment on above: Abnormal CT of the h ead (Primary Dx); Postural dizziness with presyncope; Balance disorder; Numbness and tingling; Abnormal MRI of head Start: 06-15-2024 End: 06-15-2024 ambulatory NAYANA PRAKASH Not Available Start: 06-15-2024 End: 06-15-2024 Bamboo flowsheet Nayana Mehtaajr [employer] Work Phone: [facility] [place] [facility] Start: 06-15-2024 End: 06-15-2024 Bamboo flowsheet Nayana Mehtaajr [employer] Work Phone: [facility] [place] [facility] Start: 05-30-2024 End: 05-30-2024 ambulatory [facility] Start: 05-16-2024 End: 05-16-2024 Bamboo flowsheet Gerardo Rickie DO Work Phone: [facility] [place] [facility] Start: 05-16-2024 End: 05-16-2024 Bamboo flowsheet Gerardo Rickie DO Work Phone: [facility] [place] [facility] Start: 05-16-2024 End: 05-16-2024 Patient encounter procedure Gerardo Rickie DO Work Phone: [facility] [place] [facility] Comment on above: Balance disorder; Numbness and tingling Start: 05-16-2024 End: 05-16-2024 ambulatory GERARDO PETERSEN Not Available Start: 04-27-2024 End: 04-27-2024 Clinisync Result Encounter Gerardo Rickie DO Work Phone: [facility] Unsolicited Start: 04-27-2024 End: 04-27-2024 Clinisync Result Encounter Gerardo Rickie DO Work Phone: [facility] Unsolicited Start: 04-18-2024 End: 04-18-2024 Bamboo flowsheet Gerardo Rickie DO Work Phone: [facility] [place] [facility] Start: 04-18-2024 End: 04-18-2024 Bamboo flowsheet Gerardo Rickie DO Work Phone: [facility] [place] [facility] Start: 04-18-2024 End: 04-18-2024 Office outpatient new 45 minutes Gerardo Rickie DO Work Phone: [facility] [place] [facility] Comment on above: Abnormal CT of the h ead (Primary Dx); Postural dizziness with presyncope; Cerebral hypoperfusion; Balance disorder; Numbness and tingling Start: 04-18-2024 End: 04-18-2024 ambulatory GERARDO PETERSEN Not Available Start: 03-01-2024 End: 03-01-2024 ambulatory [facility] Start: 02-01-2024 End: 02-01-2024 ambulatory [facility] Start: 04-08-2023 End: 04-09-2023 ambulatory Leo TATE Facility:[id number] Start: 03-18-2023 End: 03-19-2023 ambulatory Leo TATE Facility:[facility] Start: 03-18-2023 End: 03-18-2023 Patient encounter procedure Leo TATE [facility]/Paula [facility] Start: 03-06-2023 ambulatory Leo TATE Facility:[facility] [...] Facility:[facility] Start: 03-30-2022 End: 04-28-2022 ambulatory DIEZSHIRLENE ROBERTSSowmya Facility:[facility] Start: 03-12-2022 End: 03-13-[address] PETRA WOOTEN . Facility:[facility] Start: 02-27-2022 End: 03-29-2022 ambulatory SHAIKH Juan Luis ROBERTSSowmya Facility:[facility]1 Start: 01-27-2022 End: 02-26-2022 ambulatory DIEZSHIRLENE ROBERTSSowmya Facility:[facility] Start: 12-27-2021 End: 01-24-[address] PETRA WOOTEN . Facility:[facility] Start: 12-25-2021 End: 12-26-[address] PETRA WOOTEN . Facility: Start: 12-17-2021 End: 12-18-2021 Evaluation and management of inpatient DR PETRA WOOTEN . Facility: Procedures Date Procedure Procedure Detail Performing Clinician Start: 05-16-2024 End: 05-16-2024 Needle emg ea extremty w/paraspinl area complete Gerardo Rickie DO Work Phone: Start: 04-27-2024 ALL BUN Gerardo Ori ner DO Work Phone: Start: 04-27-2024 TBH CREATININE Gerardo D prince DO Work Phone: Start: 11-14-[address] LIZZIE WOOTEN . Comment on above: Performed By: #### C MP, BNP #### [facility] [address] [place] [address] Dr. 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 Plan of Treatment Date Care Activity Detail Author Start: 09-15-2024 End: 09-15-2024 Patient encounter procedure 09/15/2024 8:20 AM EDT Office Visit [facility] [address] [facility] [place] [address] [phone] Nayana Prakash, [employer]DER [employer]ELOPER [address] [place] [facility] Start: 07-30-2024 End: 06-17-2025 MR Brain WO and W contrast IV MR brain w and wo contrast routine Imaging Routine Abnormal CT of the head Abnormal MRI of head Expected: 07/30/2024 (Approximate), Expires: 06/17/2025 [facility] Work Phone: Comment on above: Expected: 07/30/2024 (Approximate), Expires: 06/17/2025 Start: 06-17-2024 End: 06-17-2025 Creatinine [Mass/volume] in Serum or Plasma Creatinine, Serum Lab Routine Abnormal CT of the head Abnormal MRI of head Expected: 06/17/2024 (Approximate), Expires: 06/17/2025 [facility] Comment on above: Expected: 06/17/2024 (Approximate), Expires: 06/17/2025 Start: 06-17-2024 End: 06-17-2025 Urea nitrogen [Mass/volume] in Serum or Plasma BUN Lab Routine Abnormal CT of the head Abnormal MRI of head Expected: 06/17/2024 (Approximate), Expires: 06/17/2025 [facility] Comment on above: Expected: 06/17/2024 (Approximate), Expires: 06/17/2025 Start: 06-15-2024 End: 06-15-2024 [facility] Comment on above: Arrived Start: 05-16-2024 End: 05-16-2024 Patient encounter procedure 05/16/2024 9:00 AM EST [facility] [address] [place] [address] Gerardo Petersen DO [address] [place] [id number] [facility] Start: 04-18-2024 End: 04-18-2025 EMG 2 Extremities EMG 2 Extremities Neurology Routine Balance disorder Numbness and tingling Expected: 04/18/2024 (Approximate), Expires: 04/18/2025 [facility] Comment on above: Expected: 04/18/2024 (Approximate), Expires: 04/18/2025 Start: 04-18-2024 End: 04-18-2025 MR Brain WO and W contrast IV MR brain w and wo contrast routine Imaging Routine Abnormal CT of the head Balance disorder Expected: 04/18/2024, Expires: 04/18/2025 [facility] Work Phone: Comment on above: Expected: 04/18/2024 , Expires: 04/18/2025 Start: 04-18-2024 End: 04-18-2025 NVC 9-10 Nerves NVC 9-10 Nerves Neurology Routine Balance disorder Numbness and tingling Expected: 04/18/2024 (Approximate), Expires: 04/18/2025 [facility] Comment on above: Expected: 04/18/2024 (Approximate), Expires: 04/18/2025 Start: 04-18-2024 End: 04-18-2024 Patient encounter procedure 04/18/2024 1:00 PM EDT Office Visit [facility] [address] [place] [address] Gerardo Petersen DO [address] [place] [address] Arrived [facility] Comment on above: Arrived Start: 1950 Screening for malign ant neoplasm of colon [facility] Immunizations Immunization Date Immunization Notes Care Provider Fa cility 04-03-2022 SARS-CoV-2 (COVID-19 ) [id number] Leo TATE [facility] 12-02-2021 SARS-CoV-2 mRNA (wwhamnovagy-vmyu-ljrty se) vaccine Leo TATE [facility] 03-23-2021 SARS-CoV-2 (COVID-19 ) mRNA BNT-162b2 vax Leo TATE [facility] Comment on above: Result Comment: 2022: [id number] 08-30-2020 SARS-CoV-2 (COVID-19 ) mRNA BNT-162b2 sejal TATE [facility] [place] Comment on above: Result Comment: 2022: [id number] 08-09-2020 SARS-CoV-2 (COVID-19 ) mRNA BNT-162b2 sejal TATE [facility] [place] Comment on above: Result Comment: 2022: [id number] Payers Date Payer Category Payer Private Health Insurance [id number] 2016 Medicare MEDICARE [id number] 2016 Unknown [id number] 1959 Medicare [id number] 1959 Unknown [id number] 1959 Unknown [id number] 1952 Unknown [id number] 2.16.840.1.739289.3.579.2. 593 1952 Unknown [id number] 2.16.840.1.620566.3.579.2. 593 1952 Unknown [id number] 2.16.840.1.529706.3.579.2. 593 1952 Unknown [id number] 2.16.840.1.672672.3.579.2. 593 1952 Unknown [id number] 2.16.840.1.382674.3.579.2. 593 1952 Unknown [id number] 2.16.840.1.491943.3.579.2. 593 1952 Unknown [id number] 2.16.840.1.873907.3.579.2. 593 1952 Unknown [id number] 2.16.840.1.338661.3.579.2. 593 1952 Unknown [id number] 2.16.840.1.431820.3.579.2. 593 1952 Unknown [id number] 2.16.840.1.555837.3.579.2. 593 1952 Unknown [id number] 2.16.840.1.495578.3.579.2. 593 1952 Unknown [id number] 2.16.840.1.276395.3.579.2. 593 1952 Unknown [id number] 2.16.840.1.649927.3.579.2. 593 1952 Unknown [id number] 2.16.840.1.235621.3.579.2. 593 1952 Unknown [id number] 2.16.840.1.454013.3.579.2. 593 1952 Unknown [id number] 2.16.840.1.485707.3.579.2. 593 1952 Unknown [id number] 2.16.840.1.848943.3.579.2. 593 1952 Unknown [id number] 2.16.840.1.068530.3.579.2. 727 1952 Unknown [id number] 2.16.840.1.192240.3.579.2. 727 1952 Unknown [id number] 2.16.840.1.973393.3.579.2. 727 1952 Unknown [id number] 2.16.840.1.049870.3.579.2. 1259 1952 Unknown [id number] 2.16.840.1.052515.3.579.2. 1259 1952 Unknown [id number] 2.16.840.1.703191.3.579.2. 1259 Social History Date Type Detail Facility Start: 03-18-2023 End: 06-15-2024 Tobacco smoking status Ex-smoker (finding) [facility] [place] Tobacco smoking status Never [facility] [place] Start: 04-18-2024 End: 06-15-2024 Sex Assigned At Male [employer] [facility] Tobacco smoking stat [facility] Tobacco smoking consumption unknown [facility] Start: 1950 Sex assigned at Male N [facility] Start: 04-11-2024 Gender identity Identifies as male gender (finding) [facility] End: 09-03-2011 History of tobacco use Current smoker [facility] End: 09-03-2011 History of tobacco use Cigarette Smoker [facility] Start: 04-18-2024 End: 06-15-2024 Tobacco use and exposure Smokeless tobacco non-user [facility] Start: 04-18-2024 End: 06-15-2024 History of Social function [facility] Start: 06-15-2024 Alcoholic beverage intake Ex-drinker (finding) [facility] Functional Status Date Assessment Result Facility 03-18-2023 Functional Status N/A General [facility] Clinical Notes 03-18-2023 to 05-30-2024 Haim Colón, ROSAT - 05/16/2024 9:00 AM Korin Petersen DO - 04/18/2024 1:00 PM EDT Note Date & Type Note Facility 05-30-2024 Note [facility] Cardiology Clinic Note Chief Complaint: Patient here for 3 mo follow up valve disorder, CAD, and hypertension. Had vascular surgery last month with Dr. Castro. He was switched from aspirin to Plavix. He's doing very well. Denies chest pain, SOB, and palpitations. HPI: Martin West is a 74 y.o. male Had an eventful month; was diagnosed with subclavian steal syndrome. Underwent carotid to subclavian bypass. Has been doing well since. Denies recurrent syncope. No lightheadedness or dizziness. No chest pain, no exertional shortness of breath. Blood pressure at home is in the 120s to 130s systolic. Cardiology ROS: Review of Systems All other [...] Disp: , Rfl: Last Recorded Vitals BP 168/70 (BP Location: Right arm, Patient Position: Sitting) Pulse 57 Ht 1.676 m (5' 6 ) Wt 96.2 kg (212 lb) SpO2 95% BMI 34.22 kg/m??? Physical Examination: GENERAL: alert and oriented [...] seen with elevated Doppler flow; peak velocity (more content not included)... [facility] 05-16-2024 History of Present illness Narrative Images from the original note were not included. Reason for Appointment: EMG Patient: Martin West : 1950 EMG Computer: [email or web address] Referring Physician: Dr. Gerardo Petersen EMG: BLE ichthyology teacher: Haim Colón RT(R) Office Location: [place] Reason for EMG: c/o numbness in bilateral feet. Pt states PreDM. Taking Warfarin. Comments: Procedure was explained to the patient who expressed understanding. Patient appeared to have tolerated the test well despite some discomfort due to the nature of the test. documented in this encounter [facility] 04-18-2024 History of Present illness Narrative Images from the original note were not included. Chief Complaint Patient presents with Syncope Subjective Martin West, 74 y.o., male who is being seen [...] is going to be having surgery at [facility] in [place] for a vein that is 100% occluded on the left in his neck. Past Medical History: Diagnosis Date COPD (chronic obstructive pulmonary disease) ([facility]) Diabetes mellitus ([facility]) Past Surgical History: Procedure Laterality Date [...] We will leave the bradycardia to his perfusionist We will try to get more information [...] clinic: 3 weeks documented in this encounter [facility] 03-01-2024 Note [facility] Cardiology Clinic Note Chief Complaint: Patient [...] Conclusion: 1. L (more content not included)... [facility] 02-01-2024 Note car [facility] 02-01-2024 Note [facility] Cardiology Clinic Note Chief Complaint: Patient [...] - MILD I25.10: Atherosclerotic heart disease of [place] coronary artery without angina pectoris 3. Essential hypertension - Established (stable) I10: Essential (primary) hypertensio (more content not included)... [facility] 04-01-2023 Note [id number] Kiana from [place] [facility] med management called stating he is ok to hold coumadin 4 days before procedure and will not need bridged, she will call pt tp inform him [facility] Comment on above: Result Comment: Elec [...] Unasyn preop for SBE prophylaxis. 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 [facility] Comment on above: Result Comment: Elec tronically Signed By: BEBETO RODRIGUES, Leo Monae\Date and Time Signed: 03/18/23 14:47 EDT Evaluation + Plan note No data available for this section General Surgery [employer] Evaluation note Diagnosis Abnormal CT of the head- Primary Nonspecific (abnormal) findings on radiological and other examination of skull and head Postural dizziness with presyncope Cerebral hypoperfusion Balance disorder Numbness and tingling Disturbance of skin sensation documented in this encounter [facility] Diagnosis Balance disorder Numbness and tingling Disturbance of skin sensation documented in this encounter [facility]* Diagnosis Abnormal CT of the head- Primary Nonspecific (abnormal) findings on radiological and other examination of skull and head Postural dizziness with presyncope Balance disorder Numbness and tingling Disturbance of skin sensation Abnormal MRI of head Nonspecific (abnormal) findings on radiological and other examination of skull and head documented in this encounter [facility] Discharge instructions No data available for this section General Surgery [place] Progress note No data available for this section General Surgery [place] Summary Purpose Family History No Family History [...] section and content) DATE CREATED AUTHOR 12/05/2022 [facility] DATE CREATED AUTHOR AUTHOR'S ORGANIZ ATION 04/28/2023 [facility] DATE CREATED AUTHOR AUTHOR'S ORGANIZ ATION 05/31/2024 [facility] DATE CREATED AUTHOR AUTHOR'S ORGANIZ ATION 06/19/2024 [facility] dical Specialists EPIC Patient Care team informatio n (unrecognized section and content) [employer] Relationship Specialty Start Date End Date Petra Wooten MD [address] [place] [id number] PCP - General Family Medicine 04/18/24 Alayna Kim MD [address] [place] [address] Referring Physician Cardiology 04/18/24 [employer] Relationship Specialty Start Date End Date Petra Wooten MD [address] [place] [address] PCP - General Family Medicine 04/18/24 Alayna Kim MD [address] [place] [address] Referring Physician Cardiology 04/18/24 [employer] Relationship Specialty Start Date End Date Petra Wooten MD [address] [place] [address] PCP - General Family Medicine 04/18/24 Alayna Kim MD [address] [place] [address] Referring Physician Cardiology 04/18/24 [employer] Relationship Specialty Start Date End Date Petra Wooten MD [address] [place] [address] PCP - General Family Medicine 04/18/24 Alayna Kim MD [address] [place] [address] Referring Physician Cardiology 04/18/24 [employer] Operator Relationship Specialty Start Date End Date Petra Wooten MD [address] [place] [address] PCP - General Family Medicine 04/18/24 Alayna Kim MD [address] [place] [facility] [place] [address] Referring Physician Cardiology 04/18/24 Gerardo Petersen DO [address] [place] [address] Referring Physician Neurology 06/15/24 [employer] Operator Relationship Specialty Start Date End Date Petra Wooten MD [address] [facility] [address] PCP - General Family Medicine 04/18/24 Alayna Kim MD [address] [place] [facility] [place] [address] Referring Physician Cardiology 04/18/24 Gerardo Petersen DO [address] [place] [address] Referring Physician Neurology 06/15/24 Reason for Visit (unrecogniz ed section and [...] BE BASED ON THE PRIMARY CLINICAL RECORDS. [employer] provides no warranty or guarantee of the accuracy or completeness of information in this document.
--- NOTE | 2024-08-16 08:45 | MR_ITS ---
The [address] [address] Patient Name: JOSE WEST MRN: [id number] date: 1950 Sex: M Assigned Patient Location: LAB Current Patient Location: LAB Accession/Order Number: [id number] Exam Date: 08/17/2024 13:15 Report Date: 08/17/2024 13:39 At the request of: NAYANA LAM NP Procedure: MR head/brain wo/w con MR head/brain wo/w con 08/16/2024 9:46 AM SIGN AND SYMPTOMS: ^Access stability of cyst PROTOCOL: Multiplanar multisequence MR images of the brain with and without contrast Contrast: 19 mL of intravenous Dotarem COMPARISON: 04/27/2024 FINDINGS: Extra axial spaces: There is mild age-related cortical atrophy. There is a prominent extra-axial space along the anterior margin of the left middle cranial fossa/anterior pole of the left temporal lobe consistent with an arachnoid cyst. This is unchanged compared to the prior exam. Hemorrhage: Punctate foci of susceptibility are redemonstrated in the periventricular and subcortical white matter. These are nonspecific but may represents small cavernous malformations or remote microhemorrhages. Ventricular system: Within normal limits. Basal cisterns: Within normal limits and not effaced. Cerebral parenchyma: There is a similar multiloculated cystic structure in the left subinsular region extending into the left globus pallidus, putamen, and coronary. This is unchanged compared to the prior exam and measures 6.4 x 3.4 x 4.7 cm in greatest axial dimension. There are areas of adjacent gliosis and encephalomalacia involving of the thalamus on the left in the left frontal periventricular white matter. Additional areas of periventricular white matter T2 and FLAIR hyperintense signal are redemonstrated. No accompanying abnormal postcontrast enhancement. Midline shift: None.. Cerebellum: Within normal limits. Brainstem: Within normal limits. OTHER: Calvarium: Normal marrow signal. Vascular system: Satisfactory flow voids within the anterior and posterior circulation. Visualized Paranasal sinuses: Mucosal thickening is noted in the maxillary sinuses and ethmoid air cells. Visualized Orbits: Within normal limits. Visualized upper cervical spine: Within normal limits. Sella and skull base: Within normal limits. MR/MR head/brain wo/w con IMPRESSION: There is a similar multiloculated cystic structure in the left subinsular region extending into the left globus pallidus, putamen, and coronary. This is unchanged compared to the prior exam and measures 6.4 x 3.4 x 4.7 cm in greatest axial dimension. Given the complex nature as well as surrounding gliosis and encephalomalacia this most likely represents sequelae of a remote area of ischemia as opposed to a benign neuroglial cyst. Given the lack of accompanying enhancement, malignancy is felt to be unlikely. Additional chronic findings are redemonstrated as above. No acute intracranial pathology. Impression dictated by: Bryan Melo M.D.08/17/2024 1:39 PM Dictation Location: [place] [address] Electronically authenticated by: [id number] Y Date: 08/17/2024 13:39
[2024-08-16 09:09] LABS: Estimated GFR (African America 49 (>=60 mL/min/1.73m^2); Estimated GFR (Non-African Ame 40 (>=60 mL/min/1.73m^2)
== END 2024-08-16 08:28 | disposition home or self-care (01) ==
LOC: LAB 08:27
PROVIDERS: PCP Family Medicine; Visit Provider Nurse Practitioner Family
DX: R93.0 Abnormal findings on diagnostic imaging of skull and head, not elsewhere classified (principal)
CPT/HCPCS: 36415; 70553; 82565; 84520; A9575

== ENCOUNTER 2024-08-28 07:16 | Outpatient (RCR) | payer MEDICARE, SELFPAY | END 2024-09-23 13:46 | disposition home or self-care (01) | LOC: MM 07:16 | PROVIDERS: PCP Family Medicine; Visit Provider Internal Medicine | DX: Z51.81 Encounter for therapeutic drug level monitoring (principal); Z79.01 Long term (current) use of anticoagulants; I48.91 Unspecified atrial fibrillation | CPT/HCPCS: 85610; G0463 ==

== ENCOUNTER 2024-09-27 05:19 | Outpatient (RCR) | payer MEDICARE, SELFPAY | END 2024-10-26 15:25 | disposition home or self-care (01) | LOC: MM 05:19 | PROVIDERS: PCP Family Medicine; Visit Provider Internal Medicine | DX: Z51.81 Encounter for therapeutic drug level monitoring (principal); Z79.01 Long term (current) use of anticoagulants; I48.91 Unspecified atrial fibrillation | CPT/HCPCS: 85610; G0463 ==

== ENCOUNTER 2024-10-27 04:48 | Outpatient (RCR) | payer MEDICARE, SELFPAY | END 2024-11-25 15:15 | disposition home or self-care (01) | LOC: MM 04:48 | PROVIDERS: PCP Family Medicine; Visit Provider Internal Medicine | DX: Z51.81 Encounter for therapeutic drug level monitoring (principal); Z79.01 Long term (current) use of anticoagulants; I48.91 Unspecified atrial fibrillation | CPT/HCPCS: 85610; G0463 ==

== ENCOUNTER 2024-11-27 08:03 | Outpatient (RCR) | payer MEDICARE, SELFPAY | END 2024-12-22 14:54 | disposition home or self-care (01) | LOC: MM 08:03 | PROVIDERS: PCP Family Medicine; Visit Provider Internal Medicine | DX: Z51.81 Encounter for therapeutic drug level monitoring (principal); Z79.01 Long term (current) use of anticoagulants; I48.91 Unspecified atrial fibrillation | CPT/HCPCS: 85610; G0463 ==

== ENCOUNTER 2024-12-27 02:32 | Outpatient (RCR) | payer MEDICARE, SELFPAY | END 2025-01-26 16:55 | disposition home or self-care (01) | LOC: MM 02:32 | PROVIDERS: PCP Family Medicine; Visit Provider Internal Medicine | DX: Z51.81 Encounter for therapeutic drug level monitoring (principal); Z79.01 Long term (current) use of anticoagulants; I48.91 Unspecified atrial fibrillation | CPT/HCPCS: 85610; G0463 ==

== ENCOUNTER 2025-01-16 07:54 | Outpatient (OUT) | payer MEDICARE, SELFPAY ==
--- OUTSIDE RECORDS SUMMARY | 2025-01-16 07:59 | XMS_ITS | CCD ---
Author Organization [facility] Care Team Providers Care Mysql Database Developer Name Role Phone SUGAR ., DR LAMBERT Primary Care Unavailable FAWWAD, DIEZ H Attending Unavailable FAWWAD, DIEZ H Admitting Unavailable HOY ., DR LAMBERT Primary Care Unavailable FAWWAD, DIEZ H Attending Unavailable FAWWAD, DIEZ H Admitting Unavailable FAWWAD, DIEZ H Admitting Unavailable HOY ., DR LAMBERT Primary Care Unavailable FAWWAD, IDEZ H Attending Unavailable HOY ., DR LAMBERT [...] JACKIE, DR AMBROSIO Boggs Consulting Unavailabl e REINECK, DR AMBROSIO Boggs Attending Unavailabl e REINJOSE A, DR AMBROSIO Boggs Admitting Unavailabl e BAILEY [...] Unavailable HOY ., DR LAMBERT Attending Unavailable TOVEY, DR LISBET Santamaria Consulting Unavailable GAGE CARTER Consulting Unavailable HOY ., DR LAMBERT Primary Care Unavailable HOY ., DR LAMBERT Admitting Unavailable HOY ., DR LAMBERT Consulting Unavailable HOY ., DR LAMBERT Attending Unavailable HOY ., DR LAMBERT Primary Care Unavailable JULIO, DR FLEMING Consulting Unavailable ELTAMASON, DR FLEMING Attending Unavailable JULIO, DR FLEMING Admitting Unavailable Petra Wooten Primary Care Physician Leo TATE Attending Unavailable Leo TATE Attending Unavailable Unavailable Primary Care Provider UnavailPetra Santa MD Primary Care Provider [phone] Alayna Kim MD Unavailable ALAYNA KIM Attending Unavailable ALAYNA KIM Attending Unavailable ALAYNA KIM Attending Unavailable Gerardo Petersen DO Unavailable Alayna Kim MD Unavailable Nayana Prakash NP Unavailable NAYANA PRAKASH Attending Unavailable GERARDO PETERSEN Attending Unavailable GERARDO PETERSEN Attending Unavailable NAYANA PRAKASH Attending Unavailable Allergies Allergy Classification Reported Allergen(s) Allergy Type Date of Onset Reaction(s) Facility (1 source) No Known Medication Allergies; Translations: [No Known Medication Allergies] Propensity to adverse reactions (disorder) [facility] Repository Medications Current Medications Medication Drug Class(es) Dates Sig (Normalized) Sig (Original) aspirin 81 mg delayed release oral tablet (1 source) Platelet Aggregation Inhibitor, Nonsteroidal Anti-inflammatory Drug Start: 03-13-2023 take 1 tablet by mouth once daily aspirin 81 mg Oral EC Tab 81 mg = 1 tab(s), Oral, Daily, Refills(s) 0 Start Date: 03/13/23 Status: Ordered carvedilol 25 mg oral tablet (14 sources) alpha-Adrenergic Benja, beta-Adrenergic Benja Start: 03-13-2023 [...] Status: Ordered chlorthalidone 25 mg oral tablet (14 sources) Thiazide-like Diuretic Start: 02-01-2024 End: 01-31-2025 take 1 tablet by mouth every other day chlorthalidone (Hygroton) 25 MG tablet Take 25 mg by mouth every other day 02/01/2024 01/31/2025 Active Start: 03-13-2023 take 1 tablet by durga once daily chlorthalidone 25 mg Tab 25 mg = 1 tab(s), Oral, Daily, Refills(s) 0 Start Date: 03/13/23 Status: Ordered citalopram 20 mg oral tablet (14 sources) Serotonin Reuptake Inhibitor Start: 03-18-2023 take 1 tablet by mouth once daily CeleXA 20 mg Tab 20 mg = 1 tab(s), Oral, Daily, Refills(s) 0 Start Date: 03/18/23 Status: Ordered cloNIDine hydrochloride 0.1 mg oral tablet (14 sources) Central alpha-2 Adrenergic Agonist Start: 03-13-2023 take 1 tablet by mouth three times daily cloNIDine 0.1 mg tab 0.1 mg = 1 tab(s), Oral, TID, Refills(s) 0 Start Date: 03/13/23 Status: Ordered clopidogrel 75 mg oral tablet (7 sources) P2Y12 Platelet Inhibitor Start: 05-08-2024 take 1 tablet by mouth in the morning clopidogrel (Plavix) 75 MG tablet TAKE 1 TABLET (75 MG TOTAL) BY MOUTH IN THE MORNING 05/08/2024 Active doxazosin 8 mg oral tablet (14 sources) alpha-Adrenergic Benja Start: 03-13-2023 take 1 tablet by mouth once daily doxazosin 8 mg oral tablet 8 mg = 1 tab(s), Oral, Daily, Refills(s) 0 Start Date: 03/13/23 Status: Ordered gemfibrozil 600 mg oral tablet (14 sources) Peroxisome Proliferator Receptor alpha Agonist Start: 03-13-2023 take 1 tablet by mouth twice daily Lopid 600 mg Tab 600 mg = 1 tab(s), Oral, BID, Refills(s) 0 Start Date: 03/13/23 Status: Ordered glimepiride 1 mg oral tablet (13 sources) Sulfonylurea Start: 04-12-2024 take 1 tablet by mouth before mealtime glimepiride (Amaryl) 1 MG tablet Take 1 mg by mouth in the morning. Take before meals. 04/12/2024 Active lisinopril 40 mg oral tablet (14 sources) Angiotensin Converting Enzyme Inhibitor Start: 03-13-2023 take 1 tablet by mouth once daily lisinopril 40 mg Tab 40 mg = 1 tab(s), Oral, Daily, Refills(s) 0 Start Date: 03/13/23 Status: Ordered pantoprazole 40 mg delayed release oral tablet (14 sources) Proton Pump Inhibitor Start: 03-13-2023 take 1 tablet by mouth once daily Pantoprazole [address] Tab 40 mg = 1 tab(s), Oral, Daily, Refills(s) 0 Start Date: 03/13/23 Status: Ordered rosuvastatin calcium 40 mg oral tablet (13 sources) HMG-CoA Reductase Inhibitor Start: 02-01-2024 End: [...] Ordered warfarin sodium 4 mg oral tablet (14 sources) Vitamin K Antagonist Start: 03-13-2023 warfarin [...] Chronic Conditions associated with dizziness or vertigo (8 sources) Postural dizziness; Translations: [Dizziness and giddiness] [...] for therapeutic drug level monitoring; Translations: [[facility] DRUG LEVL MONITORING] Onset: 01-01-2022 Episodic Other aftercare (1 source) long term care pharmacist (current) use of anticoagulants; Translations: [IRON CUTTER CURRNT USE ANTICOAGULANTS] Onset: 11-26-2022 Episodic Other aftercare (2 sources) Long-term current use of anticoagulant; Translations: [long term care pharmacist (current) use of anticoagulants] Onset: 03-18-2023 Episodic [...] conditions (not mental disorders or infectious disease) (18 sources) Encounter for screening for malignant neoplasm of prostate; Translations: [Encounter for screening for malignant neoplasm of rectum] Onset: 11-17-2022 04-18-2024 Episodic Residual codes; unclassified (1 source) Sleep apnea 03-13-2023 Chronic Residual codes; unclassified (14 sources) Obstructive sleep apnea syndrome; Translations: [Obstructive sleep apnea (adult) (pediatric)] Onset: 04-06-2024 04-06-2024 Chronic Residual codes; unclassified (14 sources) Hypersomnia; Translations: [Hypersomnia, unspecified] Onset: 04-06-2024 [...] 06-08-2022 Episodic Other aftercare (1 source) Other [place] [facility] (current) drug therapy; Translations: [OTH IRON CUTTER CURRENT DRUG THERAPY] Onset: 06-11-2022 Episodic Other aftercare (1 source) long term care pharmacist (current) use of aspirin; Translations: [IRON CUTTER CURRENT USE OF ASPIRIN] Onset: 01-01-2022 Episodic [...] Test Name Value Interpretation Reference Range Facility MRI HEAD/BRAIN WO/W CONTRon 08-17-2024 [place] [address] Magnetic Resonance Report Signed Patient: MARTIN WEST MR#: [id number] : 1950 Acct:[id number] Age/Sex: 74 / M ADM Date: 08/16/24 Loc: LAB Attending Dr: Nayana Prakash NP Ordering Physician: Nayana Prakash NP Date of Service: 08/16/24 Procedure(s): MR head/brain wo/w con Accession Number(s): [id number] cc: Nayana Prakash NP; Petra Wooten M.D. [place] [address] Patient Name: MARTIN WEST MRN: [id number] date: 1950 Sex: M Assigned Patient Location: LAB Current Patient Location: LAB Accession/Order Number: [id number] Exam Date: 08/17/2024 13:15 Report Date: 08/17/2024 13:39 At the request of: NAYANA PRAKASH NP Procedure: MR head/brain wo/w con MR head/brain wo/w con 08/16/2024 9:46 AM SIGN AND SYMPTOMS: Access stability of cyst PROTOCOL: Multiplanar multisequence MR images of the brain with and without contrast Contrast: 19 mL of intravenous Dotarem COMPARISON: 04/27/2024 FINDINGS: Extra axial spaces: There is mild age-related cortical atrophy. There is a prominent extra-axial space along the anterior margin of the left middle cranial fossa/anterior pole of the left temporal lobe consistent with an arachnoid cyst. This is unchanged compared to the prior exam. Hemorrhage: Punctate foci of susceptibility are redemonstrated in the periventricular and subcortical white matter. These are nonspecific but may represents small cavernous malformations or remote microhemorrhages. Ventricular system: Within normal limits. Basal cisterns: Within normal limits and not effaced. Cerebral parenchyma: There is a similar multiloculated cystic structure in the left subinsular region extending into the left globus pallidus, putamen, and coronary. This is unchanged compared to the prior exam and measures 6.4 x 3.4 x 4.7 cm in greatest axial dimension. There are areas of adjacent gliosis and encephalomalacia involving of the thalamus on the left in the left frontal periventricular white matter. Additional areas of periventricular white matter T2 and FLAIR hyperintense signal are redemonstrated. No accompanying abnormal postcontrast enhancement. Midline shift: None.. Cerebellum: Within normal limits. Brainstem: Within normal limits. OTHER: Calvarium: Normal marrow signal. Vascular system: Satisfactory flow voids within the anterior and posterior circulation. Visualized Paranasal sinuses: Mucosal thickening is noted in the maxillary sinuses and ethmoid air cells. Visualized Orbits: Within normal limits. Visualized upper cervical spine: Within normal limits. Sella and skull base: Within normal limits. MR/MR head/brain wo/w con IMPRESSION: There is a similar multiloculated cystic structure in the left subinsular region extending into the left globus pallidus, putamen, and coronary. This is unchanged compared to the prior exam and measures 6.4 x 3.4 x 4.7 cm in greatest axial dimension. Given the complex nature as well as surrounding gliosis and encephalomalacia this most likely represents sequelae of a remote area of ischemia as opposed to a benign neuroglial cyst. Given the lack of accompanying enhancement, malignancy is felt to be unlikely. Additional chronic findings are redemonstrated as above. No acute intracranial pathology. Impression dictated by: Gabriella Melo M.D.08/17/2024 1:39 PM Dictation Location: [place] [address] Electronically authenticated by: [id number] Y Date: 08/17/2024 13:39 Dictated By: Gabriella Melo M.D. Signed By: 08/17/24 1341 DD/ 1339 TD/TT: [facility] [employer]: [facility] Radiology, Radiologist, - 08/17/2024 [place] [address] Magnetic Resonance Report Signed Patient: MARTIN WEST MR#: [id number] : 1950 Acct:[id number] Age/Sex: 74 / M ADM Date: 08/16/24 Loc: LAB Attending Dr: Nayana Prakash NP Ordering Physician: Nayana Prakash NP Date of Service: 08/16/24 Procedure(s): MR head/brain wo/w con Accession Number(s): [id number] cc: Nayana Prakash NP; Petra Wooten M.D. [place] [id number] Patient Name: MARTIN WEST MRN: [id number] date: 1950 Sex: M Assigned Patient Location: LAB Current Patient Location: LAB Accession/Order Number: [id number] Exam Date: 08/17/2024 13:15 Report Date: 08/17/2024 13:39 At the request of: NAYANA PRAKASH NP Procedure: MR head/brain wo/w con MR head/brain wo/w con 08/16/2024 9:46 AM SIGN AND SYMPTOMS: Access stability of cyst PROTOCOL: Multiplanar multisequence MR images of the brain with and without contrast Contrast: 19 mL of intravenous Dotarem COMPARISON: 04/27/2024 FINDINGS: Extra axial spaces: There is mild age-related cortical atrophy. There is a prominent extra-axial space along the anterior margin of the left middle cranial fossa/anterior pole of the left temporal lobe consistent with an arachnoid cyst. This is unchanged compared to the prior exam. Hemorrhage: Punctate foci of susceptibility are redemonstrated in the periventricular and subcortical white matter. These are nonspecific but may represents small cavernous malformations or remote microhemorrhages. Ventricular system: Within normal limits. Basal cisterns: Within normal limits and not effaced. Cerebral parenchyma: There is a similar multiloculated cystic structure in the left subinsular region extending into the left globus pallidus, putamen, and coronary. This is unchanged compared to the prior exam and measures 6.4 x 3.4 x 4.7 cm in greatest axial dimension. There are areas of adjacent gliosis and encephalomalacia involving of the thalamus on the left in the left frontal periventricular white matter. Additional areas of periventricular white matter T2 and FLAIR hyperintense signal are redemonstrated. No accompanying abnormal postcontrast enhancement. Midline shift: None.. Cerebellum: Within normal limits. Brainstem: Within normal limits. OTHER: Calvarium: Normal marrow signal. Vascular system: Satisfactory flow voids within the anterior and posterior circulation. Visualized Paranasal sinuses: Mucosal thickening is noted in the maxillary sinuses and ethmoid air cells. Visualized Orbits: Within normal limits. Visualized upper cervical spine: Within normal limits. Sella and skull base: Within normal limits. MR/MR head/brain wo/w con IMPRESSION: There is a similar multiloculated cystic structure in the left subinsular region extending into the left globus pallidus, putamen, and coronary. This is unchanged compared to the prior exam and measures 6.4 x 3.4 x 4.7 cm in greatest axial dimension. Given the complex nature as well as surrounding gliosis and encephalomalacia this most likely represents sequelae of a remote area of ischemia as opposed to a benign neuroglial cyst. Given the lack of accompanying enhancement, malignancy is felt to be unlikely. Additional chronic findings are redemonstrated as above. No acute intracranial pathology. Impression dictated by: Gabriella Melo M.D.08/17/2024 1:39 PM Dictation Location: [place] [address] Electronically authenticated by: [id number] Y Date: 08/17/2024 13:39 Dictated By: Gabriella Melo M.D. Signed By: 08/17/24 1342 DD/ 1339 TD/TT: [facility] [employer]: [facility] Radiology Study observation (narrative) [facility] MRI HEAD/BRAIN WO/W CONTROrd ered By: Radiologist Radiology on 08-17-2024 [facility] Work Phone: ALL BUNon 08-16-2024 Urea nitrogen [Mass/Vol] 39 mg/dL High 7.0 - 18.0 mg/dL [facility] No Panel Informationon 08-16 Interpretation and review of laboratory results Abnormal [facility] CREATININEon 08-16-2024 Creatinine [Mass/Vol] 1.68 mg/dL High 0.70 - 1.30 mg/dL [facility] GFR/1.73 sq M.predicted CKD-EPI (S/P/Bld) [Vol rate/Area] 49 Low >=60 mL/min/1.73m 2 [facility] EGFR-NON AF [facility] 40 Low >=60 mL/min/1.73m 2 [facility] Office Visiton 05-30-2024 Follow-up visit [id number] Martin West 1950 M Date Provider Department Center 05/30/2024 ALAYNA RANDALL [facility] Hos Family History Problem Relation Age of Onset No Known Problems Mother No Known Problems Father Family Status - Relation Status Age at Mother Father Level of Service:20877 [place] OFFICE/OUTPATIENT ESTABLISHED LOW MDM 20 MIN Normal [facility] EMG 2 Extremitieson 05-16-20 EMG/NCS BLE 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 [facility] NVC 9-10 Nerveson 05-16-2024 EMG/NCS BLE 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 [facility] ALL BUNon 04-27-2024 Urea nitrogen [Mass/Vol] 26 mg/dL High 7.0 - 18.0 mg/dL [facility] No Panel Informationon 04-27 Interpretation and review of laboratory results Abnormal [facility] CREATININEon 04-27-2024 Creatinine [Mass/Vol] 1.55 mg/dL High 0.70 - 1.30 mg/dL [facility] GFR/1.73 sq M.predicted CKD-EPI (S/P/Bld) [Vol rate/Area] 54 Low >=60 mL/min/1.73m 2 [facility] EGFR-NON AF [facility] 44 Low >=60 mL/min/1.73m 2 [facility] 36on 03-08-2024 36 Regarding CTA head and [...] neurology so I will send referral to [facility] neurology in [place]. Patient verbalized understanding and agrees to referral. Normal [facility] Office Visiton 03-01-2024 Follow-up visit [id number] Rudi Westel Hawa 1950 M [place] Provider Department [place] 03/01/2024 ALAYNA RANDALL [facility] Family History Problem Relation Age of Onset No Known Problems Mother No Known Problems Father Family Status - Relation Status Age at Mother Father Level of Service:40910 [place] OFFICE/OUTPATIENT ESTABLISHED MOD MDM 30 MIN [facility] 36on 02-24-2024 36 Spoke with patient and informed him of results. He is scheduled for follow up with Dr. Kim on 03/01 and would like to discuss things with him then. [facility] 36on 02-22-2024 36 Regarding stress bro t from 02/17/2024: MD Sophy Breaux MA Please reassure the patient that his stress test was nonischemic Thank you Dr. Kim, were you able to also review his carotid US and echo from last week? [facility] 36on 02-17-2024 36 I just scanned in patient's lipid and liver profiles that were drawn this morning. I believe you wanted them done in Apr. Can you review them and I'll also let the patient know they'll need to be repeated in 3 months if you still want them. Thanks! [facility] Follow-Upon 02-01-2024 Follow-Up [id number] Martin West 1950 M Date Provider Department Center 02/01/2024 Sandra-ALAYNA KIM CARD [facility] Family History Problem Relation Age of Onset No Known Problems Mother No Known Problems Father Family Status - Relation Status Age at Mother Father Level of Service:51863 [place] OFFICE/OUTPATIENT ESTABLISHED MOD MDM 30 MIN [facility] Outside Colonoscopyon 2022 Outside Colonoscopy [id number]#1 .00TIFF [facility] Reminderson 04-09-2023 Reminders - From: Karlene Stewart LPN To: GSN - Clinical; Sent: 04/09/2023 10:49:10 EDT Show up: 03/09/2033 07:00:00 EDT Subject: colonoscopy recall Due Date/Time: 04/08/2033 07:00:00 EDT Reminder/Recall Patient due for screening colonoscopy 04/08/2033. [facility] Consent for Procedure/Surger yon 03-19-2023 Consent for Procedure/Surgery [id number]# 1.00CD:127 Normal Karl [facility] Facesheeton 03-19-2023 Facesheet [id number]# 1.00CD:127 Normal Karl [facility] Ambulatory Visit Summaryon 0 03-18-2023 [...] treatment for. Nicotine dependence Normal [facility] Physician Referralon 023 Physician Referral [id number]#1. 00CD:127 Normal [facility] INSULINon 11-15-2022 Insulin 20.3 uIU/mL Normal 2.6-24.9 [facility] Comment on above: Performed By: #### I NSULIN #### [facility] [address] [place] [address] [address] Kamaljit Browning CBC AUTO DIFFon 11-14-2022 BASO # 0.0 103/ul Normal 0.0-0.1 [facility] Comment on above: Performed By: #### C MP, BNP #### [facility] [address] [place] [address] [address] Kamaljit Browning Basophils/100 WBC (Bld) 0.8 % Normal 0.2-2.0 [facility] Comment on above: Performed By: #### C MP, BNP #### [facility] [address] [place] [address] Dr. Kamaljit Browning EO # 0.1 103/ul Normal 0.0-0.7 [facility] Comment on above: Performed By: #### C MP, BNP #### [facility] [address] [place] [address] Dr. Kamaljit Browning Eosinophils/100 WBC (Bld) 1.7 % Normal 0.9-7.0 [facility] Comment on above: Performed By: #### C MP, BNP #### [facility] [address] [place] [address] Dr. Kamaljit Browning Erythrocyte distribution width (RBC) [Ratio] 12.7 % Normal 11.0-15.0 [facility] Comment on above: Performed By: #### C MP, BNP #### [facility] [address] [place] [address] Dr. Kamaljit Browning Hematocrit (Bld) [Volume fraction] 38.4 % Critically low 42.0-54.0 [facility] Comment on above: Performed By: #### C MP, BNP #### [facility] [address] [place] [address] Dr. Kamaljit Browning Hemoglobin (Bld) [Mass/Vol] 12.8 g/dL Critically low 14.0-18.0 [facility] Comment on above: Performed By: #### C MP, BNP #### [facility] [address] [place] [address] Dr. Kamaljit Browning IG # 0.02 10e3/ul Normal 0.00-0.03 [facility] Comment on above: Performed By: #### C MP, BNP #### [facility] [address] [place] [address] Dr. Kamaljit Browning IG % 0.4 % Normal 0.0-0.5 [facility] Comment on above: Performed By: #### C MP, BNP #### [facility] [address] [place] [address] Dr. Kamaljit Browning LYMPH # 0.8 103/ul Critically low 1.2-3.8 [facility] Comment on above: Performed By: #### C MP, BNP #### [facility] [address] [place] [address] Dr. Kamaljit Browning Lymphocytes/100 WBC (Bld) 15.2 % Critically low 20.5-60.0 [facility] Comment on above: Performed By: #### C MP, BNP #### [facility] [address] [place] [address] Dr. Kamaljit Browning MANUAL DIFF REQ NO Normal [facility] Comment on above: Performed By: #### C MP, BNP #### [facility] [address] [place] [address] Dr. Kamaljit Browning MCH (RBC) [Entitic mass] 30.6 pg Normal 25.9-34.0 [facility] Comment on above: Performed By: #### C MP, BNP #### [facility] [address] [place] [address] Dr. Kamaljit Browning MCHC (RBC) [Mass/Vol] 33.3 g/dL Normal 29.9-35.2 [facility] Comment on above: Performed By: #### C MP, BNP #### [facility] [address] [place] [address] Dr. Kamaljit Browning MCV (RBC) [Entitic vol] 91.9 fL Normal 80.0-94.0 [facility] Comment on above: Performed By: #### C MP, BNP #### [facility] [address] [place] [address] Dr. Kamaljit Browning MONO # 0.5 103/ul Normal 0.3-0.8 [facility] Comment on above: Performed By: #### C MP, BNP #### [facility] [address] [place] [address] Dr. Kamaljit Browning Monocytes/100 WBC (Bld) 8.9 % Normal 1.7-12.0 [facility] Comment on above: Performed By: #### C MP, BNP #### [facility] [address] [place] [address] Dr. Kamaljit Browning NEUT # 3.8 103/ul Normal 1.4-6.5 [facility] Comment on above: Performed By: #### C MP, BNP #### [facility] [address] [place] [address] Dr. Kamaljit Browning Neutrophils/100 WBC (Bld) 73.0 % Normal 43.0-75.0 [facility] Comment on above: Performed By: #### C MP, BNP #### [facility] [address] [place] [address] Dr. Kamaljit Browning Platelet mean volume (Bld) [Entitic vol] 12.5 fL Normal 9.5-13.5 [facility] Comment on above: Performed By: #### C MP, BNP #### [facility] [address] [place] [address] Dr. Kamaljit Browning PLT 126 103/ul Critically low 150-450 [facility] Comment on above: Performed By: #### C MP, BNP #### [facility] [address] [place] [address] Dr. Kamaljit Browning RBC 4.18 106/ul Critically low 4.70-6.10 [facility] Comment on above: Performed By: #### C MP, BNP #### [facility] [address] [place] [address] Dr. Kamaljit Browning WBC 5.2 103/ul Normal 4.0-11.0 [facility] Comment on above: Performed By: #### C MP, BNP #### [facility] [address] [place] [address] Dr. Kamaljit Browning FREE THYROXINE INDEX T7on FTI 2.31 Normal 1.30-4.50 [facility] Comment on above: Performed By: #### C BC #### [facility] [address] [place] [address] Dr. Kamaljit Browning T3U 34.0 % Normal 33.0-40.0 [facility] Comment on above: Performed By: #### C BC #### [facility] [address] [place] [address] [address] Kamaljit Browning T4 [Mass/Vol] 6.80 ug/dL Normal 4.50-12.10 [facility] Comment on above: Performed By: #### C BC #### [facility] [address] [place] [address] Dr. Kamaljit Browning GLYCOHEMOGLOBIN A1Con 2022 ADA RECOMMENDATION SEE BELOW Normal [facility] Comment on above: Result Comment: ADA RECOMMENDED LIMIT 4.0 - 6.0 ADA THERAPEUTIC TARGET < 7.0 ACTION SUGGESTED > 7.0 Performed By: #### A 1C #### [facility] [address] [place] [address] Dr. Kamaljit Browning Glucose [Mass/Vol] 154 mg/dL Normal [facility] Comment on above: Performed By: #### A 1C #### [facility] [address] [place] [address] Dr. Kamaljit Browning HbA1c (Bld) [Mass fraction] 7.0 % Critically high 4.5-6.2 [facility] Comment on above: Performed By: #### A 1C #### [facility] [address] [place] [address] Dr. Kamaljit Browning LIPID PROFILEon 11-14-2022 CHOL-HDL RATIO NORM SEE BELOW Normal [facility] Comment on above: Result Comment: 3.3 - 4.4 LOW RISK 4.4 - 7.1 AVERAGE RISK 7.1 - 11.0 MODERATE RISK >11.0 HIGH RISK Performed By: #### A 1C #### [facility] [address] [place] [address] Dr. Kamlajit Browning Cholesterol [Mass/Vol] 148 mg/dL Normal <=200 [facility] Comment on above: Performed By: #### A 1C #### [facility] [address] [place] [address] Dr. Kamaljit Browning Cholesterol in HDL [Mass/Vol] 41 mg/dL Normal 40-60 [facility] Comment on above: Performed By: #### A 1C #### [facility] [address] [place] [address] Dr. Kamaljit Browning Cholesterol in LDL [Mass/Vol] 81.6 mg/dL Normal [facility] Comment on above: Performed By: #### A 1C #### [facility] [address] [address] [address] Kamaljit Browning Cholesterol.total/Ch olesterol in HDL [Mass ratio] 3.6 {ratio} Normal [facility] Comment on above: Performed By: #### A 1C #### [facility] [address] [address] [address] Kamaljit Browning HDL NORMAL > or = 60 mg/dl - LO W CARDIOVASCULAR RISK <40 mg/dl - HIGH CARDIOVASCULAR RISK Normal [facility] Comment on above: Performed By: #### A 1C #### [facility] [address] [address] [address] Kamaljit Browning LDL CALC NORMAL SEE BELOW Normal [facility] Comment on above: Result Comment: <100 mg/dl OPTIMAL 100 - 129 mg/dl NEAR OR ABOVE OPTIMAL 130 - 159 mg/dl BORDERLINE HIGH 160 - 189 mg/dl HIGH >190 mg/dl VERY HIGH Performed By: #### A 1C #### [facility] [address] [address] [address] Kamaljit Browning Triglyceride [Mass/Vol] 127 mg/dL Normal <=150 [facility] Comment on above: Performed By: #### A 1C #### [facility] [address] [place] [address] Dr. Kamaljit Browning VLDL CALC 25.4 mg/dL Normal [facility] Comment on above: Performed By: #### A 1C #### [facility] [address] [address] [address] Kamaljit Browning PROF 14(COMP METB)on 023 Albumin [Mass/Vol] 4.2 g/dL Normal 3.4-5.0 [facility] Comment on above: Performed By: #### A 1C #### [facility] [address] [address] [address] Kamaljit Browning Albumin/Globulin [Mass ratio] 1.3 {ratio} Normal [facility] Comment on above: Performed By: #### A 1C #### [facility] [address] [place] [address] Dr. Kamaljit Browning ALP [Catalytic activity/Vol] 79 U/L Normal 46-116 [facility] Comment on above: Performed By: #### A 1C #### [facility] [address] [place] [address] Dr. Kamaljit Browning ALT [Catalytic activity/Vol] 27 U/L Normal 16-63 [facility] Comment on above: Performed By: #### A 1C #### [facility] [address] [place] [address] Dr. Kamaljit Browning Anion gap [Moles/Vol] 15.0 mmol/L Normal [facility] Comment on above: Performed By: #### A 1C #### [facility] [address] [place] [address] Dr. Kamaljit Browning AST [Catalytic activity/Vol] 23 U/L Normal 15-37 [facility] Comment on above: Performed By: #### A 1C #### [facility] [address] [place] [address] Dr. Kamaljit Browning Bilirubin [Mass/Vol] 0.3 mg/dL Normal 0.2-1.0 [facility] Comment on above: Performed By: #### A 1C #### [facility] [address] [place] [address] Dr. Kamaljit Browning Calcium [Mass/Vol] 9.0 mg/dL Normal 8.5-10.1 [facility] Comment on above: Performed By: #### A 1C #### [facility] [address] [place] [address] Dr. Kamaljit Browning Chloride [Moles/Vol] 105 mmol/L Normal 98-107 [facility] Comment on above: Performed By: #### A 1C #### [facility] [address] [place] [address] Dr. Kamaljit Browning CO2 [Moles/Vol] 24.7 mmol/L Normal 21.0-32.0 [facility] Comment on above: Performed By: #### A 1C #### [facility] [address] [place] [address] Dr. Kamaljit Browning Creatinine [Mass/Vol] 1.55 mg/dL Critically high 0.70-1.30 [facility] Comment on above: Performed By: #### A 1C #### [facility] [address] [address] [address] Kamaljit Browning EGFR-AF [facility] 54 mL/min/1.73m2 Critically low >=60 [facility] Comment on above: Performed By: #### A 1C #### [facility] [address] [address] [address] Kamaljit Browning EGFR-NON AF [facility] 45 mL/min/1.73m2 Critically low >=60 [facility] Comment on above: Performed By: #### A 1C #### [facility] [address] [place] [address] Dr. Kamaljit Browning Globulin (S) [Mass/Vol] 3.3 g/dL Normal [facility] Comment on above: Performed By: #### A 1C #### [facility] [address] [address] [address] Kamaljit Browning Glucose [Mass/Vol] 129 mg/dL Critically high 74-106 [facility] Comment on above: Performed By: #### A 1C #### [facility] [address] [place] [address] Dr. Kamaljit Browning Potassium [Moles/Vol] 4.7 mmol/L Normal 3.5-5.1 [facility] Comment on above: Performed By: #### A 1C #### [facility] [address] [address] [address] Kamaljit Browning Protein [Mass/Vol] 7.5 g/dL Normal 6.4-8.2 [facility] Comment on above: Performed By: #### A 1C #### [facility] [address] [place] [address] Dr. Kamaljit Browning Sodium [Moles/Vol] 140 mmol/L Normal 136-145 [facility] Comment on above: Performed By: #### A 1C #### [facility] [address] [address] [address] Kamaljit Browning Urea nitrogen [Mass/Vol] 30.0 mg/dL Critically high 7.0-18.0 [facility] Comment on above: Performed By: #### A 1C #### [facility] [address] [place] [address] Dr. Kamaljit Browning Urea nitrogen/Creatinine [Mass ratio] 19.4 mg/mg Normal [facility] Comment on above: Performed By: #### A 1C #### [facility] [address] [place] [address] Dr. Kamaljit Browning TSHon 11-14-2022 TSH 1.597 uIU/mL Normal 0.358-3.740 [facility] Comment on above: Performed By: #### A 1C #### [facility] [address] [place] [address] Dr. Kamaljit Browning URIC ACID SERUMon 11-14-2022 Urate [Mass/Vol] 9.4 mg/dL Critically high 3.5-7.2 [facility] Comment on above: Performed By: #### C BC #### [facility] [address] [place] [address] Dr. Kamaljit Browning OCC BLD IMMUNO SCREENon 10-27 OCCULT BLOOD Positive Abnormal NEGATIVE [facility] Comment on above: Performed By: #### C MP, BNP #### [facility] [address] [place] [address] Dr. Kamaljit Browning POINT OF CARE GLUCOSEon 05-29 Glucose [Mass/Vol] 329 mg/dL Critically high 74-106 T [facility] Comment on above: Performed By: #### A 1C #### [facility] [address] [place] [address] Dr. Kamaljit Browning Covid-19 PCR ([facility]on SARS-CoV-2 (COVID-19) RNA SOURAV+probe Ql (Unsp spec) Not detected Normal NOT DETECTED [facility] Comment on above: Result Comment: When [...] for this test is supported by the [place] of Health and Human Service's declaration that [...] used). Performed By: #### A 1C #### [facility] [address] [place] [address] Dr. Kamaljit Browning INFLUENZA A AND B [facility] 06-02 [facility] SEE BELOW Normal [facility] Comment on above: Result Comment: Nega tive for Flu A protein angiten. Infection due to Flu A cannot be ruled out. Flu A angiten in the sample may be below the detection limit of the test. Performed By: #### C BC #### [facility] [address] [place] [address] Dr. Kamaljit Brow[facility] Normal [facility] Comment on above: Result Comment: Nega tive for Flu B protein antigen. Infection due to Flu B cannot be ruled out. Flu B antigen in the sample may be below the detection limit of the test. Performed By: #### C BC #### [facility] [address] [place] [address] Dr. Kamaljit Browning INFLUENZA A AG Negative Normal NEGATIVE SEE COMMENT [facility] Comment on above: Performed By: #### C BC #### [facility] [address] [place] [address] Dr. Kamaljit Browning INFLUENZA B AG Negative Normal NEGATIVE SEE COMMENT [facility] Comment on above: Performed By: #### C BC #### [facility] [address] [place] [address] Dr. Kamaljit Browning INTERNAL CONTROLS Within Normal Limits Normal Wi thin Normal Limits [facility] Comment on above: Performed By: #### C BC #### [facility] [address] [address] [address] Kamaljit Browning PROF CHEM 8 (BAS METB)on Anion gap [Moles/Vol] 13.1 mmol/L Normal [facility] Comment on above: Performed By: #### C BC #### [facility] [address] [address] [address] Kamaljit Browning Calcium [Mass/Vol] 8.9 mg/dL Normal 8.5-10.1 [facility] Comment on above: Performed By: #### C BC #### [facility] [address] [address] [address] Kamaljit Browning Chloride [Moles/Vol] 105 mmol/L Normal 98-107 [facility] Comment on above: Performed By: #### C BC #### [facility] [address] [place] [address] Dr. Kamaljit Browning CO2 [Moles/Vol] 27.3 mmol/L Normal 21.0-32.0 [facility] Comment on above: Performed By: #### C BC #### [facility] [address] [place] [address] Dr. Kamaljit Browning Creatinine [Mass/Vol] 1.28 mg/dL Normal 0.70-1.30 [facility] Comment on above: Performed By: #### C BC #### [facility] [address] [place] [address] Dr. Kamaljit Browning EGFR-AF [facility] >60 Normal >=60 [facility] Comment on above: Performed By: #### C BC #### [facility] [address] [place] [address] Dr. Kamaljit Browning EGFR-NON AF [facility] 56 mL/min/1.73m2 Critically low >=60 [facility] Comment on above: Performed By: #### C BC #### [facility] [address] [address] [address] Kamaljit Browning Glucose [Mass/Vol] 119 mg/dL Critically high 74-106 T [facility] Comment on above: Performed By: #### C BC #### [facility] [address] [address] [address] Kamaljit Browning Potassium [Moles/Vol] 4.4 mmol/L Normal 3.5-5.1 [facility] Comment on above: Performed By: #### C BC #### [facility] [address] [address] [address] Kamaljit Browning Sodium [Moles/Vol] 141 mmol/L Normal 136-145 [facility] Comment on above: Performed By: #### C BC #### [facility] [address] [address] [address] Kamaljit Browning Urea nitrogen [Mass/Vol] 20.0 mg/dL Critically high 7.0-18.0 [facility] Comment on above: Performed By: #### C BC #### [facility] [address] [place] [address] Dr. Kamaljit Browning Urea nitrogen/Creatinine [Mass ratio] 15.6 mg/mg Normal [facility] Comment on above: Performed By: #### C BC #### [facility] [address] [address] [address] Kamaljit Browning METANEPHRINES PLASMA FREEon 01-18-2022 Metanephrine, Pl 46.2 pg/mL Normal 0.0-88.0 [facility] Comment on above: Performed By: #### C MP, BNP #### [facility] [address] [place] [address] Dr. Kamaljit Browning Normetanephrine, Pl 33.2 pg/mL Normal 0.0-285.2 [facility] Comment on above: Performed By: #### C MP, BNP #### [facility] [address] [address] [address] Kamaljit Browning ALDOSTERONE: RENIN RATIOon 0 01-08-2022 Aldos/Renin Ratio UPTCAL Normal [facility] Comment on above: Result Comment: Unab le to calculate result since non-numeric result obtained for component test. Units: ng/dL per ng/mL/hr Performed By: #### A LDOREN #### [facility] [address] [address] [address] Kamaljit Browning Aldosterone <1.0 Normal 0.0-30.0 [facility] Comment on above: Performed By: #### A LDOREN #### [facility] [address] [place] [address] Dr. Kamaljit Browning Renin Activity, Plasma <0.167 Critically low 0.167-5.380 [facility] Comment on above: Performed By: #### A LDOREN #### [facility] [address] [place] [address] Dr. Kamaljit Browning CATECHOLAMINES FRAC, PLASMAo n 12-31-2021 Dopamine, Pl <30 Normal 0-48 [facility] Comment on above: Performed By: #### C MP, BNP #### [facility] [address] [place] [address] Dr. Kamaljit Browning Epinephrine, Pl 58 pg/mL Normal 0-62 [facility] Comment on above: Performed By: #### C MP, BNP #### [facility] [address] [place] [address] Dr. Kamaljit Browning Norepinephrine, Pl 246 pg/mL Normal 0-874 [facility] Comment on above: Performed By: #### C MP, BNP #### [facility] [address] [place] [address] Dr. Kamaljit Browning BNPon 12-26-2021 Natriuretic peptide B (Bld) [Mass/Vol] 126.0 pg/mL Normal <=900.0 [facility] Comment on above: Performed By: #### C MP, BNP #### [facility] [address] [place] [address] Dr. Kamaljit Browning CBC AUTO DIFFon 12-26-2021 BASO # 0.1 103/ul Normal 0.0-0.1 [facility] Comment on above: Performed By: #### C BC #### [facility] [address] [place] [address] Dr. Kamaljit Browning Basophils/100 WBC (Bld) 0.9 % Normal 0.2-2.0 [facility] Comment on above: Performed By: #### C BC #### [facility] [address] [place] [address] Dr. Kamaljit Browning EO # 0.1 103/ul Normal 0.0-0.7 [facility] Comment on above: Performed By: #### C BC #### [facility] [address] [place] [address] Dr. Kamaljit Browning Eosinophils/100 WBC (Bld) 1.0 % Normal 0.9-7.0 [facility] Comment on above: Performed By: #### C BC #### [facility] [address] [place] [address] Dr. Kamaljit Browning Erythrocyte distribution width (RBC) [Ratio] 12.1 % Normal 11.0-15.0 [facility] Comment on above: Performed By: #### C BC #### [facility] [address] [place] [address] Dr. Kamaljit rBowning Hematocrit (Bld) [Volume fraction] 39.2 % Critically low 42.0-54.0 [facility] Comment on above: Performed By: #### C BC #### [facility] [address] [place] [address] Dr. Kamaljit Browning Hemoglobin (Bld) [Mass/Vol] 13.2 g/dL Critically low 14.0-18.0 [facility] Comment on above: Performed By: #### C BC #### [facility] [address] [place] [address] Dr. Kamaljit Browning IG # 0.01 10e3/ul Normal 0.00-0.03 [facility] Comment on above: Performed By: #### C BC #### [facility] [address] [place] [address] Dr. Kamaljit Browning IG % 0.2 % Normal 0.0-0.5 [facility] Comment on above: Performed By: #### C BC #### [facility] [address] [place] [address] Dr. Kamaljit Browning LYMPH # 1.1 103/ul Critically low 1.2-3.8 [facility] Comment on above: Performed By: #### C BC #### [facility] [address] [place] [address] Dr. Kamaljit Browning Lymphocytes/100 WBC (Bld) 18.5 % Critically low 20.5-60.0 [facility] Comment on above: Performed By: #### C BC #### [facility] [address] [place] [address] Dr. Kamaljit Browning MANUAL DIFF REQ NO Normal [facility] Comment on above: Performed By: #### C BC #### [facility] [address] [place] [address] Dr. Kamaljit Browning MCH (RBC) [Entitic mass] 30.5 pg Normal 25.9-34.0 [facility] Comment on above: Performed By: #### C BC #### [facility] [address] [place] [address] Dr. Kamaljit Browning MCHC (RBC) [Mass/Vol] 33.7 g/dL Normal 29.9-35.2 [facility] Comment on above: Performed By: #### C BC #### [facility] [address] [place] [address] Dr. Kamaljit Browning MCV (RBC) [Entitic vol] 90.5 fL Normal 80.0-94.0 [facility] Comment on above: Performed By: #### C BC #### [facility] [address] [place] [address] Dr. Kamaljit Browning MONO # 0.4 103/ul Normal 0.3-0.8 [facility] Comment on above: Performed By: #### C BC #### [facility] [address] [place] [address] Dr. Kamaljit Browning Monocytes/100 WBC (Bld) 7.7 % Normal 1.7-12.0 [facility] Comment on above: Performed By: #### C BC #### [facility] [address] [place] [address] Dr. Kamaljit Browning NEUT # 4.1 103/ul Normal 1.4-6.5 [facility] Comment on above: Performed By: #### C BC #### [facility] [address] [place] [address] Dr. Kamaljit Browning Neutrophils/100 WBC (Bld) 71.7 % Normal 43.0-75.0 [facility] Comment on above: Performed By: #### C BC #### [facility] [address] [place] [address] Dr. Kamaljit Browning Platelet mean volume (Bld) [Entitic vol] 12.9 fL Normal 9.5-13.5 [facility] Comment on above: Performed By: #### C BC #### [facility] [address] [place] [address] Dr. Kamaljit Browning PLT 129 103/ul Critically low 150-450 [facility] Comment on above: Performed By: #### C BC #### [facility] [address] [place] [address] Dr. Kamaljit Browning RBC 4.33 106/ul Critically low 4.70-6.10 [facility] Comment on above: Performed By: #### C BC #### [facility] [address] [place] [address] Dr. Kamaljit Browning WBC 5.7 103/ul Normal 4.0-11.0 [facility] Comment on above: Performed By: #### C BC #### [facility] [address] [place] [address] Dr. Kamaljit Browning PROF 14(COMP METB)on 022 Albumin [Mass/Vol] 3.9 g/dL Normal 3.4-5.0 [facility] Comment on above: Performed By: #### C MP, BNP #### [facility] [address] [place] [address] Dr. Kamaljit Browning Albumin/Globulin [Mass ratio] 1.2 {ratio} Normal [facility] Comment on above: Performed By: #### C MP, BNP #### [facility] [address] [place] [address] Dr. Kamaljit Browning ALP [Catalytic activity/Vol] 83 U/L Normal 46-116 [facility] Comment on above: Performed By: #### C MP, BNP #### [facility] [address] [place] [address] Dr. Kamaljit Browning ALT [Catalytic activity/Vol] 30 U/L Normal 16-63 [facility] Comment on above: Performed By: #### C MP, BNP #### [facility] [address] [place] [address] Dr. Kamaljit Browning Anion gap [Moles/Vol] 12.6 mmol/L Normal [facility] Comment on above: Performed By: #### C MP, BNP #### [facility] [address] [place] [address] Dr. Kamaljit Browning AST [Catalytic activity/Vol] 28 U/L Normal 15-37 [facility] Comment on above: Performed By: #### C MP, BNP #### [facility] [address] [place] [address] Dr. Kamaljit Browning Bilirubin [Mass/Vol] 0.6 mg/dL Normal 0.2-1.0 [facility] Comment on above: Performed By: #### C MP, BNP #### [facility] [address] [place] [address] Dr. Kamaljit Browning Calcium [Mass/Vol] 8.9 mg/dL Normal 8.5-10.1 [facility] Comment on above: Performed By: #### C MP, BNP #### [facility] [address] [place] [address] Dr. Kamaljit Browning Chloride [Moles/Vol] 107 mmol/L Normal 98-107 [facility] Comment on above: Performed By: #### C MP, BNP #### [facility] [address] [place] [address] Dr. Kamaljit Browning CO2 [Moles/Vol] 26.4 mmol/L Normal 21.0-32.0 [facility] Comment on above: Performed By: #### C MP, BNP #### [facility] [address] [place] [address] Dr. Kamaljit Browning Creatinine [Mass/Vol] 1.11 mg/dL Normal 0.70-1.30 [facility] Comment on above: Performed By: #### C MP, BNP #### [facility] [address] [place] [address] Dr. Kamaljit Browning EGFR-AF [facility] >60 Normal >=60 [facility] Comment on above: Performed By: #### C MP, BNP #### [facility] [address] [place] [address] Dr. Kamaljit Browning EGFR-NON AF [facility] >60 Normal >=60 [facility] Comment on above: Performed By: #### C MP, BNP #### [facility] [address] [place] [address] Dr. Kamaljit Browning Globulin (S) [Mass/Vol] 3.2 g/dL Normal [facility] Comment on above: Performed By: #### C MP, BNP #### [facility] [address] [place] [address] Dr. Kamaljit Browning Glucose [Mass/Vol] 112 mg/dL Critically high 74-106 [facility] Comment on above: Performed By: #### C MP, BNP #### [facility] [address] [place] [address] Dr. Kamaljit Browning Potassium [Moles/Vol] 4.0 mmol/L Normal 3.5-5.1 [facility] Comment on above: Performed By: #### C MP, BNP #### [facility] [address] [place] [address] Dr. Kamaljit Browning Protein [Mass/Vol] 7.1 g/dL Normal 6.4-8.2 [facility] Comment on above: Performed By: #### C MP, BNP #### [facility] [address] [place] [address] Dr. Kamaljit Browning Sodium [Moles/Vol] 142 mmol/L Normal 136-145 [facility] Comment on above: Performed By: #### C MP, BNP #### [facility] [address] [place] [address] Dr. Kamaljit Browning Urea nitrogen [Mass/Vol] 15.0 mg/dL Normal 7.0-18.0 [facility] Comment on above: Performed By: #### C MP, BNP #### [facility] [address] [place] [address] Dr. Kamaljit Browning Urea nitrogen/Creatinine [Mass ratio] 13.5 mg/mg Normal [facility] Comment on above: Performed By: #### C MP, BNP #### [facility] [address] [place] [address] Dr. Kamaljit Browning PROTIMEon 12-26-2021 INR Coag (PPP) [Relative time] 3.98 {INR} Normal [facility] Comment on above: Performed By: #### A 1C #### [facility] [address] [place] [address] Dr. Kamaljit Browning INR GUIDELINES SEE BELOW Normal [facility] Comment on above: Result Comment: NILDA RED INR: 2.0 - 3.0 CONDITIONS NOT LISTED BELOW 2.5 - 3.5 FOR PROSTHETIC HEART VALVE REPLACEMENT 2.5 - 3.5 RECURRENT THROMBOSIS Performed By: #### A 1C #### [facility] [address] [place] [address] Dr. Kamaljit Browning PT Coag (PPP) [Time] 39.3 s Critically high 9.0-11.6 [facility] Comment on above: Performed By: #### A 1C #### [facility] [address] [place] [address] Dr. Kamaljit Browning T3, TOTAL (TRIIODOTHYRONINE) on 12-26-2021 T3, TOTAL 67 ng/dL Critically low 71-180 [facility] Comment on above: Performed By: #### C BC #### [facility] [address] [place] [address] Dr. Kamaljit Browning US VASCULAR ORG CMPLon [...] LISBET BRANCH Date: 2021-12-26 09:34 Normal [facility] BNPon 12-25-2021 Natriuretic peptide B (Bld) [Mass/Vol] 106.0 pg/mL Normal <=900.0 [facility] Comment on above: Performed By: #### C MP, BNP #### [facility] [address] [place] [address] Dr. Kamaljit Browning CARDIAC GABRIELLA 3-6on 2 CK [Catalytic activity/Vol] 92 U/L Normal 39-308 [facility] Comment on above: Performed By: #### C MP, BNP #### [facility] [address] [place] [address] Dr. Kamaljit Browning CK.MB [Mass/Vol] 1.08 ng/mL Normal <=3.60 [facility] Comment on above: Performed By: #### C MP, BNP #### [facility] [address] [place] [address] Dr. Kamlajit Browning HSTROP 21.7 pg/mL Normal 4.0-76.1 [facility] Comment on above: Result Comment: CUT- OFF POINTS HAVE BEEN ESTABLISHED BASED ON THE FOURTH UNIVERSAL DEFINITIONS OF MYOCARDIAL INFARCTION. THE UPPER REFERENCE LIMIT (URL) OF TROPONIN, DEFINED THE 99TH PERCENTILE OF cTnI DISTRIBUTION IN A REFERENCE POPULATION, HAS BEEN CONFIRMED THE DECISION THRESHOLD FOR NV DIAGNOSIS. Performed By: #### C MP, BNP #### [facility] [address] [place] [address] Dr. Kamaljit Browning CK [Catalytic activity/Vol] 98 U/L Normal 39-308 [facility] Comment on above: Performed By: #### C MP, BNP #### [facility] [address] [address] [address] Kamaljit Browning CK.MB [Mass/Vol] 1.25 ng/mL Normal <=3.60 [facility] Comment on above: Performed By: #### C MP, BNP #### [facility] [address] [place] [address] Dr. Kamaljit Browning HSTROP 23.6 pg/mL Normal 4.0-76.1 [facility] Comment on above: Result Comment: CUT- OFF POINTS HAVE BEEN ESTABLISHED BASED ON THE FOURTH UNIVERSAL DEFINITIONS OF MYOCARDIAL INFARCTION. THE UPPER REFERENCE LIMIT (URL) OF TROPONIN, DEFINED THE 99TH PERCENTILE OF cTnI DISTRIBUTION IN A REFERENCE POPULATION, HAS BEEN CONFIRMED THE DECISION THRESHOLD FOR NV DIAGNOSIS. Performed By: #### C MP, BNP #### [facility] [address] [place] [address] Dr. Kamaljit Browning CARDIAC GABRIELLA ADMITon 022 CK [Catalytic activity/Vol] 105 U/L Normal 39-308 [facility] Comment on above: Performed By: #### C MP, BNP #### [facility] [address] [place] [address] Dr. Kamaljit Browning CK.MB [Mass/Vol] 0.99 ng/mL Normal <=3.60 [facility] Comment on above: Performed By: #### C MP, BNP #### [facility] [address] [place] [address] Dr. Kamaljit Browning HSTROP 24.9 pg/mL Normal 4.0-76.1 [facility] Comment on above: Result Comment: CUT- OFF POINTS HAVE BEEN ESTABLISHED BASED ON THE FOURTH UNIVERSAL DEFINITIONS OF MYOCARDIAL INFARCTION. THE UPPER REFERENCE LIMIT (URL) OF TROPONIN, DEFINED THE 99TH PERCENTILE OF cTnI DISTRIBUTION IN A REFERENCE POPULATION, HAS BEEN CONFIRMED THE DECISION THRESHOLD FOR NV DIAGNOSIS. Performed By: #### C MP, BNP #### [facility] [address] [place] [address] Dr. Kamaljit Browning SANDI 51 ng/mL Normal 16-96 [facility] Comment on above: Performed By: #### C MP, BNP #### [facility] [address] [address] [address] Kamaljit Browning CBC AUTO DIFFon 12-25-2021 BASO # 0.1 103/ul Normal 0.0-0.1 [facility] Comment on above: Performed By: #### C BC #### [facility] [address] [address] [address] Kamaljit Browning Basophils/100 WBC (Bld) 0.8 % Normal 0.2-2.0 [facility] Comment on above: Performed By: #### C BC #### [facility] [address] [place] [address] Dr. Kamaljit Browning EO # 0.1 103/ul Normal 0.0-0.7 [facility] Comment on above: Performed By: #### C BC #### [facility] [address] [place] [address] Dr. Kamaljit Browning Eosinophils/100 WBC (Bld) 1.0 % Normal 0.9-7.0 [facility] Comment on above: Performed By: #### C BC #### [facility] [address] [place] [address] Dr. Kamaljit Browning Erythrocyte distribution width (RBC) [Ratio] 12.1 % Normal 11.0-15.0 [facility] Comment on above: Performed By: #### C BC #### [facility] [address] [place] [address] Dr. Kamaljit Browning Hematocrit (Bld) [Volume fraction] 42.2 % Normal 42.0-54.0 [facility] Comment on above: Performed By: #### C BC #### [facility] [address] [place] [address] Dr. Kamaljit Browning Hemoglobin (Bld) [Mass/Vol] 14.2 g/dL Normal 14.0-18.0 [facility] Comment on above: Performed By: #### C BC #### [facility] [address] [place] [address] Dr. Kamaljit Browning IG # 0.02 10e3/ul Normal 0.00-0.03 [facility] Comment on above: Performed By: #### C BC #### [facility] [address] [place] [address] Dr. Kamaljit Browning IG % 0.3 % Normal 0.0-0.5 [facility] Comment on above: Performed By: #### C BC #### [facility] [address] [place] [address] Dr. Kamaljit Browning LYMPH # 0.9 103/ul Critically low 1.2-3.8 [facility] Comment on above: Performed By: #### C BC #### [facility] [address] [place] [address] Dr. Kamaljit Browning Lymphocytes/100 WBC (Bld) 14.7 % Critically low 20.5-60.0 [facility] Comment on above: Performed By: #### C BC #### [facility] [address] [place] [address] Dr. Kamaljit Browning MANUAL DIFF REQ NO Normal [facility] Comment on above: Performed By: #### C BC #### [facility] [address] [place] [address] Dr. Kamaljit Browning MCH (RBC) [Entitic mass] 30.4 pg Normal 25.9-34.0 [facility] Comment on above: Performed By: #### C BC #### [facility] [address] [place] [address] Dr. Kamaljit Browning MCHC (RBC) [Mass/Vol] 33.6 g/dL Normal 29.9-35.2 [facility] Comment on above: Performed By: #### C BC #### [facility] [address] [place] [address] Dr. Kamaljit Browning MCV (RBC) [Entitic vol] 90.4 fL Normal 80.0-94.0 [facility] Comment on above: Performed By: #### C BC #### [facility] [address] [place] [address] Dr. Kamaljit Browning MONO # 0.4 103/ul Normal 0.3-0.8 [facility] Comment on above: Performed By: #### C BC #### [facility] [address] [address] [address] Kamaljit Browning Monocytes/100 WBC (Bld) 6.5 % Normal 1.7-12.0 [facility] Comment on above: Performed By: #### C BC #### [facility] [address] [address] [address] Kamaljit Browning NEUT # 4.6 103/ul Normal 1.4-6.5 [facility] Comment on above: Performed By: #### C BC #### [facility] [address] [address] [address] Kamaljit Browning Neutrophils/100 WBC (Bld) 76.7 % Critically high 43.0-75.0 [facility] Comment on above: Performed By: #### C BC #### [facility] [address] [place] [address] Dr. Kamaljit Browning Platelet mean volume (Bld) [Entitic vol] 12.2 fL Normal 9.5-13.5 [facility] Comment on above: Performed By: #### C BC #### [facility] [address] [address] [address] Kamaljit Browning PLT 120 103/ul Critically low 150-450 [facility] Comment on above: Performed By: #### C BC #### [facility] [address] [place] [address] Dr. Kamaljit Browning RBC 4.67 106/ul Critically low 4.70-6.10 [facility] Comment on above: Performed By: #### C BC #### [facility] [address] [address] [address] Kamaljit Browning WBC 6.0 103/ul Normal 4.0-11.0 [facility] Comment on above: Performed By: #### C BC #### [facility] [address] [place] [address] Dr. Kamaljit Browning CULTURE URINEon 12-25-2021 CULTURE URINE Culture Observations : NO GROWTH. Normal [facility] Comment on above: Performed By: #### C MP, BNP #### [facility] [address] [place] [address] [id number] [address] Kamaljit Browning Covid-19 PCR (CVDTB)on 11-28 SARS-CoV-2 (COVID-19) RNA SOURAV+probe Ql (Unsp spec) Not detected Normal NOT DETECTED [facility] Comment on above: Result Comment: When [...] for this test is supported by the [employer] of Health and Human Service's declaration that [...] used). Performed By: #### C BC #### [facility] [address] [place], [place] [id number] Dr. Kamaljit Browning ECHOCARDIO M/2D COMPLETEon 0 12-25-2021 ECHOCARDIO M/2D COMPLETE Patient: MARTIN WEST Exam Date: 12/25/2021 : 1950 Gender:M Ordering : DR PETRA WOOTEN . Admission #: [id number] Family : DR ALAYNA KIM M.D. Order #: [id number] CLICK HERE TO VIEW EXAM ECHOCARDIOGRAM REPORT [...] Area(A4C): 22.50 cm2 Left Atrium Systolic Volume(A2C): 95692 mm3 Left Atrium Systolic Volume(A4C): 61073 mm3 Mitral Valve MV E to A Ratio: 1 Deceleration Schley: 5860 mm/s2 Mitral Valve A-Wave Peak Velocity: [...] Reddy M.D. on 12/25/2021 at 16:48 Normal [facility] MAGNESIUMon 12-25-2021 Magnesium [Mass/Vol] 2.2 mg/dL Normal 1.8-2.4 [facility] Comment on above: Performed By: #### C MP, BNP #### [facility] [address] [place] [address] Dr. Kamaljit Browning PHOSPHORUSon 12-25-2021 Phosphate [Mass/Vol] 3.2 mg/dL Normal 2.6-4.7 [facility] Comment on above: Performed By: #### C MP, BNP #### [facility] [address] [place] [address] Dr. Kamaljit Browning PROF 14(COMP METB)on 022 Albumin [Mass/Vol] 4.4 g/dL Normal 3.4-5.0 [facility] Comment on above: Performed By: #### C MP, BNP #### [facility] [address] [place] [address] Dr. Kamaljit Browning Albumin/Globulin [Mass ratio] 1.2 {ratio} Normal [facility] Comment on above: Performed By: #### C MP, BNP #### [facility] [address] [place] [address] Dr. Kamaljit Browning ALP [Catalytic activity/Vol] 95 U/L Normal 46-116 [facility] Comment on above: Performed By: #### C MP, BNP #### [facility] [address] [address] [address] Kamaljit Browning ALT [Catalytic activity/Vol] 30 U/L Normal 16-63 [facility] Comment on above: Performed By: #### C MP, BNP #### [facility] [address] [address] [address] Kamaljit Browning Anion gap [Moles/Vol] 12.0 mmol/L Normal [facility] Comment on above: Performed By: #### C MP, BNP #### [facility] [address] [place] [address] Dr. Kamaljit Browning AST [Catalytic activity/Vol] 27 U/L Normal 15-37 [facility] Comment on above: Performed By: #### C MP, BNP #### [facility] [address] [place] [address] Dr. Kamaljit Browning Bilirubin [Mass/Vol] 0.8 mg/dL Normal 0.2-1.0 [facility] Comment on above: Performed By: #### C MP, BNP #### [facility] [address] [place] [address] Dr. Kamaljit Browning Calcium [Mass/Vol] 9.1 mg/dL Normal 8.5-10.1 [facility] Comment on above: Performed By: #### C MP, BNP #### [facility] [address] [place] [address] Dr. Kamaljit Browning Chloride [Moles/Vol] 107 mmol/L Normal 98-107 [facility] Comment on above: Performed By: #### C MP, BNP #### [facility] [address] [place] [address] Dr. Kamaljit Browning CO2 [Moles/Vol] 27.6 mmol/L Normal 21.0-32.0 [facility] Comment on above: Performed By: #### C MP, BNP #### [facility] [address] [place] [address] Dr. Kamaljit Browning Creatinine [Mass/Vol] 1.01 mg/dL Normal 0.70-1.30 [facility] Comment on above: Performed By: #### C MP, BNP #### [facility] [address] [place] [address] Dr. Kamaljit Browning EGFR-AF [facility] LUCIAN >60 Normal >=60 [facility] Comment on above: Performed By: #### C MP, BNP #### [facility] [address] [place] [address] Dr. Kamaljit Browning EGFR-NON AF [facility] LUCIAN >60 Normal >=60 [facility] Comment on above: Performed By: #### C MP, BNP #### [facility] [address] [place] [address] Dr. Kamaljit Browning Globulin (S) [Mass/Vol] 3.6 g/dL Normal [facility] Comment on above: Performed By: #### C MP, BNP #### [facility] [address] [place] [address] Dr. Kamaljit Browning Glucose [Mass/Vol] 123 mg/dL Critically high 74-106 [facility] Comment on above: Performed By: #### C MP, BNP #### [facility] [address] [place] [address] Dr. Kamaljit Browning Potassium [Moles/Vol] 4.6 mmol/L Normal 3.5-5.1 [facility] Comment on above: Performed By: #### C MP, BNP #### [facility] [address] [place] [address] Dr. Kamaljit Browning Protein [Mass/Vol] 8.0 g/dL Normal 6.4-8.2 [facility] Comment on above: Performed By: #### C MP, BNP #### [facility] [address] [place] [address] Dr. Kamaljit Browning Sodium [Moles/Vol] 142 mmol/L Normal 136-145 [facility] Comment on above: Performed By: #### C MP, BNP #### [facility] [address] [place] [address] Dr. Kamaljit Browning Urea nitrogen [Mass/Vol] 12.0 mg/dL Normal 7.0-18.0 [facility] Comment on above: Performed By: #### C MP, BNP #### [facility] [address] [place] [address] Dr. Kamaljit Browning Urea nitrogen/Creatinine [Mass ratio] 11.9 mg/mg Normal [facility] Comment on above: Performed By: #### C MP, BNP #### [facility] [address] [place] [address] Dr. Kamaljit Browning PROTIMEon 12-25-2021 INR Coag (PPP) [Relative time] 3.75 {INR} Normal [facility] Comment on above: Performed By: #### P T, PTT #### [facility] [address] [place] [address] Dr. Kamaljit Browning INR GUIDELINES SEE BELOW Normal [facility] Comment on above: Result Comment: NILDA RED INR: 2.0 - 3.0 CONDITIONS NOT LISTED BELOW 2.5 - 3.5 FOR PROSTHETIC HEART VALVE REPLACEMENT 2.5 - 3.5 RECURRENT THROMBOSIS Performed By: #### P T, PTT #### [facility] [address] [place] [address] Dr. Kamaljit Browning PT Coag (PPP) [Time] 37.1 s Critically high 9.0-11.6 [facility] Comment on above: Performed By: #### P T, PTT #### [facility] [address] [place] [address] Dr. Kamaljit Browning PTTon 12-25-2021 aPTT Coag (Bld) [Time] 55.4 s Critically high 22.3-36.2 [facility] Comment on above: Performed By: #### P T, PTT #### [facility] [address] [place] [address] Dr. Kamaljit Browning T4on 12-25-2021 T4 [Mass/Vol] 8.90 ug/dL Normal 4.50-12.10 [facility] Comment on above: Performed By: #### C MP, BNP #### [facility] [address] [place] [address] Dr. Kamaljit Browning TSHon 12-25-2021 TSH 0.778 uIU/mL Normal 0.358-3.740 [facility] Comment on above: Performed By: #### C MP, BNP #### [facility] [address] [place] [address] Dr. Kamaljit Browning UA RANDOM W/MICROSCOPICon BACTERIA NONE SEEN Normal NONE SEEN [facility] Comment on above: Performed By: #### A 1C #### [facility] [address] [place] [address] Dr. Kamaljit Browning Bilirubin Ql (U) Negative Normal NEGATIVE [facility] Comment on above: Performed By: #### A 1C #### [facility] [address] [place] [address] Dr. Kamaljit Browning CAST NONE SEEN Normal NONE SEEN [facility] Comment on above: Performed By: #### A 1C #### [facility] [address] [place] [address] Dr. Kamaljit Browning Clarity (U) CLEAR Normal CLEAR [facility] Comment on above: Performed By: #### A 1C #### [facility] [address] [place] [address] Dr. Kamaljit Browning Color (U) LT. YELLOW Normal YELLOW [facility] Comment on above: Performed By: #### A 1C #### [facility] [address] [place] [address] Dr. Kamaljit Browning Crystals LM Nom (Urine sed) NONE SEEN Normal NONE SEEN [facility] Comment on above: Performed By: #### A 1C #### [facility] [address] [place] [address] Dr. Kamaljit Browning Epithelial cells LM Ql (Urine sed) NONE SEEN Normal NONE SEEN /RARE [facility] Comment on above: Performed By: #### A 1C #### [facility] [address] [place] [address] Dr. Kamaljit Browning Glucose Ql (U) Negative Normal NEGATIVE [facility] Comment on above: Performed By: #### A 1C #### [facility] [address] [place] [address] Dr. Kamaljit Browning Hemoglobin Ql (U) Negative Normal NEGATIVE [facility] Comment on above: Performed By: #### A 1C #### [facility] [address] [place] [address] Dr. Kamaljit Browning Ketones Ql (U) Negative Normal NEGATIVE [facility] Comment on above: Performed By: #### A 1C #### [facility] [address] [place] [address] Dr. Kamaljit Browning LEUKOCYTES Negative Normal NEGATIVE [facility] Comment on above: Performed By: #### A 1C #### [facility] [address] [place] [address] Dr. Kamaljit Browning MUCOUS NONE SEEN Normal NONE SEEN [facility] Comment on above: Performed By: #### A 1C #### [facility] [address] [place] [address] Dr. Kamaljit Browning Nitrite Ql (U) Negative Normal NEGATIVE [facility] Comment on above: Performed By: #### A 1C #### [facility] [address] [place] [address] Dr. Kamaljit Browning pH (U) 6.0 [pH] Normal 5-9 [facility] Comment on above: Performed By: #### A 1C #### [facility] [address] [place] [address] Dr. Kamaljit Browning RBC NONE SEEN Abnormal 0-2 [facility] Comment on above: Performed By: #### A 1C #### [facility] [address] [place] [address] Dr. Kamaljit Browning SPEC GRAVITY 1.010 Normal 1.005-<=1.025 [facility] Comment on above: Performed By: #### A 1C #### [facility] [address] [place] [address] Dr. Kamaljit Browning UA PROTEIN Negative Normal NEGATIVE/ TRACE [facility] Comment on above: Performed By: #### A 1C #### [facility] [address] [place] [address] Dr. Kamaljit Browning Urobilinogen Qn (U) 0.2 {Mari'U}/dL Normal 0.2 - 1. 0 [facility] Comment on above: Performed By: #### A 1C #### [facility] [address] [place] [address] Dr. Kamaljit Browning WBC NONE SEEN Normal NONE SEEN [facility] Comment on above: Performed By: #### A 1C #### [facility] [address] [place] [address] Dr. Kamaljit Browning CBC AUTO DIFFon 12-18-2021 BASO # 0.0 103/ul Normal 0.0-0.1 [facility] Comment on above: Performed By: #### C BC #### [facility] [address] [place] [address] Dr. Kamaljit Browning Basophils/100 WBC (Bld) 0.6 % Normal 0.2-2.0 [facility] Comment on above: Performed By: #### C BC #### [facility] [address] [place] [address] Dr. Kamaljit Browning EO # 0.1 103/ul Normal 0.0-0.7 [facility] Comment on above: Performed By: #### C BC #### [facility] [address] [place] [address] Dr. Kamaljit Browning Eosinophils/100 WBC (Bld) 1.1 % Normal 0.9-7.0 [facility] Comment on above: Performed By: #### C BC #### [facility] [address] [place] [address] Dr. Kamaljit Browning Erythrocyte distribution width (RBC) [Ratio] 12.5 % Normal 11.0-15.0 [facility] Comment on above: Performed By: #### C BC #### [facility] [address] [place] [address] Dr. Kamaljit Browning Hematocrit (Bld) [Volume fraction] 40.5 % Critically low 42.0-54.0 [facility] Comment on above: Performed By: #### C BC #### [facility] [address] [place] [address] Dr. Kamaljit Browning Hemoglobin (Bld) [Mass/Vol] 13.5 g/dL Critically low 14.0-18.0 [facility] Comment on above: Performed By: #### C BC #### [facility] [address] [place] [address] Dr. Kamaljit Browning IG # 0.02 10e3/ul Normal 0.00-0.03 [facility] Comment on above: Performed By: #### C BC #### [facility] [address] [place] [address] Dr. Kamaljit Browning IG % 0.3 % Normal 0.0-0.5 [facility] Comment on above: Performed By: #### C BC #### [facility] [address] [place] [address] Dr. Kamaljit Browning LYMPH # 1.0 103/ul Critically low 1.2-3.8 [facility] Comment on above: Performed By: #### C BC #### [facility] [address] [place] [address] Dr. Kamaljit Browning Lymphocytes/100 WBC (Bld) 14.8 % Critically low 20.5-60.0 [facility] Comment on above: Performed By: #### C BC #### [facility] [address] [place] [address] Dr. Kamaljit Browning MANUAL DIFF REQ NO Normal [facility] Comment on above: Performed By: #### C BC #### [facility] [address] [place] [address] Dr. Kamaljit Browning MCH (RBC) [Entitic mass] 30.3 pg Normal 25.9-34.0 [facility] [facility] Comment on above: Performed By: #### C BC #### [facility] [address] [place] [address] Dr. Kamaljit Browning MCHC (RBC) [Mass/Vol] 33.3 g/dL Normal 29.9-35.2 [facility] Comment on above: Performed By: #### C BC #### [facility] [address] [place] [address] Dr. Kamaljit Browning MCV (RBC) [Entitic vol] 91.0 fL Normal 80.0-94.0 [facility] Comment on above: Performed By: #### C BC #### [facility] [address] [address] [address] Kamaljit Browning MONO # 0.6 103/ul Normal 0.3-0.8 [facility] Comment on above: Performed By: #### C BC #### [facility] [address] [address] [address] Kamaljit Browning Monocytes/100 WBC (Bld) 9.0 % Normal 1.7-12.0 [facility] Comment on above: Performed By: #### C BC #### [facility] [address] [address] [address] Kamaljit Browning NEUT # 5.2 103/ul Normal 1.4-6.5 [facility] Comment on above: Performed By: #### C BC #### [facility] [address] [place] [address] Dr. Kamaljit Browning Neutrophils/100 WBC (Bld) 74.2 % Normal 43.0-75.0 [facility] Comment on above: Performed By: #### C BC #### [facility] [address] [place] [address] Dr. Kamaljit Browning Platelet mean volume (Bld) [Entitic vol] 12.7 fL Normal 9.5-13.5 [facility] Comment on above: Performed By: #### C BC #### [facility] [address] [place] [address] Dr. Kamaljit Browning PLT 114 103/ul Critically low 150-450 [facility] Comment on above: Performed By: #### C BC #### [facility] [address] [place] [address] Dr. Kamaljit Browning RBC 4.45 106/ul Critically low 4.70-6.10 [facility] Comment on above: Performed By: #### C BC #### [facility] [address] [place] [address] Dr. Kamaljit Browning WBC 7.0 103/ul Normal 4.0-11.0 [facility] Comment on above: Performed By: #### C BC #### [facility] [address] [place] [address] Dr. Kamaljit Browning MAGNESIUMon 12-18-2021 Magnesium [Mass/Vol] 2.1 mg/dL Normal 1.8-2.4 [facility] Comment on above: Performed By: #### C BC #### [facility] [address] [address] [address] Kamaljit Browning PROF CHEM 8 (BAS METB)on Anion gap [Moles/Vol] 13.2 mmol/L Normal [facility] Comment on above: Performed By: #### C BC #### [facility] [address] [address] [address] Kamaljit Browning Calcium [Mass/Vol] 8.7 mg/dL Normal 8.5-10.1 [facility] Comment on above: Performed By: #### C BC #### [facility] [address] [place] [address] Dr. Kamaljit Browning Chloride [Moles/Vol] 108 mmol/L Critically high 98-107 [facility] Comment on above: Performed By: #### C BC #### [facility] [address] [address] [address] Kamaljit Browning CO2 [Moles/Vol] 25.7 mmol/L Normal 21.0-32.0 [facility] Comment on above: Performed By: #### C BC #### [facility] [address] [address] [address] Kamaljit Browning Creatinine [Mass/Vol] 1.10 mg/dL Normal 0.70-1.30 [facility] Comment on above: Performed By: #### C BC #### [facility] [address] [address] [address] Kamaljit Browning EGFR-AF [facility] LUCIAN >60 Normal >=60 [facility] Comment on above: Performed By: #### C BC #### [facility] [address] [address] [address] Kamaljit Browning EGFR-NON AF [facility] >60 Normal >=60 [facility] Comment on above: Performed By: #### C BC #### [facility] [address] [address] [address] Kamaljit Browning Glucose [Mass/Vol] 118 mg/dL Critically high 74-106 T [facility] Comment on above: Performed By: #### C BC #### [facility] [address] [address] [address] Kamaljit Browning Potassium [Moles/Vol] 3.9 mmol/L Normal 3.5-5.1 [facility] Comment on above: Performed By: #### C BC #### [facility] [address] [address] [address] Kamaljit Browning Sodium [Moles/Vol] 143 mmol/L Normal 136-145 [facility] Comment on above: Performed By: #### C BC #### [facility] [address] [place] [address] Dr. Kamaljit Browning Urea nitrogen [Mass/Vol] 12.0 mg/dL Normal 7.0-18.0 [facility] Comment on above: Performed By: #### C BC #### [facility] [address] [place] [address] Dr. Kamaljit Browning Urea nitrogen/Creatinine [Mass ratio] 10.9 mg/mg Normal [facility] Comment on above: Performed By: #### C BC #### [facility] [address] [place] [address] Dr. Kamaljit Browning PROTIMEon 12-18-2021 INR Coag (PPP) [Relative time] 2.47 {INR} Normal [facility] Comment on above: Performed By: #### C MP, BNP #### [facility] [address] [place] [address] Dr. Kamaljit Browning INR GUIDELINES SEE BELOW Normal [facility] Comment on above: Result Comment: NILDA RED INR: 2.0 - 3.0 CONDITIONS NOT LISTED BELOW 2.5 - 3.5 FOR PROSTHETIC HEART VALVE REPLACEMENT 2.5 - 3.5 RECURRENT THROMBOSIS Performed By: #### C MP, BNP #### [facility] [address] [place] [address] Dr. Kamaljit Browning PT Coag (PPP) [Time] 25.1 s Critically high 9.0-11.6 [facility] Comment on above: Performed By: #### C MP, BNP #### [facility] [address] [place] [address] Dr. Kamaljit Browning TSHon 12-18-2021 TSH 1.850 uIU/mL Normal 0.358-3.740 [facility] Comment on above: Performed By: #### C BC #### [facility] [address] [place] [address] Dr. Kamaljit Browning BNPon 12-17-2021 Natriuretic peptide B (Bld) [Mass/Vol] 50.0 pg/mL Normal <=900.0 [facility] Comment on above: Performed By: #### A 1C #### [facility] [address] [place] [address] Dr. Kamaljit Browning CBC AUTO DIFFon 12-17-2021 BASO # 0.1 103/ul Normal 0.0-0.1 [facility] Comment on above: Performed By: #### C BC #### [facility] [address] [place] [address] Dr. Kamaljit Browinng Basophils/100 WBC (Bld) 1.0 % Normal 0.2-2.0 [facility] Comment on above: Performed By: #### C BC #### [facility] [address] [place] [address] Dr. Kamaljit Browning EO # 0.1 103/ul Normal 0.0-0.7 [facility] Comment on above: Performed By: #### C BC #### [facility] [address] [place] [address] Dr. Kamaljit Browning Eosinophils/100 WBC (Bld) 1.2 % Normal 0.9-7.0 [facility] Comment on above: Performed By: #### C BC #### [facility] [address] [place] [address] Dr. Kamaljit Browning Erythrocyte distribution width (RBC) [Ratio] 12.4 % Normal 11.0-15.0 [facility] Comment on above: Performed By: #### C BC #### [facility] [address] [place] [address] Dr. Kamaljit Browning Hematocrit (Bld) [Volume fraction] 43.8 % Normal 42.0-54.0 [facility] Comment on above: Performed By: #### C BC #### [facility] [address] [place] [address] Dr. Kamaljit Browning Hemoglobin (Bld) [Mass/Vol] 14.4 g/dL Normal 14.0-18.0 [facility] Comment on above: Performed By: #### C BC #### [facility] [address] [place] [address] Dr. Kamaljit Browning IG # 0.02 10e3/ul Normal 0.00-0.03 [facility] Comment on above: Performed By: #### C BC #### [facility] [address] [place] [address] Dr. Kamaljit Browning IG % 0.3 % Normal 0.0-0.5 [facility] Comment on above: Performed By: #### C BC #### [facility] [address] [place] [address] Dr. Kamaljit Browning LYMPH # 1.1 103/ul Critically low 1.2-3.8 [facility] Comment on above: Performed By: #### C BC #### [facility] [address] [place] [address] Dr. Kamaljit Browning Lymphocytes/100 WBC (Bld) 18.5 % Critically low 20.5-60.0 [facility] Comment on above: Performed By: #### C BC #### [facility] [address] [place] [address] Dr. Kamaljit Browning MANUAL DIFF REQ NO Normal [facility] Comment on above: Performed By: #### C BC #### [facility] [address] [place] [address] Dr. Kamaljit Browning MCH (RBC) [Entitic mass] 30.2 pg Normal 25.9-34.0 [facility] Comment on above: Performed By: #### C BC #### [facility] [address] [place] [address] Dr. Kamaljit Browning MCHC (RBC) [Mass/Vol] 32.9 g/dL Normal 29.9-35.2 [facility] Comment on above: Performed By: #### C BC #### [facility] [address] [place] [address] Dr. Kamaljit Browning MCV (RBC) [Entitic vol] 91.8 fL Normal 80.0-94.0 [facility] Comment on above: Performed By: #### C BC #### [facility] [address] [place] [address] Dr. Kamaljit Browning MONO # 0.4 103/ul Normal 0.3-0.8 [facility] Comment on above: Performed By: #### C BC #### [facility] [address] [place] [address] Dr. Kamaljit Browning Monocytes/100 WBC (Bld) 7.4 % Normal 1.7-12.0 [facility] Comment on above: Performed By: #### C BC #### [facility] [address] [place] [address] Dr. Kamaljit Browning NEUT # 4.1 103/ul Normal 1.4-6.5 [facility] Comment on above: Performed By: #### C BC #### [facility] [address] [place] [address] Dr. Kamaljit Browning Neutrophils/100 WBC (Bld) 71.6 % Normal 43.0-75.0 [facility] Comment on above: Performed By: #### C BC #### [facility] [address] [place] [address] Dr. Kamaljit Browning Platelet mean volume (Bld) [Entitic vol] 12.4 fL Normal 9.5-13.5 [facility] Comment on above: Performed By: #### C BC #### [facility] [address] [place] [address] Dr. Kamaljit Browning PLT 111 103/ul Critically low 150-450 [facility] Comment on above: Performed By: #### C BC #### [facility] [address] [place] [address] Dr. Kamaljit Browning RBC 4.77 106/ul Normal 4.70-6.10 [facility] Comment on above: Performed By: #### C BC #### [facility] [address] [place] [address] Dr. Kamaljit Browning WBC 5.8 103/ul Normal 4.0-11.0 [facility] Comment on above: Performed By: #### C BC #### [facility] [address] [address] [address] Kamaljit Browning Covid-19 PCR ([facility])on 11-28 SARS-CoV-2 (COVID-19) RNA SOURAV+probe Ql (Unsp spec) Not detected Normal NOT DETECTED [facility] Comment on above: Result Comment: When [...] for this test is supported by the [place] of Health and Human Service's declaration that [...] Performed By: #### C MP, BNP #### [facility] [address] [place] [address] Dr. Kamaljit Browning PROF 14(COMP METB)on 022 Albumin [Mass/Vol] 4.3 g/dL Normal 3.4-5.0 [facility] Comment on above: Performed By: #### A 1C #### [facility] [address] [place] [address] Dr. Kamaljit Browning Albumin/Globulin [Mass ratio] 1.2 {ratio} Normal [facility] Comment on above: Performed By: #### A 1C #### [facility] [address] [place] [address] Dr. Kamaljit Browning ALP [Catalytic activity/Vol] 115 U/L Normal 46-116 [facility] Comment on above: Performed By: #### A 1C #### [facility] [address] [place] [address] Dr. Kamaljit Browning ALT [Catalytic activity/Vol] 35 U/L Normal 16-63 [facility] Comment on above: Performed By: #### A 1C #### [facility] [address] [place] [address] Dr. Kamaljit Browning Anion gap [Moles/Vol] 15.0 mmol/L Normal [facility] Comment on above: Performed By: #### A 1C #### [facility] [address] [place] [address] Dr. Kamaljit Browning AST [Catalytic activity/Vol] 26 U/L Normal 15-37 [facility] Comment on above: Performed By: #### A 1C #### [facility] [address] [place] [address] Dr. Kamaljit Browning Bilirubin [Mass/Vol] 0.5 mg/dL Normal 0.2-1.0 [facility] Comment on above: Performed By: #### A 1C #### [facility] [address] [place] [address] Dr. Kamaljit Browning Calcium [Mass/Vol] 8.6 mg/dL Normal 8.5-10.1 [facility] Comment on above: Performed By: #### A 1C #### [facility] [address] [place] [address] Dr. Kamaljit Browning Chloride [Moles/Vol] 106 mmol/L Normal 98-107 [facility] Comment on above: Performed By: #### A 1C #### [facility] [address] [place] [address] Dr. Kamaljit Browning CO2 [Moles/Vol] 24.0 mmol/L Normal 21.0-32.0 [facility] Comment on above: Performed By: #### A 1C #### [facility] [address] [place] [address] Dr. Kamaljit Browning Creatinine [Mass/Vol] 1.02 mg/dL Normal 0.70-1.30 [facility] Comment on above: Performed By: #### A 1C #### [facility] [address] [address] [address] Kamaljit Browning EGFR-AF [facility]CIAN >60 Normal >=60 [facility] Comment on above: Performed By: #### A 1C #### [facility] [address] [address] [address] Kamaljit Browning EGFR-NON AF [facility] >60 Normal >=60 [facility] Comment on above: Performed By: #### A 1C #### [facility] [address] [address] [address] Kamaljit Browning Globulin (S) [Mass/Vol] 3.5 g/dL Normal [facility] Comment on above: Performed By: #### A 1C #### [facility] [address] [place] [address] Dr. Kamaljit Browning Glucose [Mass/Vol] 138 mg/dL Critically high 74-106 [facility] Comment on above: Performed By: #### A 1C #### [facility] [address] [address] [address] Kamaljit Browning Potassium [Moles/Vol] 4.0 mmol/L Normal 3.5-5.1 [facility] Comment on above: Performed By: #### A 1C #### [facility] [address] [address] [address] Kamaljit Browning Protein [Mass/Vol] 7.8 g/dL Normal 6.4-8.2 [facility] Comment on above: Performed By: #### A 1C #### [facility] [address] [address] [address] Kamaljit Browning Sodium [Moles/Vol] 141 mmol/L Normal 136-145 [facility] Comment on above: Performed By: #### A 1C #### [facility] [address] [place] [address] Dr. Kamaljit Browning Urea nitrogen [Mass/Vol] 13.0 mg/dL Normal 7.0-18.0 [facility] Comment on above: Performed By: #### A 1C #### [facility] [address] [place], [place] [address] Dr. Kamaljit Browning Urea nitrogen/Creatinine [Mass ratio] 12.7 mg/mg Normal [facility] Comment on above: Performed By: #### A 1C #### [facility] [address] [place], [place] [address] Dr. Kamaljit Browning TROPONIN, HIGH SENSITIVITYon 12-17-2021 HSTROP 11.1 pg/mL Normal 4.0-76.1 [facility] Comment on above: Result Comment: CUT- OFF POINTS HAVE BEEN ESTABLISHED BASED ON THE FOURTH UNIVERSAL DEFINITIONS OF MYOCARDIAL INFARCTION. THE UPPER REFERENCE LIMIT (URL) OF TROPONIN, DEFINED THE 99TH PERCENTILE OF cTnI DISTRIBUTION IN A REFERENCE POPULATION, HAS BEEN CONFIRMED THE DECISION THRESHOLD FOR [place] DIAGNOSIS. Performed By: #### A 1C #### [facility] [address] [place], [place] [address] Dr. Kamaljit Browning Vital Signs Date Time Vital Sign Value Performing Clinician Facility 09-15-2024 08:20-0400 Body height 167.6 cm Nayana Prakash [employer] Work Phone: [facility] 09-15-2024 08:20-0400 Body mass index (BMI) [Ratio] 34.06 kg/m2 Nayana Aaronr [employer] Work Phone: [facility] 09-15-2024 08:20-0400 Body weight 95.71 kg Nayana Prakash [employer] Work Phone: [facility] 09-15-2024 08:20-0400 Diastolic blood pressure 70 mm[Hg] Nayana Mehtamor [employer] Work Phone: [facility] 09-15-2024 08:20-0400 Heart rate 67 /min Nayana Prakash [employer] Work Phone: [facility] 09-15-2024 08:20-0400 Systolic blood pressure 112 mm[Hg] Nayana Mehtamor [employer] Work Phone: [facility] 06-15-2024 16:21-0500 Body height 167.6 cm Nayana Gillmor [employer] Work Phone: [facility] 06-15-2024 16:21-0500 Body mass index (BMI) [Ratio] 33.89 kg/m2 Nayana Aaronr [employer] Work Phone: [facility] 06-15-2024 16:21-0500 Body weight 95.25 kg Nayana Aaronr [employer] Work Phone: [facility] 06-15-2024 16:21-0500 Diastolic blood pressure 65 mm[Hg] Nayana Aaronr [employer] Work Phone: [facility] 06-15-2024 16:21-0500 Heart rate 55 /min Nayana Aaronr [employer] Work Phone: [facility] 06-15-2024 16:21-0500 Systolic blood pressure 138 mm[Hg] Nayana Aaronr [employer] Work Phone: [facility] 04-18-2024 12:59-0400 Body height 167.6 cm Gerardo Rickie DO Work Phone: [facility] 04-18-2024 12:59-0400 Body mass index (BMI) [Ratio] 35.22 kg/m2 Gerardo Rickie DO Work Phone: [facility] 04-18-2024 12:59-0400 Body weight 98.97 kg Gerardo Rickie DO Work Phone: [facility] 04-18-2024 12:59-0400 Diastolic blood pressure 68 mm[Hg] Gerardo Rickie DO Work Phone: [facility] 04-18-2024 12:59-0400 Heart rate 85 /min Gerardo Rickie DO Work Phone: [facility] 04-18-2024 12:59-0400 SaO2% (BldA) [Mass fraction] 97 % Gerardo Rickie DO Work Phone: [facility] 04-18-2024 12:59-0400 Systolic blood pressure 138 mm[Hg] Gerardo Rickie DO Work Phone: [facility] 03-18-2023 14:09-0400 Blood Pressure Location [facility] 03-18-2023 14:09-0400 Diastolic blood pressure 86 mm[Hg] [facility] 03-18-2023 14:09-0400 Heart rate 70 /min [facility] 03-18-2023 14:09-0400 Respiratory rate 16 /min [facility] 03-18-2023 14:09-0400 Systolic blood pressure 130 mm[Hg] [facility] [place] Encounters Encounter Date Encounter Type Care Provider Facility Start: 09-15-2024 End: 09-15-2024 Bamboo flowsheet Nayana Prakash [employer] Work Phone: [facility] Start: 09-15-2024 End: 09-15-2024 Bamboo flowsheet Nayana Prakash [employer] Work Phone: [facility] Start: 09-15-2024 End: 09-15-2024 Office outpatient visit 25 minutes Nayana Prakash [employer] Work Phone: [facility] Comment on above: Abnormal CT of the h ead (Primary Dx); Postural dizziness with presyncope; Abnormal MRI of head Start: 09-15-2024 End: 09-15-2024 ambulatory NAYANA PRAKASH Not Available Start: 08-17-2024 End: 08-17-2024 Clinisync Result Encounter Nayana Prakash [employer] Work Phone: [facility] External Department Unsolicited Start: 08-17-2024 End: 08-17-2024 Clinisync Result Encounter Nayana Prakash [employer] Work Phone: [facility] External Department Unsolicited Start: 08-16-2024 End: 08-16-2024 Clinisync Result Encounter Nayana Prakash [employer] Work Phone: [facility] External Department Unsolicited Start: 08-16-2024 End: 08-16-2024 Clinisync Result Encounter Nayana Prakash [employer] Work Phone: [facility] External Department Unsolicited Start: 06-15-2024 End: 06-15-2024 Office outpatient visit 25 minutes Nayana Prakash [employer] Work Phone: [facility] [address] Comment on above: Abnormal CT of the h ead (Primary Dx); Postural dizziness with presyncope; Balance disorder; Numbness and tingling; Abnormal MRI of head Start: 06-15-2024 End: 06-15-2024 ambulatory NAYANA PRAKASH Not Available Start: 06-15-2024 End: 06-15-2024 Bamboo flowsheet Nayana Prakash [employer] Work Phone: [facility] Start: 06-15-2024 End: 06-15-2024 Bamboo flowsheet Nayana Prakash [employer] Work Phone: [facility] [address] Start: 05-30-2024 End: 05-30-2024 ambulatory [facility] Start: 05-16-2024 End: 05-16-2024 Bamboo flowsheet [...] 04-27-2024 End: 04-27-2024 Clinisync Result Encounter Gerardo Petersen DO Work Phone: [facility] External Department Unsolicited Start: 04-27-2024 End: 10-30-2024 Clinisync Result Encounter Gerardo Petersen DO Work Phone: [facility] External Department Unsolicited Start: 04-18-2024 End: 04-18-2024 Bamboo flowsheet Gerardo Petersen DO Work Phone: [facility] Start: 04-18-2024 End: 04-18-2024 Bamboo flowsheet Gerardo Petersen DO Work Phone: [facility] Start: 04-18-2024 End: 04-18-2024 Office outpatient new 45 minutes Gerardo Petersen DO Work Phone: [facility] Comment on above: Abnormal CT of the h ead (Primary Dx); Postural dizziness with presyncope; Cerebral hypoperfusion; Balance disorder; Numbness and tingling Start: 04-18-2024 End: 04-18-2024 ambulatory GERARDO PETERSEN Not Available Start: 03-01-2024 End: 03-01-2024 ambulatory [facility] Start: 02-01-2024 End: 02-01-2024 ambulatory [facility] Start: 04-08-2023 End: 04-09-2023 ambulatory Leo TATE Facility:CD:[id number] Start: 03-18-2023 End: 03-19-2023 ambulatory Leo TATE Facility:[facility] Start: 03-18-2023 End: 03-18-2023 Patient encounter procedure [facility]ula [facility] Start: 03-06-2023 ambulatory [facility] Facility:[facility] Start: 03-05-2023 ambulatory [facility] Facility:[facility] Start: 11-14-2022 End: 11-15-[address] PETRA WOOTEN . Facility: Start: 10-27-2022 End: 11-26-[address] PETRA [...] 05-29-2022 End: 06-29-2022 ambulatory SHAIKH Juan Luis ROBETRSSowmya Facility:[facility] Start: 04-29-2022 End: 05-28-2022 ambulatory SHAIKH Juan Luis ANTONIETTASHIRLEY Facility: Start: 03-30-2022 End: 04-28-2022 ambulatory SHAIKH Juan Luis HENDERSON Facility:[facility] Start: 03-12-2022 End: 03-13-[address] PETRA WOOTEN . Facility:[facility] Start: 02-27-2022 End: 03-29-2022 ambulatory SHAIKH Juan Luis ROBERTSSowmya Facility:[facility] Start: 01-27-2022 End: 02-26-2022 ambulatory Juan Luis MANESHIRLEY Facility:[facility] Start: 12-27-2021 End: 01-24-[address] PETRA WOOTEN . Facility: Start: 12-25-2021 End: 12-26-[address] PETRA WOOTEN . Facility: Start: 12-17-2021 End: 12-18-2021 Evaluation and management of inpatient DR PETRA WOOTEN . Facility: Procedures Date Procedure Procedure Detail Performing Clinician Start: 08-17-2024 MRI HEAD/BRAIN WO/W CONTR Nayana Prakash [employer] Work Phone: Start: 08-16-2024 ALL BUN Nayana dennis [employer] Work Phone: Start: 08-16-2024 [facility] CREATININE Nayana valdes [employer] Work Phone: Start: 05-16-2024 End: 05-16-2024 Needle emg ea extremty w/paraspinl area complete Gerardo Petersen DO Work Phone: Start: 04-27-2024 ALL BUN Gerardo Ori carmichael DO Work Phone: Start: 04-27-2024 [facility] CREATININE Gerardo morrison DO Work Phone: Start: 11-14-[address] LIZZIE WOOTEN . Comment on above: Performed By: #### C MP, BNP #### [facility] [address] [place], [place] [address] Dr. 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 Plan of Treatment Date Care Activity Detail Author Start: 08-01-2025 End: 08-01-2025 Patient encounter procedure 08/01/2025 8:00 AM EST Office Visit [facility] [address] [place], [place] [address] [address] Rickie Gerardo, DO [address] [place] [address] J[facility]AN VILLASE[facility] Start: 09-15-2024 End: 09-15-2024 [facility] Comment on above: Arrived Start: 07-30-2024 End: 06-17-2025 MR Brain WO and W contrast IV MR brain w and wo contrast routine Imaging Routine Abnormal CT of the head Abnormal MRI of head Expected: 07/30/2024 (Approximate), Expires: 06/17/2025 [facility] [employer] Work Phone: Comment on above: Expected: 07/30/2024 (Approximate), Expires: 06/17/2025 Start: 06-17-2024 End: 06-17-2025 Creatinine [Mass/volume] in Serum or Plasma Creatinine, Serum Lab Routine Abnormal CT of the head Abnormal MRI of head Expected: 06/17/2024 (Approximate), Expires: 06/17/2025 [facility] [employer] Comment on above: Expected: 06/17/2024 (Approximate), Expires: 06/17/2025 Start: 06-17-2024 End: 06-17-2025 Urea nitrogen [Mass/volume] in Serum or Plasma BUN Lab Routine Abnormal CT of the head Abnormal MRI of head Expected: 06/17/2024 (Approximate), Expires: 06/17/2025 [facility] Comment on above: Expected: 06/17/2024 (Approximate), Expires: 06/17/2025 Start: 06-15-2024 End: 06-15-2024 Patient encounter procedure [facility] [place] [facility] Comment on above: Arrived Start: 05-16-2024 End: 05-16-2024 Patient encounter procedure 05/16/2024 9:00 AM EST Procedure Visit [facility] [address] [facility] [address] [place] [id number] Gerardo Petersen DO [address] [place] [address] [facility] Start: 04-18-2024 End: 04-18-2025 EMG 2 Extremities EMG 2 Extremities Neurology Routine Balance disorder Numbness and tingling Expected: 04/18/2024 (Approximate), Expires: 04/18/2025 [facility] Comment on above: Expected: 04/18/2024 (Approximate), Expires: 04/18/2025 Start: 04-18-2024 End: 04-18-2025 MR Brain WO and W contrast IV MR brain w and wo contrast routine Imaging Routine Abnormal CT of the head Balance disorder Expected: 04/18/2024, Expires: 04/18/2025 [facility] Work Phone: Comment on above: Expected: 04/18/2024 , Expires: 04/18/2025 Start: 04-18-2024 End: 04-18-2025 NVC 9-10 Nerves NVC 9-10 Nerves Neurology Routine Balance disorder Numbness and tingling Expected: 04/18/2024 (Approximate), Expires: 04/18/2025 [facility] Comment on above: Expected: 04/18/2024 (Approximate), Expires: 04/18/2025 Start: 04-18-2024 End: 04-18-2024 Patient encounter procedure 04/18/2024 1:00 PM EDT Office Visit [facility] [address] [place] [address] Gerardo Petersen DO [address] [place] [address] [address] [facility] [address] Comment on above: Arrived Start: 1950 Screening for malign ant neoplasm of colon [facility] Immunizations Immunization Date Immunization Notes Care Provider Fa cility 04-03-2022 SARS-CoV-2 (COVID-19 ) [id number] Leo NILL [facility] 12-02-2021 SARS-CoV-2 mRNA (yefrvctrgfo-efgz-syfkn se) vaccine Leo NILL [facility] 03-23-2021 SARS-CoV-2 (COVID-19 ) mRNA BNT-162b2 vax Leo NILL [facility] Comment on above: Result Comment: 2022: [id number] 08-30-2020 SARS-CoV-2 (COVID-19 ) mRNA BNT-162b2 vax Leo NILL [facility] Comment on above: Result Comment: 2022: [id number] 08-09-2020 SARS-CoV-2 (COVID-19 ) mRNA BNT-162b2 vax Leo NILL [facility] Comment on above: Result Comment: 2022: [id number] Payers Date Payer Category Payer Private Health Insurance [id number] 2016 Medicare MEDICARE [id number] 2016 Unknown [id number] 1959 Medicare [id number] 1959 Unknown [id number] 1959 Unknown [id number] 1952 Unknown [id number] 2.16.840.1.984795.3.579.2. 59 1952 Unknown [id number] 2.16.840.1.000482.3.579.2. 593 1952 Unknown [id number] 2.16.840.1.725601.3.579.2. 59 1952 Unknown [id number] 2.16.840.1.537836.3.579.2. 593 1952 Unknown [id number] 2.16.840.1.947297.3.579.2. 593 1952 Unknown [id number] 2.16.840.1.106294.3.579.2. 593 1952 Unknown [id number] 2.16.840.1.937157.3.579.2. 593 1952 Unknown [id number] 2.16.840.1.083769.3.579.2. 593 1952 Unknown [id number] 2.16.840.1.215874.3.579.2. 593 1952 Unknown [id number] 2.16.840.1.826261.3.579.2. 593 1952 Unknown [id number] 2.16.840.1.055724.3.579.2. 59 1952 Unknown [id number] 2.16.840.1.254025.3.579.2. 593 1952 Unknown [id number] 2.16.840.1.343944.3.579.2. 593 1952 Unknown [id number] 2.16.840.1.551279.3.579.2. 593 1952 Unknown [id number] 2.16.840.1.479964.3.579.2. 593 1952 Unknown [id number] 2.16.840.1.317116.3.579.2. 593 1952 Unknown [id number] 2.16.840.1.121043.3.579.2. 593 1952 Unknown [id number] 2.16.840.1.822511.3.579.2. 727 1952 Unknown [id number] 2.16.840.1.267728.3.579.2. 727 1952 Unknown [id number] 2.16.840.1.565262.3.579.2. 727 1952 Unknown [id number] 2.16.840.1.378000.3.579.2. 1259 1952 Unknown [id number] 2.16.840.1.458030.3.579.2. 1259 1952 Unknown [id number] 2.16.840.1.410965.3.579.2. 1259 1952 Unknown [id number] 2.16.840.1.719234.3.579.2. 1259 Social History Date Type Detail Facility Start: 03-18-2023 End: 09-15-2024 Tobacco smoking status Ex-smoker (finding) [facility] [place] Tobacco smoking status Never [facility] [place] Start: 04-18-2024 End: 09-15-2024 Sex Assigned At Male Karl Saul [facility] Tobacco smoking stat us NHIS Tobacco smoking consumption unknown [facility] Start: 1950 Sex assigned at Male [facility] Start: 04-11-2024 Gender identity Identifies as male gender (finding) [facility] Start: 07-30-1967 End: 09-03-2011 History of tobacco use Current smoker [facility] Start: 07-30-1967 End: 09-03-2011 History of tobacco use Cigarette Smoker [facility] Start: 04-18-2024 End: 09-15-2024 Tobacco use and exposure Smokeless tobacco non-user [facility] Start: 04-18-2024 End: 09-15-2024 History of Social function [facility] Start: 06-15-2024 End: 09-15-2024 Alcoholic beverage intake Ex-drinker (finding) [facility] Functional Status Date Assessment Result Facility 03-18-2023 Functional Status N/A [facility] [place] michael Villaseñor Clinical Notes 03-18-2023 to 09-15-2024 Nayana Prakash, LEDGE MAN - 09/15/2024 8:20 AM Xuan Colón, ARRT - 05/16/2024 9:00 AM Korin Petersen DO - 04/18/2024 1:00 PM EDT Note Date & Type Note Facility 09-15-2024 History of Present illness Narrative Images from the original note were not included. Chief Complaint Patient presents with Syncope Patient is here today for follow-up of syncope. I am following the plan of care established by the physician who is present in the office today. Lillie Salazar states he is doing well. He denies any further dizzy spells since his carotid surgery. He denies any other concerns today. Past Medical History: Diagnosis Date COPD (chronic obstructive pulmonary disease) (CMS/HCC) Diabetes mellitus (CMS/HCC) Hypertension (CMS/HCC) Sleep apnea Past Surgical History: Procedure Laterality Date AORTIC VALVE REPLACEMENT CAROTID ARTERY ANGIOPLASTY Family History Problem Relation Name Age of Onset Alcohol abuse Other Diabetes Other Hyperlipidemia Other Hypertension Other Social History Tobacco Use Smoking status: Former Current packs/day: 0.00 Average packs/day: 3.0 packs/day for 84.1 years (252.3 ttl pk-yrs) Types: Cigarettes Start date: 07/30/1967 Quit date: 09/03/2011 Years since quittin.0 Smokeless tobacco: Never Substance Use Topics Alcohol use: Not Currently Allergies: Patient has no known allergies. General: [...] Neurologic: No new headaches or dizziness Vitals: 09/15/24 0820 BP: 112/70 Pulse: 67 Body mass index is 34.06 kg/m . weight: 211 lb Neurologic exam: General: Normal body habitus, cooperative, [...] of the head Postural dizziness with presyncope Abnormal MRI of head 74 year old male with events of presyncope. He had not really had any true syncopal events. He felt more lightheaded and off balance. This occurred only with standing. He did have an event monitor and the times it was triggered the majority he had some mild bradycardia into the mid 50s. He did then have a left carotid endartectomy on 05/05/2024 and this has completely resolved and continues without any further episodes. He had a CTA of the head and neck that did not show any major occlusions other than retrograde flow on his carotid ultrasound in the right vertebral. . He needs to continue to increase drink water. He has done very well with cutting down on his excessive caffeine intake of coffee and pepsi. He states he had lost 10 pounds, gained one between visits. He is not exercising and needs to engage in some regular exercise. He now has clearance from cardiology to do so. Patient is on multiple cardiac medications including Coreg Catapres Cardura that could also slow the dilation and constriction of his vessels causing some dysautonomia. Patient has signs of some decreased sensation in his feet likely a diabetic neuropathy which also can contribute to dysautonomia. EMG BLE mild left sciatic neuropathy or a mild S1 radiculopathy. He denies any back pain or ever having an injury to his back. We will monitor. . He has a mechanical heart valve and is on Coumadin. He is also on Plavix. He was able to have his MRI at [facility]. . A bigger concern and likely the main reason he was sent here is that his CT of the head when he had the CTA showed a large area of abnormality in the left basal ganglion that is 6.4 x for x 4.6 cm extending from the base of the brain to above the lateral ventricle. Etiology as this is unclear, there are vessels that coursed through this area suggesting it is not a mass however there is some mass effect on the lateral ventricle and sylvian fissure. 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 . 08/16/2024 Repeat MRI w and w/o shira Revealed a similar multi loculated cystic structure left subinsular region extending into the left globus pallidus, putamen and coronary. This is unchanged compared to the prior exam measures the same 6.4 x 3.4 by 4.7 cm in greatest axial dimension given the complex nature as well as surrounding gliosis and encephalomalacia this most likely represents sequela of remote area of ischemia as opposed to a benign neuroglial. Cyst. Given the lack of accompanying enhancement, malignancy is felt to be on likely. No acute intracranial pathology mild age-related cortical atrophy. Punctate foci of susceptibility are redemonstrated these are nonspecific but may represent small cavernous malformations or remote microhemorrahages. We will re-image in - to assess for any interval change. . . . Plan Reorder MRI of the brain with and without gadolinium in 9-12 months, he may call in and we can order prior to next visit and we will review when he is here Reviewed MRI brain w and w/o shira in 3 months to assess stability of neuroglial cyst at [facility] Continue with Increase of water intake, no pop and limited coffee /caffeine intake Continue with signal operator He was counseled he needs to take [...] plan, and return instructions Return to clinic: 9-12 months documented in this encounter [facility] 05-30-2024 Note [facility] Cardiology Clinic Note Chief Complaint: Patient [...] flow; peak velocity (more content not included)... [facility] 05-16-2024 History of Present illness Narrative Images from the original note were not included. Reason for Appointment: EMG Patient: Martin West : 1950 EMG Computer: Urlist Referring Physician: Dr. Gerardo Petersen EMG: BLE histotechnician: Haim Colón RT(R) Office Location: [place] Reason for EMG: c/o numbness in bilateral feet. Pt states PreDM. Taking Warfarin. Comments: Procedure was explained to the patient who expressed understanding. Patient appeared to have tolerated the test well despite some discomfort due to the nature of the test. documented in this encounter [facility] 04-18-2024 History of Present illness Narrative Images [...] is going to be having surgery at [facility] in [place] for a vein that is 100% occluded on the left in his neck. Past Medical History: Diagnosis Date COPD (chronic obstructive pulmonary disease) ([facility]) Diabetes mellitus ([facility]) Past Surgical History: Procedure Laterality Date [...] We will leave the bradycardia to his signal operator We will try to get more information [...] clinic: 3 weeks documented in this encounter [facility] 03-01-2024 Note [facility] Cardiology Clinic Note Chief Complaint: Patient [...] Conclusion: 1. L (more content not included)... [facility] 02-01-2024 Note car [facility] 02-01-2024 Note [facility] Cardiology Clinic Note Chief Complaint: Patient [...] - MILD I25.10: Atherosclerotic heart disease of [place] coronary artery without angina pectoris 3. Essential hypertension - Established (stable) I10: Essential (primary) hypertensio (more content not included)... [facility] 04-01-2023 Note [id number] Kiana from [facility] management called stating he is ok to hold coumadin 4 days before procedure and will not need bridged, she will call pt tp inform him [facility] Comment on above: Result Comment: Elec [...] held; Unasyn preop for SBE prophylaxis. 2. long-term current use of anticoagulant (Z79.01: long term care pharmacist (current) use of anticoagulants) see # 1 [...] ta (more content not included)... [facility] Comment on above: Result Comment: Elec tronically Signed By: BEBETO RODRIGUES, Leo Monae\Date and Time Signed: 03/18/23 14:47 EDT Evaluation + Plan note No data available for this section General [facility] [place] Evaluation note Diagnosis Abnormal CT of the head- Primary Nonspecific (abnormal) findings on radiological and other examination of skull and head Postural dizziness with presyncope Cerebral hypoperfusion Balance disorder Numbness and tingling Disturbance of skin sensation documented in this encounter [facility] HealthcareEvaluation note* Diagnosis Balance disorder Numbness and tingling Disturbance of skin sensation documented in this encounter [facility] Healthcare[facility] note* Diagnosis Abnormal CT of the head- Primary Nonspecific (abnormal) findings on radiological and other examination of skull and head Postural dizziness with presyncope Balance disorder Numbness and tingling Disturbance of skin sensation Abnormal MRI of head Nonspecific (abnormal) findings on radiological and other examination of skull and head documented in this encounter [facility] note* Diagnosis Abnormal CT of the head- Primary Nonspecific (abnormal) findings on radiological and other examination of skull and head Postural dizziness with presyncope Abnormal MRI of head Nonspecific (abnormal) findings on radiological and other examination of skull and head documented in this encounter [facility] Discharge instructions No data available for this section [facility] Surgery [place] Progress note No data available for this section [facility] [place] Summary Purpose Family History No Family History [...] section and content) DATE CREATED AUTHOR 12/05/2022 [facility] DATE CREATED AUTHOR AUTHOR'S ORGANIZ ATION 04/28/2023 [facility] DATE CREATED AUTHOR AUTHOR'S ORGANIZ ATION 05/31/2024 [facility] DATE CREATED AUTHOR AUTHOR'S ORGANIZ ATION 09/17/2024 [facility] dical Specialists EPIC Patient Care team informatio n (unrecognized section and content) Mysql Database Developer Relationship Specialty Start Date End Date Petra Wooten MD [address] [place] [address] PCP - General Family Medicine 04/18/24 Alayna Kim MD [address] [place] [address] Referring Physician Cardiology 04/18/24 Mysql Database Developer Relationship Specialty Start Date End Date Petra Wooten MD [address] [place] [address] [phone] PCP - General Family Medicine 04/18/24 Alayna Kim MD [address] [place] [address] Referring Physician Cardiology 04/18/24 Mysql Database Developer Relationship Specialty Start Date End Date Petra Wooten MD [address] [place] [address] [phone] PCP - General Family Medicine 04/18/24 Alayna Kim MD [address] [place] [address] Referring Physician Cardiology 04/18/24 Mysql Database Developer Relationship Specialty Start Date End Date Petra Wooten MD [address] [place] [address] [phone] PCP - General Family Medicine 04/18/24 Alayna Kim MD [address] [place] [address] Referring Physician Cardiology 04/18/24 Mysql Database Developer Relationship Specialty Start Date End Date Petra Wooten MD [address] [place] [address] PCP - General Family Medicine 04/18/24 Alayna Kim MD [address] [place] [address] Referring Physician Cardiology 04/18/24 Gerardo Petersen DO [address] [place] [address] Referring Physician Neurology 06/15/24 Mysql Database Developer Relationship Specialty Start Date End Date Petra Wooten MD [address] [place] [address] PCP - General Family Medicine 04/18/24 Alayna Kim MD [address] [place] [address] Referring Physician Cardiology 04/18/24 Gerardo Petersen DO [address] [place] [address] Referring Physician Neurology 06/15/24 Mysql Database Developer Relationship Specialty Start Date End Date Petra Wooten MD [address] [place] [address] PCP - General Family Medicine 04/18/24 Alayna Kim MD [address] [place] [address] Referring Physician Cardiology 04/18/24 Gerardo Petersen DO [address] [place] [address] Referring Physician Neurology 06/15/24 Mysql Database Developer Relationship Specialty Start Date End Date Petra Wooten MD [address] [place] [address] PCP - General Family Medicine 04/18/24 Alayna Kim MD [address] [facility] [place] [address] Referring Physician Cardiology 04/18/24 Gerardo Petersen DO [address] [place] [address] Referring Physician Neurology 06/15/24 Mysql Database Developer Relationship Specialty Start Date End Date Petra Wooten MD [address] [place] [facility] [place] [phone] PCP - General Family Medicine 04/18/24 Alayna Kim MD [address] [facility] [place] [address] Referring Physician Cardiology 04/18/24 Gerardo Petersen DO [address] [place] [address] Referring Physician Neurology 06/15/24 Nayana Prakash NP [address] [place] [address] Nurse Practitioner Neurology 09/15/24 Mysql Database Developer Relationship Specialty Start Date End Date Petra Wooten MD [address] [place] [facility] [place] [address] PCP - General Family Medicine 04/18/24 Alayna Kim MD [address] [facility] [place] [address] Referring Physician Cardiology 04/18/24 Gerardo Petersen DO [address] [place] [address] Referring Physician Neurology 06/15/24 Nayana Prakash NP [address] [place] Nurse Practitioner Neurology 09/15/24 Reason for Visit (unrecogniz ed section and content) Reason Comments Syncope Reason Comments Syncope FOR RECORDS PERTAINING TO [...] BE BASED ON THE PRIMARY CLINICAL RECORDS. [facility] [employer] provides no warranty or guarantee of the accuracy or completeness of information in this document.
[2025-01-16 08:09] LABS: Hematocrit 40.0 % (42.0-54.0); Hemoglobin 13.4 g/dL (14.0-18.0); Immature Granulocytes Abs Auto 0.01 10^3/uL (0.00-0.03); Immature Granulocytes Pct Auto 0.2 % (0.0-0.5); Lymphocytes Absolute Auto 0.9 10^3/uL (1.2-3.8); Mean Corpuscular HGB Conc 33.5 g/dL (29.9-35.2); Mean Corpuscular Hemoglobin 31.1 pg (25.9-34.0); Mean Corpuscular Volume 92.8 fL (80.0-94.0); Platelet Count 101 10^3/uL (150-450); Red Blood Count 4.31 10^6/uL (4.70-6.10); White Blood Count 5.4 10^3/uL (4.0-11.0)
[2025-01-16 08:40] LABS: Alanine Aminotransferase 33 U/L (16-63); Albumin Globulin Ratio 1.2; Albumin Level 4.0 g/dL (3.4-5.0); Alkaline Phosphatase 86 U/L (46-116); Anion Gap 14.0; Aspartate Amino Transferase 29 U/L (15-37); Blood Urea Nitrogen 19.0 mg/dL (7.0-18.0); Calcium 9.1 mg/dL (8.5-10.1); Carbon Dioxide 29.9 mmol/L (21.0-32.0); Chloride 105 mmol/L (98-107); Cholesterol 142 mg/dL (<=200); Estimated GFR (African America >60 (>=60 mL/min/1.73m^2); Estimated GFR (Non-African Ame 55 (>=60 mL/min/1.73m^2); Free T3 2.16 pg/mL (2.18-3.98); Globulin 3.3 g/dL; Glucose 112 mg/dL (74-106); HDL Cholesterol 52 mg/dL (40-60); Potassium 3.9 mmol/L (3.5-5.1); Sodium 145 mmol/L (136-145); Thyroid Stimulating Hormone 1.743 uIU/mL (0.358-3.740); Total Protein 7.3 g/dL (6.4-8.2); Triglycerides 131 mg/dL (<=150); VLDL CHOLESTEROL 26.2 mg/dL
== END 2025-01-16 07:55 | disposition home or self-care (01) ==
LOC: LAB 07:55
PROVIDERS: PCP Family Medicine; Visit Provider Family Medicine
DX: E78.5 Hyperlipidemia, unspecified (principal); I10 Essential (primary) hypertension; E11.9 Type 2 diabetes mellitus without complications; R55 Syncope and collapse; R19.5 Other fecal abnormalities
CPT/HCPCS: 36415; 80053; 80061; 83036; 84436; 84443; 84481; 85025; G0103

== ENCOUNTER 2025-01-27 00:22 | Outpatient (RCR) | payer MEDICARE, SELFPAY | END 2025-02-23 12:46 | disposition home or self-care (01) | LOC: MM 00:22 | PROVIDERS: PCP Family Medicine; Visit Provider Internal Medicine | DX: Z51.81 Encounter for therapeutic drug level monitoring (principal); Z79.01 Long term (current) use of anticoagulants; I48.91 Unspecified atrial fibrillation | CPT/HCPCS: 85610; G0463 ==

== ENCOUNTER 2025-02-27 02:57 | Outpatient (RCR) | payer MEDICARE, SELFPAY | END 2025-03-28 15:35 | disposition home or self-care (01) | LOC: MM 02:57 | PROVIDERS: PCP Family Medicine; Visit Provider Internal Medicine | DX: Z51.81 Encounter for therapeutic drug level monitoring (principal); Z79.01 Long term (current) use of anticoagulants; I48.91 Unspecified atrial fibrillation | CPT/HCPCS: 85610; G0463 ==

== ENCOUNTER 2025-03-29 04:36 | Outpatient (RCR) | payer MEDICARE, SELFPAY | END 2025-04-28 23:59 | disposition home or self-care (01) | LOC: MM 04:36 | PROVIDERS: PCP Family Medicine; Visit Provider Internal Medicine | DX: Z51.81 Encounter for therapeutic drug level monitoring (principal); Z79.01 Long term (current) use of anticoagulants | CPT/HCPCS: 85610; G0463 ==

== ENCOUNTER 2025-04-29 | Outpatient (RCR) | payer MEDICARE, SELFPAY | END 2025-05-28 23:59 | disposition home or self-care (01) | LOC: MM | PROVIDERS: PCP Family Medicine; Visit Provider Family Medicine | DX: Z51.81 Encounter for therapeutic drug level monitoring (principal); Z79.01 Long term (current) use of anticoagulants; I48.91 Unspecified atrial fibrillation | CPT/HCPCS: 85610; G0463 ==

== ENCOUNTER 2025-05-22 10:37 | Outpatient (OUT) | payer MEDICARE, SELFPAY ==
--- OUTSIDE RECORDS SUMMARY | 2025-05-22 10:41 | XMS_ITS | Clinical Summary ---
Author Organization [email or web address] tem Address [facility] [id number] [address] [place] [address] Care Team Providers Care Warehouse Consultant Name Role Phone Abhishek Wooten MD Primary Care Provider [phone] Allergies No known active allergies Medications MedicationSigDispense QuantityRefillsLast FilledStart DateEnd DateStatus carvediloL (COREG) 25 mg tablet Take 1 tablet (25 mg total) by mouth 3 (three) times a day.04/06/2024ctive citalopram (CeleXA) 20 mg tablet Take 1 tablet (20 mg total) by mouth in the morning.03/25/2024ctive cloNIDine (CATAPRES) 0.1 mg tablet Take 1 tablet (0.1 mg total) by mouth in the morning and 1 tablet (0.1 mg total) before bedtime.01/24/2024ctive doxazosin (CARDURA) 8 mg tablet Take 1 tablet (8 mg total) by mouth nightly.03/01/2024ctive gemfibroziL (LOPID) 600 mg tablet Take 1 tablet (600 mg total) by mouth in the morning and 1 tablet (600 mg total) before bedtime.04/02/2024ctive glimepiride (AMARYL) 1 mg tablet Take 1 tablet (1 mg total) by mouth every morning before breakfast.03/16/2024 Active pantoprazole (PROTONIX) 40 mg EC tablet Take 1 tablet (40 mg total) by mouth every morning before breakfast.01/24/2024 Active rosuvastatin (CRESTOR) 40 mg tablet Take 1 tablet (40 mg total) by mouth in the morning.02/01/2024ctive lisinopriL (PRINIVIL,ZESTRIL) 40 mg tablet Take 1 tablet (40 mg total) by mouth in the morning.02/26/2024ctive warfarin (COUMADIN) 4 mg tablet Take 1 tablet (4 mg total) by mouth in the evening. 4 mg Thursday, Thursday, Thursday, 2mg other days.01/24/2024ctive psyllium (METAMUCIL) 0.52 gram capsule Take 1 capsule (0.52 g total) by mouth in the morning.Active NON FORMULARY Med Name: iron 9mg twice a dayActive MULTIVITAMIN, STRESS FORMULA ORAL Take 1 tablet by mouth in the morning.Active chlorthalidone (HYGROTON) 25 mg tablet Take 1 tablet (25 mg total) by mouth every other day.Active clopidogreL (PLAVIX) 75 mg tablet Take 1 tablet (75 mg total) by mouth in the morning. 30 tablet ctive acetaminophen (TYLENOL EXTRA STRENGTH) 500 mg tablet Take 1 tablet (500 mg total) by mouth every 6 (six) hours as needed for pain. 30 tablet 05/08/2024ctive Active Problems ProblemNoted DateDiagnosed DateBilateral carotid artery wnturbdm69/12/2024 Assessment & Plan (06/09/2024 1:50 PM EST): Continue best medical therapy with aspirin statin and surveillance imaging in a year Encounter for therapeutic drug npbxcpdjyl54/18/2024Subclavian steal syndrome 04/07/2024 Assessment & Plan (06/09/2024 1:50 PM EST): Bypass graft is patent and symptoms has resolved. Continue antiplatelets and statin and follow up in a year with surveillance imaging. Continue Plavix warfarin and atorvastatin. Assessment & Plan (04/07/2024 10:50 AM EDT): Discussed with him the finding and the imaging studies both the CTA and the carotid duplex ultrasound. Depending on his symptomatology status I offered him to do right carotid subclavian bypass. Discussed the risk benefits and alternative. He will think about it and give us a call. He may need cardiac risk stratification if he Decides to proceed the procedure with the procedure. Immunizations No known immunizations Family History Medical HistoryRelationNameCommentsAnesthesia problemsNeg Hx Social History Tobacco UseTypesPacks/DayYears UsedDateSmoking Tobacco: FormerCigarettes Smokeless Tobacco: Never Tobacco Cessation:Counseling Given: Not Answered Comments:Smoked for 45yrs, quit 2011 Alcohol UseStandard Drinks/WeekCommentsNot Currently0 (1 standard drink = 0.6 oz pure alcohol)quit 1999[facility] UtilitiesAnswerDate RecordedIn the past 12 months has the electric, gas, oil, or water company threatened to shut off services in your home?No05/06/2024UDIT-CAnswerDate RecordedQ1: How often do you have a drink containing alcohol?Never05/06/2024Q2: How many drinks containing alcohol do you have on a typical day when you are drinking?Patient does not drink05/06/2024Q3: How often do you have six or more drinks on one occasion?Never05/06/2024HQ-2 AnswerDate RecordedTotal Ghqbu82307/06/2023RAPARE - TransportationAnswerDate RecordedIn the past 12 months, has lack of transportation kept you from medical appointments or from getting medications?No05/06/2024In the past 12 months, has lack of transportation kept you from meetings, work, or from getting things needed for daily living?No05/06/2024Housing InstabilityAnswerDate RecordedAre you worried or concerned that in the next two months you may not have stable housing that you own, rent or stay in as a part of a household?No05/06/2024 Hunger ScreeningAnswerDate RecordedWithin the past 12 months we worried whether our food would run out before we got money to buy more.Never True05/12/2024 Within the past 12 months the food we bought just didn't last and we didn't have money to get more.Never True05/12/2024Sex and Gender InformationValueDate RecordedSex Assigned at BirthNot on fileLegal PmnAxze90 3:11 PM EDT Gender IdentityNot on fileSexual OrientationNot on file Last Filed Vital Signs Vital SignReadingTime TakenCommentsBlood Jzpbotpl093/6206/09/2024 10:25 AM EST Znxgx190106/09/2024 10:25 AM SDBRmhapyuflfr07.5 ??C (97.7 ??F)06/09/2024 10:25 AM ESTRespiratory Hbtw000908/10/2023 10:25 AM ESTOxygen Hkotkwmohq89%06/09/2024 10:25 AM ESTInhaled Oxygen Concentration--Vipgtg29.3 kg (210 lb)06/09/2024 10:25 AM KSQLfcwsp541 cm (5' 5.75 )06/09/2024 10:25 AM ESTBody Mass Index34.16108/10/2023 10:25 AM EST Plan of Treatment DateTypeDepartmentCare Team (Latest Contact Info)Gykpkxnlojh01/12/2025 11:00 AM ESTAppointment [facility] [address] [place] [address] Wm Castro MD [address], [address] [address] Health MaintenanceDue DateLast DoneCommentsStatin Use: Dqradakhrscjgn1950 Adult BMI Follow Up Plan01/25/1970DTaP,Tdap and Td Vaccines (1 - Tdap)01/25/1971 Zoster (Shingles) Vaccine (1 of 2)01/25/2002Abdominal Aortic Aneurysm (AAA) Gqxgwk8401/25/2017Fall Risk Szdzfffqw31/30/2017COVID-19 Vaccine ( season)/11/2021, 03/23/2021, 08/30/2020, Additional history exists Influenza Nlcxgdg1502/27/2025Depression Phtwthqqm49/01/2024Tobacco Qezlrzttw90/4Adult BMI Soqzysyzw94/4RSV ( or age 60+ yrs) (1 - 1-dose 75+ series)01/25/2027 Goals GoalPatient Goal TypeAssociated ProblemsRecent ProgressPatient-Stated?Author <enter goal here> Shelly Long LSW Note: Evaluation of progress towards goal: Patient to discharge home with support of spouse. Medical Devices ImplantedTypeAreaManufacturerDevice IdentifierShelf Expiration DateModel / Serial / LotGraft Cv 60cm 7mm Thor 2 Pass Sw [facility] Vlr Clgn [facility] - [id number] - [id number] Implanted:Qty: 1 on 05/05/2024 [facility]raftRight: NeckGETINGE USA SALES INC12/26/[id number] / [id number] / Insurance Advance Directives * Full Code (Latest Code Status on File) Date ActivatedDate XjbfnmjqxfjDxhxihyi08/7/2024 6:22 PM05/08/2024 5:09 PM Care Teams Team MemberRelationshipSpecialtyStart DateEnd Date Abhishek Wooten MD [address] [place] [address] PCP - GeneralFamily Ufygnqmh33/3/24
--- OUTSIDE RECORDS SUMMARY | 2025-05-22 10:41 | XMS_ITS | Clinical Summary ---
Author Organization [facility] Address [address] [place] [address] Care Team Providers Care Cementer Hand Name Role Phone Abhishek Wooten MD Primary Care Provider [phone] Alayna Langley MD Unavailable [phone] Nadege Damian DO Unavailable [phone] Shelly Prakash NP Unavailable [phone] Allergies No known active allergies Medications MedicationSigDispense QuantityRefillsLast FilledStart DateEnd DateStatus carvedilol (Coreg) 25 MG tablet Take 25 mg by mouth in the morning and 25 mg in the evening and 25 mg before bedtime.Active chlorthalidone (Hygroton) 25 MG tablet Take 25 mg by mouth every other day02/01/2024ctive citalopram (CeleXA) 20 MG tablet Take 1 tablet by mouth DailyActive cloNIDine (Catapres) 0.1 MG tablet Take 1 tablet by mouth in the morning and 1 tablet in the evening and 1 tablet before bedtime.Active doxazosin (Cardura) 8 MG tablet Take 1 tablet by mouth DailyActive gemfibrozil (Lopid) 600 MG tablet Take 1 tablet by mouth in the morning and 1 tablet before bedtime.Active glimepiride (Amaryl) 1 MG tablet Take 1 mg by mouth in the morning. Take before meals.04/12/2024ctive lisinopril 40 MG tablet Take 1 tablet by mouth DailyActive pantoprazole (ProtoNix) 40 MG EC tablet Take 1 tablet by mouth DailyActive rosuvastatin (Crestor) 40 MG tablet Take 40 mg by mouth in the morning.02/01/2024ctive warfarin (Coumadin) 4 MG tablet Take 1 tablet by mouth DailyActive clopidogrel (Plavix) 75 MG tablet TAKE 1 TABLET (75 MG TOTAL) BY MOUTH IN THE BGDTMZF0305/08/2024ctive Active Problems ProblemNoted DateDiagnosed DateOSA (obstructive sleep apnea)04/06/2024 Krberffzhdn88/09/2024 Family History Medical HistoryRelationNameCommentsAlcohol abuseOtherDiabetesOtherHyperlipidemia OtherHypertensionOtherRelationNameStatusCommentsOther Social History Tobacco UseTypesPacks/DayYears UsedDateSmoking Tobacco: NwkuvcNcvzyseohr840.1 07/30/1967 - 09/03/2011Smokeless Tobacco: Never Tobacco Cessation:Counseling Given: Not Answered Alcohol UseStandard Drinks/WeekCommentsNot Currently0 (1 standard drink = 0.6 oz pure alcohol)Sex and Gender InformationValueDate RecordedSex Assigned at Male04/11/2024 8:37 AM EDTLegal OynIlsw6609/10/2022 6:40 PM EDTGender IdentityMale 04/11/2024 8:37 AM EDTSexual OrientationNot on file Last Filed Vital Signs Vital SignReadingTime TakenCommentsBlood Kbldpcnp959/70009/15/2024 8:20 AM EDT Zumrc340209/15/2024 8:20 AM EDTTemperature--Respiratory Rate--Oxygen Trlatxkewo74% 04/18/2024 12:59 PM EDTInhaled Oxygen Concentration--Vbuiib50.7 kg (211 lb) 09/15/2024 8:20 AM IKMIotamb483.6 cm (5' 6 )09/15/2024 8:20 AM EDTBody Mass Index34.0609/15/2024 8:20 AM EDT Plan of Treatment Not on file Insurance Care Teams Team MemberRelationshipSpecialtyStart DateEnd Abhishek Wooten MD PCP - GeneralFamily Qamaqcnq32/21/24 Alayna Langley MD [address] [id number] Referring EdgdjpmytPbemdbirfn84/21/24 Nadege Damian DO [address] [place] [address] Referring GvxqchexsGzszgfuvo28/18/24 Shelly Prakash NP [address] [place] [address] Nurse PractitionerNeurology09/15/24
--- OUTSIDE RECORDS SUMMARY | 2025-05-22 10:41 | XMS_ITS | Clinical Summary ---
Author Organization [facility] Address [address] [place] [address] Care Team Providers Care Potato Chip Sorter Name Role Phone Abhishek Wooten MD Primary Care Provider [phone] Allergies No known active allergies Medications MedicationSigDispense QuantityRefillsLast FilledStart DateEnd DateStatus aspirin 81 mg EC tablet Take 1 tablet by mouth in the morning.Active simvastatin (Zocor) 40 mg tablet Take 40 mg by mouth in the morning.02/08/2023ctive warfarin (Coumadin) 4 mg tablet Take 4 mg by mouth.02/08/2023ctive lisinopril 40 mg tablet Take 1 tablet by mouth in the morning.Active cloNIDine (Catapres) 0.1 mg tablet Take 0.1 mg by mouth two times daily.02/08/2023ctive carvedilol (Coreg) 25 mg tablet TAKE 1 TABLET BY MOUTH EVERY 8 HOURS WITH FOODActive pantoprazole (ProtoNix) 40 mg EC tablet Take 1 tablet by mouth in the morning.Active gemfibrozil (Lopid) 600 mg tablet Take 1 tablet by mouth in the morning and at bedtime.Active citalopram (CeleXA) 20 mg tablet Take 1 tablet by mouth in the morning.Active doxazosin (Cardura) 8 mg tablet Take 1 tablet by mouth in the morning.Active clopidogrel (Plavix) 75 mg tablet Take 75 mg by mouth in the morning.05/09/2024ctive ferrous sulfate 325 (65 Fe) MG tablet 1 (one) time each day at the same time.Active glimepiride (Amaryl) 1 mg tablet 1 (one) time each day at the same time.03/16/2024ctive rosuvastatin (Crestor) 40 mg tablet Indications:Hyperlipidemia, unspecified hyperlipidemia typeTAKE 1 TABLET BY MOUTH EVERY DAY IN THE MORNING 90 tablet 5Active chlorthalidone (Hygroton) 25 mg tablet Indications:Essential hypertensionTake 1 tablet (25 mg) by mouth every other day. 45 tablet 310510/ctive Active Problems ProblemNoted DateDiagnosed DateEncounter for therapeutic drug monitoring 04/15/2024Subclavian steal lwxvjhel74/10/8559Gnjhonydyya59/09/2024MI 35.0-35.9,adult02/01/2024arotid bruit02/01/2024hronic obstructive pulmonary jegpotr9502/01/2024iverticular znterhi8002/01/2024Fecal occult blood test positive 02/01/2024Heart zrsaekz5502/01/2024History of myocardial ixtdjdymtr94/05/2024 Nwnfsoqbgdkxeh69/05/2024Internal /05/2024Long term current use of uymtwqnlrwvof43/05/2024Morbid wykchos3602/01/2024Sleep apnea02/01/2024onduction disorder of the hearttrial Overview (03/18/2023): POSTOPERATIVE ONLY Disorder of evoimauzkad30 Overview (03/18/2023): POSTOPERATIVE Essential afjkaaghjnsv31astroesophageal reflux disease onstipation09/18/3Aortic valve disorder Overview (03/18/2023): 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 Coronary cvxgfalfmmpsklj24 Overview (03/18/2023): MILD Encounters DateTypeDepartmentCare MhikCrlbdjlvqhh49/18/2025Orders Only [facility] [address] [place] [facility] [place] [address] Vy Hamilton MA Abnormal EKG (Primary Dx)03/29/2025Refill [facility] [address] [place] [facility] [place] [address] Sophy Henry MA Essential hypertensionfrom Last 3 Months Family History Medical HistoryRelationNameCommentsNo Known ProblemsFatherNo Known Problems MotherRelationNameStatusCommentsFatherMother Social History Tobacco UseTypesPacks/DayYears UsedDateSmoking Tobacco: FormerCigarettes Smokeless Tobacco: Never Tobacco Cessation:Counseling Given: Not Answered [place] Safety & EnvironmentAnswerDate RecordedFear of Current or Ex-PartnerNot on file08/20/2023Emotionally AbusedNot on file08/20/2023hysically AbusedNot on file08/20/2023Sexually AbusedNot on file08/20/2023hysically or Sexually Abused Not on file08/20/2023Sex and Gender InformationValueDate RecordedSex Assigned at BirthNot on fileLegal NfkErzx4912/25/2021 10:10 PM EDTGender IdentityNot on file Sexual OrientationNot on file Last Filed Vital Signs Vital SignReadingTime TakenCommentsBlood Hygsdzxn588/7005/30/2024 1:56 PM EST Dyygl523005/30/2024 1:45 PM ESTTemperature--Respiratory Rate--Oxygen Mvtykjfung59% 05/30/2024 1:45 PM ESTInhaled Oxygen Concentration--Uxrclt32.2 kg (212 lb) 05/30/2024 1:45 PM BSXKbwuws980.6 cm (5' 6 )05/30/2024 1:45 PM ESTBody Mass Index34.22107/31/2023 1:45 PM EST Plan of Treatment Health MaintenanceDue DateLast DoneCommentsCT Lxqhzrltytcf1952iabetes: Hemoglobin A1C1952FIT-DNA1952FIT1952FOBT1952Medicare Annual Wellness (AWV)1950 7693Sutncpufdwcwo1952Diabetes: Retinopathy Kvsbvawpl26/30/1962Depression Fnvwtvtar21/30/1964Diabetes: Urine Protein Palasiycx54/30/1971Adult Vzaugns1201/25/1974Fall Risk Rqnlmgzon03/30/2017COVID-19 Vaccine ( season)5003/08/2025, 02/27/2024, 03/21/2023, Additional history dzqrsaWqcmnxdgaan53Colorectal Cancer Xxblxymdt94/19/2028Pneumococcal Vaccine: 50+ BclxuGxzzwrtbp02/15/2018, 02/05/2017Influenza ZnrddhhMtxtkmree73/10/2025, 03/01/2024, 03/13/2023, Additional history existsZoster PgdpuuzgNfirrnnzg19/10/2025, 03/01/2024HIB VaccinesAged OutNo longer eligible based on patient's age to complete this topic HPV VaccinesAged OutNo longer eligible based on patient's age to complete this topicIPV VaccinesAged OutNo longer eligible based on patient's age to complete this topicMeningococcal B VaccineAged OutNo longer eligible based on patient's age to complete this topicMeningococcal VaccineAged OutNo longer eligible based on patient's age to complete this topicRotavirus VaccinesAged OutNo longer eligible based on patient's age to complete this topic Insurance Care Teams Team MemberRelationshipSpecialtyStart DateEnd Abhishek Wooten MD [address] [facility] [place] [address] VBQ - Jltnazs03/18/23
--- OUTSIDE RECORDS SUMMARY | 2025-05-22 10:41 | XMS_ITS | Encounter Summary ---
Author Organization [facility] Address [address] [place] [address] Care Team Providers Care Tutor Name Role Phone Abhishek Wooten MD Primary Care Provider [phone] Reason for Referral * Imaging (Routine) - Pending ReviewSpecialtyDiagnoses / ProceduresReferred By ContactReferred To ContactCardiology Diagnoses Abnormal EKG Procedures Transthoracic echo (TTE) complete Alayna Langley MD [address] [facility] [address] [facility] [place] [address] Phone: tel: fax: Referral IDStatusReasonStart DateExpiration DateVisits RequestedVisits [id number] Review Perform Procedure 51 Encounter Details DateTypeDepartmentCare Team (Latest Contact Info)Fpmjuwcrrnk75/18/2025Orders Only [facility] [address] [place] [address] Vy Hamilton MA Abnormal EKG (Primary Dx) Social History Tobacco UseTypesPacks/DayYears UsedDateSmoking Tobacco: FormerCigarettes Smokeless Tobacco: NeverUT Safety & EnvironmentAnswerDate RecordedFear of Current or Ex-PartnerNot on file08/20/2023Emotionally AbusedNot on file 08/20/2023hysically AbusedNot on file02/22/2024Sexually AbusedNot on file 4Physically or Sexually AbusedNot on file08/20/2023Sex and Gender InformationValueDate RecordedSex Assigned at BirthNot on fileLegal SexMale 12/25/2021 10:10 PM EDTGender IdentityNot on fileSexual OrientationNot on file documented as of this encounter Plan of Treatment NameTypePriorityAssociated DiagnosesOrder ScheduleTransthoracic echo (TTE) completeEchocardiographyRoutine Abnormal EKG Expected: 05/16/2025 (Approximate), Expires: 05/16/2027documented as of this encounter Visit Diagnoses Diagnosis Abnormal EKG- Primary Nonspecific abnormal electrocardiogram (ECG) (EKG) documented in this encounter Care Teams Team MemberRelationshipSpecialtyStart DateEnd Abhishek Wooten MD [address] [place] [place] [address] PCP - [facility]03/18/23documented as of this encounter
--- NOTE | 2025-05-22 10:44 | CA_ITS ---
Patient Name: JOSE WEST MR#: [id number] : 1950 Exam Date: 05/22/2025 Ordering Doctor: DR BERNADETTE KIM M.D. ECHOCARDIOGRAM REPORT PROCEDURE: CA ECHO DOPPLER COMPLETE INDICATIONS: Abnormal EKG, Hx: Aortic valve replacement COMPARISON: None. DESCRIPTION: COMPLETE ECHOCARDIOGRAM Real-time transthoracic echocardiography with 2D, M-mode, spectral and color flow Doppler performed. QUALITY: Technical quality was good. LEFT VENTRICLE: Normal chamber size. Mild concentric left ventricular hypertrophy. Global left ventricular systolic function is normal. Visual estimation of left ventricular ejection fraction is 60-65%. LV EF: Normal left ventricular ejection fraction, (>55%). DIASTOLIC: Diastolic function is indeterminate. ATRIAL SEPTUM: LEFT ATRIUM: Normal chamber size. RIGHT ATRIUM: Normal chamber size. RIGHT VENTRICLE: Normal chamber size. Normal right ventricular systolic function. TRICUSPID VALVE: Normal mobility and thickness. No stenosis with mild regurgitation. No evidence of pulmonary hypertension. RVSP 30 mmHg. MITRAL VALVE: Normal mobility and thickness. No evidence of mitral valve stenosis. There is no mitral annular calcification. Trivial mitral regurgitation. AORTIC VALVE: Mechanical valve appears well seated in the aortic position with normal doppler flow. DVI 0.42, Vmax 2.5 m/s, peak/mean gradients 25/14 mmHg. Trivial aortic regurgitation. AORTIC ROOT: Normal diameter and appearance. The aortic root measures 3.5 cm. The ascending aorta is normal in size and measures 3.3 cm. PULMONIC VALVE: Normal thickness and mobility. No stenosis. Mild regurgitation. PERICARDIUM: No evidence of pericardial effusion. IVC: Collapses with inspiration. The IVC is normal in size measuring 1.6 cm. PLEURA: CONCLUSION: 1. Mild concentric left ventricular hypertrophy with normal systolic function. LVEF is estimated at 60 to 65%. 2. Normal right ventricular size and systolic function. 3. Mechanical valve in the aortic position has normal function. No significant stenosis or regurgitation. 4. Mild tricuspid regurgitation. 5. Normal right-sided pressures. Adult Echocardiography Procedure Report Left Ventricle LVEDD (3.7 - 5.6 cm): 5.13 cm LVESD (2.2 - 4.0 cm): 3.01 cm LVIVS thickness (0.6 - 1.2 cm): 1.19 cm LVPW thickness (0.5 - 1.0 cm): 1.21 cm e': 0.08 m/s E - e': 12.04 LVOT Max Gradient: 4.29 mm[Hg] LVOT Area (cm2): 1.04 m/s Peak Velocity (LVOT): 1.04 m/s Mean Velocity (LVOT): 0.71 m/s LVOT Diameter 2.15 cm Left Ventricular Ejection Fraction: 60-65 % Left Atrium LA Volume Index (2D A2C): 29.56 ml/m2 Left Atrium Systolic Dimension: 3.65 cm Mitral Valve MV E to A Ratio: 1.06 Mitral Valve A-Wave Peak Velocity: 0.94 m/s Mitral Valve E-Wave Peak Velocity: 0.99 m/s Right Ventricle RV Internal Diastolic Dimension: 3.79 cm Aorta AO Root Diam: 3.47 cm Ascending Ao Diam: 3.28 cm Aortic Valve AoV Area (Peak Bubba): 1.53 cm2, 1.51 cm2 AoV Area (VTI): 1.72 cm2, 1.79 cm2 Peak Velocity(Antegrade Flow): 2.49 m/s, 2.44 m/s, 2.46 m/s Peak Gradient(Antegrade Flow): 24.79 mm[Hg], 23.81 mm[Hg], 24.20 mm[Hg] Mean Velocity(Antegrade Flow): 1.72 m/s, 1.60 m/s, 1.63 m/s Mean Gradient(Antegrade Flow): 13.49 mm[Hg], 12.08 mm[Hg], 12.29 mm[Hg] Velocity Time Integral: 54.19 cm, 59.94 cm, 54.84 cm Tricuspid Valve Peak Velocity (Regurgitant Flow): 2.59 m/s, 2.43 m/s, 2.47 m/s Pulmonic Valve Peak Velocity: 1.05 m/s Peak Gradient: 4.18 mm[Hg], 4.63 mm[Hg] Right Atrium Right Atrium Systolic Pressure: 42.42 ml, 42.42 ml Dictated by: Jeremy Reddy M.D. on 05/23/2025 at 18:57 Approved by: Jeremy Reddy M.D. on 05/23/2025 at 19:04
== END 2025-05-22 10:38 | disposition home or self-care (01) ==
LOC: CARD 10:37
PROVIDERS: PCP Family Medicine; Visit Provider Internal Medicine Interventional Cardiology
DX: R94.31 Abnormal electrocardiogram [ECG] [EKG] (principal)
CPT/HCPCS: 93306

== ENCOUNTER 2025-05-29 11:42 | Outpatient (RCR) | payer MEDICARE, SELFPAY | END 2025-06-28 12:51 | disposition home or self-care (01) | LOC: MM 11:42 | PROVIDERS: PCP Family Medicine; Visit Provider Internal Medicine | DX: Z51.81 Encounter for therapeutic drug level monitoring (principal); Z79.01 Long term (current) use of anticoagulants; I48.91 Unspecified atrial fibrillation | CPT/HCPCS: 85610; G0463 ==